=== PATIENT | male | born 1960 | race Caucasian/White ===

== ENCOUNTER → 2020-12-07 15:04 | Outpatient (BNVA) | payer SELFPAY | PROVIDERS: Family Provider Family Medicine; Visit Provider Nurse Practitioner Family | DX: Z20.822 Contact with and (suspected) exposure to COVID-19 (principal) | CPT/HCPCS: 87635 ==

== ENCOUNTER → 2022-06-02 11:23 | Outpatient (BNVA) | payer MEDICAID, SELFPAY | PROVIDERS: Family Provider Family Medicine; PCP Internal Medicine; Visit Provider Internal Medicine Rheumatology | DX: M25.50 Pain in unspecified joint (principal); M06.9 Rheumatoid arthritis, unspecified; Z79.899 Other long term (current) drug therapy; M19.90 Unspecified osteoarthritis, unspecified site; M05.79 Rheumatoid arthritis with rheumatoid factor of multiple sites without organ or systems involvement; Z71.85 Encounter for immunization safety counseling; M19.041 Primary osteoarthritis, right hand; M19.042 Primary osteoarthritis, left hand | CPT/HCPCS: 36415; 73130; 73562; 73630; 80076; 82565; 84550; 85025; 85651; 86140; 86480; 86704; 86803; 87340 ==

== ENCOUNTER → 2022-09-01 08:53 | Outpatient (BNVA) | payer MEDICAID, SELFPAY | PROVIDERS: Family Provider Family Medicine; PCP Family Medicine; Visit Provider Family Medicine | DX: I10 Essential (primary) hypertension (principal) | CPT/HCPCS: 80053; 80061; 83036 ==

== ENCOUNTER 2022-11-14 06:43 | Day surgery (SDC) | payer MEDICAID, SELFPAY ==
[2022-11-11 11:46] VITALS: BMI 34.4
[2022-11-14] VITALS (14 sets, daily range): BP systolic 129–180; BP diastolic 79–109; PULSE 72–94; RESP 16–18; TEMP 36.1–36.7; O2SAT 90–97
--- NOTE | 2022-11-14 06:58 | PM.HP ---
Providers/Chief Complaint Primary Care Provider: Itz Pierson MD Chief Complaint: K42.9 History of Present Illness Ely Hare is a 62 year old male here for laparoscopic repair of umbilical hernia with mesh Medications/Allergies Home Medications Medication Instructions Recorded Confirmed Last Taken Type lisinopril 40 mg tablet 40 mg PO DAILY #30 tabs 08/26/22 11/11/22 Unknown Rx amlodipine 10 mg tablet 10 mg PO DAILY #90 tabs 09/01/22 11/11/22 Unknown Rx metformin 500 mg tablet,extended 500 mg PO BID #180 tabs 09/02/22 11/11/22 Unknown Rx release 24hr prednisone 10 mg tablet 10 mg PO DAILY 11/11/22 11/11/22 Unknown History Allergies Allergy/AdvReac Type Severity Reaction Status Date / Time No Known Allergies Allergy Verified 11/11/22 11:43 PFSH Acute PFSH: Medical History Gout Hypertension Immunization counseling Seropositive rheumatoid arthritis of multiple sites Surgical History History of hernia repair Family History Mother Cancer breast Father Cancer non hodgkins lymphoma Other CAD (coronary artery disease) Diabetes Family history of premature coronary artery disease Denies family history of Rheumatoid arthritis Lupus Hyperlipidemia Chronic kidney disease (CKD) Lung disease Hypertension Stroke Social History Smoking and tobacco status: never smoked Alcohol intake: never Substance/Drug Use: never Lives independently: Yes Marital status: Single Number of children: 1 Current occupational status: retired Special jennifer needs: No Agree to transfusion: Yes Physical Exam Narrative: Abdomen: Preoperative measurement of umbilical hernia defect is 5 cm in diameter A&P Assessment and plan (1) Umbilical hernia: Qualifiers: Obstruction and gangrene presence: without obstruction or gangrene Qualified Code(s): K42.9 - Umbilical hernia without obstruction or gangrene Plan Laparoscopic umbilical hernia repair with mesh The risks and benefits of the procedure, including but not limited to, bleeding, infection, mesh infection requiring mesh excision antibiotic therapy and repeat surgery, damage surrounding structures, conversion to an open procedure, scar, numbness, pain, and/or recurrence were explained to the patient. Patient is understanding of the risks and wishes to proceed. Attestations Medical Necessity Statement*: home Coding Level of Care Code Acute Code for Chg Fwd Diagnoses Umbilical hernia K42.9 Obstruction and gangrene presence: without obstruction or gangrene
[2022-11-14] MEDS: sodium chloride 0.9% 1,000 ML 30 ML IV (07:16)
--- NOTE | 2022-11-14 07:36 | P.ANESASSM_ITS ---
Pre-Anesthetic Assessment Height/Weight: Height 1.7 m Weight 99.79 kg Temp Pulse Resp BP Pulse Ox O2 Del Method 97 F L 94 18 180/90 93 Room Air 11/14/22 07:22 11/14/22 07:22 11/14/22 07:22 11/14/22 07:22 11/14/22 07:22 11/14/22 07:22 Operation Date: 11/14/22 08:20 Proposed Procedures p 22900 lap umbilical hernia repair with mesh K42.9(Not Applicable) - Francisco Javier Cervantes DO Familial anesthetic complications: None Was Beta Linnette taken within 24 hours: N/A Was Clonidine taken within 24 hours: N/A Last intake: Intake Last Liquid Date 11/13/22 Last Liquid Time 22:00 Last Solid Date 11/13/22 Last Solid Time 22:00 Social No alcohol and No tobacco Exam alert, oriented x 3, clear to auscultation bilaterally and regular rate & rhythm Airway Mallampati: Class III Dentition: other (missing) CV/HEM Hypertension Metabolic Diabetes Mellitus and Morbid Obesity [facility] [place] Rheumatoid Arthritis Anesthetic Plan ASA status: 3 Anesthesia: General Risk of > 500 ml blood loss (7ml/kg in children): No Medications/Allergies Home Medications Medication Instructions Recorded Confirmed Last Taken Type lisinopril 40 mg tablet 40 mg PO DAILY #30 tabs 08/26/22 11/11/22 Unknown Rx amlodipine 10 mg tablet 10 mg PO DAILY #90 tabs 09/01/22 11/11/22 Unknown Rx metformin 500 mg tablet,extended 500 mg PO BID #180 tabs 09/02/22 11/11/22 Unknown Rx release 24hr prednisone 10 mg tablet 10 mg PO DAILY 11/11/22 11/11/22 Unknown History Allergies Allergy/AdvReac Type Severity Reaction Status Date / Time No Known Allergies Allergy Verified 11/11/22 11:43 Current Medications Generic Name Dose Route Start Last Admin Trade Name Freq PRN Reason Stop Dose Admin Sodium Chloride 1,000 mls @ 30 mls/hr 11/14/22 07:00 11/14/22 07:16 Sodium Chloride 0.9% IV 11/15/22 06:59 30 mls/hr .Q24H AMBER Administration PFSH Anesthesia Medical History Gout Hypertension Immunization counseling Seropositive rheumatoid arthritis of multiple sites Surgical History History of hernia repair Family History Mother Cancer breast Father Cancer non hodgkins lymphoma Other CAD (coronary artery disease) Diabetes Family history of premature coronary artery disease Denies family history of Rheumatoid arthritis Lupus Hyperlipidemia Chronic kidney disease (CKD) Lung disease Hypertension Stroke Social History Smoking and tobacco status: never smoked Alcohol intake: never Substance/Drug Use: never Lives independently: Yes Marital status: Single Number of children: 1 Current occupational status: retired Special jennifer needs: No Agree to transfusion: Yes Data Anesthesia Cardiac Studies: No Data to Display
[2022-11-14] MEDS: midazolam 1 mg/mL INJ 2 mL 2 MG IVP (07:38)
[2022-11-14] MEDS: ceFAZolin 2,000 MG in sodium chloride 0.9% (plus) 50 ML 100 MG IV (07:55)
[2022-11-14 08:14] LABS: Glucose Point of Care 172 mg/dL (70-110)
[2022-11-14] MEDS: lidocaine-epi 2% 20 mL INJ INJECTION (08:25)
--- NOTE | 2022-11-14 08:57 | PM.OP ---
Operative Report Date of procedure: November 14, 2022 Pre-op diagnosis: Umbilical hernia Post-op diagnosis: same Procedure done: Laparoscopic repair of umbilical hernia with mesh Implants: 11.4 cm round Ventralight mesh Specimens removed/disposition: Hernia sac Surgeon: Dr. Francisco Javier Cervantes DO Anesthesia: General Estimated blood loss (mL): 5 Complications: None apparent Brief History: This is a very pleasant 62-year-old gentleman with an umbilical hernia. Laparoscopic repair with mesh was indicated. The risk and benefits were explained and documented. Procedure: Patient was wheeled into the operative room and placed on the OR table in a supine position. Abdomen was inspected prepped and draped in usual sterile fashion. Time-out was performed and all present were in agreement. A 15 blade scalp was used to make a 5 millimeter incision left upper quadrant. A Veress needle was placed into the incision and intra-abdominal insufflation was brought to 15 millimeters of mercury. A 12 millimeter trocar was placed into the left lower quadrant. The energy but device was then used to cut out the hernia sac. Hernia sac was sent to pathology. Hernia defect measured 2 cm in diameter intraoperatively. An 11.4 cm ventralight mesh was placed into the abdomen and brought up through the umbilicus using an the Daniel-Rossana. The mesh was then tacked in place in a double crown fashion. The skeleton of the mesh was removed via the left lower quadrant. The hernia sac was then removed from the abdomen via the left lower quadrant. The left lower quadrant port site was closed with an 0 Vicryl suture and a Daniel-Rossana in a [id number] fashion. Incisions were closed with 4 O Vicryl in a subcuticular interrupted fashion. Skin glue was applied. A dressing that included cotton balls and a Tegaderm was placed over the umbilicus. Patient tolerated the procedure well.
[2022-11-14] MEDS: fentaNYL 50 mcg/mL INJ 2mL IVP (09:46)
[2022-11-14] MEDS: labetalol 5 mg/mL SDV 20mL 100 MG (09:47)
[2022-11-14] MEDS: HYDROcodone-acetaminophen 10-325 mg Tablet 1 TAB PO (10:45)
--- NOTE | 2022-11-14 10:50 | ANE.PACU2 ---
Inpatient post-anesthesia follow up: Airway intact: Yes Vital signs: Temperature 98 F Pulse Rate 74 Respiratory Rate 18 Blood Pressure 150/90 Pulse Oximetry 94 Oxygen Delivery Me thod Room Air Oxygen Flow Rate 2 Fraction of Inspir ed Oxygen Hydration adequate: Yes Nausea and vomiting: No Pain level: 1 Mental status: Baseline
== END 2022-11-14 11:18 | disposition home or self-care (01) ==
PROVIDERS: PCP Family Medicine; Visit Provider Surgery
PROC: 0WQF4ZZ Repair Abdominal Wall, Percutaneous Endoscopic Approach (ICD-10-PCS; CPT 49591; principal; 2022-11-14 08:20)
DX: K42.9 Umbilical hernia without obstruction or gangrene (principal); I10 Essential (primary) hypertension; M05.9 Rheumatoid arthritis with rheumatoid factor, unspecified; E11.9 Type 2 diabetes mellitus without complications; Z79.52 Long term (current) use of systemic steroids; Z79.84 Long term (current) use of oral hypoglycemic drugs
CPT/HCPCS: 49591; 36416; 82962; 88302; C1781; J0690; J1100; J2250; J2371; J2405; J2704; J2710; J3010; J3490; J7030

== ENCOUNTER → 2022-11-29 09:11 | Outpatient (BNVA) | payer MEDICAID, SELFPAY | PROVIDERS: PCP Family Medicine; Visit Provider Surgery | DX: Z98.890 Other specified postprocedural states (principal); Z87.19 Personal history of other diseases of the digestive system | CPT/HCPCS: 99024 ==

== ENCOUNTER → 2024-01-10 10:45 | Outpatient (BNVA) | payer MEDICAID, SELFPAY | PROVIDERS: PCP Family Medicine; Visit Provider Nurse Practitioner Family | DX: L57.0 Actinic keratosis (principal); L57.8 Other skin changes due to chronic exposure to nonionizing radiation; D69.2 Other nonthrombocytopenic purpura; I87.2 Venous insufficiency (chronic) (peripheral); D22.39 Melanocytic nevi of other parts of face; L81.4 Other melanin hyperpigmentation; Z85.828 Personal history of other malignant neoplasm of skin | CPT/HCPCS: 17000; 99213 ==

== ENCOUNTER 2024-01-22 16:53 | Emergency (ER) | payer MEDICAID, SELFPAY ==
[2024-01-22] VITALS (10 sets, daily range): BP systolic 167–194; BP diastolic 108–136; PULSE 94–118; RESP 12–22; TEMP 36.5–36.6; O2SAT 92–99; BMI 37.5
--- NOTE | 2024-01-22 17:10 | ECG_ITS ---
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 Measurements Intervals [place] Rate: 106 P: 54 MN: 174 QRS: 7 QRSD: 102 T: 100 QT: 355 QTc: 473 Interpretive Statements SINUS TACHYCARDIA POSSIBLE LEFT ATRIAL ENLARGEMENT [-0.1mV P-WAVE IN V1/V2] SEPTAL MYOCARDIAL INFARCTION , PROBABLY OLD [40+ ms Q WAVE IN V1/V2] Compared to ECG 08/29/2014 12:45:37 Myocardial infarct finding now present Sinus rhythm no longer present Left ventricular hypertrophy no longer present Electronically Signed On 01-23-2024 7:57:41 CDT by Jose Antonio Head M.D. [email or web address] [email or web address] [email or web address]/store/[id number] f
--- NOTE | 2024-01-22 18:23 | XRR_ITS ---
PROCEDURE INFORMATION: Exam: XR Chest Exam date and time: 01/22/2024 6:37 PM Age: 63 years old Clinical indication: Dyspnea TECHNIQUE: Imaging protocol: Radiologic exam of the chest. Views: 1 view. COMPARISON: No relevant prior studies available. FINDINGS: Lungs: Both lungs demonstrate diffuse interstitial coarsening which is felt to be chronic. No lung mass or infiltrate. Pleural spaces: Unremarkable. No pleural effusion. No pneumothorax. Heart/Mediastinum: Unremarkable. No cardiomegaly. Bones/joints: Unremarkable. XR/XR chest 1V portable [id number] IMPRESSION: No acute findings.
--- NOTE | 2024-01-22 18:40 | ECG_ITS ---
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 Measurements Intervals [place] Rate: 105 P: 41 ID: [id number] QRS: 3 QRSD: 102 T: 100 QT: 334 QTc: 443 Interpretive Statements SINUS TACHYCARDIA POSSIBLE LEFT ATRIAL ENLARGEMENT [-0.1mV P-WAVE IN V1/V2] SEPTAL MYOCARDIAL INFARCTION , PROBABLY OLD [40+ ms Q WAVE IN V1/V2] Compared to ECG 01/22/2024 17:10:47 No significant changes Electronically Signed On 01-23-2024 7:57:31 CDT by Jose Antonio Head M.D. [email or web address]/store/[id number] f
[2024-01-22 19:32] LABS: Basophils # 0.1 10^3/uL (0.0-0.1); Basophils % 0.9 %; Eosinophils # 0.4 10^3/uL (0.0-0.8); Eosinophils % 4.1 %; Hematocrit 42.7 % (37-53); Lymphocytes # 1.9 10^3/uL (0.8-4.8); Lymphocytes % 21.1 %; Mean Corpuscular HGB Conc 30.7 g/dL (30-55); Mean Corpuscular Hemoglobin 28.4 pg (27-33); Mean Corpuscular Volume 92.4 fl (82-101); Mean Platelet Volume 10.6 fL (7.4-10.4); Monocytes # 0.6 10^3/uL (0.2-0.9); Monocytes % 6.9 %; Neutrophils # 6.11 10^3/uL (1.8-7.7); Neutrophils % 66.7 %; Nucleated Red Blood Cells % 0 %; Platelet Count 256 10^3/cmm (157-399); Red Blood Count 4.62 10^6/uL (3.85-5.65); Red Cell Distribution Width 14.2 % (12.1-15.1); White Blood Count 9.16 10^3/uL (3.29-11.43)
[2024-01-22 19:45] LABS: Alanine Aminotransferase 28 U/L (0-41); Albumin Level 4.3 g/dL (3.5-5.2); Alkaline Phosphatase 109 U/L (40-130); Blood Urea Nitrogen 21 mg/dL (8-23); Calcium 9.7 mg/dL (8.5-10.5); Carbon Dioxide 25 mmol/L (22-29); Chloride 103 mmol/L (98-107); Creatinine Clr Calc Pharmacy 62.7338; Globulin 2.1 g/dL (1.3-4.6); Glucose 160 mg/dL (65-115); Osmolality Calculated 296 mOsm/kg (285-295); Sodium 140 mmol/L (136-145); Total Bilirubin 2.1 mg/dL (0.15-1.2); Total Protein 6.4 g/dL (6.6-8.7)
[2024-01-22 19:49] LABS: Anion Gap 16.4 (5-19); Aspartate Amino Transferase 30 U/L (0-40); Potassium 4.4 mmol/L (3.5-5.1)
--- NOTE | 2024-01-22 21:02 | CTR_ITS ---
PROCEDURE INFORMATION: Exam: CTA Chest With Contrast Exam date and time: 01/22/2024 9:26 PM Age: 63 years old Clinical indication: Dyspnea; Additional info: Tachycardia, tachypnea dyspnea TECHNIQUE: Imaging protocol: Computed tomographic angiography of the chest with contrast. Exam focused on the arteries. 3D rendering (Not supervised by radiologist): MIP and/or 3D reconstructed images were created by the technologist. Radiation optimization: All CT scans at this facility use at least one of these dose optimization techniques: automated exposure control; mA and/or kV adjustment per patient size (includes targeted exams where dose is matched to clinical indication); or iterative reconstruction. Contrast material: OMNI 350; Contrast volume: 100 ml; Contrast route: INTRAVENOUS (IV); COMPARISON: CR (CHEST, ) 01/22/2024 6:37 PM RADIATION DOSE METRICS: Total DLP (mGy-cm): 594 FINDINGS: Pulmonary arteries: Normal. No pulmonary emboli. Aorta: Unremarkable. No aortic aneurysm. No aortic dissection. Lungs: There is diffuse bronchial wall thickening and mucous plugging scattered throughout both lungs. Hazy ground-glass density is noted throughout both lungs and there is diffuse septal edema bilaterally. Pleural spaces: Small bilateral pleural effusions are noted. Heart: Moderate cardiomegaly is noted. Lymph nodes: Unremarkable. No enlarged lymph nodes. Bones/joints: Unremarkable. No acute fracture. Soft tissues: Unremarkable. CT/CT angio chest PE protcl [id number] IMPRESSION: Findings most consistent with congestive heart failure. There may also be a component of reactive airway disease
--- NOTE | 2024-01-22 21:05 | ED_ITS ---
HPI - SOB/Dyspnea 2 General: Chief Complaint: Shortness of Breath/Dyspnea Stated Complaint: SOB Time Seen by Provider: 01/22/24 20:25 History of Present Illness: HPI Narrative: Patient presents to the ER with about a 3-day history of worsening shortness of breath. Patient denies any history of COPD or asthma. Patient does state that he has a home oxygen tank that is not his and has had to use it multiple times throughout the day. Patient did say he had COVID twice the last time being a couple years ago but he had to be inpatient multiple days during his COVID. Upon arrival patient's heart rate was 109 beats a minute respirations 21. O2 sat was approximately 95% when placed on 2 L. Patient says he feels like he cannot take a big deep breath and move air. Patient denies any chest pain coughs colds fevers chills at this time. Related Data Previous Rx's Medication Instructions Recorded docusate sodium 100 mg capsule 100 mg PO BID #14 caps 11/14/22 (Colace) amlodipine 10 mg tablet 10 mg PO DAILY #90 tabs 11/23/22 hydrochlorothiazide 12.5 mg capsule 25 mg (2 x 12.5 mg) PO QAM #30 caps 11/23/22 lisinopril 40 mg tablet 40 mg PO DAILY #90 tabs 11/23/22 metformin 500 mg tablet,extended 500 mg PO BID #180 tabs 11/23/22 release 24hr (osmotic) Allergies Allergy/AdvReac Type Severity Reaction Status Date / Time No Known Allergies Allergy Verified 01/22/24 17:16 Review of Systems 2 General: Reports: 10 or more systems reviewed and unremarkable except in HPI and below PFSH ED 2 PFSH: Medical History Psychiatric care Gout Immunization counseling Seropositive rheumatoid arthritis of multiple sites Hypertension Surgical History History of hernia repair Family History Mother Cancer breast Father Cancer non hodgkins lymphoma Other CAD (coronary artery disease) Diabetes Family history of premature coronary artery disease Denies family history of Rheumatoid arthritis Lupus Hyperlipidemia Chronic kidney disease (CKD) Lung disease Hypertension Stroke Social History (Reviewed 01/22/24 @ 21:06 by KALPESH Dyer Smoking and tobacco/nicotine status: never used tobacco/nicotine Alcohol intake: never Substance/Drug Use: never Lives independently: Yes Marital status: Single Number of children: 1 Current occupational status: retired Special jennifer needs: No Agree to transfusion: Yes Physical Exam 2 Const: COMMON NORMALS: no acute distress, average body habitus, patient oriented x3, no limitations, healthy appearing, alert and well nourished HENMT: COMMON NORMALS: normocephalic, atraumatic, hearing grossly normal bilaterally, external ears normal, Normal external nose present and moist oral mucous membranes HEAD & SCALP: normocephalic and atraumatic NOSE: Normal external nose present EXTERNAL EAR: Yes external ears normal Neck/C-Spine: COMMON NORMALS: no JVD Chest: COMMONS NORMALS: normal inspection of the chest and normal palpation of entire chest wall Resp: COMMON NORMALS: normal respiratory effort, No retractions, No use of accessory muscles and clear to auscultation bilaterally AUSCULTATION: clear to auscultation bilaterally Cardio: COMMON NORMALS: no JVD, regular rate, regular rhythm, S1 normal heart sound present, S2 normal heart sound present, No gallops present (Cardio), No clicks present (Cardio), No murmurs present (Cardio) and No rub (Cardio) R ATE: regular rate RHYTHM: regular rhythm HEART SOUNDS: S1 normal heart sound present and S2 normal heart sound present GI: COMMON NORMALS: Normal to inspection, nondistended, normoactive bowel sounds present, Soft to palpation, non-tender, No hepatosplenomegaly present and no masses PALPATION: Yes Soft to palpation and Yes No hepatosplenomegaly present Neuro: COMMON NORMALS: patient oriented x3 SENSORIUM/ORIENTATION: Yes alert Course 2 Vital Signs: Vital signs: Vital Signs Temperature 97.7 F 01/22/24 18:41 Pulse Rate 109 H 01/23/24 00:00 Respiratory Rate 18 01/23/24 00:00 Blood Pressure 175/131 01/23/24 00:00 Pulse Oximetry 97 01/23/24 00:00 Oxygen Delivery Me thod Nasal Cannula 01/23/24 00:00 Oxygen Flow Rate 4 01/23/24 00:00 MDM - SOB/Dyspnea Medical Decision Making Patient left AMA while waiting for test to return. Differential Diagnosis Unlikely acute exacerbation of chronic obstructive airways disease, congestive heart failure, community acquired pneumonia, asthma with exacerbation or pulmonary embolism Medical Records I reviewed the patient's medical records. Lab Data I reviewed the patient's lab results. 01/22/24 19:08 01/22/24 19:08 Labs/Radiology: Radiology Impressions Chest X-Ray 01/22/24 18:23 IMPRESSION: No acute findings. Chest CTA 01/22/24 21:02 IMPRESSION: Findings most consistent with congestive heart failure. There may also be a component of reactive airway disease Laboratory Results WBC 9.16 10^3/uL (3.29-11.43) 01/22/24 19:08 RBC 4.62 10^6/uL (3.85-5.65) 01/22/24 19:08 Hgb 13.10 g/dL (11.27-16.99) 01/22/24 19:08 Hct 42.7 % (37-53) 01/22/24 19:08 MCV 92.4 fl (82-101) 01/22/24 19:08 MCH 28.4 pg (27-33) 01/22/24 19:08 MCHC 30.7 g/dL (30-55) 01/22/24 19:08 RDW 14.2 % (12.1-15.1) 01/22/24 19:08 Plt Count 256 10^3/cmm (157-399) 01/22/24 19:08 MPV 10.6 fL (7.4-10.4) H 01/22/24 19:08 Neut % (Auto) 66.7 % 01/22/24 19:08 Lymph % (Auto) 21.1 % 01/22/24 19:08 [place] % (Auto) 6.9 % 01/22/24 19:08 Eos % (Auto) 4.1 % 01/22/24 19:08 Baso % (Auto) 0.9 % 01/22/24 19:08 Neut # (Auto) 6.11 10^3/uL (1.8-7.7) 01/22/24 19:08 Lymph # (Auto) 1.9 10^3/uL (0.8-4.8) 01/22/24 19:08 [place] # (Auto) 0.6 10^3/uL (0.2-0.9) 01/22/24 19:08 Eos # (Auto) 0.4 10^3/uL (0.0-0.8) 01/22/24 19:08 Baso # (Auto) 0.1 10^3/uL (0.0-0.1) 01/22/24 19:08 Nucleated RBC % (auto) 0 % 01/22/24 19:08 Nucleated RBCs # 0.0 /100WBC 01/22/24 19:08 Sodium 140 mmol/L (136-145) 01/22/24 19:08 Potassium 4.4 mmol/L (3.5-5.1) 01/22/24 19:08 Chloride 103 mmol/L (98-107) 01/22/24 19:08 Carbon Dioxide 25 mmol/L (22-29) 01/22/24 19:08 Anion Gap 16.4 (5-19) 01/22/24 19:08 BUN 21 mg/dL (8-23) 01/22/24 19:08 Creatinine 1.4 mg/dL (0.7-1.2) H 01/22/24 19:08 GFR Calculation 51.0 mL/min (90-130) L 01/22/24 19:08 Glucose 160 mg/dL (65-115) H 01/22/24 19:08 Calculated Osmolality 296 mOsm/kg (285-295) H 01/22/24 19:08 Calcium 9.7 mg/dL (8.5-10.5) 01/22/24 19:08 Total Bilirubin 2.1 mg/dL (0.15-1.2) H 01/22/24 19:08 AST 30 U/L (0-40) 01/22/24 19:08 ALT 28 U/L (0-41) 01/22/24 19:08 Alkaline Phosphatase 109 U/L (40-130) 01/22/24 19:08 NT-Pro-B Natriuret Pep 4250 pg/mL (0-125) H 01/22/24 19:08 Total Protein 6.4 g/dL (6.6-8.7) L 01/22/24 19:08 Albumin 4.3 g/dL (3.5-5.2) 01/22/24 19:08 Globulin 2.1 g/dL (1.3-4.6) 01/22/24 19:08 Coronavirus (PCR) Negative (Negative) 01/22/24 20:14 Influenza A (PCR) Negative (Negative) 01/22/24 20:14 Influenza Type B (PCR) Negative (Negative) 01/22/24 20:14 RSV (PCR) Negative (Negative) 01/22/24 20:14 All radiology interpretation(s) finalized by discharge Discharge Plan Discharge Patient Disposition: Left Against Medical Advice Clinical Impression: Left against medical advice Condition: Stable Prescriptions: No Action hydrochlorothiazide 12.5 mg capsule 25 mg PO QAM Qty: 30 1RF amlodipine 10 mg tablet 10 mg PO DAILY Qty: 90 1RF metformin 500 mg tablet extended release 24hr 500 mg PO BID Qty: 180 1RF lisinopril 40 mg tablet 40 mg PO DAILY Qty: 90 1RF Colace 100 mg capsule 100 mg PO BID Qty: 14 0RF Referrals: Itz Pierson MD [Primary Care Provider] - 1 week Patient Instructions: Against Medical Advice (ED) Coding Level of Care Code ED 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
[2024-01-22] MEDS: iohexol 350 mg/mL 500 mL Btl (per mL) IV (21:30)
[2024-01-22 21:39] LABS: Covid PCR NEGATIVE (Negative); Influenza A NEGATIVE (Negative); Influenza B NEGATIVE (Negative); Respiratory Syncytial Virus Ce NEGATIVE (Negative)
[2024-01-22 22:46] LABS: NT Pro B Type Natriuretic Pept 4250 pg/mL (0-125)
[2024-01-22] MEDS: hyDRALAzine 20 mg/mL INJ 1 mL IVP (23:34)
[2024-01-22] MEDS: FUROsemide 10 mg/mL SDV 4mL 40 MG IVP (23:34)
[2024-01-23] VITALS: BP 175/131; PULSE 109; RESP 18; O2SAT 97
== END 2024-01-23 00:18 | disposition left against medical advice (07) ==
PROVIDERS: Emergency Provider Emergency Medicine; PCP Family Medicine
DX: R06.02 Shortness of breath (principal); Z79.84 Long term (current) use of oral hypoglycemic drugs; I10 Essential (primary) hypertension; Z53.29 Procedure and treatment not carried out because of patient's decision for other reasons
CPT/HCPCS: 0241U; 36415; 71045; 71275; 80053; 83880; 85025; 93005; 96374; 96375; 99285; J0360; J1940

== ENCOUNTER 2024-04-24 09:07 | Inpatient (IN) | payer BC, MEDICAID, SELFPAY ==
[2024-04-24] VITALS (47 sets, daily range): BP systolic 116–160; BP diastolic 85–115; PULSE 78–109; RESP 9–29; TEMP 36.6–37.2; O2SAT 85–100; BMI 39.1
--- NOTE | 2024-04-24 09:37 | XR_ITS ---
WS: [id number] Portable AP semiupright chest, 04/24/2024 Clinical Data: dyspnea/cough Comparison: Portable chest, 01/22/2024 Findings: No nodules, masses or effusions are seen. The heart is enlarged. The pulmonary vascularity is not increased. No pneumonia or pneumothorax is seen. The aortic arch and descending thoracic aorta show tortuosity. The right diaphragm is elevated and the patient has a poor inspiratory effort. Jocelynn tor leads are on the chest wall. XR/XR chest 1V portable [id number] Impression: Cardiomegaly and atherosclerosis.
--- NOTE | 2024-04-24 09:37 | ECG_ITS ---
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 Measurements Intervals [place] Rate: 88 P: 10 CA: 189 QRS: 38 QRSD: 100 T: -33 QT: 376 QTc: 455 Interpretive Statements SINUS RHYTHM ABNORMAL QRS-T ANGLE [QRS-T AXIS DIFFERENCE > 60] Compared to ECG 01/22/2024 18:41:37 Sinus tachycardia no longer present Myocardial infarct finding no longer present Electronically Signed On 04-24-2024 21:16:32 ARMATURE WINDER REPAIR HELPER by Marylu Nick M.D. [id number]
[2024-04-24 09:58] LABS: Basophils # 0.1 10^3/uL (0.0-0.1); Basophils % 0.8 %; Eosinophils # 0.3 10^3/uL (0.0-0.8); Eosinophils % 2.5 %; Hematocrit 45.2 % (37-53); Lymphocytes # 1.3 10^3/uL (0.8-4.8); Lymphocytes % 11.4 %; Mean Corpuscular HGB Conc 28.8 g/dL (30-55); Mean Corpuscular Hemoglobin 22.5 pg (27-33); Mean Corpuscular Volume 78.2 fl (82-101); Mean Platelet Volume 10.6 fL (7.4-10.4); Monocytes # 0.9 10^3/uL (0.2-0.9); Monocytes % 7.6 %; Neutrophils % 77.4 %; Nucleated Red Blood Cells % 0 %; Platelet Count 438 10^3/cmm (157-399); Red Blood Count 5.78 10^6/uL (3.85-5.65); Red Cell Distribution Width 19.7 % (12.1-15.1); White Blood Count 11.62 10^3/uL (3.29-11.43)
[2024-04-24 09:58] LABS: ABG PCO2 34.3 mmHg (35-45); ABG PH Result 7.42 (7.35-7.45); Alveolar-Arterial Oxygen Gradi 1.5 mmHg (5-10); Base Excess ABG -1.9 mmol/L (-2.0-2.0); Blood Gas Allen Test Pos; Blood Gas Operator Identificat WALCI; Blood Gas Sample Site Radial, left; Blood Gas Sample Type Arterial; Carboxyhemoglobin 1.3 %THgb (0.4-20.1); HGB O2 Sat 96.1 % (95-100); Ionized Calcium Level - ABG 1.2 mmol/L (1.1-1.4); Methemoglobin 0.8 % (0.4-1.5); Oxygen Device NC; Oxygen Saturation ABG 98.2; PO2 ABG 95.5 mmHg (80.0-100.0); Potassium Level - ABG 3.8 mmol/L (3.5-5.0); Total Hemoglobin 12.4 g/dL (14-18)
[2024-04-24 10:06] LABS: Alanine Aminotransferase 30 U/L (0-41); Albumin Level 3.7 g/dL (3.5-5.2); Alkaline Phosphatase 173 U/L (40-130); Anion Gap 15.9 (5-19); Aspartate Amino Transferase 34 U/L (0-40); Blood Urea Nitrogen 30 mg/dL (8-23); Calcium 9.6 mg/dL (8.5-10.5); Carbon Dioxide 25 mmol/L (22-29); Chloride 106 mmol/L (98-107); Creatine Phosphokinase 257 U/L (39-308); Creatinine Clr Calc Pharmacy 52.7897; Globulin 3.6 g/dL (1.3-4.6); Glomerular Filtration Rate 40.8 mL/min (90-130); Glucose 123 mg/dL (65-115); Lactic Sepsis W/Reflex 2.2 mmol/L (0.5-2.2); Lipase 91 U/L (13-60); Osmolality Calculated 304 mOsm/kg (285-295); Potassium 3.9 mmol/L (3.5-5.1); Sodium 143 mmol/L (136-145); Total Bilirubin 1.3 mg/dL (0.15-1.2); Total Protein 7.3 g/dL (6.6-8.7)
--- NOTE | 2024-04-24 11:04 | PC.PHAR ---
Last known medications picked up from Pharmacy is Entresto and Carvedilol ,verified with [facility] .Pharmacy stated he did use a good Rx coupon. They stated last fill was 03/07/24 30days . Patient did state in between falling a sleep, that he thinks he still takes them .
--- NOTE | 2024-04-24 11:08 | ED_ITS ---
HPI - General Adult 2 General: Chief complaint: ER Hold Stated complaint: MRSA, HTN Time Seen by Provider: 04/24/24 09:36 History of Present Illness: 63-year-old male [facility] with complaints of generally not feeling well some shortness of breath swelling in his legs it is moving proximal he has some orthopnea he has some skin breakdown and wounds with redness and pain in his lower extremities. He had problems with infection and cellulitis in his lower extremities before. He does have oxygen at home but says he only uses it occasionally he has needed recently and is requiring 3 L by nasal cannula here. He denies any chest pain. Associated symptoms: Deny chest pain, dyspnea or rash Related Data Home Medications Medication Instructions Recorded Confirmed carvedilol 6.25 mg tablet 6.25 mg PO BID 04/24/24 04/24/24 sacubitril 24 mg-valsartan 26 mg 1 tab PO BID 04/24/24 04/24/24 tablet (Entresto) Previous Rx's Medication Instructions Recorded docusate sodium 100 mg capsule 100 mg PO BID #14 caps 11/14/22 (Colace) Allergies Allergy/AdvReac Type Severity Reaction Status Date / Time No Known Allergies Allergy Verified 01/22/24 17:16 Review of Systems 2 Const: Denies: fever(s) or chills Card: Denies: chest pain Resp: Denies: dyspnea GI: Denies: abdominal pain : Denies: dysuria, urinary frequency or urinary urgency Musc: Denies: neck pain or back pain Skin/Breast: Denies: rash PFSH ED 2 PFSH: Medical History Psychiatric care Gout Immunization counseling Seropositive rheumatoid arthritis of multiple sites Hypertension Surgical History History of hernia repair Family History Mother Cancer breast Father Cancer non hodgkins lymphoma Other CAD (coronary artery disease) Diabetes Family history of premature coronary artery disease Denies family history of Rheumatoid arthritis Lupus Hyperlipidemia Chronic kidney disease (CKD) Lung disease Hypertension Stroke Social History Smoking and tobacco/nicotine status: never used tobacco/nicotine Alcohol intake: never Substance/Drug Use: never Lives independently: Yes Marital status: Single Number of children: 1 Current occupational status: retired Special jennifer needs: No Agree to transfusion: Yes Physical Exam 2 Const: ORIENTATION/CONSCIOUSNESS: Yes awake HENMT: COMMON NORMALS: normocephalic, atraumatic and hearing grossly normal bilaterally HEAD & SCALP: normocephalic and atraumatic Resp: COMMON NORMALS: normal respiratory effort, No retractions, No use of accessory muscles and clear to auscultation bilaterally AUSCULTATION: clear to auscultation bilaterally Cardio: COMMON NORMALS: regular rate, regular rhythm and No murmurs present (Cardio) RATE: regular rate RHYTHM: regular rhythm GI: COMMON NORMALS: Soft to palpation and No hepatosplenomegaly present A USCULTATION: Yes normoactive bowel sounds PALPATION: Yes Soft to palpation, No Tenderness to palpation present (GI), No Guarding due to palpation present (GI) and Yes No hepatosplenomegaly present Extremity: OTHER: 2+ edema in the lower extremities extend ing anasarca above the level of the umbilicus. Course 2 Vital Signs: Vital signs: Vital Signs Temperature 97.9 F 04/24/24 09:18 Pulse Rate 91 04/24/24 13:35 Respiratory Rate 11 L 04/24/24 13:35 Blood Pressure 150/98 04/24/24 13:35 Pulse Oximetry 95 04/24/24 13:35 Oxygen Delivery Me thod Nasal Cannula 04/24/24 13:00 Oxygen Flow Rate 3 04/24/24 13:00 [facility] - General Adult Medical Decision Making Significant fluid overload along with bilateral lower extremity cellulitis started on linezolid. Patient given Lasix. Discussed with hospitalist orders have been written. Lactic acid is 1.5. Cultures done. Medical Records I reviewed the patient's medical records. Lab Data I reviewed the patient's lab results. 04/24/24 08:45 04/24/24 08:45 Radiology Impressions Chest X-Ray 04/24/24 09:37 Impression: Cardiomegaly and atherosclerosis. Laboratory Results WBC 11.62 10^3/uL (3.29-11.43) H 04/24/24 08:45 RBC 5.78 10^6/uL (3.85-5.65) H 04/24/24 08:45 Hgb 13.00 g/dL (11.27-16.99) 04/24/24 08:45 Hct 45.2 % (37-53) 04/24/24 08:45 MCV 78.2 fl (82-101) L 04/24/24 08:45 MCH 22.5 pg (27-33) L 04/24/24 08:45 MCHC 28.8 g/dL (30-55) L 04/24/24 08:45 RDW 19.7 % (12.1-15.1) H 04/24/24 08:45 Plt Count 438 10^3/cmm (157-399) H 04/24/24 08:45 MPV 10.6 fL (7.4-10.4) H 04/24/24 08:45 Neut % (Auto) 77.4 % 04/24/24 08:45 Lymph % (Auto) 11.4 % 04/24/24 08:45 [place] % (Auto) 7.6 % 04/24/24 08:45 Eos % (Auto) 2.5 % 04/24/24 08:45 Baso % (Auto) 0.8 % 04/24/24 08:45 Neut # (Auto) 9.00 10^3/uL (1.8-7.7) H 04/24/24 08:45 Lymph # (Auto) 1.3 10^3/uL (0.8-4.8) 04/24/24 08:45 [place] # (Auto) 0.9 10^3/uL (0.2-0.9) 04/24/24 08:45 Eos # (Auto) 0.3 10^3/uL (0.0-0.8) 04/24/24 08:45 Baso # (Auto) 0.1 10^3/uL (0.0-0.1) 04/24/24 08:45 Nucleated RBC % (auto) 0 % 04/24/24 08:45 Nucleated RBCs # 0.0 /100WBC 04/24/24 08:45 Specimen Type Arterial 04/24/24 09:48 Sample Site Radial, left 04/24/24 09:48 ABG pH 7.42 (7.35-7.45) 04/24/24 09:48 ABG pCO2 34.3 mmHg (35-45) L 04/24/24 09:48 ABG pO2 95.5 mmHg (80.0-100.0) 04/24/24 09:48 ABG HCO3 22.0 mmol/L (22-26) 04/24/24 09:48 ABG O2 Saturation 98.2 04/24/24 09:48 ABG Base Excess -1.9 mmol/L (-2.0-2.0) 04/24/24 09:48 Shawn Test Pos 04/24/24 09:48 A-a O2 Gradient 1.5 mmHg (5-10) L 04/24/24 09:48 Hematocrit 38.0 % (42-52) L 04/24/24 09:48 Hgb O2 Saturation 96.1 % (95-100) 04/24/24 09:48 Carboxyhemoglobin 1.3 %THgb (0.4-20.1) 04/24/24 09:48 Methemoglobin 0.8 % (0.4-1.5) 04/24/24 09:48 Total Hemoglobin 12.4 g/dL (14-18) L 04/24/24 09:48 Sodium 143.0 mmol/L (131-143) 04/24/24 09:48 Potassium 3.8 mmol/L (3.5-5.0) 04/24/24 09:48 Glucose 112.0 mg/dL (70-115) 04/24/24 09:48 Ionized Calcium 1.2 mmol/L (1.1-1.4) 04/24/24 09:48 O2 Delivery Device Nc 04/24/24 09:48 O2 Liters/Min 3.0 % 04/24/24 09:48 Hydraulic Plumber ID [place] 04/24/24 09:48 Sodium 143 mmol/L (136-145) 04/24/24 08:45 Potassium 3.9 mmol/L (3.5-5.1) 04/24/24 08:45 Chloride 106 mmol/L (98-107) 04/24/24 08:45 Carbon Dioxide 25 mmol/L (22-29) 04/24/24 08:45 Anion Gap 15.9 (5-19) 04/24/24 08:45 BUN 30 mg/dL (8-23) H 04/24/24 08:45 Creatinine 1.7 mg/dL (0.7-1.2) H 04/24/24 08:45 GFR Calculation 40.8 mL/min (90-130) L 04/24/24 08:45 Glucose 123 mg/dL (65-115) H 04/24/24 08:45 Calculated Osmolality 304 mOsm/kg (285-295) H 04/24/24 08:45 Lactic Acid 2.2 mmol/L (0.5-2.2) 04/24/24 08:45 Calcium 9.6 mg/dL (8.5-10.5) 04/24/24 08:45 Magnesium 2.0 mg/dL (1.7-2.3) 04/24/24 08:45 Total Bilirubin 1.3 mg/dL (0.15-1.2) H 04/24/24 08:45 AST 34 U/L (0-40) 04/24/24 08:45 ALT 30 U/L (0-41) 04/24/24 08:45 Alkaline Phosphatase 173 U/L (40-130) H 04/24/24 08:45 Creatine Kinase 257 U/L (39-308) 04/24/24 08:45 Total Protein 7.3 g/dL (6.6-8.7) 04/24/24 08:45 Albumin 3.7 g/dL (3.5-5.2) 04/24/24 08:45 Globulin 3.6 g/dL (1.3-4.6) 04/24/24 08:45 Lipase 91 U/L (13-60) H 04/24/24 08:45 All radiology interpretation(s) finalized by discharge Discharge Plan Discharge Patient Disposition: Admitted As Inpatient Admit Provider: Jaret Smith Clinical Impression: Bilateral cellulitis of lower leg, Hypertension, BMI 37.0-37.9, adult, Type 2 diabetes mellitus, Acute kidney injury, Congestive heart failure Condition: Stable Coding Level of Care Code ED [employer] Life Support Fitter for Hannah Redman
--- NOTE | 2024-04-24 11:17 | USCV_ITS ---
Ely Hare Age: 63 Gender: M : 1960 Exam Date: 04/24/2024 12:11 Ordering Phys: Curt Daley DO Technologist: Exam Location: [facility] [place] Indication: cold feet ankle ulcers Risk Factors: Previous Vascular Surgery: RIGHT LEFT BP: 140.0 / 80.00 BP: 140.0/ 80.00 0 0 Waveform Velocity (cm/s) Velocity (cm/s) Waveform Triphasic 55.1 Iliac Prox 64.2 Triphasic Triphasic 63.9 Iliac Mid 76.4 Triphasic Triphasic 88.1 Iliac Distal 77.7 Triphasic Triphasic 83.0 BOAT BUFFER PLASTIC 62.0 Triphasic Triphasic 75.0 SFA Prox 66.0 Triphasic Triphasic 53.0 SFA Mid 43.0 Biphasic Triphasic SFA Dist Triphasic 77.0 47.0 Triphasic 43.0 POP 63.0 Triphasic Triphasic 38.0 BORING MACHINE SET UP OPERATOR 21.0 Triphasic Triphasic 43.0 DPA 33.0 Biphasic 1.0 BLAINE 1.0 FINDINGS Intimal thickening in the iliac and femoral arteries bilaterally Normal arterial Doppler waveforms and velocities bilaterally Resting BLAINE is 1.0 on both sides CONCLUSIONS 1. Normal resting ABIs bilaterally 2. No unstable plaques or lesions were noted 3. No significant arterial obstruction, based on the above findings Dr Marylu Nick MD [facility] (Electronically Signed) Final Date: 24 April 2024 21:57 S
[2024-04-24 11:40] LABS: Reflex Lactate Order REFLEX LACTIC ORDERD
[2024-04-24] MEDS: FUROsemide 10 mg/mL SDV 10mL 40 MG IVP (12:38)
[2024-04-24] MEDS: linezolid premix 600 MG/300 ML PREMIX 300 MG IV (12:44)
[2024-04-24 13:21] LABS: Bilirubin Urine 1+ (Negative); Blood Urine Negative (Negative); Glucose Urine UA Negative (Normal); Ketones Urine Negative (Negative); Leukocyte Esterase Urine Trace (Negative); Nitrate Urine Negative (Negative); Protein Urine 3+ (Negative); Urine Appearance Cloudy (CLEAR); Urine Color Dark Yellow (Yellow); pH Urine 5.5 (5-7)
[2024-04-24 13:26] LABS: Add Urine Microscopic? YES; Bacteria Urine None Seen /hpf; Hyaline Casts Urine 25.23 /lpf; RBC Urine 0-2 /hpf (0-2); Squamous Epithelial Cell Urine 0-5 /hpf (0-5); WBC Urine 0-5 /hpf (0-5)
[2024-04-24 13:36] LABS: Lactic Acid level (Lactate) 1.5 mmol/L (0.5-2.2)
[2024-04-24 13:51] LABS: UA Slide Review UA Slide Review Perf
[2024-04-24 13:53] LABS: Add Urine Culture? No; Amorphous Sediment Urine TRACE /hpf; Calcium Oxalate Crystals Urine 15-25 /hpf; Fine Granular Casts Urine 0-4 /lpf; Sperm Urine 1+ /hpf
--- NOTE | 2024-04-24 13:58 | P.HP_ITS ---
Providers/Chief Complaint 2 Admitting Physician: Jaret Smith MD Primary Care Provider: Itz Pierson MD Chief Complaint: MRSA, HTN History of Present Illness Ely Hare is a 63 year old male presenting to the hospital short of breath, swollen. He reports has been going on for months. He relates his last hospital stay was at [place] where he was diuresed. He stated out for 5 days. He denies any chest discomfort, fever. He reports he has chronic lower extremity ulcers. Typically uses 3 L of oxygen, intermittently. No vomiting, diarrhea, blood in stool, black or tarry stools. Review of Systems 2 General: Reports: 10 or more systems reviewed and unremarkable except in HPI and below Card: Denies: chest pain Resp: Reports: dyspnea GI: Denies: abdominal pain, nausea or vomiting Medications/Allergies Home Medications Medication Instructions Recorded Confirmed Last Taken Type docusate sodium 100 mg capsule 100 mg PO BID #14 caps 11/14/22 04/24/24 Unknown Rx (Colace) carvedilol 6.25 mg tablet 6.25 mg PO BID 04/24/24 04/24/24 Unknown History sacubitril 24 mg-valsartan 26 mg 1 tab PO BID 04/24/24 04/24/24 Unknown History tablet (Entresto) Allergies Allergy/AdvReac Type Severity Reaction Status Date / Time No Known Allergies Allergy Verified 01/22/24 17:16 PFSH Acute 2 PFSH: Medical History Congestive heart failure Psychiatric care Gout Immunization counseling Seropositive rheumatoid arthritis of multiple sites Hypertension Surgical History History of hernia repair Family History Mother Cancer breast Father Cancer non hodgkins lymphoma Other CAD (coronary artery disease) Diabetes Family history of premature coronary artery disease Denies family history of Rheumatoid arthritis Lupus Hyperlipidemia Chronic kidney disease (CKD) Lung disease Hypertension Stroke Social History Smoking and tobacco/nicotine status: never used tobacco/nicotine Alcohol intake: never Substance/Drug Use: never Lives independently: Yes Marital status: Single Number of children: 1 Current occupational status: retired Special jennifer needs: No Agree to transfusion: Yes Vitals/I&O/Wt Last Vital Signs Temp 97.9 F 04/24/24 09:18 Pulse 91 04/24/24 13:35 Resp 11 L 04/24/24 13:35 BP 150/98 04/24/24 13:35 Pulse Ox 95 04/24/24 13:35 O2 Del Method Nasal Cannula 04/24/24 13:00 O2 Flow Rate 3 04/24/24 13:00 Weight last 48 hrs Weight 113.398 kg Physical Exam 2 Narrative: General Exam, unkempt, obviously short of breath, with retractions. Respiratory rate when I was in the room was approximately 25. Oxygen saturation with laying back slightly went down to 85%. He is upright in bed. HEENT: Atraumatic normocephalic. Oropharynx clear Neck is supple no lymphadenopathy thyromegaly Cardiovascular regular rate and rhythm with a 2/6 systolic murmur Lungs diminished breath sounds bilaterally. No wheezes Abdomen positive bowel sounds. Indurated below the umbilicus. Obvious soft tissue edema. exam demonstrates swollen scrotum Extremities show 4+ edema all the way to his abdomen and pannus. Multiple sores including 1 with a black eschar on the right chowdhury. They are on the posterior and anterior of his calves. Some irritation of his heels. On his buttocks there is some redness, excoriations, and at least a left hip decub as well with a stage II. None of these appear severely infected. Skin see findings above Neuro no focal deficits Urinary Catheter Management: Marsh: Cath Placed During This Visit: yes Urinary Catheter Date of Insertion: 04/24/24 Data 04/24/24 08:45 04/24/24 08:45 Other Labs: ABG demonstrates a pH of 7.42, pCO2 34, pO2 95 on 3 L Liver function tests are normal with exception of bilirubin of 1.3 and alk phos of 173 Lipase 91 CK normal Albumin, calcium normal Lactic acid normal I have ordered a TSH, some iron studies Urinalysis with 0-2 reds and 0-5 whites Chest x-ray per my read demonstrates cardiomegaly, atherosclerosis Blood culture was obtained EKG demonstrates sinus rhythm, normal axis, poor R wave progression. Nonspecific ST-T wave changes. Micro: Microbiology 04/24/24 11:02 Blood Culture - Preliminary Blood SPECIMEN COLLECTED 04/24/24 11:05 Blood Culture - Preliminary Blood SPECIMEN COLLECTED A&P Assessment and plan (1) Congestive heart failure: Telemetry on cardiac stepdown unit Diuresis with IV Lasix, 60 mg IV every 12 hours Fluid restrict Echocardiogram Close follow-up of electrolytes Check TSH Reports to me EF is around 25% per echocardiogram at [place] [facility]. Will ask for records. I suspect he may have atherosclerotic disease causing this but will need to clarify. He does not report any bypass surgery, stent, etc. he has not been told he needs a LifeVest or defibrillator. (2) Anasarca: Patient with significant anasarca Initiate venous duplex of lower extremities Could have some significant arterial disease as well, check ABIs (3) Hypoxia: Presumed hypoxia secondary to congestive heart failure Continue 3 L of oxygen Wean as tolerated (4) Acute kidney injury: Patient with acute kidney injury Suspect cardiorenal Initiate diuresis, investigate further should worsening of creatinine occur Avoid anti-inflammatories Plan Multiple areas of skin breakdown, lower extremity with some eschar, right chowdhury that is black. No overt signs of cellulitis. Also has significant skin breakdown and decubiti on at least the left hip, sacrum. Arterial and venous duplex being performed. Surgery consult for wound care suggestions, possible need for debridement overlying black eschar. Diabetes mellitus. Consistent carb diet. Sliding scale insulin. Multiple other medical problems as outlined in past medical history Full code currently Heparin will be used for DVT prophylaxis. Attestations 2 Medical Necessity Statement*: Will need greater than 2 midnight stay for evaluation and treatment of severe anasarca and heart failure. Diagnoses Congestive heart failure I50.9 Anasarca R60.1 Hypoxia R09.02 Acute kidney injury N17.9 Time Spent (min) 68
[2024-04-24 14:07] LABS: Ferritin 91 ng/mL (30-400); Iron 30 ug/dL (59-158); Percent Saturation 9.8 % (20-50); Thyroid Stimulating Hormone 3.62 uIU/mL (0.27-4.20); Total Iron Binding Capacity 305 mcg/dl; Unsaturated Iron Binding 275 ug/dL (112-347)
--- NOTE | 2024-04-24 14:23 | USCV_ITS ---
Ely Hare Age: 63 Gender: M : 1960 Exam Date: 04/24/2024 15:07 Ordering Phys: Jaret Smith MD Technologist: [place] [facility] [place]: swelling ulcers PROCEDURES: The venous duplex Doppler examination of both lower extremities was performed in the standard fashion. The following venous structures were evaluated: common femoral vein, profunda vein, proximal portion of the greater saphenous vein, superficial femoral vein, and the popliteal vein. In addition, the posterior tibial and peroneal trunk were evaluated. FINDINGS: Normal 2-D Doppler and augmentation and compressibility throughout the lower extremity venous structures. Additional imaging through the proximal calf veins also reveals no thrombus. Limited evaluation of the greater saphenous vein is patent with no thrombus. CONCLUSIONS No evidence of right lower extremity DVT. No evidence of left lower extremity DVT. Fly Welch MD (Electronically Signed) Final Date: 24 April 2024 15:44 S
--- NOTE | 2024-04-24 14:24 | USCV_ITS ---
Ely Hare Age: 63 Gender: M : 1960 Exam Date: 04/24/2024 14:52 Ordering Phys: Jaret Smith MD Technologist: [place] [facility] [place]: chf BP: 141 / 101 HR: 84 Rhythm: Sinus Technical Quality: Adequate MEASUREMENTS (Male / Female) Normal Values 2D ECHO LV Diastolic Diameter PLAX 6.1 cm 4.2 - 5.9 / 3.9 - 5.3 cm IVS Diastolic Thickness 1.3 cm 0.6 - 1.0 / 0.6 - 0.9 cm IVS Systolic Thickness 1.5 cm LVPW Diastolic Thickness 1.4 cm 0.6 - 1.0 / 0.6 - 0.9 cm LVPW Systolic Thickness 1.7 cm LVOT Diameter 2.0 cm LV Ejection Fraction 2D Teich 8.9 % LV Ejection Fraction MOD 4C 35.9 % LV Ejection Fraction MOD 2C 29.4 % LV Ejection Fraction 2C AL 30.9 % LA Diameter 4.6 cm RA Systolic Volume 4C AL 103.2 ml RA Systolic Volume 4C MOD 101.4 ml Aorta at Sinotubular Diameter 4.1 cm M-MODE LA Ao Ratio MM 1.4 AV Cusp Separation MM 1.5 cm DOPPLER AV Peak Velocity 117.0 cm/s LVOT Peak Velocity 54.0 cm/s AV Area Cont Eq vti 1.5 cm squared AV Area Cont Eq pk 1.5 cm squared MV Area PHT 6.5 cm squared Mitral E to A Ratio 3.7 TV Peak Velocity 317.5 cm/s TR Peak Velocity 331.0 cm/s TR Peak Gradient 43.8 mmHg TV Peak E Velocity 95.0 cm/s PV Peak Velocity 95.0 cm/s FINDINGS Left Ventricle Diffuse hypokinesia of the left ventricle with an ejection fraction of around 30%. Mild concentric left-ventricular hypertrophy Right Ventricle Normal LV size and ejection fraction Right Atrium Moderately increased right atrial size. Left Atrium Moderately increased left atrial size. Mitral Valve Moderate eccentric mitral valve regurgitation. Mild prolapse of the posterior mitral leaflet Aortic Valve Thickened aortic valve. Mild aortic valve regurgitation. Tricuspid Valve Mild tricuspid valve regurgitation. Pulmonic Valve Estimated pulmonary artery peak systolic pressure 47 mmHg Pericardium No pericardial effusion. Aorta Normal aortic annulus size. IVC Inferior vena cava not visualized. CONCLUSIONS Diffuse hypokinesia of the left ventricle with an ejection fraction of around 30%. Mild concentric left-ventricular hypertrophy. Moderate biatrial enlargement Moderate eccentric mitral valve regurgitation. Mild prolapse of the posterior mitral leaflet. Thickened aortic valve. Mild aortic valve regurgitation. Mild tricuspid valve regurgitation. Estimated pulmonary artery peak systolic pressure 47 mmHg. There is no pericardial effusion. There are no intracardiac masses. No similar previous studies are available for comparison Dr Marylu Nick MD [facility] (Electronically Signed) Final Date: 25 April 2024 09:30 S
--- NOTE | 2024-04-24 15:26 | P.CONIM_ITS ---
Providers/Reason For Consult 2 Consulting Physician/Specialty*: General Surgery Reason for Consult*: Bilateral lower extremity ulcerations Attending Physician: Jaret Smith MD Primary Care Provider: Itz Pierson MD History of Present Illness History of Present Illness Ely Hare is a 63 year old male with multiple medical comorbidities including congestive heart failure bilateral lower extremity wounds, he appears generally unkept and presents to the hospital with severe edema, anasarca, weakness and multiple wounds in bilateral lower extremities. I was consulted for evaluation of the wounds. Review of Systems 2 General: Reports: 10 or more systems reviewed and unremarkable except in HPI and below Medications/Allergies Home Medications Medication Instructions Recorded Confirmed Last Taken Type docusate sodium 100 mg capsule 100 mg PO BID #14 caps 11/14/22 04/24/24 Unknown Rx (Colace) carvedilol 6.25 mg tablet 6.25 mg PO BID 04/24/24 04/24/24 Unknown History sacubitril 24 mg-valsartan 26 mg 1 tab PO BID 04/24/24 04/24/24 Unknown History tablet (Entresto) Allergies Allergy/AdvReac Type Severity Reaction Status Date / Time No Known Allergies Allergy Verified 01/22/24 17:16 PFSH Acute 2 PFSH: Medical History Congestive heart failure Psychiatric care Gout Immunization counseling Seropositive rheumatoid arthritis of multiple sites Hypertension Surgical History History of hernia repair Family History Mother Cancer breast Father Cancer non hodgkins lymphoma Other CAD (coronary artery disease) Diabetes Family history of premature coronary artery disease Denies family history of Rheumatoid arthritis Lupus Hyperlipidemia Chronic kidney disease (CKD) Lung disease Hypertension Stroke Social History Smoking and tobacco/nicotine status: never used tobacco/nicotine Alcohol intake: never Substance/Drug Use: never Lives independently: Yes Marital status: Single Number of children: 1 Current occupational status: retired Special jennifer needs: No Agree to transfusion: Yes Vitals/I&O/Wt Last Vital Signs Temp 97.9 F 04/24/24 09:18 Pulse 83 04/24/24 15:05 Resp 13 12/18/24 15:05 BP 138/100 04/24/24 15:05 Pulse Ox 99 04/24/24 15:05 O2 Del Method Nasal Cannula 04/24/24 14:50 O2 Flow Rate 4 04/24/24 14:50 Weight last 48 hrs Weight 250 lb Physical Exam 2 Extremity: NARRATIVE EXTREMITY EXAM: On bilateral lower extremity there were several areas of ulceration the most important 1 is send the anterior aspect of the right lower extremity at the level of the chowdhury is encompasses an area of about 10 x 3 cm has thick exudate on top with the necrotic eschar covering partially the wound. Urinary Catheter Management: Marsh: Cath Placed During This Visit: yes Urinary Catheter Date of Insertion: 04/24/24 Data 04/24/24 08:45 04/24/24 08:45 Micro: Microbiology 04/24/24 11:02 Blood Culture - Preliminary Blood SPECIMEN COLLECTED 04/24/24 11:05 Blood Culture - Preliminary Blood SPECIMEN COLLECTED A&P Assessment and plan (1) Bilateral cellulitis of lower leg: (2) Open wound of both lower extremities: Plan Patient has multiple wounds in bilateral lower extremities that will require surgical debridement. I agree with additional therapy by medical team with diuresis and antibiotic therapy for possible cellulitis. The plan is to proceed to the OR for debridement once patient has been diuresed and is able to tolerate being in a flat position. Will plan for debridement of bilateral lower extremity wounds I discussed all risk and benefits including the risk of bleeding, infection, worsening of the wounds, poor wound healing, need for amputation, limb loss, injury to surrounding structures. Patient shows understanding agrees to proceed Coding Level of Care Code Acute Code for Chg Fwd Diagnoses Bilateral cellulitis of lower leg L03.116; L03.115 Open wound of both lower extremities S81.801A; S81.802A
--- NOTE | 2024-04-24 15:38 | PC.NURSE ---
Patient transferred from ED to CSU via a bed at 1530.
[2024-04-24] MEDS: heparin 5,000 unit/mL INJ 1 mL 5000 UNIT SUBCUT (16:38)
[2024-04-24 16:51] LABS: Glucose Point of Care 79 mg/dL (70-110)
[2024-04-24] MEDS: carvedilol 6.25 mg Tablet PO (17:45)
[2024-04-24 21:21] LABS: Glucose Point of Care 142 mg/dL (70-110)
[2024-04-24] MEDS: FUROsemide 10 mg/mL SDV 10mL 60 MG IVP (22:17)
[2024-04-24] MEDS: insulin lispro 100 unit/1 mL SUBCUT (22:17)
[2024-04-25] VITALS (65 sets, daily range): BP systolic 79–127; BP diastolic 52–88; PULSE 0–88; RESP 3–29; TEMP 36.3–37; O2SAT 85–98
[2024-04-25] MEDS: hyDROXYzine 25 mg Capsule PO (01:34)
[2024-04-25] MEDS: heparin 5,000 unit/mL INJ 1 mL 5000 UNIT SUBCUT ×2 (03:44→15:41)
[2024-04-25 05:35] LABS: Basophils # 0.1 10^3/uL (0.0-0.1); Basophils % 0.6 %; Eosinophils # 0.3 10^3/uL (0.0-0.8); Eosinophils % 2.3 %; Hematocrit 40.9 % (37-53); Lymphocytes # 1.1 10^3/uL (0.8-4.8); Lymphocytes % 9.3 %; Mean Corpuscular HGB Conc 28.1 g/dL (30-55); Mean Corpuscular Hemoglobin 22.7 pg (27-33); Mean Corpuscular Volume 80.8 fl (82-101); Mean Platelet Volume 10.4 fL (7.4-10.4); Monocytes # 1.2 10^3/uL (0.2-0.9); Monocytes % 9.8 %; Neutrophils # 9.32 10^3/uL (1.8-7.7); Neutrophils % 77.6 %; Nucleated Red Blood Cells % 0 %; Platelet Count 341 10^3/cmm (157-399); Red Blood Count 5.06 10^6/uL (3.85-5.65); Red Cell Distribution Width 19.4 % (12.1-15.1); White Blood Count 12.02 10^3/uL (3.29-11.43)
[2024-04-25 06:03] LABS: Alanine Aminotransferase 28 U/L (0-41); Albumin Level 3.2 g/dL (3.5-5.2); Alkaline Phosphatase 158 U/L (40-130); Anion Gap 15.1 (5-19); Aspartate Amino Transferase 28 U/L (0-40); Blood Urea Nitrogen 31 mg/dL (8-23); Calcium 8.7 mg/dL (8.5-10.5); Carbon Dioxide 25 mmol/L (22-29); Chloride 108 mmol/L (98-107); Creatinine Clr Calc Pharmacy 55.3245; Globulin 2.8 g/dL (1.3-4.6); Glomerular Filtration Rate 40.8 mL/min (90-130); Glucose 96 mg/dL (65-115); Osmolality Calculated 304 mOsm/kg (285-295); Potassium 4.1 mmol/L (3.5-5.1); Sodium 144 mmol/L (136-145); Total Bilirubin 1.4 mg/dL (0.15-1.2)
[2024-04-25 06:36] LABS: Glucose Point of Care 95 mg/dL (70-110)
[2024-04-25] MEDS: acetaminophen 325 mg Tablet 650 MG PO (07:45)
[2024-04-25] MEDS: docusate sodium 100 mg Capsule PO ×2 (07:46→18:21)
[2024-04-25] MEDS: carvedilol 6.25 mg Tablet PO ×2 (07:48→18:21)
--- NOTE | 2024-04-25 08:26 | P.PN_ITS ---
Subjective 2 Subjective: Is about the same. Still significantly swollen. No significant diuresis yet. No chest pain but is having some leg pain. Medications: Reviewed: Yes Vitals/I&O/Wt Last Vital Signs Temp 97.5 F L 04/25/24 07:27 Pulse 78 04/25/24 07:44 Resp 20 H 04/25/24 07:44 BP 115/84 04/25/24 07:27 Pulse Ox 98 04/25/24 07:44 O2 Del Method Nasal Cannula 04/25/24 07:44 O2 Flow Rate 6 04/25/24 07:44 FiO2 40 04/25/24 06:05 04/24/24 04/25/24 04/25/24 22:59 06:59 14:59 Intake Total 1260 / 1260 460 / 1720 Output Total 1100 / 1100 600 / 1700 Balance 160 / 160 -140 / 20 Weight last 48 hrs Weight 123.604 kg Weight 77.564 kg Weight 113.398 kg Physical Exam 2 Narrative: General Exam, no distress Neck is supple no lymphadenopathy thyromegaly Cardiovascular regular rate and rhythm with a 2/6 systolic murmur Lungs diminished breath sounds bilaterally. No wheezes Abdomen positive bowel sounds. Indurated below the umbilicus. Obvious soft tissue edema. exam demonstrates swollen scrotum, Marsh noted Extremities show 4+ edema all the way to his abdomen and pannus. Multiple sores including 1 with a black eschar on the right chowdhury. They are on the posterior and anterior of his calves. Some irritation of his heels. On his buttocks there is some redness, excoriations, and at least a left hip decub as well with a stage II. None of these appear severely infected. No change from yesterday Urinary Catheter Management: Marsh: Cath Placed During This Visit: yes Reason for Continuing Indwelling Catheter: Other Urinary Catheter Date of Insertion: 04/24/24 Data 04/25/24 04:55 04/25/24 04:55 Micro: Microbiology 04/24/24 11:02 Blood Culture - Preliminary Blood SPECIMEN COLLECTED 04/24/24 11:05 Blood Culture - Preliminary Blood SPECIMEN COLLECTED A&P Assessment and plan (1) Congestive heart failure: Telemetry on cardiac stepdown unit Consistent with acute systolic heart failure superimposed on chronic systolic heart failure Increase Lasix to 80 mg every 12 hours Fluid restrict Echocardiogram pending Close follow-up of electrolytes TSH was checked and normal Reports to me EF is around 25% per echocardiogram at [place] around [place]y. Will ask for records. I suspect he may have atherosclerotic disease causing this but will need to clarify. He does not report any bypass surgery, stent, etc. he has not been told he needs a LifeVest or defibrillator. Awaiting records (2) Anasarca: Patient with significant anasarca Initiate venous duplex of lower extremities. Venous duplex was negative Could have some significant arterial disease as well, check ABIs. Arterial duplex was negative (3) Hypoxia: Presumed hypoxia secondary to congestive heart failure Currently on 6 L of oxygen Wean as tolerated (4) Acute kidney injury: Patient with acute kidney injury Suspect cardiorenal No overall change currently increase diuresis, continue to monitor Avoid anti-inflammatories Plan Multiple areas of skin breakdown, lower extremity with some eschar, right chowdhury that is black. No overt signs of cellulitis. Also has significant skin breakdown and decubiti on at least the left hip, sacrum. Arterial and venous duplex being performed. Surgery consult for wound care suggestions, possible need for debridement overlying black eschar. Appreciate surgical consult. Possible debridement tomorrow. Lower extremity lesions look a little worse currently. Add linezolid. Iron deficient. Iron transfusion today. Diabetes mellitus. Consistent carb diet. Sliding scale insulin. Multiple other medical problems as outlined in past medical history Full code currently Heparin will be used for DVT prophylaxis. Attestations 2 Medical Necessity Statement*: Needs continued hospital stay for diuresis secondary to acute systolic heart failure Diagnoses Congestive heart failure I50.9 Anasarca R60.1 Hypoxia R09.02 Acute kidney injury N17.9 Time Spent (min) 22
[2024-04-25 08:52] LABS: Procalcitonin 0.09 ng/mL (0-0.5)
[2024-04-25] MEDS: oxyCODONE 5 mg IR Tab/Cap PO (09:25)
[2024-04-25] MEDS: FUROsemide 10 mg/mL SDV 10mL 80 MG IVP (10:13)
[2024-04-25] MEDS: linezolid premix 600 MG/300 ML PREMIX 300 MG IV ×2 (10:16→20:56)
[2024-04-25] MEDS: iron sucrose 200 MG in sodium chloride 0.9% (100 ml) 100 ML 220 MG IV (11:20)
[2024-04-25 11:30] LABS: Glucose Point of Care 206 mg/dL (70-110)
--- NOTE | 2024-04-25 13:21 | PM.CONSULT ---
Documented by User: Marylu Nick MD 04/25/24 16:35 Providers/Reason For Consult Attending Physician: Jaret Smith MD Primary Care Provider: Itz Pierson MD History of Present Illness History of Present Illness Ely Hare is a 63 year old male Medications/Allergies Home Medications Medication Instructions Recorded Confirmed Last Taken Type docusate sodium 100 mg capsule 100 mg PO BID #14 caps 11/14/22 04/24/24 Unknown Rx (Colace) carvedilol 6.25 mg tablet 6.25 mg PO BID 04/24/24 04/24/24 Unknown History sacubitril 24 mg-valsartan 26 mg 1 tab PO BID 04/24/24 04/24/24 Unknown History tablet (Entresto) Allergies Allergy/AdvReac Type Severity Reaction Status Date / Time No Known Allergies Allergy Verified 01/22/24 17:16 Current Medications Generic Name Dose Route Start Last Admin Trade Name Freq PRN Reason Stop Dose Admin Acetaminophen 650 mg 04/24/24 15:37 04/25/24 07:45 Acetaminophen 325 Mg Tablet PO 650 mg Q6H PRN Administration Mild/Mod Pain Or Temp >/= 101 Carvedilol 6.25 mg 04/24/24 18:00 04/25/24 07:48 Carvedilol 6.25 Mg Tablet PO 6.25 mg BID AMBER Administration Docusate Sodium 100 mg 04/24/24 18:00 04/25/24 07:46 Docusate Sodium 100 Mg Capsule PO 100 mg BID AMBER Administration Furosemide 80 mg 04/25/24 07:41 04/25/24 10:13 Furosemide 10 Mg/Ml Sdv 10ml IVP 80 mg Q12H AMBER Administration Heparin Sodium (Porcine) 5,000 unit 04/24/24 15:37 04/25/24 03:44 Heparin 5,000 Unit/Ml Inj 1 Ml SUBCUT 5,000 unit Q12H AMBER Administration Linezolid 600 mg in 300 mls @ 300 mls/hr 04/25/24 08:00 04/25/24 11:21 Zyvox Premix IV Infused Q12H AMBER Infusion Protocol Insulin Human Lispro 0 unit 04/24/24 18:00 04/25/24 12:32 Insulin Lispro 100 Unit/1 Ml SUBCUT Not Given WM&BEDTIME AMBER Protocol Oxycodone HCl 5 mg 04/25/24 08:27 04/25/24 09:25 Oxycodone 5 Mg Ir Tab/Cap PO 5 mg Q6H PRN Administration MODERATE PAIN PFSH Acute PFSH: Medical History Congestive heart failure Psychiatric care Gout Immunization counseling Seropositive rheumatoid arthritis of multiple sites Hypertension Surgical History History of hernia repair Family History Mother Cancer breast Father Cancer non hodgkins lymphoma Other CAD (coronary artery disease) Diabetes Family history of premature coronary artery disease Denies family history of Rheumatoid arthritis Lupus Hyperlipidemia Chronic kidney disease (CKD) Lung disease Hypertension Stroke Social History Smoking and tobacco/nicotine status: never used tobacco/nicotine Alcohol intake: never Substance/Drug Use: never Lives independently: Yes Marital status: Single Number of children: 1 Current occupational status: retired Special jennifer needs: No Agree to transfusion: Yes Vitals/I&O/Wt Last Vital Signs Temp 97.3 F L 04/25/24 12:00 Pulse 82 04/25/24 12:00 Resp 28 H 04/25/24 12:00 BP 110/83 04/25/24 12:00 Pulse Ox 93 04/25/24 12:00 O2 Del Method Nasal Cannula 04/25/24 12:00 O2 Flow Rate 4 04/25/24 12:00 FiO2 40 04/25/24 06:05 04/24/24 04/25/24 04/25/24 22:59 06:59 14:59 Intake Total 1260 / 1260 460 / 1720 650 / 650 Output Total 1100 / 1100 600 / 1700 Balance 160 / 160 -140 / 20 650 / 650 Weight last 48 hrs Weight 272 lb 8 oz Weight 171 lb Weight 250 lb Physical Exam Narrative: GENERAL: The patient is alert and oriented times three. Not in any acute distress. HEENT: No significant pallor, icterus or lymphadenopathy.Oral cavity: There are no mucous membrane lesions. NECK: Trachea appears to be central. No masses noted. No JVD or thyromegaly appreciated. RESPIRATORY: Chest is symmetrical. No intercostals muscle retraction or any accessory muscle activation. There is no chest wall tenderness. Breath sounds are heard bilaterally. No rales or rhonchi heard. No evidence of any consolidation. BREASTS: Deferred. HEART: The heart sounds are normal. No S3 or S4. Short systolic murmur in the left sternal border. No diastolic murmurs. No pericardial rub ABDOMEN: No vessel pulsations or distention. No tenderness. No organomegaly appreciated. Bowel sounds are normally heard. : Deferred. RECTAL: Deferred. LYMPHATIC: No lymphadenopathy noted in the neck. EXTREMITIES: 2-3+ edema both lower extremities, extensive ulceration on both leg and they are bandaged MUSCULOSKELETAL: No acute joint deformities or swelling SKIN: There are no significant rashes or ecchymosis NEUROPSYCHIATRIC: The patient is alert and oriented x3. No focal motor deficits. Urinary Catheter Management: Marsh: Cath Placed During This Visit: yes Reason for Continuing Indwelling Catheter: Other Urinary Catheter Date of Insertion: 04/24/24 Data 04/25/24 04:55 04/25/24 04:55 Other Labs: Laboratory Last Values WBC 12.02 10^3/uL (3.29-11.43) H 04/25/24 04:55 RBC 5.06 10^6/uL (3.85-5.65) 04/25/24 04:55 Hgb 11.50 g/dL (11.27-16.99) 04/25/24 04:55 Hct 40.9 % (37-53) 04/25/24 04:55 MCV 80.8 fl (82-101) L 04/25/24 04:55 MCH 22.7 pg (27-33) L 04/25/24 04:55 MCHC 28.1 g/dL (30-55) L 04/25/24 04:55 RDW 19.4 % (12.1-15.1) H 04/25/24 04:55 Plt Count 341 10^3/cmm (157-399) 04/25/24 04:55 MPV 10.4 fL (7.4-10.4) 04/25/24 04:55 Neut % (Auto) 77.6 % 04/25/24 04:55 Lymph % (Auto) 9.3 % 04/25/24 04:55 Talbot % (Auto) 9.8 % 04/25/24 04:55 Eos % (Auto) 2.3 % 04/25/24 04:55 Baso % (Auto) 0.6 % 04/25/24 04:55 Neut # (Auto) 9.32 10^3/uL (1.8-7.7) H 04/25/24 04:55 Lymph # (Auto) 1.1 10^3/uL (0.8-4.8) 04/25/24 04:55 Talbot # (Auto) 1.2 10^3/uL (0.2-0.9) H 04/25/24 04:55 Eos # (Auto) 0.3 10^3/uL (0.0-0.8) 04/25/24 04:55 Baso # (Auto) 0.1 10^3/uL (0.0-0.1) 04/25/24 04:55 Nucleated RBC % (auto) 0 % 04/25/24 04:55 Nucleated RBCs # 0.0 /100WBC 04/25/24 04:55 Specimen Type Arterial 04/25/24 14:35 Sample Site Brachial, right 04/25/24 14:35 ABG pH 7.28 (7.35-7.45) L 04/25/24 14:35 ABG pCO2 58.1 mmHg (35-45) H 04/25/24 14:35 ABG pO2 139.0 mmHg (80.0-100.0) H 04/25/24 14:35 ABG PO2/FiO2 Ratio 347 04/25/24 14:35 ABG HCO3 27.5 mmol/L (22-26) H 04/25/24 14:35 ABG O2 Saturation > 99.1 04/25/24 14:35 ABG Base Excess -0.1 mmol/L (-2.0-2.0) 04/25/24 14:35 Shawn Test Pos 04/25/24 14:35 A-a O2 Gradient 9.8 mmHg (5-10) 04/25/24 14:35 Hematocrit 36.4 % (42-52) L 04/25/24 14:35 Hgb O2 Saturation 97.8 % (95-100) 04/25/24 14:35 Carboxyhemoglobin 1.4 %THgb (0.4-20.1) 04/25/24 14:35 Methemoglobin 0.3 % (0.4-1.5) L 04/25/24 14:35 Total Hemoglobin 11.9 g/dL (14-18) L 04/25/24 14:35 Sodium 141.0 mmol/L (131-143) 04/25/24 14:35 Potassium 3.9 mmol/L (3.5-5.0) 04/25/24 14:35 Glucose 165.0 mg/dL (70-115) H 04/25/24 14:35 Ionized Calcium 1.2 mmol/L (1.1-1.4) 04/25/24 14:35 O2 Delivery Device Bipap 04/25/24 14:35 O2 Liters/Min 3.0 % 04/24/24 09:48 FiO2 40.0 % 04/25/24 14:35 In Flight Refueling Operator ID Monro 04/25/24 14:35 Sodium 144 mmol/L (136-145) 04/25/24 04:55 Potassium 4.1 mmol/L (3.5-5.1) 04/25/24 04:55 Chloride 108 mmol/L (98-107) H 04/25/24 04:55 Carbon Dioxide 25 mmol/L (22-29) 04/25/24 04:55 Anion Gap 15.1 (5-19) 04/25/24 04:55 BUN 31 mg/dL (8-23) H 04/25/24 04:55 Creatinine 1.7 mg/dL (0.7-1.2) H 04/25/24 04:55 GFR Calculation 40.8 mL/min (90-130) L 04/25/24 04:55 Glucose 96 mg/dL (65-115) 04/25/24 04:55 POC Glucose 206 mg/dL (70-110) H 04/25/24 11:16 Calculated Osmolality 304 mOsm/kg (285-295) H 04/25/24 04:55 Lactic Acid 2.2 mmol/L (0.5-2.2) 04/24/24 08:45 Lactic Acid (Sepsis) 1.5 mmol/L (0.5-2.2) 04/24/24 13:07 Calcium 8.7 mg/dL (8.5-10.5) 04/25/24 04:55 Magnesium 2.0 mg/dL (1.7-2.3) 04/25/24 04:55 Iron 30 ug/dL (59-158) L 04/24/24 08:45 TIBC 305 mcg/dl 04/24/24 08:45 % Saturation 9.8 % (20-50) L 04/24/24 08:45 Unsat Iron Binding 275 ug/dL (112-347) 04/24/24 08:45 Ferritin 91 ng/mL (30-400) 04/24/24 08:45 Total Bilirubin 1.4 mg/dL (0.15-1.2) H 04/25/24 04:55 AST 28 U/L (0-40) 04/25/24 04:55 ALT 28 U/L (0-41) 04/25/24 04:55 Alkaline Phosphatase 158 U/L (40-130) H 04/25/24 04:55 Creatine Kinase 257 U/L (39-308) 04/24/24 08:45 Total Protein 6.0 g/dL (6.6-8.7) L 04/25/24 04:55 Albumin 3.2 g/dL (3.5-5.2) L 04/25/24 04:55 Globulin 2.8 g/dL (1.3-4.6) 04/25/24 04:55 Lipase 91 U/L (13-60) H 04/24/24 08:45 Procalcitonin 0.09 ng/mL (0-0.5) 04/25/24 04:55 TSH 3.62 uIU/mL (0.27-4.20) 04/24/24 08:45 Urine Color Dark yellow (Yellow) A 04/24/24 12:55 Urine Appearance Cloudy (CLEAR) A 04/24/24 12:55 Urine pH 5.5 (5-7) 04/24/24 12:55 Ur Specific Braxton 1.030 (1.005-1.030) 04/24/24 12:55 Urine Protein 3+ (Negative) A 04/24/24 12:55 Urine Glucose (UA) Negative (Normal) 04/24/24 12:55 Urine Ketones Negative (Negative) 04/24/24 12:55 Urine Blood Negative (Negative) 04/24/24 12:55 Urine Nitrate Negative (Negative) 04/24/24 12:55 Urine Bilirubin 1+ (Negative) H 04/24/24 12:55 Urine Urobilinogen 1.0 mg/dL (Negative) 04/24/24 12:55 Ur Leukocyte Esterase Trace (Negative) A 04/24/24 12:55 Urine RBC 0-2 /hpf (0-2) 04/24/24 12:55 Urine WBC 0-5 /hpf (0-5) 04/24/24 12:55 Ur Squamous Epith Cells 0-5 /hpf (0-5) 04/24/24 12:55 Calcium Oxalate Crystal 15-25 /hpf H 04/24/24 12:55 Amorphous Sediment Trace /hpf 04/24/24 12:55 Urine Bacteria None seen /hpf (NONE) 04/24/24 12:55 Hyaline Casts 25.23 /lpf 04/24/24 12:55 Fine Granular Casts 0-4 /lpf H 04/24/24 12:55 Urine Sperm 1+ /hpf 04/24/24 12:55 Micro: Microbiology 04/24/24 11:05 Blood Culture - Preliminary Blood NEGATIVE TO DATE 04/24/24 11:02 Blood Culture - Preliminary Blood NEGATIVE TO DATE Other data: Echocardiogram from yesterday Diffuse hypokinesia of the left ventricle with an ejection fraction of around 30%. Mild concentric left-ventricular hypertrophy. Moderate biatrial enlargement Moderate eccentric mitral valve regurgitation. Mild prolapse of the posterior mitral leaflet. Thickened aortic valve. Mild aortic valve regurgitation. Mild tricuspid valve regurgitation. Estimated pulmonary artery peak systolic pressure 47 mmHg. There is no pericardial effusion. There are no intracardiac masses. No similar previous studies are available for comparison A&P Assessment and plan (1) Congestive heart failure: Qualifiers: Heart failure chronicity: acute on chronic Heart failure type: systolic Qualified Code(s): I50.23 - Acute on chronic systolic (congestive) heart failure (2) Hypertension: Qualifiers: Hypertension type: primary hypertension Qualified Code(s): I10 - Essential (primary) hypertension (3) Acute kidney injury: (4) Anasarca: (5) Type 2 diabetes mellitus: Qualifiers: Diabetes mellitus complication detail: with peripheral angiopathy without gangrene Diabetes mellitus complication status: with circulatory complication Diabetes mellitus penitentiary insulin use: without penitentiary use Qualified Code(s): E11.51 - Type 2 diabetes mellitus with diabetic peripheral angiopathy without gangrene (6) Bilateral leg ulcer: Patient apparently had a venous Doppler examination and arterial Doppler examination. Was found to have abnormal ABIs bilaterally. No evidence of DVT by the venous oral examination. Qualifiers: Non-pressure ulcer stage: unspecified non-pressure ulcer stage Qualified Code(s): L97.919 - Non-pressure chronic ulcer of unspecified part of right lower leg with unspecified severity; L97.929 - Non-pressure chronic ulcer of unspecified part of left lower leg with unspecified severity Plan The plan for this 63-year-old gentleman is to investigate the cause of his systolic congestive heart failure. Will need to get records from [facility] to make further recommendations. At this time patient will need to be diuresed. Will need to closely watch kidney function. Patient may need to have the heart failure and investigated prior to surgical wound debridement. [facility] Coding Level of Care Code 12962 Diagnoses Acute on chronic systolic congestive heart failure I50.23 Heart failure chronicity: acute on chronic Heart failure type: systolic Primary hypertension I10 Hypertension type: primary hypertension Acute kidney injury N17.9 Anasarca R60.1 Type 2 diabetes mellitus with diabetic peripheral angiopathy without gangrene, without long-term current use of insulin E11.51 Diabetes mellitus complication detail: with peripheral angiopathy without gangrene Diabetes mellitus complication status: with circulatory complication Diabetes mellitus penitentiary insulin use: without penitentiary use Ulcers of both lower extremities, unspecified ulcer stage L97.919; L97.929 Non-pressure ulcer stage: unspecified non-pressure ulcer stage Documented by User: Elizabeth Rosario NP 04/25/24 15:37 Providers/Reason For Consult Consulting Physician/Specialty*: Marylu Nick MD Reason for Consult*: Congestive heart failure History of Present Illness History of Present Illness Ely Hare is a 63 year old male who came into the ER yesterday with a chief complaint of worsening lower extremity wounds and increased shortness of breath. He states he gets short of breath with little activity. He states he was at [facility] recently where he was diuresed and sent home after about 5 days. He took Entresto at home and arvedilol 6.25 twice daily. He states at [place] he was told his ejection fraction was low. He denies having history of an angiogram. Denies any significant cardiac history. States he has never been a smoker. Denies diabetes although A1C in 2022 was 7. Currently, he has an oxygen saturation of 96% on 4 L nasal cannula. He has a significant amount of lower extremity edema. Lungs are clear throughout. He states his breathing has improved but he is still short of breath when he lies flat. He had a venous ultrasound as well as an arterial duplex that was negative for significant peripheral arterial disease. Vital signs are stable at this time. An echo was done during this admission that showed an ejection fraction of 30% with diffuse hypokinesia of the left ventricle. Currently patient is being placed on a lasix drip due to lack of response to oral lasix. Creatinine is elevated at 1.7. Medications/Allergies Home Medications Medication Instructions Recorded Confirmed Last Taken Type docusate sodium 100 mg capsule 100 mg PO BID #14 caps 11/14/22 04/24/24 Unknown Rx (Colace) carvedilol 6.25 mg tablet 6.25 mg PO BID 04/24/24 04/24/24 Unknown History sacubitril 24 mg-valsartan 26 mg 1 tab PO BID 04/24/24 04/24/24 Unknown History tablet (Entresto) Allergies Allergy/AdvReac Type Severity Reaction Status Date / Time No Known Allergies Allergy Verified 01/22/24 17:16 PFSH Acute PFSH: Medical History Congestive heart failure Psychiatric care Gout Immunization counseling Seropositive rheumatoid arthritis of multiple sites Hypertension Surgical History History of hernia repair Family History Mother Cancer breast Father Cancer non hodgkins lymphoma Other CAD (coronary artery disease) Diabetes Family history of premature coronary artery disease Denies family history of Rheumatoid arthritis Lupus Hyperlipidemia Chronic kidney disease (CKD) Lung disease Hypertension Stroke Social History Smoking and tobacco/nicotine status: never used tobacco/nicotine Alcohol intake: never Substance/Drug Use: never Lives independently: Yes Marital status: Single Number of children: 1 Current occupational status: retired Special jennifer needs: No Agree to transfusion: Yes Physical Exam Urinary Catheter Management: Marsh: Cath Placed During This Visit: yes Data 04/25/24 04:55 04/25/24 04:55 Other data: Venous Duplex CONCLUSIONS No evidence of right lower extremity DVT. No evidence of left lower extremity DVT. Arterial Duplex CONCLUSIONS 1. Normal resting ABIs bilaterally 2. No unstable plaques or lesions were noted 3. No significant arterial obstruction, based on the above findings Echocardiogram from yesterday Diffuse hypokinesia of the left ventricle with an ejection fraction of around 30%. Mild concentric left-ventricular hypertrophy. Moderate biatrial enlargement Moderate eccentric mitral valve regurgitation. Mild prolapse of the posterior mitral leaflet. Thickened aortic valve. Mild aortic valve regurgitation. Mild tricuspid valve regurgitation. Estimated pulmonary artery peak systolic pressure 47 mmHg. There is no pericardial effusion. There are no intracardiac masses. No similar previous studies are available for comparison A&P Assessment and plan (1) Congestive heart failure: EF severely diminished at 30% with diffuse hypokinesis of the left ventricle. At this time will need to continue to be diuresed. Patient is getting Lasix drip. Will avoid starting Entresto again at this time due to acute kidney injury. Agree with carvedilol twice daily. We will need to get records from [place] to see what interventions were performed and what patient's previous echo showed. Qualifiers: Heart failure chronicity: acute on chronic Heart failure type: systolic Qualified Code(s): I50.23 - Acute on chronic systolic (congestive) heart failure (2) Hypertension: Well-controlled at this time. May continue current medication. Qualifiers: Hypertension type: primary hypertension Qualified Code(s): I10 - Essential (primary) hypertension (3) Acute kidney injury: Per hospitalist team. Will hold Entresto at this time. Will need to carefully diurese and monitor creatinine. (4) Anasarca: Will need continued diuresis. (5) Type 2 diabetes mellitus: Patient may need to be started on SGLT2 inhibitor such as Farxiga or Jardiance in the future. Qualifiers: Diabetes mellitus complication detail: with peripheral angiopathy without gangrene Diabetes mellitus complication status: with circulatory complication Diabetes mellitus penitentiary insulin use: without intermediate card tender use Qualified Code(s): E11.51 - Type 2 diabetes mellitus with diabetic peripheral angiopathy without gangrene (6) Bilateral leg ulcer: Qualifiers: Non-pressure ulcer stage: unspecified non-pressure ulcer stage Qualified Code(s): L97.919 - Non-pressure chronic ulcer of unspecified part of right lower leg with unspecified severity; L97.929 - Non-pressure chronic ulcer of unspecified part of left lower leg with unspecified severity Plan The plan for this 63-year-old gentleman is to investigate the cause of his systolic congestive heart failure. Will need to get records from [facility] to make further recommendations. At this time patient will need to be diuresed. Will need to closely watch kidney function. Patient may need to have the heart failure and investigated prior to surgical wound debridement. Coding Level of Care Code 30867 Diagnoses Acute on chronic systolic congestive heart failure I50.23 Heart failure chronicity: acute on chronic Heart failure type: systolic Primary hypertension I10 Hypertension type: primary hypertension Acute kidney injury N17.9 Anasarca R60.1 Type 2 diabetes mellitus with diabetic peripheral angiopathy without gangrene, without long-term current use of insulin E11.51 Diabetes mellitus complication detail: with peripheral angiopathy without gangrene Diabetes mellitus complication status: with circulatory complication Diabetes mellitus penitentiary insulin use: without intermediate card tender use Ulcers of both lower extremities, unspecified ulcer stage L97.919; L97.929 Non-pressure ulcer stage: unspecified non-pressure ulcer stage
[2024-04-25 14:47] LABS: ABG PCO2 58.1 mmHg (35-45); ABG PH Result 7.28 (7.35-7.45); Alveolar-Arterial Oxygen Gradi 9.8 mmHg (5-10); Arterial Blood Gas Hematocrit 36.4 % (42-52); Base Excess ABG -0.1 mmol/L (-2.0-2.0); Blood Gas Allen Test Pos; Blood Gas Operator Identificat MONRO; Blood Gas Sample Site Brachial, right; Blood Gas Sample Type Arterial; Carboxyhemoglobin 1.4 %THgb (0.4-20.1); HCO3 ABG 27.5 mmol/L (22-26); HGB O2 Sat 97.8 % (95-100); Ionized Calcium Level - ABG 1.2 mmol/L (1.1-1.4); Methemoglobin 0.3 % (0.4-1.5); Oxygen Device BIPAP; Oxygen Saturation ABG > 99.1; PO2 FiO2 Ratio Arterial Blood 347; Potassium Level - ABG 3.9 mmol/L (3.5-5.0); Total Hemoglobin 11.9 g/dL (14-18)
[2024-04-25] MEDS: metOLazone 5 MG Tablet PO (15:45)
[2024-04-25] MEDS: FUROsemide 100 MG in sodium chloride 0.9% 40 ML IV (15:57)
[2024-04-25 18:12] LABS: Glucose Point of Care 118 mg/dL (70-110)
[2024-04-25 18:18] LABS: Glucose Point of Care 142 mg/dL (70-110)
[2024-04-25 21:16] LABS: Glucose Point of Care 238 mg/dL (70-110)
[2024-04-25] MEDS: insulin lispro 100 unit/1 mL SUBCUT (21:30)
[2024-04-25] MEDS: FUROsemide 200 MG in sodium chloride 0.9% (100 ml) 80 ML 10 MG IV (21:36)
--- NOTE | 2024-04-25 21:42 | PC.NURSE ---
Lasix drip running at 20 mg/hr at shift change. Changed in MAR to reflect current rate. Urine output 1000 ml for 2 hours.
[2024-04-26] VITALS (37 sets, daily range): BP systolic 83–147; BP diastolic 56–103; PULSE 55–103; RESP 11–32; TEMP 36.2–36.6; O2SAT 90–96; BMI 41.2
[2024-04-26 01:59] LABS: Anion Gap 14.9 (5-19); Blood Urea Nitrogen 32 mg/dL (8-23); Calcium 8.5 mg/dL (8.5-10.5); Carbon Dioxide 29 mmol/L (22-29); Chloride 103 mmol/L (98-107); Creatinine Clr Calc Pharmacy 49.5009; Glomerular Filtration Rate 35.9 mL/min (90-130); Glucose 122 mg/dL (65-115); Magnesium 1.9 mg/dL (1.7-2.3); Osmolality Calculated 304 mOsm/kg (285-295); Potassium 3.9 mmol/L (3.5-5.1); Sodium 143 mmol/L (136-145)
[2024-04-26 02:08] LABS: Glucose Point of Care 160 mg/dL (70-110)
--- NOTE | 2024-04-26 03:17 | ECG_ITS ---
[email or web address] Date: 2024-04-26 Pat Name: Ely Hare Department: Room: [facility] Gender: Male Flange Turner: : 1960 Requested By: Ashish Ortiz Order Number: [id number] Fabiano MD: Marylu Nick M.D. Measurements Intervals [place] Rate: 73 P: 13 WV: 147 QRS: 15 QRSD: 103 T: 128 QT: 415 QTc: 459 Interpretive Statements SINUS RHYTHM LOW QRS VOLTAGE IN EXTREMITY LEADS [QRS DEFLECTION < 0.5 mV IN LIMB LEADS] ABNORMAL QRS-T ANGLE [QRS-T AXIS DIFFERENCE > 60] Compared to ECG 04/24/2024 10:21:57 Low QRS voltage now present Electronically Signed On 04-26-2024 19:43:53 [employer] CLEANER OPERATOR by Marylu Nick M.D. [id number]
--- NOTE | 2024-04-26 03:37 | PC.NURSE ---
Addendum entered by Lamar Ohara RN 04/26/24 03:46: Verbal order for dopamine drip. Original Note: Dr. Ortiz at bedside. Hold current dose of heparin.
[2024-04-26] MEDS: DOPamine drip 400 MG/250 ML PREMIX 23.18 MG IV (03:41)
[2024-04-26 03:48] LABS: ABG PCO2 51.9 mmHg (35-45); ABG PH Result 7.35 (7.35-7.45); Arterial Blood Gas Hematocrit 35.9 % (42-52); Base Excess ABG 2.1 mmol/L (-2.0-2.0); Blood Gas Allen Test Pos; Blood Gas Operator Identificat JDB; Blood Gas Sample Site Radial, right; Blood Gas Sample Type Arterial; Carboxyhemoglobin 1.5 %THgb (0.4-20.1); HCO3 ABG 28.6 mmol/L (22-26); HGB O2 Sat 96.7 % (95-100); Ionized Calcium Level - ABG 1.2 mmol/L (1.1-1.4); Methemoglobin 0.3 % (0.4-1.5); Oxygen Device BIPAP; Oxygen Saturation ABG 98.5; PO2 FiO2 Ratio Arterial Blood 350; Potassium Level - ABG 3.3 mmol/L (3.5-5.0); Total Hemoglobin 11.7 g/dL (14-18)
[2024-04-26 04:01] LABS: Troponin(5th) Baseline 79 ng/L (0-15)
[2024-04-26 04:02] LABS: Troponin 5 2HR 71.05 ng/L (0-15)
[2024-04-26 04:03] LABS: Troponin 5 2HR Delta -7.95 ABS# (0-10)
[2024-04-26 04:12] LABS: Basophils # 0.1 10^3/uL (0.0-0.1); Basophils % 0.7 %; Eosinophils # 0.3 10^3/uL (0.0-0.8); Eosinophils % 2.7 %; Hematocrit 39.7 % (37-53); Lymphocytes % 9.4 %; Mean Corpuscular HGB Conc 28.7 g/dL (30-55); Mean Corpuscular Hemoglobin 22.9 pg (27-33); Mean Corpuscular Volume 79.7 fl (82-101); Mean Platelet Volume 10.5 fL (7.4-10.4); Monocytes # 1.1 10^3/uL (0.2-0.9); Neutrophils # 8.41 10^3/uL (1.8-7.7); Neutrophils % 76.8 %; Nucleated Red Blood Cells % 0 %; Platelet Count 355 10^3/cmm (157-399); Red Blood Count 4.98 10^6/uL (3.85-5.65); Red Cell Distribution Width 19.3 % (12.1-15.1); White Blood Count 10.95 10^3/uL (3.29-11.43)
--- NOTE | 2024-04-26 04:17 | PM.CCNAC ---
Critical Care Event Note The high probability of a clinically significant, sudden or life threatening deterioration of the patient's [] system(s) required my full and direct attention, intervention and personal management. The critical care time is as shown. This time is in addition to time spent performing any reported procedures but includes the following: [x] Data and vital sign review and interpretation [x] Patient assessment, examination and intervention [x] Documentation [x] Medication orders and management Critical Care Time Code activated: No Critical Care Time (min): 45 Additional information about critical care time: - Patient was examined throughout the night -Reviewed patient's chart in detail, admitted for CHF, EF 30%, cellulitis -Patient has had episodes of sinus pauses and or high degree AV block throughout the night -Last episode was 20 seconds long -During the episode patient was a bit groggy, more confused, no significant hemodynamic compromise although maps around 65, each time he will go back to his normal sinus rhythm, EKG shows normal sinus rhythm -Upon evaluation, he is alert awake and follow commands is a bit groggy, is on 30% BiPAP, currently on Lasix drip -He has not received any sedating medications throughout the night oxycodone has been discontinued, last dose was at 6 PM -No other significant medications noted to cause high degree AV block -Blood sugars are within normal limits -Reviewed patient's strips, patient's last 2 strips, 120 seconds long, 115 seconds long to me look like high degree AV block, likely third-degree -No significant electrolyte abnormalities -Potassium is 3.9 I will give him 20 mEq IV potassium to maintain potassium greater than 4 -Magnesium 1.9, will give 1 g mag today maintain mag greater than 2 -Pacer pads are on patient, however has not required to be paced, as he goes back into normal sinus rhythm -Remains 30% BiPAP resting comfortably MAP is greater than 65, pulse is 70s to 80s -Started on dopamine drip -Spoke to cardiology, spoke to Dr. Head, recommended continued dopamine drip, external pacing if required -Patient will likely require temporary pacemaker placement versus permanent place maker placement -Will see how he does over the next few hours -Discussed with nursing staff in detail Coding Level of Care Code Acute Code for Chg Fwd
[2024-04-26 04:31] LABS: Alanine Aminotransferase 23 U/L (0-41); Albumin Level 2.9 g/dL (3.5-5.2); Alkaline Phosphatase 145 U/L (40-130); Anion Gap 13.7 (5-19); Aspartate Amino Transferase 20 U/L (0-40); Blood Urea Nitrogen 31 mg/dL (8-23); Calcium 8.4 mg/dL (8.5-10.5); Carbon Dioxide 30 mmol/L (22-29); Chloride 103 mmol/L (98-107); Creatinine Clr Calc Pharmacy 52.2509; Globulin 2.8 g/dL (1.3-4.6); Glomerular Filtration Rate 38.2 mL/min (90-130); Glucose 103 mg/dL (65-115); Magnesium 1.9 mg/dL (1.7-2.3); Osmolality Calculated 303 mOsm/kg (285-295); Potassium 3.7 mmol/L (3.5-5.1); Sodium 143 mmol/L (136-145); Total Bilirubin 1.1 mg/dL (0.15-1.2); Total Protein 5.7 g/dL (6.6-8.7)
[2024-04-26] MEDS: lidocaine 1% 5 ML in potassium chloride premix 100 ML 52.5 ML IV (04:41)
[2024-04-26] MEDS: magnesium sulfate premix 1 GM/100 ML PIGGYBACK IV (04:41)
--- NOTE | 2024-04-26 05:25 | ECG_ITS ---
[facility] Date: 2024-04-26 Pat Name: Ely Hare Department: Room: [facility] Gender: Male Family Consumer Scientist: : 1960 Requested By: Ashish Ortiz Order Number: [id number] Fabiano MD: Marylu Nick M.D. Measurements Intervals [place] Rate: 78 P: 18 IN: 148 QRS: -5 QRSD: 102 T: 107 QT: 404 QTc: 462 Interpretive Statements SINUS RHYTHM NONSPECIFIC T-WAVE ABNORMALITY Compared to ECG 04/26/2024 03:17:58 T-wave abnormality now present Electronically Signed On 04-26-2024 19:52:52 [employer]OWER MECHANIC by Marylu Nick M.D. [email or web address]
[2024-04-26 06:52] LABS: Troponin 5 6HR 62.75 ng/L (0-15)
[2024-04-26 06:55] LABS: Troponin 5 6HR Delta -16.25 ng/L (0-12)
--- NOTE | 2024-04-26 08:11 | P.PN_ITS ---
Subjective 2 Subjective: This patient apparently had episodes of complete heart block with no escape rhythms, lasting for 5 to 20 seconds. He was brought down to the ICU and was started on a dopamine drip. Currently he is back into sinus rhythm. He seems to be drowsy. No chest pain or palpitations. Received medical records from the [facility] in [place]. Apparently this patient had a cardiac catheterization at the [place], [place]. Patient was found to have no significant blockages. He was diagnosed with a nonischemic cardiomyopathy. The LV ejection fraction was around 25% at the time of the angiogram. Medications: Medication Review Details: Current Medications Acetaminophen (Acetaminophen 325 Mg Tablet) 650 mg PO Q6H PRN PRN Reason: Mild/Mod Pain Or Temp >/= 101 Last Admin: 04/25/24 07:45 Dose: 650 mg Docusate Sodium (Docusate Sodium 100 Mg Capsule) 100 mg PO BID AMBER Last Admin: 04/26/24 09:30 Dose: 100 mg Glucagon (Glucagon 1 Mg/Ml Kit 1 Ml) 1 mg IM ONCE PRN; Protocol PRN Reason: Adult Acute Hypoglycemia Nursing Prot. Heparin Sodium (Porcine) (Heparin 5,000 Unit/Ml Inj 1 Ml) 5,000 unit SUBCUT Q12H AMBER Last Admin: 04/26/24 03:37 Dose: Not Given Dextrose (D5w) 500 mls @ 0 mls/hr IV ONCE PRN; Protocol PRN Reason: Adult Acute Hypoglycemia Prot Dextrose (D10w) 125 mls @ 750 mls/hr IV PRN PRN; Protocol PRN Reason: Adult Acute Hypoglycemia Nursing Protocol Dextrose (D10w) 250 mls @ 1,000 mls/hr IV PRN PRN; Protocol PRN Reason: Adult Acute Hypoglycemia Nursing Protocol Linezolid (Zyvox Premix) 600 mg in 300 mls @ 300 mls/hr IV Q12H AMBER; Protocol Last Infusion: 04/26/24 10:30 Dose: Infused Furosemide 200 mg/ Sodium (Chloride) 100 mls @ 0 mls/hr IV .Q0M AMBER; Protocol Last Admin: 04/26/24 10:36 Dose: 20 mg/hr, 10 mls/hr Dopamine HCl/Dextrose (Intropin Drip) 400 mg in 250 mls @ 23.176 mls/hr IV CONT AMBER; Protocol Last Titration: 04/26/24 04:50 Dose: 2.5 mcg/kg/min, 11.59 mls/hr Piperacillin Sod/Tazobactam (Sod 3.375 gm/ Sodium Chloride) 50 mls @ 12.5 mls/hr IV Q8H AMBER Last Admin: 04/26/24 09:30 Dose: 12.5 mls/hr Insulin Human Lispro (Insulin Lispro 100 Unit/1 Ml) 0 unit SUBCUT WM&BEDTIME AMBER; Protocol Last Admin: 04/26/24 09:48 Dose: 2 unit Ondansetron HCl (Ondansetron 2 Mg/Ml Sdv 2 Ml) 4 mg IVP Q6H PRN PRN Reason: vomiting, or N/V if npo Oxycodone HCl (Oxycodone 5 Mg Ir Tab/Cap) 5 mg PO Q6H PRN PRN Reason: MODERATE PAIN Last Admin: 04/25/24 09:25 Dose: 5 mg Vitals/I&O/Wt Last Vital Signs Temp 97.7 F 04/26/24 04:00 Pulse 83 04/26/24 06:00 Resp 19 H 04/26/24 06:00 BP 93/62 04/26/24 06:00 Pulse Ox 91 04/26/24 06:00 O2 Del Method Nasal Cannula 04/26/24 06:00 O2 Flow Rate 5 04/26/24 06:00 FiO2 30 04/26/24 03:00 04/25/24 04/26/24 04/26/24 22:59 06:59 14:59 Intake Total 540 / 1190 253.990 / 1443.990 105 / 105 Output Total 2080 / 3330 2200 / 5530 Balance -1540 / -2140 -1946.010 / -4086.010 105 / 105 Weight last 48 hrs Weight 263 lb 7.238 oz Weight 272 lb 8 oz Weight 171 lb Weight 250 lb Physical Exam 2 Narrative: GENERAL: The patient is alert and oriented times three. Not in any acute distress. HEENT: No significant pallor, icterus or lymphadenopathy.Oral cavity: There are no mucous membrane lesions. NECK: Trachea appears to be central. No masses noted. No JVD or thyromegaly appreciated. RESPIRATORY: Chest is symmetrical. No intercostals muscle retraction or any accessory muscle activation. There is no chest wall tenderness. Breath sounds are heard bilaterally. No rales or rhonchi heard. No evidence of any consolidation. BREASTS: Deferred. HEART: The heart sounds are normal. No S3 or S4. Short systolic murmur in the left sternal border. No diastolic murmurs. No pericardial rub ABDOMEN: No vessel pulsations or distention. No tenderness. No organomegaly appreciated. Bowel sounds are normally heard. : Deferred. RECTAL: Deferred. LYMPHATIC: No lymphadenopathy noted in the neck. EXTREMITIES: 2-3+ edema both lower extremities, extensive ulceration on both legs and they are bandaged MUSCULOSKELETAL: No acute joint deformities or swelling SKIN: There are no significant rashes or ecchymosis NEUROPSYCHIATRIC: The patient is drowsy, but arousable. Moving all extremities Urinary Catheter Management: Marsh: Cath Placed During This Visit: yes Reason for Continuing Indwelling Catheter: Accurate Measurement of Urinary Output in Critically Ill Patients Urinary Catheter Date of Insertion: 04/24/24 Data 04/26/24 03:16 04/26/24 03:16 Other Labs: Laboratory Last Values WBC 10.95 10^3/uL (3.29-11.43) 04/26/24 03:16 RBC 4.98 10^6/uL (3.85-5.65) 04/26/24 03:16 Hgb 11.40 g/dL (11.27-16.99) 04/26/24 03:16 Hct 39.7 % (37-53) 04/26/24 03:16 MCV 79.7 fl (82-101) L 04/26/24 03:16 MCH 22.9 pg (27-33) L 04/26/24 03:16 MCHC 28.7 g/dL (30-55) L 04/26/24 03:16 RDW 19.3 % (12.1-15.1) H 04/26/24 03:16 Plt Count 355 10^3/cmm (157-399) 04/26/24 03:16 MPV 10.5 fL (7.4-10.4) H 04/26/24 03:16 Neut % (Auto) 76.8 % 04/26/24 03:16 Lymph % (Auto) 9.4 % 04/26/24 03:16 [place] % (Auto) 10.0 % 04/26/24 03:16 Eos % (Auto) 2.7 % 04/26/24 03:16 Baso % (Auto) 0.7 % 04/26/24 03:16 Neut # (Auto) 8.41 10^3/uL (1.8-7.7) H 04/26/24 03:16 Lymph # (Auto) 1.0 10^3/uL (0.8-4.8) 04/26/24 03:16 [place] # (Auto) 1.1 10^3/uL (0.2-0.9) H 04/26/24 03:16 Eos # (Auto) 0.3 10^3/uL (0.0-0.8) 04/26/24 03:16 Baso # (Auto) 0.1 10^3/uL (0.0-0.1) 04/26/24 03:16 Nucleated RBC % (auto) 0 % 04/26/24 03:16 Nucleated RBCs # 0.0 /100WBC 04/26/24 03:16 Specimen Type Arterial 04/26/24 03:35 Sample Site Radial, right 04/26/24 03:35 ABG pH 7.35 (7.35-7.45) 04/26/24 03:35 ABG pCO2 51.9 mmHg (35-45) H 04/26/24 03:35 ABG pO2 105.0 mmHg (80.0-100.0) H 04/26/24 03:35 ABG PO2/FiO2 Ratio 350 04/26/24 03:35 ABG HCO3 28.6 mmol/L (22-26) H 04/26/24 03:35 ABG O2 Saturation 98.5 04/26/24 03:35 ABG Base Excess 2.1 mmol/L (-2.0-2.0) H 04/26/24 03:35 Shawn Test Pos 04/26/24 03:35 A-a O2 Gradient 6.0 mmHg (5-10) 04/26/24 03:35 Hematocrit 35.9 % (42-52) L 04/26/24 03:35 Hgb O2 Saturation 96.7 % (95-100) 04/26/24 03:35 Carboxyhemoglobin 1.5 %THgb (0.4-20.1) 04/26/24 03:35 Methemoglobin 0.3 % (0.4-1.5) L 04/26/24 03:35 Total Hemoglobin 11.7 g/dL (14-18) L 04/26/24 03:35 Sodium 142.0 mmol/L (131-143) 04/26/24 03:35 Potassium 3.3 mmol/L (3.5-5.0) L 04/26/24 03:35 Glucose 89.0 mg/dL (70-115) 04/26/24 03:35 Ionized Calcium 1.2 mmol/L (1.1-1.4) 04/26/24 03:35 O2 Delivery Device Bipap 04/26/24 03:35 O2 Liters/Min 3.0 % 04/24/24 09:48 FiO2 30.0 % 04/26/24 03:35 Rfp Writer ID [email or web address] 04/26/24 03:35 Sodium 143 mmol/L (136-145) 04/26/24 03:16 Potassium 3.7 mmol/L (3.5-5.1) 04/26/24 03:16 Chloride 103 mmol/L (98-107) 04/26/24 03:16 Carbon Dioxide 30 mmol/L (22-29) H 04/26/24 03:16 Anion Gap 13.7 (5-19) 04/26/24 03:16 BUN 31 mg/dL (8-23) H 04/26/24 03:16 Creatinine 1.8 mg/dL (0.7-1.2) H 04/26/24 03:16 GFR Calculation 38.2 mL/min (90-130) L 04/26/24 03:16 Glucose 103 mg/dL (65-115) 04/26/24 03:16 POC Glucose 160 mg/dL (70-110) H 04/26/24 02:04 Calculated Osmolality 303 mOsm/kg (285-295) H 04/26/24 03:16 Lactic Acid 2.2 mmol/L (0.5-2.2) 04/24/24 08:45 Lactic Acid (Sepsis) 1.5 mmol/L (0.5-2.2) 04/24/24 13:07 Calcium 8.4 mg/dL (8.5-10.5) L 04/26/24 03:16 Magnesium 1.9 mg/dL (1.7-2.3) 04/26/24 03:16 Iron 30 ug/dL (59-158) L 04/24/24 08:45 TIBC 305 mcg/dl 04/24/24 08:45 % Saturation 9.8 % (20-50) L 04/24/24 08:45 Unsat Iron Binding 275 ug/dL (112-347) 04/24/24 08:45 Ferritin 91 ng/mL (30-400) 04/24/24 08:45 Total Bilirubin 1.1 mg/dL (0.15-1.2) 04/26/24 03:16 AST 20 U/L (0-40) 04/26/24 03:16 ALT 23 U/L (0-41) 04/26/24 03:16 Alkaline Phosphatase 145 U/L (40-130) H 04/26/24 03:16 Creatine Kinase 257 U/L (39-308) 04/24/24 08:45 Troponin T Baseline 79 ng/L (0-15) H 04/26/24 01:28 Troponin T 120 Minute 71.05 ng/L (0-15) H 04/26/24 03:30 Delta Troponin T -7.95 ABS# (0-10) L 04/26/24 03:30 Troponin T Hi Sens 6Hr 62.75 ng/L (0-15) H 04/26/24 06:27 Troponin T Hi Sens 6Hr Delta -16.25 ng/L (0-12) L 04/26/24 06:27 Total Protein 5.7 g/dL (6.6-8.7) L 04/26/24 03:16 Albumin 2.9 g/dL (3.5-5.2) L 04/26/24 03:16 Globulin 2.8 g/dL (1.3-4.6) 04/26/24 03:16 Lipase 91 U/L (13-60) H 04/24/24 08:45 Procalcitonin 0.09 ng/mL (0-0.5) 04/25/24 04:55 TSH 3.62 uIU/mL (0.27-4.20) 04/24/24 08:45 Urine Color Dark yellow (Yellow) A 04/24/24 12:55 Urine Appearance Cloudy (CLEAR) A 04/24/24 12:55 Urine pH 5.5 (5-7) 04/24/24 12:55 Ur Specific [place] 1.030 (1.005-1.030) 04/24/24 12:55 Urine Protein 3+ (Negative) A 04/24/24 12:55 Urine Glucose (UA) Negative (Normal) 04/24/24 12:55 Urine Ketones Negative (Negative) 04/24/24 12:55 Urine Blood Negative (Negative) 04/24/24 12:55 Urine Nitrate Negative (Negative) 04/24/24 12:55 Urine Bilirubin 1+ (Negative) H 04/24/24 12:55 Urine Urobilinogen 1.0 mg/dL (Negative) 04/24/24 12:55 Ur Leukocyte Esterase Trace (Negative) A 04/24/24 12:55 Urine RBC 0-2 /hpf (0-2) 04/24/24 12:55 Urine WBC 0-5 /hpf (0-5) 04/24/24 12:55 Ur Squamous Epith Cells 0-5 /hpf (0-5) 04/24/24 12:55 Calcium Oxalate Crystal 15-25 /hpf H 04/24/24 12:55 Amorphous Sediment Trace /hpf 04/24/24 12:55 Urine Bacteria None seen /hpf (NONE) 04/24/24 12:55 Hyaline Casts 25.23 /lpf 04/24/24 12:55 Fine Granular Casts 0-4 /lpf H 04/24/24 12:55 Urine Sperm 1+ /hpf 04/24/24 12:55 Micro: Microbiology 04/24/24 11:05 Blood Culture - Preliminary Blood NEGATIVE TO DATE 04/24/24 11:02 Blood Culture - Preliminary Blood NEGATIVE TO DATE Other data: Rhythm strip showed episodes of high degree AV block with no junctional or ventricular escape for 5 to 20 seconds A&P Assessment and plan (1) High degree atrioventricular block: Patient apparently had episodes of high degree AV block with no escape rhythm lasting anywhere from 5 to 20 seconds on the monitor. He is currently on a dopamine drip. Heart rate is in the 60s and 70s at this time. (2) Congestive heart failure: EF severely diminished at 30% with diffuse hypokinesis of the left ventricle. Patient may be continued on the IV diuresis. Try to optimize GDMT Qualifiers: Heart failure chronicity: acute on chronic Heart failure type: systolic Qualified Code(s): I50.23 - Acute on chronic systolic (congestive) heart failure (3) Hypertension: Well-controlled at this time. May continue current medication. Qualifiers: Hypertension type: primary hypertension Qualified Code(s): I10 - Essential (primary) hypertension (4) Acute kidney injury: Entresto is on hold, till the kidney function gets stabilized (5) Anasarca: Patient seems to be responding appropriately to diuresis (6) Type 2 diabetes mellitus: Patient may need to be started on SGLT2 inhibitor such as Farxiga or Jardiance in the future. Qualifiers: Diabetes mellitus complication detail: with peripheral angiopathy without gangrene Diabetes mellitus complication status: with circulatory complication Diabetes mellitus nursing home insulin use: without termite control representative use Qualified Code(s): E11.51 - Type 2 diabetes mellitus with diabetic peripheral angiopathy without gangrene (7) Bilateral leg ulcer: Patient apparently had a venous Doppler examination and arterial Doppler examination. Was found to have normal ABIs bilaterally. No evidence of DVT by the venous oral examination. Qualifiers: Non-pressure ulcer stage: unspecified non-pressure ulcer stage Qualified Code(s): L97.919 - Non-pressure chronic ulcer of unspecified part of right lower leg with unspecified severity; L97.929 - Non-pressure chronic ulcer of unspecified part of left lower leg with unspecified severity Plan Because of the high degree AV block, this patient requires dual-chamber pacemaker. In view of his severe LV systolic dysfunction and recurrent heart failure, he might benefit from a COSTUME RENTAL CLERK-D. This was discussed with the patient in detail which he understood well and consented to proceed. I contacted Dr. Polo, CT surgeon at the [facility] and discussed the patient's case. Dr. Polo accepted transfer for further evaluation and management Discussed with Dr. Smith, who concurred with this plan Attestations 2 Medical Necessity Statement*: Possible transfer to [facility] Coding Level of Care Code 23476 Diagnoses High degree atrioventricular block I44.39 Acute on chronic systolic congestive heart failure I50.23 Heart failure chronicity: acute on chronic Heart failure type: systolic Primary hypertension I10 Hypertension type: primary hypertension Acute kidney injury N17.9 Anasarca R60.1 Type 2 diabetes mellitus with diabetic peripheral angiopathy without gangrene, without long-term current use of insulin E11.51 Diabetes mellitus complication detail: with peripheral angiopathy without gangrene Diabetes mellitus complication status: with circulatory complication Diabetes mellitus nursing home insulin use: without nursing home use Ulcers of both lower extremities, unspecified ulcer stage L97.919; L97.929 Non-pressure ulcer stage: unspecified non-pressure ulcer stage
--- NOTE | 2024-04-26 08:34 | PM.MISC ---
Miscellaneous Note Purpose of Documentation: Update on patient care Note: Patient was scheduled to go to the OR this afternoon for debridement of multiple wounds on bilateral lower extremities consistent with chronic venous ulcerations. Unfortunately patient has had significant changes in his medical condition over the last 24 hours, has developed cardiac arrhythmia that will require additional intervention per cardiology. At this point patient is planned for transfer to higher level of care for cardiac intervention. Debridement of his wounds can be the for until after cardiac condition is stabilized. In the meantime local wound care can be continued.
--- NOTE | 2024-04-26 09:06 | P.TS_ITS ---
Transfer Summary Providers Date of Admission: 04/24/24 12:01 Date of Discharge/Transfer: 04/26/24 Attending Provider at Admission: Jaret Smith MD Attending Provider at Transfer: Jaret Smith MD Primary Care Provider: Itz Pierson MD Transfer Plans: Anticipated date of transfer: 04/26/24 . Diagnoses at Discharge Discharge Diagnosis (1) Congestive heart failure: Status: Acute Qualifiers: Heart failure chronicity: acute on chronic Heart failure type: systolic Qualified Code(s): I50.23 - Acute on chronic systolic (congestive) heart failure (2) Hypertension: Status: Acute Qualifiers: Hypertension type: primary hypertension Qualified Code(s): I10 - Essential (primary) hypertension (3) Acute kidney injury: Status: Acute (4) Anasarca: Status: Acute (5) Type 2 diabetes mellitus: Status: Acute Qualifiers: Diabetes mellitus complication detail: with peripheral angiopathy without gangrene Diabetes mellitus complication status: with circulatory complication Diabetes mellitus residential insulin use: without residential use Qualified Code(s): E11.51 - Type 2 diabetes mellitus with diabetic peripheral angiopathy without gangrene (6) Bilateral leg ulcer: Status: Acute Qualifiers: Non-pressure ulcer stage: unspecified non-pressure ulcer stage Qualified Code(s): L97.919 - Non-pressure chronic ulcer of unspecified part of right lower leg with unspecified severity; L97.929 - Non-pressure chronic ulcer of unspecified part of left lower leg with unspecified severity Reason for Visit Reason for Visit MRSA, HTN Hospital Course Hospital Course Patient is a 63-year-old white male, who usually receives cardiac care at [place], who presented to the hospital with anasarca and shortness of breath. He had significant hypoxia and required large amounts of oxygen, and transition to BiPAP. Intermittent IV Lasix dose was not effective in the first 12 hours and he was put on the Lasix drip, and received a dose of Zaroxolyn. He had lower extremity ulcerations noted on admission and was placed on linezolid initially, broadened to Zosyn. During his ICU stay for close monitoring secondary to need for BiPAP, complete heart block was noted. Dopamine was started and this resolved. He was on carvedilol on admission but of this was stopped when complete heart block was noted. He had no bradycardia preceding this. He has a known EF of 30% or less based on echocardiogram, and even previous LV CORS none several months early at [place] when it was determined he had a nonischemic cardiomyopathy. Secondary to the complete heart block, likely need for TRAINING AND DEVELOPMENT ASSISTANT device, cardiology recommended transfer. He was graciously excepted at [place]. Risks and benefits of transfer were discussed with the patient. He does have a black eschar, right chowdhury which surgery was considering debriding. This is relatively elective at this point and not thought to be significantly infected. Physical Exam Narrative: General exam is a sleepy male, who can become responsive to stimulation, current ly on 4 L of oxygen and a Lasix drip Neck is supple Cardiovascular regular rate and rhythm, heart sounds distant Lungs diminished breath sounds at the bases Abdomen soft Extremities edema all the way to the hips, 4+ Urinary Catheter Management: Marsh: Cath Placed During This Visit: yes Reason for Continuing Indwelling Catheter: Accurate Measurement of Urinary Output in Critically Ill Patients Urinary Catheter Date of Insertion: 04/24/24 TS Data Studies Completed and Pending Pending at discharge Category Date Time Status Cardiac Stress Test MIBI [Sestamibi Stress Test Request Exams 04/25/24 19:54 Ordered ] Routine Blood Culture Stat Lab 04/24/24 11:02 Results MRSA PCR OZH (swab) Routine Lab 04/26/24 08:04 Uncollected NM ja perf SPECT r/s* [id number] Routine Nuc Med 04/26/24 19:54 Ordered Completed Studies During Hospitalization Category Date Time Status XR chest 1V portable [id number] Stat Exams 04/24/24 09:37 [place] [id number] Routine Ultrasound 04/24/24 14:23 Completed CV. echo complete* [id number] Routine Ultrasound 04/24/24 14:24 Completed US arterial duplex lower extremity bilat [CV arterial Ultrasound 04/24/24 11:17 [place] [id number]] Stat Laboratory Last Values WBC 10.95 10^3/uL (3.29-11.43) 04/26/24 03:16 RBC 4.98 10^6/uL (3.85-5.65) 04/26/24 03:16 Hgb 11.40 g/dL (11.27-16.99) 04/26/24 03:16 Hct 39.7 % (37-53) 04/26/24 03:16 MCV 79.7 fl (82-101) L 04/26/24 03:16 MCH 22.9 pg (27-33) L 04/26/24 03:16 MCHC 28.7 g/dL (30-55) L 04/26/24 03:16 RDW 19.3 % (12.1-15.1) H 04/26/24 03:16 Plt Count 355 10^3/cmm (157-399) 04/26/24 03:16 MPV 10.5 fL (7.4-10.4) H 04/26/24 03:16 Neut % (Auto) 76.8 % 04/26/24 03:16 Lymph % (Auto) 9.4 % 04/26/24 03:16 [place] % (Auto) 10.0 % 04/26/24 03:16 Eos % (Auto) 2.7 % 04/26/24 03:16 Baso % (Auto) 0.7 % 04/26/24 03:16 Neut # (Auto) 8.41 10^3/uL (1.8-7.7) H 04/26/24 03:16 Lymph # (Auto) 1.0 10^3/uL (0.8-4.8) 04/26/24 03:16 [place] # (Auto) 1.1 10^3/uL (0.2-0.9) H 04/26/24 03:16 Eos # (Auto) 0.3 10^3/uL (0.0-0.8) 04/26/24 03:16 Baso # (Auto) 0.1 10^3/uL (0.0-0.1) 04/26/24 03:16 Nucleated RBC % (auto) 0 % 04/26/24 03:16 Nucleated RBCs # 0.0 /100WBC 04/26/24 03:16 Specimen Type Arterial 04/26/24 03:35 Sample Site Radial, right 04/26/24 03:35 ABG pH 7.35 (7.35-7.45) 04/26/24 03:35 ABG pCO2 51.9 mmHg (35-45) H 04/26/24 03:35 ABG pO2 105.0 mmHg (80.0-100.0) H 04/26/24 03:35 ABG PO2/FiO2 Ratio 350 04/26/24 03:35 ABG HCO3 28.6 mmol/L (22-26) H 04/26/24 03:35 ABG O2 Saturation 98.5 04/26/24 03:35 ABG Base Excess 2.1 mmol/L (-2.0-2.0) H 04/26/24 03:35 Shawn Test Pos 04/26/24 03:35 A-a O2 Gradient 6.0 mmHg (5-10) 04/26/24 03:35 Hematocrit 35.9 % (42-52) L 04/26/24 03:35 Hgb O2 Saturation 96.7 % (95-100) 04/26/24 03:35 Carboxyhemoglobin 1.5 %THgb (0.4-20.1) 04/26/24 03:35 Methemoglobin 0.3 % (0.4-1.5) L 04/26/24 03:35 Total Hemoglobin 11.7 g/dL (14-18) L 04/26/24 03:35 Sodium 142.0 mmol/L (131-143) 04/26/24 03:35 Potassium 3.3 mmol/L (3.5-5.0) L 04/26/24 03:35 Glucose 89.0 mg/dL (70-115) 04/26/24 03:35 Ionized Calcium 1.2 mmol/L (1.1-1.4) 04/26/24 03:35 O2 Delivery Device Bipap 04/26/24 03:35 O2 Liters/Min 3.0 % 04/24/24 09:48 FiO2 30.0 % 04/26/24 03:35 Inspector Firearms ID [id number] 04/26/24 03:35 Sodium 143 mmol/L (136-145) 04/26/24 03:16 Potassium 3.7 mmol/L (3.5-5.1) 04/26/24 03:16 Chloride 103 mmol/L (98-107) 04/26/24 03:16 Carbon Dioxide 30 mmol/L (22-29) H 04/26/24 03:16 Anion Gap 13.7 (5-19) 04/26/24 03:16 BUN 31 mg/dL (8-23) H 04/26/24 03:16 Creatinine 1.8 mg/dL (0.7-1.2) H 04/26/24 03:16 GFR Calculation 38.2 mL/min (90-130) L 04/26/24 03:16 Glucose 103 mg/dL (65-115) 04/26/24 03:16 POC Glucose 160 mg/dL (70-110) H 04/26/24 02:04 Calculated Osmolality 303 mOsm/kg (285-295) H 04/26/24 03:16 Lactic Acid 2.2 mmol/L (0.5-2.2) 04/24/24 08:45 Lactic Acid (Sepsis) 1.5 mmol/L (0.5-2.2) 04/24/24 13:07 Calcium 8.4 mg/dL (8.5-10.5) L 04/26/24 03:16 Magnesium 1.9 mg/dL (1.7-2.3) 04/26/24 03:16 Iron 30 ug/dL (59-158) L 04/24/24 08:45 TIBC 305 mcg/dl 04/24/24 08:45 % Saturation 9.8 % (20-50) L 04/24/24 08:45 Unsat Iron Binding 275 ug/dL (112-347) 04/24/24 08:45 Ferritin 91 ng/mL (30-400) 04/24/24 08:45 Total Bilirubin 1.1 mg/dL (0.15-1.2) 04/26/24 03:16 AST 20 U/L (0-40) 04/26/24 03:16 ALT 23 U/L (0-41) 04/26/24 03:16 Alkaline Phosphatase 145 U/L (40-130) H 04/26/24 03:16 Creatine Kinase 257 U/L (39-308) 04/24/24 08:45 Troponin T Baseline 79 ng/L (0-15) H 04/26/24 01:28 Troponin T 120 Minute 71.05 ng/L (0-15) H 04/26/24 03:30 Delta Troponin T -7.95 ABS# (0-10) L 04/26/24 03:30 Troponin T Hi Sens 6Hr 62.75 ng/L (0-15) H 04/26/24 06:27 Troponin T Hi Sens 6Hr Delta -16.25 ng/L (0-12) L 04/26/24 06:27 Total Protein 5.7 g/dL (6.6-8.7) L 04/26/24 03:16 Albumin 2.9 g/dL (3.5-5.2) L 04/26/24 03:16 Globulin 2.8 g/dL (1.3-4.6) 04/26/24 03:16 Lipase 91 U/L (13-60) H 04/24/24 08:45 Procalcitonin 0.09 ng/mL (0-0.5) 04/25/24 04:55 TSH 3.62 uIU/mL (0.27-4.20) 04/24/24 08:45 Urine Color Dark yellow (Yellow) A 04/24/24 12:55 Urine Appearance Cloudy (CLEAR) A 04/24/24 12:55 Urine pH 5.5 (5-7) 04/24/24 12:55 Ur Specific [place] 1.030 (1.005-1.030) 04/24/24 12:55 Urine Protein 3+ (Negative) A 04/24/24 12:55 Urine Glucose (UA) Negative (Normal) 04/24/24 12:55 Urine Ketones Negative (Negative) 04/24/24 12:55 Urine Blood Negative (Negative) 04/24/24 12:55 Urine Nitrate Negative (Negative) 04/24/24 12:55 Urine Bilirubin 1+ (Negative) H 04/24/24 12:55 Urine Urobilinogen 1.0 mg/dL (Negative) 04/24/24 12:55 Ur Leukocyte Esterase Trace (Negative) A 04/24/24 12:55 Urine RBC 0-2 /hpf (0-2) 04/24/24 12:55 Urine WBC 0-5 /hpf (0-5) 04/24/24 12:55 Ur Squamous Epith Cells 0-5 /hpf (0-5) 04/24/24 12:55 Calcium Oxalate Crystal 15-25 /hpf H 04/24/24 12:55 Amorphous Sediment Trace /hpf 04/24/24 12:55 Urine Bacteria None seen /hpf (NONE) 04/24/24 12:55 Hyaline Casts 25.23 /lpf 04/24/24 12:55 Fine Granular Casts 0-4 /lpf H 04/24/24 12:55 Urine Sperm 1+ /hpf 04/24/24 12:55 Radiology Impressions Chest X-Ray 04/24/24 09:37 Impression: Cardiomegaly and atherosclerosis. Recent Clincial Data Last Vital Signs Temp 97.7 F 04/26/24 04:00 Pulse 83 04/26/24 06:00 Resp 19 H 04/26/24 06:00 BP 93/62 04/26/24 06:00 Pulse Ox 91 04/26/24 06:00 O2 Del Method Nasal Cannula 04/26/24 06:00 O2 Flow Rate 5 04/26/24 06:00 FiO2 30 04/26/24 03:00 Vital Signs Temp Pulse Resp BP Pulse Ox O2 Del Method O2 Flow Rate 04/26/24 06:00 75 19 H 93/62 91 Nasal Cannula 5 04/26/24 06:00 83 04/26/24 05:30 74 15 106/70 93 Nasal Cannula 5 04/26/24 05:00 88 15 117/70 93 Nasal Cannula 5 04/26/24 04:30 88 16 111/76 93 Nasal Cannula 5 04/26/24 04:00 97.7 F 84 27 H 106/78 90 Nasal Cannula 5 04/26/24 03:30 72 18 99/71 91 Nasal Cannula 5 04/26/24 03:00 78 14 98/64 95 BiPAP 04/26/24 02:30 58 L 22 H 104/82 94 BiPAP 04/26/24 02:00 75 17 101/74 94 BiPAP 04/26/24 01:30 55 L 11 L 104/71 92 BiPAP 04/26/24 01:00 71 14 85/58 93 BiPAP 04/26/24 00:30 68 17 99/68 96 BiPAP 04/26/24 00:00 97.1 F L 69 17 114/57 90 BiPAP 04/25/24 23:42 68 97 04/25/24 23:30 74 14 88/59 94 BiPAP 04/25/24 23:00 71 23 H 88/59 92 BiPAP 04/25/24 22:30 64 16 94/68 95 BiPAP 04/25/24 22:00 69 23 H 96/66 95 BiPAP 04/25/24 22:00 70 04/25/24 21:30 70 14 94/60 93 Nasal Cannula 5 FiO2 04/26/24 06:00 12/20/24 06:00 04/26/24 05:30 04/26/24 05:00 04/26/24 04:30 04/26/24 04:00 04/26/24 03:30 04/26/24 03:00 30 04/26/24 02:30 30 04/26/24 02:00 30 04/26/24 01:30 30 04/26/24 01:00 30 04/26/24 00:30 30 04/26/24 00:00 30 04/25/24 23:42 30 04/25/24 23:30 30 04/25/24 23:00 30 04/25/24 22:30 30 04/25/24 22:00 30 04/25/24 22:00 04/25/24 21:30 Intake & Output/Weight 04/24/24 04/25/24 04/26/24 04/27/24 06:59 06:59 06:59 06:59 Intake Total 1720 / 1720 1443.990 / 1443.990 105 / 105 Output Total 1700 / 1700 5530 / 5530 Balance -4086.010 / -4086.010 105 / 105 Weight 123.604 kg 119.5 kg Vitals Last Vital Signs Temp 97.7 F 04/26/24 04:00 Pulse 83 04/26/24 06:00 Resp 19 H 04/26/24 06:00 BP 93/62 04/26/24 06:00 Pulse Ox 91 04/26/24 06:00 O2 Del Method Nasal Cannula 04/26/24 06:00 O2 Flow Rate 5 04/26/24 06:00 FiO2 30 04/26/24 03:00 TS Medications Medications Acetaminophen (Acetaminophen 325 Mg Tablet) 650 mg PO Q6H PRN PRN Reason: Mild/Mod Pain Or Temp >/= 101 Last Admin: 04/25/24 07:45 Dose: 650 mg Docusate Sodium (Docusate Sodium 100 Mg Capsule) 100 mg PO BID AMBER Last Admin: 04/25/24 18:21 Dose: 100 mg Glucagon (Glucagon 1 Mg/Ml Kit 1 Ml) 1 mg IM ONCE PRN; Protocol PRN Reason: Adult Acute Hypoglycemia Nursing Prot. Heparin Sodium (Porcine) (Heparin 5,000 Unit/Ml Inj 1 Ml) 5,000 unit SUBCUT Q12H AMBER Last Admin: 04/26/24 03:37 Dose: Not Given Dextrose (D5w) 500 mls @ 0 mls/hr IV ONCE PRN; Protocol PRN Reason: Adult Acute Hypoglycemia Prot Dextrose (D10w) 125 mls @ 750 mls/hr IV PRN PRN; Protocol PRN Reason: Adult Acute Hypoglycemia Nursing Protocol Dextrose (D10w) 250 mls @ 1,000 mls/hr IV PRN PRN; Protocol PRN Reason: Adult Acute Hypoglycemia Nursing Protocol Linezolid (Zyvox Premix) 600 mg in 300 mls @ 300 mls/hr IV Q12H AMBER; Protocol Last Infusion: 04/25/24 22:25 Dose: Infused Furosemide 200 mg/ Sodium (Chloride) 100 mls @ 0 mls/hr IV .Q0M AMBER; Protocol Last Titration: 04/26/24 05:20 Dose: 20 mg/hr, 10 mls/hr Dopamine HCl/Dextrose (Intropin Drip) 400 mg in 250 mls @ 23.176 mls/hr IV CONT AMBER; Protocol Last Titration: 04/26/24 04:50 Dose: 2.5 mcg/kg/min, 11.59 mls/hr Piperacillin Sod/Tazobactam (Sod 3.375 gm/ Sodium Chloride) 50 mls @ 12.5 mls/hr IV Q8H AMBER Insulin Human Lispro (Insulin Lispro 100 Unit/1 Ml) 0 unit SUBCUT WM&BEDTIME AMBER; Protocol Last Admin: 04/25/24 21:30 Dose: 6 unit Ondansetron HCl (Ondansetron 2 Mg/Ml Sdv 2 Ml) 4 mg IVP Q6H PRN PRN Reason: vomiting, or N/V if npo Oxycodone HCl (Oxycodone 5 Mg Ir Tab/Cap) 5 mg PO Q6H PRN PRN Reason: MODERATE PAIN Last Admin: 04/25/24 09:25 Dose: 5 mg Discontinued Medications Carvedilol (Carvedilol 6.25 Mg Tablet) 6.25 mg PO BID [facility] Last Admin: 04/25/24 18:21 Dose: 6.25 mg Furosemide (Furosemide 10 Mg/Ml Sdv 10ml) 40 mg IVP ONCE ONE Stop: 04/24/24 11:18 Last Admin: 04/24/24 12:38 Dose: 40 mg Furosemide (Furosemide 10 Mg/Ml Sdv 10ml) 60 mg IVP Q12H [facility] Last Admin: 04/24/24 22:17 Dose: 60 mg Furosemide (Furosemide 10 Mg/Ml Sdv 10ml) 80 mg IVP Q12H AMBER Last Admin: 04/25/24 10:13 Dose: 80 mg Hydroxyzine Pamoate (Hydroxyzine 25 Mg Capsule) 25 mg PO ONCE ONE Stop: 04/24/24 22:42 Last Admin: 04/25/24 01:34 Dose: 25 mg Linezolid (Zyvox Premix) 600 mg in 300 mls @ 300 mls/hr IV ONCE ONE; Protocol Stop: 04/24/24 12:16 Last Infusion: 04/24/24 15:47 Dose: Infused Iron Sucrose 200 mg/ Sodium (Chloride) 110 mls @ 220 mls/hr IV ONCE ONE Stop: 04/25/24 08:59 Last Infusion: 04/25/24 12:27 Dose: Infused Furosemide 100 mg/ Sodium (Chloride) 50 mls @ 0 mls/hr IV .Q0M AMBER; Protocol Last Titration: 04/26/24 02:00 Dose: Infused Dopamine HCl/Dextrose (Intropin Drip) Confirm Administered Dose 400 mg in 250 mls @ as directed .ROUTE .STK-MED ONE Stop: 04/26/24 03:41 Magnesium Sulfate/Dextrose (Magnesium Sulfate Premix) 1 gm in 100 mls @ 200 mls/hr IV ONCE ONE Stop: 04/26/24 04:51 Last Infusion: 04/26/24 05:38 Dose: Infused Lidocaine HCl 5 ml/ Potassium (Chloride) 105 mls @ 52.5 mls/hr IV ONCE ONE Stop: 04/26/24 06:29 Last Infusion: 04/26/24 07:03 Dose: Infused Metolazone (Metolazone 5 Mg Tablet) 5 mg PO ONCE ONE Stop: 04/25/24 14:39 Last Admin: 04/25/24 15:45 Dose: 5 mg Allergies No Known Allergies Allergy (Verified 01/22/24 17:16) Home Medications docusate sodium 100 mg capsule (Colace) 100 mg PO BID #14 caps 11/14/22 [Rx Confirmed 04/24/24] carvedilol 6.25 mg tablet 6.25 mg PO BID 04/24/24 [History Confirmed 04/24/24] sacubitril 24 mg-valsartan 26 mg tablet (Entresto) 1 tab PO BID 04/24/24 [History Confirmed 04/24/24] Discharge Plan Discharge Patient Disposition: Xfer Short-Term Hosp Condition: Stable Prescriptions: No Action docusate sodium [Colace] 100 mg capsule 100 mg PO BID Qty: 14 0RF carvedilol 6.25 mg tablet 6.25 mg PO BID sacubitril-valsartan [Entresto] 24-26 mg tablet 1 tab PO BID Discharge Orders: Transfer Out of Facility (Order); Ordered 04/26/24 Ordered By: Jaret Smith Other Ambulatory Orders: DME: Wheelchair (Order) Location: None Selected Ordered By: Jaret Smith Referrals: Itz Pierson MD [Primary Care Provider] - Patient Instructions: Acute Wound Care (DC), Post Anesthesia Care Transfer Attestations Time Spent in Transfer Care: greater than 30 min Quality Metrics Clinical Quality Measures [ No reported AMI, CVA or VTE this stay] Coding Level of Care Code 81934 Total time (in minutes) for Discharge: 46 Diagnoses Acute on chronic systolic congestive heart failure I50.23 Heart failure chronicity: acute on chronic Heart failure type: systolic Primary hypertension I10 Hypertension type: primary hypertension Acute kidney injury N17.9 Anasarca R60.1 Type 2 diabetes mellitus with diabetic peripheral angiopathy without gangrene, without long-term current use of insulin E11.51 Diabetes mellitus complication detail: with peripheral angiopathy without gangrene Diabetes mellitus complication status: with circulatory complication 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
--- NOTE | 2024-04-26 09:25 | ECG_ITS ---
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 Measurements Intervals [place] Rate: 83 P: 43 NH: 156 QRS: 10 QRSD: 103 T: 133 QT: 407 QTc: 481 Interpretive Statements SINUS RHYTHM NONSPECIFIC ST & T-WAVE ABNORMALITY Compared to ECG 04/26/2024 05:18:22 No significant changes Electronically Signed On 04-26-2024 19:52:57 PLATE INSPECTOR by Marylu Nick M.D. [email or web address]
[2024-04-26] MEDS: linezolid premix 600 MG/300 ML PREMIX 300 MG IV (09:30)
[2024-04-26] MEDS: piperacillin-tazobactam 3.375 GM in sodium chloride 0.9% (plus) 50 ML IV ×2 (09:30→17:11)
[2024-04-26] MEDS: docusate sodium 100 mg Capsule PO ×2 (09:30→17:11)
[2024-04-26] MEDS: insulin lispro 100 unit/1 mL SUBCUT ×2 (09:48→17:27)
[2024-04-26] MEDS: FUROsemide 200 MG in sodium chloride 0.9% (100 ml) 80 ML 10 MG IV (10:36)
[2024-04-26 11:49] LABS: Glucose Point of Care 166 mg/dL (70-110)
[2024-04-26 12:16] LABS: MRSA PCR OZH (swab) MRSA Detected (Negative)
[2024-04-26 12:47] LABS: Glucose Point of Care 122 mg/dL (70-110)
[2024-04-26] MEDS: heparin 5,000 unit/mL INJ 1 mL 5000 UNIT SUBCUT (17:12)
[2024-04-26 17:38] LABS: Glucose Point of Care 470 mg/dL (70-110)
--- NOTE | 2024-04-26 18:34 | PC.NURSE ---
Transfer Note Patient transferred to [facility] unit 3E from ICU via EMS. Handoff report given to ELIZABETH Jameson. Patient oriented to environment and equipment. Covering service notified. Orders reviewed and will continue to monitor. Upon transfer patient is alert/oriented x4 on room air. All patient belongings transferred with patient to [facility].
== END 2024-04-26 18:21 | disposition short-term general hospital (02) | DRG 308 ==
LOC: ER 11:37 → ER IP 12:01 → CSU 14:42 → ICU 04-25 17:24
PROVIDERS: Family Medicine; Admitting Provider Internal Medicine; Emergency Provider Family Medicine; PCP Family Medicine; Visit Provider Internal Medicine
DX: I44.2 Atrioventricular block, complete (principal); I50.23 Acute on chronic systolic (congestive) heart failure; L03.116 Cellulitis of left lower limb; L03.115 Cellulitis of right lower limb; N17.9 Acute kidney failure, unspecified; L97.811 Non-pressure chronic ulcer of other part of right lower leg limited to breakdown of skin; L97.821 Non-pressure chronic ulcer of other part of left lower leg limited to breakdown of skin; G93.40 Encephalopathy, unspecified; I42.8 Other cardiomyopathies; B95.62 Methicillin resistant Staphylococcus aureus infection as the cause of diseases classified elsewhere; I11.0 Hypertensive heart disease with heart failure; M10.9 Gout, unspecified; M05.9 Rheumatoid arthritis with rheumatoid factor, unspecified; R09.02 Hypoxemia; I83.018 Varicose veins of right lower extremity with ulcer other part of lower leg; I83.028 Varicose veins of left lower extremity with ulcer other part of lower leg; E11.51 Type 2 diabetes mellitus with diabetic peripheral angiopathy without gangrene; E61.1 Iron deficiency; Z99.81 Dependence on supplemental oxygen; Z80.3 Family history of malignant neoplasm of breast; Z80.7 Family history of other malignant neoplasms of lymphoid, hematopoietic and related tissues; Z82.49 Family history of ischemic heart disease and other diseases of the circulatory system; Z83.3 Family history of diabetes mellitus
CPT/HCPCS: 36415; 36416; 36600; 51702; 71045; 80048; 80051; 80053; 81001; 82330; 82550; 82728; 82805; 82962; 83540; 83550; 83605; 83690; 83735; 84145; 84443; 84484; 85025; 87040; 93005; 93306; 93925; 93970; 94660; 96365; 96372; 96375; 96376; 99254; 99285; A9270; J1265; J1644; J1756; J1815; J1940; J2020; J2543; J3475; J3480

== ENCOUNTER 2024-06-10 17:57 | Inpatient (IN) | payer BC, SELFPAY ==
[2024-06-10] VITALS (7 sets, daily range): BP systolic 140–176; BP diastolic 92–112; PULSE 91–110; RESP 16–18; TEMP 36.8; O2SAT 92–97; BMI 25.0
--- NOTE | 2024-06-10 18:07 | CTR_ITS ---
PROCEDURE INFORMATION: Exam: CT Head Without Contrast Exam date and time: 06/10/2024 6:21 PM Age: 63 years old Clinical indication: Injury or trauma; Fall; Concussion/head injury; Consciousness not specified; Additional info: Fall/hit head TECHNIQUE: Imaging protocol: Computed tomography of the head without contrast. Radiation optimization: All CT scans at this facility use at least one of these dose optimization techniques: automated exposure control; mA and/or kV adjustment per patient size (includes targeted exams where dose is matched to clinical indication); or iterative reconstruction. COMPARISON: No relevant prior studies available. RADIATION DOSE METRICS: Total DLP (mGy-cm): 1097.38 FINDINGS: Brain: Subcortical and periventricular white matter changes consistent with small-vessel ischemic disease in the appropriate clinical setting. Small-vessel ischemic disease. No acute intracranial abnormality. Cerebral ventricles: No ventriculomegaly. Paranasal sinuses: Visualized sinuses are unremarkable. No fluid levels. Mastoid air cells: Visualized mastoid air cells are well aerated. Bones: Unremarkable. No acute fracture. Soft tissues: Unremarkable. CT/CT head wo con* [id number] IMPRESSION: 1. No acute intracranial abnormality. 2. Small-vessel ischemic disease.
--- NOTE | 2024-06-10 18:08 | XRR_ITS ---
PROCEDURE INFORMATION: Exam: XR Chest Exam date and time: 06/10/2024 6:11 PM Age: 63 years old Clinical indication: Other: Dizzy; Additional info: Weak, dizzy TECHNIQUE: Imaging protocol: Radiologic exam of the chest. Views: 1 view. COMPARISON: CR XR chest 1V portable [id number] 04/24/2024 9:43 AM FINDINGS: Tubes, catheters and devices: Left-sided cardiac pacemaker device. Lungs: There is a 4.5 cm rounded opacity projecting through the left lower lobe which may represent artifact from the left 6 anterior rib end; however, a true pulmonary lesion can not be excluded and a PA and lateral chest radiograph may help to confirm/exclude this finding. Pleural spaces: Unremarkable. No pleural effusion. No pneumothorax. Heart/Mediastinum: Unremarkable. No cardiomegaly. Bones/joints: Unremarkable. XR/XR chest 1V portable [id number] IMPRESSION: There is a 4.5 cm rounded opacity projecting through the left lower lobe which may represent artifact from the left 6 anterior rib end; however, a true pulmonary lesion can not be excluded and a PA and lateral chest radiograph may help to confirm/exclude this finding.
--- NOTE | 2024-06-10 18:09 | W.ED.DIZZY ---
HPI - Dizziness General: Chief Complaint: Dizziness Stated Complaint: dizziness, falls Time Seen by Provider: 06/10/24 18:01 Source: patient and EMS Mode of arrival: EMS Limitations: no limitations History of Present Illness: HPI Narrative: Patient is a 63-year-old male with past medical history of CHF hypertension presenting to the emergency department by ambulance for dizziness and overall not feeling well for the past few days. Patient reportedly was hospitalized from April 24 of last [address] the way until a week ago. Initially was admitted to the ICU here for acute kidney injury associated with fluid overload, was found to have a complete heart block and subsequent transfer to 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 Here in the ICU was also bridged from linezolid to Zosyn due to his chronic bilateral ulcerated shins, and also received Lasix drip. Reports are attempted to be obtained at this time for Swetha. States that he lives at home with director biology, and has had 0 strength over the past couple of days and has had a couple falls today where he reports 1 point he fell and hit his head. Does not believe he is on a blood thinner, his med list is not updated at this time. Also states he does not think he is on a water pill, notes that his abdomen has been swelling more significantly, which was also what he presented with in the month of April. He is denying any chest pain, shortness of breath, fever, or other symptoms. He does note that his skin has been jaundiced, there is obvious jaundice at time of examination. He does not use oxygen at home, though with prior ICU admission was requiring BiPAP. With the fall, denies losing consciousness, normally is ambulatory without assistance. States that he has gained weight since being discharged but cannot quantify. MD elicited complaint: dizziness and other (Weakness, falls) Pertinent past history: other (CHF, hypertension) Onset (ago): day(s) Timing: gradual onset and constant Severity: moderate Associated symptoms: Reports malaise; Denies chest pain, chills, headache(s), nausea, palpitations or vomiting Associated neuro symptoms: Deny numbness in extremities Related Data Home Medications Medication Instructions Recorded Confirmed carvedilol 6.25 mg tablet 6.25 mg PO BID 04/24/24 04/24/24 sacubitril 24 mg-valsartan 26 mg 1 tab PO BID 04/24/24 04/24/24 tablet (Entresto) Previous Rx's Medication Instructions Recorded docusate sodium 100 mg capsule 100 mg PO BID #14 caps 11/14/22 (Colace) Allergies Allergy/AdvReac Type Severity Reaction Status Date / Time No Known Allergies Allergy Verified 01/22/24 17:16 Review of Systems General: Reports: 10 or more systems reviewed and unremarkable except in HPI and below Const: Reports: fatigue, malaise and other (Falls); Denies: fever(s) or chills Eyes: Denies: change in vision ENMT: Denies: throat pain, ear or mastoid pain or nasal discharge Card: Reports: edema; Denies: chest pain, palpitations, swelling of feet/ankles or lightheadedness Resp: Denies: dyspnea, productive cough or wheezing GI: Reports: bloating and other (Abdominal swelling); Denies: abdominal pain, nausea, vomiting, hematemesis, coffee ground emesis, diarrhea or constipation : Denies: flank pain, difficulty urinating, dysuria or urinary frequency Musc: Denies: neck pain, back pain or joint pain Skin/Breast: Reports: other (Jaundice); Denies: rash Neuro: Reports: dizziness; Denies: headache(s) or numbness in extremities PFSH ED PFSH: Medical History Congestive heart failure Psychiatric care Gout Immunization counseling Seropositive rheumatoid arthritis of multiple sites Hypertension Surgical History History of hernia repair Family History Mother Cancer breast Father Cancer non hodgkins lymphoma Other CAD (coronary artery disease) Diabetes Family history of premature coronary artery disease Denies family history of Rheumatoid arthritis Lupus Hyperlipidemia Chronic kidney disease (CKD) Lung disease Hypertension Stroke Social History Smoking and tobacco/nicotine status: never used tobacco/nicotine Alcohol intake: never Substance/Drug Use: never Lives independently: Yes Marital status: Single Number of children: 1 Current occupational status: retired Special jennifer needs: No Agree to transfusion: Yes Physical Exam Const: COMMON NORMALS: patient oriented x3, no limitations and alert ORIENTATION/CONSCIOUSNESS: Yes awake OTHER: Tired appearing, jaundice HENMT: OTHER: Dried blood to vertex of scalp, superficial laceration noted. No significant scalp tenderness. No raccoon eyes or [place] sign. There is dried blood noted to the right naris. Eye: COMMON NORMALS: Equal, round and reactive pupils present and EOMs intact bilaterally CONJUNCTIVA: Yes conjunctival abnormal positive bilateral conjunctival icterus PUPIL: Yes Equal, round and reactive pupils present Neck/C-Spine: COMMON NORMALS: full ROM and supple OTHER: No cervical spine tenderness to palpation, full range of motion Chest: COMMONS NORMALS: normal inspection of the chest Resp: COMMON NORMALS: normal respiratory effort, No retractions and No use of accessory muscles EFFORT & INSPECTION: Yes able to speak in complete sentences OTHER: Crackling at the lung bases, no audible wheezing or active respiratory distress noted Cardio: COMMON NORMALS: regular rate, regular rhythm, S1 normal heart sound present, S2 normal heart sound present, No murmurs present (Cardio) and No rub (Cardio) RATE: regular rate RHYTHM: regular rhythm HEART SOUNDS: S1 normal heart sound present and S2 normal heart sound present GI: COMMON NORMALS: non-tender INSPECTION: Yes Anasarca, Yes abdominal distension and Yes central obesity PALPATION: Yes Firmness to palpation present (GI) Extremity: NARRATIVE EXTREMITY EXAM: Bilateral ulcerated lesions to his shins, right worse than left. Purulence is soaking through active dressing, though there is no significant surrounding erythema at this time. Chronic peripheral edema bilaterally Neuro: COMMON NORMALS: patient oriented x3, moves all extremities, no focal motor deficits and no sensory deficits noted SENSORIUM/ORIENTATION: Yes alert Skin: NARRATIVE SKIN EXAM: See extremity exam, jaundice as noted Course Vital Signs: Vital signs: Vital Signs Temperature 98.2 F 06/10/24 17:59 Pulse Rate 91 06/10/24 19:06 Respiratory Rate 16 06/10/24 19:06 Blood Pressure 153/92 06/10/24 18:09 Pulse Oximetry 93 06/10/24 19:06 Oxygen Delivery Me thod Room Air 06/10/24 17:59 MDM - Dizziness Medical Decision Making This patient presented after being reportedly hospitalized for a month, was still awaiting results from stay at [facility] where he was transferred after being in the ICU here. Had pacemaker placed last week. On exam was jaundiced with some mild scleral icterus, he has chronic bilateral lower extremity ulcerations that he had stated have been worsening. He did not report any fevers, only complaint was generalized weakness with fall. He did hit his head, head CT did not demonstrate any intracranial abnormality here. He was alert and oriented rest of his neurological exam unremarkable, there was anasarca present did appear to be fluid overloaded with crackling at bilateral lung bases. Lactic elevated this time at 3.7, this could be secondary to his infections on his leg. He is started on Vanco and Zosyn. He is positive for flu A as well which could contribute to his increased weakness. Hemoglobin slightly decreased from prior, currently it is 10. His white blood cell count is normal, creatinine is improved from prior obtained over a month ago. BNP elevated to about 14,000, spoke with Dr. Whitt who agrees to accept the patient to [facility]. I also consulted Dr. Cervantes who will consult the patient for potential debridement as patient had reportedly been consulted with prior admission in April. Discussed this plan with the patient, he agrees all her questions and concerns addressed he is asking something for anxiety. I did discuss this case briefly with Dr. Spencer. Dr. Judd putting in admit orders at this time. Lab Data 06/10/24 18:20 06/10/24 18:[address] 06/10/24 18:07 IMPRESSION: 1. No acute intracranial abnormality. 2. Small-vessel ischemic disease. Chest X-Ray 06/10/24 18:08 IMPRESSION: There is a 4.5 cm rounded opacity projecting through the left lower lobe which may represent artifact from the left 6 anterior rib end; however, a true pulmonary lesion can not be excluded and a PA and lateral chest radiograph may help to confirm/exclude this finding. Laboratory Results WBC 6.98 10^3/uL (3.29-11.43) 06/10/24 18:20 RBC 4.27 10^6/uL (3.85-5.65) 06/10/24 18:20 Hgb 10.00 g/dL (11.27-16.99) L 06/10/24 18:20 Hct 33.5 % (37-53) L 06/10/24 18:20 MCV 78.5 fl (82-101) L 06/10/24 18:20 MCH 23.4 pg (27-33) L 06/10/24 18:20 MCHC 29.9 g/dL (30-55) L 06/10/24 18:20 RDW 27.2 % (12.1-15.1) H 06/10/24 18:20 Plt Count 330 10^3/cmm (157-399) 06/10/24 18:20 MPV 9.4 fL (7.4-10.4) 06/10/24 18:20 Neut % (Auto) 65.4 % 06/10/24 18:20 Lymph % (Auto) 16.3 % 06/10/24 18:20 Lipscomb % (Auto) 14.0 % 06/10/24 18:20 Eos % (Auto) 2.0 % 06/10/24 18:20 Baso % (Auto) 0.4 % 06/10/24 18:20 Neut # (Auto) 4.56 10^3/uL (1.8-7.7) 06/10/24 18:20 Lymph # (Auto) 1.1 10^3/uL (0.8-4.8) 06/10/24 18:20 Lipscomb # (Auto) 1.0 10^3/uL (0.2-0.9) H 06/10/24 18:20 Eos # (Auto) 0.1 10^3/uL (0.0-0.8) 06/10/24 18:20 Baso # (Auto) 0.0 10^3/uL (0.0-0.1) 06/10/24 18:20 Nucleated RBC % (auto) 0 % 06/10/24 18:20 Nucleated RBCs # 0.0 /100WBC 06/10/24 18:20 PT 15.60 SECONDS (12.1-14.9) H 06/10/24 18:20 INR 1.16 (0.8-1.2) 06/10/24 18:20 APTT 33.4 SECONDS (23.9-36.7) 06/10/24 18:20 Sodium 142 mmol/L (136-145) 06/10/24 18:20 Potassium 3.9 mmol/L (3.5-5.1) 06/10/24 18:20 Chloride 102 mmol/L (98-107) 06/10/24 18:20 Carbon Dioxide 28 mmol/L (22-29) 06/10/24 18:20 Anion Gap 15.9 (5-19) 06/10/24 18:20 BUN 23 mg/dL (8-23) 06/10/24 18:20 Creatinine 1.5 mg/dL (0.7-1.2) H 06/10/24 18:20 GFR Calculation 47.1 mL/min (90-130) L 06/10/24 18:20 Glucose 115 mg/dL (65-115) 06/10/24 18:20 Calculated Osmolality 299 mOsm/kg (285-295) H 06/10/24 18:20 Lactic Acid 3.7 mmol/L (0.5-2.2) H 06/10/24 18:20 Calcium 9.6 mg/dL (8.5-10.5) 06/10/24 18:20 Total Bilirubin 1.3 mg/dL (0.15-1.2) H 06/10/24 18:20 AST 40 U/L (0-40) 06/10/24 18:20 ALT 17 U/L (0-41) 06/10/24 18:20 Alkaline Phosphatase 192 U/L (40-130) H 06/10/24 18:20 NT-Pro-B Natriuret Pep 93084 pg/mL (0-125) H 06/10/24 18:20 Total Protein 6.3 g/dL (6.6-8.7) L 06/10/24 18:20 Albumin 3.3 g/dL (3.5-5.2) L 06/10/24 18:20 Globulin 3.0 g/dL (1.3-4.6) 06/10/24 18:20 Coronavirus (PCR) Negative (Negative) 06/10/24 18:20 Influenza A (PCR) Positive (Negative) 06/10/24 18:20 Influenza Type B (PCR) Negative (Negative) 06/10/24 18:20 RSV (PCR) Negative (Negative) 06/10/24 18:20 All radiology interpretation(s) finalized by discharge Discharge Plan Discharge Patient Disposition: Admitted As Inpatient Clinical Impression: Influenza A, Acute lactic acidosis Acute exacerbation of CHF (congestive heart failure) Qualifiers: Heart failure type: unspecified Qualified Code(s): I50.9 - Heart failure, unspecified Bilateral leg ulcer Qualifiers: Non-pressure ulcer stage: unspecified non-pressure ulcer stage Qualified Code(s): L97.919 - Non-pressure chronic ulcer of unspecified part of right lower leg with unspecified severity Condition: Stable Coding Level of Care Code ED Guest Request Runner for Hannah Redman
[2024-06-10 18:37] LABS: Basophils % 0.4 %; Eosinophils # 0.1 10^3/uL (0.0-0.8); Hematocrit 33.5 % (37-53); Lymphocytes # 1.1 10^3/uL (0.8-4.8); Lymphocytes % 16.3 %; Mean Corpuscular HGB Conc 29.9 g/dL (30-55); Mean Corpuscular Hemoglobin 23.4 pg (27-33); Mean Corpuscular Volume 78.5 fl (82-101); Mean Platelet Volume 9.4 fL (7.4-10.4); Neutrophils # 4.56 10^3/uL (1.8-7.7); Neutrophils % 65.4 %; Nucleated Red Blood Cells % 0 %; Platelet Count 330 10^3/cmm (157-399); Red Blood Count 4.27 10^6/uL (3.85-5.65); Red Cell Distribution Width 27.2 % (12.1-15.1); White Blood Count 6.98 10^3/uL (3.29-11.43)
[2024-06-10 18:55] LABS: INR 1.16 (0.8-1.2); Partial Thromboplastin Time 33.4 SECONDS (23.9-36.7)
[2024-06-10 18:58] LABS: Lactic Sepsis W/Reflex 3.7 mmol/L (0.5-2.2)
[2024-06-10 19:09] LABS: Alanine Aminotransferase 17 U/L (0-41); Albumin Level 3.3 g/dL (3.5-5.2); Alkaline Phosphatase 192 U/L (40-130); Anion Gap 15.9 (5-19); Aspartate Amino Transferase 40 U/L (0-40); Blood Urea Nitrogen 23 mg/dL (8-23); Calcium 9.6 mg/dL (8.5-10.5); Carbon Dioxide 28 mmol/L (22-29); Chloride 102 mmol/L (98-107); Creatinine Clr Calc Pharmacy 48.3374; Glomerular Filtration Rate 47.1 mL/min (90-130); Glucose 115 mg/dL (65-115); NT Pro B Type Natriuretic Pept 13689 pg/mL (0-125); Osmolality Calculated 299 mOsm/kg (285-295); Potassium 3.9 mmol/L (3.5-5.1); Sodium 142 mmol/L (136-145); Total Bilirubin 1.3 mg/dL (0.15-1.2); Total Protein 6.3 g/dL (6.6-8.7)
[2024-06-10 19:11] LABS: Influenza A POSITIVE (Negative); Influenza B NEGATIVE (Negative); Respiratory Syncytial Virus Ce NEGATIVE (Negative); SARS-CoV-2 PCR NEGATIVE (Negative)
--- NOTE | 2024-06-10 19:13 | ECG_ITS ---
[facility] 2024-[facility]10 Pat Name: Ely Hare Department: Room: Gender: Male Belt Measurer: : 1960 Requested By: Raymon Warren Order Number: [id number] Mario MD: Jose Antonio Head M.D. Measurements Intervals [place] Rate: 101 P: 43 SD: 149 QRS: 8 QRSD: 92 T: 91 QT: 373 QTc: 486 Interpretive Statements SINUS TACHYCARDIA LOW QRS VOLTAGE IN EXTREMITY LEADS [QRS DEFLECTION < 0.5 mV IN LIMB LEADS] NONSPECIFIC ST & T-WAVE ABNORMALITY Compared to ECG 04/26/2024 10:03:20 Low QRS voltage now present Sinus rhythm no longer present T-wave abnormality still present Electronically Signed On 06-13-2024 22:22:35 ADVANCED MANUFACTURING ENGINEER by Jose Antonio Head M.D. [email or web address]
[2024-06-10] MEDS: LORazepam 1 mg Tablet PO (19:41)
--- NOTE | 2024-06-10 19:41 | XRR_ITS ---
PROCEDURE INFORMATION: Exam: XR Chest Exam date and time: 06/10/2024 8:19 PM Age: 63 years old Clinical indication: Screening exam; Other screening; Additional info: Portable XR findings TECHNIQUE: Imaging protocol: Radiologic exam of the chest. Views: 2 views. COMPARISON: CR (CHEST, ) 06/10/2024 6:11 PM FINDINGS: Lungs: Unremarkable. No consolidation. Pleural spaces: Unremarkable. No pleural effusion. No pneumothorax. Heart/Mediastinum: Unremarkable. The heart is enlarged. Left-sided cardiac pacemaker device. Bones/joints: Unremarkable. XR/XR chest 2V* [id number] IMPRESSION: No acute findings.
[2024-06-10] MEDS: piperacillin-tazobactam 3.375 GM in sodium chloride 0.9% (plus) 50 ML IV (20:07)
[2024-06-10] MEDS: VANCOMYCIN ADD-Vantage 1,000 MG in 0.9% NaCl ADD-Vantage 250 ML 250 MG IV (20:14)
[2024-06-10 20:19] LABS: Reflex Lactate Order REFLEX LACTIC ORDERD
--- NOTE | 2024-06-10 20:25 | USR_ITS ---
PROCEDURE INFORMATION: Exam: US Duplex Lower Extremity Veins, Bilateral Exam date and time: 06/10/2024 10:10 PM Age: 63 years old Clinical indication: Edema, localized; Lower extremity, bilateral; Additional info: Swelling swelling TECHNIQUE: Imaging protocol: Real-time duplex ultrasound of the bilateral extremities with 2-D castellon scale, color Doppler flow and spectral waveform analysis including responses to compression and other maneuvers (when performed) with image documentation. Complete exam focused on the lower extremity veins. COMPARISON: CR XR foot LT min 3V* [id number] 06/02/2022 11:44 AM FINDINGS: Right deep veins: Unremarkable. The common femoral, femoral, proximal profunda femoral and popliteal veins are patent without thrombus. Normal Doppler waveforms. Normal compressibility and/or augmentation response. Left deep veins: Unremarkable. The common femoral, femoral, proximal profunda femoral and popliteal veins are patent without thrombus. Normal Doppler waveforms. Normal compressibility and/or augmentation response. Superficial veins: Greater saphenous veins at the saphenofemoral junctions are patent bilaterally without thrombus. Soft tissues: Pitting edema of the bilateral lower extremities with large open ulcerations noted by the parent educator on both calfs.. US/[place] [id number] IMPRESSION: 1. No evidence of deep vein thrombosis in the bilateral lower extremities. 2. Pitting edema of the bilateral lower extremities with large open ulcerations noted by the parent educator on both calfs.
--- NOTE | 2024-06-10 20:44 | P.HP_ITS ---
Providers/Chief Complaint 2 Primary Care Provider: Itz Pierson MD Chief Complaint: dizziness, falls History of Present Illness Ely Hare is a 63 year old male with history of reduced ejection fraction EF 30%, third-degree heart block status post pacemaker placement 2 weeks ago at [facility], patient was transferred from our facility, patient was getting cardiac care at [facility], lives alone there is a caregiver who helps him out on daily basis, presented today with chief complaint of generalized weakness, fatigue, recurrent falls. Patient is stating that pacemaker was placed 2 weeks ago, during hospitalization he had left second toe amputation done as well, he was discharged with linezolid and levofloxacin. He is not endorsing taking any diuretics. He has not noticed any chest pain but endorsing shortness of breath apnea PND significant weakness. He has not been able to use his walker secondary to worsening of swelling of his feet. He has not been changing the dressing of the wound. Patient is stating that he is diabetic and takes metformin. Workup in the ER revealed chronic kidney disease, chronic anemia, lactic acidemia, patient is afebrile, has anasarca, not requiring oxygen, Hypomagnesemia: BNP 13,000 Procalcitonin is not remarkable Previous MRSA nares + 04/26/2024 06/10/2024 influenza A positive Patient is stating that he felt multiple times secondary to losing balance and inability to walk, patient is not sure if he had syncopal event but stating that his falls are related to losing balance, no recent chest pain, fever, diarrhea Patient is not a candidate to receive IV fluid bolus secondary to anasarca He had received antibiotics, Review of Systems 2 Const: Reports: chills and change in weight Eyes: Denies: change in vision ENMT: Denies: throat pain Card: Reports: swelling of feet/ankles Resp: Reports: dyspnea GI: Reports: nausea Skin/Breast: Reports: rash, non-healing lesions and lesions Medications/Allergies Home Medications Medication Instructions Recorded Confirmed Last Taken Type docusate sodium 100 mg capsule 100 mg PO BID #14 caps 11/14/22 04/24/24 Unknown Rx (Colace) carvedilol 6.25 mg tablet 6.25 mg PO BID 04/24/24 04/24/24 Unknown History sacubitril 24 mg-valsartan 26 mg 1 tab PO BID 04/24/24 04/24/24 Unknown History tablet (Entresto) Allergies Allergy/AdvReac Type Severity Reaction Status Date / Time No Known Allergies Allergy Verified 01/22/24 17:16 PFSH Acute 2 PFSH: Medical History (Updated 06/10/24 @ 21:07 by Tom Whitt MD) Third degree heart block Status post pacemaker placement, 2024 [facility] Congestive heart failure Psychiatric care Gout Immunization counseling Seropositive rheumatoid arthritis of multiple sites Hypertension Surgical History History of hernia repair Family History Mother Cancer breast Father Cancer non hodgkins lymphoma Other CAD (coronary artery disease) Diabetes Family history of premature coronary artery disease Denies family history of Rheumatoid arthritis Lupus Hyperlipidemia Chronic kidney disease (CKD) Lung disease Hypertension Stroke Social History Smoking and tobacco/nicotine status: never used tobacco/nicotine Alcohol intake: never Substance/Drug Use: never Lives independently: Yes Marital status: Single Number of children: 1 Current occupational status: retired Special jennifer needs: No Agree to transfusion: Yes Vitals/I&O/Wt Last Vital Signs Temp 98.2 F 06/10/24 17:59 Pulse 98 06/10/24 20:40 Resp 18 06/10/24 20:40 BP 149/112 06/10/24 20:40 Pulse Ox 95 06/10/24 20:40 O2 Del Method Room Air 06/10/24 17:59 Weight last 48 hrs Weight 72.575 kg Physical Exam 2 Narrative: Anasarca Morbidly obese Bilateral breath sounds with rhonchi No audible stridor or wheezing Currently room air Hemodynamic stable Hypertensive Distended abdomen Anasarca lower extremity edema 3+ extending all the way up abdominal wall Multiple wounds on his lower extremities Large venous stasis ulcer with purulent cellulitis: Right leg with purulent base and macerated edges foul-smelling discharge Unkept appearance Left foot surgical site has sutures, has dirt all over his feet Left lower extremity cellulitis Significant swelling of genitalia I do not see any signs of Timmy's gangrene Awake and alert AO x 4 Data 06/10/24 18:20 02/03/25 18:20 Micro: Microbiology 06/10/24 20:08 Blood Culture - Preliminary Blood SPECIMEN COLLECTED 06/10/24 20:06 Blood Culture - Preliminary Blood SPECIMEN COLLECTED A&P Assessment and plan (1) Gout: Qualifiers: Gout site: toe Gout etiology: unspecified cause Chronicity: chronic L aterality: right Presence of tophus: without tophus Qualified Code(s): M 1A.9XX0 - Chronic gout, unspecified, without tophus (tophi) (2) Open wound of both lower extremities: (3) Bilateral leg ulcer: Qualifiers: Non-pressure ulcer stage: unspecified non-pressure ulcer stage Qualified Code(s): L97.919 - Non-pressure chronic ulcer of unspecified part of right lower leg with unspecified severity; L97.929 - Non-pressure chronic ulcer of unspecified part of left lower leg with unspecified severity (4) Lower extremity edema: (5) Anasarca: (6) Acute exacerbation of CHF (congestive heart failure): Qualifiers: Heart failure type: unspecified Qualified Code(s): I50.9 - Heart failure, unspecified (7) Hypertension: Qualifiers: Hypertension type: primary hypertension Qualified Code(s): I10 - Essential (primary) hypertension (8) Type 2 diabetes mellitus: Qualifiers: Diabetes mellitus complication detail: with peripheral angiopathy without gangrene Diabetes mellitus complication status: with circulatory complication Diabetes mellitus laborer marine terminal insulin use: without laborer marine terminal use Qualified Code(s): E11.51 - Type 2 diabetes mellitus with diabetic peripheral angiopathy without gangrene (9) BMI 37.0-37.9, adult: (10) History of hernia repair: (11) Acute kidney injury: (12) Acute lactic acidosis: (13) Bilateral cellulitis of lower leg: (14) Influenza A: (15) Seropositive rheumatoid arthritis of multiple sites: Plan Acute systolic CHF exacerbation EF 30% Anasarca Morbid obese Noncompliant Start patient on IV diuretic regimen Place Marsh catheter Patient was getting cardiac care at [facility] We have requested records from [facility] where he was transferred for third-degree AV block, as per the patient he received a pacemaker 2 weeks ago, pacemaker site unremarkable with good recovery and healing of wound Patient is stating that he does not use any diuretics at home Bilateral lower extremity venous stasis ulcer/purulent cellulitis Patient is diabetic Does not show any sign of vascular compromise Significant anasarca Start patient on linezolid and Zosyn As per the patient his left second toe was amputated at [facility] recently He does have unkept appearance Will use Santyl dressing, apply bacitracin, Patient will need debridement of the wound will consult general surgery Dr. Cervantes has been notified We will keep patient n.p.o. after midnight in case he goes for debridement in the morning High lactic acid: Patient is afebrile, metformin reduced? No leukocytosis, procalcitonin unremarkable Patient is hypertensive Not complaining abdominal pain No significant endorgan damage Patient not a candidate to receive IV fluids because of anasarca Antibiotics administered, blood cultures taken Hypomagnesemia: IV mag given Chronic kidney disease: Creatinine seems to be around baseline Abnormal D-dimer: Will request venous Doppler Patient is not requiring oxygen, he is not tachycardic Not a candidate for CTA chest secondary to creatinine 1.5 Rule out thromboembolic disease Patient is high risk Influenza A: Patient is stating that he uses oxygen as needed basis, currently on room air saturating well Conservative management for now Goals of care discussed with the patient, full code In case he is not able to make decisions stating that we should talk with his son I have recommended fdc placement because at home he is doing poorly, patient is not sure whether he would opt for it Cardiac diet, n.p.o. after midnight in case goes for debridement in the morning Hypertensive: Optimize antihypertensive regimen History of gout: No acute flare DVT prophylaxis: Heparin Attestations 2 Medical Necessity Statement*: More than 2 midnights anticipated Diagnoses Chronic gout involving toe of right foot without tophus, unspecified cause M1A.9XX0 Gout site: toe Gout etiology: unspecified cause Chronicity: chronic Laterality: right Presence of tophus: without tophus Open wound of both lower extremities S81.801A; S81.802A Ulcers of both lower extremities, unspecified ulcer stage L97.919; L97.929 Non-pressure ulcer stage: unspecified non-pressure ulcer stage Lower extremity edema R60.0 Anasarca R60.1 Acute exacerbation of CHF (congestive heart failure) I50.9 Heart failure type: unspecified Primary hypertension I10 Hypertension type: primary hypertension Type 2 diabetes mellitus with diabetic peripheral angiopathy without gangrene, without long-term current use of insulin E11.51 Diabetes mellitus complication detail: with peripheral angiopathy without gangrene Diabetes mellitus complication status: with circulatory complication Diabetes mellitus laborer marine terminal insulin use: without laborer marine terminal use BMI 37.0-37.9, adult Z68.37 History of hernia repair Z98.890; Z87.19 Acute kidney injury N17.9 Acute lactic acidosis E87.21 Bilateral cellulitis of lower leg L03.116; L03.115 Influenza A J10.1 Seropositive rheumatoid arthritis of multiple sites M05.79
[2024-06-10 20:49] LABS: D Dimer 3.73 ug/mLFEU (0-0.59)
[2024-06-10 20:52] LABS: Estmated Average Glucose 140; Hemoglobin A1C 6.5 % (4.0-6.0)
[2024-06-10 20:53] LABS: Magnesium 1.6 mg/dL (1.7-2.3)
[2024-06-10 21:00] LABS: Procalcitonin 0.08 ng/mL (0-0.5)
[2024-06-10] MEDS: magnesium sulfate premix 1 GM/100 ML PIGGYBACK IV (21:36)
[2024-06-10] MEDS: heparin 5,000 unit/mL INJ 1 mL 5000 UNIT SUBCUT (21:37)
[2024-06-10] MEDS: FUROsemide 10 mg/mL SDV 10mL 60 MG IVP (21:37)
[2024-06-10 21:44] LABS: ABG PCO2 41.8 mmHg (35-45); ABG PH Result 7.44 (7.35-7.45); Arterial Blood Gas Hematocrit 32.3 % (42-52); Base Excess ABG 3.6 mmol/L (-2.0-2.0); Blood Gas Sample Site Brachial, right; Blood Gas Sample Type Arterial; HCO3 ABG 28.2 mmol/L (22-26); Oxygen Device ROOM AIR; PO2 ABG 68.2 mmHg (80.0-100.0)
[2024-06-10 21:45] LABS: Bilirubin Urine Negative (Negative); Blood Urine Negative (Negative); Glucose Urine UA Negative (Normal); Ketones Urine Negative (Negative); Leukocyte Esterase Urine 1+ (Negative); Nitrate Urine Negative (Negative); Protein Urine 1+ (Negative); Specific Gravity, Urine 1.016 (1.005-1.030); Urine Appearance Clear (CLEAR); Urine Color Yellow (Yellow); Urobilinogen Urine 0.2 mg/dL (Negative)
[2024-06-10 21:50] LABS: Add Urine Microscopic? YES; Bacteria Urine None Seen /hpf; Hyaline Casts Urine 0.81 /lpf; RBC Urine 0-2 /hpf (0-2); Squamous Epithelial Cell Urine 0-5 /hpf (0-5); WBC Urine 0-5 /hpf (0-5)
[2024-06-10 22:01] LABS: Lactic Acid level (Lactate) 2.7 mmol/L (0.5-2.2)
[2024-06-10] MEDS: levoFLOXacin 750 mg Tablet PO (22:03)
[2024-06-10] MEDS: metOLazone 5 MG Tablet PO (22:03)
[2024-06-10 22:17] LABS: Add Urine Culture? Yes; UA Slide Review UA Slide Review Perf
[2024-06-10 22:25] LABS: Anion Gap 13.8 (5-19); Blood Urea Nitrogen 21 mg/dL (8-23); Calcium 8.4 mg/dL (8.5-10.5); Carbon Dioxide 25 mmol/L (22-29); Chloride 107 mmol/L (98-107); Creatinine Clr Calc Pharmacy 60.4218; Glucose 112 mg/dL (65-115); Osmolality Calculated 298 mOsm/kg (285-295); Potassium 3.8 mmol/L (3.5-5.1); Sodium 142 mmol/L (136-145)
--- NOTE | 2024-06-10 22:54 | PC.NURSE ---
This nurse completed wound care on bilateral lower extremities, ordered ointment is not available, spoke to hospitalist about ointment not in stock and received orders to complete wound wash of wounds and cover with abd pads and kerlex. Pt skin is very dirty and has large amount of soiling over left second toe amputation site, as much dirt was removed as possible without reopening surgical site.
[2024-06-10 23:36] LABS: 25 Hydroxy Vitamin D 15 ng/mL (30-100)
[2024-06-11] VITALS (62 sets, daily range): BP systolic 96–179; BP diastolic 65–120; PULSE 66–127; RESP 7–32; TEMP 35.6–37.1; O2SAT 65–100; BMI 36.1
[2024-06-11] MEDS: oxyCODONE-APAP 5-325 mg Tablet 1 TAB PO ×2 (00:41→08:48)
[2024-06-11] MEDS: hyDRALAzine 20 mg/mL INJ 1 mL 10 MG IVP (02:45)
[2024-06-11] MEDS: piperacillin-tazobactam 3.375 GM in sodium chloride 0.9% (plus) 50 ML IV ×3 (03:00→20:39)
[2024-06-11 06:20] LABS: Glucose Point of Care 362 mg/dL (70-110)
[2024-06-11 08:01] LABS: Basophils % 0.4 %; Eosinophils # 0.2 10^3/uL (0.0-0.8); Eosinophils % 1.7 %; Hematocrit 34.7 % (37-53); Lymphocytes % 10.6 %; Mean Corpuscular HGB Conc 30.3 g/dL (30-55); Mean Corpuscular Hemoglobin 23.4 pg (27-33); Mean Corpuscular Volume 77.5 fl (82-101); Mean Platelet Volume 9.4 fL (7.4-10.4); Monocytes # 1.3 10^3/uL (0.2-0.9); Monocytes % 13.3 %; Neutrophils # 6.99 10^3/uL (1.8-7.7); Neutrophils % 72.6 %; Nucleated Red Blood Cells % 0 %; Platelet Count 323 10^3/cmm (157-399); Red Blood Count 4.48 10^6/uL (3.85-5.65); Red Cell Distribution Width 27.6 % (12.1-15.1); White Blood Count 9.62 10^3/uL (3.29-11.43)
[2024-06-11 08:17] LABS: Anion Gap 15.5 (5-19); Blood Urea Nitrogen 20 mg/dL (8-23); C Reactive Protein 21.2 mg/L (0.0-4.9); Calcium 9.2 mg/dL (8.5-10.5); Carbon Dioxide 29 mmol/L (22-29); Chloride 103 mmol/L (98-107); Creatinine Clr Calc Pharmacy 70.5371; Glomerular Filtration Rate 55.6 mL/min (90-130); Glucose 113 mg/dL (65-115); Osmolality Calculated 301 mOsm/kg (285-295); Potassium 3.5 mmol/L (3.5-5.1); Sodium 144 mmol/L (136-145)
[2024-06-11] MEDS: insulin lispro 100 unit/1 mL SUBCUT (08:20)
[2024-06-11] MEDS: carvedilol 6.25 mg Tablet PO (08:21)
[2024-06-11] MEDS: potassium chloride ER 20 mEq Tablet PO (08:21)
[2024-06-11] MEDS: heparin 5,000 unit/mL INJ 1 mL 5000 UNIT SUBCUT ×2 (08:21→20:40)
[2024-06-11] MEDS: pantoprazole DR 40 mg Tablet PO ×2 (08:21→18:12)
[2024-06-11] MEDS: hyDRALAzine 25 mg Tablet PO (08:21)
[2024-06-11] MEDS: FUROsemide 10 mg/mL SDV 10mL 60 MG IVP (08:21)
[2024-06-11] MEDS: sennosides-docusate Tablet 1 TAB PO (08:21)
[2024-06-11] MEDS: metOLazone 5 MG Tablet PO (08:22)
[2024-06-11] MEDS: linezolid premix 600 MG/300 ML PREMIX 300 MG IV ×2 (08:22→21:12)
[2024-06-11] MEDS: LORazepam 0.5 mg Tablet PO (08:37)
--- NOTE | 2024-06-11 10:24 | PC.CHAP ---
Pastoral Care Encounter/Spiritual Assessment Type of Contact [] Declined marketing operations consultant visit [] Patient/Family/Request visit [] Outpatient visit [] Follow-up visit [] Physician referral [] Code/Alert [] Routine visit [] Staff referral [] Actively dying [] Patient sleeping [] Family support [] [] Out of room [] Palliative care [] [] Receiving care in room [] Pre-surgical visit [] Trauma [] Long length of stay [] ICU visit [x] Other:Contact precautions. No visit. Relational/Emotional Strength [] Patient feels connected with others/family/visitors/staff [] Distress [] Loneliness/isolation [] Abandonment Spirituality of Patient [] Person of Mar [] Attends Spiritism of their Mar [] Believes in Prayer [] Reads Bible or Temple materials [] There are Spiritual issues to be addressed Piano Tuner Interventions [] Prayer [] Active listening [] Non-anxious presence [] Spiritual/emotional support [] Crisis/trauma care [] Spiritual counseling [] Bereavement support [] Provided bereavement packet [] Provided Bible/devotional materials [] Provided toy/stuffed animal, coloring book to patient or family member [] Provided Communion [] Anointing/[facility] [] Salvation [] Completed spiritual assessment [] Other: Impact on Illness or Injury [] Angry [] Fearful [] Anxious [] Often cries [] Exhaustion [] Unable to work [] Unable to attend catholic [] Unable to walk/stand [] Unable to read [] Unable to drive [] Unable to eat/drink [] Unable to sleep [] Unable to be with family [] Patient intubated [] Other: Summary Time spent with patient
--- NOTE | 2024-06-11 11:23 | USCV_ITS ---
Ely Hare Age: 63 Gender: M : 1960 Exam Date: 06/11/2024 14:30 Ordering Phys: Ashish Ortiz MD Technologist: Exam Location: [facility] Indication: ef BP: 132 / 67 HR: Rhythm: Sinus Technical Quality: Adequate MEASUREMENTS (Male / Female) Normal Values 2D ECHO LV Diastolic Diameter PLAX 6.5 cm 4.2 - 5.9 / 3.9 - 5.3 cm IVS Diastolic Thickness 1.3 cm 0.6 - 1.0 / 0.6 - 0.9 cm IVS Systolic Thickness 1.4 cm LVPW Diastolic Thickness 1.8 cm 0.6 - 1.0 / 0.6 - 0.9 cm LVPW Systolic Thickness 1.6 cm LVOT Diameter 2.0 cm LV Ejection Fraction 2D Teich 10.7 % LV Ejection Fraction MOD 4C 40.0 % LV Ejection Fraction MOD 2C 45.6 % LV Ejection Fraction 2C AL 45.3 % LA Diameter 4.7 cm RA Systolic Volume 4C AL 103.4 ml RA Systolic Volume 4C MOD 94.1 ml Aorta at Sinotubular Diameter 3.4 cm FINDINGS Left Ventricle Moderately increased left ventricular cavity size. Severely decreased left ventricular systolic function. Left ventricular ejection fraction is estimated at 15 %. Right Ventricle Right Atrium Moderately increased right atrial size. Left Atrium Moderately increased left atrial size. Mitral Valve Aortic Valve Tricuspid Valve Pulmonic Valve Pericardium Aorta IVC CONCLUSIONS Limited echo Moderately increased left ventricular cavity size. Severely decreased left ventricular systolic function. Left ventricular ejection fraction is estimated at 15 %. Moderate biatrial enlarment There is no pericardial effusion. Tom Martinez MD (Electronically Signed) Final Date: 11 June 2024 19:44 S
[2024-06-11 11:32] LABS: Erythrocyte Sedimentation Rate 1 mm/hr (0-10)
[2024-06-11] MEDS: glucagon 1 mg/mL KIT 1 mL IM (11:47)
[2024-06-11 11:49] LABS: Anion Gap 14.7 (5-19); Blood Urea Nitrogen 20 mg/dL (8-23); Calcium 9.1 mg/dL (8.5-10.5); Carbon Dioxide 29 mmol/L (22-29); Chloride 102 mmol/L (98-107); Creatinine Clr Calc Pharmacy 65.4987; Glucose 40 mg/dL (65-115); Osmolality Calculated 293 mOsm/kg (285-295); Potassium 3.7 mmol/L (3.5-5.1); Sodium 142 mmol/L (136-145)
[2024-06-11 11:55] LABS: Glucose Point of Care 40 mg/dL (70-110)
--- NOTE | 2024-06-11 12:24 | PC.NURSE ---
At 11 am blood sugar check, patient's bp was found to be 40. Blood sugar rechecked 10 min later and it was 73. Patient still remains lethargic. D10 125mg over 10 min infused per protocol. Dr Ortiz notified. Patient temperature rectally was 95.5 and blood pressure started 90s/60s but lindsay to 116/76. Nurse concerned about septic shock. Dr Ortiz thought it was rather the fact that we had removed 11L off patient. Patient is currently resting in bed (snoring.) Heart rate is 70, o2 at [address] Ortiz ordered blood pressures every 15 min and continue to monitor patient.
--- NOTE | 2024-06-11 12:56 | PM.CONSULT ---
Providers/Reason For Consult Consulting Physician/Specialty*: Dr. Francisco Javier Cervantes, DO/General Surgery Reason for Consult*: Bilateral lower extremity wounds Attending Physician: Ashish Ortiz MD Primary Care Provider: Itz Pierson MD History of Present Illness History of Present Illness Ely Hare is a 63 year old male, with an extensive cardiac history, who presented to the ER with chronic venous stasis ulcers of his lower extremities and frequent falls. He has a diagnosis of influenza. Currently he is moaning and not answering any questions. HPI and review of systems are limited secondary to this Review of Systems General: Reports: ROS unobtainable due to medical condition Medications/Allergies Home Medications ?Medication ?Instructions ?Recorded ?Confirmed ?Last Taken ?Type docusate sodium 100 mg capsule 100 mg PO BID #14 caps 11/14/22 06/11/24 Unknown Rx (Colace) carvedilol 6.25 mg tablet 6.25 mg PO BID 04/24/24 06/11/24 Unknown History sacubitril 24 mg-valsartan 26 mg 1 tab PO BID 04/24/24 06/11/24 Unknown History tablet (Entresto) Allergies Allergy/AdvReac Type Severity Reaction Status Date / Time No Known Allergies Allergy Verified 01/22/24 17:16 Current Medications Generic Name Dose Route Start Last Admin Trade Name Freq PRN Reason Stop Dose Admin Bacitracin 1 applic 06/10/24 22:19 06/10/24 22:54 Bacitracin Ointment 28 Gm TOPICAL Not Given TID [facility] Protocol Carvedilol 6.25 mg 06/11/24 09:00 06/11/24 08:21 Carvedilol 6.25 Mg Tablet PO 6.25 mg BID AMBER Administration Heparin Sodium (Porcine) 5,000 unit 06/10/24 20:25 06/11/24 08:21 Heparin 5,000 Unit/Ml Inj 1 Ml SUBCUT 5,000 unit Q12H AMBER Administration Hydralazine HCl 25 mg 06/11/24 09:00 06/11/24 08:21 Hydralazine 25 Mg Tablet PO 25 mg BID AMBER Administration Hydralazine HCl 10 mg 06/10/24 21:40 06/11/24 02:45 Hydralazine 20 Mg/Ml Inj 1 Ml IVP 10 mg Q4H PRN Administration bp>180/100 Linezolid 600 mg in 300 mls @ 300 mls/hr 06/11/24 09:00 06/11/24 10:52 Zyvox Premix IV Infused Q12H AMBER Infusion Protocol Piperacillin Sod/Tazobactam 50 mls @ 12.5 mls/hr 06/11/24 04:00 06/11/24 07:43 Sod 3.375 gm/ Sodium Chloride IV Infused Q8H AMBER Infusion Insulin Human Lispro 0 unit 06/11/24 08:00 06/11/24 08:20 Insulin Lispro 100 Unit/1 Ml SUBCUT 14 unit TIDWM AMBER Administration Protocol Levofloxacin 750 mg 06/10/24 21:45 06/10/24 22:03 Levofloxacin 750 Mg Tablet PO 750 mg Q48H AMBER Administration Protocol Lorazepam 0.5 mg 06/11/24 00:22 06/11/24 08:37 Lorazepam 0.5 Mg Tablet PO 0.5 mg TID PRN Administration ANXIETY Metolazone 5 mg 06/10/24 21:45 06/11/24 08:22 Metolazone 5 Mg Tablet PO 5 mg BID AMBER Administration Pantoprazole Sodium 40 mg 06/11/24 09:00 06/11/24 08:[address] 40 Mg Tablet PO 40 mg BID AMBER Administration Potassium Chloride 20 meq 06/11/24 09:00 06/11/24 08:21 Potassium Chloride Er 20 Meq Tablet PO 20 meq DAILY AMBER Administration Senna/Docusate Sodium 1 tab 06/11/24 09:00 06/11/24 08:21 Sennosides-Docusate Tablet PO 1 tab DAILY AMBER Administration PFSH Acute PFSH: Medical History Third degree heart block Status post pacemaker placement, 2024 [facility] Congestive heart failure Psychiatric care Gout Immunization counseling Seropositive rheumatoid arthritis of multiple sites Hypertension Surgical History History of hernia repair Family History Mother Cancer breast Father Cancer non hodgkins lymphoma Other CAD (coronary artery disease) Diabetes Family history of premature coronary artery disease Denies family history of Rheumatoid arthritis Lupus Hyperlipidemia Chronic kidney disease (CKD) Lung disease Hypertension Stroke Social History Smoking and tobacco/nicotine status: never used tobacco/nicotine Alcohol intake: never Substance/Drug Use: never Lives independently: Yes Marital status: Single Number of children: 1 Current occupational status: retired Special jennifer needs: No Agree to transfusion: Yes Vitals/I&O/Wt Last Vital Signs Temp 96.0 F L 06/11/24 11:56 Pulse 74 06/11/24 11:56 Resp 14 06/11/24 11:56 BP 96/65 06/11/24 11:56 Pulse Ox 93 06/11/24 11:56 O2 Del Method Room Air 06/11/24 11:56 06/10/24 06/11/24 06/11/24 22:59 06:59 14:59 Intake Total 400 / 400 350 / 350 Output Total 1300 / 1300 8000 / 9300 Balance -900 / -900 -8000 / -8900 350 / 350 Weight last 48 hrs Weight 245 lb Weight 245 lb Weight 160 lb Physical Exam Narrative: General : Patient is well developed , patient is only moaning and not answering questions therefore not oriented Head : Normal cephalic, a-traumatic. Ears : Pinnae and external canal are normal. Hearing is normal. Eyes : PERRLA, Sclera and injection are normal. No conjunctival discharge. Nose : Mucous membranes are without erythema. Throat : buccal mucosa is normal, gums are without significant recession or hypertrophy. Lungs : Equal chest rise bilaterally, no use of accessory muscles, trachea is midline. Cor : Rate and rhythm are normal. Abdomen : Soft, ND, NT, no g/r/m Extremities : There are venous stasis ulcers on his bilateral legs which are chronic in nature and covered by fibrinous exudate with minimal erythema Back : non-tender to palpation, no CVA tenderness. Neuro : CN II - XII intact, Upper and lower extremities have equal and full strength Urinary Catheter Management: Marsh: Cath Placed During This Visit: yes Reason for Continuing Indwelling Catheter: Acute Urinary Retention or Obstruction Urinary Catheter Date of Insertion: 06/10/24 Urinary Catheter Time of Insertion: 21:38 Data 06/12/24 03:27 06/12/24 03:27 Micro: Microbiology 06/10/24 20:08 Blood Culture - Preliminary Blood SPECIMEN COLLECTED 06/10/24 20:06 Blood Culture - Preliminary Blood SPECIMEN COLLECTED A&P Assessment and plan (1) Venous stasis ulcers of both lower extremities: Plan I was unable to get a hold of the son, who is next of kin, for consent today. We will continue trying and keep him n.p.o. after midnight for Sharp excisional debridement of left lower extremity Sharp excisional debridement of right lower extremity Note-we were able to get a hold of the son later on in the day. The risk benefits of the procedure, including but limited to, bleeding, scar, numbness, pain, recurrent infection, need for further surgery potentially resulting in amputation, were explained. He is understand the risks and wished to proceed PDMP PDMP Reviewed: Not Reviewed Coding Level of Care Code 21679 Diagnoses Venous stasis ulcers of both lower extremities I83.019; I83.029; L97.919; L97.929
[2024-06-11 13:38] LABS: Glucose Point of Care 109 mg/dL (70-110)
[2024-06-11 13:38] LABS: Glucose Point of Care 73 mg/dL (70-110)
--- NOTE | 2024-06-11 13:49 | ECG_ITS ---
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 Measurements Intervals [place] Rate: 73 P: 23 CO: 144 QRS: 40 QRSD: 97 T: 119 QT: 403 QTc: 445 Interpretive Statements SINUS RHYTHM LOW QRS VOLTAGE IN EXTREMITY LEADS [QRS DEFLECTION < 0.5 mV IN LIMB LEADS] NONSPECIFIC T-WAVE ABNORMALITY Compared to ECG 06/10/2024 19:13:35 Sinus tachycardia no longer present T-wave abnormality still present Electronically Signed On 06-13-2024 22:02:48 CREATIVE SERVICES DESIGNER by Jose Antonio Head M.D. [email or web address]
[2024-06-11 14:44] LABS: Troponin(5th) Baseline 63 ng/L (0-15)
[2024-06-11] MEDS: midodrine 5 mg TABLET 10 MG PO ×3 (14:47→23:33)
[2024-06-11] MEDS: morphine 4 mg/mL SDV 1 mL 2 MG IVP (14:51)
--- NOTE | 2024-06-11 14:57 | PC.NURSE ---
per Dr Cervantes, dress wound with santyl and cover.
--- NOTE | 2024-06-11 16:55 | PM.PN ---
Subjective Subjective: - Patient was seen this morning, he is alert to person,, not to place, not to time -He has diffuse edema, abdominal wall edema lower extremity edema 3+ pitting edema -He is on 1 L -Blood pressures are soft but MAP is around 65 -Heart rates in the 70s -He does awaken, but easily falls asleep, diffusely encephalopathic -At new time, patient's blood pressures have become soft MAP is 60-65, will avoid fluid given concerns for heart failure, order given for midodrine, -Blood pressures remain soft, moved to ICU consider pressor treatment he is -12 L so far -Was found to be flu positive started on Tamiflu -Due to hypotension, concerns for septic shock will moved to ICU but I think his hypotension is likely from diuresis hold Lasix and metolazone, blood pressure medications held Vitals/I&O/Wt Last Vital Signs Temp 96.0 F L 06/11/24 11:56 Pulse 74 06/11/24 11:56 Resp 20 H 06/11/24 14:51 BP 96/65 06/11/24 11:56 Pulse Ox 94 06/11/24 14:51 O2 Del Method Room Air 06/11/24 11:56 06/11/24 06/11/24 06/11/24 06:59 14:59 22:59 Intake Total 350 / 350 Output Total 8000 / 9300 3200 / 3200 Balance -8000 / -8900 -2850 / -2850 Weight last 48 hrs Weight 111.13 kg Weight 111.13 kg Weight 72.575 kg Physical Exam Const: COMMON NORMALS: no acute distress ORIENTATION/CONSCIOUSNESS: Yes awake, Yes oriented to person and Yes confused; not oriented to place and not oriented to time HENMT: COMMON NORMALS: normocephalic HEAD & SCALP: normocephalic Eye: COMMON NORMALS: Equal, round and reactive pupils present PUPIL: Yes Equal, round and reactive pupils present Neck/C-Spine: COMMON NORMALS: no JVD Resp: COMMON NORMALS: normal respiratory effort, No retractions and No use of accessory muscles AUSCULTATION: crackles and wheezes Cardio: COMMON NORMALS: no JVD, regular rate, regular rhythm, S1 normal heart sound present and S2 normal heart sound present RATE: regular rate RHYTHM: regular rhythm HEART SOUNDS: S1 normal heart sound present and S2 normal heart sound present GI: OTHER: Abdomen is soft, distended, has abdominal wall edema, no guarding, no rebound, rigidity, good bowel sounds Extremity: COMMON NORMALS: capillary refill normal, no clubbing, cyanosis or edema, no calf tenderness and no pedal edema Neuro: SENSORIUM/ORIENTATION: Yes oriented to person, No oriented to place and No oriented to time Psych: COMMON NORMALS: mental status grossly normal Skin: NARRATIVE SKIN EXAM: Left leg multiple wounds, largest measuring 1 x 1 cm, crater like lesion Right leg large 5 x 5 cm crater like lesion, serosanguineous drainage Urinary Catheter Management: Marsh: Cath Placed During This Visit: yes Reason for Continuing Indwelling Catheter: Acute Urinary Retention or Obstruction Urinary Catheter Date of Insertion: 06/10/24 Urinary Catheter Time of Insertion: 21:38 Sepsis: Is patient septic: Yes Focused sepsis exam performed: Yes Focused sepsis exam: DP PT pulses palpable, cap refill greater than 2 seconds, no mottling Date exam was performed: 06/11/24 Time exam was performed: 09:00 Data 06/11/24 07:37 06/11/24 11:00 Micro: Microbiology 06/10/24 20:08 Blood Culture - Preliminary Blood SPECIMEN COLLECTED 06/10/24 20:06 Blood Culture - Preliminary Blood SPECIMEN COLLECTED A&P Assessment and plan (1) Gout: Qualifiers: Gout site: toe Gout etiology: unspecified cause Chronicity: chronic Laterality: right Presence of tophus: without tophus Qualified Code(s): M1A.9XX0 - Chronic gout, unspecified, without tophus (tophi) (2) Open wound of both lower extremities: (3) Bilateral leg ulcer: Qualifiers: Non-pressure ulcer stage: unspecified non-pressure ulcer stage Qualified Code(s): L97.919 - Non-pressure chronic ulcer of unspecified part of right lower leg with unspecified severity; L97.929 - Non-pressure chronic ulcer of unspecified part of left lower leg with unspecified severity (4) Lower extremity edema: (5) Anasarca: (6) Acute exacerbation of CHF (congestive heart failure): Qualifiers: Heart failure type: unspecified Qualified Code(s): I50.9 - Heart failure, unspecified (7) Hypertension: Qualifiers: Hypertension type: primary hypertension Qualified Code(s): I10 - Essential (primary) hypertension (8) Type 2 diabetes mellitus: Qualifiers: Diabetes mellitus complication detail: with peripheral angiopathy without gangrene Diabetes mellitus complication status: with circulatory complication Diabetes mellitus terminal worker insulin use: without terminal worker use Qualified Code(s): E11.51 - Type 2 diabetes mellitus with diabetic peripheral angiopathy without gangrene (9) BMI 37.0-37.9, adult: (10) History of hernia repair: (11) Acute kidney injury: (12) Acute lactic acidosis: (13) Bilateral cellulitis of lower leg: (14) Influenza A: (15) Seropositive rheumatoid arthritis of multiple sites: (16) Shock: (17) Cardiogenic shock: (18) Septic shock: (19) Acute encephalopathy: (20) Cellulitis: (21) Sepsis: Plan Acute encephalopathy -Multifactorial from sepsis, -Cellulitis -Influenza A -Head CT no acute findings -Neurochecks -Aspiration precautions Shock -Multifactorial -Cardiogenic shock -Septic shock -Could also be from diuresis -Avoid fluid therapy due to risk of fluid overload -Maintain MAP greater than 65 -Midodrine 10 every 6 hours -Will moved to ICU -PICC line order placed Acute systolic CHF exacerbation EF 30% Anasarca Morbid obese Noncompliant Has received Lasix therapy as -12 L so far hold diuresis Recheck BMP Place Marsh catheter History of third-degree AV block status post pacemaker placement Bilateral lower extremity venous stasis ulcer/purulent cellulitis History of diabetes A1c 6.5 Arterial ultrasound done in April had no acute findings 05/02 bilateral lower extremity debridement amputation of left second toe evaluated vascular surgery no intervention kept on daptomycin, Zosyn concern for MRSA, fungal tissue culture with scant growth penicillium species, likely contamination, discharged on inpatient rehab on IV antibiotics Zosyn and daptomycin with end date of 05/19/2024 -Wound culture showed Pseudomonas, micro 80s, Bacteroides fragilis Enterococcus, Staph aureus Start patient on linezolid and Zosyn As per the patient his left second toe was amputated at [facility] recently He does have unkept appearance Will use Santyl dressing, apply bacitracin, Patient will need debridement of the wound will consult general surgery Dr. Cervantes has been notified -Follow wound cultures -MRSA nares -Blood cultures N.p.o. midnight High lactic acid: Likely from sepsis Sepsis, sepsis features met given acute encephalopathy, shock, elevated lactic acid elevated inflammatory markers Hypomagnesemia: IV mag given Chronic kidney disease: Creatinine seems to be around baseline Abnormal D-dimer: Will request venous Doppler negative for DVT Influenza A: Start Tamiflu Goals of care discussed with the patient, full code DVT prophylaxis: Heparin PDMP PDMP Reviewed: Not Reviewed Attestations Medical Necessity Statement*: Patient requires hospitalization for acute encephalopathy, shock, cellulitis, sepsis, respiratory failure, CHF, influenza Diagnoses Chronic gout involving toe of right foot without tophus, unspecified cause M1A.9XX0 Gout site: toe Gout etiology: unspecified cause Chronicity: chronic Laterality: right Presence of tophus: without tophus Open wound of both lower extremities S81.801A; S81.802A Ulcers of both lower extremities, unspecified ulcer stage L97.919; L97.929 Non-pressure ulcer stage: unspecified non-pressure ulcer stage Lower extremity edema R60.0 Anasarca R60.1 Acute exacerbation of CHF (congestive heart failure) I50.9 Heart failure type: unspecified Primary hypertension I10 Hypertension type: primary hypertension Type 2 diabetes mellitus with diabetic peripheral angiopathy without gangrene, without long-term current use of insulin E11.51 Diabetes mellitus complication detail: with peripheral angiopathy without gangrene Diabetes mellitus complication status: with circulatory complication Diabetes mellitus terminal worker insulin use: without terminal worker use BMI 37.0-37.9, adult Z68.37 History of hernia repair Z98.890; Z87.19 Acute kidney injury N17.9 Acute lactic acidosis E87.21 Bilateral cellulitis of lower leg L03.116; L03.115 Influenza A J10.1 Seropositive rheumatoid arthritis of multiple sites M05.79 Shock R57.9 Cardiogenic shock R57.0 Septic shock A41.9; R65.21 Acute encephalopathy G93.40 Cellulitis L03.90 Sepsis A41.9
[2024-06-11] MEDS: collagenase oint 30 gm 1 APPLIC TOPICAL (17:03)
[2024-06-11 17:07] LABS: Glucose Point of Care 100 mg/dL (70-110)
[2024-06-11 18:03] LABS: Basophils # 0.1 10^3/uL (0.0-0.1); Basophils % 0.6 %; Eosinophils # 0.3 10^3/uL (0.0-0.8); Eosinophils % 2.5 %; Hematocrit 38.5 % (37-53); Lymphocytes # 1.1 10^3/uL (0.8-4.8); Lymphocytes % 8.9 %; Mean Corpuscular HGB Conc 28.6 g/dL (30-55); Mean Corpuscular Hemoglobin 23.3 pg (27-33); Mean Corpuscular Volume 81.4 fl (82-101); Mean Platelet Volume 9.9 fL (7.4-10.4); Monocytes # 1.8 10^3/uL (0.2-0.9); Monocytes % 15.1 %; Neutrophils # 8.45 10^3/uL (1.8-7.7); Neutrophils % 71.9 %; Nucleated Red Blood Cells % 0 %; Platelet Count 272 10^3/cmm (157-399); Red Blood Count 4.73 10^6/uL (3.85-5.65); White Blood Count 11.76 10^3/uL (3.29-11.43)
[2024-06-11] MEDS: oseltamivir phosphate 30 mg Capsule PO (18:12)
[2024-06-11] MEDS: sucralfate 1 gm/10 mL Oral Liq UDC PO ×2 (18:12→23:33)
[2024-06-11 18:22] LABS: Troponin 5 2HR 63.02 ng/L (0-15); Troponin 5 2HR Delta 0.02 ABS# (0-10)
[2024-06-11 18:47] LABS: Alanine Aminotransferase 13 U/L (0-41); Alkaline Phosphatase 172 U/L (40-130); Aspartate Amino Transferase 27 U/L (0-40); Blood Urea Nitrogen 20 mg/dL (8-23); Calcium 9.2 mg/dL (8.5-10.5); Carbon Dioxide 26 mmol/L (22-29); Chloride 103 mmol/L (98-107); Creatinine Clr Calc Pharmacy 65.4987; Globulin 2.9 g/dL (1.3-4.6); Glucose 80 mg/dL (65-115); Osmolality Calculated 300 mOsm/kg (285-295); Sodium 144 mmol/L (136-145); Total Bilirubin 1.8 mg/dL (0.15-1.2); Total Protein 5.9 g/dL (6.6-8.7)
[2024-06-11 18:53] LABS: Anion Gap 19.1 (5-19); Potassium 4.1 mmol/L (3.5-5.1)
[2024-06-11 21:13] LABS: Glucose Point of Care 150 mg/dL (70-110)
[2024-06-12] VITALS (32 sets, daily range): BP systolic 105–169; BP diastolic 62–103; PULSE 60–98; RESP 8–29; TEMP 36–36.6; O2SAT 84–99
[2024-06-12] MEDS: piperacillin-tazobactam 3.375 GM in sodium chloride 0.9% (plus) 50 ML IV ×3 (03:30→20:03)
[2024-06-12 03:45] LABS: Basophils # 0.1 10^3/uL (0.0-0.1); Basophils % 0.9 %; Eosinophils # 0.5 10^3/uL (0.0-0.8); Eosinophils % 4.6 %; Hematocrit 35.7 % (37-53); Lymphocytes # 1.1 10^3/uL (0.8-4.8); Mean Corpuscular HGB Conc 30.3 g/dL (30-55); Mean Corpuscular Hemoglobin 23.4 pg (27-33); Mean Corpuscular Volume 77.4 fl (82-101); Mean Platelet Volume 9.1 fL (7.4-10.4); Monocytes # 1.3 10^3/uL (0.2-0.9); Monocytes % 13.4 %; Neutrophils # 6.81 10^3/uL (1.8-7.7); Neutrophils % 69.2 %; Nucleated Red Blood Cells % 0 %; Platelet Count 361 10^3/cmm (157-399); Red Blood Count 4.61 10^6/uL (3.85-5.65); Red Cell Distribution Width 27.7 % (12.1-15.1); White Blood Count 9.84 10^3/uL (3.29-11.43)
[2024-06-12 04:09] LABS: Alanine Aminotransferase 12 U/L (0-41); Albumin Level 2.7 g/dL (3.5-5.2); Alkaline Phosphatase 157 U/L (40-130); Anion Gap 11.9 (5-19); Aspartate Amino Transferase 19 U/L (0-40); Blood Urea Nitrogen 21 mg/dL (8-23); Calcium 8.4 mg/dL (8.5-10.5); Carbon Dioxide 32 mmol/L (22-29); Chloride 100 mmol/L (98-107); Creatinine Clr Calc Pharmacy 61.1321; Globulin 2.4 g/dL (1.3-4.6); Glomerular Filtration Rate 47.1 mL/min (90-130); Glucose 100 mg/dL (65-115); Osmolality Calculated 293 mOsm/kg (285-295); Potassium 3.9 mmol/L (3.5-5.1); Sodium 140 mmol/L (136-145); Total Bilirubin 1.6 mg/dL (0.15-1.2); Total Protein 5.1 g/dL (6.6-8.7)
[2024-06-12] MEDS: sucralfate 1 gm/10 mL Oral Liq UDC PO ×3 (05:06→17:28)
--- NOTE | 2024-06-12 07:00 | XR_ITS ---
WS: [id number] Portable AP upright chest, 06/12/2024 Clinical Data: sob Comparison: Portable chest, 06/10/2024 Findings: No nodules, masses or effusions are seen. The heart is enlarged. The pulmonary vascularity is not increased. No pneumonia or pneumothorax is seen. The right diaphragm is elevated with minimal opacity over the lateral aspect which probably represents atelectasis rather than early pneumonia. The aortic arch and descending thoracic aorta are tortuous. The cardiac pacemaker and leads remain in the same position. There are monitor leads on the chest wall. There is osteoarthritis of the right shoulder joint. XR/XR chest 1V portable [id number] Impression: 1. Elevation of the right diaphragm with probable atelectasis over lateral aspe ct. 2. Cardiomegaly, atherosclerosis and cardiac pacemaker unchanged.
[2024-06-12 07:51] LABS: Troponin 5 6HR 75.71 ng/L (0-15)
[2024-06-12 07:56] LABS: Troponin 5 6HR Delta 12.71 ng/L (0-12)
--- NOTE | 2024-06-12 08:48 | ECG_ITS ---
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 Measurements Intervals Mallory Rate: 81 P: 32 MD: 166 QRS: 45 QRSD: 95 T: 30 QT: 402 QTc: 469 Interpretive Statements SINUS RHYTHM LOW QRS VOLTAGE IN EXTREMITY LEADS [QRS DEFLECTION < 0.5 mV IN LIMB LEADS] NONSPECIFIC ST & T-WAVE ABNORMALITY Compared to ECG 06/11/2024 13:49:43 No significant changes Electronically Signed On 06-13-2024 22:19:56 [employer]IVE SALES EXECUTIVE by Jose Antonio Head M.D. [email or web address]
[2024-06-12 09:04] LABS: Glucose Point of Care 99 mg/dL (70-110)
[2024-06-12] MEDS: pantoprazole DR 40 mg Tablet PO ×2 (09:48→17:38)
[2024-06-12] MEDS: potassium chloride ER 20 mEq Tablet PO (09:48)
[2024-06-12] MEDS: oseltamivir phosphate 30 mg Capsule PO ×2 (09:48→17:38)
[2024-06-12] MEDS: linezolid premix 600 MG/300 ML PREMIX 300 MG IV ×2 (09:49→20:59)
[2024-06-12] MEDS: sennosides-docusate Tablet 1 TAB PO (09:49)
[2024-06-12] MEDS: heparin 5,000 unit/mL INJ 1 mL 5000 UNIT SUBCUT ×2 (09:49→20:03)
[2024-06-12] MEDS: FUROsemide 10 mg/mL SDV 4mL 40 MG IVP (09:49)
[2024-06-12] MEDS: metOLazone 5 MG Tablet PO (09:49)
--- NOTE | 2024-06-12 09:55 | P.ANESASSM_ITS ---
Pre-Anesthetic Assessment Height/Weight: Height 1.75 m Weight 111.13 kg Temp Pulse Resp BP Pulse Ox O2 Del Method 97.9 F 78 16 142/92 92 Room Air 06/12/24 04:00 06/12/24 08:54 06/12/24 08:54 06/12/24 04:00 06/12/24 08:54 06/12/24 08:54 Operation Date: 06/12/24 12:40 Proposed Procedures p Incision And Drainage Incision and Drainage Lower Extremity(Bilateral) - Francisco Javier Cervantes, DO CV/HEM pacemaker 06/11/24 CONCLUSIONS Limited echo Moderately increased left ventricular cavity size. Severely decreased left ventricular systolic function. Left ventricular ejection fraction is estimated at 15 %. Moderate biatrial enlarment There is no pericardial effusion. 04/30 CONCLUSIONS Diffuse hypokinesia of the left ventricle with an ejection fraction of around 30%. Mild concentric left-ventricular hypertrophy. Moderate biatrial enlargement Moderate eccentric mitral valve regurgitation. Mild prolapse of the posterior mitral leaflet. Thickened aortic valve. Mild aortic valve regurgitation. Mild tricuspid valve regurgitation. Estimated pulmonary artery peak systolic pressure 47 mmHg. There is no pericardial effusion. There are no intracardiac masses. No similar previous studies are available for comparison Metabolic Diabetes Mellitus Anesthetic Plan ASA status: 4 Anesthesia: MAC and Local Only Risk of > 500 ml blood loss (7ml/kg in children): No Medications/Allergies Home Medications ?Medication ?Instructions ?Recorded ?Confirmed ?Last Taken ?Type docusate sodium 100 mg capsule 100 mg PO BID #14 caps 11/14/22 06/11/24 Unknown Rx (Colace) carvedilol 6.25 mg tablet 6.25 mg PO BID 04/24/2408/30 Unknown History sacubitril 24 mg-valsartan 26 mg 1 tab PO BID 04/24/24 06/11/24 Unknown History tablet (Entresto) Allergies Allergy/AdvReac Type Severity Reaction Status Date / Time No Known Allergies Allergy Verified 01/22/24 17:16 Current Medications Generic Name Dose Route Start Last Admin Trade Name Freq PRN Reason Stop Dose Admin Bacitracin 1 applic 06/10/24 22:19 06/11/24 23:10 Bacitracin Ointment 28 Gm TOPICAL Not Given TID [facility] Protocol Carvedilol 6.25 mg 06/11/24 09:00 06/11/24 08:21 Carvedilol 6.25 Mg Tablet PO 6.25 mg BID [facility] Administration Collagenase 1 applic 06/11/24 15:30 06/11/24 17:03 Collagenase Oint 30 Gm TOPICAL 1 applic DAILY [facility] Administration Heparin Sodium (Porcine) 5,000 unit 06/10/24 20:25 06/11/24 20:40 Heparin 5,000 Unit/Ml Inj 1 Ml SUBCUT 5,000 unit Q12H [facility] Administration Hydralazine HCl 10 mg 06/10/24 21:40 06/11/24 02:45 Hydralazine 20 Mg/Ml Inj 1 Ml IVP 10 mg Q4H PRN Administration bp>180/100 Linezolid 600 mg in 300 mls @ 300 mls/hr 06/11/24 09:00 06/12/24 00:55 Zyvox Premix IV Infused Q12H [facility] Infusion Protocol Piperacillin Sod/Tazobactam 50 mls @ 12.5 mls/hr 06/11/24 04:00 06/12/24 07:54 Sod 3.375 gm/ Sodium Chloride IV Infused Q8H [facility] Infusion Insulin Human Lispro 0 unit 06/11/24 08:00 06/12/24 09:33 Insulin Lispro 100 Unit/1 Ml SUBCUT Not Given TIDWM [facility] Protocol Lorazepam 0.5 mg 06/11/24 00:22 06/11/24 08:37 Lorazepam 0.5 Mg Tablet PO 0.5 mg TID PRN Administration ANXIETY Midodrine 10 mg 06/11/24 12:30 06/12/24 05:30 Midodrine 5 Mg Tablet PO Not Given Q6H [facility] Morphine Sulfate 2 mg 06/11/24 11:20 06/11/24 14:51 Morphine 4 Mg/Ml Sdv 1 Ml IVP 2 mg Q4H PRN Administration SEVERE PAIN Oseltamivir Phosphate 30 mg 06/11/24 18:00 06/11/24 18:12 Oseltamivir Phosphate 30 Mg Capsule PO 30 mg BID [facility] Administration Pantoprazole Sodium 40 mg 06/11/24 09:00 06/11/24 18:[address] 40 Mg Tablet PO 40 mg BID [facility] Administration Potassium Chloride 20 meq 06/11/24 09:00 06/11/24 08:21 Potassium Chloride Er 20 Meq Tablet PO 20 meq DAILY [facility] Administration Senna/Docusate Sodium 1 tab 02/04/25 09:00 06/11/24 08:21 Sennosides-Docusate Tablet PO 1 tab DAILY [facility] Administration Sucralfate 1 gm 06/11/24 11:30 06/12/24 05:06 Sucralfate 1 Gm/10 Ml Oral Liq Udc PO 1 gm Q6H [facility] Administration PFSH Anesthesia Medical History (Updated 06/11/24 @ 17:11 by Ashish Ortiz MD) Third degree heart block Status post pacemaker placement, 2024 [facility] Congestive heart failure Psychiatric care Gout Immunization counseling Seropositive rheumatoid arthritis of multiple sites Hypertension Surgical History History of hernia repair Family History Mother Cancer breast Father Cancer non hodgkins lymphoma Other CAD (coronary artery disease) Diabetes Family history of premature coronary artery disease Denies family history of Rheumatoid arthritis Lupus Hyperlipidemia Chronic kidney disease (CKD) Lung disease Hypertension Stroke Social History Smoking and tobacco/nicotine status: never used tobacco/nicotine Alcohol intake: never Substance/Drug Use: never Lives independently: Yes Marital status: Single Number of children: 1 Current occupational status: retired Special jennifer needs: No Agree to transfusion: Yes Data Anesthesia 06/12/24 03:27 06/12/24 03:27 Short CBC 06/10/24 06/11/24 06/11/24 Range/Units 18:20 07:37 17:35 WBC 6.98 9.62 11.76 H (3.29-11.43) 10^3/uL Hgb 10.00 L 10.50 L 11.00 L (11.27-16.99) g/dL Hct 33.5 L 34.7 L 38.5 (37-53) % MCV 78.5 L 77.5 L 81.4 L D (82-101) fl Plt Count 330 323 272 (157-399) 10^3/cmm Neut % (Auto) 65.4 72.6 71.9 % Neut # (Auto) 4.56 6.99 8.45 H (1.8-7.7) 10^3/uL 06/12/24 Range/Units 03:27 WBC 9.84 (3.29-11.43) 10^3/uL Hgb 10.80 L (11.27-16.99) g/dL Hct 35.7 L (37-53) % MCV 77.4 L (82-101) fl Plt Count 361 D (157-399) 10^3/cmm Neut % (Auto) 69.2 % Neut # (Auto) 6.81 (1.8-7.7) 10^3/uL BMP 06/10/24 06/10/24 06/11/24 18:20 22:03 07:37 Sodium 142 142 144 Potassium 3.9 3.8 3.5 Chloride 102 107 103 Carbon Dioxide 28 25 29 BUN 23 21 20 Creatinine 1.5 H 1.2 1.3 H Glucose 115 112 113 Calcium 9.6 8.4 L 9.2 06/11/24 06/11/24 06/12/24 11:00 17:35 03:27 Sodium 142 144 140 Potassium 3.7 4.1 3.9 Chloride 102 103 100 Carbon Dioxide 29 26 32 H BUN 20 20 21 Creatinine 1.4 H 1.4 H 1.5 H Glucose 40 L 80 100 Calcium 9.1 9.2 8.4 L Cardiac Enzymes 06/10/24 06/11/24 06/11/24 Range/Units 18:20 14:13 17:35 Troponin T Baseline 63 H (0-15) ng/L Troponin T 120 Minute 63.02 H (0-15) ng/L Delta Troponin T 0.02 (0-10) ABS# Troponin T Hi Sens 6Hr (0-15) ng/L Troponin T Hi Sens 6Hr Delta (0-12) ng/L NT-Pro-B Natriuret Pep 44698 H (0-125) pg/mL 06/12/24 Range/Units 07:21 Troponin T Baseline (0-15) ng/L Troponin T 120 Minute (0-15) ng/L Delta Troponin T (0-10) ABS# Troponin T Hi Sens 6Hr 75.71 H (0-15) ng/L Troponin T Hi Sens 6Hr Delta 12.71 H* (0-12) ng/L NT-Pro-B Natriuret Pep (0-125) pg/mL Liver Function 06/10/24 06/11/2406/12/25 Range/Units 18:20 17:35 03:27 Total Bilirubin 1.3 H 1.8 H 1.6 H (0.15-1.2) mg/dL AST 40 27 19 (0-40) U/L ALT 17 13 12 (0-41) U/L Alkaline Phosphatase 192 H 172 H 157 H (40-130) U/L Albumin 3.3 L 3.0 L 2.7 L (3.5-5.2) g/dL Urine 06/10/24 Range/Units 21:35 Urine Color Yellow (Yellow) Urine Appearance Clear (CLEAR) Urine pH 6.0 (5-7) Ur Specific [place] 1.016 (1.005-1.030) Urine Protein 1+ A (Negative) Urine Glucose (UA) Negative (Normal) Urine Ketones Negative (Negative) Urine Nitrate Negative (Negative) Urine Bilirubin Negative (Negative) Ur Leukocyte Esterase 1+ A (Negative) Urine RBC 0-2 (0-2) /hpf Urine WBC 0-5 (0-5) /hpf COVID Results 06/10/24 18:20 Coronavirus (PCR) Negative Coags 06/10/24 06/11/24 06/11/24 18:20 07:37 11:00 ESR 1 PT 15.60 H INR 1.16 APTT 33.4 D-Dimer 3.73 H C-Reactive Protein 21.2 H ABG 06/10/24 21:33 Specimen Type Arterial Sample Site Brachial, right ABG pH 7.44 ABG pCO2 41.8 ABG pO2 68.2 L ABG HCO3 28.2 H ABG Base Excess 3.6 H O2 Delivery Device Room air Microbiology 06/11/24 17:29 Gram Stain - Final Leg - #1 06/11/24 17:29 Gram Stain - Final Leg - #2 06/10/24 20:08 Blood Culture - Preliminary Blood NEGATIVE TO DATE 06/10/24 20:06 Blood Culture - Preliminary Blood NEGATIVE TO DATE Cardiac Studies: 2 Echocardiogram 04/24/24 Echocardiogram Limited Views 06/11/24
--- NOTE | 2024-06-12 10:45 | PICC.NOTE ---
Order for PICC cancelled at this time per Dr. Ortiz. Pt has two working peripheral IVs and is not on any drips requiring central access.
--- NOTE | 2024-06-12 11:44 | ANES.PROC ---
Anesthesia Procedures Procedure/Date: 06/12/24 Nerve Block ^: Nerve Block 1: Main Anesthesia: other Time Out Performed: Yes Consent: requested by attending/covering physician, from patient, from other, risks and benefits reviewed and patient agrees to proceed Nerve block location: popliteal Nerve block position: supine Anesthetic Used: ropivicaine 0.5% (20 ml) Ultrasound used to: recognize landmarks Nerve Stimulator Used?: No Interscalene/Femoral BLK: 4 stimuplex 21 g needle used for position and inplane approach, visualize local anesthetic spread and no vascular puncture identified Injection: neg aspiration of heme Patient Tolerated Procedure: well Complications: none Nerve Block 2: Main Anesthesia: other Time Out Performed: Yes Consent: requested by attending/covering physician, from patient, from other, risks and benefits reviewed and patient agrees to proceed Nerve block location: adductor canal (20 ml) Anesthesia monitors applied: pulse oximetry, EKG, BP cuff and oxygen Nerve block position: supine Anesthetic Used: ropivicaine 0.5% Amount of anesthesia used (mL): 20 Ultrasound used to: recognize landmarks and visualize and ID femerol nerve Interscalene/Femoral BLK: 4 stimuplex 21 g needle used for position and inplane approach, visualize local anesthetic spread and no vascular puncture identified Injection: neg aspiration of heme Patient Tolerated Procedure: well Complications: none
[2024-06-12 12:02] LABS: Glucose Point of Care 127 mg/dL (70-110)
[2024-06-12] MEDS: midodrine 5 mg TABLET 10 MG PO (12:45)
[2024-06-12] MEDS: collagenase oint 30 gm 1 APPLIC TOPICAL (12:46)
[2024-06-12] MEDS: bacitracin ointment 28 gm 1 APPLIC TOPICAL ×3 (12:47→21:00)
[2024-06-12] MEDS: morphine 4 mg/mL SDV 1 mL 2 MG IVP (13:01)
--- NOTE | 2024-06-12 13:41 | P.PN_ITS ---
Vitals/I&O/Wt Last Vital Signs Temp 96.8 F L 06/12/24 12:30 Pulse 84 06/12/24 13:00 Resp 17 06/12/24 13:01 BP 139/79 06/12/24 13:00 Pulse Ox 93 06/12/24 13:01 O2 Del Method Room Air 06/12/24 13:00 06/11/24 06/12/24 06/12/24 22:59 06:59 14:59 Intake Total 530 / 880 650 / 1530 100 / 100 Output Total 700 / 3900 600 / 4500 1700 / 1700 Balance -170 / -3020 50 / -2970 -1600 / -1600 Weight last 48 hrs Weight 245 lb Weight 245 lb Weight 245 lb Weight 160 lb Physical Exam 2 Urinary Catheter Management: Marsh: Cath Placed During This Visit: yes Reason for Continuing Indwelling Catheter: Accurate Measurement of Urinary Output in Critically Ill Patients Urinary Catheter Date of Insertion: 06/10/24 Urinary Catheter Time of Insertion: 21:38 Data 06/12/24 03:27 06/12/24 03:27 Micro: Microbiology 06/10/24 21:35 Urine Culture - Preliminary Urine,Clean Catch 06/11/24 17:29 Gram Stain - Final Leg - #1 06/11/24 17:29 Gram Stain - Final Leg - #2 06/10/24 20:08 Blood Culture - Preliminary Blood NEGATIVE TO DATE 06/10/24 20:06 Blood Culture - Preliminary Blood NEGATIVE TO DATE A&P Assessment and plan (1) Venous stasis ulcers of both lower extremities: Plan Sharp excisional debridement of left lower extremity Sharp excisional debridement of right lower extremity We were able to get a hold of the son later on in the day. The risk benefits of the procedure, including but limited to, bleeding, scar, numbness, pain, recurrent infection, need for further surgery potentially resulting in amputation, were explained. He is understand the risks and wished to proceed PDMP PDMP Reviewed: Not Reviewed Attestations 2 Medical Necessity Statement*: per primary Coding Level of Care Code Acute Code for Chg Fwd Diagnoses Venous stasis ulcers of both lower extremities I83.019; I83.029; L97.919; L97.928
--- NOTE | 2024-06-12 14:24 | PM.OP ---
Operative Report Date of procedure: June 12, 2024 Pre-op diagnosis: Bilateral lower extremity venous stasis ulcers Post-op diagnosis: same Procedure done: Sharp excisional debridement of venous stasis ulcers left leg for a total surface area greater than 60 cm Specimens removed/disposition: Tissue sent for culture from ulcers Surgeon: Francisco Javier Cervantes DO Anesthesia: Nerve Block Estimated blood loss (mL): 5 Complications: None apparent Brief History: This is a 63-year-old gentleman with chronic venous stasis ulcers of the bilateral lower extremities. He is a high risk cardiac patient. Therefore we elected to do nerve block instead of intubation. Because of this we have to do 1 extremity at a time. Sharp excisional debridement left lower extremity is indicated the risks and benefits were explained to the patient's son. He was excepting of the risks and wished to proceed. Procedure: Patient was wheeled operative room and placed on the OR table in the supine position. A left lower extremity nerve block was placed by the department anesthesia. Patient was then put into the right lateral decubitus position. The left lower extremity was inspected prepped and draped in usual sterile fashion. Patient had a total of 4 chronic venous stasis ulcers on his left leg, 1 anterior, 1 lateral and 2 posterior. All 4 ulcers were sharply excised using curettes down to healthy bleeding tissue. Anterior ulcer measured 2.5 cm x 6 mm x 3 mm deep. Lateral ulcer measured 2.7 cm x 1.7 cm x 5 mm deep. Posterior ulcers measured 4.3 cm x 2.5 cm x 7 mm deep and 3.7 cm x 2.3 cm x 4 mm deep. Greater than 60 cm? of tissue was sharply excised and debrided. Cultures were sent to pathology. Sterile bandages were applied. Patient tolerated procedure well.
--- NOTE | 2024-06-12 14:50 | ANE.PACU2 ---
Inpatient post-anesthesia follow up: Airway intact: Yes Vital signs: Temperature 98.8 F Pulse Rate 98 Respiratory Rate 21 Blood Pressure 136/96 Pulse Oximetry 97 Oxygen Delivery Me thod Nasal Cannula Oxygen Flow Rate 2 Fraction of Inspir ed Oxygen Hydration adequate: Yes Nausea and vomiting: No Pain level: 1 Mental status: Baseline
--- NOTE | 2024-06-12 15:18 | P.CONIM_ITS ---
<Statement entered by Tom Martinez MD - 06/13/24 00:15> Patient was evaluated and cared for in conjunction with an advanced practice practitioner. I personally examined the patient and reviewed the chart and all pertinent data including imaging, telemetry, and laboratory results. I discussed the patient in detail with the advanced practice practitioner. Please see their note for complete H&P testing result and agreed upon plan of care for the patient. 63-year-old male past medical history significant for nonischemic cardiomyopathy with nonobstructive coronary artery disease pending official left heart catheter result to further evaluate presented with decompensated heart failure, hypertension and lower extremity nonhealing ulcer on the right side involving the chowdhury on the left side toe amputation, please see detail below GENERAL: Patient is alert, awake and oriented x3. HEART: Regular S1 and S2. No murmur, rub or gallop. LUNGS: Clear to auscultate bilaterally. CENTRAL NERVOUS SYSTEM: Grossly nonfocal. EXTREMITIES: Lower extremities right chowdhury ulcer, left toe amputation status post, 2+ edema Assessment and plan Nonischemic cardiomyopathy Severely depressed left ventricular ejection fraction less than 15% Nonhealing leg ulcer on the right side consistent with more venous, left side could be PAD Systolic heart failure now compensated CKD Continue plan as below, will ask for venous reflux study for chronic venous insufficiency given the nonhealing nature of the right chowdhury ulcer in case of GSV insufficiency may can benefit with venous ablation to further improve chances of wound healing, once creatinine stable he may need to rule out peripheral arterial disease with CTA with runoff Will optimize guideline medical therapy for heart failure currently due to euvolemic status and renal function diuretics is on hold. Further plan will be advised as per progress of the patient Providers/Reason For Consult 2 Consulting Physician/Specialty*: Tom Martinez MD Reason for Consult*: CHF exacerbation Requesting Physician: Dr. Angel MD Attending Physician: Ashish Ortiz MD Primary Care Provider: Itz Pierson MD History of Present Illness History of Present Illness This is a very pleasant 63-year-old gentleman who has a history of nonischemic cardiomyopathy. He had a heart cath at [place] that showed no significant coronary artery stenosis with moderate to severe tricuspid, moderate mitral regurg, mild to moderate aortic valve stenosis, severely dilated right ventricle with elevated right ventricular pressure at 40-50, EF of 20-25%. This was a verbal report given to me by Ish. We have requested official records. He was placed on Entresto at home, however this is being held at the time due to hypotension. Most recent echo done yesterday showed EF at 15%. We are also requesting records from [facility]. He was recently hospitalized due to CHF exacerbation and was transferred to [facility] for third-degree AV block. He is status post dual chamber pacemaker placement on 04/29. He tells me he initially came in because his legs were getting worse. He has chronic diabetic ulcers to bilateral lower extremities. He states he was positive for MRSA. He was also found to be positive for the flu. This time he denies any significant shortness of breath. Denies any chest pain. He was diuresed almost 12 L over this hospital stay. Yesterday he had an output of -8, 900. He had been getting Lasix 60 twice daily but currently this is being held. He had a recent slight increase in his creatinine at 1.5. Currently he is getting carvedilol 6.25 mg p.o. twice daily, midodrine 10 mg every 6 hours. He has edema of the bilateral lower extremities but no DVT. Previous lower extremity duplex showed triphasic to biphasic bilateral lower extremity waveforms with no significant stenosis. He had normal ABIs bilaterally. Review of Systems 2 Narrative: Consitutional: denies fever, chills, body aches, or changes in appetite, denies abnormal weight loss Eyes: Denies changes in vision Card: Denies chest pain, palpitations, irregular heart rhythm, edema, syncope, shortness of breath, orthopnea, leg pain with exertion Resp: Denies shortness of breath, denies hemoptysis, denies cough GI: denies abdominal pain, denies nausea or voimting, denies blood in stool : denies blood in urine, denies dysuria Musc: reports bilateral lower leg pain at his wounds Skin: reports chronic lower extremity wounds with infection Neuro: Denies numbness in extremities, h/a, s/s of stroke Robert: Denies easy bruiding/bleeding Medications/Allergies Home Medications ?Medication ?Instructions ?Recorded ?Confirmed ?Last Taken ?Type docusate sodium 100 mg capsule 100 mg PO BID #14 caps 11/14/22 06/11/24 Unknown Rx (Colace) carvedilol 6.25 mg tablet 6.25 mg PO BID 04/24/24 02/08/30 Unknown History sacubitril 24 mg-valsartan 26 mg 1 tab PO BID 04/24/24 06/11/24 Unknown History tablet (Entresto) Allergies Allergy/AdvReac Type Severity Reaction Status Date / Time No Known Allergies Allergy Verified 01/22/24 17:16 Current Medications Generic Name Dose Route Start Last Admin Trade Name Freq PRN Reason Stop Dose Admin Bacitracin 1 applic 06/10/24 22:19 06/12/24 12:47 Bacitracin Ointment 28 Gm TOPICAL 1 applic TID AMBER Administration Protocol Carvedilol 6.25 mg 06/11/24 09:00 06/11/24 08:21 Carvedilol 6.25 Mg Tablet PO 6.25 mg BID AMBER Administration Collagenase 1 applic 06/11/24 15:30 06/12/24 12:46 Collagenase Oint 30 Gm TOPICAL 1 applic DAILY AMBER Administration Heparin Sodium (Porcine) 5,000 unit 06/10/24 20:25 06/12/24 09:49 Heparin 5,000 Unit/Ml Inj 1 Ml SUBCUT 5,000 unit Q12H AMBER Administration Hydralazine HCl 10 mg 06/10/24 21:40 06/11/24 02:45 Hydralazine 20 Mg/Ml Inj 1 Ml IVP 10 mg Q4H PRN Administration bp>180/100 Linezolid 600 mg in 300 mls @ 300 mls/hr 06/11/24 09:00 06/12/24 11:00 Zyvox Premix IV Infused Q12H AMBER Infusion Protocol Piperacillin Sod/Tazobactam 50 mls @ 12.5 mls/hr 06/11/24 04:00 06/12/24 13:03 Sod 3.375 gm/ Sodium Chloride IV 12.5 mls/hr Q8H AMBER Administration Insulin Human Lispro 0 unit 06/11/24 08:00 06/12/24 11:32 Insulin Lispro 100 Unit/1 Ml SUBCUT Not Given TIDWM [facility] Protocol Lorazepam 0.5 mg 06/11/24 00:22 06/11/24 08:37 Lorazepam 0.5 Mg Tablet PO 0.5 mg TID PRN Administration ANXIETY Midodrine 10 mg 06/11/24 12:30 06/12/24 12:45 Midodrine 5 Mg Tablet PO 10 mg Q6H AMBER Administration Morphine Sulfate 2 mg 06/11/24 11:20 06/12/24 13:01 Morphine 4 Mg/Ml Sdv 1 Ml IVP 2 mg Q4H PRN Administration SEVERE PAIN Oseltamivir Phosphate 30 mg 06/11/24 18:00 06/12/24 09:48 Oseltamivir Phosphate 30 Mg Capsule PO 30 mg BID AMBER Administration Pantoprazole Sodium 40 mg 06/11/24 09:00 06/12/24 09:[address] 40 Mg Tablet PO 40 mg BID AMBER Administration Potassium Chloride 20 meq 06/11/24 09:00 06/12/24 09:48 Potassium Chloride Er 20 Meq Tablet PO 20 meq DAILY AMBER Administration Senna/Docusate Sodium 1 tab 06/11/24 09:00 06/12/24 09:49 Sennosides-Docusate Tablet PO 1 tab DAILY AMBER Administration Sucralfate 1 gm 06/11/24 11:30 06/12/24 12:45 Sucralfate 1 Gm/10 Ml Oral Liq Udc PO 1 gm Q6H AMBER Administration PFSH Acute 2 PFSH: Medical History Third degree heart block Status post pacemaker placement, 2024 [facility] Congestive heart failure Psychiatric care Gout Immunization counseling Seropositive rheumatoid arthritis of multiple sites Hypertension Surgical History History of hernia repair Family History Mother Cancer breast Father Cancer non hodgkins lymphoma Other CAD (coronary artery disease) Diabetes Family history of premature coronary artery disease Denies family history of Rheumatoid arthritis Lupus Hyperlipidemia Chronic kidney disease (CKD) Lung disease Hypertension Stroke Social History Smoking and tobacco/nicotine status: never used tobacco/nicotine Alcohol intake: never Substance/Drug Use: never Lives independently: Yes Marital status: Single Number of children: 1 Current occupational status: retired Special jennifer needs: No Agree to transfusion: Yes Vitals/I&O/Wt Last Vital Signs Temp 96.8 F L 06/12/24 12:30 Pulse 84 06/12/24 13:00 Resp 17 06/12/24 13:01 BP 139/79 06/12/24 13:00 Pulse Ox 93 06/12/24 13:01 O2 Del Method Room Air 06/12/24 13:00 06/12/24 06/12/24 06/12/24 06:59 14:59 22:59 Intake Total 650 / 1530 400 / 400 Output Total 600 / 4500 1700 / 1700 Balance 50 / -2970 -1300 / -1300 Weight last 48 hrs Weight 245 lb Weight 245 lb Weight 245 lb Weight 160 lb Physical Exam 2 Narrative: General: No apparent distress, healthy appearing, well nourished HENMT: normoceophalic Muskuloskeletal: Full ROM Lymphatic: no lymphedema noted Respiratory: Normal respiratory effort, clear to auscultation bilaterally throughout all lung brasher, no use of accessory muscles Cardio: No JVD, regular rate, regular rhythm, S1 S2 normal, no murmurs, peripheral pulses 2+ throughout GI: Normal to inspection, nondistended Extremities: Full ROM, normal, normal capillary refill, no cyanosis or edema Neuro: Alert and oriented x4, no focal motor deficits Psych: Affect normal, denies suicidal ideation, mental status grossly normal Skin: Bilateral lower extremities are wrapped up due to wounds, he has a toe amputation present that looks necrotic at the base Urinary Catheter Management: Marsh: Cath Placed During This Visit: yes Reason for Continuing Indwelling Catheter: Accurate Measurement of Urinary Output in Critically Ill Patients Urinary Catheter Date of Insertion: 06/10/24 Urinary Catheter Time of Insertion: 21:38 Data 06/12/24 03:27 06/12/24 03:27 Micro: Microbiology 06/11/24 17:29 Gram Stain - Final Leg - #2 Wound Culture - Preliminary 06/11/24 17:29 Gram Stain - Final Leg - #1 Wound Culture - Preliminary 06/10/24 21:35 Urine Culture - Preliminary Urine,Clean Catch 06/10/24 20:08 Blood Culture - Preliminary Blood NEGATIVE TO DATE 06/10/24 20:06 Blood Culture - Preliminary Blood NEGATIVE TO DATE Other data: Limited Echo Moderately increased left ventricular cavity size. Severely decreased left ventricular systolic function. Left ventricular ejection fraction is estimated at 15 %. Moderate biatrial enlarment There is no pericardial effusion. Trop 63-63.02-75.7 A&P Assessment and plan (1) Hypertensive urgency: (2) Hypertension: Qualifiers: Hypertension type: primary hypertension Qualified Code(s): I10 - Essential (primary) hypertension (3) Congestive heart failure: Qualifiers: Heart failure chronicity: acute on chronic Heart failure type: systolic Qualified Code(s): I50.23 - Acute on chronic systolic (congestive) heart failure (4) Acute exacerbation of CHF (congestive heart failure): Qualifiers: Heart failure type: unspecified Qualified Code(s): I50.9 - Heart failure, unspecified Plan Patient has come in with CHF exacerbation and infected lower extremity wounds. He has been diuresed well and overall looks euvolemic. Can hold lasix for now. Continue carvedilol. Would recommend adding back Entresto when creatinine returns to baseline. Will titrate diuretics to patient's response. In the future, patient may require CTA AFRO as well to evaluate for potential PAD not seen on US, as patient has a toe ulcer that could be distal PAD. Once creatinine has returned to baseline, will consider obtaining this. We will need to discuss life[facility] in the future. We will obtain records from [facility] and [facility] as well. Thank you, Dr. Ortiz, for the opportunity to care for this very pleasant 63 year old gentleman. PDMP PDMP Reviewed: Not Reviewed Consult Attestations 2 Medical Necessity Statement: Deferred to primary care. Coding Level of Care Code Acute Code for g Fwd Diagnoses Hypertensive urgency I16.0 Primary hypertension I10 Hypertension type: primary hypertension Acute on chronic systolic congestive heart failure I50.23 Heart failure chronicity: acute on chronic Heart failure type: systolic Acute exacerbation of CHF (congestive heart failure) I50.9 Heart failure type: unspecified
--- NOTE | 2024-06-12 16:30 | PM.PN ---
Subjective Subjective: Patient was seen this morning, he is alert to person, to place, not to time he can follow commands, shortness of breath is improving blood pressures are improving, denies any nausea, no vomiting, no abdominal pain Vitals/I&O/Wt Last Vital Signs Temp 96.8 F L 06/12/24 12:30 Pulse 72 06/12/24 13:00 Resp 17 06/12/24 13:01 BP 139/79 06/12/24 13:00 Pulse Ox 93 06/12/24 13:01 O2 Del Method Room Air 06/12/24 13:00 06/12/24 06/12/24 06/12/24 06:59 14:59 22:59 Intake Total 650 / 1530 400 / 400 Output Total 600 / 4500 1700 / 1700 Balance 50 / -2970 -1300 / -1300 Weight last 48 hrs Weight 111.13 kg Weight 111.13 kg Weight 111.13 kg Weight 72.575 kg Physical Exam Const: COMMON NORMALS: no acute distress ORIENTATION/CONSCIOUSNESS: Yes awake, Yes oriented to person and Yes oriented to place Resp: COMMON NORMALS: normal respiratory effort, No retractions and No use of accessory muscles Cardio: COMMON NORMALS: regular rate, regular rhythm, S1 normal heart sound present and S2 normal heart sound present RATE: regular rate RHYTHM: regular rhythm HEART SOUNDS: S1 normal heart sound present and S2 normal heart sound present GI: COMMON NORMALS: Normal to inspection, nondistended, normoactive bowel sounds present and non-tender OTHER: EDEMA Extremity: NARRATIVE EXTREMITY EXAM: 1+ EDEMA OTHER: bilateral lower extremity wounds wrapped Neuro: SENSORIUM/ORIENTATION: Yes oriented to person and Yes oriented to place Psych: COMMON NORMALS: mental status grossly normal Urinary Catheter Management: Marsh: Cath Placed During This Visit: yes Reason for Continuing Indwelling Catheter: Accurate Measurement of Urinary Output in Critically Ill Patients Urinary Catheter Date of Insertion: 06/10/24 Urinary Catheter Time of Insertion: 21:38 Data 06/12/24 03:27 06/12/24 03:27 Micro: Microbiology 06/11/24 17:29 Gram Stain - Final Leg - #2 Wound Culture - Preliminary 06/11/24 17:29 Gram Stain - Final Leg - #1 Wound Culture - Preliminary 06/10/24 21:35 Urine Culture - Preliminary Urine,Clean Catch 06/10/24 20:08 Blood Culture - Preliminary Blood NEGATIVE TO DATE 06/10/24 20:06 Blood Culture - Preliminary Blood NEGATIVE TO DATE A&P Assessment and plan (1) Gout: Qualifiers: Gout site: toe Gout etiology: unspecified cause Chronicity: chronic Laterality: right Presence of tophus: without tophus Qualified Code(s): M1A.9XX0 - Chronic gout, unspecified, without tophus (tophi) (2) Open wound of both lower extremities: (3) Bilateral leg ulcer: Qualifiers: Non-pressure ulcer stage: unspecified non-pressure ulcer stage Qualified Code(s): L97.919 - Non-pressure chronic ulcer of unspecified part of right lower leg with unspecified severity; L97.929 - Non-pressure chronic ulcer of unspecified part of left lower leg with unspecified severity (4) Lower extremity edema: (5) Anasarca: (6) Acute exacerbation of CHF (congestive heart failure): Qualifiers: Heart failure type: unspecified Qualified Code(s): I50.9 - Heart failure, unspecified (7) Hypertension: Qualifiers: Hypertension type: primary hypertension Qualified Code(s): I10 - Essential (primary) hypertension (8) Type 2 diabetes mellitus: Qualifiers: Diabetes mellitus complication detail: with peripheral angiopathy without gangrene Diabetes mellitus complication status: with circulatory complication 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: 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 machine operator use Qualified Code(s): E11.51 - Type 2 diabetes mellitus with diabetic peripheral angiopathy without gangrene (9) BMI 37.0-37.9, adult: (10) History of hernia repair: (11) Acute kidney injury: (12) Acute lactic acidosis: (13) Bilateral cellulitis of lower leg: (14) Influenza A: (15) Seropositive rheumatoid arthritis of multiple sites: (16) Shock: (17) Cardiogenic shock: (18) Septic shock: (19) Acute encephalopathy: (20) Cellulitis: (21) Sepsis: Plan Acute encephalopathy, resolving -Multifactorial from sepsis, -Cellulitis -Influenza A -Head CT no acute findings -Neurochecks -Aspiration precautions Shock, resolved -Multifactorial -Cardiogenic shock -Septic shock -Could also be from diuresis -Avoid fluid therapy due to risk of fluid overload -Maintain MAP greater than 65 - moved to ICU Acute systolic CHF exacerbation CONCLUSIONS Limited echo Moderately increased left ventricular cavity size. Severely decreased left ventricular systolic function. Left ventricular ejection fraction is estimated at 15 %. Moderate biatrial enlarment There is no pericardial effusion. Anasarca Morbid obese Noncompliant -13L one dose lasix and metolazone Place Marsh catheter History of third-degree AV block status post pacemaker placement Bilateral lower extremity venous stasis ulcer/purulent cellulitis History of diabetes A1c 6.5 Arterial ultrasound done in April had no acute findings 05/02 bilateral lower extremity debridement amputation of left second toe evaluated vascular surgery no intervention kept on daptomycin, Zosyn concern for MRSA, fungal tissue culture with scant growth penicillium species, likely contamination, discharged on inpatient rehab on IV antibiotics Zosyn and daptomycin with end date of 05/19/2024 -Wound culture showed Pseudomonas, micro 80s, Bacteroides fragilis Enterococcus, Staph aureus Start patient on linezolid and Zosyn As per the patient his left second toe was amput[facility] at [facility] recently He does have unkept appearance Will use Santyl dressing, apply bacitracin, Patient will need debridement of the wound, general surgery Dr. Cervantes has been notified -Follow wound cultures -MRSA nares -Blood cultures N.p.o. midnight High lactic acid: Likely from sepsis Sepsis, sepsis features met given acute encephalopathy, shock, elevated lactic acid elevated inflammatory markers Hypomagnesemia: IV mag given Chronic kidney disease: Creatinine seems to be around baseline Abnormal D-dimer: Will request venous Doppler negative for DVT Influenza A: Tamiflu Goals of care discussed with the patient, full code DVT prophylaxis: Heparin Plan for today look to cardiology, spoke to general surgery, IV diuresis, IV antibiotics, Tamiflu, monitor closely PDMP PDMP Reviewed: Not Reviewed Attestations Medical Necessity Statement*: Patient requires hospitalization for acute respiratory failure bilateral extremity wounds acute encephalopathy, shock, bilateral extremity cellulitis Diagnoses Chronic gout involving toe of right foot without tophus, unspecified cause M1A.9XX0 Gout site: toe Gout etiology: unspecified cause Chronicity: chronic Laterality: right Presence of tophus: without tophus Open wound of both lower extremities S81.801A; S81.802A Ulcers of both lower extremities, unspecified ulcer stage L97.919; L97.929 Non-pressure ulcer stage: unspecified non-pressure ulcer stage Lower extremity edema R60.0 Anasarca R60.1 Acute exacerbation of CHF (congestive heart failure) I50.9 Heart failure type: unspecified Primary hypertension I10 Hypertension type: primary hypertension Type 2 diabetes mellitus with diabetic peripheral angiopathy without gangrene, without long-term current use of insulin E11.51 Diabetes mellitus complication detail: with peripheral angiopathy without gangrene Diabetes mellitus complication status: with circulatory complication Diabetes mellitus long-term insulin use: without long-term use BMI 37.0-37.9, adult Z68.37 History of hernia repair Z98.890; Z87.19 Acute kidney injury N17.9 Acute lactic acidosis E87.21 Bilateral cellulitis of lower leg L03.116; L03.115 Influenza A J10.1 Seropositive rheumatoid arthritis of multiple sites M05.79 Shock R57.9 Cardiogenic shock R57.0 Septic shock A41.9; R65.21 Acute encephalopathy G93.40 Cellulitis L03.90 Sepsis A41.9
[2024-06-12 17:37] LABS: Glucose Point of Care 86 mg/dL (70-110)
--- NOTE | 2024-06-12 19:30 | PC.NURSE ---
Shift summary: Pt rested in bed throughout the shift. Sinus rhtyhm noted on monitor. Right wound dressing hanged with collagen and bacitiracin as ordered. Left leg ulcer not visualized this shift as pt had a debridement med day. Pt tolerated well. He required O2 3lpm/NC afterwards for several hours. He rested with his eyes closed most of the afternoon post debridement. He only required Morphine once, post right dressing change. His abdomen is very large, firm and kasie in color. He had 2650ml of urine output. NO Bm noted this shift.
[2024-06-12 21:13] LABS: Glucose Point of Care 144 mg/dL (70-110)
[2024-06-13] VITALS (30 sets, daily range): BP systolic 121–156; BP diastolic 63–102; PULSE 60–113; RESP 7–26; TEMP 36.1–37.1; O2SAT 89–100
[2024-06-13] MEDS: piperacillin-tazobactam 3.375 GM in sodium chloride 0.9% (plus) 50 ML IV ×3 (04:00→20:01)
[2024-06-13 04:17] LABS: Basophils # 0.1 10^3/uL (0.0-0.1); Basophils % 0.7 %; Eosinophils # 0.5 10^3/uL (0.0-0.8); Eosinophils % 4.7 %; Hematocrit 37.4 % (37-53); Lymphocytes # 1.1 10^3/uL (0.8-4.8); Mean Corpuscular HGB Conc 30.2 g/dL (30-55); Mean Corpuscular Hemoglobin 23.8 pg (27-33); Mean Corpuscular Volume 78.7 fl (82-101); Mean Platelet Volume 9.1 fL (7.4-10.4); Monocytes # 1.9 10^3/uL (0.2-0.9); Monocytes % 16.3 %; Neutrophils # 7.66 10^3/uL (1.8-7.7); Neutrophils % 67.4 %; Nucleated Red Blood Cells % 0 %; Platelet Count 349 10^3/cmm (157-399); Red Blood Count 4.75 10^6/uL (3.85-5.65); Red Cell Distribution Width 27.7 % (12.1-15.1); White Blood Count 11.35 10^3/uL (3.29-11.43)
[2024-06-13 04:31] LABS: INR 1.21 (0.8-1.2)
[2024-06-13 04:44] LABS: Alanine Aminotransferase 10 U/L (0-41); Albumin Level 2.7 g/dL (3.5-5.2); Alkaline Phosphatase 143 U/L (40-130); Anion Gap 12.7 (5-19); Aspartate Amino Transferase 16 U/L (0-40); Blood Urea Nitrogen 23 mg/dL (8-23); C Reactive Protein 29.1 mg/L (0.0-4.9); Carbon Dioxide 34 mmol/L (22-29); Chloride 98 mmol/L (98-107); Creatinine Clr Calc Pharmacy 57.3114; Globulin 2.7 g/dL (1.3-4.6); Glomerular Filtration Rate 43.7 mL/min (90-130); Glucose 114 mg/dL (65-115); Magnesium 1.5 mg/dL (1.7-2.3); Osmolality Calculated 297 mOsm/kg (285-295); Phosphorus 4.1 mg/dL (2.5-4.5); Potassium 3.7 mmol/L (3.5-5.1); Sodium 141 mmol/L (136-145); Total Bilirubin 1.3 mg/dL (0.15-1.2); Total Protein 5.4 g/dL (6.6-8.7)
[2024-06-13 04:47] LABS: Lactate (Lactic Acid level) 1.6 mmol/L (0.5-2.2); NT Pro B Type Natriuretic Pept 8301 pg/mL (0-125); Procalcitonin 1.45 ng/mL (0-0.5)
[2024-06-13 05:32] LABS: ABG PCO2 50.6 mmHg (35-45); ABG PH Result 7.45 (7.35-7.45); Arterial Blood Gas Hematocrit 38.4 % (42-52); Base Excess ABG 9.1 mmol/L (-2.0-2.0); Blood Gas Allen Test Pos; Blood Gas Operator Identificat JDB; Blood Gas Sample Site Radial, right; Blood Gas Sample Type Arterial; HCO3 ABG 34.7 mmol/L (22-26); Oxygen Device ROOM AIR; PO2 FiO2 Ratio Arterial Blood 500
[2024-06-13] MEDS: sucralfate 1 gm/10 mL Oral Liq UDC PO ×4 (06:33→22:39)
[2024-06-13 07:36] LABS: Glucose Point of Care 127 mg/dL (70-110)
[2024-06-13] MEDS: morphine 4 mg/mL SDV 1 mL 2 MG IVP (08:38)
[2024-06-13] MEDS: pantoprazole DR 40 mg Tablet PO ×2 (08:42→17:09)
[2024-06-13] MEDS: potassium chloride ER 20 mEq Tablet PO (08:42)
[2024-06-13] MEDS: sennosides-docusate Tablet 1 TAB PO (08:42)
[2024-06-13] MEDS: heparin 5,000 unit/mL INJ 1 mL 5000 UNIT SUBCUT ×2 (08:42→20:02)
[2024-06-13] MEDS: linezolid premix 600 MG/300 ML PREMIX 300 MG IV ×2 (08:42→21:07)
[2024-06-13] MEDS: oseltamivir phosphate 30 mg Capsule PO ×2 (08:42→17:09)
[2024-06-13] MEDS: bacitracin ointment 28 gm 1 APPLIC TOPICAL ×2 (08:50→21:18)
[2024-06-13] MEDS: nystatin powder 15 gm Btl 1 APPLIC TOPICAL ×2 (09:05→17:08)
[2024-06-13 12:25] LABS: Glucose Point of Care 94 mg/dL (70-110)
[2024-06-13] MEDS: LORazepam 2 mg/mL INJ 1 mL 1 MG IVP (12:39)
--- NOTE | 2024-06-13 12:59 | P.ANESUD_ITS ---
Pre-Anesthetic Update Pre-Anesthetic Assessment: Date of Surgery/Procedure: 06/13/24 Proposed Procedure: Operation Date: 06/12/24 12:40 Proposed Procedures p Incision And Drainage Incision and Drainage Lower Extremity(Left) - Francisco Javierbrittney Cervantes, DO Operation Date: 06/13/24 12:55 Proposed Procedures p Sharp excisional debridement right lower extremity(Right) - Francisco Javier Billy, DO Any changes to Pre-Anesthetic Assessment?: No Last Intake: > 8hrs Labs Last 48hrs: Short CBC 06/11/24 06/12/24 06/13/24 Range/Units 17:35 03:27 03:39 WBC 11.76 H 9.84 11.35 (3.29-11.43) 10^ 3/uL Hgb 11.00 L 10.80 L 11.30 (11.27-16.99) g/ dL Hct 38.5 35.7 L 37.4 (37-53) % MCV 81.4 L D 77.4 L 78.7 L (82-101) fl Plt Count 272 361 D 349 (157-399) 10^3/c mm Neut % (Auto) 71.9 69.2 67.4 % Neut # (Auto) 8.45 H 6.81 7.66 (1.8-7.7) 10^3/u L BMP 06/11/24 06/12/24 06/13/24 17:35 03:27 03:39 Sodium 144 140 141 Potassium 4.1 3.9 3.7 Chloride 103 100 98 Carbon Dioxide 26 32 H 34 H BUN 20 21 23 Creatinine 1.4 H 1.5 H 1.6 H Glucose 80 100 114 Calcium 9.2 8.4 L 8.0 L Cardiac Enzymes 06/11/24 06/11/24 06/12/24 Range/Units 14:13 17:35 07:21 Troponin T Baselin e 63 H (0-15) ng/L Troponin T 120 Min [place] 63.02 H (0-15) ng/L Delta Troponin T 0.02 (0-10) ABS# Troponin T Hi Sens 6Hr 75.71 H (0-15) ng/L Troponin T Hi Sens 6Hr Delta 12.71 H* (0-12) ng/L NT-Pro-B Natriuret Pep (0-125) pg/mL 06/13/24 Range/Units 03:39 Troponin T Baselin e (0-15) ng/L Troponin T 120 Min [place] (0-15) ng/L Delta Troponin T (0-10) ABS# Troponin T Hi Sens 6Hr (0-15) ng/L Troponin T Hi Sens 6Hr Delta (0-12) ng/L NT-Pro-B Natriuret Pep 8301 H (0-125) pg/mL Liver Function 06/11/24 06/12/24 06/13/24 Range/Units 17:35 03:27 03:39 Total Bilirubin 1.8 H 1.6 H 1.3 H (0.15-1.2) mg/dL AST 27 19 16 (0-40) U/L ALT 13 12 10 (0-41) U/L Alkaline Phosphata se 172 H 157 H 143 H (40-130) U/L Albumin 3.0 L 2.7 L 2.7 L (3.5-5.2) g/dL Coags 06/13/24 03:39 PT 16.10 H INR 1.21 H C-Reactive Protein 29.1 H ABG 06/13/24 05:00 Specimen Type Arterial Sample Site Radial, right ABG pH 7.45 ABG pCO2 50.6 H ABG pO2 105.0 H ABG PO2/FiO2 Ratio 500 ABG HCO3 34.7 H ABG Base Excess 9.1 H O2 Delivery Device Room air FiO2 21.0 Vitals: Temperature 98.7 F 06/13/24 12:00 Temperature Source Axillary 06/13/24 12:00 Pulse Rate 95 06/13/24 12:00 Pulse Rhythm Regular 06/13/24 07:38 Pulse Strength 3+ Normal 06/13/24 07:38 Respiratory Rate 22 H 06/13/24 12:00 Respiratory Effort Spontaneous, Non- Labored 06/13/24 08:38 Respiratory Depth Normal 06/13/24 08:38 Respiratory Patter n Normal 06/13/24 08:38 Blood Pressure 136/96 06/13/24 12:00 Blood Pressure Ana Rosa n 109 06/13/24 12:00 Blood Pressure Pos ition Left Lateral 06/11/24 16:00 Pulse Oximetry 98 06/13/24 12:00 Oxygen Delivery Me thod Room Air 06/13/24 12:00 Oxygen Flow Rate 3 06/13/24 09:16 Sepsis Recent Feve r Within 48 Hours No 06/10/24 17:59 Exam: Pre-Anes Outpt Exam: alert, oriented x 3, clear to auscultation bilaterally and regular rate & rhythm Cardiac Studies: Echocardiogram 04/24/24 Echocardiogram Limited Views 06/11/24
--- NOTE | 2024-06-13 13:00 | ANES.PROC ---
Anesthesia Procedures Procedure/Date: 06/13/24 Nerve Block ^: Nerve Block 1: Main Anesthesia: general anesthesia Time Out Performed: Yes Consent: requested by attending/covering physician, from patient, from other, risks and benefits reviewed and patient agrees to proceed Nerve block location: popliteal (20 ml) Anesthesia monitors applied: pulse oximetry, EKG, BP cuff and oxygen Nerve block position: supine Anesthetic Used: ropivicaine 0.5% (20 ml) and with decadron (2 mg) Ultrasound used to: recognize landmarks Nerve Stimulator Used?: No Interscalene/Femoral BLK: 4 stimuplex 21 g needle used for position and inplane approach, visualize local anesthetic spread and no vascular puncture identified Injection: neg aspiration of heme Patient Tolerated Procedure: well Complications: none
--- NOTE | 2024-06-13 13:01 | ANES.PROC ---
Anesthesia Procedures Procedure/Date: 06/13/24 Nerve Block ^: Nerve Block 1: Main Anesthesia: general anesthesia Time Out Performed: Yes Consent: requested by attending/covering physician, from patient, from other, risks and benefits reviewed and patient agrees to proceed Nerve block location: adductor canal Anesthesia monitors applied: pulse oximetry, EKG, BP cuff and oxygen Nerve block position: supine Anesthetic Used: ropivicaine 0.5% (20 ml) and with decadron (2 mg) Ultrasound used to: recognize landmarks and visualize and ID femerol nerve Nerve Stimulator Used?: No Interscalene/Femoral BLK: 4 stimuplex 21 g needle used for position and inplane approach and visualize local anesthetic spread Injection: neg aspiration of heme Patient Tolerated Procedure: well Complications: none
--- NOTE | 2024-06-13 13:05 | P.PN_ITS ---
Vitals/I&O/Wt Last Vital Signs Temp 98.7 F 06/13/24 12:00 Pulse 95 06/13/24 12:00 Resp 22 H 06/13/24 12:00 BP 136/96 06/13/24 12:00 Pulse Ox 98 06/13/24 12:00 O2 Del Method Room Air 06/13/24 12:00 O2 Flow Rate 3 06/13/24 09:16 06/12/24 06/13/24 06/13/24 22:59 06:59 14:59 Intake Total 720 / 1120 350 / 1470 150 / 150 Output Total 1470 / 3170 640 / 3810 650 / 650 Balance -750 / -2050 -290 / -2340 -500 / -500 Weight last 48 hrs Weight 235 lb 14.314 oz Weight 245 lb Physical Exam 2 Urinary Catheter Management: Marsh: Cath Placed During This Visit: yes Reason for Continuing Indwelling Catheter: Accurate Measurement of Urinary Output in Critically Ill Patients Urinary Catheter Date of Insertion: 06/10/24 Urinary Catheter Time of Insertion: 21:38 Data 06/13/24 03:39 06/13/24 03:39 Micro: Microbiology 06/10/24 21:35 Urine Culture - Final Urine,Clean Catch 06/12/24 14:30 Gram Stain - Final Leg - Left 06/11/24 17:29 Gram Stain - Final Leg - #2 Wound Culture - Preliminary 06/11/24 17:29 Gram Stain - Final Leg - #1 Wound Culture - Preliminary A&P Assessment and plan (1) Venous stasis ulcers of both lower extremities: Plan Sharp excisional debridement of right lower extremity We were able to get a hold of the son later on in the day. The risk benefits of the procedure, including but limited to, bleeding, scar, numbness, pain, recurrent infection, need for further surgery potentially resulting in amputation, were explained. He is understand the risks and wished to proceed PDMP PDMP Reviewed: Not Reviewed Attestations 2 Medical Necessity Statement*: Per primary Coding Level of Care Code Acute Code for Chg Fwd Diagnoses Venous stasis ulcers of both lower extremities I83.019; I83.029; L97.919; L97.924
--- NOTE | 2024-06-13 14:54 | PC.NURSE ---
Pt left ICU for surgery.
--- NOTE | 2024-06-13 15:06 | PC.NURSE ---
This nurse took report from ELIZABETH Timmons in ICU at 1505. Pt to OR first for excisional debridement prior to transferring to our department.
--- NOTE | 2024-06-13 15:10 | PC.NURSE ---
[facility] Report given to ELIZABETH Liao. NO further questions.
--- NOTE | 2024-06-13 15:19 | XR_ITS ---
WS: [id number] Left foot, 3 views, Clinical Data: Draining surgical wound Comparison: Left foot, 06/02/2022 Findings: There is absence of the left second toe. There is residual soft tissue and faint calcification at the level of the left second toe proximal phalanx. Irregularity and osteoarthritis of the left great toe MTP joint is noted. The osteochondroma at the lateral aspect of the distal first metatarsal is no longer present. The remainder of the left foot shows no change from before. XR/XR foot LT 2V [id number] Impression: 1. Absence of left second toe with calcification and residual soft tissue at th e level of the absent second toe proximal phalanx. 2. 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
--- NOTE | 2024-06-13 15:24 | PM.OP ---
Operative Report Date of procedure: June 13, 2024 Pre-op diagnosis: Bilateral lower extremity venous stasis ulcers Surgeon: Francisco Javier Cervantes DO Brief History: This is a pleasant 63-year-old gentleman with bilateral lower extremity venous stasis ulcers. Sharp excisional debridement is indicated. The risks and benefits were explained and documented. Informed consent was obtained. Procedure: Pre-op diagnosis: Bilateral lower extremity venous stasis ulcers Post-op diagnosis: same Procedure done: Sharp excisional debridement of venous stasis ulcers right leg, down to muscle and fascia, for a total surface area greater than 125 sq cm Specimens removed/disposition: Tissue sent for culture from ulcers Surgeon: Francisco Javier Cervantes DO Anesthesia: Nerve Block Estimated blood loss (mL): 5 Complications: None apparent Brief History: This is a 63-year-old gentleman with chronic venous stasis ulcers of the bilateral lower extremities. He is a high risk cardiac patient. Therefore we elected to do nerve block instead of intubation. Because of this we have to do 1 extremity at a time. Sharp excisional debridement right lower extremity is indicated. The risks and benefits were explained to the patient. He was excepting of the risks and wished to proceed. Procedure: Patient was wheeled operative room and placed on the OR table in the supine position. A right lower extremity nerve block was placed by the department anesthesia. The right lower extremity was inspected prepped and draped in usual sterile fashion. Patient had a total of 7 chronic venous stasis ulcers on his right leg, 3 anterior, 1 lateral and 3 posterior. All ulcers were sharply excised using curettes down to healthy bleeding tissue. It was performed down to muscle and fascia. Anterior ulcers measured 13.7 x 4.2 x 0.5 cm and 2.6 x 2.2 x 0.2 cm and 2.6 x 1.8 x 0.3 cm. Lateral ulcer measured 5.7 x 0.4 x 0.3 cm. Posterior ulcers measured 4.1 x 2.3 x 0.3 cm and 2.7 x 1.5 x 0.3 cm and 1.9 x 0.7 x 0.3 cm. Greater than 125 cm? of tissue was sharply excised and debrided. Sterile bandages were applied. Patient tolerated procedure well.
--- NOTE | 2024-06-13 15:58 | PC.NURSE ---
This nurse took report from ELIZABETH Cortez in PACU at 1556.
--- NOTE | 2024-06-13 16:24 | PM.PN ---
Subjective Subjective: Patient was seen this morning, he is alert and oriented x 2, follows all commands, denies any chest pain, palpitations, does report shortness of breath, discussed his generalized weakness, his bilateral extremity wounds, high would highly recommend for him to consider [facility] for rehab wound care versus inpatient rehab however he declines, Vitals/I&O/Wt Last Vital Signs Temp 97.3 F L 06/13/24 16:00 Pulse 95 06/13/24 16:00 Resp 17 06/13/24 16:00 BP 135/90 06/13/24 16:00 Pulse Ox 92 06/13/24 16:00 O2 Del Method Room Air 06/13/24 16:00 O2 Flow Rate 2 06/13/24 14:00 06/13/24 06/13/24 06/13/24 06:59 14:59 22:59 Intake Total 350 / 1770 150 / 150 350 / 500 Output Total 640 / 3810 650 / 650 2 / 652 Balance -290 / -2040 -500 / -500 348 / -152 Weight last 48 hrs Weight 107 kg Weight 111.13 kg Physical Exam Const: COMMON NORMALS: no acute distress and patient oriented x3 Resp: COMMON NORMALS: normal respiratory effort, No retractions, No use of accessory muscles and clear to auscultation bilaterally AUSCULTATION: clear to auscultation bilaterally Cardio: COMMON NORMALS: regular rate, regular rhythm, S1 normal heart sound present and S2 normal heart sound present RATE: regular rate RHYTHM: regular rhythm HEART SOUNDS: S1 normal heart sound present and S2 normal heart sound present GI: COMMON NORMALS: Normal to inspection, nondistended, normoactive bowel sounds present and non-tender Extremity: NARRATIVE EXTREMITY EXAM: 1+ edema Neuro: COMMON NORMALS: patient oriented x3 Psych: COMMON NORMALS: mental status grossly normal Skin: NARRATIVE SKIN EXAM: Bilateral extremities wrapped Urinary Catheter Management: Marsh: Cath Placed During This Visit: yes Reason for Continuing Indwelling Catheter: Accurate Measurement of Urinary Output in Critically Ill Patients Urinary Catheter Date of Insertion: 06/10/24 Urinary Catheter Time of Insertion: 21:38 Data 06/13/24 03:39 06/13/24 03:39 Micro: Microbiology 06/12/24 14:30 Gram Stain - Final Leg - Left Anaerobic Culture - Preliminary Wound Culture - Preliminary 06/11/24 17:29 Gram Stain - Final Leg - #2 Wound Culture - Preliminary Gram Negative Rods 06/11/24 17:29 Gram Stain - Final Leg - #1 Wound Culture - Preliminary Gram Negative Rods 06/10/24 21:35 Urine Culture - Final Urine,Clean Catch A&P Assessment and plan (1) Gout: Qualifiers: Gout site: toe Gout etiology: unspecified cause Chronicity: chronic Laterality: right Presence of tophus: without tophus Qualified Code(s): M1A.9XX0 - Chronic gout, unspecified, without tophus (tophi) (2) Open wound of both lower extremities: (3) Bilateral leg ulcer: Qualifiers: Non-pressure ulcer stage: unspecified non-pressure ulcer stage Qualified Code(s): L97.919 - Non-pressure chronic ulcer of unspecified part of right lower leg with unspecified severity; L97.929 - Non-pressure chronic ulcer of unspecified part of left lower leg with unspecified severity (4) Lower extremity edema: (5) Anasarca: (6) Acute exacerbation of CHF (congestive heart failure): Qualifiers: Heart failure type: unspecified Qualified Code(s): I50.9 - Heart failure, unspecified (7) Hypertension: Qualifiers: Hypertension type: primary hypertension Qualified Code(s): I10 - Essential (primary) hypertension (8) Type 2 diabetes mellitus: Qualifiers: Diabetes mellitus complication detail: with peripheral angiopathy without gangrene Diabetes mellitus complication status: with circulatory complication Diabetes mellitus intermediate school teacher insulin use: without intermediate school teacher use Qualified Code(s): E11.51 - Type 2 diabetes mellitus with diabetic peripheral angiopathy without gangrene (9) BMI 37.0-37.9, adult: (10) History of hernia repair: (11) Acute kidney injury: (12) Acute lactic acidosis: (13) Bilateral cellulitis of lower leg: (14) Influenza A: (15) Seropositive rheumatoid arthritis of multiple sites: (16) Shock: (17) Cardiogenic shock: (18) Septic shock: (19) Acute encephalopathy: (20) Cellulitis: (21) Sepsis: Plan Acute encephalopathy, resolving -Multifactorial from sepsis, -Cellulitis -Influenza A -Head CT no acute findings -Neurochecks -Aspiration precautions Shock, resolved -Multifactorial -Cardiogenic shock -Septic shock -Could also be from diuresis -Avoid fluid therapy due to risk of fluid overload -Maintain MAP greater than 65 - moved to ICU Acute systolic CHF exacerbation CONCLUSIONS Limited echo Moderately increased left ventricular cavity size. Severely decreased left ventricular systolic function. Left ventricular ejection fraction is estimated at 15 %. Moderate biatrial enlarment There is no pericardial effusion. Anasarca Morbid obese Noncompliant -13L Diuresis on hold Place Marsh catheter History of third-degree AV block status post pacemaker placement Bilateral lower extremity venous stasis ulcer/purulent cellulitis History of diabetes A1c 6.5 Arterial ultrasound done in April had no acute findings 05/02 bilateral lower extremity debridement amputation of left second toe evaluated vascular surgery no intervention kept on daptomycin, Zosyn concern for MRSA, fungal tissue culture with scant growth penicillium species, likely contamination, discharged on inpatient rehab on IV antibiotics Zosyn and daptomycin with end date of 05/19/2024 -Wound culture in the past showed Pseudomonas, micro 80s, Bacteroides fragilis Enterococcus, Staph aureus - patient on linezolid and Zosyn -As per the patient his left second toe was amputated at [facility] recently Will use Santyl dressing, apply bacitracin, -Patient's status post Sharp excisional debridement of venous stasis ulcers left leg for a total surface area greater than 60 cm left leg postop day 1 -Plan on right leg debridement today General Surgery on consult -Follow wound cultures -MRSA nares -Blood cultures N.p.o. can transition to cardiac diet Breakdown of left second toe amputation site, will have orthopedic service to take a look at it High lactic acid: Likely from sepsis, resolving Sepsis, sepsis features met given acute encephalopathy, shock, elevated lactic acid elevated inflammatory markers, resolving Hypomagnesemia: IV mag given Chronic kidney disease: Creatinine seems to be around baseline Abnormal D-dimer: t venous Doppler negative for DVT Influenza A: Tamiflu Goals of care discussed with the patient, full code DVT prophylaxis: Heparin Plan for today look to spoke to general surgery spoke to orthopedic service, continue IV antibiotics, IV diuresis on hold the patient is euvolemic PDMP PDMP Reviewed: Not Reviewed Attestations Medical Necessity Statement*: Patient requires hospitalization for cellulitis bilateral extremities, acute CHF exacerbation Diagnoses Chronic gout involving toe of right foot without tophus, unspecified cause M1A.9XX0 Gout site: toe Gout etiology: unspecified cause Chronicity: chronic Laterality: right Presence of tophus: without tophus Open wound of both lower extremities S81.801A; S81.802A Ulcers of both lower extremities, unspecified ulcer stage L97.919; L97.929 Non-pressure ulcer stage: unspecified non-pressure ulcer stage Lower extremity edema R60.0 Anasarca R60.1 Acute exacerbation of CHF (congestive heart failure) I50.9 Heart failure type: unspecified Primary hypertension I10 Hypertension type: primary hypertension Type 2 diabetes mellitus with diabetic peripheral angiopathy without gangrene, without long-term current use of insulin E11.51 Diabetes mellitus complication detail: with peripheral angiopathy without gangrene Diabetes mellitus complication status: with circulatory complication Diabetes mellitus mcfp insulin use: without mcfp use BMI 37.0-37.9, adult Z68.37 History of hernia repair Z98.890; Z87.19 Acute kidney injury N17.9 Acute lactic acidosis E87.21 Bilateral cellulitis of lower leg L03.116; L03.115 Influenza A J10.1 Seropositive rheumatoid arthritis of multiple sites M05.79 Shock R57.9 Cardiogenic shock R57.0 Septic shock A41.9; R65.21 Acute encephalopathy G93.40 Cellulitis L03.90 Sepsis A41.9
[2024-06-13 16:47] LABS: Glucose Point of Care 112 mg/dL (70-110)
[2024-06-13] MEDS: carvedilol 6.25 mg Tablet PO (17:09)
--- NOTE | 2024-06-13 17:58 | PM.CONSULT ---
Providers/Reason For Consult Consulting Physician/Specialty*: Orthopedic surgery Reason for Consult*: CHF exacerbation Requesting Physician: Dr. Angel MD Attending Physician: Ashish Ortiz MD Primary Care Provider: Itz Pierson MD History of Present Illness History of Present Illness Ely Hare is a 63 year old male Review of Systems Narrative: Consitutional: denies fever, chills, body aches, or changes in appetite, denies abnormal weight loss Eyes: Denies changes in vision Card: Denies chest pain, palpitations, irregular heart rhythm, edema, syncope, shortness of breath, orthopnea, leg pain with exertion Resp: Denies shortness of breath, denies hemoptysis, denies cough GI: denies abdominal pain, denies nausea or voimting, denies blood in stool : denies blood in urine, denies dysuria Musc: reports bilateral lower leg pain at his wounds Skin: reports chronic lower extremity wounds with infection Neuro: Denies numbness in extremities, h/a, s/s of stroke Robert: Denies easy bruiding/bleeding Medications/Allergies Home Medications ?Medication ?Instructions ?Recorded ?Confirmed ?Last Taken ?Type docusate sodium 100 mg capsule 100 mg PO BID #14 caps 11/14/22 06/11/24 Unknown Rx (Colace) carvedilol 6.25 mg tablet 6.25 mg PO BID 04/24/24 06/11/24 Unknown History sacubitril 24 mg-valsartan 26 mg 1 tab PO BID 04/24/24 06/11/24 Unknown History tablet (Entresto) Allergies Allergy/AdvReac Type Severity Reaction Status Date / Time No Known Allergies Allergy Verified 01/22/24 17:16 Current Medications Generic Name Dose Route Start Last Admin Trade Name Freq PRN Reason Stop Dose Admin Bacitracin 1 applic 06/10/24 22:19 06/13/24 16:25 Bacitracin Ointment 28 Gm TOPICAL Not Given TID [facility] Protocol Carvedilol 6.25 mg 06/11/24 09:00 06/13/24 17:09 Carvedilol 6.25 Mg Tablet PO 6.25 mg BID AMBER Administration Heparin Sodium (Porcine) 5,000 unit 06/10/24 20:25 06/13/24 08:42 Heparin 5,000 Unit/Ml Inj 1 Ml SUBCUT 5,000 unit Q12H AMBER Administration Linezolid 600 mg in 300 mls @ 300 mls/hr 06/11/24 09:00 06/13/24 15:11 Zyvox Premix IV Infused Q12H AMBER Infusion Protocol Piperacillin Sod/Tazobactam 50 mls @ 12.5 mls/hr 06/11/24 04:00 06/13/24 16:25 Sod 3.375 gm/ Sodium Chloride IV Infused Q8H AMBER Infusion Insulin Human Lispro 0 unit 06/11/24 08:00 06/13/24 17:04 Insulin Lispro 100 Unit/1 Ml SUBCUT Not Given TIDWM AMBER Protocol Morphine Sulfate 2 mg 06/11/24 11:20 06/13/24 08:38 Morphine 4 Mg/Ml Sdv 1 Ml IVP 2 mg Q4H PRN Administration SEVERE PAIN Nystatin 1 applic 06/13/24 09:00 06/13/24 17:08 Nystatin Powder 15 Gm Btl TOPICAL 1 applic BID AMBER Administration Oseltamivir Phosphate 30 mg 06/11/24 18:00 06/13/24 17:09 Oseltamivir Phosphate 30 Mg Capsule PO 30 mg BID AMBER Administration Pantoprazole Sodium 40 mg 06/11/24 09:00 06/13/24 17:[address] 40 Mg Tablet PO 40 mg BID AMBER Administration Potassium Chloride 20 meq 06/11/24 09:00 06/13/24 08:42 Potassium Chloride Er 20 Meq Tablet PO 20 meq DAILY AMBER Administration Senna/Docusate Sodium 1 tab 06/11/24 09:00 06/13/24 08:42 Sennosides-Docusate Tablet PO 1 tab DAILY AMBER Administration Sucralfate 1 gm 06/11/24 11:30 06/13/24 17:08 Sucralfate 1 Gm/10 Ml Oral Liq Udc PO 1 gm Q6H AMBER Administration PFSH Acute PFSH: Medical History Third degree heart block Status post pacemaker placement, 2024 [facility] Congestive heart failure Psychiatric care Gout Immunization counseling Seropositive rheumatoid arthritis of multiple sites Hypertension Surgical History History of hernia repair Family History Mother Cancer breast Father Cancer non hodgkins lymphoma Other CAD (coronary artery disease) Diabetes Family history of premature coronary artery disease Denies family history of Rheumatoid arthritis Lupus Hyperlipidemia Chronic kidney disease (CKD) Lung disease Hypertension Stroke Social History Smoking and tobacco/nicotine status: never used tobacco/nicotine Alcohol intake: never Substance/Drug Use: never Lives independently: Yes Marital status: Single Number of children: 1 Current occupational status: retired Special jennifer needs: No Agree to transfusion: Yes Vitals/I&O/Wt Last Vital Signs Temp 97.3 F L 06/13/24 16:00 Pulse 95 06/13/24 16:00 Resp 17 06/13/24 16:00 BP 135/90 06/13/24 16:00 Pulse Ox 92 06/13/24 16:00 O2 Del Method Room Air 06/13/24 16:00 O2 Flow Rate 2 06/13/24 14:00 06/13/24 06/13/24 06/13/24 06:59 14:59 22:59 Intake Total 350 / 1770 150 / 150 400 / 550 Output Total 640 / 3810 650 / 650 2 / 652 Balance -290 / -2040 -500 / -500 398 / -102 Weight last 48 hrs Weight 235 lb 14.314 oz Weight 245 lb Physical Exam Narrative: General: No apparent distress, healthy appearing, well nourished HENMT: normoceophalic Muskuloskeletal: Full ROM Lymphatic: no lymphedema noted Respiratory: Normal respiratory effort, clear to auscultation bilaterally throughout all lung brasher, no use of accessory muscles Cardio: No JVD, regular rate, regular rhythm, S1 S2 normal, no murmurs, peripheral pulses 2+ throughout GI: Normal to inspection, nondistended Extremities: Full ROM, normal, normal capillary refill, no cyanosis or edema Neuro: Alert and oriented x4, no focal motor deficits Psych: Affect normal, denies suicidal ideation, mental status grossly normal Skin: Bilateral lower extremities are wrapped up due to wounds, he has a toe amputation present that looks necrotic at the base Urinary Catheter Management: Marsh: Cath Placed During This Visit: yes Reason for Continuing Indwelling Catheter: Accurate Measurement of Urinary Output in Critically Ill Patients Urinary Catheter Date of Insertion: 06/10/24 Urinary Catheter Time of Insertion: 21:38 Data 06/13/24 03:39 06/13/24 03:39 Micro: Microbiology 06/12/24 14:30 Gram Stain - Final Leg - Left Anaerobic Culture - Preliminary Wound Culture - Preliminary 06/11/24 17:29 Gram Stain - Final Leg - #2 Wound Culture - Preliminary Gram Negative Rods 06/11/24 17:29 Gram Stain - Final Leg - #1 Wound Culture - Preliminary Gram Negative Rods 06/10/24 21:35 Urine Culture - Final Urine,Clean Catch Other data: Limited Echo Moderately increased left ventricular cavity size. Severely decreased left ventricular systolic function. Left ventricular ejection fraction is estimated at 15 %. Moderate biatrial enlarment There is no pericardial effusion. Trop [id number] A&P Assessment and plan (1) Hypertensive urgency: (2) Hypertension: Qualifiers: Hypertension type: primary hypertension Qualified Code(s): I10 - Essential (primary) hypertension (3) Congestive heart failure: Qualifiers: Heart failure chronicity: acute on chronic Heart failure type: systolic Qualified Code(s): I50.23 - Acute on chronic systolic (congestive) heart failure (4) Acute exacerbation of CHF (congestive heart failure): Qualifiers: Heart failure type: unspecified Qualified Code(s): I50.9 - Heart failure, unspecified Plan Patient has come in with CHF exacerbation and infected lower extremity wounds. He has been diuresed well and overall looks euvolemic. Can hold lasix for now. Continue carvedilol. Would recommend adding back Entresto when creatinine returns to baseline. Will titrate diuretics to patient's response. In the future, patient may require CTA AFRO as well to evaluate for potential PAD not seen on US, as patient has a toe ulcer that could be distal PAD. Once creatinine has returned to baseline, will consider obtaining this. We will need to discuss life[facility] in the future. We will obtain records from [facility] and [facility] as well. Thank you, Dr. Ortiz, for the opportunity to care for this very pleasant 63 year old gentleman. PDMP PDMP Reviewed: Not Reviewed Consult Attestations Medical Necessity Statement: Deferred to primary care. Coding Level of Care Code Acute Code for Chg Fwd Diagnoses Hypertensive urgency I16.0 Primary hypertension I10 Hypertension type: primary hypertension Acute on chronic systolic congestive heart failure I50.23 Heart failure chronicity: acute on chronic Heart failure type: systolic Acute exacerbation of CHF (congestive heart failure) I50.9 Heart failure type: unspecified
--- NOTE | 2024-06-13 17:59 | PM.CONSULT ---
Providers/Reason For Consult Consulting Physician/Specialty*: Dr. Santi Prescott MD, orthopedic surgery Reason for Consult*: Status post second toe amputation left foot, nonhealing Attending Physician: Ashish Ortiz MD Primary Care Provider: Itz Pierson MD History of Present Illness History of Present Illness Ely Hare is a 63 year old male who has a long history of medical problems over the last month or 2. He has had several cardiac issues as well as complications from diabetes. He has recently been having cellulitis/skin ulcerations of his lower extremity debrided by general surgery here at [facility]. While he was up at [facility] in [place] he had his second toe amputated of his left foot secondary to gangrene as reported to myself. Admitting physician now concerned because it does not appear to be healing and there appears to be continued drainage from the area. Review of Systems General: Reports: 10 or more systems reviewed and unremarkable except in HPI and below and ROS unobtainable due to medical condition Narrative: Consitutional: denies fever, chills, body aches, or changes in appetite, denies abnormal weight loss Eyes: Denies changes in vision Card: Denies chest pain, palpitations, irregular heart rhythm, edema, syncope, shortness of breath, orthopnea, leg pain with exertion Resp: Denies shortness of breath, denies hemoptysis, denies cough GI: denies abdominal pain, denies nausea or voimting, denies blood in stool : denies blood in urine, denies dysuria Musc: reports bilateral lower leg pain at his wounds Skin: reports chronic lower extremity wounds with infection Neuro: Denies numbness in extremities, h/a, s/s of stroke Robert: Denies easy bruiding/bleeding Const: Reports: chills, change in weight, fatigue, malaise and other (Falls); Denies: fever(s) Eyes: Denies: change in vision ENMT: Denies: throat pain, ear or mastoid pain or nasal discharge Card: Reports: edema and swelling of feet/ankles; Denies: chest pain, palpitations or lightheadedness Resp: Reports: dyspnea; Denies: productive cough or wheezing GI: Reports: nausea, bloating and other (Abdominal swelling); Denies: abdominal pain, vomiting, hematemesis, coffee ground emesis, diarrhea or constipation : Denies: flank pain, difficulty urinating, dysuria or urinary frequency Musc: Denies: neck pain, back pain or joint pain Skin/Breast: Reports: rash, non-healing lesions, lesions and other (Jaundice) Neuro: Reports: dizziness; Denies: headache(s) or numbness in extremities Medications/Allergies Home Medications ?Medication ?Instructions ?Recorded ?Confirmed ?Last Taken ?Type docusate sodium 100 mg capsule 100 mg PO BID #14 caps 11/14/22 06/11/24 Unknown Rx (Colace) carvedilol 6.25 mg tablet 6.25 mg PO BID 04/24/24 06/11/24 Unknown History sacubitril 24 mg-valsartan 26 mg 1 tab PO BID 04/24/24 06/11/24 Unknown History tablet (Entresto) Allergies Allergy/AdvReac Type Severity Reaction Status Date / Time No Known Allergies Allergy Verified 01/22/24 17:16 Current Medications Generic Name Dose Route Start Last Admin Trade Name Luz Maria PRN Reason Stop Dose Admin Bacitracin 1 applic 06/10/24 22:19 06/13/24 16:25 Bacitracin Ointment 28 Gm TOPICAL Not Given TID [facility] Protocol Carvedilol 6.25 mg 06/11/24 09:00 06/13/24 17:09 Carvedilol 6.25 Mg Tablet PO 6.25 mg BID AMBER Administration Heparin Sodium (Porcine) 5,000 unit 06/10/24 20:25 06/13/24 08:42 Heparin 5,000 Unit/Ml Inj 1 Ml SUBCUT 5,000 unit Q12H [facility] Administration Linezolid 600 mg in 300 mls @ 300 mls/hr 06/11/24 09:00 06/13/24 15:11 Zyvox Premix IV Infused Q12H [facility] Infusion Protocol Piperacillin Sod/Tazobactam 50 mls @ 12.5 mls/hr 06/11/24 04:00 06/13/24 16:25 Sod 3.375 gm/ Sodium Chloride IV Infused Q8H [facility] Infusion Insulin Human Lispro 0 unit 06/11/24 08:00 06/13/24 17:04 Insulin Lispro 100 Unit/1 Ml SUBCUT Not Given TIDWM [facility] Protocol Morphine Sulfate 2 mg 06/11/24 11:20 06/13/24 08:38 Morphine 4 Mg/Ml Sdv 1 Ml IVP 2 mg Q4H PRN Administration SEVERE PAIN Nystatin 1 applic 06/13/24 09:00 06/13/24 17:08 Nystatin Powder 15 Gm Btl TOPICAL 1 applic BID AMBER Administration Oseltamivir Phosphate 30 mg 06/11/24 18:00 06/13/24 17:09 Oseltamivir Phosphate 30 Mg Capsule PO 30 mg BID AMBER Administration Pantoprazole Sodium 40 mg 06/11/24 09:00 06/13/24 17:[address] 40 Mg Tablet PO 40 mg BID AMBER Administration Potassium Chloride 20 meq 06/11/24 09:00 06/13/24 08:42 Potassium Chloride Er 20 Meq Tablet PO 20 meq DAILY AMBER Administration Senna/Docusate Sodium 1 tab 06/11/24 09:00 06/13/24 08:42 Sennosides-Docusate Tablet PO 1 tab DAILY AMBER Administration Sucralfate 1 gm 06/11/24 11:30 06/13/24 17:08 Sucralfate 1 Gm/10 Ml Oral Liq Udc PO 1 gm Q6H AMBER Administration PFSH Acute PFSH: Medical History Third degree heart block Status post pacemaker placement, 2024 [facility] Congestive heart failure Psychiatric care Gout Immunization counseling Seropositive rheumatoid arthritis of multiple sites Hypertension Surgical History History of hernia repair Family History Mother Cancer breast Father Cancer non hodgkins lymphoma Other CAD (coronary artery disease) Diabetes Family history of premature coronary artery disease Denies family history of Rheumatoid arthritis Lupus Hyperlipidemia Chronic kidney disease (CKD) Lung disease Hypertension Stroke Social History Smoking and tobacco/nicotine status: never used tobacco/nicotine Alcohol intake: never Substance/Drug Use: never Lives independently: Yes Marital status: Single Number of children: 1 Current occupational status: retired Special jennifer needs: No Agree to transfusion: Yes Dietary Habits: Current diet type/program: regular Caffeine: Yes Vitals/I&O/Wt Last Vital Signs Temp 97.3 F L 06/13/24 16:00 Pulse 95 06/13/24 16:00 Resp 17 06/13/24 16:00 BP 135/90 06/13/24 16:00 Pulse Ox 92 06/13/24 16:00 O2 Del Method Room Air 06/13/24 16:00 O2 Flow Rate 2 06/13/24 14:00 06/13/24 06/13/24 06/13/24 06:59 14:59 22:59 Intake Total 350 / 1770 150 / 150 400 / 550 Output Total 640 / 3810 650 / 650 2 / 652 Balance -290 / -2040 -500 / -500 398 / -102 Weight last 48 hrs Weight 235 lb 14.314 oz Weight 245 lb Physical Exam Narrative: General: No apparent distress, healthy appearing, well nourished HENMT: normoceophalic Muskuloskeletal: Full ROM Lymphatic: no lymphedema noted Respiratory: Normal respiratory effort, clear to auscultation bilaterally throughout all lung brasher, no use of accessory muscles Cardio: No JVD, regular rate, regular rhythm, S1 S2 normal, no murmurs, peripheral pulses 2+ throughout GI: Normal to inspection, nondistended Extremities: Full ROM, normal, normal capillary refill, no cyanosis or edema Neuro: Alert and oriented x4, no focal motor deficits Psych: Affect normal, denies suicidal ideation, mental status grossly normal Skin: Bilateral lower extremities are wrapped up due to wounds, he has a toe amputation present that looks necrotic at the base Orthopedic evaluation demonstrates loss of second toe on the left foot. There is a large eschar over the surgical site with sutures still in place. There is minimal to no erythema. There is no active drainage at this time. I evaluated the patient in the postop holding area and surgery soon after general surgery has debrided his lower extremity wounds. I spoke with general surgery and they feel that there is no need to do anything with the left foot as it appears to be a healing surgical wound. I have to agree with that. Urinary Catheter Management: Marsh: Cath Placed During This Visit: yes Reason for Continuing Indwelling Catheter: Accurate Measurement of Urinary Output in Critically Ill Patients Urinary Catheter Date of Insertion: 06/10/24 Urinary Catheter Time of Insertion: 21:38 Data 06/13/24 03:39 06/13/24 03:39 Micro: Microbiology 06/12/24 14:30 Gram Stain - Final Leg - Left Anaerobic Culture - Preliminary Wound Culture - Preliminary 06/11/24 17:29 Gram Stain - Final Leg - #2 Wound Culture - Preliminary Gram Negative Rods 06/11/24 17:29 Gram Stain - Final Leg - #1 Wound Culture - Preliminary Gram Negative Rods 06/10/24 21:35 Urine Culture - Final Urine,Clean Catch A&P Assessment and plan (1) Hypertensive urgency: (2) Hypertension: Qualifiers: Hypertension type: primary hypertension Qualified Code(s): I10 - Essential (primary) hypertension (3) Congestive heart failure: Qualifiers: Heart failure chronicity: acute on chronic Heart failure type: systolic Qualified Code(s): I50.23 - Acute on chronic systolic (congestive) heart failure (4) Acute exacerbation of CHF (congestive heart failure): Qualifiers: Heart failure type: unspecified Qualified Code(s): I50.9 - Heart failure, unspecified (5) Delayed surgical wound healing of toe amputation stump: Plan at this time assist with wound care and observation. There does not appear to be any need for any further surgical intervention at this time. All tissue around the wound appears to be healing and no signs of breakdown or further gangrene. I will continue to follow patient while he is in the hospital. Plan Patient has come in with CHF exacerbation and infected lower extremity wounds. He has been diuresed well and overall looks euvolemic. Can hold lasix for now. Continue carvedilol. Would recommend adding back Entresto when creatinine returns to baseline. Will titrate diuretics to patient's response. In the future, patient may require CTA AFRO as well to evaluate for potential PAD not seen on US, as patient has a toe ulcer that could be distal PAD. Once creatinine has returned to baseline, will consider obtaining this. We will need to discuss [facility] in the future. We will obtain records from [facility] and [employer] [facility] as well. Thank you, Dr. Ortiz, for the opportunity to care for this very pleasant 63 year old gentleman. PDMP PDMP Reviewed: Not Reviewed Coding Level of Care Code 51886 Diagnoses Hypertensive urgency I16.0 Primary hypertension I10 Hypertension type: primary hypertension Acute on chronic systolic congestive heart failure I50.23 Heart failure chronicity: acute on chronic Heart failure type: systolic Acute exacerbation of CHF (congestive heart failure) I50.9 Heart failure type: unspecified Delayed surgical wound healing of toe amputation stump T87.89
[2024-06-13 20:41] LABS: Glucose Point of Care 192 mg/dL (70-110)
[2024-06-14] VITALS (7 sets, daily range): BP systolic 120–141; BP diastolic 68–96; PULSE 76–91; RESP 15–19; TEMP 36.3–36.6; O2SAT 92–99
[2024-06-14 04:26] LABS: Basophils % 0.5 %; Eosinophils % 0.1 %; Hematocrit 36.6 % (37-53); Lymphocytes # 0.6 10^3/uL (0.8-4.8); Lymphocytes % 7.4 %; Mean Corpuscular HGB Conc 30.1 g/dL (30-55); Mean Corpuscular Hemoglobin 23.4 pg (27-33); Mean Corpuscular Volume 77.9 fl (82-101); Mean Platelet Volume 9.2 fL (7.4-10.4); Monocytes # 0.7 10^3/uL (0.2-0.9); Monocytes % 9.5 %; Neutrophils # 6.26 10^3/uL (1.8-7.7); Neutrophils % 81.8 %; Nucleated Red Blood Cells % 0 %; Platelet Count 322 10^3/cmm (157-399); Red Cell Distribution Width 27.5 % (12.1-15.1); White Blood Count 7.66 10^3/uL (3.29-11.43)
[2024-06-14] MEDS: piperacillin-tazobactam 3.375 GM in sodium chloride 0.9% (plus) 50 ML IV ×3 (04:35→21:31)
[2024-06-14 04:39] LABS: INR 1.15 (0.8-1.2)
[2024-06-14 04:53] LABS: Alanine Aminotransferase 10 U/L (0-41); Albumin Level 2.8 g/dL (3.5-5.2); Alkaline Phosphatase 137 U/L (40-130); Anion Gap 14.9 (5-19); Aspartate Amino Transferase 16 U/L (0-40); Blood Urea Nitrogen 23 mg/dL (8-23); C Reactive Protein 36.4 mg/L (0.0-4.9); Calcium 7.8 mg/dL (8.5-10.5); Carbon Dioxide 32 mmol/L (22-29); Chloride 95 mmol/L (98-107); Creatinine Clr Calc Pharmacy 55.5618; Globulin 2.9 g/dL (1.3-4.6); Glomerular Filtration Rate 43.7 mL/min (90-130); Glucose 177 mg/dL (65-115); Magnesium 1.5 mg/dL (1.7-2.3); Osmolality Calculated 294 mOsm/kg (285-295); Phosphorus 3.3 mg/dL (2.5-4.5); Potassium 3.9 mmol/L (3.5-5.1); Sodium 138 mmol/L (136-145); Total Bilirubin 1.4 mg/dL (0.15-1.2); Total Protein 5.7 g/dL (6.6-8.7)
[2024-06-14 04:54] LABS: Lactate (Lactic Acid level) 2.6 mmol/L (0.5-2.2)
[2024-06-14 04:56] LABS: NT Pro B Type Natriuretic Pept 10326 pg/mL (0-125); Procalcitonin 0.83 ng/mL (0-0.5)
[2024-06-14] MEDS: sucralfate 1 gm/10 mL Oral Liq UDC PO ×4 (04:56→23:06)
[2024-06-14 05:25] LABS: ABG PH Result 7.47 (7.35-7.45); Arterial Blood Gas Hematocrit 36.3 % (42-52); Base Excess ABG 8.4 mmol/L (-2.0-2.0); Blood Gas Allen Test Pos; Blood Gas Operator Identificat BUSJA; Blood Gas Sample Site Radial, left; Blood Gas Sample Type Arterial; Oxygen Device ROOM AIR; PO2 FiO2 Ratio Arterial Blood 338
[2024-06-14 06:33] LABS: Glucose Point of Care 170 mg/dL (70-110)
[2024-06-14] MEDS: pantoprazole DR 40 mg Tablet PO ×2 (09:11→16:32)
[2024-06-14] MEDS: linezolid premix 600 MG/300 ML PREMIX 300 MG IV ×2 (09:11→20:28)
[2024-06-14] MEDS: potassium chloride ER 20 mEq Tablet PO (09:11)
[2024-06-14] MEDS: carvedilol 6.25 mg Tablet PO ×2 (09:11→16:32)
[2024-06-14] MEDS: sennosides-docusate Tablet 1 TAB PO (09:11)
[2024-06-14] MEDS: oseltamivir phosphate 30 mg Capsule PO ×2 (09:11→16:33)
[2024-06-14] MEDS: heparin 5,000 unit/mL INJ 1 mL 5000 UNIT SUBCUT ×2 (09:12→20:27)
[2024-06-14] MEDS: insulin lispro 100 unit/1 mL SUBCUT ×2 (09:15→11:39)
--- NOTE | 2024-06-14 10:10 | P.PN_ITS ---
Subjective 2 Subjective: Patient seen and examined. He is much more alert today. Pain controlled Vitals/I&O/Wt Last Vital Signs Temp 98.2 F 06/15/24 07:53 Pulse 82 06/15/24 09:19 Resp 16 06/15/24 09:19 BP 185/88 06/15/24 07:53 Pulse Ox 95 06/15/24 09:19 O2 Del Method Room Air 06/15/24 09:19 O2 Flow Rate 2 06/13/24 16:45 06/14/24 06/15/24 06/15/24 22:59 06:59 14:59 Intake Total 350 / 1215 50 / 1265 480 / 480 Output Total 450 / 900 450 / 1350 Balance -100 / 315 -400 / -85 480 / 480 Weight last 48 hrs Weight 229 lb Weight 230 lb 6.129 oz Physical Exam 2 Narrative: General: No acute distress, awake alert and oriented x 3 Extremities: Wounds on his bilateral legs without erythema or exudate Urinary Catheter Management: Marsh: Cath Placed During This Visit: yes, but has since been removed by the nurse Reason for Continuing Indwelling Catheter: Other Urinary Catheter Date of Insertion: 06/10/24 Urinary Catheter Time of Insertion: 21:38 Date Urinary Catheter Removed: 06/15/24 Time Urinary Catheter Discontinued: 05:50 Data 06/15/24 03:56 06/15/24 03:56 Micro: Microbiology 06/12/24 14:30 Gram Stain - Final Leg - Left Anaerobic Culture - Preliminary Wound Culture - Preliminary Gram Negative Rods 06/11/24 17:29 Gram Stain - Final Leg - #2 Wound Culture - Final Gram Negative Rods 06/11/24 17:29 Gram Stain - Final Leg - #1 Wound Culture - Preliminary Gram Negative Rods A&P Assessment and plan (1) Venous stasis ulcers of both lower extremities: Plan Status post sharp excisional debridement of venous stasis ulcers bilateral lower extremities Twice daily wet-to-dry dressing changes while in the hospital Once daily dressing changes upon discharge Follow-up in my office 2 weeks after discharge Referral to wound care center Medical management per hospitalist PDMP PDMP Reviewed: Not Reviewed Attestations 2 Medical Necessity Statement*: Per primary Coding Level of Care Code Acute Code for [facility] Fwd Diagnoses Venous stasis ulcers of both lower extremities I83.019; I83.029; L97.919; L97.921
[2024-06-14 10:47] LABS: Glucose Point of Care 148 mg/dL (70-110)
[2024-06-14] MEDS: nystatin powder 15 gm Btl 1 APPLIC TOPICAL ×2 (11:41→16:34)
--- NOTE | 2024-06-14 14:45 | PM.PN ---
Subjective Subjective: Patient was seen this morning, he is alert oriented x 3, following all commands denies any fevers, no chills, no coughing, no abdominal pain, Vitals/I&O/Wt Last Vital Signs Temp 97.8 F 06/14/24 11:51 Pulse 83 06/14/24 11:51 Resp 15 06/14/24 11:51 BP 122/82 06/14/24 11:51 Pulse Ox 94 06/14/24 11:51 O2 Del Method Room Air 06/14/24 11:51 O2 Flow Rate 2 06/13/24 16:45 06/13/24 06/14/24 06/14/24 22:59 06:59 14:59 Intake Total 940 / 1090 390 / 1480 865 / 865 Output Total 652 / 1302 300 / 1602 450 / 450 Balance 288 / -212 90 / -122 415 / 415 Weight last 48 hrs Weight 104.5 kg Weight 107 kg Physical Exam Const: COMMON NORMALS: no acute distress and patient oriented x3 Resp: COMMON NORMALS: normal respiratory effort, No retractions, No use of accessory muscles and clear to auscultation bilaterally AUSCULTATION: clear to auscultation bilaterally Cardio: COMMON NORMALS: regular rate, regular rhythm, S1 normal heart sound present and S2 normal heart sound present RATE: regular rate RHYTHM: regular rhythm HEART SOUNDS: S1 normal heart sound present and S2 normal heart sound present GI: COMMON NORMALS: Normal to inspection, nondistended, normoactive bowel sounds present and non-tender Extremity: COMMON NORMALS: no pedal edema NARRATIVE EXTREMITY EXAM: Bilateral lower extremities, wrapped Neuro: COMMON NORMALS: patient oriented x3 Psych: COMMON NORMALS: mental status grossly normal Urinary Catheter Management: Marsh: Cath Placed During This Visit: yes Reason for Continuing Indwelling Catheter: Accurate Measurement of Urinary Output in Critically Ill Patients Urinary Catheter Date of Insertion: 06/10/24 Urinary Catheter Time of Insertion: 21:38 Data 06/14/24 04:18 06/14/24 04:18 Micro: Microbiology 06/11/24 17:29 Gram Stain - Final Leg - #2 Wound Culture - Final Gram Negative Rods 06/11/24 17:29 Gram Stain - Final Leg - #1 Wound Culture - Preliminary Gram Negative Rods 06/12/24 14:30 Gram Stain - Final Leg - Left Anaerobic Culture - Preliminary Wound Culture - Preliminary Gram Negative Rods 06/10/24 21:35 Urine Culture - Final Urine,Clean Catch A&P Assessment and plan (1) Gout: Qualifiers: Gout site: toe Gout etiology: unspecified cause Chronicity: chronic Laterality: right Presence of tophus: without tophus Qualified Code(s): M1A.9XX0 - Chronic gout, unspecified, without tophus (tophi) (2) Open wound of both lower extremities: (3) Bilateral leg ulcer: Qualifiers: Non-pressure ulcer stage: unspecified non-pressure ulcer stage Qualified Code(s): L97.919 - Non-pressure chronic ulcer of unspecified part of right lower leg with unspecified severity; L97.929 - Non-pressure chronic ulcer of unspecified part of left lower leg with unspecified severity (4) Lower extremity edema: (5) Anasarca: (6) Acute exacerbation of CHF (congestive heart failure): Qualifiers: Heart failure type: unspecified Qualified Code(s): I50.9 - Heart failure, unspecified (7) Hypertension: Qualifiers: Hypertension type: primary hypertension Qualified Code(s): I10 - Essential (primary) hypertension (8) Type 2 diabetes mellitus: Qualifiers: Diabetes mellitus complication detail: with peripheral angiopathy without gangrene Diabetes mellitus complication status: with circulatory complication Diabetes mellitus fci insulin use: without fci use Qualified Code(s): E11.51 - Type 2 diabetes mellitus with diabetic peripheral angiopathy without gangrene (9) BMI 37.0-37.9, adult: (10) History of hernia repair: (11) Acute kidney injury: (12) Acute lactic acidosis: (13) Bilateral cellulitis of lower leg: (14) Influenza A: (15) Seropositive rheumatoid arthritis of multiple sites: (16) Shock: (17) Cardiogenic shock: (18) Septic shock: (19) Acute encephalopathy: (20) Cellulitis: (21) Sepsis: Plan Acute encephalopathy, resolved -Multifactorial from sepsis, -Cellulitis -Influenza A -Head CT no acute findings -Neurochecks -Aspiration precautions Shock, resolved -Multifactorial -Cardiogenic shock -Septic shock -Could also be from diuresis -Avoid fluid therapy due to risk of fluid overload -Maintain MAP greater than 65 - moved to ICU Acute systolic CHF exacerbation CONCLUSIONS Limited echo Moderately increased left ventricular cavity size. Severely decreased left ventricular systolic function. Left ventricular ejection fraction is estimated at 15 %. Moderate biatrial enlarment There is no pericardial effusion. Anasarca Morbid obese Noncompliant -13L Diuresis on hold as creatinine is up to 1.6 Remove Marsh catheter today History of third-degree AV block status post pacemaker placement Bilateral lower extremity venous stasis ulcer/purulent cellulitis History of diabetes A1c 6.5 Arterial ultrasound done in April had no acute findings 05/02 bilateral lower extremity debridement amputation of left second toe evaluated vascular surgery no intervention kept on daptomycin, Zosyn concern for MRSA, fungal tissue culture with scant growth penicillium species, likely contamination, discharged on inpatient rehab on IV antibiotics Zosyn and daptomycin with end date of 05/19/2024 -Wound culture in the past showed Pseudomonas, Bacteroides fragilis Enterococcus, Staph aureus - patient on linezolid and Zosyn -As per the patient his left second toe was amputated at [facility] recently, continue to wound care -Will use Santyl dressing, apply bacitracin, -Patient's status post Sharp excisional debridement of venous stasis ulcers left leg for a total surface area greater than 60 cm left leg -Patient is status post Sharp excisional debridement of venous stasis ulcers right leg, down to muscle and fascia, for a total surface area greater than 125 sq cm -General Surgery on consult -Follow wound cultures, so far showing gram-negative rods -MRSA nares positive -Blood cultures so far negative -Cardiac diet Breakdown of left second toe amputation site, monitor High lactic acid: Likely from sepsis, resolved Sepsis, sepsis features met given acute encephalopathy, shock, elevated lactic acid elevated inflammatory markers, resolving Hypomagnesemia: IV mag given Chronic kidney disease: Ending up to 1.6 Abnormal D-dimer: venous Doppler negative for DVT Influenza A: Tamiflu Goals of care discussed with the patient, full code DVT prophylaxis: Heparin Plan for today continue wound care, continue IV antibiotics follow cultures, hold Lasix for today monitor creatinine, PT OT, working on placement to inpatient rehab PDMP PDMP Reviewed: Not Reviewed Attestations Medical Necessity Statement*: Patient requires hospitalization for bilateral extremity cellulitis requiring IV antibiotics, wound care, Diagnoses Chronic gout involving toe of right foot without tophus, unspecified cause M1A.[id number] Gout site: toe Gout etiology: unspecified cause Chronicity: chronic Laterality: right Presence of tophus: without tophus Open wound of both lower extremities S81.801A; S81.802A Ulcers of both lower extremities, unspecified ulcer stage L97.919; L97.929 Non-pressure ulcer stage: unspecified non-pressure ulcer stage Lower extremity edema R60.0 Anasarca R60.1 Acute exacerbation of CHF (congestive heart failure) I50.9 Heart failure type: unspecified Primary hypertension I10 Hypertension type: primary hypertension Type 2 diabetes mellitus with diabetic peripheral angiopathy without gangrene, without long-term current use of insulin E11.51 Diabetes mellitus complication detail: with peripheral angiopathy without gangrene Diabetes mellitus complication status: with circulatory complication Diabetes mellitus long term care administrator insulin use: without long term care administrator use BMI 37.0-37.9, adult Z68.37 History of hernia repair Z98.890; Z87.19 Acute kidney injury N17.9 Acute lactic acidosis E87.21 Bilateral cellulitis of lower leg L03.116; L03.115 Influenza A J10.1 Seropositive rheumatoid arthritis of multiple sites M05.79 Shock R57.9 Cardiogenic shock R57.0 Septic shock A41.9; R65.21 Acute encephalopathy G93.40 Cellulitis L03.90 Sepsis A41.9
--- NOTE | 2024-06-14 15:34 | P.PN_ITS ---
<Statement entered by Tom Martinez MD - 06/14/24 20:26> Patient was evaluated and cared for in conjunction with an advanced practice practitioner. I personally examined the patient and reviewed the chart and all pertinent data including imaging, telemetry, and laboratory results. I discussed the patient in detail with the advanced practice practitioner. Please see their note for complete H&P testing result and agreed upon plan of care for the patient. Denies any complaint feeling much better denies any PND orthopnea GENERAL: Patient is alert, awake and oriented x3. HEART: Regular S1 and S2. No murmur, rub or gallop. LUNGS: Clear to auscultate bilaterally. CENTRAL NERVOUS SYSTEM: Grossly nonfocal. EXTREMITIES: Lower extremities with 1+ edema bilaterally. Both legs wrapped Assessment and plan Nonischemic cardiomyopathy Chronic venous insufficiency with ulcer most likely venous from the right leg Severely depressed ejection fraction Status post permanent pacemaker would like to assess whether it is ICD or not Continue guideline medical therapy for heart failure. Since patient is euvolemic diuretics is on hold Subjective 2 Subjective: Patient overall looks stable from a cardiac standpoint. Denies any chest pain or shortness of breath. Vitals/I&O/Wt Last Vital Signs Temp 97.8 F 06/14/24 11:51 Pulse 83 06/14/24 11:51 Resp 15 06/14/24 11:51 BP 122/82 06/14/24 11:51 Pulse Ox 94 06/14/24 11:51 O2 Del Method Room Air 06/14/24 11:51 O2 Flow Rate 2 06/13/24 16:45 06/14/24 06/14/24 06/14/24 06:59 14:59 22:59 Intake Total 390 / 1480 865 / 865 Output Total 300 / 1602 450 / 450 Balance 90 / -122 415 / 415 Weight last 48 hrs Weight 230 lb 6.129 oz Weight 235 lb 14.314 oz Physical Exam 2 Narrative: General: No apparent distress, healthy appearing, well nourished HENMT: normoceophalic Muskuloskeletal: Full ROM Lymphatic: no lymphedema noted Respiratory: Normal respiratory effort, clear to auscultation bilaterally throughout all lung brasher, no use of accessory muscles Cardio: No JVD, regular rate, regular rhythm, S1 S2 normal, no murmurs, peripheral pulses 2+ throughout GI: Normal to inspection, nondistended Extremities: Full ROM, normal, normal capillary refill, no cyanosis Neuro: Alert and oriented x4, no focal motor deficits Psych: Affect normal, denies suicidal ideation, mental status grossly normal Skin: Bilateral lower extremities are wrapped up due to wounds, he has a toe amputation present that looks necrotic at the base Urinary Catheter Management: Marsh: Cath Placed During This Visit: yes Reason for Continuing Indwelling Catheter: Accurate Measurement of Urinary Output in Critically Ill Patients Urinary Catheter Date of Insertion: 06/10/24 Urinary Catheter Time of Insertion: 21:38 Data 06/14/24 04:18 06/14/24 04:18 Micro: Microbiology 06/11/24 17:29 Gram Stain - Final Leg - #2 Wound Culture - Final Gram Negative Rods 06/11/24 17:29 Gram Stain - Final Leg - #1 Wound Culture - Preliminary Gram Negative Rods 06/12/24 14:30 Gram Stain - Final Leg - Left Anaerobic Culture - Preliminary Wound Culture - Preliminary Gram Negative Rods 06/10/24 21:35 Urine Culture - Final Urine,Clean Catch A&P Assessment and plan (1) Hypertensive urgency: (2) Hypertension: Qualifiers: Hypertension type: primary hypertension Qualified Code(s): I10 - Essential (primary) hypertension (3) Congestive heart failure: Qualifiers: Heart failure chronicity: acute on chronic Heart failure type: systolic Qualified Code(s): I50.23 - Acute on chronic systolic (congestive) heart failure (4) Acute exacerbation of CHF (congestive heart failure): Qualifiers: Heart failure type: unspecified Qualified Code(s): I50.9 - Heart failure, unspecified Plan Patient has come in with CHF exacerbation and infected lower extremity wounds. He has been diuresed well and overall looks euvolemic. Can continue to hold lasix for now as creatinine is still slightly elevated. Continue carvedilol. Would recommend adding back Entresto when creatinine returns to baseline. Will titrate diuretics to patient's response. Patient may need lifevest in the future. Will need to discuss with him. He is not sure whether he got a pacemaker only or defibrillator as well. We will check on this. We will go ahead and order venous reflux study, as patient may have venous ulcers. He has palpable DP bilaterally 2+. PDMP PDMP Reviewed: Not Reviewed Attestations 2 Medical Necessity Statement*: Deferred to primary care team Coding Level of Care Code Acute Code for Chg Fwd Diagnoses Hypertensive urgency I16.0 Primary hypertension I10 Hypertension type: primary hypertension Acute on chronic systolic congestive heart failure I50.23 Heart failure chronicity: acute on chronic Heart failure type: systolic Acute exacerbation of CHF (congestive heart failure) I50.9 Heart failure type: unspecified
[2024-06-14 17:08] LABS: Glucose Point of Care 115 mg/dL (70-110)
[2024-06-14] MEDS: bacitracin ointment 28 gm 1 APPLIC TOPICAL (20:32)
[2024-06-14 21:00] LABS: Glucose Point of Care 170 mg/dL (70-110)
[2024-06-15] VITALS (8 sets, daily range): BP systolic 140–185; BP diastolic 84–93; PULSE 78–88; RESP 16–20; TEMP 36.6–36.8; O2SAT 92–97; BMI 33.7
[2024-06-15 04:43] LABS: Basophils # 0.1 10^3/uL (0.0-0.1); Basophils % 0.8 %; Eosinophils # 0.3 10^3/uL (0.0-0.8); Hematocrit 35.7 % (37-53); Lymphocytes # 1.4 10^3/uL (0.8-4.8); Lymphocytes % 17.3 %; Mean Corpuscular HGB Conc 30.3 g/dL (30-55); Mean Corpuscular Hemoglobin 23.7 pg (27-33); Mean Corpuscular Volume 78.5 fl (82-101); Mean Platelet Volume 9.5 fL (7.4-10.4); Monocytes # 0.8 10^3/uL (0.2-0.9); Monocytes % 9.1 %; Neutrophils # 5.65 10^3/uL (1.8-7.7); Neutrophils % 68.2 %; Nucleated Red Blood Cells % 0 %; Platelet Count 307 10^3/cmm (157-399); Red Blood Count 4.55 10^6/uL (3.85-5.65); Red Cell Distribution Width 27.7 % (12.1-15.1); White Blood Count 8.28 10^3/uL (3.29-11.43)
[2024-06-15 04:54] LABS: Alanine Aminotransferase 11 U/L (0-41); Albumin Level 3.1 g/dL (3.5-5.2); Alkaline Phosphatase 145 U/L (40-130); Anion Gap 14.5 (5-19); Aspartate Amino Transferase 24 U/L (0-40); Blood Urea Nitrogen 26 mg/dL (8-23); C Reactive Protein 24.9 mg/L (0.0-4.9); Calcium 8.1 mg/dL (8.5-10.5); Carbon Dioxide 31 mmol/L (22-29); Chloride 96 mmol/L (98-107); Creatinine Clr Calc Pharmacy 55.3963; Glomerular Filtration Rate 43.7 mL/min (90-130); Glucose 104 mg/dL (65-115); Magnesium 1.6 mg/dL (1.7-2.3); Osmolality Calculated 291 mOsm/kg (285-295); Potassium 3.5 mmol/L (3.5-5.1); Sodium 138 mmol/L (136-145); Total Bilirubin 1.4 mg/dL (0.15-1.2); Total Protein 6.1 g/dL (6.6-8.7)
[2024-06-15 05:08] LABS: NT Pro B Type Natriuretic Pept 6604 pg/mL (0-125); Procalcitonin 0.54 ng/mL (0-0.5)
[2024-06-15] MEDS: piperacillin-tazobactam 3.375 GM in sodium chloride 0.9% (plus) 50 ML IV ×2 (05:34→12:50)
[2024-06-15] MEDS: sucralfate 1 gm/10 mL Oral Liq UDC PO ×4 (05:34→23:07)
[2024-06-15 06:31] LABS: Glucose Point of Care 116 mg/dL (70-110)
[2024-06-15] MEDS: oseltamivir phosphate 30 mg Capsule PO (09:52)
[2024-06-15] MEDS: pantoprazole DR 40 mg Tablet PO ×2 (09:52→17:05)
[2024-06-15] MEDS: carvedilol 6.25 mg Tablet PO ×2 (09:52→17:05)
[2024-06-15] MEDS: heparin 5,000 unit/mL INJ 1 mL 5000 UNIT SUBCUT ×2 (09:53→19:41)
[2024-06-15] MEDS: linezolid premix 600 MG/300 ML PREMIX 300 MG IV ×2 (09:58→20:48)
[2024-06-15] MEDS: nystatin powder 15 gm Btl 1 APPLIC TOPICAL ×2 (10:00→17:06)
--- NOTE | 2024-06-15 10:12 | P.PN_ITS ---
Subjective 2 Subjective: Pain controlled. No complaints Vitals/I&O/Wt Last Vital Signs Temp 98.2 F 06/15/24 07:53 Pulse 82 06/15/24 09:19 Resp 16 06/15/24 09:19 BP 185/88 06/15/24 07:53 Pulse Ox 95 06/15/24 09:19 O2 Del Method Room Air 06/15/24 09:19 O2 Flow Rate 2 06/13/24 16:45 06/14/24 06/15/24 06/15/24 22:59 06:59 14:59 Intake Total 350 / 1215 50 / 1265 480 / 480 Output Total 450 / 900 450 / 1350 Balance -100 / 315 -400 / -85 480 / 480 Weight last 48 hrs Weight 229 lb Weight 230 lb 6.129 oz Physical Exam 2 Narrative: General: No acute distress, awake alert and oriented x 3 Extremities: Wounds on his bilateral legs without erythema or exudate Urinary Catheter Management: Marsh: Cath Placed During This Visit: yes, but has since been removed by the nurse Reason for Continuing Indwelling Catheter: Other Urinary Catheter Date of Insertion: 06/10/24 Urinary Catheter Time of Insertion: 21:38 Date Urinary Catheter Removed: 06/15/24 Time Urinary Catheter Discontinued: 05:50 Data 06/15/24 03:56 06/15/24 03:56 Micro: Microbiology 06/12/24 14:30 Gram Stain - Final Leg - Left Anaerobic Culture - Preliminary Wound Culture - Preliminary Gram Negative Rods 06/11/24 17:29 Gram Stain - Final Leg - #2 Wound Culture - Final Gram Negative Rods 06/11/24 17:29 Gram Stain - Final Leg - #1 Wound Culture - Preliminary Gram Negative Rods A&P Assessment and plan (1) Venous stasis ulcers of both lower extremities: Plan Status post sharp excisional debridement of venous stasis ulcers bilateral lower extremities Twice daily wet-to-dry dressing changes while in the hospital Once daily dressing changes upon discharge Follow-up in my office 2 weeks after discharge Referral to wound care center Surgically stable for discharge Medical management per hospitalist PDMP PDMP Reviewed: Not Reviewed Attestations 2 Medical Necessity Statement*: Per primary Coding Level of Care Code Acute Code for Chg Fwd Diagnoses Venous stasis ulcers of both lower extremities I83.019; I83.029; L97.919; L97.92
[2024-06-15] MEDS: morphine 4 mg/mL SDV 1 mL 2 MG IVP ×2 (11:12→19:42)
[2024-06-15 11:51] LABS: Glucose Point of Care 153 mg/dL (70-110)
--- NOTE | 2024-06-15 12:15 | P.PN_ITS ---
Subjective 2 Subjective: Patient resting comfortably in bed this afternoon. He has no complaints at this time. Vitals/I&O/Wt Last Vital Signs Temp 98.2 F 06/15/24 07:53 Pulse 82 06/15/24 09:19 Resp 16 06/15/24 11:12 BP 185/88 06/15/24 07:53 Pulse Ox 95 06/15/24 11:12 O2 Del Method Room Air 06/15/24 09:19 O2 Flow Rate 2 06/13/24 16:45 06/14/24 06/15/24 06/15/24 22:59 06:59 14:59 Intake Total 350 / 1215 50 / 1265 830 / 830 Output Total 450 / 900 450 / 1350 Balance -100 / 315 -400 / -85 830 / 830 Weight last 48 hrs Weight 229 lb Weight 230 lb 6.129 oz Physical Exam 2 Narrative: On exam of his left second toe region/surgical wound. Area is unchanged his previous evaluation. Large eschar of the area with suture still in place. All appears to be healing well Urinary Catheter Management: Marsh: Cath Placed During This Visit: yes, but has since been removed by the nurse Reason for Continuing Indwelling Catheter: Other Urinary Catheter Date of Insertion: 06/10/24 Urinary Catheter Time of Insertion: 21:38 Date Urinary Catheter Removed: 06/15/24 Time Urinary Catheter Discontinued: 05:50 Data 06/15/24 03:56 06/15/24 03:56 Micro: Microbiology 06/12/24 14:30 Gram Stain - Final Leg - Left Anaerobic Culture - Preliminary Wound Culture - Preliminary Gram Negative Rods 06/11/24 17:29 Gram Stain - Final Leg - #2 Wound Culture - Final Gram Negative Rods 06/11/24 17:29 Gram Stain - Final Leg - #1 Wound Culture - Preliminary Gram Negative Rods A&P Assessment and plan (1) Delayed surgical wound healing of toe amputation stump: Amputated toe appears to be healing well at the wound site. No further surgical intervention necessary at this time Plan Orthopedic plan at this time is to sign off as there is nothing further that I need to do at this time. Patient needs to continue on with his medications per general surgery for his venous stasis ulcers of his lower extremity. PDMP PDMP Reviewed: Not Reviewed Attestations 2 Medical Necessity Statement*: Patient is here for venous stasis ulcers and MRSA. No further orthopedic involvement necessary at this time Coding Level of Care Code 75767 Diagnoses Delayed surgical wound healing of toe amputation stump T87.89
[2024-06-15] MEDS: insulin lispro 100 unit/1 mL SUBCUT (12:50)
[2024-06-15 16:13] LABS: Glucose Point of Care 102 mg/dL (70-110)
--- NOTE | 2024-06-15 16:48 | PM.PN ---
Subjective Subjective: Patient was seen this morning, he is sitting at the side of the bed, he is adamant about going home, we discussed the morbidity of mortality associated with going home, given his bilateral lower extremity ulcers, recommend continued IV antibiotics for now until his culture results come back,, given that he was debrided down to muscle and fascia and he was on IV antibiotics, he is likely going to need IV antibiotics, waiting on the culture results, nonetheless he also has daily dressing changes, bilateral nursing staff tells me that he needs help with ambulating, he needs help with using the bathroom, so I do not know how he is going to change the dressings for himself at home, he tells me that he will manage, I recommend given that these are recurrent wounds, and he was recently at [facility] and has had them debrided when he was at [facility] in [place] I [facility] having adequate coverage with IV antibiotics as I am worried that he is going to lose both his lower extremities to these wounds, discussed morbidity and mortality, he voiced understanding, all questions answered Vitals/I&O/Wt Last Vital Signs Temp 98.0 F 06/15/24 16:00 Pulse 78 06/15/24 16:00 Resp 19 H 06/15/24 16:00 BP 162/92 06/15/24 16:00 Pulse Ox 97 06/15/24 16:00 O2 Del Method Room Air 06/15/24 12:51 O2 Flow Rate 2 06/13/24 16:45 06/15/24 06/15/24 06/15/24 06:59 14:59 22:59 Intake Total 50 / 1265 1190 / 1190 Output Total 450 / 1350 Balance -400 / -85 1190 / 1190 Weight last 48 hrs Weight 103.873 kg Weight 104.5 kg Physical Exam Const: COMMON NORMALS: no acute distress and patient oriented x3 Resp: COMMON NORMALS: normal respiratory effort, No retractions, No use of accessory muscles and clear to auscultation bilaterally AUSCULTATION: clear to auscultation bilaterally Cardio: COMMON NORMALS: regular rate, regular rhythm, S1 normal heart sound present and S2 normal heart sound present RATE: regular rate RHYTHM: regular rhythm HEART SOUNDS: S1 normal heart sound present and S2 normal heart sound present GI: COMMON NORMALS: Normal to inspection, nondistended, normoactive bowel sounds present and non-tender Extremity: COMMON NORMALS: no pedal edema NARRATIVE EXTREMITY EXAM: Bilateral lower extremities 1+ pitting edema bilateral extremities wrapped Neuro: COMMON NORMALS: patient oriented x3 Psych: COMMON NORMALS: mental status grossly normal Urinary Catheter Management: Marsh: Cath Placed During This Visit: yes, but has since been removed by the nurse Reason for Continuing Indwelling Catheter: Other Urinary Catheter Date of Insertion: 06/10/24 Urinary Catheter Time of Insertion: 21:38 Date Urinary Catheter Removed: 06/15/24 Time Urinary Catheter Discontinued: 05:50 Data 06/15/24 03:56 06/15/24 03:56 Micro: Microbiology 06/12/24 14:30 Gram Stain - Final Leg - Left Anaerobic Culture - Preliminary Wound Culture - Final Achromobacter xylosoxidans sub 06/11/24 17:29 Gram Stain - Final Leg - #1 Wound Culture - Final Achromobacter xylosoxidans sub 06/11/24 17:29 Gram Stain - Final Leg - #2 Wound Culture - Final Gram Negative Rods A&P Assessment and plan (1) Gout: Qualifiers: Gout site: toe Gout etiology: unspecified cause Chronicity: chronic Laterality: right Presence of tophus: without tophus Qualified Code(s): M1A.9XX0 - Chronic gout, unspecified, without tophus (tophi) (2) Open wound of both lower extremities: (3) Bilateral leg ulcer: Qualifiers: Non-pressure ulcer stage: unspecified non-pressure ulcer stage Qualified Code(s): L97.919 - Non-pressure chronic ulcer of unspecified part of right lower leg with unspecified severity; L97.929 - Non-pressure chronic ulcer of unspecified part of left lower leg with unspecified severity (4) Lower extremity edema: (5) Anasarca: (6) Acute exacerbation of CHF (congestive heart failure): Qualifiers: Heart failure type: unspecified Qualified Code(s): I50.9 - Heart failure, unspecified (7) Hypertension: Qualifiers: Hypertension type: primary hypertension Qualified Code(s): I10 - Essential (primary) hypertension (8) Type 2 diabetes mellitus: Qualifiers: Diabetes mellitus complication detail: with peripheral angiopathy without gangrene Diabetes mellitus complication status: with circulatory complication 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: without equipment operator intermodal yard use Qualified Code(s): E11.51 - Type 2 diabetes mellitus with diabetic peripheral angiopathy without gangrene (9) BMI 37.0-37.9, adult: (10) History of hernia repair: (11) Acute kidney injury: (12) Acute lactic acidosis: (13) Bilateral cellulitis of lower leg: (14) Influenza A: (15) Seropositive rheumatoid arthritis of multiple sites: (16) Shock: (17) Cardiogenic shock: (18) Septic shock: (19) Acute encephalopathy: (20) Cellulitis: (21) Sepsis: Plan Acute encephalopathy, resolved -Multifactorial from sepsis, -Cellulitis -Influenza A -Head CT no acute findings -Neurochecks -Aspiration precautions Shock, resolved -Multifactorial -Cardiogenic shock -Septic shock -Could also be from diuresis -Avoid fluid therapy due to risk of fluid overload -Maintain MAP greater than 65 - moved to ICU Acute systolic CHF exacerbation CONCLUSIONS Limited echo Moderately increased left ventricular cavity size. Severely decreased left ventricular systolic function. Left ventricular ejection fraction is estimated at 15 %. Moderate biatrial enlarment There is no pericardial effusion. Anasarca Morbid obese Noncompliant -13L -Has 1+ pitting edema 1 dose IV Lasix today Remove Marsh catheter today History of third-degree AV block status post pacemaker placement Bilateral lower extremity venous stasis ulcer/purulent cellulitis History of diabetes A1c 6.5 Arterial ultrasound done in April had no acute findings 05/02 bilateral lower extremity debridement amputation of left second toe evaluated vascular surgery no intervention kept on daptomycin, Zosyn concern for MRSA, fungal tissue culture with scant growth penicillium species, likely contamination, discharged on inpatient rehab on IV antibiotics Zosyn and daptomycin with end date of 05/19/2024 -Wound culture in the past showed Pseudomonas, Bacteroides fragilis, Enterococcus, Staph aureus - patient on linezolid and Zosyn -As per the patient his left second toe was amputated at [facility] recently, continue to wound care -Will use Santyl dressing, apply bacitracin, -Patient's status post Sharp excisional debridement of venous stasis ulcers left leg for a total surface area greater than 60 cm left leg -Patient is status post Sharp excisional debridement of venous stasis ulcers right leg, down to muscle and fascia, for a total surface area greater than 125 sq cm -Given that patient was debrided down to the level of the muscle I would recommend IV antibiotics given his history as above -Wound cultures Achromobacter multidrug-resistant, with his renal function I be very hesitant about using Bactrim -Would recommend IV meropenem here in the hospital and at least 2 weeks of IV ertapenem 1 g IV every 24 hours stop date June 30, 2024, (2 weeks from date of initiation of carbapenem which will be July 02) -Will continue Zyvox as MRSA nares positive and his past history of Staph aureus in his wound I would likely continue Zyvox, can discharge on p.o. Zyvox, in addition stop date June 27, 2024, 2 weeks from last debridement -PICC line will be placed Monday morning -General Surgery on consult -Follow wound cultures, so far showing gram-negative rods -MRSA nares positive -Blood cultures so far negative -Cardiac diet Breakdown of left second toe amputation site, monitor High lactic acid: Likely from sepsis, resolved Sepsis, sepsis features met given acute encephalopathy, shock, elevated lactic acid elevated inflammatory markers, resolving Hypomagnesemia: IV mag given Chronic kidney disease: Ending up to 1.6 Abnormal D-dimer: venous Doppler negative for DVT Influenza A: Tamiflu Goals of care discussed with the patient, full code DVT prophylaxis: Heparin Plan for today switch to IV meropenem as patient is growing Achromobacte,r, continue Zyvox PDMP PDMP Reviewed: Not Reviewed Attestations Medical Necessity Statement*: Patient requires hospitalization for bilateral extremity wounds, wound showing multidrug-resistant infection requiring IV antibiotics, daily dressing changes Diagnoses Chronic gout involving toe of right foot without tophus, unspecified cause M1A.9XX0 Gout site: toe Gout etiology: unspecified cause Chronicity: chronic Laterality: right Presence of tophus: without tophus Open wound of both lower extremities S81.801A; S81.802A Ulcers of both lower extremities, unspecified ulcer stage L97.919; L97.929 Non-pressure ulcer stage: unspecified non-pressure ulcer stage Lower extremity edema R60.0 Anasarca R60.1 Acute exacerbation of CHF (congestive heart failure) I50.9 Heart failure type: unspecified Primary hypertension I10 Hypertension type: primary hypertension Type 2 diabetes mellitus with diabetic peripheral angiopathy without gangrene, without long-term current use of insulin E11.51 Diabetes mellitus complication detail: with peripheral angiopathy without gangrene Diabetes mellitus complication status: with circulatory complication 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
[2024-06-15] MEDS: FUROsemide 10 mg/mL SDV 4mL 40 MG IVP (17:04)
[2024-06-15] MEDS: meropenem 1,000 mg SDV 1000 MG IVP (17:04)
[2024-06-15] MEDS: potassium chloride ER 20 mEq Tablet PO (17:04)
[2024-06-15 20:21] LABS: Glucose Point of Care 102 mg/dL (70-110)
[2024-06-16] VITALS (9 sets, daily range): BP systolic 115–134; BP diastolic 66–90; PULSE 71–86; RESP 16–19; TEMP 36.4–36.9; O2SAT 92–100
[2024-06-16] MEDS: meropenem 1,000 mg SDV 1000 MG IVP ×3 (00:05→17:37)
[2024-06-16] MEDS: sucralfate 1 gm/10 mL Oral Liq UDC PO ×4 (05:04→22:56)
[2024-06-16 05:55] LABS: Basophils # 0.1 10^3/uL (0.0-0.1); Basophils % 0.9 %; Eosinophils # 0.3 10^3/uL (0.0-0.8); Eosinophils % 3.8 %; Hematocrit 37.8 % (37-53); Lymphocytes # 1.1 10^3/uL (0.8-4.8); Lymphocytes % 12.9 %; Mean Corpuscular HGB Conc 29.4 g/dL (30-55); Mean Corpuscular Hemoglobin 23.4 pg (27-33); Mean Corpuscular Volume 79.6 fl (82-101); Mean Platelet Volume 9.7 fL (7.4-10.4); Monocytes # 0.7 10^3/uL (0.2-0.9); Monocytes % 8.2 %; Neutrophils # 6.03 10^3/uL (1.8-7.7); Neutrophils % 73.8 %; Nucleated Red Blood Cells % 0 %; Platelet Count 312 10^3/cmm (157-399); Red Blood Count 4.75 10^6/uL (3.85-5.65); Red Cell Distribution Width 27.4 % (12.1-15.1); White Blood Count 8.16 10^3/uL (3.29-11.43)
[2024-06-16 06:15] LABS: Glucose Point of Care 205 mg/dL (70-110)
[2024-06-16 06:25] LABS: Alanine Aminotransferase 12 U/L (0-41); Albumin Level 3.2 g/dL (3.5-5.2); Alkaline Phosphatase 149 U/L (40-130); Anion Gap 13.6 (5-19); Aspartate Amino Transferase 23 U/L (0-40); Blood Urea Nitrogen 26 mg/dL (8-23); Calcium 8.3 mg/dL (8.5-10.5); Carbon Dioxide 34 mmol/L (22-29); Chloride 95 mmol/L (98-107); Creatinine Clr Calc Pharmacy 55.3963; Glomerular Filtration Rate 43.7 mL/min (90-130); Glucose 100 mg/dL (65-115); Magnesium 1.6 mg/dL (1.7-2.3); Osmolality Calculated 293 mOsm/kg (285-295); Potassium 3.6 mmol/L (3.5-5.1); Sodium 139 mmol/L (136-145); Total Bilirubin 1.4 mg/dL (0.15-1.2); Total Protein 6.2 g/dL (6.6-8.7)
--- NOTE | 2024-06-16 09:27 | PM.PN ---
Subjective Subjective: Patient was seen this morning, is alert oriented x 3, following all commands, we discussed his wound cultures, growing Achromobacter species, given his history of debridement in the past multidrug-resistant infections in this past, his creatinine, his debridements down to the level of the muscle, I would recommend at least at minimum 2 weeks of IV antibiotics starting from yesterday as patient was on Zosyn and the Achromobacter is resistant to Zosyn, ertapenem 1 g IV every 24 hours starting from yesterday, the Zyvox can be switched to p.o., total of 2 weeks since debridement, he understands this, we discussed that he needs daily wound care and this only can be done at a long-term care facility I would strongly recommend for him to go to her long-term rehab facility such as [facility], after discussing risk benefits, he voiced understanding all questions answered agreed to proceed we discussed that if we do not treat this appropriately he will lose his legs he understands this, he is agreeable Vitals/I&O/Wt Last Vital Signs Temp 97.8 F 06/16/24 08:00 Pulse 83 06/16/24 08:00 Resp 17 06/16/24 08:00 BP 126/81 06/16/24 08:00 Pulse Ox 96 06/16/24 08:00 O2 Del Method Room Air 06/16/24 08:00 O2 Flow Rate 3 06/16/24 04:00 06/15/24 06/16/24 06/16/24 22:59 06:59 14:59 Intake Total 1070 / 2260 240 / 240 Output Total 800 / 800 Balance 270 / 1460 240 / 240 Weight last 48 hrs Weight 103.873 kg Weight 103.873 kg Physical Exam Const: COMMON NORMALS: no acute distress and patient oriented x3 Resp: COMMON NORMALS: normal respiratory effort, No retractions, No use of accessory muscles and clear to auscultation bilaterally AUSCULTATION: clear to auscultation bilaterally Cardio: COMMON NORMALS: regular rate, regular rhythm, S1 normal heart sound present and S2 normal heart sound present RATE: regular rate RHYTHM: regular rhythm HEART SOUNDS: S1 normal heart sound present and S2 normal heart sound present GI: COMMON NORMALS: Normal to inspection, nondistended, normoactive bowel sounds present and non-tender Extremity: NARRATIVE EXTREMITY EXAM: 1+ pitting edema Neuro: COMMON NORMALS: patient oriented x3 Psych: COMMON NORMALS: mental status grossly normal Urinary Catheter Management: Marsh: Cath Placed During This Visit: yes, but has since been removed by the nurse Reason for Continuing Indwelling Catheter: Other Urinary Catheter Date of Insertion: 06/10/24 Urinary Catheter Time of Insertion: 21:38 Date Urinary Catheter Removed: 06/15/24 Time Urinary Catheter Discontinued: 05:50 Data 06/16/24 05:19 06/16/24 05:19 Micro: Microbiology 06/10/24 20:08 Blood Culture - Final Blood NO GROWTH AFTER 5 DAYS 06/10/24 20:06 Blood Culture - Final Blood NO GROWTH AFTER 5 DAYS 06/12/24 14:30 Gram Stain - Final Leg - Left Anaerobic Culture - Preliminary Wound Culture - Final Achromobacter xylosoxidans sub 06/11/24 17:29 Gram Stain - Final Leg - #1 Wound Culture - Final Achromobacter xylosoxidans sub A&P Assessment and plan (1) Gout: Qualifiers: Gout site: toe Gout etiology: unspecified cause Chronicity: chronic Laterality: right Presence of tophus: without tophus Qualified Code(s): M1A.9XX0 - Chronic gout, unspecified, without tophus (tophi) (2) Open wound of both lower extremities: (3) Bilateral leg ulcer: Qualifiers: Non-pressure ulcer stage: unspecified non-pressure ulcer stage Qualified Code(s): L97.919 - Non-pressure chronic ulcer of unspecified part of right lower leg with unspecified severity; L97.929 - Non-pressure chronic ulcer of unspecified part of left lower leg with unspecified severity (4) Lower extremity edema: (5) Anasarca: (6) Acute exacerbation of CHF (congestive heart failure): Qualifiers: Heart failure type: unspecified Qualified Code(s): I50.9 - Heart failure, unspecified (7) Hypertension: Qualifiers: Hypertension type: primary hypertension Qualified Code(s): I10 - Essential (primary) hypertension (8) Type 2 diabetes mellitus: Qualifiers: Diabetes mellitus complication detail: with peripheral angiopathy without gangrene Diabetes mellitus complication status: with circulatory complication Diabetes mellitus termite control service representative insulin use: without termite control service representative use Qualified Code(s): E11.51 - Type 2 diabetes mellitus with diabetic peripheral angiopathy without gangrene (9) BMI 37.0-37.9, adult: (10) History of hernia repair: (11) Acute kidney injury: (12) Acute lactic acidosis: (13) Bilateral cellulitis of lower leg: (14) Influenza A: (15) Seropositive rheumatoid arthritis of multiple sites: (16) Shock: (17) Cardiogenic shock: (18) Septic shock: (19) Acute encephalopathy: (20) Cellulitis: (21) Sepsis: Plan Acute encephalopathy, resolved -Multifactorial from sepsis, -Cellulitis -Influenza A -Head CT no acute findings -Neurochecks -Aspiration precautions Shock, resolved -Multifactorial -Cardiogenic shock -Septic shock -Could also be from diuresis -Avoid fluid therapy due to risk of fluid overload -Maintain MAP greater than 65 - moved to ICU Acute systolic CHF exacerbation CONCLUSIONS Limited echo Moderately increased left ventricular cavity size. Severely decreased left ventricular systolic function. Left ventricular ejection fraction is estimated at 15 %. Moderate biatrial enlarment There is no pericardial effusion. Anasarca Morbid obese Noncompliant -13L -Has 1+ pitting edema 1 dose IV Lasix today Remove Marsh catheter today History of third-degree AV block status post pacemaker placement Bilateral lower extremity venous stasis ulcer/purulent cellulitis History of diabetes A1c 6.5 Arterial ultrasound done in April had no acute findings 05/02 bilateral lower extremity debridement amputation of left second toe evaluated vascular surgery no intervention kept on daptomycin, Zosyn concern for MRSA, fungal tissue culture with scant growth penicillium species, likely contamination, discharged on inpatient rehab on IV antibiotics Zosyn and daptomycin with end date of 05/19/2024 -Wound culture in the past showed Pseudomonas, Bacteroides fragilis, Enterococcus, Staph aureus - patient on linezolid and Zosyn -As per the patient his left second toe was amputated at [facility] recently, continue to wound care -Will use Santyl dressing, apply bacitracin, -Patient's status post Sharp excisional debridement of venous stasis ulcers left leg for a total surface area greater than 60 cm left leg -Patient is status post Sharp excisional debridement of venous stasis ulcers right leg, down to muscle and fascia, for a total surface area greater than 125 sq cm -Given that patient was debrided down to the level of the muscle I would recommend IV antibiotics given his history as above -Wound cultures Achromobacter multidrug-resistant, with his renal function I be very hesitant about using Bactrim -Would recommend IV meropenem here in the hospital and at least 2 weeks of IV ertapenem 1 g IV every 24 hours stop date June 30, 2024, (2 weeks from date of initiation of carbapenem which will be July 02) -Will continue Zyvox as MRSA nares positive and his past history of Staph aureus in his wound I would likely continue Zyvox, can discharge on p.o. Zyvox, in addition stop date June 27, 2024, 2 weeks from last debridement -PICC line will be placed Monday morning -General Surgery on consult -Follow wound cultures, so far showing gram-negative rods -MRSA nares positive -Blood cultures so far negative -Cardiac diet Breakdown of left second toe amputation site, monitor High lactic acid: Likely from sepsis, resolved Sepsis, sepsis features met given acute encephalopathy, shock, elevated lactic acid elevated inflammatory markers, resolving Hypomagnesemia: IV mag given Chronic kidney disease: Ending up to 1.6 Abnormal D-dimer: venous Doppler negative for DVT Influenza A: Tamiflu, completed Goals of care discussed with the patient, full code DVT prophylaxis: Heparin Plan for today -Continue p.o. Lasix, monitor creatinine 1.6 - 2 weeks of IV ertapenem 1 g IV every 24 hours stop date June 30, 2024, (2 weeks from date of initiation of carbapenem which will be June 16) -Will continue Zyvox as MRSA nares positive and his past history of Staph aureus in his wound I would likely continue Zyvox, can discharge on p.o. Zyvox, in addition stop date June 27, 2024, 2 weeks from last debridement -Daily wound care -Cardiology has been consulted will await their recommendations likely-follow with cardiology as outpatient PDMP PDMP Reviewed: Not Reviewed Attestations Medical Necessity Statement*: Patient requires hospitalization for bilateral remedy wounds, requiring wound care, IV antibiotics, CHF requiring diuresis Diagnoses Chronic gout involving toe of right foot without tophus, unspecified cause M1A.9XX0 Gout site: toe Gout etiology: unspecified cause Chronicity: chronic Laterality: right Presence of tophus: without tophus Open wound of both lower extremities S81.801A; S81.802A Ulcers of both lower extremities, unspecified ulcer stage L97.919; L97.929 Non-pressure ulcer stage: unspecified non-pressure ulcer stage Lower extremity edema R60.0 Anasarca R60.1 Acute exacerbation of CHF (congestive heart failure) I50.9 Heart failure type: unspecified Primary hypertension I10 Hypertension type: primary hypertension Type 2 diabetes mellitus with diabetic peripheral angiopathy without gangrene, without long-term current use of insulin E11.51 Diabetes mellitus complication detail: with peripheral angiopathy without gangrene Diabetes mellitus complication status: with circulatory complication Diabetes mellitus termite control service representative insulin use: without termite control service representative use BMI 37.0-37.9, adult Z68.37 History of hernia repair Z98.890; Z87.19 Acute kidney injury N17.9 Acute lactic acidosis E87.21 Bilateral cellulitis of lower leg L03.116; L03.115 Influenza A J10.1 Seropositive rheumatoid arthritis of multiple sites M05.79 Shock R57.9 Cardiogenic shock R57.0 Septic shock A41.9; R65.21 Acute encephalopathy G93.40 Cellulitis L03.90 Sepsis A41.9
[2024-06-16] MEDS: carvedilol 6.25 mg Tablet PO ×2 (10:40→17:37)
[2024-06-16] MEDS: heparin 5,000 unit/mL INJ 1 mL 5000 UNIT SUBCUT ×2 (10:40→19:23)
[2024-06-16] MEDS: pantoprazole DR 40 mg Tablet PO ×2 (10:41→17:37)
[2024-06-16] MEDS: aspirin 81 mg EC Tablet PO (10:41)
[2024-06-16] MEDS: linezolid premix 600 MG/300 ML PREMIX 300 MG IV ×2 (10:41→19:57)
[2024-06-16] MEDS: potassium chloride ER 20 mEq Tablet PO (10:41)
[2024-06-16] MEDS: FUROsemide 40 mg Tablet PO (10:41)
[2024-06-16] MEDS: insulin lispro 100 unit/1 mL SUBCUT (10:42)
[2024-06-16] MEDS: nystatin powder 15 gm Btl 1 APPLIC TOPICAL ×2 (10:42→17:37)
[2024-06-16] MEDS: morphine 4 mg/mL SDV 1 mL 2 MG IVP (11:01)
[2024-06-16 11:57] LABS: Glucose Point of Care 121 mg/dL (70-110)
[2024-06-16 16:59] LABS: Glucose Point of Care 109 mg/dL (70-110)
[2024-06-16 20:56] LABS: Glucose Point of Care 127 mg/dL (70-110)
[2024-06-17] VITALS (8 sets, daily range): BP systolic 122–167; BP diastolic 59–85; PULSE 73–88; RESP 14–18; TEMP 36.5–36.9; O2SAT 97–100
[2024-06-17] MEDS: meropenem 1,000 mg SDV 1000 MG IVP ×3 (00:19→17:34)
[2024-06-17] MEDS: sucralfate 1 gm/10 mL Oral Liq UDC PO ×3 (04:31→17:34)
[2024-06-17] MEDS: acetaminophen 500 mg Tablet PO (04:32)
[2024-06-17 05:36] LABS: Basophils # 0.1 10^3/uL (0.0-0.1); Basophils % 0.8 %; Eosinophils # 0.3 10^3/uL (0.0-0.8); Eosinophils % 4.1 %; Hematocrit 36.2 % (37-53); Lymphocytes # 1.3 10^3/uL (0.8-4.8); Lymphocytes % 17.8 %; Mean Corpuscular HGB Conc 29.8 g/dL (30-55); Mean Corpuscular Hemoglobin 23.9 pg (27-33); Mean Corpuscular Volume 80.3 fl (82-101); Mean Platelet Volume 9.6 fL (7.4-10.4); Monocytes # 0.6 10^3/uL (0.2-0.9); Monocytes % 8.5 %; Neutrophils # 4.89 10^3/uL (1.8-7.7); Neutrophils % 68.4 %; Nucleated Red Blood Cells % 0 %; Platelet Count 245 10^3/cmm (157-399); Red Blood Count 4.51 10^6/uL (3.85-5.65); Red Cell Distribution Width 26.9 % (12.1-15.1); White Blood Count 7.15 10^3/uL (3.29-11.43)
[2024-06-17 05:57] LABS: Alanine Aminotransferase 11 U/L (0-41); Albumin Level 3.1 g/dL (3.5-5.2); Alkaline Phosphatase 147 U/L (40-130); Anion Gap 13.3 (5-19); Aspartate Amino Transferase 21 U/L (0-40); Blood Urea Nitrogen 34 mg/dL (8-23); Calcium 8.6 mg/dL (8.5-10.5); Carbon Dioxide 31 mmol/L (22-29); Chloride 96 mmol/L (98-107); Creatinine Clr Calc Pharmacy 62.9132; Glucose 105 mg/dL (65-115); Magnesium 1.7 mg/dL (1.7-2.3); Osmolality Calculated 290 mOsm/kg (285-295); Phosphorus 1.7 mg/dL (2.5-4.5); Potassium 4.3 mmol/L (3.5-5.1); Sodium 136 mmol/L (136-145); Total Bilirubin 1.2 mg/dL (0.15-1.2); Total Protein 6.1 g/dL (6.6-8.7)
[2024-06-17 06:33] LABS: Glucose Point of Care 153 mg/dL (70-110)
[2024-06-17] MEDS: heparin 5,000 unit/mL INJ 1 mL 5000 UNIT SUBCUT ×2 (08:42→20:36)
[2024-06-17] MEDS: insulin lispro 100 unit/1 mL SUBCUT (08:42)
[2024-06-17] MEDS: carvedilol 6.25 mg Tablet PO ×2 (08:42→17:35)
[2024-06-17] MEDS: aspirin 81 mg EC Tablet PO (08:42)
[2024-06-17] MEDS: pantoprazole DR 40 mg Tablet PO ×2 (08:42→17:35)
[2024-06-17] MEDS: potassium chloride ER 20 mEq Tablet PO (08:43)
[2024-06-17] MEDS: FUROsemide 40 mg Tablet PO (08:43)
[2024-06-17] MEDS: linezolid premix 600 MG/300 ML PREMIX 300 MG IV ×2 (08:43→20:36)
[2024-06-17] MEDS: nystatin powder 15 gm Btl 1 APPLIC TOPICAL ×2 (08:43→17:36)
[2024-06-17] MEDS: sennosides-docusate Tablet 1 TAB PO (08:43)
[2024-06-17 11:52] LABS: Glucose Point of Care 133 mg/dL (70-110)
--- NOTE | 2024-06-17 13:03 | P.PN_ITS ---
Vitals/I&O/Wt Last Vital Signs Temp 98.4 F 06/17/24 08:00 Pulse 88 06/17/24 08:00 Resp 18 06/17/24 08:00 BP 132/77 06/17/24 08:00 Pulse Ox 99 06/17/24 08:00 O2 Del Method Nasal Cannula 06/17/24 08:00 O2 Flow Rate 3 06/16/24 04:00 06/16/24 06/17/24 06/17/24 22:59 06:59 14:59 Intake Total 660 / 1560 1020 / 1020 Output Total 975 / 1275 400 / 1675 100 / 100 Balance -315 / 285 -400 / -115 920 / 920 Weight last 48 hrs Weight 102.557 kg Weight 103.873 kg Physical Exam 2 Const: COMMON NORMALS: no acute distress and patient oriented x3 O RIENTATION/CONSCIOUSNESS: Yes awake, Yes oriented to person, Yes oriented to place and Yes confused; not oriented to time HENMT: COMMON NORMALS: normocephalic HEAD & SCALP: normocephalic Eye: COMMON NORMALS: Equal, round and reactive pupils present PUPIL: Yes Equal, round and reactive pupils present Neck/C-Spine: COMMON NORMALS: no JVD Resp: COMMON NORMALS: normal respiratory effort, No retractions, No use of accessory muscles and clear to auscultation bilaterally AUSCULTATION: clear to auscultation bilaterally, crackles and wheezes Cardio: COMMON NORMALS: no JVD, regular rate, regular rhythm, S1 normal heart sound present and S2 normal heart sound present RATE: regular rate RHYTHM: regular rhythm HEART SOUNDS: S1 normal heart sound present and S2 normal heart sound present GI: COMMON NORMALS: Normal to inspection, nondistended, normoactive bowel sounds present and non-tender OTHER: EDEMA Extremity: COMMON NORMALS: capillary refill normal, no clubbing, cyanosis or edema, no calf tenderness and no pedal edema NARRATIVE EXTREMITY EXAM: 1+ pitting edema OTHER: bilateral lower extremity wounds wrapped Neuro: COMMON NORMALS: patient oriented x3 SENSORIUM/ORIENTATION: Yes oriented to person, Yes oriented to place and No oriented to time Psych: COMMON NORMALS: mental status grossly normal Skin: NARRATIVE SKIN EXAM: Bilateral extremities wrapped Urinary Catheter Management: Marsh: Cath Placed During This Visit: yes, but has since been removed by the nurse Reason for Continuing Indwelling Catheter: Other Urinary Catheter Date of Insertion: 06/10/24 Urinary Catheter Time of Insertion: 21:38 Date Urinary Catheter Removed: 06/15/24 Time Urinary Catheter Discontinued: 05:50 Data 06/17/24 04:52 06/17/24 04:52 Micro: Microbiology 06/12/24 14:30 Gram Stain - Final Leg - Left Anaerobic Culture - Preliminary Wound Culture - Final Achromobacter xylosoxidans sub A&P Assessment and plan (1) Gout: Qualifiers: Gout site: toe Gout etiology: unspecified cause Chronicity: chronic L aterality: right Presence of tophus: without tophus Qualified Code(s): M 1A.9XX0 - Chronic gout, unspecified, without tophus (tophi) (2) Open wound of both lower extremities: (3) Bilateral leg ulcer: Qualifiers: Non-pressure ulcer stage: unspecified non-pressure ulcer stage Q ualified Code(s): L97.919 - Non-pressure chronic ulcer of unspecified part of right lower leg with unspecified severity; L97.929 - Non-pressure chronic ulcer of unspecified part of left lower leg with unspecified severity (4) Lower extremity edema: (5) Anasarca: (6) Acute exacerbation of CHF (congestive heart failure): Qualifiers: Heart failure type: unspecified Qualified Code(s): I50.9 - Heart failure, unspecified (7) Hypertension: Qualifiers: Hypertension type: primary hypertension Qualified Code(s): I10 - Essential (primary) hypertension (8) Type 2 diabetes mellitus: Qualifiers: Diabetes mellitus complication detail: with peripheral angiopathy without gangrene Diabetes mellitus complication status: with circulatory complication Diabetes mellitus [facility] insulin use: without parts counterman use Q ualified Code(s): E11.51 - Type 2 diabetes mellitus with diabetic peripheral angiopathy without gangrene (9) BMI 37.0-37.9, adult: (10) History of hernia repair: (11) Acute kidney injury: (12) Acute lactic acidosis: (13) Bilateral cellulitis of lower leg: (14) Influenza A: (15) Seropositive rheumatoid arthritis of multiple sites: (16) Shock: (17) Cardiogenic shock: (18) Septic shock: (19) Acute encephalopathy: (20) Cellulitis: (21) Sepsis: Plan Acute encephalopathy, resolved -Multifactorial from sepsis, -Cellulitis -Influenza A -Head CT no acute findings -Neurochecks -Aspiration precautions Shock, resolved -Multifactorial -Cardiogenic shock -Septic shock -Could also be from diuresis -Avoid fluid therapy due to risk of fluid overload -Maintain MAP greater than 65 - moved to ICU Acute systolic CHF exacerbation CONCLUSIONS Limited echo Moderately increased left ventricular cavity size. Severely decreased left ventricular systolic function. Left ventricular ejection fraction is estimated at 15 %. Moderate biatrial enlarment There is no pericardial effusion. Anasarca Morbid obese Noncompliant -13L -Has 1+ pitting edema 1 dose IV Lasix today Remove Marsh catheter today History of third-degree AV block status post pacemaker placement Bilateral lower extremity venous stasis ulcer/purulent cellulitis History of diabetes A1c 6.5 Arterial ultrasound done in April had no acute findings 05/02 bilateral lower extremity debridement amputation of left second toe evaluated vascular surgery no intervention kept on daptomycin, Zosyn concern for MRSA, fungal tissue culture with scant growth penicillium species, likely contamination, discharged on inpatient rehab on IV antibiotics Zosyn and daptomycin with end date of 05/19/2024 -Wound culture in the past showed Pseudomonas, Bacteroides fragilis, Enterococcus, Staph aureus - patient on linezolid and Zosyn -As per the patient his left second toe was amputated at [facility] recently, continue to wound care -Will use Santyl dressing, apply bacitracin, -Patient's status post Sharp excisional debridement of venous stasis ulcers left leg for a total surface area greater than 60 cm left leg -Patient is status post Sharp excisional debridement of venous stasis ulcers right leg, down to muscle and fascia, for a total surface area greater than 125 sq cm -Given that patient was debrided down to the level of the muscle I would recommend IV antibiotics given his history as above -Wound cultures Achromobacter multidrug-resistant, with his renal function I be very hesitant about using Bactrim -Would recommend IV meropenem here in the hospital and at least 2 weeks of IV ertapenem 1 g IV every 24 hours stop date June 30, 2024, (2 weeks from date of initiation of carbapenem which will be July 02) -Will continue Zyvox as MRSA nares positive and his past history of Staph aureus in his wound I would likely continue Zyvox, can discharge on p.o. Zyvox, in addition stop date June 27, 2024, 2 weeks from last debridement -PICC line will be placed Monday morning -General Surgery on consult -Follow wound cultures, so far showing gram-negative rods -MRSA nares positive -Blood cultures so far negative -Cardiac diet Breakdown of left second toe amputation site, monitor High lactic acid: Likely from sepsis, resolved Sepsis, sepsis features met given acute encephalopathy, shock, elevated lactic acid elevated inflammatory markers, resolving Hypomagnesemia: IV mag given Chronic kidney disease: Ending up to 1.6 Abnormal D-dimer: venous Doppler negative for DVT Influenza A: Tamiflu, completed Goals of care discussed with the patient, full code DVT prophylaxis: Heparin Plan for the day: Continue current current IV antibiotics. Plan for midline placement. Plan for discharge as an outpatient with IV ertapenem 1 g daily for overall 14 days with last dose on 06/30. For now continue with IV linezolid. Will plan to discharge on oral linezolid till 06/30 given MRSA swab positive with history of MRSA in the wound in the past. Patient euvolemic. Continue with current dose of Coreg, Lasix. Goal blood pressure less than 140/90 mmHg. If blood pressure permits can restart home dose of Entresto. Appreciate cardiology recommendations. Insert sliding scale before meals and at bedtime. Blood sugars well-controlled. Discharge plan: Plan to discharge to [facility] inpatient rehab for further wound care and IV antibiotics. Case management working on the same. Patient agreeable. PDMP PDMP Reviewed: Not Reviewed Coding Level of Care Code Acute Code for [facility] Fwd Diagnoses Chronic gout involving toe of right foot without tophus, unspecified cause M1A.9XX0 Gout site: toe Gout etiology: unspecified cause Chronicity: chronic Laterality: right Presence of tophus: without tophus Open wound of both lower extremities S81.801A; S81.802A Ulcers of both lower extremities, unspecified ulcer stage L97.919; L97.929 Non-pressure ulcer stage: unspecified non-pressure ulcer stage Lower extremity edema R60.0 Anasarca R60.1 Acute exacerbation of CHF (congestive heart failure) I50.9 Heart failure type: unspecified Primary hypertension I10 Hypertension type: primary hypertension Type 2 diabetes mellitus with diabetic peripheral angiopathy without gangrene, without long-term current use of insulin E11.51 Diabetes mellitus complication detail: with peripheral angiopathy without gangrene Diabetes mellitus complication status: with circulatory complication Diabetes mellitus parts counterman insulin use: without parts counterman use BMI 37.0-37.9, adult Z68.37 History of hernia repair Z98.890; Z87.19 Acute kidney injury N17.9 Acute lactic acidosis E87.21 Bilateral cellulitis of lower leg L03.116; L03.115 Influenza A J10.1 Seropositive rheumatoid arthritis of multiple sites M05.79 Shock R57.9 Cardiogenic shock R57.0 Septic shock A41.9; R65.21 Acute encephalopathy G93.40 Cellulitis L03.90 Sepsis A41.9
--- NOTE | 2024-06-17 13:16 | P.PN_ITS ---
<Statement entered by Tom Martinez MD - 06/17/24 20:34> Patient was evaluated and cared for in conjunction with an advanced practice practitioner. I personally examined the patient and reviewed the chart and all pertinent data including imaging, telemetry, and laboratory results. I discussed the patient in detail with the advanced practice practitioner. Please see their note for complete H&P testing result and agreed upon plan of care for the patient. Denies any complaint feeling much better awaiting placement GENERAL: Patient is alert, awake and oriented x3. HEART: Regular S1 and S2. No murmur, rub or gallop. LUNGS: Clear to auscultate bilaterally. CENTRAL NERVOUS SYSTEM: Grossly nonfocal. EXTREMITIES: Lower extremities wrapped Assessment and plan History of cardiomyopathy nonischemic Severely depressed left ventricular ejection fraction Well compensated systolic heart failure Continue guideline medical therapy for heart failure LifeVest Wound care Subjective 2 Subjective: Patient is doing well overall. Creatinine is improved. He appears euvolemic. No complaints at this time. Vitals/I&O/Wt Last Vital Signs Temp 98.4 F 06/17/24 08:00 Pulse 88 06/17/24 08:00 Resp 18 06/17/24 08:00 BP 132/77 06/17/24 08:00 Pulse Ox 99 06/17/24 08:00 O2 Del Method Nasal Cannula 06/17/24 08:00 O2 Flow Rate 3 06/16/24 04:00 06/16/24 06/17/24 06/17/24 22:59 06:59 14:59 Intake Total 660 / 1560 1020 / 1020 Output Total 975 / 1275 400 / 1675 100 / 100 Balance -315 / 285 -400 / -115 920 / 920 Weight last 48 hrs Weight 226 lb 1.6 oz Weight 229 lb Physical Exam 2 Narrative: General: No apparent distress, healthy appearing, well nourished HENMT: normoceophalic Muskuloskeletal: Full ROM Lymphatic: no lymphedema noted Respiratory: Normal respiratory effort, clear to auscultation bilaterally throughout all lung brasher, no use of accessory muscles Cardio: No JVD, regular rate, regular rhythm, S1 S2 normal, no murmurs, peripheral pulses 2+ throughout GI: Normal to inspection, nondistended Extremities: Full ROM, normal, normal capillary refill, no cyanosis Neuro: Alert and oriented x4, no focal motor deficits Psych: Affect normal, denies suicidal ideation, mental status grossly normal Skin: Bilateral lower extremities are wrapped up due to wounds, he has a toe amputation present that looks necrotic at the base Urinary Catheter Management: Marsh: Cath Placed During This Visit: yes, but has since been removed by the nurse Reason for Continuing Indwelling Catheter: Other Urinary Catheter Date of Insertion: 06/10/24 Urinary Catheter Time of Insertion: 21:38 Date Urinary Catheter Removed: 06/15/24 Time Urinary Catheter Discontinued: 05:50 Data 06/17/24 04:52 06/17/24 04:52 Micro: Microbiology 06/12/24 14:30 Gram Stain - Final Leg - Left Anaerobic Culture - Preliminary Wound Culture - Final Achromobacter xylosoxidans sub A&P Assessment and plan (1) Hypertensive urgency: (2) Hypertension: Qualifiers: Hypertension type: primary hypertension Qualified Code(s): I10 - Essential (primary) hypertension (3) Congestive heart failure: Qualifiers: Heart failure chronicity: acute on chronic Heart failure type: systolic Qualified Code(s): I50.23 - Acute on chronic systolic (congestive) heart failure (4) Acute exacerbation of CHF (congestive heart failure): Qualifiers: Heart failure type: unspecified Qualified Code(s): I50.9 - Heart failure, unspecified Plan Patient has come in with CHF exacerbation and infected lower extremity wounds. He has been diuresed well and overall looks euvolemic. Recommend continue current care with carvedilol, lasix, potassium. At this time patient has low EF and needs a LifeVest. I did discuss this with the patient. EF is around 15%. He agreed to proceed with a LifeVest. His blood pressure has stabilized. Creatinine is improving. Once he has recovered from his acute kidney injury will introduce Entresto. From a cardiology standpoint no changes PDMP PDMP Reviewed: Not Reviewed Attestations 2 Medical Necessity Statement*: Deferred to primary Coding Level of Care Code Acute Code for g Fwd Diagnoses Hypertensive urgency I16.0 Primary hypertension I10 Hypertension type: primary hypertension Acute on chronic systolic congestive heart failure I50.23 Heart failure chronicity: acute on chronic Heart failure type: systolic Acute exacerbation of CHF (congestive heart failure) I50.9 Heart failure type: unspecified
--- NOTE | 2024-06-17 14:08 | PICC.NOTE ---
Midline placed to left basilic vein. Referred to vascular access nurse for PICC placement due to need for IV antibiotics x 2 weeks. Risks and benefits discussed and informed consent obtained from pt. Left arm assessed with left basilic vein measuring 6.4 mm, straight, and apparent best choice for placement. Using sterile technique and MST, left basilic vein accessed x 1 stick. Mid-arm circumference measured 10 cm from left AC 27 cm. Trimmed cath 10 cm with 0 cm external length noted. Line secured with stat-lock. Insertion site covered with Biopatch and TSM. Report given to bedside nurse, ELIZABETH Malhotra.
--- NOTE | 2024-06-17 15:56 | PM.DCS ---
Discharge Providers Date of Admission: 06/10/24 19:27 Date of Discharge: June 17, 2024 Attending Provider at Admission: Tom Whitt MD Attending Provider at Discharge: Oniel Melgoza MD Primary Care Provider: Itz Pierson MD Diagnoses at Discharge Discharge Diagnosis (1) Hypertensive urgency: Status: Acute (2) Hypertension: Status: Acute Qualifiers: Hypertension type: primary hypertension Qualified Code(s): I10 - Essential (primary) hypertension (3) Congestive heart failure: Status: Acute Qualifiers: Heart failure chronicity: acute on chronic Heart failure type: systolic Qualified Code(s): I50.23 - Acute on chronic systolic (congestive) heart failure (4) Acute exacerbation of CHF (congestive heart failure): Status: Acute Qualifiers: Heart failure type: unspecified Qualified Code(s): I50.9 - Heart failure, unspecified Reason for Visit Reason for Visit: dizziness, falls Brief History: History as per HPI: Ely Hare is a 63 year old male with history of reduced ejection fraction EF 30%, third-degree heart block status post pacemaker placement 2 weeks ago at [facility], patient was transferred from our facility, patient was getting cardiac care at [facility], lives alone there is a caregiver who helps him out on daily basis, presented today with chief complaint of generalized weakness, fatigue, recurrent falls. Patient is stating that pacemaker was placed 2 weeks ago, during hospitalization he had left second toe amputation done as well, he was discharged with linezolid and levofloxacin. He is not endorsing taking any diuretics. He has not noticed any chest pain but endorsing shortness of breath apnea PND significant weakness. He has not been able to use his walker secondary to worsening of swelling of his feet. He has not been changing the dressing of the wound. Patient is stating that he is diabetic and takes metformin. Workup in the ER revealed chronic kidney disease, chronic anemia, lactic acidemia, patient is afebrile, has anasarca, not requiring oxygen, Hypomagnesemia: BNP 13,000 Procalcitonin is not remarkable Previous MRSA nares + 04/26/2024 06/10/2024 influenza A positive Patient is stating that he felt multiple times secondary to losing balance and inability to walk, patient is not sure if he had syncopal event but stating that his falls are related to losing balance, no recent chest pain, fever, diarrhea Patient is not a candidate to receive IV fluid bolus secondary to anasarca He had received antibiotics, Patient is not a reliable historian Review of records revealed that patient had left heart cath 03/06 last year it was nonischemic cardiomyopathy, patient was asked to stop lisinopril and start Entresto along Farxiga and Lasix right ventricular systolic pressure is elevated 40 to 50 mmHg mild aortic root dilation 4.2 cm ascending aortic aneurysm 4.4 cm Patient was asked to follow-up with cardiology outpatient by [facility] Patient was asked to get wound care referral to see wound clinic in [place]. Medications included Coreg, metformin, Farxiga, Lasix 20 mg, Entresto Results of cardiac cath 03/06 at [facility] Left main coronary vessel: Normal Left anterior descending artery luminal irregularity first diagonal normal, second diagonal normal Left circumflex: Obtuse marginal 1 and 2 normal Right coronary artery dominant artery: Normal posterior descending artery normal Hospital Course Hospital Course Patient Was admitted to the hospital further evaluation and management of congestive heart failure with anasarca, significant bilateral lower limb cellulitis with ulcer. He was started on IV diuresis. Surgery was consulted and he underwent bilateral lower limb debridement. During hospitalization he was continued on diuresis to which he responded well. Given the concerns for extensive infection, worsening of lower limb movement he underwent OR sharp excisional debridement on 06/12. His cultures grew resistant Achromobacter. Given extensive depth of the infected ulcer decision was made to continue the IV antibiotic treatment for overall 2 weeks on the day of debridement. His antibiotics were tailored as per culture sensitivities. He responded well to the treatment and has been back to his baseline mentation, oxygen supplementation for last 48 hours. He is working well with physical therapy. Safe discharge plan were discussed in detail with the patient and possible transition to acute rehab was tried but patient was declined as he has been improving well with physical therapy. He has been discharged with medically stable condition after midline placement with IV ertapenem 1 g daily to 14 days, oral linezolid for 14 days with advised to follow-up as an outpatient daily for IV antibiotics and wound care. Physical Exam Narrative: General: No apparent distress, healthy appearing, well nourished HENMT: normoceophalic Muskuloskeletal: Full ROM Lymphatic: no lymphedema noted Respiratory: Normal respiratory effort, clear to auscultation bilaterally throughout all lung brasher, no use of accessory muscles Cardio: No JVD, regular rate, regular rhythm, S1 S2 normal, no murmurs, peripheral pulses 2+ throughout GI: Normal to inspection, nondistended Extremities: Full ROM, normal, normal capillary refill, no cyanosis Neuro: Alert and oriented x4, no focal motor deficits Psych: Affect normal, denies suicidal ideation, mental status grossly normal Skin: Bilateral lower extremities are wrapped up due to wounds, he has a toe amputation present that looks necrotic at the base Urinary Catheter Management: Marsh: Cath Placed During This Visit: yes, but has since been removed by the nurse Reason for Continuing Indwelling Catheter: Other Urinary Catheter Date of Insertion: 06/10/24 Urinary Catheter Time of Insertion: 21:38 Date Urinary Catheter Removed: 06/15/24 Time Urinary Catheter Discontinued: 05:50 Discharge Data Studies Completed and Pending Completed Studies During Hospitalization Category Date Time Status CT head wo con* [id number] Urgent Cat Scan 06/10/24 18:07 Completed XR chest 1V portable [id number] Routine Exams 06/12/24 07:00 Completed XR chest 1V portable [id number] Stat Exams 06/10/24 18:08 Completed XR chest 2V* [id number] Stat Exams 06/10/24 19:41 Completed XR foot LT 2V [id number] Routine Exams 06/13/24 15:19 [place] [id number] Routine Ultrasound 06/10/24 20:25 Completed CV. echo limited [id number] Routine Ultrasound 06/11/24 11:23 Completed Pending at discharge Category Date Time Status Anaerobic Culture Routine Lab 06/12/24 14:30 Results Complete Blood Count w/Auto AM LABS Lab 06/18/24 04:00 Ordered Comprehensive Metabolic Panel AM LABS Lab 06/18/24 04:00 Ordered MRSA PCR OZH (swab) Routine Lab 06/11/24 18:12 Ordered Magnesium AM LABS Lab 06/18/24 04:00 Ordered Phosphorus AM LABS Lab 06/18/24 04:00 Ordered Wound Culture and Gram Stain Routine Lab 06/12/24 14:30 Results Radiology Impressions Head CT 06/10/24 18:07 IMPRESSION: 1. No acute intracranial abnormality. 2. Small-vessel ischemic disease. Venous Duplex 06/10/24 20:25 IMPRESSION: 1. No evidence of deep vein thrombosis in the bilateral lower extremities. 2. Pitting edema of the bilateral lower extremities with large open ulcerations noted by the lumber piler on both calfs. Chest X-Ray 06/12/24 07:00 Impression: 1. Elevation of the right diaphragm with probable atelectasis over lateral aspect. 2. Cardiomegaly, atherosclerosis and cardiac pacemaker unchanged. Foot X-Ray 06/13/24 15:19 Impression: 1. Absence of left second toe with calcification and residual soft tissue at the level of the absent second toe proximal phalanx. 2. 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 Microbiology 06/12/24 14:30 Leg - Left Gram Stain - Final 06/12/24 14:30 Leg - Left Anaerobic Culture - Preliminary 06/12/24 14:30 Leg - Left Wound Culture - Final Achromobacter xylosoxidans sub 06/10/24 20:08 Blood Blood Culture - Final NO GROWTH AFTER 5 DAYS 06/10/24 20:06 Blood Blood Culture - Final NO GROWTH AFTER 5 DAYS 06/11/24 17:29 Leg - #1 Gram Stain - Final 06/11/24 17:29 Leg - #1 Wound Culture - Final Achromobacter xylosoxidans sub 06/11/24 17:29 Leg - #2 Gram Stain - Final 06/11/24 17:29 Leg - #2 Wound Culture - Final Gram Negative Rods 06/10/24 21:35 Urine,Clean Catch Urine Culture - Final Echocardiogram: CONCLUSIONS Limited echo Moderately increased left ventricular cavity size. Severely decreased left ventricular systolic function. Left ventricular ejection fraction is estimated at 15 %. Moderate biatrial enlarment There is no pericardial effusion. Tom Martinez MD (Electronically Signed) Final Date: 11 June 2024 19:44 Laboratory Results WBC 7.15 10^3/uL (3.29-11.43) 06/17/24 04:52 RBC 4.51 10^6/uL (3.85-5.65) 06/17/24 04:52 Hgb 10.80 g/dL (11.27-16.99) L 06/17/24 04:52 Hct 36.2 % (37-53) L 06/17/24 04:52 MCV 80.3 fl (82-101) L 06/17/24 04:52 MCH 23.9 pg (27-33) L 06/17/24 04:52 MCHC 29.8 g/dL (30-55) L 06/17/24 04:52 RDW 26.9 % (12.1-15.1) H 06/17/24 04:52 Plt Count 245 10^3/cmm (157-399) 06/17/24 04:52 MPV 9.6 fL (7.4-10.4) 06/17/24 04:52 Neut % (Auto) 68.4 % 06/17/24 04:52 Lymph % (Auto) 17.8 % 06/17/24 04:52 [place] % (Auto) 8.5 % 06/17/24 04:52 Eos % (Auto) 4.1 % 06/17/24 04:52 Baso % (Auto) 0.8 % 06/17/24 04:52 Neut # (Auto) 4.89 10^3/uL (1.8-7.7) 06/17/24 04:52 Lymph # (Auto) 1.3 10^3/uL (0.8-4.8) 06/17/24 04:52 [place] # (Auto) 0.6 10^3/uL (0.2-0.9) 06/17/24 04:52 Eos # (Auto) 0.3 10^3/uL (0.0-0.8) 06/17/24 04:52 Baso # (Auto) 0.1 10^3/uL (0.0-0.1) 06/17/24 04:52 Nucleated RBC % (auto) 0 % 06/17/24 04:52 Nucleated RBCs # 0.0 /100WBC 06/17/24 04:52 ESR 1 mm/hr (0-10) 06/11/24 11:00 PT 15.50 SECONDS (12.1-14.9) H 06/14/24 04:18 INR 1.15 (0.8-1.2) 06/14/24 04:18 APTT 33.4 SECONDS (23.9-36.7) 06/10/24 18:20 D-Dimer 3.73 ug/mLFEU (0-0.59) H 06/10/24 18:20 Specimen Type Arterial 06/14/24 05:13 Sample Site Radial, left 06/14/24 05:13 ABG pH 7.47 (7.35-7.45) H 06/14/24 05:13 ABG pCO2 45.0 mmHg (35-45) 06/14/24 05:13 ABG pO2 71.0 mmHg (80.0-100.0) L 06/14/24 05:13 ABG PO2/FiO2 Ratio 338 06/14/24 05:13 ABG HCO3 33.0 mmol/L (22-26) H 06/14/24 05:13 ABG Base Excess 8.4 mmol/L (-2.0-2.0) H 06/14/24 05:13 Shawn Test Pos 06/14/24 05:13 Hematocrit 36.3 % (42-52) L 06/14/24 05:13 O2 Delivery Device Room air 06/14/24 05:13 FiO2 21.0 % 06/14/24 05:13 Process Improvement Specialist ID Busja 06/14/24 05:13 Sodium 136 mmol/L (136-145) 06/17/24 04:52 Potassium 4.3 mmol/L (3.5-5.1) 06/17/24 04:52 Chloride 96 mmol/L (98-107) L 06/17/24 04:52 Carbon Dioxide 31 mmol/L (22-29) H 06/17/24 04:52 Anion Gap 13.3 (5-19) 06/17/24 04:52 BUN 34 mg/dL (8-23) H 06/17/24 04:52 Creatinine 1.4 mg/dL (0.7-1.2) H 06/17/24 04:52 GFR Calculation 51.0 mL/min (90-130) L 06/17/24 04:52 Glucose 105 mg/dL (65-115) 06/17/24 04:52 POC Glucose 133 mg/dL (70-110) H 06/17/24 11:38 Estimat Average Glucose 140 06/10/24 18:20 Hemoglobin A1c 6.5 % (4.0-6.0) H 06/10/24 18:20 Calculated Osmolality 290 mOsm/kg (285-295) 06/17/24 04:52 Lactic Acid 3.7 mmol/L (0.5-2.2) H 06/10/24 18:20 Lactic Acid (Sepsis) 2.7 mmol/L (0.5-2.2) H 06/10/24 21:30 Lactate 2.6 mmol/L (0.5-2.2) H 06/14/24 04:18 Calcium 8.6 mg/dL (8.5-10.5) 06/17/24 04:52 Phosphorus 1.7 mg/dL (2.5-4.5) L 06/17/24 04:52 Magnesium 1.7 mg/dL (1.7-2.3) 06/17/24 04:52 Total Bilirubin 1.2 mg/dL (0.15-1.2) 06/17/24 04:52 AST 21 U/L (0-40) 06/17/24 04:52 ALT 11 U/L (0-41) 06/17/24 04:52 Alkaline Phosphatase 147 U/L (40-130) H 06/17/24 04:52 Troponin T Baseline 63 ng/L (0-15) H 06/11/24 14:13 Troponin T 120 Minute 63.02 ng/L (0-15) H 06/11/24 17:35 Delta Troponin T 0.02 ABS# (0-10) 06/11/24 17:35 Troponin T Hi Sens 6Hr 75.71 ng/L (0-15) H 06/12/24 07:21 Troponin T Hi Sens 6Hr Delta 12.71 ng/L (0-12) H* 06/12/24 07:21 C-Reactive Protein 24.9 mg/L (0.0-4.9) H 06/15/24 03:56 NT-Pro-B Natriuret Pep 6604 pg/mL (0-125) H 06/15/24 03:56 Total Protein 6.1 g/dL (6.6-8.7) L 06/17/24 04:52 Albumin 3.1 g/dL (3.5-5.2) L 06/17/24 04:52 Globulin 3.0 g/dL (1.3-4.6) 06/17/24 04:52 25-OH Vitamin D Total 15 ng/mL (30-100) L 06/10/24 18:20 Procalcitonin 0.54 ng/mL (0-0.5) H 06/15/24 03:56 Urine Color Yellow (Yellow) 06/10/24 21:35 Urine Appearance Clear (CLEAR) 06/10/24 21:35 Urine pH 6.0 (5-7) 06/10/24 21:35 Ur Specific [place]ipple 1.016 (1.005-1.030) 06/10/24 21:35 Urine Protein 1+ (Negative) A 06/10/24 21:35 Urine Glucose (UA) Negative (Normal) 06/10/24 21:35 Urine Ketones Negative (Negative) 06/10/24 21:35 Urine Blood Negative (Negative) 06/10/24 21:35 Urine Nitrate Negative (Negative) 06/10/24 21:35 Urine Bilirubin Negative (Negative) 06/10/24 21:35 Urine Urobilinogen 0.2 mg/dL (Negative) 06/10/24 21:35 Ur Leukocyte Esterase 1+ (Negative) A 06/10/24 21:35 Urine RBC 0-2 /hpf (0-2) 06/10/24 21:35 Urine WBC 0-5 /hpf (0-5) 06/10/24 21:35 Ur Squamous Epith Cells 0-5 /hpf (0-5) 06/10/24 21:35 Amorphous Sediment Not Reportable 06/10/24 21:35 Urine Bacteria None seen /hpf (NONE) 06/10/24 21:35 Hyaline Casts 0.81 /lpf 06/10/24 21:35 Urine Yeast Trace /hpf 06/10/24 21:35 Coronavirus (PCR) Negative (Negative) 06/10/24 18:20 Influenza A (PCR) Positive (Negative) 06/10/24 18:20 Influenza Type B (PCR) Negative (Negative) 06/10/24 18:20 RSV (PCR) Negative (Negative) 06/10/24 18:20 Vitals Last Vital Signs Temp 97.9 F 06/17/24 12:00 Pulse 79 06/17/24 14:33 Resp 18 06/17/24 14:33 BP 122/59 06/17/24 12:00 Pulse Ox 99 06/17/24 14:33 O2 Del Method Nasal Cannula 06/17/24 14:33 O2 Flow Rate 2.5 06/17/24 14:33 Discharge Plan Discharge Patient Disposition: Home Condition: Stable Prescriptions: New furosemide 40 mg Tablet 40 mg PO DAILY@0800 Qty: 30 0RF linezolid 600 mg tablet 600 mg PO BID 14 Days Qty: 28 0RF aspirin 81 mg Tablet,Delayed Release (Dr/Ec) 81 mg PO DAILY Qty: 30 0RF dapagliflozin propanediol [Farxiga] 10 mg tablet 10 mg PO DAILY Qty: 30 0RF Continued docusate sodium [Colace] 100 mg capsule 100 mg PO BID Qty: 14 0RF carvedilol 6.25 mg tablet 6.25 mg PO BID sacubitril-valsartan [Entresto] 24-26 mg tablet 1 tab PO BID Other Ambulatory Orders: Miscellaneous Procedure (Order) Location: None Selected Ordered By: Francisco Javier Cervantes Referrals: [facility] Infusion [facility] [Outside] (You have been set up to come in outpatient for IV antibiotics and wound care. Your appointment time for your antibiotic will be at 2:00 Monday- this week. On Monday, your appointment is at at 10:00. Your wound care appointment is scheduled for 1:00 on Monday- this week, and on Monday at 09:30. On the weekends, your appointment is at 09:00 in the outpatient surgical center. You will need to check in through the emergency entrance for this. You will receive both your antibiotic and wound care at the surgical center on the weekends. ) Francisco Javier Cervantes DO [Physician] - 07/01/24 9:20 am Duarte Sloan MD [Physician] - 06/24/24 9:00 am (ADDRESS INCORRECT. REFERRAL TO WOUND CARE. ) Itz Pierson MD [Primary Care Provider] - 4-7 days (We have notified your physician's clinic of the need for a follow-up appointment to be scheduled. If you have not heard from them within the next 2 business days, please call them directly. ) Discharge Diet: Cardiac and Low Salt Discharge Activity: Resume usual activity and Increase activity as tolerated Patient Instructions: Acute Wound Care (DC), Opioid Safety, Post Anesthesia Care Activity Restrictions/Additional Instructions: Restrict fluid intake to less than 1500 cc, salt intake to less than 2 g daily. Advised to check his weight daily at home. Is advised that weight today would be the dry weight and if body weight increases by around 5 pounds, patient is to take an extra dose of Lasix daily till body weight comes down to weight today. If not able to come down to dry body weight in 1 week, then is to call cardiology office for further recommendations. Patient was counseled in detail to take medications regularly as prescribed. Follow-up with the primary care provider and wound care as directed. PICC line should be removed after IV antibiotic course has been completed. Weekly blood work to be followed up by primary care provider. Discharge Attestations Time Spent in Discharge Care*: greater than 30 min Specific Discharge Activities: educating patient, educating and/or supporting family/caregiver, discussing with immigration case worker/social workers/dc planners, documenting/other paperwork and evaluating patient/reviewing data Status at Discharge: Cognitive status at discharge: cognitively intact, Behavioral status at discharge: cooperative, Functional status at discharge: independent ambulation, Overall status at discharge: patient is progressing back to baseline Quality Metrics Clinical Quality Measures [ No reported AMI, CVA or VTE this stay] Coding Level of Care Code 97877 Total time (in minutes) for Discharge: 60 Diagnoses Hypertensive urgency I16.0 Primary hypertension I10 Hypertension type: primary hypertension Acute on chronic systolic congestive heart failure I50.23 Heart failure chronicity: acute on chronic Heart failure type: systolic Acute exacerbation of CHF (congestive heart failure) I50.9 Heart failure type: unspecified
[2024-06-17] MEDS: morphine 4 mg/mL SDV 1 mL 2 MG IVP (17:34)
--- NOTE | 2024-06-17 17:42 | PC.NURSE ---
Upon d/c order being placed, Annalisa Mackey, golf course ranger presented to the floor to finalize d/c needs and patient became upset, stating that he couldn't d/c today d/t having no electricity and other personal issues at this time. I spoke with Dr. Melgoza and he instructed me to cancel the d/c order for today with plans to d/c tomorrow, 06/18/2024.
[2024-06-17 17:43] LABS: Glucose Point of Care 111 mg/dL (70-110)
[2024-06-17] MEDS: HYDROcodone-acetaminophen 5-325 mg Tablet 1 TAB PO (20:35)
[2024-06-17 20:59] LABS: Glucose Point of Care 136 mg/dL (70-110)
[2024-06-17 21:59] LABS: MRSA PCR OZH (swab) NOT DETECTED (Negative)
[2024-06-18] VITALS (7 sets, daily range): BP systolic 140–153; BP diastolic 72–98; PULSE 70–100; RESP 16–19; TEMP 36.4–36.8; O2SAT 97–99
[2024-06-18] MEDS: sucralfate 1 gm/10 mL Oral Liq UDC PO ×4 (00:18→18:02)
[2024-06-18] MEDS: meropenem 1,000 mg SDV 1000 MG IVP ×3 (00:18→17:10)
[2024-06-18] MEDS: morphine 4 mg/mL SDV 1 mL 2 MG IVP (05:09)
[2024-06-18 05:29] LABS: Basophils # 0.1 10^3/uL (0.0-0.1); Basophils % 1.1 %; Eosinophils # 0.3 10^3/uL (0.0-0.8); Eosinophils % 5.2 %; Hematocrit 31.5 % (37-53); Lymphocytes # 1.1 10^3/uL (0.8-4.8); Mean Corpuscular HGB Conc 29.2 g/dL (30-55); Mean Corpuscular Hemoglobin 23.9 pg (27-33); Mean Corpuscular Volume 81.8 fl (82-101); Mean Platelet Volume 9.6 fL (7.4-10.4); Monocytes # 0.6 10^3/uL (0.2-0.9); Neutrophils # 3.28 10^3/uL (1.8-7.7); Neutrophils % 61.1 %; Nucleated Red Blood Cells % 0 %; Platelet Count 192 10^3/cmm (157-399); Red Blood Count 3.85 10^6/uL (3.85-5.65); Red Cell Distribution Width 26.8 % (12.1-15.1); White Blood Count 5.37 10^3/uL (3.29-11.43)
[2024-06-18 05:52] LABS: Alanine Aminotransferase 9 U/L (0-41); Albumin Level 2.8 g/dL (3.5-5.2); Alkaline Phosphatase 138 U/L (40-130); Anion Gap 11.8 (5-19); Aspartate Amino Transferase 17 U/L (0-40); Blood Urea Nitrogen 39 mg/dL (8-23); Calcium 8.1 mg/dL (8.5-10.5); Carbon Dioxide 31 mmol/L (22-29); Chloride 99 mmol/L (98-107); Creatinine Clr Calc Pharmacy 68.1801; Globulin 2.7 g/dL (1.3-4.6); Glomerular Filtration Rate 55.6 mL/min (90-130); Glucose 101 mg/dL (65-115); Magnesium 1.6 mg/dL (1.7-2.3); Osmolality Calculated 296 mOsm/kg (285-295); Phosphorus 1.6 mg/dL (2.5-4.5); Potassium 3.8 mmol/L (3.5-5.1); Sodium 138 mmol/L (136-145); Total Bilirubin 0.7 mg/dL (0.15-1.2); Total Protein 5.5 g/dL (6.6-8.7)
[2024-06-18 06:45] LABS: Glucose Point of Care 147 mg/dL (70-110)
[2024-06-18] MEDS: aspirin 81 mg EC Tablet PO (08:21)
[2024-06-18] MEDS: sennosides-docusate Tablet 1 TAB PO (08:21)
[2024-06-18] MEDS: potassium chloride ER 20 mEq Tablet PO (08:21)
[2024-06-18] MEDS: pantoprazole DR 40 mg Tablet PO ×2 (08:21→17:09)
[2024-06-18] MEDS: FUROsemide 40 mg Tablet PO (08:22)
[2024-06-18] MEDS: carvedilol 6.25 mg Tablet PO ×2 (08:22→17:09)
[2024-06-18] MEDS: insulin lispro 100 unit/1 mL SUBCUT (08:22)
[2024-06-18] MEDS: heparin 5,000 unit/mL INJ 1 mL 5000 UNIT SUBCUT (08:22)
[2024-06-18] MEDS: linezolid premix 600 MG/300 ML PREMIX 300 MG IV (08:23)
[2024-06-18] MEDS: nystatin powder 15 gm Btl 1 APPLIC TOPICAL ×2 (08:24→17:11)
[2024-06-18 11:50] LABS: Glucose Point of Care 127 mg/dL (70-110)
--- NOTE | 2024-06-18 13:42 | P.PN_ITS ---
<Statement entered by Tom Martinez MD - 06/18/24 19:58> Patient was evaluated and cared for in conjunction with an advanced practice practitioner. I have not personally examined the patient but I have reviewed the chart and all pertinent data including imaging, telemetry, and laboratory results. Subjective 2 Subjective: Patient is stable overall. Creatinine has come down to baseline at 1.3. He is well compensated from a heart failure standpoint. Currently on carvedilol 6.25 mg. Blood pressure has been stable. Vitals/I&O/Wt Last Vital Signs Temp 98.3 F 06/18/24 12:00 Pulse 87 06/18/24 12:00 Resp 19 H 06/18/24 12:00 BP 146/82 06/18/24 12:00 Pulse Ox 97 06/18/24 12:00 O2 Del Method Room Air 06/18/24 12:00 O2 Flow Rate 2.5 06/17/24 14:33 06/17/24 06/18/24 06/18/24 22:59 06:59 14:59 Intake Total 900 / 1920 240 / 2160 540 / 540 Output Total 650 / 750 300 / 1050 Balance 250 / 1170 -60 / 1110 540 / 540 Weight last 48 hrs Weight 229 lb Weight 226 lb 1.6 oz Physical Exam 2 Narrative: General: No apparent distress, healthy appearing, well nourished HENMT: normoceophalic Muskuloskeletal: Full ROM Lymphatic: no lymphedema noted Respiratory: Normal respiratory effort, clear to auscultation bilaterally throughout all lung brasher, no use of accessory muscles Cardio: No JVD, regular rate, regular rhythm, S1 S2 normal, no murmurs, peripheral pulses 2+ throughout GI: Normal to inspection, nondistended Extremities: Full ROM, normal, normal capillary refill, no cyanosis Neuro: Alert and oriented x4, no focal motor deficits Psych: Affect normal, denies suicidal ideation, mental status grossly normal Skin: Bilateral lower extremities are wrapped up due to wounds, he has a toe amputation present that looks necrotic at the base Urinary Catheter Management: Marsh: Cath Placed During This Visit: yes, but has since been removed by the nurse Reason for Continuing Indwelling Catheter: Other Urinary Catheter Date of Insertion: 06/10/24 Urinary Catheter Time of Insertion: 21:38 Date Urinary Catheter Removed: 06/15/24 Time Urinary Catheter Discontinued: 05:50 Data 06/18/24 04:49 06/18/24 04:49 Micro: Microbiology 06/12/24 14:30 Gram Stain - Final Leg - Left Anaerobic Culture - Preliminary Wound Culture - Final Achromobacter xylosoxidans sub A&P Assessment and plan (1) Hypertensive urgency: (2) Hypertension: Qualifiers: Hypertension type: primary hypertension Qualified Code(s): I10 - Essential (primary) hypertension (3) Congestive heart failure: Qualifiers: Heart failure chronicity: acute on chronic Heart failure type: systolic Qualified Code(s): I50.23 - Acute on chronic systolic (congestive) heart failure (4) Acute exacerbation of CHF (congestive heart failure): Qualifiers: Heart failure type: unspecified Qualified Code(s): I50.9 - Heart failure, unspecified Plan Patient has come in with CHF exacerbation and infected lower extremity wounds. He has lost pound since admission and overall looks euvolemic. Recommend continue current care with carvedilol, lasix, potassium. At this time patient has low EF and needs a LifeVest. I did discuss this with the patient. EF is around 15%. This has been ordered. His blood pressure has stabilized. Creatinine is improving. We will go ahead and reintroduce Entresto. From a cardiology standpoint no changes. PDMP PDMP Reviewed: Not Reviewed Attestations 2 Medical Necessity Statement*: Deferred to primary Coding Level of Care Code Acute Code for Chg Fwd Diagnoses Hypertensive urgency I16.0 Primary hypertension I10 Hypertension type: primary hypertension Acute on chronic systolic congestive heart failure I50.23 Heart failure chronicity: acute on chronic Heart failure type: systolic Acute exacerbation of CHF (congestive heart failure) I50.9 Heart failure type: unspecified
--- NOTE | 2024-06-18 14:05 | PM.PN ---
Subjective Subjective: Patient has been stable awaiting LifeVest. No new complaints overnight. Vitals/I&O/Wt Last Vital Signs Temp 98.3 F 06/18/24 12:00 Pulse 87 06/18/24 12:00 Resp 19 H 06/18/24 12:00 BP 146/82 06/18/24 12:00 Pulse Ox 97 06/18/24 12:00 O2 Del Method Room Air 06/18/24 12:00 O2 Flow Rate 2.5 06/17/24 14:33 06/17/24 06/18/24 06/18/24 22:59 06:59 14:59 Intake Total 900 / 1920 240 / 2160 540 / 540 Output Total 650 / 750 300 / 1050 Balance 250 / 1170 -60 / 1110 540 / 540 Weight last 48 hrs Weight 103.873 kg Weight 102.557 kg Physical Exam Narrative: General: No apparent distress, healthy appearing, well nourished HENMT: normoceophalic Muskuloskeletal: Full ROM Lymphatic: no lymphedema noted Respiratory: Normal respiratory effort, clear to auscultation bilaterally throughout all lung brasher, no use of accessory muscles Cardio: No JVD, regular rate, regular rhythm, S1 S2 normal, no murmurs, peripheral pulses 2+ throughout GI: Normal to inspection, nondistended Extremities: Full ROM, normal, normal capillary refill, no cyanosis Neuro: Alert and oriented x4, no focal motor deficits Psych: Affect normal, denies suicidal ideation, mental status grossly normal Skin: Bilateral lower extremities are wrapped up due to wounds, he has a toe amputation present that looks necrotic at the base Urinary Catheter Management: Marsh: Cath Placed During This Visit: yes, but has since been removed by the nurse Reason for Continuing Indwelling Catheter: Other Urinary Catheter Date of Insertion: 06/10/24 Urinary Catheter Time of Insertion: 21:38 Date Urinary Catheter Removed: 06/15/24 Time Urinary Catheter Discontinued: 05:50 Data 06/18/24 04:49 06/18/24 04:49 Micro: Microbiology 06/12/24 14:30 Gram Stain - Final Leg - Left Anaerobic Culture - Preliminary Wound Culture - Final Achromobacter xylosoxidans sub A&P Assessment and plan (1) Gout: Qualifiers: Gout site: toe Gout etiology: unspecified cause Chronicity: chronic Laterality: right Presence of tophus: without tophus Qualified Code(s): M1A.9XX0 - Chronic gout, unspecified, without tophus (tophi) (2) Open wound of both lower extremities: (3) Bilateral leg ulcer: Qualifiers: Non-pressure ulcer stage: unspecified non-pressure ulcer stage Qualified Code(s): L97.919 - Non-pressure chronic ulcer of unspecified part of right lower leg with unspecified severity; L97.929 - Non-pressure chronic ulcer of unspecified part of left lower leg with unspecified severity (4) Lower extremity edema: (5) Anasarca: (6) Acute exacerbation of CHF (congestive heart failure): Qualifiers: Heart failure type: unspecified Qualified Code(s): I50.9 - Heart failure, unspecified (7) Hypertension: Qualifiers: Hypertension type: primary hypertension Qualified Code(s): I10 - Essential (primary) hypertension (8) Type 2 diabetes mellitus: Qualifiers: Diabetes mellitus complication detail: with peripheral angiopathy without gangrene Diabetes mellitus complication status: with circulatory complication 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 Stable today. Proceed with discharge once LifeVest and discharge disposition arranged. PDMP PDMP Reviewed: Not Reviewed Attestations Medical Necessity Statement*: Patient requires hospitalization for bilateral remedy wounds, requiring wound care, IV antibiotics, CHF requiring diuresis Coding Level of Care Code Acute Code for Chg Fwd Diagnoses Chronic gout involving toe of right foot without tophus, unspecified cause M1A.9XX0 Gout site: toe Gout etiology: unspecified cause Chronicity: chronic Laterality: right Presence of tophus: without tophus Open wound of both lower extremities S81.801A; S81.802A Ulcers of both lower extremities, unspecified ulcer stage L97.919; L97.929 Non-pressure ulcer stage: unspecified non-pressure ulcer stage Lower extremity edema R60.0 Anasarca R60.1 Acute exacerbation of CHF (congestive heart failure) I50.9 Heart failure type: unspecified Primary hypertension I10 Hypertension type: primary hypertension Type 2 diabetes mellitus with diabetic peripheral angiopathy without gangrene, without long-term current use of insulin E11.51 Diabetes mellitus complication detail: with peripheral angiopathy without gangrene Diabetes mellitus complication status: with circulatory complication 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
[2024-06-18] MEDS: HYDROcodone-acetaminophen 5-325 mg Tablet 1 TAB PO (16:08)
[2024-06-18 16:23] LABS: Glucose Point of Care 121 mg/dL (70-110)
[2024-06-18] MEDS: sacubitril/valsartan 24-26 mg Tablet 1 EACH PO (17:09)
[2024-06-18] MEDS: magnesium sulfate premix 1 GM/100 ML PIGGYBACK IV (18:02)
--- NOTE | 2024-06-18 19:56 | PC.NURSE ---
Day shift nurse removed patient's peripheral line. Midline left in place for outpatient antibiotics. Patient left via vehicle of a friend with all belongings. Patient signed discharge paperwork. Dr. Valenzuela sent prescription for NANDO Stoll to [facility] pharmacy.
== END 2024-06-18 20:00 | disposition home or self-care (01) | DRG 264 ==
LOC: ER 19:25 → ER IP 22:03 → CSU 06-11 02:02 → ICU 06-12 06:41 → MEDSURG 06-13 15:04
PROVIDERS: Family Medicine; Student in an Organized Health Care Education/Training Program; Surgery; Admitting Provider Internal Medicine; Emergency Provider Physician Assistant; PCP Family Medicine; Visit Provider Hospitalist
PROC: 0KBT0ZZ Excision of Left Lower Leg Muscle, Open Approach (ICD-10-PCS; principal; 2024-06-12 12:30)
PROC: 0KBS0ZZ Excision of Right Lower Leg Muscle, Open Approach (ICD-10-PCS; principal; 2024-06-13 12:45)
DX: I13.0 Hypertensive heart and chronic kidney disease with heart failure and stage 1 through stage 4 chronic kidney disease, or unspecified chronic kidney disease (principal); A41.9 Sepsis, unspecified organism; I50.23 Acute on chronic systolic (congestive) heart failure; R65.21 Severe sepsis with septic shock; R57.0 Cardiogenic shock; I44.2 Atrioventricular block, complete; E87.20 Acidosis, unspecified; L03.116 Cellulitis of left lower limb; L03.115 Cellulitis of right lower limb; Z16.30 Resistance to unspecified antimicrobial drugs; L97.929 Non-pressure chronic ulcer of unspecified part of left lower leg with unspecified severity; L97.919 Non-pressure chronic ulcer of unspecified part of right lower leg with unspecified severity; N17.9 Acute kidney failure, unspecified; G93.40 Encephalopathy, unspecified; I42.8 Other cardiomyopathies; N18.9 Chronic kidney disease, unspecified; D64.9 Anemia, unspecified; E83.42 Hypomagnesemia; B96.89 Other specified bacterial agents as the cause of diseases classified elsewhere; I87.8 Other specified disorders of veins; E66.01 Morbid (severe) obesity due to excess calories; Z68.33 Body mass index [BMI] 33.0-33.9, adult; M1A.9XX0 Chronic gout, unspecified, without tophus (tophi); E11.22 Type 2 diabetes mellitus with diabetic chronic kidney disease; E11.51 Type 2 diabetes mellitus with diabetic peripheral angiopathy without gangrene; J10.1 Influenza due to other identified influenza virus with other respiratory manifestations; M05.89 Other rheumatoid arthritis with rheumatoid factor of multiple sites; Z91.199 Patient's noncompliance with other medical treatment and regimen due to unspecified reason; Z95.0 Presence of cardiac pacemaker; Z89.422 Acquired absence of other left toe(s); Z79.84 Long term (current) use of oral hypoglycemic drugs; Z79.02 Long term (current) use of antithrombotics/antiplatelets
CPT/HCPCS: 36415; 36416; 36569; 36600; 51702; 70450; 71045; 71046; 73620; 80048; 80053; 81001; 82306; 82803; 82962; 83036; 83605; 83735; 83880; 84100; 84145; 84484; 85025; 85378; 85610; 85651; 85730; 86140; 87040; 87070; 87075; 87077; 87086; 87186; 87205; 87637; 93005; 93308; 93970; 96365; 96367; 96372; 96376; 97116; 97161; 97162; 97166; 97530; 97535; 99285; C1751; J0360; J1100; J1610; J1644; J1815; J1940; J2020; J2060; J2185; J2250; J2270; J2543; J2704; J2795; J3010; J3370; J3475; J7050

== ENCOUNTER 2024-06-27 14:00 | Oncology outpatient (recurring) (ONCR) | payer BC, MEDICAID, SELFPAY ==
[2024-06-19 13:30] VITALS: BP 171/106; PULSE 90; RESP 16; TEMP 36.1; O2SAT 97
--- NOTE | 2024-06-19 14:16 | PC.NURSE ---
Pt to OPS for dressing change to lower extremities. Wet to dry performed to bilat venous stasis ulcers. Pt tolereated well. Taken to [facility] infusion center via wheelchair following dressing change for IV antibiotic. Significant other also with patient.
[2024-06-19] MEDS: ertapenem 1,000 mg SDV 1000 MG IVP (14:48)
[2024-06-19 15:03] VITALS: BP 155/108; PULSE 73; RESP 18; TEMP 35.7; O2SAT 100
[2024-06-20 14:21] VITALS: BMI 34.7
--- NOTE | 2024-06-20 14:28 | SUR.PREOP ---
Patient was late to appointment today 06-20-24 due to friend who brought him not knowing which entrance to go to or how to get him to our department. Patient says he does not have a phone right now either.
[2024-06-20 14:31] VITALS: BP 136/86; PULSE 91; RESP 18; TEMP 36.3; O2SAT 97
[2024-06-20 14:40] VITALS: BP 146/92; PULSE 72; RESP 17; TEMP 36.4; O2SAT 100
[2024-06-20] MEDS: ertapenem 1,000 mg SDV 1000 MG IVP (15:39)
[2024-06-20 15:55] VITALS: BP 143/99; BP 153/99; PULSE 89; PULSE 98; RESP 17; RESP 18; TEMP 36.5; O2SAT 100
[2024-06-21 09:40] VITALS: BP 156/101; PULSE 93; RESP 19; TEMP 36.4; O2SAT 98
[2024-06-21 11:16] VITALS: BP 147/88; PULSE 89; RESP 17; TEMP 36.7; O2SAT 96
[2024-06-21] MEDS: ertapenem 1,000 mg SDV 1000 MG IVP (11:35)
[2024-06-22 09:10] VITALS: BP 136/96; PULSE 104; RESP 16; TEMP 36.3; O2SAT 98
[2024-06-22] MEDS: ertapenem 1,000 mg SDV 1000 MG IVP (09:54)
[2024-06-23] MEDS: ertapenem 1,000 mg SDV 1000 MG IVP (09:16)
--- NOTE | 2024-06-27 10:39 | PC.NURSE ---
Pt scheduled for daily Outpatient infusions from 06/18/24 through 06/30/24. On Monday06/24/24, pt made his Wound Care appointment and stated he needed someone to take his midline out because he was done with infusions. Unable to reach patient by phone to educate infusions are through 06/30/24. Pt has very poor history of making follow up appointments. Pt has not made his outpatient infusion appointment since 06/23/24. Dr. Burleson, hospitalist, notified. Orders received to stop antibiotics and remove midline. Unable to reach pt by phone or any contact numbers listed. Pt scheduled at Wound Care on 06/28/24. Orders sent to Wound Care to [facility] updated as well.
== END 2024-07-05 23:59 | disposition home or self-care (01) ==
PROVIDERS: PCP Family Medicine; Visit Provider Student in an Organized Health Care Education/Training Program
DX: Z53.9 Procedure and treatment not carried out, unspecified reason (principal)
CPT/HCPCS: 96374; 99212; J1335

== ENCOUNTER → 2024-07-01 10:38 | Outpatient (BNVA) | payer BC, MEDICAID, SELFPAY | PROVIDERS: PCP Family Medicine; Visit Provider Thoracic Surgery (Cardiothoracic Vascular Surgery) | DX: I50.23 Acute on chronic systolic (congestive) heart failure (principal); E11.51 Type 2 diabetes mellitus with diabetic peripheral angiopathy without gangrene; S81.801A Unspecified open wound, right lower leg, initial encounter; S81.802A Unspecified open wound, left lower leg, initial encounter; X58.XXXA Exposure to other specified factors, initial encounter | CPT/HCPCS: 87070; 87176; 87205 ==

== ENCOUNTER → 2024-07-09 10:42 | Outpatient (BNVA) | payer MEDICARE, MEDICAID, SELFPAY | PROVIDERS: PCP Family Medicine; Visit Provider Thoracic Surgery (Cardiothoracic Vascular Surgery) | DX: E11.52 Type 2 diabetes mellitus with diabetic peripheral angiopathy with gangrene (principal); E11.621 Type 2 diabetes mellitus with foot ulcer; L97.522 Non-pressure chronic ulcer of other part of left foot with fat layer exposed; E11.622 Type 2 diabetes mellitus with other skin ulcer; L97.821 Non-pressure chronic ulcer of other part of left lower leg limited to breakdown of skin; L97.812 Non-pressure chronic ulcer of other part of right lower leg with fat layer exposed; L97.811 Non-pressure chronic ulcer of other part of right lower leg limited to breakdown of skin | CPT/HCPCS: 11042; 11045; 97597; 97598 ==

== ENCOUNTER 2024-08-23 12:11 | Inpatient (IN) | payer MEDICARE, SELFPAY ==
--- NOTE | 2024-08-23 12:14 | ECG_ITS ---
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 Measurements Intervals Lititz Rate: 92 P: 48 IA: 178 QRS: 25 QRSD: 103 T: 131 QT: 367 QTc: 454 Interpretive Statements SINUS RHYTHM LOW QRS VOLTAGE [QRS DEFLECTION < 0.5/1.0 mV IN LIMB/CHEST LEADS] POSSIBLE ANTERIOR MYOCARDIAL INFARCTION , PROBABLY OLD Compared to ECG 06/12/2024 08:48:28 Myocardial infarct finding now present T-wave abnormality no longer present Electronically Signed On 08-24-2024 13:16:45 CDT by Diamante Wright M.D. [email or web address]
--- NOTE | 2024-08-23 12:14 | USCV_ITS ---
Ely Hare Age: 64 Gender: M : 1960 Exam Date: 08/23/2024 12:54 Ordering Phys: Curt Daley DO Technologist: Jeremiah Deleon Exam Location: [facility]_ Indication: pain swelling PROCEDURES: Venous duplex imaging was performed in bilateral lower extremities. The following venous structures were evaluated: common femoral vein, profunda vein, proximal portion of the greater saphenous vein, superficial femoral vein, and the popliteal vein. In addition, the posterior tibial and peroneal trunk were evaluated. Serial compression, augmentation maneuvers, and spectral Doppler flow evaluation were performed. FINDINGS: Normal 2-D Doppler and augmentation and compressibility throughout the lower extremity venous structures. Additional imaging through the proximal calf veins also reveals no thrombus. Limited evaluation of the greater saphenous vein is patent with no thrombus. Bilateral subcutaneous edema. CONCLUSIONS No DVT bilateral lower extremities. Dr. Nuzhat Stewart DO (Electronically Signed) Final Date: 23 August 2024 14:37 S
--- NOTE | 2024-08-23 12:32 | PC.PHAR ---
called pharmacy to verify, most meds that were prescribed aren't being covered by medicaid and patient cant afford. only thing filled remotely recently are carvedilol 6.25 and furosemide 40mg
[2024-08-23 12:50] LABS: Basophils # 0.1 10^3/uL (0.0-0.1); Basophils % 1.2 %; Hematocrit 38.9 % (37-53); Lymphocytes # 1.1 10^3/uL (0.8-4.8); Lymphocytes % 11.8 %; Mean Corpuscular HGB Conc 28.5 g/dL (30-55); Mean Corpuscular Hemoglobin 26.3 pg (27-33); Mean Corpuscular Volume 92.2 fl (82-101); Mean Platelet Volume 9.8 fL (7.4-10.4); Monocytes # 0.9 10^3/uL (0.2-0.9); Monocytes % 9.7 %; Nucleated Red Blood Cells % 0 %; Platelet Count 315 10^3/cmm (157-399); Red Blood Count 4.22 10^6/uL (3.85-5.65); Red Cell Distribution Width 17.2 % (12.1-15.1); White Blood Count 9.22 10^3/uL (3.29-11.43)
[2024-08-23 12:57] VITALS: BP 140/94; PULSE 85; RESP 18; TEMP 36.7; O2SAT 96
[2024-08-23 13:05] LABS: Alanine Aminotransferase 13 U/L (0-41); Albumin Level 3.2 g/dL (3.5-5.2); Alkaline Phosphatase 165 U/L (40-130); Anion Gap 14.8 (5-19); Aspartate Amino Transferase 22 U/L (0-40); Blood Urea Nitrogen 22 mg/dL (8-23); Calcium 8.6 mg/dL (8.5-10.5); Carbon Dioxide 23 mmol/L (22-29); Chloride 110 mmol/L (98-107); Globulin 2.8 g/dL (1.3-4.6); Glucose 97 mg/dL (65-115); Osmolality Calculated 301 mOsm/kg (285-295); Potassium 3.8 mmol/L (3.5-5.1); Sodium 144 mmol/L (136-145); Total Bilirubin 1.1 mg/dL (0.15-1.2)
--- NOTE | 2024-08-23 13:10 | ED_ITS ---
HPI - Skin/Abscess/Foreign Bdy 2 General: Chief complaint: Skin/Abscess/Foreign Body Stated complaint: hector open legs wounds Time Seen by Provider: 08/23/24 12:14 History of Present Illness: 64-year-old male who presents emergency room directed here from outpatient clinic with chronic open wounds on his legs he is supposed to be seeing wound care but has not been there recently. Wounds are very foul-smelling dressings do not appear to have been changed in some time patient admits is likely been a week or more. He has noticed increased swelling and shortness of breath. He denies fever sweats or chills no chest pain or abdominal pain Associated symptoms: Deny chills or fever(s) Related Data Previous Rx's ?Medication ?Instructions ?Recorded aspirin 81 mg tablet,delayed 81 mg PO DAILY #30 tabs 0 06/17/24 release sodium hypochlorite 0.125 % 1 applic topical DAILY #47 3 mL 07/09/24 solution (Dakin's Solution) carvedilol 6.25 mg tablet 6.25 mg PO BID #60 tabs 01/30 dapagliflozin propanediol 10 mg 10 mg PO DAILY #30 tab s 08/14/24 tablet (Farxiga) furosemide 40 mg tablet 40 mg PO DAILY@0800 #30 tabs 08/14/24 sacubitril 24 mg-valsartan 26 mg 1 tab PO BID #30 tabs 08/14/24 tablet (Entresto) Allergies Allergy/AdvReac Type Severity Reaction Status Date / Time No Known Allergies Allergy Verified 08/23/24 11:26 Review of Systems 2 Const: Denies: fever(s) or chills Card: Denies: chest pain Resp: Denies: dyspnea GI: Denies: abdominal pain : Denies: dysuria, urinary frequency or urinary urgency Musc: Denies: neck pain or back pain Skin/Breast: Reports: non-healing lesions and lesions PFSH ED 2 PFSH: Medical History Chronic wound of extremity HFrEF (heart failure with reduced ejection fraction) Hypertensive urgency BMI 37.0-37.9, adult Lower extremity edema Third degree heart block Status post pacemaker placement, 2024 [facility] Congestive heart failure Gout Immunization counseling Seropositive rheumatoid arthritis of multiple sites Hypertension Surgical History History of hernia repair Family History Mother Cancer breast Father Cancer non hodgkins lymphoma Other CAD (coronary artery disease) Diabetes Family history of premature coronary artery disease Denies family history of Rheumatoid arthritis Lupus Hyperlipidemia Chronic kidney disease (CKD) Lung disease Hypertension Stroke Social History Smoking and tobacco/nicotine status: never used tobacco/nicotine Alcohol intake: never Substance/Drug Use: never Lives independently: Yes Marital status: Single Number of children: 1 Current occupational status: retired Special jennifer needs: No Agree to transfusion: Yes Physical Exam 2 Const: GENERAL APPEARANCE: cooperative ORIENTATION/CONSCIOUSNESS: Yes awake, Yes oriented to person, Yes oriented to place and Yes oriented to time HENMT: COMMON NORMALS: normocephalic, atraumatic and hearing grossly normal bilaterally HEAD & SCALP: normocephalic and atraumatic Resp: COMMON NORMALS: normal respiratory effort, No retractions, No use of accessory muscles and clear to auscultation bilaterally AUSCULTATION: clear to auscultation bilaterally Cardio: COMMON NORMALS: regular rate, regular rhythm and No murmurs present (Cardio) RATE: regular rate RHYTHM: regular rhythm GI: COMMON NORMALS: Soft to palpation and No hepatosplenomegaly present A USCULTATION: Yes normoactive bowel sounds PALPATION: Yes Soft to palpation, No Tenderness to palpation present (GI), No Guarding due to palpation present (GI) and Yes No hepatosplenomegaly present Extremity: OTHER: Foul-smelling lower leg lesions see pictures below. Attempted to take further pictures of the leg ulcers particularly the right leg ulcer however the shanna was not working properly and would not uploaded. Patient has an extensive ulcer on the lateral of the left lower leg. No heel ulcers noted. Multiple small full- thickness ulcers bilaterally. 3+ edema. Edema extends to the level of the umbilicus with presacral edema. At the amputation site of the second great toe wound is open and has purulent drainage at its base. Neuro: SENSORIUM/ORIENTATION: Yes oriented to person, Yes oriented to place and Yes oriented to time Skin: COMMON NORMALS: no rashes or lesions noted GENERAL SKIN EXAM: no rashes or lesions noted Course 2 Vital Signs: Vital signs: Vital Signs Temperature 97.6 F 08/24/24 04:00 Pulse Rate 99 08/24/24 04:00 Respiratory Rate 19 H 08/24/24 04:00 Blood Pressure 124/90 08/24/24 04:00 Pulse Oximetry 96 08/24/24 04:00 Oxygen Delivery Me thod Nasal Cannula 08/24/24 04:00 MDM - Skin/Abscess/Foreign Bdy Medicial Decision Making Will admit for congestive heart failure cellulitis chronic open wounds. These may need to be debrided. Cultures done initially we will start on antibiotics. He will require diuresis and then reevaluation of the wounds for possible debridement. Medical Records I reviewed the patient's medical records. Lab Data I reviewed the patient's lab results. 08/24/24 05:14 08/23/24 12:[address] 08/23/24 17:00 IMPRESSION: 1. There is diffuse skin thickening and subcutaneous edema of the lower leg, ankle and foot may reflect cellulitis, lymphedema or venous stasis. No localized fluid collection or abscess. 2. No bony destruction or osteomyelitis. No acute fracture or dislocation. 3. Large peroneal tubercle of the lateral calcaneus with adjacent bony erosion/divot of the lateral calcaneus compatible with reactive changes to severe chronic peroneal tendinopathy. 4. There is marked enlargement of the peroneus longus and less prominently the peroneus brevis tendons compatible with marked tendinopathy and tenosynovitis. Lower Extremity CT 08/23/24 17:00 IMPRESSION: 1. There is interval increasing abundant soft tissue edema and skin thickening of the entire lower leg and visualized hindfoot may reflect cellulitis, lymphedema or venous stasis. There is also a divot or defect of the skin surface of the anteromedial mid to distal 3rd and posterolateral mid to distal 3rd of the leg concerning for soft tissue ulcer without localized fluid collection or abscess. 2. No intramuscular abscess. No compartment syndrome. No gas in the muscles or soft tissues. 3. Directly beneath the defect of the skin surface/ulcer, there is subtle periosteal reaction of the anteromedial tibia compatible with reactive changes or very early superficial osteomyelitis. The density of the tibia is preserved. There is no destruction of the deeper bony cortex, endosteal remodeling or destruction in the marrow trabecular pattern. Specifically, this has a very superficial appearance and may reflect reactive changes to cellulitis. No additional bony destruction osteomyelitis. Laboratory Results WBC 9.22 10^3/uL (3.29-11.43) 08/23/24 12:37 RBC 4.22 10^6/uL (3.85-5.65) 08/23/24 12:37 Hgb 11.10 g/dL (11.27-16.99) L 08/23/24 12:37 Hct 38.9 % (37-53) 08/23/24 12:37 MCV 92.2 fl (82-101) 08/23/24 12:37 MCH 26.3 pg (27-33) L 08/23/24 12:37 MCHC 28.5 g/dL (30-55) L 08/23/24 12:37 RDW 17.2 % (12.1-15.1) H 08/23/24 12:37 Plt Count 315 10^3/cmm (157-399) 08/23/24 12:37 MPV 9.8 fL (7.4-10.4) 08/23/24 12:37 Neut % (Auto) 77.0 % 08/23/24 12:37 Lymph % (Auto) 11.8 % 08/23/24 12:37 [place] % (Auto) 9.7 % 08/23/24 12:37 Eos % (Auto) 0.0 % 08/23/24 12:37 Baso % (Auto) 1.2 % 08/23/24 12:37 Neut # (Auto) 7.10 10^3/uL (1.8-7.7) 08/23/24 12:37 Lymph # (Auto) 1.1 10^3/uL (0.8-4.8) 08/23/24 12:37 [place] # (Auto) 0.9 10^3/uL (0.2-0.9) 08/23/24 12:37 Eos # (Auto) 0.0 10^3/uL (0.0-0.8) 08/23/24 12:37 Baso # (Auto) 0.1 10^3/uL (0.0-0.1) 08/23/24 12:37 Nucleated RBC % (auto) 0 % 08/23/24 12:37 Nucleated RBCs # 0.0 /100WBC 08/23/24 12:37 Sodium 144 mmol/L (136-145) 08/23/24 12:37 Potassium 3.8 mmol/L (3.5-5.1) 08/23/24 12:37 Chloride 110 mmol/L (98-107) H 08/23/24 12:37 Carbon Dioxide 23 mmol/L (22-29) 08/23/24 12:37 Anion Gap 14.8 (5-19) 08/23/24 12:37 BUN 22 mg/dL (8-23) 08/23/24 12:37 Creatinine 1.5 mg/dL (0.7-1.2) H 08/23/24 12:37 GFR Calculation 47.0 mL/min (90-130) L 08/23/24 12:37 Glucose 97 mg/dL (65-115) 08/23/24 12:37 POC Glucose 77 mg/dL (70-110) 08/23/24 18:28 Estimat Average Glucose 114 08/23/24 12:37 Hemoglobin A1c 5.6 % (4.0-6.0) 08/23/24 12:37 Calculated Osmolality 301 mOsm/kg (285-295) H 08/23/24 12:37 Lactic Acid 2.1 mmol/L (0.5-2.2) 08/23/24 15:20 Calcium 8.6 mg/dL (8.5-10.5) 08/23/24 12:37 Total Bilirubin 1.1 mg/dL (0.15-1.2) 08/23/24 12:37 AST 22 U/L (0-40) 08/23/24 12:37 ALT 13 U/L (0-41) 08/23/24 12:37 Alkaline Phosphatase 165 U/L (40-130) H 08/23/24 12:37 Total Protein 6.0 g/dL (6.6-8.7) L 08/23/24 12:37 Albumin 3.2 g/dL (3.5-5.2) L 08/23/24 12:37 Globulin 2.8 g/dL (1.3-4.6) 08/23/24 12:37 Urine Color Dark yellow (Yellow) A 08/23/24 14:46 Urine Appearance Clear (CLEAR) 08/23/24 14:46 Urine pH 5.5 (5-7) 08/23/24 14:46 Ur Specific [place] 1.026 (1.005-1.030) 08/23/24 14:46 Urine Protein 2+ (Negative) A 08/23/24 14:46 Urine Glucose (UA) Negative (Normal) 08/23/24 14:46 Urine Ketones Trace (Negative) 08/23/24 14:46 Urine Blood Negative (Negative) 08/23/24 14:46 Urine Nitrate Negative (Negative) 08/23/24 14:46 Urine Bilirubin 1+ (Negative) H 08/23/24 14:46 Urine Urobilinogen 2.0 mg/dL (Negative) H 08/23/24 14:46 Ur Leukocyte Esterase Negative (Negative) 08/23/24 14:46 Urine RBC 3-5 /hpf (0-2) 08/23/24 14:46 Urine WBC 0-5 /hpf (0-5) 08/23/24 14:46 Ur Squamous Epith Cells 0-5 /hpf (0-5) 08/23/24 14:46 Calcium Oxalate Crystal 0-4 /hpf H 08/23/24 14:46 Amorphous Sediment 1+ /hpf 08/23/24 14:46 Urine Bacteria Trace /hpf (NONE) 08/23/24 14:46 Hyaline Casts 1.65 /lpf 08/23/24 14:46 All radiology interpretation(s) finalized by discharge Discharge Plan Discharge Patient Disposition: Admitted As Inpatient Admit Provider: Adriana Andres Clinical Impression: Bilateral cellulitis of lower leg, Acute kidney injury, Anasarca, Chronic wound of extremity, Delayed surgical wound healing of toe amputation stump Acute exacerbation of CHF (congestive heart failure) Qualifiers: Heart failure type: unspecified Qualified Code(s): I50.9 - Heart failure, unspecified Open wound of both lower extremities Qualifiers: Encounter type: subsequent encounter Qualified Code(s): S81.801D - Unspecified open wound, right lower leg, subsequent encounter Type 2 diabetes mellitus Qualifiers: Diabetes mellitus fci insulin use: without fci use Diabetes mellitus complication status: with circulatory complication Diabetes mellitus complication detail: with peripheral angiopathy without gangrene Qualified Code(s): E11.51 - Type 2 diabetes mellitus with diabetic peripheral angiopathy without gangrene Condition: Stable Coding Level of Care Code ED Color Straining Bag Washer for Hannah Redman
[2024-08-23] MEDS: ondansetron 2 mg/ML SDV 2 mL 4 MG IVP (13:11)
[2024-08-23] MEDS: VANCOMYCIN ADD-Vantage 1,000 MG in 0.9% NaCl ADD-Vantage 250 ML 250 MG IV (13:36)
[2024-08-23 13:39] VITALS: BP 142/92; PULSE 91; O2SAT 95
[2024-08-23 14:00] VITALS: PULSE 88; O2SAT 95
[2024-08-23 15:18] VITALS: BP 131/98; PULSE 91; O2SAT 92
[2024-08-23 15:18] LABS: Bilirubin Urine 1+ (Negative); Blood Urine Negative (Negative); Glucose Urine UA Negative (Normal); Ketones Urine Trace (Negative); Leukocyte Esterase Urine Negative (Negative); Nitrate Urine Negative (Negative); Protein Urine 2+ (Negative); Specific Gravity, Urine 1.026 (1.005-1.030); Urine Appearance Clear (CLEAR); Urine Color Dark Yellow (Yellow); pH Urine 5.5 (5-7)
[2024-08-23 15:23] LABS: Add Urine Microscopic? YES; Hyaline Casts Urine 1.65 /lpf; Squamous Epithelial Cell Urine 0-5 /hpf (0-5); WBC Urine 0-5 /hpf (0-5)
[2024-08-23 15:37] LABS: Bacteria Urine TRACE /hpf; UA Slide Review UA Slide Review Perf
[2024-08-23 15:38] LABS: Amorphous Sediment Urine 1+ /hpf; Calcium Oxalate Crystals Urine 0-4 /hpf
[2024-08-23 15:43] LABS: Lactic Sepsis W/Reflex 2.1 mmol/L (0.5-2.2)
[2024-08-23 15:55] LABS: Reflex Lactate Order REFLEX LACTIC ORDERD
--- NOTE | 2024-08-23 17:00 | CTR_ITS ---
PROCEDURE INFORMATION: Exam: CT Right Lower Extremity Without Contrast, Leg Exam date and time: 08/23/2024 5:30 PM Age: 64 years old Clinical indication: Diabetic wound to RT lower extremity. ; Additional info: Assess for osteomyelitis, right chowdhury worsening wound with pus drainage TECHNIQUE: Imaging protocol: CT of the right lower extremity without contrast was performed. Exam focused on the lower leg. Radiation optimization: All CT scans at this facility use at least one of these dose optimization techniques: automated exposure control; mA and/or kV adjustment per patient size (includes targeted exams where dose is matched to clinical indication); or iterative reconstruction. COMPARISON: CT foot RT wo con* [id number] 08/23/2024 5:28 PM RADIATION DOSE METRICS: Total DLP (mGy-cm): 473.83 FINDINGS: Bones/joints: Directly beneath the defect of the skin surface/ulcer, there is subtle periosteal reaction of the anteromedial tibia compatible with reactive changes or very early superficial osteomyelitis. The density of the tibia is preserved. There is no destruction of the deeper bony cortex, endosteal remodeling or destruction in the marrow trabecular pattern. Specifically, this has a very superficial appearance. No additional bony destruction, periosteal reaction, osteopenia or osteomyelitis. Diffuse severe degenerative changes are noted in the knee joint with [id number] appearance, large osteophytes and multiple intra-articular bodies. There is a moderate-sized knee joint effusion and small Nicole's cyst. The knee joint effusion is compatible with the severity of the osteoarthritis. No bony acute fracture or dislocation. Soft tissues: There is interval increasing abundant soft tissue edema and skin thickening of the entire lower leg and visualized hindfoot may reflect cellulitis, lymphedema or venous stasis. There is also a divot or defect of the skin surface of the anteromedial mid to distal 3rd and posterolateral mid to distal 3rd of the leg concerning for soft tissue ulcer without localized fluid collection or abscess. There is some mild induration of the fat/edema of the fascial planes between the muscles of the leg but no intramuscular fluid collection or compartment syndrome. No gas in the soft tissues or muscles. No foreign body. CT/CT lower leg RT wo con* [id number] IMPRESSION: 1. There is interval increasing abundant soft tissue edema and skin thickening of the entire lower leg and visualized hindfoot may reflect cellulitis, lymphedema or venous stasis. There is also a divot or defect of the skin surface of the anteromedial mid to distal 3rd and posterolateral mid to distal 3rd of the leg concerning for soft tissue ulcer without localized fluid collection or abscess. 2. No intramuscular abscess. No compartment syndrome. No gas in the muscles or soft tissues. 3. Directly beneath the defect of the skin surface/ulcer, there is subtle periosteal reaction of the anteromedial tibia compatible with reactive changes or very early superficial osteomyelitis. The density of the tibia is preserved. There is no destruction of the deeper bony cortex, endosteal remodeling or destruction in the marrow trabecular pattern. Specifically, this has a very superficial appearance and may reflect reactive changes to cellulitis. No additional bony destruction osteomyelitis.
--- NOTE | 2024-08-23 17:00 | CTR_ITS ---
PROCEDURE INFORMATION: Exam: CT Right Lower Extremity Without Contrast, Foot Exam date and time: 08/23/2024 5:28 PM Age: 64 years old Clinical indication: Diabetic wounds to RT foot. ; Additional info: Assess for osteomyelitis TECHNIQUE: Imaging protocol: CT of the right lower extremity without contrast was performed. Exam focused on the foot. Radiation optimization: All CT scans at this facility use at least one of these dose optimization techniques: automated exposure control; mA and/or kV adjustment per patient size (includes targeted exams where dose is matched to clinical indication); or iterative reconstruction. COMPARISON: CR XR foot RT min 3V* [id number] 06/02/2022 11:44 AM RADIATION DOSE METRICS: Total DLP (mGy-cm): 147.6 FINDINGS: Bones/joints: No bony destruction or osteomyelitis. No acute fracture or dislocation. Severe degenerative changes 1st MTP joint. There is hallux valgus and metatarsus adductus. Old fracture the anterior process of the calcaneus. Diffuse nire-oh-rzupnszf degenerative changes in the foot and ankle. Large peroneal tubercle of the lateral calcaneus with adjacent bony erosion/divot of the lateral calcaneus compatible with reactive changes to severe chronic peroneal tendinopathy. Soft tissues: There is diffuse skin thickening and subcutaneous edema of the lower leg, ankle and foot may reflect cellulitis, lymphedema or venous stasis. No localized fluid collection or abscess. No gas in the soft tissues. Probable small metallic foreign body under the nail or on skin surface tip of the 2nd toe. Other findings: There is marked enlargement of the peroneus longus and less prominently the peroneus brevis tendons compatible with marked tendinopathy and tenosynovitis. CT/CT foot RT wo con* [id number] IMPRESSION: 1. There is diffuse skin thickening and subcutaneous edema of the lower leg, ankle and foot may reflect cellulitis, lymphedema or venous stasis. No localized fluid collection or abscess. 2. No bony destruction or osteomyelitis. No acute fracture or dislocation. 3. Large peroneal tubercle of the lateral calcaneus with adjacent bony erosion/divot of the lateral calcaneus compatible with reactive changes to severe chronic peroneal tendinopathy. 4. There is marked enlargement of the peroneus longus and less prominently the peroneus brevis tendons compatible with marked tendinopathy and tenosynovitis.
--- NOTE | 2024-08-23 17:00 | CTR_ITS ---
PROCEDURE INFORMATION: Exam: CT Left Lower Extremity Without Contrast, Foot Exam date and time: 08/23/2024 5:25 PM Age: 64 years old Clinical indication: Prior surgery; Surgery date: 6+ months; Open diabetic wound to site of digit amputation; Additional info: Assess for osteomyelitis, pus draining at site of old amputation TECHNIQUE: Imaging protocol: CT of the left lower extremity without contrast was performed. Exam focused on the foot. Radiation optimization: All CT scans at this facility use at least one of these dose optimization techniques: automated exposure control; mA and/or kV adjustment per patient size (includes targeted exams where dose is matched to clinical indication); or iterative reconstruction. COMPARISON: CR XR foot LT 2V [id number] 06/13/2024 3:50 PM RADIATION DOSE METRICS: Total DLP (mGy-cm): 147.56 FINDINGS: Bones/joints: Patient is status post 2nd ray amputation at the 2nd MTP joint. Probable phlegmon and small fluid collection concerning for abscess is noted at the deep at aspect of the phlegmon/ulcer contiguous with the 2nd metatarsal head measuring 1.7 x 1.0 x 0.9 cm concerning for abscess as seen on series 8, image 102 and series 9, image 31. There is destruction of the 2nd metatarsal head with irregular erosions and bone fragments/tiny calcifications in the soft tissues extending along the phlegmon/track towards the skin surface and ulcer. Findings are compatible with osteomyelitis involving the at least the distal 1.5 cm 2nd metatarsal. No osteomyelitis, bony destruction, fracture or dislocation in the remainder of the foot or ankle. Severe degenerative changes to the 1st MTP joint are noted with subchondral cysts and deformity at the base of the 1st proximal phalanx suspected to be old fracture with intra-articular bodies in the 1st MTP joint and multi partite versus old fractured sesamoid bones. Moderate degenerative changes in the midfoot. Old avulsion fracture of the lateral calcaneus. Lisfranc joint alignment is intact. Soft tissues: There is diffuse skin thickening and soft tissue edema in the ankle and foot. There is more dense soft tissue density/induration of the subcutaneous fat and soft tissues distal foot at the amputation site just distal to the 2nd metatarsal head where there is a skin defect/open wound compatible with cellulitis. CT/CT foot LT wo con* [id number] IMPRESSION: 1. Osteomyelitis distal 1.5 cm 2nd metatarsal. No additional acute bony abnormality. 2. Soft tissue ulcer cellulitis and phlegmon distal tip is 2nd metatarsal head/amputation site with small fluid collection contiguous with the 2nd metatarsal head concerning for abscess.
--- NOTE | 2024-08-23 17:18 | P.HP_ITS ---
Providers/Chief Complaint 2 Admitting Physician: Adriana Andres MD Primary Care Provider: Itz Pierson MD Chief Complaint: hector open legs wounds History of Present Illness Ely Hare is a 64 year old male with Hx of HTN, HLD, RA, OA, cardiomyopathy with last known ejection fraction of 15% who is presenting to the hospital today with chief complaints of worsening lower extremity wounds. He states that he visited his PCP for a bandage change today, however he was sent to the ER because his wounds looked to be purulent, foul-smelling. It appears he has not been compliant with medications. He states that his current wounds developed about 3 months ago. He thinks his wounds are no worse than when the first started, however they are noted to be draining pus over the right chowdhury wound and also over the left foot near the site of an old gangrene. He appears to have poor circulation bilaterally. He has been awaiting a LifeVest. He has a pacemaker placed in June 2024. Additionally had a second toe amputation. He was admitted to the hospital in June 2024 for infected wounds and was discharged with 2 weeks of IV antibiotics including ertapenem 1 g daily and oral linezolid. Lower extremity BLAINE on 04/24/2024 showed normal resting ABIs. Venous duplex is negative today for DVT. He is noted to have anasarca Review of Systems 2 General: Reports: 10 or more systems reviewed and unremarkable except in HPI and below Const: Denies: fever(s), chills or body aches Eyes: Denies: change in vision, blurry vision or photophobia ENMT: Reports: hoarseness; Denies: throat pain, enlarged tonsils, odynophagia or nasal congestion Card: Denies: chest pain, palpitations, irregular heart rhythm, edema, swelling of feet/ankles, lightheadedness, pre-syncope, dyspnea on exertion or orthopnea Resp: Denies: dyspnea, productive cough, non-productive cough, wheezing, stridor, pain on inspiration, change in phlegm color, hemoptysis or chest congestion GI: Denies: abdominal pain, nausea, vomiting, hematemesis, coffee ground emesis, dysphagia, heartburn, diarrhea, constipation, GI cramping, change in stool character, hematochezia or melena : Denies: flank pain, dysuria, urinary frequency, urinary urgency, urinary hesitancy or hematuria Musc: Denies: neck pain, back pain, extremity pain, joint swelling, joint warmth or deformity Neuro: Denies: headache(s), numbness in extremities, weakness in extremities, sensory changes, difficulty walking, frequent falls, dizziness, vertigo, behavioral changes, Slurred speech present or seizure-like activity Psych: Denies: anxiety, depression, suicidal ideation or homicidal ideation Endo: Denies: polyuria, polydipsia, tired all the time, cold intolerance or hot flashes Robert/Lymph: Denies: easy bruising or easy bleeding Medications/Allergies Home Medications ?Medication ?Instructions ?Recorded ?Confirmed ?Last Taken ?Type aspirin 81 mg tablet,delayed 81 mg PO DAILY #30 tabs 0 06/17/24 08/23/24 06/23/24 Rx release sodium hypochlorite 0.125 % 1 applic topical DAILY #47 3 mL 07/09/24 08/23/24 Unknown Rx solution (Dakin's Solution) carvedilol 6.25 mg tablet 6.25 mg PO BID #60 tabs 04/0 01/3008/23/24 Unknown Rx dapagliflozin propanediol 10 mg 10 mg PO DAILY #30 tab s 08/14/24 08/23/24 Unknown Rx tablet (Farxiga) furosemide 40 mg tablet 40 mg PO DAILY@0800 #30 tabs 08/14/24 08/23/24 Unknown Rx sacubitril 24 mg-valsartan 26 mg 1 tab PO BID #30 tabs 08/14/24 08/23/24 Unknown Rx tablet (Entresto) Allergies Allergy/AdvReac Type Severity Reaction Status Date / Time No Known Allergies Allergy Verified 08/23/24 11:26 PFSH Acute 2 PFSH: Medical History Chronic wound of extremity HFrEF (heart failure with reduced ejection fraction) Hypertensive urgency BMI 37.0-37.9, adult Lower extremity edema Third degree heart block Status post pacemaker placement, 2024 [facility] Congestive heart failure Gout Immunization counseling Seropositive rheumatoid arthritis of multiple sites Hypertension Surgical History History of hernia repair Family History Mother Cancer breast Father Cancer non hodgkins lymphoma Other CAD (coronary artery disease) Diabetes Family history of premature coronary artery disease Denies family history of Rheumatoid arthritis Lupus Hyperlipidemia Chronic kidney disease (CKD) Lung disease Hypertension Stroke Social History Smoking and tobacco/nicotine status: never used tobacco/nicotine Alcohol intake: never Substance/Drug Use: never Lives independently: Yes Marital status: Single Number of children: 1 Current occupational status: retired Special jennifer needs: No Agree to transfusion: Yes Vitals/I&O/Wt Last Vital Signs Temp 98.1 F 08/23/24 12:57 Pulse 91 08/23/24 15:18 Resp 18 08/23/24 12:57 BP 131/98 08/23/24 15:18 Pulse Ox 92 08/23/24 15:18 O2 Del Method Room Air 08/23/24 15:18 Physical Exam 2 Narrative: General: No acute distress, AO x3 HEENT: PERRLA, pupils bilaterally equal and reactive, pallors not present Chest: Normal vesicular breath sounds, no added sounds, equal good air entry bilaterally CVS: S1-S2 regular, no murmurs, no tachycardia, no gallops, no rubs Abdomen: Soft, nontender, no organomegaly, bowel sounds present Neuro: No focal deficits, no facial deformity, AO x3, power 5/5 in all limbs EXT: generalized anasarca Data 08/23/24 12:37 08/23/24 12:37 Micro: Microbiology 08/23/24 12:37 Blood Culture - Preliminary Blood SPECIMEN COLLECTED 08/23/24 12:37 Blood Culture - Preliminary Blood SPECIMEN COLLECTED A&P Assessment and plan (1) Bilateral cellulitis of lower leg: (2) Acute exacerbation of CHF (congestive heart failure): Qualifiers: Heart failure type: unspecified Qualified Code(s): I50.9 - Heart failure, unspecified (3) Type 2 diabetes mellitus: Qualifiers: Diabetes mellitus complication detail: with peripheral angiopathy without gangrene Diabetes mellitus complication status: with circulatory complication Diabetes mellitus care home insulin use: without intermediate accountant use Q ualified Code(s): E11.51 - Type 2 diabetes mellitus with diabetic peripheral angiopathy without gangrene (4) Bilateral leg ulcer: Qualifiers: Non-pressure ulcer stage: unspecified non-pressure ulcer stage Q ualified Code(s): L97.919 - Non-pressure chronic ulcer of unspecified part of right lower leg with unspecified severity; L97.929 - Non-pressure chronic ulcer of unspecified part of left lower leg with unspecified severity (5) Red eye: Plan 64-year-old male currently admitted with chief complaints of worsening lower extremity wounds Patient has open wounds of the right tibial chowdhury, noted to have puslike drainage. Additional wounds over noted over the left and right foot. Over the left foot there is an area of past-pointing and drainage in the second metatarsal space. Obtain CT evaluation of bilateral lower extremities and feet to assess for underlying osteomyelitis. Blood cultures taken in the emergency room. Start piperacillin/tazobactam and vancomycin empirically. Based on CT results, will likely need podiatry and general surgery assessments. Of note surgical service is not available at the hospital until August 25, 2024. Rishabh;park patient is not showing signs of sepsis, will start iv abx and monitor closely. lasix 40mg iv q12h for acute on chronic CHF exacerbation monitor urine output and creatinine closely PDMP PDMP Reviewed: Not Reviewed Attestations 2 Medical Necessity Statement*: > 2 midnight admission is anticipated Coding Level of Care Code Acute Code for Chg Fwd Diagnoses Bilateral cellulitis of lower leg L03.116; L03.115 Acute exacerbation of CHF (congestive heart failure) I50.9 Heart failure type: unspecified Type 2 diabetes mellitus with diabetic peripheral angiopathy without gangrene, without long-term current use of insulin E11.51 Diabetes mellitus complication detail: with peripheral angiopathy without gangrene Diabetes mellitus complication status: with circulatory complication Diabetes mellitus intermediate accountant insulin use: without care home use Ulcers of both lower extremities, unspecified ulcer stage L97.919; L97.929 Non-pressure ulcer stage: unspecified non-pressure ulcer stage Red eye H57.89
[2024-08-23 17:39] LABS: Estmated Average Glucose 114; Hemoglobin A1C 5.6 % (4.0-6.0)
--- NOTE | 2024-08-23 17:52 | PHA.VACGOAL ---
Vancomycin Goal - Goal Vancomycin Goal:: 10-15 mg/L Vancomycin Indication:: SSTI - Therapy Current therapy:: Pip/Tazo Day of therpy:: Day 1 of [] . Actual body weight (kg): 250 lb - Data Labs: WBC 9.22 10^3/uL (3.29-11.43) 08/23/24 12:37 RBC 4.22 10^6/uL (3.85-5.65) 08/23/24 12:37 Hgb 11.10 g/dL (11.27-16.99) L 08/23/24 12:37 Hct 38.9 % (37-53) 08/23/24 12:37 MCV 92.2 fl (82-101) 08/23/24 12:37 MCH 26.3 pg (27-33) L 08/23/24 12:37 MCHC 28.5 g/dL (30-55) L 08/23/24 12:37 RDW 17.2 % (12.1-15.1) H 08/23/24 12:37 Sodium 144 mmol/L (136-145) 08/23/24 12:37 Potassium 3.8 mmol/L (3.5-5.1) 08/23/24 12:37 Chloride 110 mmol/L (98-107) H 08/23/24 12:37 Carbon Dioxide 23 mmol/L (22-29) 08/23/24 12:37 Anion Gap 14.8 (5-19) 08/23/24 12:37 BUN 22 mg/dL (8-23) 08/23/24 12:37 Creatinine 1.5 mg/dL (0.7-1.2) H 08/23/24 12:37 GFR Calculation 47.0 mL/min (90-130) L 08/23/24 12:37 Last dialysis session:: N/A Treatment plan:: new consult Regimen:: 1000 MG DOSE GIVEN IN ER. WILL START A MAINTENANCE DOSE OF 1750 MG Q12H PER DOSING PROTOCOL Follow up:: WILL CONTINUE TO MONITOR AND FOLLOW UP DAILY
[2024-08-23 18:06] LABS: Glucose Point of Care 38 mg/dL (70-110)
[2024-08-23] MEDS: heparin 5,000 unit/mL INJ 1 mL 5000 UNIT SUBCUT (18:13)
[2024-08-23] MEDS: piperacillin-tazobactam 3.375 GM in sodium chloride 0.9% (plus) 50 ML IV (18:14)
[2024-08-23 18:32] LABS: Glucose Point of Care 77 mg/dL (70-110)
[2024-08-23 19:06] LABS: Lactic Acid level (Lactate) 2.1 mmol/L (0.5-2.2)
[2024-08-23 20:00] VITALS: BP 113/79; PULSE 79; RESP 19; TEMP 36.4; O2SAT 90
--- NOTE | 2024-08-23 20:15 | PC.NURSE ---
Report was called to Keely JOHNSON on Med-Surg. All questions and concerns were addressed at time of report. Patient was transferred with all paperwork and belongings.
[2024-08-23 21:21] LABS: Glucose Point of Care 158 mg/dL (70-110)
[2024-08-24] VITALS (34 sets, daily range): BP systolic 98–156; BP diastolic 63–102; PULSE 68–99; RESP 0–19; TEMP 36.3–36.9; O2SAT 88–98
[2024-08-24] MEDS: vancomycin 1,750 MG/350 ML PIGGYBACK 175 MG IV (00:39)
[2024-08-24] MEDS: piperacillin-tazobactam 3.375 GM in sodium chloride 0.9% (plus) 50 ML IV ×2 (02:39→10:42)
--- NOTE | 2024-08-24 04:20 | PC.NURSE ---
Patient had not voided my entire shift so I had him attempt to void. He was unable to go. He has significant swelling/edema to amanda-area and to his entire body. He said he has been having trouble voiding at home as well. Bladder scan shows greater than [address] Ortiz notified. Marsh ordered.
[2024-08-24 05:30] LABS: Basophils # 0.1 10^3/uL (0.0-0.1); Basophils % 1.1 %; Hematocrit 37.1 % (37-53); Lymphocytes # 0.8 10^3/uL (0.8-4.8); Lymphocytes % 8.2 %; Mean Corpuscular HGB Conc 27.8 g/dL (30-55); Mean Corpuscular Hemoglobin 26.6 pg (27-33); Mean Corpuscular Volume 95.9 fl (82-101); Mean Platelet Volume 10.1 fL (7.4-10.4); Monocytes # 1.2 10^3/uL (0.2-0.9); Monocytes % 11.5 %; Neutrophils % 78.9 %; Nucleated Red Blood Cells % 0 %; Platelet Count 314 10^3/cmm (157-399); Red Blood Count 3.87 10^6/uL (3.85-5.65); Red Cell Distribution Width 17.4 % (12.1-15.1); White Blood Count 10.13 10^3/uL (3.29-11.43)
[2024-08-24 06:09] LABS: Alanine Aminotransferase 13 U/L (0-41); Albumin Level 3.3 g/dL (3.5-5.2); Alkaline Phosphatase 176 U/L (40-130); Anion Gap 12.5 (5-19); Aspartate Amino Transferase 28 U/L (0-40); Blood Urea Nitrogen 24 mg/dL (8-23); Calcium 8.5 mg/dL (8.5-10.5); Carbon Dioxide 26 mmol/L (22-29); Chloride 110 mmol/L (98-107); Creatinine Clr Calc Pharmacy 58.6245; Globulin 2.7 g/dL (1.3-4.6); Glomerular Filtration Rate 43.6 mL/min (90-130); Glucose 113 mg/dL (65-115); Osmolality Calculated 303 mOsm/kg (285-295); Potassium 4.5 mmol/L (3.5-5.1); Sodium 144 mmol/L (136-145); Total Bilirubin 0.9 mg/dL (0.15-1.2)
[2024-08-24 06:39] LABS: Glucose Point of Care 109 mg/dL (70-110)
[2024-08-24] MEDS: pantoprazole DR 40 mg Tablet PO (09:34)
[2024-08-24] MEDS: FUROsemide 10 mg/mL SDV 4mL 40 MG IVP (09:35)
[2024-08-24] MEDS: heparin 5,000 unit/mL INJ 1 mL 5000 UNIT SUBCUT ×2 (09:36→21:02)
[2024-08-24 11:03] LABS: Glucose Point of Care 298 mg/dL (70-110)
[2024-08-24] MEDS: collagenase oint 30 gm 1 APPLIC TOPICAL (11:51)
--- NOTE | 2024-08-24 11:51 | PC.CHAP ---
Pastoral Care Encounter/Spiritual Assessment Type of Contact [] Declined adjunct english instructor visit [] Patient/Family/Request visit [] Outpatient visit [] Follow-up visit [] Physician referral [] Code/Alert [x] Routine visit [] Staff referral [] Actively dying [] Patient sleeping [] Family support [] [] Out of room [] Palliative care [] [] Receiving care in room [] Pre-surgical visit [] Trauma [] Long length of stay [] ICU visit [] Other: Relational/Emotional Strength [] Patient feels connected with others/family/visitors/staff [x] Distress [] Loneliness/isolation [] Abandonment Spirituality of Patient [] Person of Mar [] Attends Jain of their Mar [x] Believes in Prayer [] Reads Bible or Pentecostalism materials [] There are Spiritual issues to be addressed Senior Inspector Interventions [x] Prayer [] Active listening [] Non-anxious presence [] Spiritual/emotional support [] Crisis/trauma care [] Spiritual counseling [] Bereavement support [] Provided bereavement packet [] Provided Bible/devotional materials [] Provided toy/stuffed animal, coloring book to patient or family member [] Provided Communion [] Anointing/[place] [] Salvation [] Completed spiritual assessment [] Other: Impact on Illness or Injury [] Angry [] Fearful [] Anxious [] Often cries [] Exhaustion [] Unable to work [] Unable to attend zoroastrianism [] Unable to walk/stand [] Unable to read [] Unable to drive [] Unable to eat/drink [] Unable to sleep [] Unable to be with family [] Patient intubated [] Other: Summary 20 min Time spent with patient
[2024-08-24] MEDS: insulin lispro 100 unit/1 mL SUBCUT (11:52)
--- NOTE | 2024-08-24 12:07 | P.CONIM_ITS ---
Providers/Reason For Consult 2 Consulting Physician/Specialty*: Ankit Mercedes.P.M./podiatry Reason for Consult*: Bilateral venous stasis ulcerations, left foot second metatarsal osteomyelitis with abscess formation Attending Physician: Adriana Andres MD Primary Care Provider: Itz Pierson MD History of Present Illness History of Present Illness Ely Hare is a 64 year old male who is very somnolent at bedside. Difficult to obtain history from patient due to somnolence. Most of history obtained through chart review. Patient has an extensive history of bilateral lower extremity edema with chronic ulcerations. Most recently underwent bilateral lower extremity venous ulcer debridement during past hospital stay. Patient underwent left leg ulcer debridement on 06/12/2024 with subsequent debridement of right leg ulcers on 06/13/2024. This was due to patient's poor cardiac history. Patient also has history of left foot second toe amputation. This was performed May 2024 at [facility] during same admission for pacemaker implantation. Patient has had worsening wound at amputation site left foot. CT scan obtained during admission revealed osteomyelitis of second metatarsal head with abscess formation and phlegmon. Podiatry was consulted to evaluate foot and legs to determine if surgical intervention is warranted Review of Systems 2 General: Reports: 10 or more systems reviewed and unremarkable except in HPI and below Const: Denies: fever(s), chills, body aches or change in appetite Eyes: Denies: change in vision or blurry vision Card: Denies: chest pain, palpitations or irregular heart rhythm Resp: Denies: dyspnea GI: Denies: abdominal pain, nausea, vomiting or diarrhea Musc: Reports: joint stiffness Skin/Breast: Reports: non-healing lesions and lesions Neuro: Reports: numbness in extremities Medications/Allergies Home Medications ?Medication ?Instructions ?Recorded ?Confirmed ?Last Taken ?Type aspirin 81 mg tablet,delayed 81 mg PO DAILY #30 tabs 0 06/17/24 08/23/24 06/23/24 Rx release sodium hypochlorite 0.125 % 1 applic topical DAILY #47 3 mL 07/09/24 08/23/24 Unknown Rx solution (Dakin's Solution) carvedilol 6.25 mg tablet 6.25 mg PO BID #60 tabs 04/0 01/3008/23/24 Unknown Rx dapagliflozin propanediol 10 mg 10 mg PO DAILY #30 tab s 08/14/24 08/23/24 Unknown Rx tablet (Farxiga) furosemide 40 mg tablet 40 mg PO DAILY@0800 #30 tabs 08/14/24 08/23/24 Unknown Rx sacubitril 24 mg-valsartan 26 mg 1 tab PO BID #30 tabs 08/14/24 08/23/24 Unknown Rx tablet (Entresto) Allergies Allergy/AdvReac Type Severity Reaction Status Date / Time No Known Allergies Allergy Verified 08/23/24 11:26 Current Medications Generic Name Dose Route Start Last Admin Trade Name Freq PRN Reason Stop Dose Admin Collagenase 1 applic 08/24/24 11:45 08/24/24 11:51 Collagenase Oint 30 Gm TOPICAL 1 applic DAILY AMBER Administration Furosemide 40 mg 08/24/24 09:00 08/24/24 09:35 Furosemide 10 Mg/Ml Sdv 4ml IVP 40 mg BID AMBER Administration Heparin Sodium (Porcine) 5,000 unit 08/24/24 09:00 08/24/24 09:36 Heparin 5,000 Unit/Ml Inj 1 Ml SUBCUT 5,000 unit Q12H AMBER Administration Piperacillin Sod/Tazobactam 50 mls @ 12.5 mls/hr 08/23/24 19:00 08/24/24 10:42 Sod 3.375 gm/ Sodium Chloride IV 12.5 mls/hr Q8H AMBER Administration Insulin Human Lispro 0 unit 08/23/24 18:00 08/24/24 11:52 Insulin Lispro 100 Unit/1 Ml SUBCUT 10 unit WM&BEDTIME AMBER Administration Protocol Pantoprazole Sodium 40 mg 08/24/24 09:00 08/24/24 09:[address] 40 Mg Tablet PO 40 mg DAILY AMBER Administration PFSH Acute 2 PFSH: Medical History Chronic wound of extremity HFrEF (heart failure with reduced ejection fraction) Hypertensive urgency BMI 37.0-37.9, adult Lower extremity edema Third degree heart block Status post pacemaker placement, 2024 [facility] Congestive heart failure Gout Immunization counseling Seropositive rheumatoid arthritis of multiple sites Hypertension Surgical History History of hernia repair Family History Mother Cancer breast Father Cancer non hodgkins lymphoma Other CAD (coronary artery disease) Diabetes Family history of premature coronary artery disease Denies family history of Rheumatoid arthritis Lupus Hyperlipidemia Chronic kidney disease (CKD) Lung disease Hypertension Stroke Social History Smoking and tobacco/nicotine status: never used tobacco/nicotine Alcohol intake: never Substance/Drug Use: never Lives independently: Yes Marital status: Single Number of children: 1 Current occupational status: retired Special jennifer needs: No Agree to transfusion: Yes Vitals/I&O/Wt Last Vital Signs Temp 97.4 F L 08/24/24 11:39 Pulse 91 08/24/24 11:39 Resp 17 08/24/24 11:39 BP 138/81 08/24/24 11:39 Pulse Ox 92 08/24/24 11:39 O2 Del Method Nasal Cannula 08/24/24 11:39 08/23/24 08/24/24 08/24/24 22:59 06:59 14:59 Intake Total 50 / 50 1200 / 1250 480 / 480 Output Total 225 / 225 Balance 50 / 50 975 / 1025 480 / 480 Weight last 48 hrs Weight 263 lb 3.2 oz Weight 262 lb 8 oz Weight 250 lb Physical Exam 2 Narrative: BELOW IS A FOCUSED LOWER EXTREMITY EXAM GENERAL: A&O x 3 VASCULAR: DP/PT pulses palpable 2/4 with CFT intact, <3seconds to distal digits DERMATOLOGICAL: Multiple full-thickness ulcerations bilateral lower legs. Left foot second digit amputation wound with active serous drainage positive probe to bone. Largest ulceration to anterior right leg measuring 13.7 x 4.5 x 0.5 cm. Mild surrounding erythema. Mixed fibrogranular wound base. MUSCULOSKELETAL: Pain to palpation of periwound area bilateral legs. Left foot second digit amputation NEUROLOGICAL: Neurological sensation to the affected foot and ankle is present through L4-S1 dermatomes with no hyper/hypoesthesias, negative Tinel or Valleix's sign Urinary Catheter Management: Marsh: Cath Placed During This Visit: yes Reason for Continuing Indwelling Catheter: Acute Urinary Retention or Obstruction Urinary Catheter Date of Insertion: 08/24/24 Urinary Catheter Time of Insertion: 04:54 Data 08/24/24 05:14 08/24/24 05:14 Micro: Microbiology 08/23/24 12:37 Blood Culture - Preliminary Blood SPECIMEN COLLECTED 08/23/24 12:37 Blood Culture - Preliminary Blood SPECIMEN COLLECTED A&P Assessment and plan (1) Osteomyelitis: (2) Ulcer of left foot with fat layer exposed: (3) Abscess of left foot: (4) Venous stasis ulcer: Plan - Left foot abscess, second metatarsal osteomyelitis. Bilateral lower extremity venous stasis ulcerations -Labs and vitals reviewed -Cultures: Wound cultures from 07/01/2024 grew Stenotrophomonas maltophilia and A chromobacter xylosoxidans -Abx Vanco/Zosyn -Diet: Okay for diet from podiatry standpoint -Plan for surgical intervention on 08/26/2024. This will be in the form of left foot second metatarsal incision bone cortex with removal of nonviable tissue and bone as well as venous stasis ulceration debridement. We will need to obtain consent from next of kin if patient remains somnolent and noncommunicative at bedside. During previous admission patient's son was contacted prior to procedure for consent. Also, due to extensive cardiac history we will likely need to proceed with popliteal block from anesthesia only with repeat surgical debridement of contralateral limb in the following days. -Pain Mgmt: Per primary -Weight bearing: As tolerated -Dressings: Central collagenase applied to right leg venous stasis ulcerations. Dry sterile dressing applied to remaining wounds -Continue current Abx therapy until ID and Sensitivity results -Trend labs -Discharge plan: To be determined -Podiatry will continue to round on patient daily and provide recommendations PDMP PDMP Reviewed: Not Reviewed Coding Level of Care Code Acute Code for [facility] Fwd Diagnoses Osteomyelitis M86.9 Ulcer of left foot with fat layer exposed L97.522 Abscess of left foot L02.612 Venous stasis ulcer I83.009; L97.909
[2024-08-24 12:11] LABS: Alveolar-Arterial Oxygen Gradi 6.6 mmHg (5-10); Arterial Blood Gas Hematocrit 34.3 % (42-52); Base Excess ABG -1.4 mmol/L (-2.0-2.0); Blood Gas Allen Test Pos; Blood Gas Operator Identificat CAK; Blood Gas Sample Site Radial, left; Blood Gas Sample Type Arterial; Carboxyhemoglobin 1.7 %THgb (0.4-20.1); HCO3 ABG 27.3 mmol/L (22-26); HGB O2 Sat 94.7 % (95-100); Ionized Calcium Level - ABG 1.3 mmol/L (1.1-1.4); Methemoglobin 0.9 % (0.4-1.5); Oxygen Device NC; Oxygen Saturation ABG 97.3; PO2 ABG 97.6 mmHg (80.0-100.0); PO2 FiO2 Ratio Arterial Blood 305; Potassium Level - ABG 4.1 mmol/L (3.5-5.0); Total Hemoglobin 11.2 g/dL (14-18)
[2024-08-24 12:13] LABS: ABG PCO2 65.9 mmHg (35-45)
[2024-08-24 13:32] LABS: ABG PH Result 7.23 (7.35-7.45)
--- NOTE | 2024-08-24 13:53 | PM.PN ---
Subjective Subjective: Patient was noted to be lethargic on rounds this afternoon. He is very somnolent. Difficult to awaken. Stat ABG performed showed hypercapnic respiratory acidosis. Patient has been placed on a BiPAP. He had a 6 beat run of V. tach today. Medications: Reviewed: Yes Vitals/I&O/Wt Last Vital Signs Temp 97.4 F L 08/24/24 11:39 Pulse 77 08/24/24 13:27 Resp 17 08/24/24 11:39 BP 138/81 08/24/24 11:39 Pulse Ox 98 08/24/24 13:27 O2 Del Method Nasal Cannula 08/24/24 11:39 FiO2 30 08/24/24 13:27 08/23/24 08/24/24 08/24/24 22:59 06:59 14:59 Intake Total 50 / 50 1200 / 1250 480 / 480 Output Total 225 / 225 Balance 50 / 50 975 / 1025 480 / 480 Weight last 48 hrs Weight 119.386 kg Weight 119.068 kg Weight 113.398 kg Physical Exam Narrative: General: No acute distress, AO x3 HEENT: PERRLA, pupils bilaterally equal and reactive, pallors not present Chest: Normal vesicular breath sounds, no added sounds, equal good air entry bilaterally CVS: S1-S2 regular, no murmurs, no tachycardia, no gallops, no rubs Abdomen: Soft, nontender, no organomegaly, bowel sounds present Neuro: No focal deficits, no facial deformity, AO x3, power 5/5 in all limbs Ext: B/L LE edema and wound unchanged Urinary Catheter Management: Marsh: Cath Placed During This Visit: yes Reason for Continuing Indwelling Catheter: Acute Urinary Retention or Obstruction Urinary Catheter Date of Insertion: 08/24/24 Urinary Catheter Time of Insertion: 04:54 Data 08/24/24 05:14 08/24/24 05:14 Micro: Microbiology 08/23/24 12:37 Blood Culture - Preliminary Blood NEGATIVE TO DATE 08/23/24 12:37 Blood Culture - Preliminary Blood NEGATIVE TO DATE Other data: CT/CT lower leg RT wo con* [id number] IMPRESSION: 1. There is interval increasing abundant soft tissue edema and skin thickening of the entire lower leg and visualized hindfoot may reflect cellulitis, lymphedema or venous stasis. There is also a divot or defect of the skin surface of the anteromedial mid to distal 3rd and posterolateral mid to distal 3rd of the leg concerning for soft tissue ulcer without localized fluid collection or abscess. 2. No intramuscular abscess. No compartment syndrome. No gas in the muscles or soft tissues. 3. Directly beneath the defect of the skin surface/ulcer, there is subtle periosteal reaction of the anteromedial tibia compatible with reactive changes or very early superficial osteomyelitis. The density of the tibia is preserved. There is no destruction of the deeper bony cortex, endosteal remodeling or destruction in the marrow trabecular pattern. Specifically, this has a very superficial appearance and may reflect reactive changes to cellulitis. No additional bony destruction osteomyelitis. CT/CT foot LT wo con* [id number] IMPRESSION: 1. Osteomyelitis distal 1.5 cm 2nd metatarsal. No additional acute bony abnormality. 2. Soft tissue ulcer cellulitis and phlegmon distal tip is 2nd metatarsal head/amputation site with small fluid collection contiguous with the 2nd metatarsal head concerning for abscess. CT/CT foot RT wo con* [id number] IMPRESSION: 1. There is diffuse skin thickening and subcutaneous edema of the lower leg, ankle and foot may reflect cellulitis, lymphedema or venous stasis. No localized fluid collection or abscess. 2. No bony destruction or osteomyelitis. No acute fracture or dislocation. 3. Large peroneal tubercle of the lateral calcaneus with adjacent bony erosion/divot of the lateral calcaneus compatible with reactive changes to severe chronic peroneal tendinopathy. 4. There is marked enlargement of the peroneus longus and less prominently the peroneus brevis tendons compatible with marked tendinopathy and tenosynovitis. CONCLUSIONS No DVT bilateral lower extremities. Arterial blood gas : 08/24/24 12:00 ABG pH 7.23 L ABG pCO2 65.9 H* ABG pO2 97.6 ABG HCO3 27.3 H ABG O2 Saturation 97.3 ABG Base Excess -1.4 A&P Assessment and plan (1) Bilateral cellulitis of lower leg: (2) Acute exacerbation of CHF (congestive heart failure): Qualifiers: Heart failure type: unspecified Qualified Code(s): I50.9 - Heart failure, unspecified (3) Type 2 diabetes mellitus: Qualifiers: Diabetes mellitus complication detail: with peripheral angiopathy without gangrene Diabetes mellitus complication status: with circulatory complication Diabetes mellitus terminal operations manager insulin use: without terminal operations manager use Qualified Code(s): E11.51 - Type 2 diabetes mellitus with diabetic peripheral angiopathy without gangrene (4) Bilateral leg ulcer: Qualifiers: Non-pressure ulcer stage: unspecified non-pressure ulcer stage Qualified Code(s): L97.919 - Non-pressure chronic ulcer of unspecified part of right lower leg with unspecified severity; L97.929 - Non-pressure chronic ulcer of unspecified part of left lower leg with unspecified severity (5) Red eye: Plan 64-year-old male currently admitted with chief complaints of worsening lower extremity wounds Patient has open wounds of the right tibial chowdhury, noted to have puslike drainage. Additional wounds over noted over the left and right foot. Over the left foot there is an area of past-pointing and drainage in the second metatarsal space. Obtain CT evaluation of bilateral lower extremities and feet to assess for underlying osteomyelitis. Blood cultures taken in the emergency room. Start piperacillin/tazobactam and vancomycin empirically. Based on CT results, will likely need podiatry and general surgery assessments. Of note surgical service is not available at the hospital until August 25, 2024. Rishabh;park patient is not showing signs of sepsis, will start iv abx and monitor closely. lasix 40mg iv q12h for acute on chronic CHF exacerbation monitor urine output and creatinine closely 08/24/24 Patient noted to be in hypercapneic respiratory acidosis. Placed on Bipap, serial ABG to be checked. CT findings as above with left metatarsal osteomyelitis and abscess. Right foot tenosynovitis cellulitis and open wound. Podiatry consulted, appreciate recommendations. Plan for OR intervention early next week. May need general anesthesia. Cardiology consult for pre op cardiac risk assessment. His current significant comorbidities include CHF exacerbation, nonischemic cardiomyopathy with ejection fraction of 15%. Currently has defibrillator in place. Patient had 6 beat run of V. tach today. Resume home dose of carvedilol 6.25 mg p.o. twice daily. Continue insulin sliding scale. Priro cx data reviewed, Achromobacter has variable susceptibility most recent isolate noted sensitivity to piperacillin/tazobactam, however prior to isolates reported resistant. Will switch Zosyn to meropenem 1 g IV every 8 hours. Continue vancomycin. To obtain cultures with OR debridement. Anticipate patient will need 4 to 6 weeks of IV antibiotics for osteomyelitis. Will plan on PICC line placement once blood cultures are negative for 48 hours. PDMP PDMP Reviewed: Not Reviewed Attestations Medical Necessity Statement*: Continued admission for IV antibiotics, hypercapnic respiratory failure today, need for noninvasive ventilation. Serial recheck of ABGs, Coding Level of Care Code Acute Code for Chg Fwd High MDM includes number and complexity of problems actively addressed during encounter, amount and/or complexity of data reviewed/ordered and described risk of complication, morbidity or mortality of management as documented Diagnoses Bilateral cellulitis of lower leg L03.116; L03.115 Acute exacerbation of CHF (congestive heart failure) I50.9 Heart failure type: unspecified Type 2 diabetes mellitus with diabetic peripheral angiopathy without gangrene, without long-term current use of insulin E11.51 Diabetes mellitus complication detail: with peripheral angiopathy without gangrene Diabetes mellitus complication status: with circulatory complication Diabetes mellitus intermediate insulin use: without terminal operations manager use Ulcers of both lower extremities, unspecified ulcer stage L97.919; L97.929 Non-pressure ulcer stage: unspecified non-pressure ulcer stage Red eye H57.89
--- NOTE | 2024-08-24 14:06 | XRR_ITS ---
PROCEDURE INFORMATION: Exam: XR Chest Exam date and time: 08/24/2024 3:57 PM Age: 64 years old Clinical indication: Other: Pulmonary edema; Prior surgery; Surgery date: 6+ months; Surgery type: Pacemaker; Additional info: Pulm edema TECHNIQUE: Imaging protocol: Radiologic exam of the chest. Views: 1 view. COMPARISON: CR XR chest 1V portable [id number] 06/12/2024 7:56 AM FINDINGS: Tubes, catheters and devices: Dual lead pacemaker on the left, as noted with prior exam. Overlying monitor leads. Lungs: No infiltrate or consolidation. No significant pulmonary vascular congestion/edema. Interval resolution right basilar atelectasis with prior exam. Pleural spaces: No pleural effusion. No pneumothorax. Heart/Mediastinum: Cardiomegaly, as noted with prior exam. Diaphragm: Mild chronic eventration/elevation right hemidiaphragm with prior exam. Bones/joints: Visualized osseous structures show no acute abnormality. XR/XR chest 1V portable [id number] IMPRESSION: Left-sided pacemaker and cardiomegaly. No acute findings.
[2024-08-24] MEDS: meropenem 1,000 mg SDV 1000 MG IVP ×2 (14:28→21:02)
[2024-08-24 15:31] LABS: ABG PCO2 56.1 mmHg (35-45); ABG PH Result 7.27 (7.35-7.45); Base Excess ABG -1.5 mmol/L (-2.0-2.0); Blood Gas Allen Test Pos; Blood Gas Operator Identificat CAK; Blood Gas Sample Site Radial, left; Blood Gas Sample Type Arterial; HCO3 ABG 25.9 mmol/L (22-26); Oxygen Device BIPAP; PO2 FiO2 Ratio Arterial Blood 373
--- NOTE | 2024-08-24 16:38 | PC.NURSE ---
Patient arrived to ICU 5 at approximately 1630 via bed from medical surgical floor. Patient compliant with Bipap at this time. Patient reports 9/10 bilateral leg and foot pain. Dr. Andres made aware of this and telephone order RBV for 2mg morphine Q6HR PRN received as well as precedex drip to be used for patient comfort if patient begins to become noncompliant with Bipap. Patient is resting in bed at this time, no other/new wounds noted on admission assessment.
[2024-08-24] MEDS: morphine 4 mg/mL SDV 1 mL 2 MG IVP (16:52)
[2024-08-24] MEDS: ciprofloxacin 0.3% Op Soln 2.5 mL Btl 1 DROP EYE-BOTH ×2 (16:56→21:02)
[2024-08-24 17:03] LABS: Glucose Point of Care 81 mg/dL (70-110)
[2024-08-24] MEDS: FUROsemide 200 MG in sodium chloride 0.9% (100 ml) 80 ML IV (17:31)
[2024-08-24] MEDS: vancomycin 1,500 MG/300 ML PIGGYBACK 200 MG IV (18:14)
--- NOTE | 2024-08-24 18:25 | PM.CONSULT ---
Providers/Reason For Consult Consulting Physician/Specialty*: Internal medicine/hospitalist Reason for Consult*: Cardiac evaluation for 1 severe cardiomyopathy #2 preop cardiac evaluation for lower extremity wound debridement Requesting Physician: Adriana Andres Attending Physician: Adriana Andres MD Primary Care Provider: Itz Pierson MD History of Present Illness History of Present Illness Ely Hare is a 64 year old male with known severe cardiomyopathy, LVEF 15 to 20%, status post ICD placement, was admitted with worsening heart failure/volume overload related send symptoms. Patient is well-known to the cardiology department because of his recurrent admission for same. Patient also has a bilateral lower extremities chronic leg ulcers. He was recently evaluated by loan operations specialist and have plan for local wound debridement and possible amputation of 1-2 toes because of ongoing infection with underlying likely osteomyelitis. From cardiac standpoint of view patient is significantly volume overloaded. He has a chronic edema up to his upper thighs, and abdominal wall as well. Currently patient is on BiPAP for respiratory distress. Of note patient is on BiPAP at home. Patient is very poor historian, however according to the hospitalist patient will need the debridement/amputation of toes surgery within the next couple of days. His current cardiovascular status is somewhat worsened due to significant chronic fluid retention. Vitals are stable. And the patient is not in any active respiratory distress. Clinically no angina. Review of Systems Narrative: Detailed 10 point systemic review unremarkable except for as mentioned above in the history of present illness. Medications/Allergies Home Medications ?Medication ?Instructions ?Recorded ?Confirmed ?Last Taken ?Type aspirin 81 mg tablet,delayed 81 mg PO DAILY #30 tabs 06/17/24 08/23/24 06/23/24 Rx release sodium hypochlorite 0.125 % 1 applic topical DAILY #473 mL 07/09/24 08/23/24 Unknown Rx solution (Dakin's Solution) carvedilol 6.25 mg tablet 6.25 mg PO BID #60 tabs 08/14/24 08/23/24 Unknown Rx dapagliflozin propanediol 10 mg 10 mg PO DAILY #30 tabs 08/14/24 08/23/24 Unknown Rx tablet (Farxiga) furosemide 40 mg tablet 40 mg PO DAILY@0800 #30 tabs 08/14/24 08/23/24 Unknown Rx sacubitril 24 mg-valsartan 26 mg 1 tab PO BID #30 tabs 08/14/24 08/23/24 Unknown Rx tablet (Entresto) Allergies Allergy/AdvReac Type Severity Reaction Status Date / Time No Known Allergies Allergy Verified 08/23/24 11:26 Current Medications Generic Name Dose Route Start Last Admin Trade Name Freq PRN Reason Stop Dose Admin Carvedilol 6.25 mg 08/24/24 18:00 08/24/24 17:50 Carvedilol 6.25 Mg Tablet PO Not Given BID AMBER Ciprofloxacin HCl 1 drop 08/24/24 17:00 08/24/24 16:56 Ciprofloxacin 0.3% Op Soln 2.5 Ml Btl EYE-BOTH 1 drop QID AMBER Administration Protocol Collagenase 1 applic 08/24/24 11:45 08/24/24 11:51 Collagenase Oint 30 Gm TOPICAL 1 applic DAILY AMBER Administration Heparin Sodium (Porcine) 5,000 unit 08/24/24 09:00 08/24/24 09:36 Heparin 5,000 Unit/Ml Inj 1 Ml SUBCUT 5,000 unit Q12H AMBER Administration Vancomycin HCl 1,500 mg in 300 mls @ 200 mls/hr 08/24/24 19:00 08/24/24 18:14 Vancocin IV 200 mls/hr Q18H AMBER Administration Furosemide 200 mg/ Sodium 100 mls @ 0 mls/hr 08/24/24 17:30 08/24/24 17:31 Chloride IV 10 mg/hr .Q0M AMBER 5 mls/hr Administration Protocol As Directed Insulin Human Lispro 0 unit 08/23/24 18:00 08/24/24 17:16 Insulin Lispro 100 Unit/1 Ml SUBCUT Not Given WM&BEDTIME AMBER Protocol Meropenem 1,000 mg 08/24/24 14:00 08/24/24 14:28 Meropenem 1,000 Mg Sdv IVP 1,000 mg Q8H AMBER Administration Protocol Morphine Sulfate 2 mg 08/24/24 16:36 08/24/24 16:52 Morphine 4 Mg/Ml Sdv 1 Ml IVP 2 mg Q6H PRN Administration SEVERE PAIN Pantoprazole Sodium 40 mg 08/24/24 09:00 08/24/24 09:[address] 40 Mg Tablet PO 40 mg DAILY AMBER Administration PFSH Acute PFSH: Medical History Chronic wound of extremity HFrEF (heart failure with reduced ejection fraction) Hypertensive urgency BMI 37.0-37.9, adult Lower extremity edema Third degree heart block Status post pacemaker placement, 2024 [facility] Congestive heart failure Gout Immunization counseling Seropositive rheumatoid arthritis of multiple sites Hypertension Surgical History History of hernia repair Family History Mother Cancer breast Father Cancer non hodgkins lymphoma Other CAD (coronary artery disease) Diabetes Family history of premature coronary artery disease Denies family history of Rheumatoid arthritis Lupus Hyperlipidemia Chronic kidney disease (CKD) Lung disease Hypertension Stroke Social History Smoking and tobacco/nicotine status: never used tobacco/nicotine Alcohol intake: never Substance/Drug Use: never Lives independently: Yes Marital status: Single Number of children: 1 Current occupational status: retired Special jennifer needs: No Agree to transfusion: Yes Vitals/I&O/Wt Last Vital Signs Temp 97.5 F L 08/24/24 16:28 Pulse 81 08/24/24 16:44 Resp 12 08/24/24 16:52 BP 115/71 08/24/24 16:28 Pulse Ox 98 08/24/24 16:52 O2 Del Method BiPAP 08/24/24 16:28 FiO2 30 08/24/24 16:41 08/24/24 08/24/24 08/24/24 06:59 14:59 22:59 Intake Total 1200 / 1250 480 / 480 0 / 480 Output Total 225 / 225 1050 / 1050 Balance 975 / 1025 480 / 480 -1050 / -570 Weight last 48 hrs Weight 263 lb 3.2 oz Weight 262 lb 8 oz Weight 250 lb Physical Exam Narrative: Patient laying comfortably on his bed. He is currently on BiPAP. He is somewhat somnolent, however does respond to verbal commands. Const: OTHER: Unremarkable. HENMT: OTHER: Normal Resp: OTHER: Good air entry bilaterally. Reduced air entry at the bases with minimal rales at the bases. Cardio: OTHER: Distant cardiac heart sounds. Normal 1st and 2nd heart sounds. There is mild systolic murmur. GI: OTHER: Abdomen soft nontender. Extremity: OTHER: There is a chronic at least 2-3+ edema up to upper thigh/lower abdominal. Neuro: OTHER: Unable to obtain any history from the patient. It appears he is gross neuro examination unremarkable. Skin: OTHER: Skin is warm and dry. Urinary Catheter Management: Marsh: Cath Placed During This Visit: yes Reason for Continuing Indwelling Catheter: Accurate Measurement of Urinary Output in Critically Ill Patients Urinary Catheter Date of Insertion: 08/24/24 Urinary Catheter Time of Insertion: 04:54 Data 08/24/24 05:14 08/24/24 05:14 Micro: Microbiology 08/23/24 12:37 Blood Culture - Preliminary Blood NEGATIVE TO DATE 08/23/24 12:37 Blood Culture - Preliminary Blood NEGATIVE TO DATE A&P Assessment and plan (1) Osteomyelitis: (2) Congestive heart failure: Qualifiers: Heart failure chronicity: acute on chronic Heart failure type: systolic Qualified Code(s): I50.23 - Acute on chronic systolic (congestive) heart failure (3) Ulcer of left foot with fat layer exposed: (4) Venous stasis ulcer: Plan This is a 64-year-old male patient with known severe cardiomyopathy, LVEF 15 to 20%, status post AICD, now admitted with heart failure worsening symptoms, significant volume retention in lower extremities. Additionally patient also requires wound debridement over both lower extremities/feet. Additionally he also might require amputation of couple of toes. Overall patient is stable at baseline. However considering very low LV EF 15 to 20% and history of severe cardiac arrhythmia in the past requiring AICD. Overall cardiovascular status is quite stable. He remains significant volume overload, especially in his both lower extremities. No arrhythmia observed on application support lead. Regarding a cardiovascular evaluation amanda-operatively, patient is at low to moderate risk for debridement/amputation of toe surgery under local/regional block anesthesia. Same procedure under general esthesia (GA) will carry high perioperative cardiac risk therefore, strongly recommend to use local anesthesia. With regard to his significant volume overload status, I recommend to start him on furosemide infusion, to start with 10 mg/h. Will continue rest of his medication. PDMP PDMP Reviewed: Not Reviewed Consult Attestations Medical Necessity Statement: CHS/Cardiomyopathy Coding Level of Care Code G0425 (30 min) Diagnoses Osteomyelitis M86.9 Acute on chronic systolic congestive heart failure I50.23 Heart failure chronicity: acute on chronic Heart failure type: systolic Ulcer of left foot with fat layer exposed L97.522 Venous stasis ulcer I83.009; L97.909 Time Spent (min) 35
[2024-08-24] MEDS: dexmedeTOMIDine 0.9 % NaCL 400 MCG/100 ML PREMIX IV (19:02)
--- NOTE | 2024-08-24 19:11 | PC.NURSE ---
Attempted to call patients son, Kana, to notify of patient transfer to ICU. Voicemail identified the number as correct for Kana Hare. Voicemail and ICU direct phone number left with son to call back for an update.
[2024-08-24 19:47] LABS: Glucose Point of Care 43 mg/dL (70-110)
[2024-08-24] MEDS: dextrose 10% 250 ML 999 ML IV ×2 (19:52→20:40)
[2024-08-24 20:03] LABS: ABG PH Result 7.23 (7.35-7.45); Arterial Blood Gas Hematocrit 32.3 % (42-52); Base Excess ABG -1.3 mmol/L (-2.0-2.0); Blood Gas Allen Test Pos; Blood Gas Operator Identificat JDB; Blood Gas Sample Site Radial, right; Blood Gas Sample Type Arterial; HCO3 ABG 27.2 mmol/L (22-26); Oxygen Device BIPAP; PO2 FiO2 Ratio Arterial Blood 318
[2024-08-24 20:05] LABS: ABG PCO2 65.7 mmHg (35-45)
[2024-08-24] MEDS: glucagon 1 mg/mL KIT 1 mL IM ×3 (20:05→22:54)
[2024-08-24 20:17] LABS: Glucose Point of Care 45 mg/dL (70-110)
[2024-08-24 20:17] LABS: Glucose Point of Care 52 mg/dL (70-110)
--- NOTE | 2024-08-24 20:40 | PC.NURSE ---
1942: Patient's blood glucose 43, 250 ml D10 bolus started per hypoglycemia protocol. Patient still arousable. Dr. Ortiz notified and said to also give glucagon as needed. Pateint's glucose rechecked at 1999 and was 45, Glucagon administered. 20:15 recheck was 52 20:23 Recheck 33, glucagon administered and Dr. Ortiz notified. Orders recieved for aditional D10 bolus and then D10 @ 50.
[2024-08-24 20:48] LABS: Glucose Point of Care 33 mg/dL (70-110)
--- NOTE | 2024-08-24 21:00 | PC.NURSE ---
Lasix drip titrated to 10 mg/hr per Dr. Ortiz.
[2024-08-24] MEDS: octreotide 100 mcg/mL SDV 25 MCG IVP ×2 (21:01→23:11)
--- NOTE | 2024-08-24 21:15 | PC.NURSE ---
Patient's son, Kana called unit back for an update. Updated of transfer to icu and patient condition.
[2024-08-24 21:19] LABS: Glucose Point of Care 84 mg/dL (70-110)
[2024-08-24 21:19] LABS: Glucose Point of Care 79 mg/dL (70-110)
--- NOTE | 2024-08-24 21:19 | PC.NURSE ---
Dr. Ortiz came to bedside. Patient is becoming more lethargic. Blood glucose up to 79, Dr. Ortiz stated to hold off on D10 drip for now due to fluid overload.
--- NOTE | 2024-08-24 21:22 | PC.NURSE ---
Lasix drip titrated to 20mg/hr per Dr. Ortiz.
[2024-08-24 21:38] LABS: Anion Gap 13.5 (5-19); Blood Urea Nitrogen 25 mg/dL (8-23); Calcium 8.2 mg/dL (8.5-10.5); Carbon Dioxide 27 mmol/L (22-29); Chloride 108 mmol/L (98-107); Creatinine Clr Calc Pharmacy 55.2539; Glomerular Filtration Rate 40.7 mL/min (90-130); Glucose 141 mg/dL (65-115); NT Pro B Type Natriuretic Pept 5959 pg/mL (0-125); Osmolality Calculated 305 mOsm/kg (285-295); Potassium 4.5 mmol/L (3.5-5.1); Sodium 144 mmol/L (136-145)
[2024-08-24 21:56] LABS: Glucose Point of Care 72 mg/dL (70-110)
[2024-08-24] MEDS: dextrose 10% 1,000 ML 50 ML IV (22:55)
--- NOTE | 2024-08-24 23:01 | PC.NURSE ---
Addendum entered by Nan Stewart RN 08/24/24 23:27: Recheck after bolus is 125. Original Note: Patient's blood glucose 36, Glucagon administered and D10 started. Dr. Ortiz notified and said to give D10 bolus and recheck glucose after bolus.
[2024-08-24 23:26] LABS: Glucose Point of Care 36 mg/dL (70-110)
[2024-08-24 23:26] LABS: Glucose Point of Care 125 mg/dL (70-110)
[2024-08-25] VITALS (105 sets, daily range): BP systolic 97–197; BP diastolic 54–105; PULSE 59–104; RESP 0–22; TEMP 36.4–36.6; O2SAT 70–100
[2024-08-25 00:55] LABS: Glucose Point of Care 89 mg/dL (70-110)
[2024-08-25 01:58] LABS: Glucose Point of Care 87 mg/dL (70-110)
[2024-08-25 03:03] LABS: Glucose Point of Care 66 mg/dL (70-110)
[2024-08-25] MEDS: glucagon 1 mg/mL KIT 1 mL IM (03:05)
--- NOTE | 2024-08-25 03:07 | PC.NURSE ---
Blood glucose 66, D10 blolus started and Glucogon administered. Dr. Ortiz notified.
[2024-08-25] MEDS: FUROsemide 200 MG in sodium chloride 0.9% (100 ml) 80 ML 10 MG IV (04:08)
--- NOTE | 2024-08-25 04:17 | PC.NURSE ---
Lasix drip titrated back down to 10mg/hr per Dr. Ortiz.
[2024-08-25 04:23] LABS: Glucose Point of Care 89 mg/dL (70-110)
[2024-08-25 04:23] LABS: Glucose Point of Care 113 mg/dL (70-110)
[2024-08-25 04:25] LABS: ABG PCO2 56.9 mmHg (35-45); ABG PH Result 7.29 (7.35-7.45); Base Excess ABG -0.1 mmol/L (-2.0-2.0); Blood Gas Allen Test Pos; Blood Gas Operator Identificat JDB; Blood Gas Sample Site Radial, right; Blood Gas Sample Type Arterial; Blood Gas Tidal Volume 0.55; Carboxyhemoglobin 1.7 %THgb (0.4-20.1); HCO3 ABG 27.2 mmol/L (22-26); HGB O2 Sat 97.2 % (95-100); Ionized Calcium Level - ABG 1.3 mmol/L (1.1-1.4); Methemoglobin 0.9 % (0.4-1.5); Oxygen Device BIPAP; Oxygen Saturation ABG > 99.1; PO2 FiO2 Ratio Arterial Blood 345; Potassium Level - ABG 3.7 mmol/L (3.5-5.0); Total Hemoglobin 10.8 g/dL (14-18)
[2024-08-25 04:48] LABS: Basophils # 0.1 10^3/uL (0.0-0.1); Basophils % 1.2 %; Hematocrit 36.6 % (37-53); Lymphocytes # 0.6 10^3/uL (0.8-4.8); Mean Corpuscular Hemoglobin 27.1 pg (27-33); Mean Corpuscular Volume 93.6 fl (82-101); Mean Platelet Volume 10.3 fL (7.4-10.4); Monocytes # 0.9 10^3/uL (0.2-0.9); Monocytes % 9.8 %; Neutrophils # 7.19 10^3/uL (1.8-7.7); Neutrophils % 81.5 %; Nucleated Red Blood Cells % 0 %; Platelet Count 249 10^3/cmm (157-399); Red Blood Count 3.91 10^6/uL (3.85-5.65); Red Cell Distribution Width 17.2 % (12.1-15.1); White Blood Count 8.82 10^3/uL (3.29-11.43)
[2024-08-25] MEDS: morphine 4 mg/mL SDV 1 mL 2 MG IVP ×2 (04:58→17:52)
[2024-08-25] MEDS: meropenem 1,000 mg SDV 1000 MG IVP ×3 (04:59→21:47)
[2024-08-25 05:07] LABS: Alanine Aminotransferase 12 U/L (0-41); Albumin Level 3.2 g/dL (3.5-5.2); Alkaline Phosphatase 157 U/L (40-130); Blood Urea Nitrogen 25 mg/dL (8-23); Calcium 8.2 mg/dL (8.5-10.5); Carbon Dioxide 24 mmol/L (22-29); Chloride 107 mmol/L (98-107); Creatinine Clr Calc Pharmacy 62.3061; Globulin 2.3 g/dL (1.3-4.6); Glucose 87 mg/dL (65-115); Osmolality Calculated 300 mOsm/kg (285-295); Sodium 143 mmol/L (136-145); Total Bilirubin 1.2 mg/dL (0.15-1.2); Total Protein 5.5 g/dL (6.6-8.7)
[2024-08-25 05:10] LABS: Anion Gap 16.4 (5-19); Aspartate Amino Transferase 21 U/L (0-40); Potassium 4.4 mmol/L (3.5-5.1)
[2024-08-25 05:49] LABS: Glucose Point of Care 77 mg/dL (70-110)
[2024-08-25 06:04] LABS: Glucose Point of Care 78 mg/dL (70-110)
[2024-08-25 07:07] LABS: Glucose Point of Care 72 mg/dL (70-110)
[2024-08-25] MEDS: aspirin 81 mg EC Tablet PO (08:51)
[2024-08-25] MEDS: pantoprazole DR 40 mg Tablet PO (08:51)
[2024-08-25] MEDS: ciprofloxacin 0.3% Op Soln 2.5 mL Btl 1 DROP EYE-BOTH ×4 (08:52→21:48)
[2024-08-25] MEDS: heparin 5,000 unit/mL INJ 1 mL 5000 UNIT SUBCUT ×2 (08:52→21:47)
[2024-08-25 08:54] LABS: Glucose Point of Care 56 mg/dL (70-110)
--- NOTE | 2024-08-25 09:11 | PC.NURSE ---
Patients BG 56, AOX4, Given 4 oz orange juice with AM PO meds.
[2024-08-25 09:27] LABS: Glucose Point of Care 70 mg/dL (70-110)
--- NOTE | 2024-08-25 09:30 | P.PN_ITS ---
Subjective 2 Subjective: awake and alert this morning, given a break from Bipap this morning , net negative 2L. Medications: Reviewed: Yes Medication Review Details: Meds reviewed and adjusted. Vitals/I&O/Wt Last Vital Signs Temp 97.6 F 08/25/24 16:00 Pulse 77 08/25/24 16:00 Resp 12 08/25/24 17:52 BP 133/74 08/25/24 16:00 Pulse Ox 91 08/25/24 17:52 O2 Del Method BiPAP 08/25/24 16:00 O2 Flow Rate 4 08/25/24 13:30 FiO2 30 08/25/24 16:00 08/25/24 08/25/24 08/25/24 06:59 14:59 22:59 Intake Total 411.499 / 1760.857 722 / 722 480 / 1202 Output Total 1175 / 2575 1500 / 1500 2450 / 3950 Balance -763.501 / -814.143 -778 / -778 -1970 / -2748 Weight last 48 hrs Weight 118.252 kg Weight 119.386 kg Weight 119.068 kg Physical Exam 2 Narrative: General: No acute distress, AO x3 HEENT: PERRLA, pupils bilaterally equal and reactive, pallors not present Chest: Normal vesicular breath sounds, no added sounds, equal good air entry bilaterally CVS: S1-S2 regular, no murmurs, no tachycardia, no gallops, no rubs Abdomen: Soft, nontender, no organomegaly, bowel sounds present Neuro: No focal deficits, no facial deformity, AO x3, power 5/5 in all limbs Ext: B/L LE wound wrapped with compression dressing currently Urinary Catheter Management: Marsh: Cath Placed During This Visit: yes Reason for Continuing Indwelling Catheter: Accurate Measurement of Urinary Output in Critically Ill Patients Urinary Catheter Date of Insertion: 08/24/24 Urinary Catheter Time of Insertion: 04:54 Data 08/25/24 04:16 08/25/24 04:16 A&P Assessment and plan (1) Bilateral cellulitis of lower leg: (2) Acute exacerbation of CHF (congestive heart failure): Qualifiers: Heart failure type: unspecified Qualified Code(s): I50.9 - Heart failure, unspecified (3) Type 2 diabetes mellitus: Qualifiers: Diabetes mellitus complication detail: with peripheral angiopathy without gangrene Diabetes mellitus complication status: with circulatory complication Diabetes mellitus long term care pharmacist insulin use: without skilled nursing use Q ualified Code(s): E11.51 - Type 2 diabetes mellitus with diabetic peripheral angiopathy without gangrene (4) Bilateral leg ulcer: Qualifiers: Non-pressure ulcer stage: unspecified non-pressure ulcer stage Q ualified Code(s): L97.919 - Non-pressure chronic ulcer of unspecified part of right lower leg with unspecified severity; L97.929 - Non-pressure chronic ulcer of unspecified part of left lower leg with unspecified severity (5) Red eye: (6) Osteomyelitis of foot: (7) Abscess of left foot: Plan 64-year-old male currently admitted with chief complaints of worsening lower extremity wounds Patient has open wounds of the right tibial chowdhury, noted to have puslike drainage. Additional wounds over noted over the left and right foot. Over the left foot there is an area of past-pointing and drainage in the second metatarsal space. Obtain CT evaluation of bilateral lower extremities and feet to assess for underlying osteomyelitis. Blood cultures taken in the emergency room. Start piperacillin/tazobactam and vancomycin empirically. Based on CT results, will likely need podiatry and general surgery assessments. Of note surgical service is not available at the hospital until August 25, 2024. Celena patient is not showing signs of sepsis, will start iv abx and monitor closely. lasix 40mg iv q12h for acute on chronic CHF exacerbation monitor urine output and creatinine closely 08/24/24 Patient noted to be in hypercapneic respiratory acidosis. Placed on Bipap, serial ABG to be checked. CT findings as above with left metatarsal osteomyelitis and abscess. Right foot tenosynovitis cellulitis and open wound. Podiatry consulted, appreciate recommendations. Plan for OR intervention early next week. May need general anesthesia. Cardiology consult for pre op cardiac risk assessment. His current significant comorbidities include CHF exacerbation, nonischemic cardiomyopathy with ejection fraction of 15%. Currently has defibrillator in place. Patient had 6 beat run of V. tach today. Resume home dose of carvedilol 6.25 mg p.o. twice daily. Continue insulin sliding scale. Priro cx data reviewed, Achromobacter has variable susceptibility most recent isolate noted sensitivity to piperacillin/tazobactam, however prior to isolates reported resistant. Will switch Zosyn to meropenem 1 g IV every 8 hours. Continue vancomycin. To obtain cultures with OR debridement. Anticipate patient will need 4 to 6 weeks of IV antibiotics for osteomyelitis. Will plan on PICC line placement once blood cultures are negative for 48 hours. 08/25/24 : Improving mentation today, He is awake alert and conversant this morning. Hypoglycemic overnight. Now that mentation is better, okay to resume diet. Patient states he does not have a Bipap but an 02 concentrator at home and uses intermittent 02 when he feels SOB. He wonders if he will benefit from a Bipap at home. HE continues to be on a lasix drip, diuresing well, currently net negative by 2L this morning. renal function stable with cr at 1.5. Continue lasix drip per cardiology recommendation. No chest pain. Continue iv abx inculding meropenem and vancomycin. Planned for OR intervention tomorrow, likely under local anesthesia/ nerve block as he is poor candidate for general anesthesia. He will need 6 weeks of iv abx for osteomyelitis of left metatarsal and right tibia showing signs of tenosynovitis, early osteomyelitis. Abx to be decided based on cultures from OR. Picc line to facilitate above. Discussed with patient that he will be best served by transitioning to SNF for daily rigorous wound care, daily iv abx, Picc line care. HE lives alone and has no assistance. He is hesitant to move to SNF as he fears he will have squatters on his property like the last time he was in SNF. He is agreeable to move to SNF if he can have police check in on his home from time ot time. Will discuss disposition planning with case management. PDMP PDMP Reviewed: Not Reviewed Attestations 2 Medical Necessity Statement*: continue iv abx, lasix drip, Picc line, Bipap Critical Care Time: The high probability of a clinically significant, sudden or life threatening deterioration of the patient's [cardiac, respiratory, ID] system(s) required my full and direct attention, intervention and personal management. The critical care time is as shown. This time is in addition to time spent performing any reported procedures but includes the following: [x] Data and vital sign review and interpretation [x] Patient assessment, examination and intervention [x] Documentation [x] Medication orders and management Critical Care Time (min): 50 Coding Level of Care Code Critical Care >/= 30 minutes Diagnoses Bilateral cellulitis of lower leg L03.116; L03.115 Acute exacerbation of CHF (congestive heart failure) I50.9 Heart failure type: unspecified Type 2 diabetes mellitus with diabetic peripheral angiopathy without gangrene, without long-term current use of insulin E11.51 Diabetes mellitus complication detail: with peripheral angiopathy without gangrene Diabetes mellitus complication status: with circulatory complication Diabetes mellitus skilled nursing insulin use: without skilled nursing use Ulcers of both lower extremities, unspecified ulcer stage L97.919; L97.929 Non-pressure ulcer stage: unspecified non-pressure ulcer stage Red eye H57.89 Osteomyelitis of foot M86.9 Abscess of left foot L02.612
[2024-08-25 10:27] LABS: ABG PH Result 7.27 (7.35-7.45); Alveolar-Arterial Oxygen Gradi 10.1 mmHg (5-10); Arterial Blood Gas Hematocrit 33.2 % (42-52); Base Excess ABG 0.1 mmol/L (-2.0-2.0); Blood Gas Allen Test Pos; Blood Gas Operator Identificat CAK; Blood Gas Sample Site Radial, left; Blood Gas Sample Type Arterial; Carboxyhemoglobin 1.8 %THgb (0.4-20.1); HGB O2 Sat 95.9 % (95-100); Ionized Calcium Level - ABG 1.2 mmol/L (1.1-1.4); Methemoglobin 0.9 % (0.4-1.5); Oxygen Device NC; Oxygen Saturation ABG 98.6; PO2 FiO2 Ratio Arterial Blood 288; Potassium Level - ABG 3.6 mmol/L (3.5-5.0); Total Hemoglobin 10.8 g/dL (14-18)
[2024-08-25 10:28] LABS: ABG PCO2 61.3 mmHg (35-45)
[2024-08-25 10:42] LABS: Glucose Point of Care 171 mg/dL (70-110)
--- NOTE | 2024-08-25 12:46 | P.PN_ITS ---
Subjective 2 Subjective: Patient seen at bedside in the ICU. On BiPAP. BiPAP removed by nursing staff to converse with patient. Patient is alert and oriented today in comparison to yesterday's visit. Vitals/I&O/Wt Last Vital Signs Temp 97.9 F 08/25/24 07:30 Pulse 74 08/25/24 12:30 Resp 14 08/25/24 11:15 BP 127/67 08/25/24 12:30 Pulse Ox 95 08/25/24 12:30 O2 Del Method BiPAP 08/25/24 12:30 O2 Flow Rate 4 08/25/24 11:30 FiO2 30 08/25/24 11:29 08/24/24 08/25/24 08/25/24 22:59 06:59 14:59 Intake Total 869.358 / 1349.358 411.499 / 1760.857 222 / 222 Output Total 1400 / 1400 1175 / 2575 1500 / 1500 Balance -530.642 / -50.642 -763.501 / -814.143 -1278 / -1278 Weight last 48 hrs Weight 260 lb 11.2 oz Weight 263 lb 3.2 oz Weight 262 lb 8 oz Weight 250 lb Physical Exam 2 Narrative: BELOW IS A FOCUSED LOWER EXTREMITY EXAM GENERAL: A&O x 3 VASCULAR: DP/PT pulses palpable 2/4 with CFT intact, <3seconds to distal digits DERMATOLOGICAL: Multiple full-thickness ulcerations bilateral lower legs. Left foot second digit amputation wound with active serous drainage positive probe to bone. Largest ulceration to anterior right leg measuring 13.7 x 4.5 x 0.5 cm. Mild surrounding erythema. Mixed fibrogranular wound base. MUSCULOSKELETAL: Pain to palpation of periwound area bilateral legs. Left foot second digit amputation NEUROLOGICAL: Neurological sensation to the affected foot and ankle is present through L4-S1 dermatomes with no hyper/hypoesthesias, negative Tinel or Valleix's sign Urinary Catheter Management: Marsh: Cath Placed During This Visit: yes Reason for Continuing Indwelling Catheter: Accurate Measurement of Urinary Output in Critically Ill Patients Urinary Catheter Date of Insertion: 08/24/24 Urinary Catheter Time of Insertion: 04:54 Data 08/25/24 04:16 08/25/24 04:16 Micro: Microbiology 08/23/24 12:37 Blood Culture - Preliminary Blood NEGATIVE TO DATE 08/23/24 12:37 Blood Culture - Preliminary Blood NEGATIVE TO DATE A&P Assessment and plan (1) Osteomyelitis: (2) Ulcer of left foot with fat layer exposed: (3) Abscess of left foot: (4) Venous stasis ulcer: Plan - Left foot abscess, second metatarsal osteomyelitis. Bilateral lower extremity venous stasis ulcerations -Labs and vitals reviewed -Cultures: Wound cultures from 07/01/2024 grew Stenotrophomonas maltophilia and A chromobacter xylosoxidans -Abx Vanco/Zosyn -Diet: N.p.o. at midnight -Plan for surgical intervention tomorrow 08/26/2024. This will be in the form of left foot second metatarsal incision bone cortex with removal of nonviable tissue and bone as well as venous stasis ulceration debridement. Also, due to extensive cardiac history we will need to proceed with popliteal block from anesthesia only with repeat surgical debridement of contralateral limb in the following days. -Pain Mgmt: Per primary -Weight bearing: As tolerated -Dressings: Current dressing can remain intact until surgery tomorrow for 08/26/24 -Continue current Abx therapy until ID and Sensitivity results -Trend labs -Discharge plan: To be determined -Podiatry will continue to round on patient daily and provide recommendations PDMP PDMP Reviewed: Not Reviewed Attestations 2 Medical Necessity Statement*: Surgery tomorrow Coding Level of Care Code Acute Code for [facility] Diagnoses Osteomyelitis M86.9 Ulcer of left foot with fat layer exposed L97.522 Abscess of left foot L02.612 Venous stasis ulcer I83.009; L97.909
[2024-08-25] MEDS: vancomycin 1,500 MG/300 ML PIGGYBACK 200 MG IV (13:08)
--- NOTE | 2024-08-25 13:16 | P.PN_ITS ---
Subjective 2 Subjective: I saw Mr. Hare today, review events during last 24 hours, lab data, medication and 24-hour urine output. He is much more stable clinically. He has more than 2 L negative urine output with the 10 mg/h of Lasix infusion overall his vitals are stable. Serum electrolytes and serum electrolytes are stable at baseline. He is still on BiPAP and we are hoping to get him off the BiPAP today. Medications: Medication Review Details: Meds reviewed and adjusted. Vitals/I&O/Wt Last Vital Signs Temp 97.9 F 08/25/24 07:30 Pulse 74 08/25/24 12:30 Resp 14 08/25/24 11:15 BP 127/67 08/25/24 12:30 Pulse Ox 95 08/25/24 12:30 O2 Del Method BiPAP 08/25/24 12:30 O2 Flow Rate 4 08/25/24 11:30 FiO2 30 08/25/24 11:29 08/24/24 08/25/24 08/25/24 22:59 06:59 14:59 Intake Total 869.358 / 1349.358 411.499 / 1760.857 222 / 222 Output Total 1400 / 1400 1175 / 2575 1500 / 1500 Balance -530.642 / -50.642 -763.501 / -814.143 -1278 / -1278 Weight last 48 hrs Weight 260 lb 11.2 oz Weight 263 lb 3.2 oz Weight 262 lb 8 oz Weight 250 lb Physical Exam 2 Const: OTHER: Comfortably lying in the bed wearing a BiPAP. Denies any chest pain or any discomfort. HENMT: OTHER: Patient is wearing BiPAP. Otherwise unremarkable Resp: OTHER: Good air entry bilaterally. Minimal rales at the bases bilaterally. Cardio: OTHER: Normal for second heart sounds. There is systolic murmur of MR. GI: OTHER: Soft nontender abdomen. Bowel sounds audible. Extremity: NARRATIVE EXTREMITY EXAM: Still 1-2+ chronic pitting edema is more over the thighs and upper legs. Neuro: OTHER: Grossly intact. Skin: OTHER: Warm and dry. Urinary Catheter Management: Marsh: Cath Placed During This Visit: yes Reason for Continuing Indwelling Catheter: Accurate Measurement of Urinary Output in Critically Ill Patients Urinary Catheter Date of Insertion: 08/24/24 Urinary Catheter Time of Insertion: 04:54 Data 08/25/24 04:16 08/25/24 04:16 Micro: Microbiology 08/23/24 12:37 Blood Culture - Preliminary Blood NEGATIVE TO DATE 08/23/24 12:37 Blood Culture - Preliminary Blood NEGATIVE TO DATE A&P Assessment and plan (1) HFrEF (heart failure with reduced ejection fraction): (2) Venous stasis ulcer: Plan 64-year-old male patient with a severe cardiomyopathy, EF of 15 to 20% admitted with worsening heart failure symptoms as well as worsening lower extremity chronic ulcers with a superadded infection/osteomyelitis Clinically he is stable from cardiovascular point of view. He is diuresing well with the current management. Vitals remained stable. Plan to continue him on furosemide infusion 10 mg/h for next 24 hours. Then changed to schedule Lasix. Patient is scheduled to have debridement of his ulcers of the lower extremities and a possible amputation of toes due to chronic osteomyelitis. With his advanced cardiac disease he will be at a high perioperative cardiac risk undergoing general anesthesia. Therefore recommend local anesthesia/regional blocks. PDMP PDMP Reviewed: Not Reviewed Attestations 2 Medical Necessity Statement*: Congestive heart failure. Bilateral lower extremity ulcers Coding Level of Care Code 40086 Diagnoses HFrEF (heart failure with reduced ejection fraction) I50.20 Venous stasis ulcer I83.009; L97.909 Time Spent (min) 25
[2024-08-25 17:32] LABS: Glucose Point of Care 133 mg/dL (70-110)
[2024-08-25 20:50] LABS: Alanine Aminotransferase 10 U/L (0-41); Albumin Level 3.1 g/dL (3.5-5.2); Alkaline Phosphatase 142 U/L (40-130); Aspartate Amino Transferase 13 U/L (0-40); Blood Urea Nitrogen 26 mg/dL (8-23); Carbon Dioxide 27 mmol/L (22-29); Chloride 104 mmol/L (98-107); Globulin 2.7 g/dL (1.3-4.6); Glomerular Filtration Rate 43.6 mL/min (90-130); Glucose 114 mg/dL (65-115); Osmolality Calculated 300 mOsm/kg (285-295); Sodium 142 mmol/L (136-145); Total Protein 5.8 g/dL (6.6-8.7)
[2024-08-26] VITALS (56 sets, daily range): BP systolic 95–157; BP diastolic 52–110; PULSE 73–125; RESP 0–31; TEMP 36.8; O2SAT 69–99
[2024-08-26] MEDS: morphine 4 mg/mL SDV 1 mL 2 MG IVP ×2 (00:07→20:45)
[2024-08-26] MEDS: FUROsemide 200 MG in sodium chloride 0.9% (100 ml) 80 ML IV (00:08)
[2024-08-26 02:54] LABS: Basophils # 0.1 10^3/uL (0.0-0.1); Basophils % 0.9 %; Hematocrit 34.7 % (37-53); Lymphocytes # 0.6 10^3/uL (0.8-4.8); Lymphocytes % 6.2 %; Mean Corpuscular HGB Conc 29.4 g/dL (30-55); Mean Corpuscular Hemoglobin 26.9 pg (27-33); Mean Corpuscular Volume 91.6 fl (82-101); Mean Platelet Volume 9.6 fL (7.4-10.4); Monocytes % 10.2 %; Neutrophils # 8.36 10^3/uL (1.8-7.7); Neutrophils % 82.4 %; Nucleated Red Blood Cells % 0 %; Platelet Count 229 10^3/cmm (157-399); Red Blood Count 3.79 10^6/uL (3.85-5.65); Red Cell Distribution Width 17.2 % (12.1-15.1); White Blood Count 10.15 10^3/uL (3.29-11.43)
[2024-08-26 03:00] LABS: Glucose Point of Care 93 mg/dL (70-110)
[2024-08-26 03:20] LABS: Alanine Aminotransferase 9 U/L (0-41); Alkaline Phosphatase 134 U/L (40-130); Aspartate Amino Transferase 15 U/L (0-40); Blood Urea Nitrogen 27 mg/dL (8-23); Calcium 8.1 mg/dL (8.5-10.5); Carbon Dioxide 28 mmol/L (22-29); Chloride 104 mmol/L (98-107); Globulin 2.5 g/dL (1.3-4.6); Glomerular Filtration Rate 43.6 mL/min (90-130); Glucose 105 mg/dL (65-115); Osmolality Calculated 299 mOsm/kg (285-295); Sodium 142 mmol/L (136-145); Total Bilirubin 1.1 mg/dL (0.15-1.2); Total Protein 5.5 g/dL (6.6-8.7)
[2024-08-26 03:22] LABS: Anion Gap 13.6 (5-19); Potassium 3.6 mmol/L (3.5-5.1)
[2024-08-26 04:08] LABS: ABG PCO2 52.2 mmHg (35-45); ABG PH Result 7.39 (7.35-7.45); Arterial Blood Gas Hematocrit 32.5 % (42-52); Base Excess ABG 5.3 mmol/L (-2.0-2.0); Blood Gas Allen Test Pos; Blood Gas Operator Identificat JDB; Blood Gas Sample Site Radial, right; Blood Gas Sample Type Arterial; Blood Gas Tidal Volume 0.55; HCO3 ABG 31.3 mmol/L (22-26); Oxygen Device BIPAP; PO2 FiO2 Ratio Arterial Blood 280
[2024-08-26] MEDS: meropenem 1,000 mg SDV 1000 MG IVP ×2 (05:12→16:26)
--- NOTE | 2024-08-26 07:19 | XR_ITS ---
WS: [id number] Exam: XR chest 1V portable [id number] Date/Time of Exam: 08/26/2024 7:51 AM Reason For Exam: Post PICC insertion Comparison 08/24/2024. A right-sided PICC line is in place appearing to be in near the cavoatrial junction in satisfactory location. The lungs are fully expanded and clear. Cardiac enlargement unchanged. The mediastinum is normal in contour. Permanent cardiac pacer over the LEFT chest. Bony structures are intact. Moderate DJD in both shoulders and of the cervical spine. XR/XR chest 1V portable [id number] IMPRESSION: 1. Right-sided PICC line ending at the cavoatrial junction in satisfactory posi tion. 2. Cardiac enlargement unchanged.
--- NOTE | 2024-08-26 08:23 | PICC.NOTE ---
Double lumen PICC placed to right basilic vein. Referred to vascular access nurse for PICC placement due to need for IV antibiotics x 6 weeks. Risks and benefits discussed and informed consent obtained from pt. Right arm assessed with right basilic vein measuring 3.8 mm, straight, and apparent best choice for placement. Using sterile technique and MST, right basilic vein accessed x 1 stick. Mid-arm circumference measured 10 cm from right AC 33 cm. Trimmed cath 45 cm with 0 cm external length noted. CXR shows tip in cavoatrial junction, in good position for use per radiologist. Line secured with stat-lock. Insertion site covered with Biopatch and TSM. Report given to bedside nurse, ELIZABETH Piper.
[2024-08-26] MEDS: ciprofloxacin 0.3% Op Soln 2.5 mL Btl 1 DROP EYE-BOTH ×4 (08:29→20:45)
[2024-08-26] MEDS: pantoprazole DR 40 mg Tablet PO (08:29)
--- NOTE | 2024-08-26 08:29 | PM.PN ---
Subjective Subjective: Patient is admitted to hospital with bilateral lower extremity nonhealing ulcers, cellulitis and possible osteomyelitis. Known to have nonischemic cardiomyopathy with a severely LV systolic dysfunction, ejection fraction around 15%. Also has an ICD. He denies any chest pain or any unusual shortness of breath. No fever or chills. Medications: Medication Review Details: Current Medications Acetaminophen (Acetaminophen 325 Mg Tablet) 650 mg PO Q6H PRN PRN Reason: Mild/Mod Pain Or Temp >/= 101 Aspirin (Aspirin 81 Mg Ec Tablet) 81 mg PO DAILY [facility] Last Admin: 08/26/24 11:18 Dose: 81 mg Ciprofloxacin HCl (Ciprofloxacin 0.3% Op Soln 2.5 Ml Btl) 1 drop EYE-BOTH QID [facility]; Protocol Last Admin: 08/26/24 20:45 Dose: 1 drop Collagenase (Collagenase Oint 30 Gm) 1 applic TOPICAL DAILY [facility] Last Admin: 08/26/24 11:17 Dose: 1 applic Furosemide (Furosemide 10 Mg/Ml Sdv 4ml) 40 mg IVP Q12H [facility] Last Admin: 08/26/24 19:54 Dose: 40 mg Glucagon (Glucagon 1 Mg/Ml Kit 1 Ml) 1 mg IM Q15M PRN PRN Reason: HYPOGLYCEMIA Last Admin: 08/25/24 03:05 Dose: 1 mg Heparin Sodium (Porcine) (Heparin 5,000 Unit/Ml Inj 1 Ml) 5,000 unit SUBCUT Q12H [facility] Last Admin: 08/26/24 20:45 Dose: 5,000 unit Dextrose (D5w) 500 mls @ 0 mls/hr IV ONCE PRN; Protocol PRN Reason: Adult Acute Hypoglycemia Prot Dextrose (D10w) 125 mls @ 750 mls/hr IV PRN PRN; Protocol PRN Reason: Adult Acute Hypoglycemia Nursing Protocol Dextrose (D10w) 1,000 mls @ 50 mls/hr IV .Q20H [facility] Last Admin: 08/26/24 16:14 Dose: Not Given Vancomycin HCl (Vancocin) 1,250 mg in 250 mls @ 200 mls/hr IV Q24H [facility] Last Admin: 08/26/24 16:27 Dose: 200 mls/hr Meropenem (Meropenem 1,000 Mg Sdv) 1,000 mg IVP Q8H [facility]; Protocol Last Admin: 08/26/24 16:26 Dose: 1,000 mg Morphine Sulfate (Morphine 4 Mg/Ml Sdv 1 Ml) 2 mg IVP Q6H PRN PRN Reason: SEVERE PAIN Last Admin: 08/26/24 20:45 Dose: 2 mg Ondansetron HCl (Ondansetron 2 Mg/Ml Sdv 2 Ml) 4 mg IVP Q8H PRN PRN Reason: vomiting, or N/V if npo Pantoprazole Sodium (Pantoprazole Dr 40 Mg Tablet) 40 mg PO DAILY [facility] Last Admin: 08/26/24 08:29 Dose: 40 mg Potassium Chloride (Potassium Chloride Er 20 Meq Tablet) 20 meq PO DAILY [facility] Vitals/I&O/Wt Last Vital Signs Temp 98.2 F 08/26/24 00:00 Pulse 73 08/26/24 06:00 Resp 11 L 08/26/24 03:45 BP 129/65 08/26/24 04:45 Pulse Ox 93 08/26/24 04:45 O2 Del Method BiPAP 08/26/24 04:45 O2 Flow Rate 4 08/25/24 13:30 FiO2 30 08/26/24 03:42 08/25/24 08/26/24 08/26/24 22:59 06:59 14:59 Intake Total 480 / 1202 98.667 / 1300.667 Output Total 3400 / 4900 2700 / 7600 Balance -2920 / -3698 -2601.333 / -6299.333 Weight last 48 hrs Weight 245 lb 13.047 oz Weight 260 lb 11.2 oz Physical Exam Narrative: GENERAL: The patient is alert and oriented times three. Not in any acute distress. Somewhat lethargic HEENT: No significant pallor, icterus or lymphadenopathy.Oral cavity: There are no mucous membrane lesions. NECK: Trachea appears to be central. No masses noted. No JVD or thyromegaly appreciated. RESPIRATORY: Chest is symmetrical. No intercostals muscle retraction or any accessory muscle activation. There is no chest wall tenderness. Breath sounds are heard bilaterally. No rales or rhonchi heard. No evidence of any consolidation. BREASTS: Deferred. HEART: The heart sounds are normal. No S3 or S4. No significant murmurs. No pericardial rub ABDOMEN: No vessel pulsations or distention. No tenderness. No organomegaly appreciated. Bowel sounds are normally heard. : Deferred. RECTAL: Deferred. LYMPHATIC: No lymphadenopathy noted in the neck or groin. EXTREMITIES: 2-3+ edema bilaterally.. Redness in both lower extremities and are bandaged. MUSCULOSKELETAL: No acute joint deformities or swelling SKIN: There are no significant scars or skin rash noted. NEUROPSYCHIATRIC: The patient is alert and oriented x3. Appears to be in a good mood. No tremors or rigidity noted. Urinary Catheter Management: Marsh: Cath Placed During This Visit: yes Reason for Continuing Indwelling Catheter: Accurate Measurement of Urinary Output in Critically Ill Patients Urinary Catheter Date of Insertion: 08/24/24 Urinary Catheter Time of Insertion: 04:54 Data 08/26/24 02:36 08/26/24 02:36 Other Labs: Laboratory Last Values WBC 10.15 10^3/uL (3.29-11.43) 08/26/24 02:36 RBC 3.79 10^6/uL (3.85-5.65) L 08/26/24 02:36 Hgb 10.20 g/dL (11.27-16.99) L 08/26/24 02:36 Hct 34.7 % (37-53) L 08/26/24 02:36 MCV 91.6 fl (82-101) 08/26/24 02:36 MCH 26.9 pg (27-33) L 08/26/24 02:36 MCHC 29.4 g/dL (30-55) L 08/26/24 02:36 RDW 17.2 % (12.1-15.1) H 08/26/24 02:36 Plt Count 229 10^3/cmm (157-399) 08/26/24 02:36 MPV 9.6 fL (7.4-10.4) 08/26/24 02:36 Neut % (Auto) 82.4 % 08/26/24 02:36 Lymph % (Auto) 6.2 % 08/26/24 02:36 Brooks % (Auto) 10.2 % 08/26/24 02:36 Eos % (Auto) 0.0 % 08/26/24 02:36 Baso % (Auto) 0.9 % 08/26/24 02:36 Neut # (Auto) 8.36 10^3/uL (1.8-7.7) H 08/26/24 02:36 Lymph # (Auto) 0.6 10^3/uL (0.8-4.8) L 08/26/24 02:36 Brooks # (Auto) 1.0 10^3/uL (0.2-0.9) H 08/26/24 02:36 Eos # (Auto) 0.0 10^3/uL (0.0-0.8) 08/26/24 02:36 Baso # (Auto) 0.1 10^3/uL (0.0-0.1) 08/26/24 02:36 Nucleated RBC % (auto) 0 % 08/26/24 02:36 Nucleated RBCs # 0.0 /100WBC 08/26/24 02:36 Specimen Type Arterial 08/26/24 03:56 Sample Site Radial, right 08/26/24 03:56 ABG pH 7.39 (7.35-7.45) 08/26/24 03:56 ABG pCO2 52.2 mmHg (35-45) H 08/26/24 03:56 ABG pO2 84.0 mmHg (80.0-100.0) 08/26/24 03:56 ABG PO2/FiO2 Ratio 280 08/26/24 03:56 ABG HCO3 31.3 mmol/L (22-26) H 08/26/24 03:56 ABG O2 Saturation 98.6 08/25/24 10:16 ABG Base Excess 5.3 mmol/L (-2.0-2.0) H 08/26/24 03:56 Shawn Test Pos 08/26/24 03:56 A-a O2 Gradient 10.1 mmHg (5-10) H 08/25/24 10:16 Hematocrit 32.5 % (42-52) L 08/26/24 03:56 Hgb O2 Saturation 95.9 % (95-100) 08/25/24 10:16 Carboxyhemoglobin 1.8 %THgb (0.4-20.1) 08/25/24 10:16 Methemoglobin 0.9 % (0.4-1.5) 08/25/24 10:16 Total Hemoglobin 10.8 g/dL (14-18) L 08/25/24 10:16 Sodium 141.0 mmol/L (131-143) 08/25/24 10:16 Potassium 3.6 mmol/L (3.5-5.0) 08/25/24 10:16 Glucose 124.0 mg/dL (70-115) H 08/25/24 10:16 Ionized Calcium 1.2 mmol/L (1.1-1.4) 08/25/24 10:16 O2 Delivery Device Bipap 08/26/24 03:56 O2 Liters/Min 4.0 % 08/25/24 10:16 FiO2 30.0 % 08/26/24 03:56 Tidal Volume 0.55 08/26/24 03:56 PEEP 8.0 cmH20 08/26/24 03:56 Gluer Machine Operator ID [id number] 08/26/24 03:56 Sodium 142 mmol/L (136-145) 08/26/24 02:36 Potassium 3.6 mmol/L (3.5-5.1) 08/26/24 02:36 Chloride 104 mmol/L (98-107) 08/26/24 02:36 Carbon Dioxide 28 mmol/L (22-29) 08/26/24 02:36 Anion Gap 13.6 (5-19) 08/26/24 02:36 BUN 27 mg/dL (8-23) H 08/26/24 02:36 Creatinine 1.6 mg/dL (0.7-1.2) H 08/26/24 02:36 GFR Calculation 43.6 mL/min (90-130) L 08/26/24 02:36 Glucose 105 mg/dL (65-115) 08/26/24 02:36 POC Glucose 93 mg/dL (70-110) 08/25/24 22:37 Estimat Average Glucose 114 08/23/24 12:37 Hemoglobin A1c 5.6 % (4.0-6.0) 08/23/24 12:37 Calculated Osmolality 299 mOsm/kg (285-295) H 08/26/24 02:36 Lactic Acid 2.1 mmol/L (0.5-2.2) 08/23/24 15:20 Lactic Acid (Sepsis) 2.1 mmol/L (0.5-2.2) 08/23/24 18:41 Calcium 8.1 mg/dL (8.5-10.5) L 08/26/24 02:36 Total Bilirubin 1.1 mg/dL (0.15-1.2) 08/26/24 02:36 AST 15 U/L (0-40) 08/26/24 02:36 ALT 9 U/L (0-41) 08/26/24 02:36 Alkaline Phosphatase 134 U/L (40-130) H 08/26/24 02:36 NT-Pro-B Natriuret Pep 5959 pg/mL (0-125) H 08/24/24 20:51 Total Protein 5.5 g/dL (6.6-8.7) L 08/26/24 02:36 Albumin 3.0 g/dL (3.5-5.2) L 08/26/24 02:36 Globulin 2.5 g/dL (1.3-4.6) 08/26/24 02:36 Urine Color Dark yellow (Yellow) A 08/23/24 14:46 Urine Appearance Clear (CLEAR) 08/23/24 14:46 Urine pH 5.5 (5-7) 08/23/24 14:46 Ur Specific [place] 1.026 (1.005-1.030) 08/23/24 14:46 Urine Protein 2+ (Negative) A 08/23/24 14:46 Urine Glucose (UA) Negative (Normal) 08/23/24 14:46 Urine Ketones Trace (Negative) 08/23/24 14:46 Urine Blood Negative (Negative) 08/23/24 14:46 Urine Nitrate Negative (Negative) 08/23/24 14:46 Urine Bilirubin 1+ (Negative) H 08/23/24 14:46 Urine Urobilinogen 2.0 mg/dL (Negative) H 08/23/24 14:46 Ur Leukocyte Esterase Negative (Negative) 08/23/24 14:46 Urine RBC 3-5 /hpf (0-2) 08/23/24 14:46 Urine WBC 0-5 /hpf (0-5) 08/23/24 14:46 Ur Squamous Epith Cells 0-5 /hpf (0-5) 08/23/24 14:46 Calcium Oxalate Crystal 0-4 /hpf H 08/23/24 14:46 Amorphous Sediment 1+ /hpf 08/23/24 14:46 Urine Bacteria Trace /hpf (NONE) 08/23/24 14:46 Hyaline Casts 1.65 /lpf 08/23/24 14:46 Vancomycin Trough 25.0 ug/mL (10-15) H 08/26/24 06:02 A&P Assessment and plan (1) Congestive heart failure: The heart failure seems to be compensated. May continue on the current medications. May restart the Entresto if the blood pressure is stable Qualifiers: Heart failure chronicity: acute on chronic Heart failure type: systolic Qualified Code(s): I50.23 - Acute on chronic systolic (congestive) heart failure (2) High degree atrioventricular block: Patient has an ICD. Appears to be functioning okay. (3) Hypertension: Currently normotensive. May continue on the current medications. Qualifiers: Hypertension type: primary hypertension Qualified Code(s): I10 - Essential (primary) hypertension (4) Bilateral cellulitis of lower leg: On IV antibiotics. Infection seems to be getting under control. Planning to have wound debridement/amputation today Plan Other problems are Chronic kidney disease Type 2 diabetes Anemia Restart the Entresto. Will be closely monitoring for any decompensated heart failure. Based on the clinical progress, further management decisions will be made. PDMP PDMP Reviewed: Not Reviewed Attestations Medical Necessity Statement*: Deferred to the primary Coding Level of Care Code 83890 Diagnoses Acute on chronic systolic congestive heart failure I50.23 Heart failure chronicity: acute on chronic Heart failure type: systolic High degree atrioventricular block I44.39 Primary hypertension I10 Hypertension type: primary hypertension Bilateral cellulitis of lower leg L03.116; L03.115
[2024-08-26 09:37] LABS: Glucose Point of Care 79 mg/dL (70-110)
--- NOTE | 2024-08-26 10:05 | PC.NURSE ---
Dr Burnette at bedside performing nerve block. Pt indicates understanding. Denies questions or needs at this time. Dr Burnette informed of pt's BG of 79. Surgery staff at bedside to transport pt to surgery.
--- NOTE | 2024-08-26 10:22 | ANES.PREANE2 ---
Pre-Anesthetic Assessment Height/Weight: Height 5 ft 9 in Weight 245 lb 13.047 oz Temp Pulse Resp BP Pulse Ox O2 Del Method O2 Flow Rate 98.2 F 78 9 L 144/87 92 BiPAP 4 08/26/24 00:00 08/26/24 09:00 08/26/24 09:00 08/26/24 09:00 08/26/24 09:00 08/26/24 04:45 08/25/24 13:30 FiO2 30 08/26/24 08:30 Preop Diagnosis: Osteomyelitis Operation Date: 08/26/24 10:05 Proposed Procedures p Incision And Drainage Incision of Bone Cortex(Left) - Raymon Burton DPM s Debridement-left foot kenan stasis(Left) - Raymon Burton DPM Social No alcohol and No tobacco Exam alert, oriented x 3 and regular rate & rhythm Airway Comments: Comments: BiPAP in place Anesthetic Plan ASA status: 4 Anesthesia: MAC Other: No prior issues with anesthesia NPO since yesterday Patient was admitted on with recurrent osteomyelitis of lower extremity and CHF exacerbation. Patient has been on antibiotics for the past 5 months with prior debridement Recent echo showing EF of 15% Patient is currently on BiPAP with a EPAP of 8 Labs from today reviewed and acceptable for procedure. pCO2 on ABG showing 52.2 which is improved from the last few days Discussed with patient that he is too high risk to receive anesthesia from us today. Will plan on popliteal block for pain control with monitored anesthesia care during procedure Plan for popliteal block Medications/Allergies Home Medications ?Medication ?Instructions ?Recorded ?Confirmed ?Last Taken ?Type aspirin 81 mg tablet,delayed 81 mg PO DAILY #30 tabs 06/17/24 08/23/24 06/23/24 Rx release sodium hypochlorite 0.125 % 1 applic topical DAILY #473 mL 07/09/24 08/23/24 Unknown Rx solution (Dakin's Solution) carvedilol 6.25 mg tablet 6.25 mg PO BID #60 tabs 08/14/24 08/23/24 Unknown Rx dapagliflozin propanediol 10 mg 10 mg PO DAILY #30 tabs 08/14/24 08/23/24 Unknown Rx tablet (Farxiga) furosemide 40 mg tablet 40 mg PO DAILY@0800 #30 tabs 08/14/24 08/23/24 Unknown Rx sacubitril 24 mg-valsartan 26 mg 1 tab PO BID #30 tabs 08/14/24 08/23/24 Unknown Rx tablet (Entresto) Allergies Allergy/AdvReac Type Severity Reaction Status Date / Time No Known Allergies Allergy Verified 08/23/24 11:26 Current Medications Generic Name Dose Route Start Last Admin Trade Name Freq PRN Reason Stop Dose Admin Aspirin 81 mg 08/25/24 09:00 08/25/24 08:51 Aspirin 81 Mg Ec Tablet PO 81 mg DAILY AMBER Administration Ciprofloxacin HCl 1 drop 08/24/24 17:00 08/26/24 08:29 Ciprofloxacin 0.3% Op Soln 2.5 Ml Btl EYE-BOTH 1 drop QID AMBER Administration Protocol Collagenase 1 applic 08/24/24 11:45 08/25/24 12:49 Collagenase Oint 30 Gm TOPICAL Not Given DAILY AMBER Glucagon 1 mg 08/24/24 20:08 08/25/24 03:05 Glucagon 1 Mg/Ml Kit 1 Ml IM 1 mg Q15M PRN Administration HYPOGLYCEMIA Heparin Sodium (Porcine) 5,000 unit 08/24/24 09:00 08/25/24 21:47 Heparin 5,000 Unit/Ml Inj 1 Ml SUBCUT 5,000 unit Q12H AMBER Administration Dexmedetomidine/Sodium Chloride 400 mcg in 100 mls @ 0 mls/hr 08/24/24 16:45 08/24/24 19:30 Precedex IV 0 mcg/kg/hr .Q0M AMBER 0 mls/hr Titration Protocol Per Protocol Furosemide 200 mg/ Sodium 100 mls @ 0 mls/hr 08/24/24 17:30 08/26/24 00:08 Chloride IV 10 mg/hr .Q0M AMBER 5 mls/hr Administration Protocol As Directed Dextrose 1,000 mls @ 50 mls/hr 08/24/24 20:30 08/25/24 15:42 D10w IV Not Given .Q20H AMBER Meropenem 1,000 mg 08/24/24 14:00 08/26/24 05:12 Meropenem 1,000 Mg Sdv IVP 1,000 mg Q8H AMBER Administration Protocol Morphine Sulfate 2 mg 08/24/24 16:36 08/26/24 00:07 Morphine 4 Mg/Ml Sdv 1 Ml IVP 2 mg Q6H PRN Administration SEVERE PAIN Pantoprazole Sodium 40 mg 08/24/24 09:00 08/26/24 08:[address] 40 Mg Tablet PO 40 mg DAILY AMBER Administration Additional Medication Information Laboratory Last Values WBC 10.15 10^3/uL (3.29-11.43) 08/26/24 02:36 RBC 3.79 10^6/uL (3.85-5.65) L 08/26/24 02:36 Hgb 10.20 g/dL (11.27-16.99) L 08/26/24 02:36 Hct 34.7 % (37-53) L 08/26/24 02:36 MCV 91.6 fl (82-101) 08/26/24 02:36 MCH 26.9 pg (27-33) L 08/26/24 02:36 MCHC 29.4 g/dL (30-55) L 08/26/24 02:36 RDW 17.2 % (12.1-15.1) H 08/26/24 02:36 Plt Count 229 10^3/cmm (157-399) 08/26/24 02:36 MPV 9.6 fL (7.4-10.4) 08/26/24 02:36 Neut % (Auto) 82.4 % 08/26/24 02:36 Lymph % (Auto) 6.2 % 08/26/24 02:36 [place] % (Auto) 10.2 % 08/26/24 02:36 Eos % (Auto) 0.0 % 08/26/24 02:36 Baso % (Auto) 0.9 % 08/26/24 02:36 Neut # (Auto) 8.36 10^3/uL (1.8-7.7) H 08/26/24 02:36 Lymph # (Auto) 0.6 10^3/uL (0.8-4.8) L 08/26/24 02:36 [place] # (Auto) 1.0 10^3/uL (0.2-0.9) H 08/26/24 02:36 Eos # (Auto) 0.0 10^3/uL (0.0-0.8) 08/26/24 02:36 Baso # (Auto) 0.1 10^3/uL (0.0-0.1) 08/26/24 02:36 Nucleated RBC % (auto) 0 % 08/26/24 02:36 Nucleated RBCs # 0.0 /100WBC 08/26/24 02:36 Specimen Type Arterial 08/26/24 03:56 Sample Site Radial, right 08/26/24 03:56 ABG pH 7.39 (7.35-7.45) 08/26/24 03:56 ABG pCO2 52.2 mmHg (35-45) H 08/26/24 03:56 ABG pO2 84.0 mmHg (80.0-100.0) 08/26/24 03:56 ABG PO2/FiO2 Ratio 280 08/26/24 03:56 ABG HCO3 31.3 mmol/L (22-26) H 08/26/24 03:56 ABG O2 Saturation 98.6 08/25/24 10:16 ABG Base Excess 5.3 mmol/L (-2.0-2.0) H 08/26/24 03:56 Shawn Test Pos 08/26/24 03:56 A-a O2 Gradient 10.1 mmHg (5-10) H 08/25/24 10:16 Hematocrit 32.5 % (42-52) L 08/26/24 03:56 Hgb O2 Saturation 95.9 % (95-100) 08/25/24 10:16 Carboxyhemoglobin 1.8 %THgb (0.4-20.1) 08/25/24 10:16 Methemoglobin 0.9 % (0.4-1.5) 08/25/24 10:16 Total Hemoglobin 10.8 g/dL (14-18) L 08/25/24 10:16 Sodium 141.0 mmol/L (131-143) 08/25/24 10:16 Potassium 3.6 mmol/L (3.5-5.0) 08/25/24 10:16 Glucose 124.0 mg/dL (70-115) H 08/25/24 10:16 Ionized Calcium 1.2 mmol/L (1.1-1.4) 08/25/24 10:16 O2 Delivery Device Bipap 08/26/24 03:56 O2 Liters/Min 4.0 % 08/25/24 10:16 FiO2 30.0 % 08/26/24 03:56 Tidal Volume 0.55 08/26/24 03:56 PEEP 8.0 cmH20 08/26/24 03:56 Engraving Supervisor ID [email or web address] 08/26/24 03:56 Sodium 142 mmol/L (136-145) 08/26/24 02:36 Potassium 3.6 mmol/L (3.5-5.1) 08/26/24 02:36 Chloride 104 mmol/L (98-107) 08/26/24 02:36 Carbon Dioxide 28 mmol/L (22-29) 08/26/24 02:36 Anion Gap 13.6 (5-19) 08/26/24 02:36 BUN 27 mg/dL (8-23) H 08/26/24 02:36 Creatinine 1.6 mg/dL (0.7-1.2) H 08/26/24 02:36 GFR Calculation 43.6 mL/min (90-130) L 08/26/24 02:36 Glucose 105 mg/dL (65-115) 08/26/24 02:36 POC Glucose 93 mg/dL (70-110) 08/25/24 22:37 Estimat Average Glucose 114 08/23/24 12:37 Hemoglobin A1c 5.6 % (4.0-6.0) 08/23/24 12:37 Calculated Osmolality 299 mOsm/kg (285-295) H 08/26/24 02:36 Lactic Acid 2.1 mmol/L (0.5-2.2) 08/23/24 15:20 Lactic Acid (Sepsis) 2.1 mmol/L (0.5-2.2) 08/23/24 18:41 Calcium 8.1 mg/dL (8.5-10.5) L 08/26/24 02:36 Total Bilirubin 1.1 mg/dL (0.15-1.2) 08/26/24 02:36 AST 15 U/L (0-40) 08/26/24 02:36 ALT 9 U/L (0-41) 08/26/24 02:36 Alkaline Phosphatase 134 U/L (40-130) H 08/26/24 02:36 NT-Pro-B Natriuret Pep 5959 pg/mL (0-125) H 08/24/24 20:51 Total Protein 5.5 g/dL (6.6-8.7) L 08/26/24 02:36 Albumin 3.0 g/dL (3.5-5.2) L 08/26/24 02:36 Globulin 2.5 g/dL (1.3-4.6) 08/26/24 02:36 Urine Color Dark yellow (Yellow) A 08/23/24 14:46 Urine Appearance Clear (CLEAR) 08/23/24 14:46 Urine pH 5.5 (5-7) 08/23/24 14:46 Ur Specific Ray 1.026 (1.005-1.030) 08/23/24 14:46 Urine Protein 2+ (Negative) A 08/23/24 14:46 Urine Glucose (UA) Negative (Normal) 08/23/24 14:46 Urine Ketones Trace (Negative) 08/23/24 14:46 Urine Blood Negative (Negative) 08/23/24 14:46 Urine Nitrate Negative (Negative) 08/23/24 14:46 Urine Bilirubin 1+ (Negative) H 08/23/24 14:46 Urine Urobilinogen 2.0 mg/dL (Negative) H 08/23/24 14:46 Ur Leukocyte Esterase Negative (Negative) 08/23/24 14:46 Urine RBC 3-5 /hpf (0-2) 08/23/24 14:46 Urine WBC 0-5 /hpf (0-5) 08/23/24 14:46 Ur Squamous Epith Cells 0-5 /hpf (0-5) 08/23/24 14:46 Calcium Oxalate Crystal 0-4 /hpf H 08/23/24 14:46 Amorphous Sediment 1+ /hpf 08/23/24 14:46 Urine Bacteria Trace /hpf (NONE) 08/23/24 14:46 Hyaline Casts 1.65 /lpf 08/23/24 14:46 Vancomycin Trough 25.0 ug/mL (10-15) H 08/26/24 06:02 [facility] Anesthesia Medical History (Updated 08/26/24 @ 08:31 by Marylu Nick MD) Hypertension Chronic wound of extremity HFrEF (heart failure with reduced ejection fraction) Hypertensive urgency BMI 37.0-37.9, adult Lower extremity edema Third degree heart block Status post pacemaker placement, 2024 [facility] Congestive heart failure Gout Immunization counseling Seropositive rheumatoid arthritis of multiple sites Surgical History History of hernia repair Family History Mother Cancer breast Father Cancer non hodgkins lymphoma Other CAD (coronary artery disease) Diabetes Family history of premature coronary artery disease Denies family history of Rheumatoid arthritis Lupus Hyperlipidemia Chronic kidney disease (CKD) Lung disease Hypertension Stroke Social History Smoking and tobacco/nicotine status: never used tobacco/nicotine Alcohol intake: never Substance/Drug Use: never Lives independently: Yes Marital status: Single Number of children: 1 Current occupational status: retired Special jennifer needs: No Agree to transfusion: Yes Data Anesthesia 08/26/24 02:36 08/26/24 02:36 Short CBC 08/25/24 08/26/24 Range/Units 04:16 02:36 WBC 8.82 10.15 (3.29-11.43) 10^3/uL Hgb 10.60 L 10.20 L (11.27-16.99) g/dL Hct 36.6 L 34.7 L (37-53) % MCV 93.6 91.6 (82-101) fl Plt Count 249 229 (157-399) 10^3/cmm Neut % (Auto) 81.5 82.4 % Neut # (Auto) 7.19 8.36 H (1.8-7.7) 10^3/uL BMP 08/24/24 08/25/24 08/25/24 20:51 04:16 20:28 Sodium 144 143 142 Potassium 4.5 4.4 4.0 Chloride 108 H 107 104 Carbon Dioxide 27 24 27 BUN 25 H 25 H 26 H Creatinine 1.7 H 1.5 H 1.6 H Glucose 141 H 87 114 Calcium 8.2 L 8.2 L 8.0 L 08/26/24 02:36 Sodium 142 Potassium 3.6 Chloride 104 Carbon Dioxide 28 BUN 27 H Creatinine 1.6 H Glucose 105 Calcium 8.1 L Cardiac Enzymes 08/24/24 Range/Units 20:51 NT-Pro-B Natriuret Pep 5959 H (0-125) pg/mL Liver Function 08/25/24 08/25/24 08/26/24 Range/Units 04:16 20:28 02:36 Total Bilirubin 1.2 1.0 1.1 (0.15-1.2) mg/dL AST 21 13 15 (0-40) U/L ALT 12 10 9 (0-41) U/L Alkaline Phosphatase 157 H 142 H 134 H (40-130) U/L Albumin 3.2 L 3.1 L 3.0 L (3.5-5.2) g/dL ABG 08/24/24 08/24/24 08/24/24 12:00 15:19 19:50 Specimen Type Arterial Arterial Arterial Sample Site Radial, left Radial, left Radial, right ABG pH 7.23 L 7.27 L 7.23 L ABG pCO2 65.9 H* 56.1 H 65.7 H* ABG pO2 97.6 112.0 H 159.0 H ABG PO2/FiO2 Ratio 305 373 318 ABG HCO3 27.3 H 25.9 27.2 H ABG O2 Saturation 97.3 ABG Base Excess -1.4 -1.5 -1.3 A-a O2 Gradient 6.6 O2 Delivery Device Nc Bipap Bipap O2 Liters/Min 3.0 FiO2 32.0 30.0 50.0 Tidal Volume PEEP 08/25/24 08/25/24 08/26/24 04:10 10:16 03:56 Specimen Type Arterial Arterial Arterial Sample Site Radial, right Radial, left Radial, right ABG pH 7.29 L 7.27 L 7.39 ABG pCO2 56.9 H 61.3 H* 52.2 H ABG pO2 138.0 H 104.0 H 84.0 ABG PO2/FiO2 Ratio 345 288 280 ABG HCO3 27.2 H 28.0 H 31.3 H ABG O2 Saturation > 99.1 98.6 ABG Base Excess -0.1 0.1 5.3 H A-a O2 Gradient 10.0 10.1 H O2 Delivery Device Bipap Nc Bipap O2 Liters/Min 4.0 FiO2 40.0 36.0 30.0 Tidal Volume 0.55 0.55 PEEP 8.0 8.0 Cardiac Studies: Echocardiogram 04/24/24 Echocardiogram Limited Views 06/11/24
--- NOTE | 2024-08-26 10:25 | ANES.PROC ---
Anesthesia Procedures Procedure/Date: 08/26/24 Nerve Block ^: Nerve Block 1: Time Out Performed: Yes Consent: requested by attending/covering physician and from patient Nerve block location: popliteal Anesthesia monitors applied: pulse oximetry, EKG, BP cuff and oxygen Nerve block position: supine Anesthetic Used: ropivicaine 0.5% Amount of anesthesia used (mL): 30 Ultrasound used to: recognize landmarks Nerve Stimulator Used?: Yes Interscalene/Femoral BLK: other needle (pjunk 4inch) Injection: neg aspiration of heme Patient Tolerated Procedure: well Complications: none Additional Comments: Decadron 4 mg added to block. Timeout performed with ICU nurse
--- NOTE | 2024-08-26 10:31 | PC.NURSE ---
1030 dr azevedo injected 5ml 0.5% sensorcaine plain into left foot
--- NOTE | 2024-08-26 10:55 | W.PM.BPON ---
Date of procedure:08/26/24 Surgeon name: Delmar MercedesPKamini Certification And Selection Specialist(s) name(s): Miguel Procedure(s) performed: Incision bone cortex left second metatarsal, debridement venous stasis ulcerations left lower extremity Description of findings: Osteomyelitis second metatarsal head fibrotic wound bed to venous stasis ulcerations left leg Estimated blood loss: 5cc Tourniquet time: No tourniquet used Specimen(s) removed: Left second metatarsal Post-operative diagnosis: Osteomyelitis second metatarsal head, venous stasis ulcerations left foot
--- NOTE | 2024-08-26 10:57 | P.OP_ITS ---
Operative Report Date of procedure: August 26, 2024 Surgeon: Raymon Burton DPM Procedure: Date of procedure: 08/26/2024 Pre-op diagnosis: 1. Osteomyelitis left second metatarsal 2. Venous stasis ulcerations left leg Post-op diagnosis: Same Post-op findings: Degenerative changes of second metatarsal head consistent with osteomyelitis. Venous stasis ulcerations left leg down to level of fascia Procedure done: 1. Incision bone cortex left second metatarsal CPT 77265 2. Excisional wound debridement left leg down to level of fascia (42.67cm^2) 02090, 13212 Implants: None Specimens removed: Second metatarsal left foot Surgeon: Dr. Raymon Burton DPM Mill Operator Head: Miguel Estimated blood loss: 5 cc Tourniquet time: No tourniquet used Complications: None The patient presents with a severe foot infection involving left second metatarsal head at second digit amputation site, characterized by erythema, swelling, and drainage. The infection is complicated by underlying conditions, including diabetes, PVD, CHF which have contributed to the progression of the infection despite conservative management. Preoperative imaging and laboratory results indicate osteomyelitis, necessitating surgical intervention. In addition to osteomyelitis of second metatarsal head patient has multiple chronic venous stasis ulcerations left leg with mixed fibrogranular wound bed. The planned procedure is intended to address the infection, debride necrotic tissue, and, if necessary, assess the viability of surrounding structures to prevent further complications. The patient has been NPO since midnight. The history has been reviewed and the history and physical is current. The signed consent was confirmed and placed in the patient chart. Patient imaging has been reviewed and is consistent with the diagnosis. Under mild sedation, the patient was brought into the operating room and placed on the table in the supine position. Patient is receiving antibiotics around the clock on the floor, Therefore, additional antibiotic prophylaxix was not administered. Due to patient risk factors anesthesia was not administered for case. Patient did receive a popliteal block to the left lower extremity prior to procedure. The left lower extremity was then prepped and draped in standard fashion. After preparation, the following procedure was then performed. Attention was directed to the left foot where a 4 cm incision was made overlying the second metatarsal. This was performed using a #15 blade. Dissection was carried down to the level of sec metatarsal. This was exposed visualized the discolored degenerative changes at the site metatarsal head consistent with osteomyelitis. Sagittal bone saw was used to resect the distal aspect of the second metatarsal. It was then passed from the operative field to be sent as specimen. Cultures were also obtained at this point and sent to micro for ID and sensitivity. Remaining tissue appeared healthy and viable. Site was irrigated with sterile saline before attention was directed to closure. Incision was closed with 2-0 nylon in horizontal mattress fashion. Attention was then directed to the proximal leg wounds of the left leg. Multiple full-thickness ulcerations to the left leg were noted. They are as follows. Left anterior proximal wound measuring 7.0 x 4.5 x 0.3 cm Left proximal medial wound measuring 1.0 x 1.8 x 0.1 cm Left medial distal wound measuring 0.8 x 0.6 x 0.2 cm Left lateral wound measuring 2.1 x 0.9 x 0.2 cm Left posterior leg wound measuring 2.5 x 2.8 x 0.4 cm Excisional curette debridement was carried down to the level of deep fascia with each of these wounds. Care was taken to debride necrotic and nonviable tissue. Healthy bleeding wound beds were noted at all wounds after debridement. Incision site was dressed with Xeroform, 4 x 4 gauze, Kerlix. Left leg wounds were dressed with saline wet-to-dry. All wounds were then wrapped with Kerlix and compressive bandage. The patient tolerated the procedure and anesthesia well and without complication. The patient was transported from the operating room to the recovery room with vital signs stable and vascular status intact to all digits of the left foot. Thepatient was instructed to remain weightbearing as tolerated to the operative extremity, to keep surgical dressing clean, dry and intact. The patient will be transferred back to the floor once anesthesia criteria is met. I will continue to round on and follow the patient in the inpatientsetting and provide recommendations to stabilize the patient for discharge.
--- NOTE | 2024-08-26 11:05 | ANE.PACU2 ---
Inpatient post-anesthesia follow up: Airway intact: Yes Vital signs: Temperature 98.2 F Pulse Rate 102 Respiratory Rate 31 Blood Pressure 128/85 Pulse Oximetry 94 Oxygen Delivery Me thod [ Room Air Current Rate & Del karen] Oxygen Delivery Me thod BiPAP Oxygen Flow Rate 4 Fraction of Inspir ed Oxygen 30 Hydration adequate: Yes Nausea and vomiting: No Pain level: 1 Mental status: Baseline
[2024-08-26 11:14] LABS: Glucose Point of Care 84 mg/dL (70-110)
[2024-08-26] MEDS: collagenase oint 30 gm 1 APPLIC TOPICAL (11:17)
[2024-08-26] MEDS: aspirin 81 mg EC Tablet PO (11:18)
[2024-08-26] MEDS: heparin 5,000 unit/mL INJ 1 mL 5000 UNIT SUBCUT ×2 (11:18→20:45)
--- NOTE | 2024-08-26 14:17 | PM.PN ---
Subjective Subjective: Patient seen after surgery today where he underwent debridement of the left second metatarsal and left lower extremity wounds by Dr. Burton. Doing well. Does remain on Lasix drip. Not requiring continuous BiPAP though is on 4 L by nasal cannula. Hungry today. No nausea or vomiting. Vitals/I&O/Wt Last Vital Signs Temp 98.2 F 08/26/24 00:00 Pulse 100 08/26/24 13:00 Resp 21 H 08/26/24 13:00 BP 136/81 08/26/24 13:00 O2 Flow Rate 4 08/25/24 13:30 FiO2 30 08/26/24 08:30 08/25/24 08/26/24 08/26/24 22:59 06:59 14:59 Intake Total 480 / 1202 98.667 / 1300.667 180 / 180 Output Total 3400 / 4900 2700 / 7600 3950 / 3950 Balance -2920 / -3698 -2601.333 / -6299.333 -3770 / -3770 Cumulative I&O 08/23/24 12:10 thru 08/26/24 14:00 Intake Total 4491.524 Output Total 85115 Balance -13528.476 Weight last 48 hrs Weight 111.5 kg Weight 118.252 kg Physical Exam Narrative: Patient is asleep but easily arousable. Able to provide history. Right eye mildly red, no drainage. Oropharynx with slightly dry mucous membranes. Neck is supple. Lungs are decreased breath sounds at bases, no wheezes, scattered crackles. Cardiovascular exam reveals tachycardic regular rhythm abdomen is soft. Marsh is noted in place. Dressings are intact to both lower extremities. The left second toe dressing with some bright red blood noted. Urinary Catheter Management: Marsh: Cath Placed During This Visit: yes Reason for Continuing Indwelling Catheter: Accurate Measurement of Urinary Output in Critically Ill Patients Urinary Catheter Date of Insertion: 08/24/24 Urinary Catheter Time of Insertion: 04:54 Data 08/26/24 02:36 08/26/24 02:36 A&P Assessment and plan (1) Osteomyelitis of foot: Currently on meropenem day 1 and vancomycin day 3. Status post debridement including bone cortex 08/26. - Follow up pending cultures - PICC line - Anticipate 6 weeks IV antibiotics given chronicity of wounds, development of osteomyelitis and comorbid conditions, implanted devices - Plan of care discussed with Dr Burton - Review of records shows that patient was treated with daptomycin and Zosyn in the past Qualifiers: Osteomyelitis type: subacute Laterality: left Qualified Code(s): M86.272 - Subacute osteomyelitis, left ankle and foot (2) Bilateral leg ulcer: Longstanding venous stasis ulcers, worse on the left than the right. Status post debridement left lower extremity 08/26, right lower extremity healing with medical management at this time - Continue wound care Qualifiers: Non-pressure ulcer stage: with necrosis of muscle Qualified Code(s): L97.913 - Non-pressure chronic ulcer of unspecified part of right lower leg with necrosis of muscle; L97.923 - Non-pressure chronic ulcer of unspecified part of left lower leg with necrosis of muscle (3) Acute exacerbation of CHF (congestive heart failure): Ejection fraction 15% consistent with systolic heart failure/heart failure with reduced ejection fraction chronically. Normally on Entresto and oral Lasix, in addition to dapaglifozin. Presently acutely exacerbated and has been on Lasix drip. No longer requiring continuous BiPAP therapy today, remains on 4L bnc. Electrolytes stable as his renal function. - Continue Lasix drip today given continued good diuresis and stable renal function, vital signs - Cardiology following - Anticipate change to intermittent lasix IV soon - Need to consider resuming entresto when able - Marsh catheter for close monitoring of urine output Qualifiers: Heart failure type: systolic Qualified Code(s): I50.23 - Acute on chronic systolic (congestive) heart failure (4) Status post debridement: Underwent debridement of left lower extremity wounds by Dr. Burton 08/26. Right lower extremity wounds are healing and did not require debridement at this time. Debridement included right second metatarsal and findings consistent with osteomyelitis. - Follow-up cultures from surgery 08/26/24 - Dressing changes as per Dr Burton - Pain control (5) Bilateral cellulitis of lower leg: Longstanding stasis wounds with intermittent cellulitis - Management for osteomyelitis and ulcerations should be adequate (6) Abscess of left foot: At left foot, 2nd metatarsal - Management as elsewhere noted (7) Type 2 diabetes mellitus: Chronically on dapagliflozin. A1c had been as high as 7 though most rcent this month at 5.6 - Not currently requiring insulin but will need to watch post procedure to ensure healing - Dapaglifozin held while in hospital Qualifiers: Diabetes mellitus complication detail: with peripheral angiopathy without gangrene Diabetes mellitus complication status: with circulatory complication Diabetes mellitus termination clerk insulin use: without termination clerk use Qualified Code(s): E11.51 - Type 2 diabetes mellitus with diabetic peripheral angiopathy without gangrene (8) Chronic kidney disease: At baseline looks to have chronic kidney disease stage IIIa. Currently with diuresis approaching stage IIIb, which may be a more accurate reflection of baseline going forward. - Monitor renal function and urine output closely Qualifiers: Chronic kidney disease stage 3 subtype: stage 3a (GFR 45-59) Chronic kidney disease stage: stage 3 (moderate) Qualified Code(s): N18.31 - Chronic kidney disease, stage 3a (9) S/P placement of cardiac pacemaker: Jun 2024 at [facility] secondary to complete heart block - Aware (10) Red eye: Present on admission, right eye, treated with Cipro ophthalmologic drops - Continue eyedrops as ordered (11) PICC (peripherally inserted central catheter) in place: Placed 08/26/2024 for planned long-term IV antibiotics in the outpatient setting Plan 08/23/24 64-year-old male currently admitted with chief complaints of worsening lower extremity wounds Patient has open wounds of the right tibial chowdhury, noted to have puslike drainage. Additional wounds over noted over the left and right foot. Over the left foot there is an area of past-pointing and drainage in the second metatarsal space. Obtain CT evaluation of bilateral lower extremities and feet to assess for underlying osteomyelitis. Blood cultures taken in the emergency room. Start piperacillin/tazobactam and vancomycin empirically. Based on CT results, will likely need podiatry and general surgery assessments. Of note surgical service is not available at the hospital until August 25, 2024. [facility] patient is not showing signs of sepsis, will start iv abx and monitor closely. lasix 40mg iv q12h for acute on chronic CHF exacerbation monitor urine output and creatinine closely 08/24/24 Patient noted to be in hypercapneic respiratory acidosis. Placed on Bipap, serial ABG to be checked. CT findings as above with left metatarsal osteomyelitis and abscess. Right foot tenosynovitis cellulitis and open wound. Podiatry consulted, appreciate recommendations. Plan for OR intervention early next week. May need general anesthesia. Cardiology consult for pre op cardiac risk assessment. His current significant comorbidities include CHF exacerbation, nonischemic cardiomyopathy with ejection fraction of 15%. Currently has defibrillator in place. Patient had 6 beat run of V. tach today. Resume home dose of carvedilol 6.25 mg p.o. twice daily. Continue insulin sliding scale. Priro cx data reviewed, Achromobacter has variable susceptibility most recent isolate noted sensitivity to piperacillin/tazobactam, however prior to isolates reported resistant. Will switch Zosyn to meropenem 1 g IV every 8 hours. Continue vancomycin. To obtain cultures with OR debridement. Anticipate patient will need 4 to 6 weeks of IV antibiotics for osteomyelitis. Will plan on PICC line placement once blood cultures are negative for 48 hours. 08/25/24 Improving mentation today, He is awake alert and conversant this morning. Hypoglycemic overnight. Now that mentation is better, okay to resume diet. Patient states he does not have a Bipap but an 02 concentrator at home and uses intermittent 02 when he feels SOB. He wonders if he will benefit from a Bipap at home. HE continues to be on a lasix drip, diuresing well, currently net negative by 2L this morning. renal function stable with cr at 1.5. Continue lasix drip per cardiology recommendation. No chest pain. Continue iv abx inculding meropenem and vancomycin. Planned for OR intervention tomorrow, likely under local anesthesia/ nerve block as he is poor candidate for general anesthesia. He will need 6 weeks of iv abx for osteomyelitis of left metatarsal and right tibia showing signs of tenosynovitis, early osteomyelitis. Abx to be decided based on cultures from OR. Picc line to facilitate above. Discussed with patient that he will be best served by transitioning to SNF for daily rigorous wound care, daily iv abx, Picc line care. HE lives alone and has no assistance. He is hesitant to move to SNF as he fears he will have squatters on his property like the last time he was in SNF. He is agreeable to move to SNF if he can have police check in on his home from time to time. Will discuss disposition planning with case management. 08/26/24 Underwent surgical debridement today by Dr. Burton. Culture sent for osteomyelitis of the second metatarsal. Right lower extremity wounds did not require acute debridement though left lower extremity wounds were debrided. Dressings are in place and wound care will continue. Remains on Lasix drip but is off of BiPAP continuously today. Requiring 4 L of oxygen by nasal cannula. Short of breath still but not near like he had been. PICC line was placed today for planned 6 weeks of IV antibiotics given implanted devices and development of osteomyelitis despite other management that has included recurrent debridement and previous IV antibiotics. Plan is still for consideration of skilled placement at discharge. Hopefully we will be able to transition him to intermittent IV Lasix tomorrow and maintain. Has chronic kidney disease stage IIIa potentially 3B. VTE prophylaxis: Subcu heparin GI Prophylaxis: On a PPI here, not on at home Antibiotics: Merrem and Vanco Pending studies:Cultures from surgery 08/26 and blood cultures 08/23 Telemetry: Ordered Marsh: Ordered due to Lasix drip Line(s): peripheral IVs and PICC line Disposition plan: Anticipate skilled placement at discharge with 6 weeks total IV antibiotics, PICC line and wound care management. Has requested notifying authorities that he will not be at his property so they can check on it for him. Code Status: Full Code Supportive care otherwise Findings, concerns and plans were discussed with patient and he was given an opportunity to ask questions Also reviewed plan of care with nursing PDMP PDMP Reviewed: Not Reviewed Attestations Medical Necessity Statement*: Requires ongoing medical care in the inpatient setting including in the ICU due to need for diuresis and high risk for postoperative complications given comorbidities and acute issues as discussed above Coding Level of Care Code Acute Code for [facility] Diagnoses Subacute osteomyelitis of left foot M86.272 Osteomyelitis type: subacute Laterality: left Ulcers of both lower extremities with necrosis of muscle L97.913; L97.923 Non-pressure ulcer stage: with necrosis of muscle Acute on chronic systolic congestive heart failure I50.23 Heart failure type: systolic Status post debridement Z98.890 Bilateral cellulitis of lower leg L03.116; L03.115 Abscess of left foot L02.612 Type 2 diabetes mellitus with diabetic peripheral angiopathy without gangrene, without long-term current use of insulin E11.51 Diabetes mellitus complication detail: with peripheral angiopathy without gangrene Diabetes mellitus complication status: with circulatory complication Diabetes mellitus long-term insulin use: without termination clerk use Stage 3a chronic kidney disease N18.31 Chronic kidney disease stage 3 subtype: stage 3a (GFR 45-59) Chronic kidney disease stage: stage 3 (moderate) S/P placement of cardiac pacemaker Z95.0 Red eye H57.89 PICC (peripherally inserted central catheter) in place Z45.2
--- NOTE | 2024-08-26 15:09 | PC.SOCIAL ---
IMM Updated Updated pt on IMM. No questions voiced. Provided pt a copy. Initialed, dated, & timed a copy & placed in chart.
[2024-08-26] MEDS: vancomycin 1,250 MG/250 ML PIGGYBACK 200 MG IV (16:27)
[2024-08-26 18:02] LABS: Glucose Point of Care 127 mg/dL (70-110)
[2024-08-26] MEDS: FUROsemide 10 mg/mL SDV 4mL 40 MG IVP (19:54)
[2024-08-26 21:06] LABS: Glucose Point of Care 135 mg/dL (70-110)
[2024-08-27] VITALS (48 sets, daily range): BP systolic 108–160; BP diastolic 60–94; PULSE 73–108; RESP 10–26; TEMP 36.8–36.9; O2SAT 80–99
[2024-08-27] MEDS: meropenem 1,000 mg SDV 1000 MG IVP ×3 (00:17→16:21)
[2024-08-27] MEDS: morphine 4 mg/mL SDV 1 mL 2 MG IVP ×2 (02:34→13:54)
[2024-08-27 05:57] LABS: Basophils # 0.1 10^3/uL (0.0-0.1); Basophils % 0.8 %; Eosinophils % 0.1 %; Hematocrit 34.4 % (37-53); Lymphocytes # 0.9 10^3/uL (0.8-4.8); Lymphocytes % 8.7 %; Mean Corpuscular HGB Conc 30.5 g/dL (30-55); Mean Corpuscular Hemoglobin 26.1 pg (27-33); Mean Corpuscular Volume 85.4 fl (82-101); Mean Platelet Volume 9.4 fL (7.4-10.4); Monocytes # 1.4 10^3/uL (0.2-0.9); Monocytes % 13.2 %; Neutrophils # 7.89 10^3/uL (1.8-7.7); Neutrophils % 76.8 %; Nucleated Red Blood Cells % 0 %; Platelet Count 268 10^3/cmm (157-399); Red Blood Count 4.03 10^6/uL (3.85-5.65); Red Cell Distribution Width 17.2 % (12.1-15.1); White Blood Count 10.26 10^3/uL (3.29-11.43)
[2024-08-27] MEDS: FUROsemide 10 mg/mL SDV 4mL 40 MG IVP ×2 (06:13→16:21)
[2024-08-27 06:25] LABS: Anion Gap 13.1 (5-19); Blood Urea Nitrogen 24 mg/dL (8-23); Carbon Dioxide 34 mmol/L (22-29); Chloride 99 mmol/L (98-107); Creatinine Clr Calc Pharmacy 82.4053; Glomerular Filtration Rate 67.2 mL/min (90-130); Glucose 109 mg/dL (65-115); Magnesium 1.6 mg/dL (1.7-2.3); Osmolality Calculated 301 mOsm/kg (285-295); Phosphorus 2.4 mg/dL (2.5-4.5); Potassium 3.1 mmol/L (3.5-5.1); Sodium 143 mmol/L (136-145)
[2024-08-27] MEDS: heparin 5,000 unit/mL INJ 1 mL 5000 UNIT SUBCUT ×2 (09:06→20:39)
[2024-08-27] MEDS: aspirin 81 mg EC Tablet PO (09:06)
[2024-08-27] MEDS: pantoprazole DR 40 mg Tablet PO (09:06)
[2024-08-27] MEDS: potassium chloride ER 20 mEq Tablet PO ×2 (09:06→13:55)
[2024-08-27] MEDS: ciprofloxacin 0.3% Op Soln 2.5 mL Btl 1 DROP EYE-BOTH ×4 (09:13→21:05)
[2024-08-27] MEDS: collagenase oint 30 gm 1 APPLIC TOPICAL (09:13)
--- NOTE | 2024-08-27 10:08 | P.CONIM_ITS ---
Providers/Reason For Consult 2 Attending Physician: Margo Hernandez MD Primary Care Provider: Itz Pierson MD History of Present Illness History of Present Illness Ely Hare is a 64 year old male Medications/Allergies Home Medications ?Medication ?Instructions ?Recorded ?Confirmed ?Last Taken ?Type aspirin 81 mg tablet,delayed 81 mg PO DAILY #30 tabs 0 06/17/24 08/23/24 06/23/24 Rx release sodium hypochlorite 0.125 % 1 applic topical DAILY #47 3 mL 07/09/24 08/23/24 Unknown Rx solution (Dakin's Solution) carvedilol 6.25 mg tablet 6.25 mg PO BID #60 tabs 01/3008/23/24 Unknown Rx dapagliflozin propanediol 10 mg 10 mg PO DAILY #30 tab s 08/14/24 08/23/24 Unknown Rx tablet (Farxiga) furosemide 40 mg tablet 40 mg PO DAILY@0800 #30 tabs 08/14/24 08/23/24 Unknown Rx sacubitril 24 mg-valsartan 26 mg 1 tab PO BID #30 tabs 08/14/24 08/23/24 Unknown Rx tablet (Entresto) Allergies Allergy/AdvReac Type Severity Reaction Status Date / Time No Known Allergies Allergy Verified 08/23/24 11:26 Current Medications Generic Name Dose Route Start Last Admin Trade Name Freq PRN Reason Stop Dose Admin Aspirin 81 mg 08/25/24 09:00 08/27/24 09:06 Aspirin 81 Mg Ec Tablet PO 81 mg DAILY AMBER Administration Ciprofloxacin HCl 1 drop 08/24/24 17:00 08/27/24 09:13 Ciprofloxacin 0.3% Op Soln 2.5 Ml Btl EYE-BOTH 1 drop QID AMBER Administration Protocol Collagenase 1 applic 08/24/24 11:45 08/27/24 09:13 Collagenase Oint 30 Gm TOPICAL 1 applic DAILY AMBER Administration Furosemide 40 mg 08/26/24 18:30 08/27/24 06:13 Furosemide 10 Mg/Ml Sdv 4ml IVP 40 mg Q12H AMBER Administration Glucagon 1 mg 08/24/24 20:08 08/25/24 03:05 Glucagon 1 Mg/Ml Kit 1 Ml IM 1 mg Q15M PRN Administration HYPOGLYCEMIA Heparin Sodium (Porcine) 5,000 unit 08/24/24 09:00 08/27/24 09:06 Heparin 5,000 Unit/Ml Inj 1 Ml SUBCUT 5,000 unit Q12H AMBER Administration Dextrose 1,000 mls @ 50 mls/hr 08/24/24 20:30 08/27/24 08:44 D10w IV Not Given .Q20H AMBER Vancomycin HCl 1,250 mg in 250 mls @ 200 mls/hr 08/26/24 16:30 08/26/24 16:27 Vancocin IV 200 mls/hr Q24H AMBER Administration Meropenem 1,000 mg 08/26/24 16:30 08/27/24 09:06 Meropenem 1,000 Mg Sdv IVP 1,000 mg Q8H AMBER Administration Protocol Morphine Sulfate 2 mg 08/24/24 16:36 08/27/24 02:34 Morphine 4 Mg/Ml Sdv 1 Ml IVP 2 mg Q6H PRN Administration SEVERE PAIN Pantoprazole Sodium 40 mg 08/24/24 09:00 08/27/24 09:[address] 40 Mg Tablet PO 40 mg DAILY AMBER Administration Potassium Chloride 20 meq 08/27/24 09:00 08/27/24 09:06 Potassium Chloride Er 20 Meq Tablet PO 20 meq DAILY AMBER Administration PFSH Acute 2 PFSH: Medical History (Updated 08/26/24 @ 17:49 by Ashley Phan MD) Chronic kidney disease Gout Type 2 diabetes mellitus Cardiogenic shock 06/2024 Hypertension Chronic wound of extremity HFrEF (heart failure with reduced ejection fraction) Hypertensive urgency Lower extremity edema Third degree heart block Status post pacemaker placement, 2024 [facility] Congestive heart failure Seropositive rheumatoid arthritis of multiple sites Surgical History (Updated 08/26/24 @ 17:49 by Ashley Phan MD) H/O umbilical hernia repair (~11/2022) History of cardiac catheterization 03/06/2024 nonischemic cardiomyopathy [facility] - LM normal; LAD luminal irregularities; LCx, OM1, OM2, RCA, PDA normal S/P placement of cardiac pacemaker (04/29/24) kalyani chamber, placed at [facility], due to 3rd degree heart block Status post debridement 06/2024 Dr Cervantes RLE wounds x several 04/2024 BLE at [facility], left 2nd toe ray amputation History of hernia repair Family History Mother Cancer breast Father Cancer non hodgkins lymphoma Other CAD (coronary artery disease) Diabetes Family history of premature coronary artery disease Denies family history of Rheumatoid arthritis Lupus Hyperlipidemia Chronic kidney disease (CKD) Lung disease Hypertension Stroke Social History Smoking and tobacco/nicotine status: never used tobacco/nicotine Alcohol intake: never Substance/Drug Use: never Lives independently: Yes Marital status: Single Number of children: 1 Current occupational status: retired Special jennifer needs: No Agree to transfusion: Yes Vitals/I&O/Wt Last Vital Signs Temp 98.4 F 08/27/24 04:00 Pulse 98 08/27/24 09:00 Resp 12 08/27/24 09:00 BP 109/69 08/27/24 09:00 Pulse Ox 94 08/27/24 09:00 O2 Del Method Room Air 08/27/24 04:00 O2 Flow Rate 4 08/25/24 13:30 FiO2 30 08/26/24 08:30 08/26/24 08/27/24 08/27/24 22:59 06:59 14:59 Intake Total 775.833 / 955.833 640 / 1595.833 200 / 200 Output Total 200 / 5600 2500 / 8100 Balance 575.833 / -4644.167 -1860 / -6504.167 200 / 200 Weight last 48 hrs Weight 107 kg Weight 111.5 kg Physical Exam 2 Urinary Catheter Management: Marsh: Cath Placed During This Visit: yes Reason for Continuing Indwelling Catheter: Accurate Measurement of Urinary Output in Critically Ill Patients Urinary Catheter Date of Insertion: 08/24/24 Urinary Catheter Time of Insertion: 04:54 Data 08/27/24 05:14 08/27/24 05:14 Micro: Microbiology 08/26/24 10:42 Gram Stain - Final Other Source A&P PDMP PDMP Reviewed: Not Reviewed Coding Level of Care Code Acute Code for Chg Fwd
--- NOTE | 2024-08-27 13:04 | P.PN_ITS ---
Subjective 2 Subjective: seen this morning no acute events overnight Vitals/I&O/Wt Last Vital Signs Temp 98.4 F 08/27/24 04:00 Pulse 76 08/27/24 12:00 Resp 12 08/27/24 12:00 BP 124/71 08/27/24 12:00 Pulse Ox 96 08/27/24 11:00 O2 Del Method Room Air 08/27/24 04:00 O2 Flow Rate 4 08/25/24 13:30 FiO2 30 08/26/24 08:30 08/26/24 08/27/24 08/27/24 22:59 06:59 14:59 Intake Total 775.833 / 955.833 640 / 1595.833 500 / 500 Output Total 200 / 5600 2500 / 8100 Balance 575.833 / -4644.167 -1860 / -6504.167 500 / 500 Weight last 48 hrs Weight 107 kg Weight 111.5 kg Physical Exam 2 Narrative: General: Alert oriented x3, patient seen laying in bed, on room air HEENT: Normocephalic, atraumatic, EOMI, Cardio: Regular rate rhythm, normal S1-S2, Respiratory: Good bilateral air entry, no wheezes no rhonchi appreciated GI: Abdomen soft, nontender, nondistended, bowel sounds + Extremities: both b/l LE wrapped with compression wraps. Urinary Catheter Management: Marsh: Cath Placed During This Visit: yes Reason for Continuing Indwelling Catheter: Accurate Measurement of Urinary Output in Critically Ill Patients Urinary Catheter Date of Insertion: 08/24/24 Urinary Catheter Time of Insertion: 04:54 Data 08/27/24 05:14 08/27/24 05:14 Micro: Microbiology 08/26/24 10:42 Gram Stain - Final Other Source Anaerobic Culture - Preliminary Wound Culture - Preliminary A&P Assessment and plan (1) Osteomyelitis of foot: Currently on meropenem day 1 and vancomycin day 3. Status post debridement including bone cortex 08/26. - Follow up pending cultures - PICC line - Anticipate 6 weeks IV antibiotics given chronicity of wounds, development of osteomyelitis and comorbid conditions, implanted devices - Plan of care discussed with Dr Burton - Review of records shows that patient was treated with daptomycin and Zosyn in the past Qualifiers: Osteomyelitis type: subacute Laterality: left Qualified Code(s): M 86.272 - Subacute osteomyelitis, left ankle and foot (2) Bilateral leg ulcer: Longstanding venous stasis ulcers, worse on the left than the right. Status post debridement left lower extremity 08/26, right lower extremity healing with medical management at this time - Continue wound care Qualifiers: Non-pressure ulcer stage: with necrosis of muscle Qualified Code(s): L 97.913 - Non-pressure chronic ulcer of unspecified part of right lower leg with necrosis of muscle; L97.923 - Non-pressure chronic ulcer of unspecified part of left lower leg with necrosis of muscle (3) Acute exacerbation of CHF (congestive heart failure): Ejection fraction 15% consistent with systolic heart failure/heart failure with reduced ejection fraction chronically. Normally on Entresto and oral Lasix, in addition to dapaglifozin. Presently acutely exacerbated and has been on Lasix drip. No longer requiring continuous BiPAP therapy today, remains on 4L bnc. Electrolytes stable as his renal function. - Continue Lasix drip today given continued good diuresis and stable renal function, vital signs - Cardiology following - Anticipate change to intermittent lasix IV soon - Need to consider resuming entresto when able - Marsh catheter for close monitoring of urine output Qualifiers: Heart failure type: systolic Qualified Code(s): I50.23 - Acute on chronic systolic (congestive) heart failure (4) Status post debridement: Underwent debridement of left lower extremity wounds by Dr. Burton 08/26. Right lower extremity wounds are healing and did not require debridement at this time. Debridement included right second metatarsal and findings consistent with osteomyelitis. - Follow-up cultures from surgery 08/26/24 - Dressing changes as per Dr Burton - Pain control (5) Bilateral cellulitis of lower leg: Longstanding stasis wounds with intermittent cellulitis - Management for osteomyelitis and ulcerations should be adequate (6) Abscess of left foot: At left foot, 2nd metatarsal - Management as elsewhere noted (7) Type 2 diabetes mellitus: Chronically on dapagliflozin. A1c had been as high as 7 though most rcent this month at 5.6 - Not currently requiring insulin but will need to watch post procedure to ensure healing - Dapaglifozin held while in hospital Qualifiers: Diabetes mellitus complication detail: with peripheral angiopathy without gangrene Diabetes mellitus complication status: with circulatory complication Diabetes mellitus investigation manager insulin use: without investigation manager use Q ualified Code(s): E11.51 - Type 2 diabetes mellitus with diabetic peripheral angiopathy without gangrene (8) Chronic kidney disease: At baseline looks to have chronic kidney disease stage IIIa. Currently with diuresis approaching stage IIIb, which may be a more accurate reflection of baseline going forward. - Monitor renal function and urine output closely Qualifiers: Chronic kidney disease stage: stage 3 (moderate) Chronic kidney disease stage 3 subtype: stage 3a (GFR 45-59) Qualified Code(s): N18.31 - Chronic kidney disease, stage 3a (9) S/P placement of cardiac pacemaker: Jun 2024 at [facility] secondary to complete heart block - Aware (10) Red eye: Present on admission, right eye, treated with Cipro ophthalmologic drops - Continue eyedrops as ordered (11) PICC (peripherally inserted central catheter) in place: Placed 08/26/2024 for planned long-term IV antibiotics in the outpatient setting Plan 08/23/24 64-year-old male currently admitted with chief complaints of worsening lower extremity wounds Patient has open wounds of the right tibial chowdhury, noted to have puslike drainage. Additional wounds over noted over the left and right foot. Over the left foot there is an area of past-pointing and drainage in the second metatarsal space. Obtain CT evaluation of bilateral lower extremities and feet to assess for underlying osteomyelitis. Blood cultures taken in the emergency room. Start piperacillin/tazobactam and vancomycin empirically. Based on CT results, will likely need podiatry and general surgery assessments. Of note surgical service is not available at the hospital until August 25, 2024. Ihasn patient is not showing signs of sepsis, will start iv abx and monitor closely. lasix 40mg iv q12h for acute on chronic CHF exacerbation monitor urine output and creatinine closely 08/24/24 Patient noted to be in hypercapneic respiratory acidosis. Placed on Bipap, serial ABG to be checked. CT findings as above with left metatarsal osteomyelitis and abscess. Right foot tenosynovitis cellulitis and open wound. Podiatry consulted, appreciate recommendations. Plan for OR intervention early next week. May need general anesthesia. Cardiology consult for pre op cardiac risk assessment. His current significant comorbidities include CHF exacerbation, nonischemic cardiomyopathy with ejection fraction of 15%. Currently has defibrillator in place. Patient had 6 beat run of V. tach today. Resume home dose of carvedilol 6.25 mg p.o. twice daily. Continue insulin sliding scale. Priro cx data reviewed, Achromobacter has variable susceptibility most recent isolate noted sensitivity to piperacillin/tazobactam, however prior to isolates reported resistant. Will switch Zosyn to meropenem 1 g IV every 8 hours. Continue vancomycin. To obtain cultures with OR debridement. Anticipate patient will need 4 to 6 weeks of IV antibiotics for osteomyelitis. Will plan on PICC line placement once blood cultures are negative for 48 hours. 08/25/24 Improving mentation today, He is awake alert and conversant this morning. Hypoglycemic overnight. Now that mentation is better, okay to resume diet. Patient states he does not have a Bipap but an 02 concentrator at home and uses intermittent 02 when he feels SOB. He wonders if he will benefit from a Bipap at home. HE continues to be on a lasix drip, diuresing well, currently net negative by 2L this morning. renal function stable with cr at 1.5. Continue lasix drip per cardiology recommendation. No chest pain. Continue iv abx inculding meropenem and vancomycin. Planned for OR intervention tomorrow, likely under local anesthesia/ nerve block as he is poor candidate for general anesthesia. He will need 6 weeks of iv abx for osteomyelitis of left metatarsal and right tibia showing signs of tenosynovitis, early osteomyelitis. Abx to be decided based on cultures from OR. Picc line to facilitate above. Discussed with patient that he will be best served by transitioning to SNF for daily rigorous wound care, daily iv abx, Picc line care. HE lives alone and has no assistance. He is hesitant to move to SNF as he fears he will have squatters on his property like the last time he was in SNF. He is agreeable to move to SNF if he can have police check in on his home from time to time. Will discuss disposition planning with case management. 08/26/24 Underwent surgical debridement today by Dr. Burton. Culture sent for osteomyelitis of the second metatarsal. Right lower extremity wounds did not require acute debridement though left lower extremity wounds were debrided. Dressings are in place and wound care will continue. Remains on Lasix drip but is off of BiPAP continuously today. Requiring 4 L of oxygen by nasal cannula. Short of breath still but not near like he had been. PICC line was placed today for planned 6 weeks of IV antibiotics given implanted devices and development of osteomyelitis despite other management that has included recurrent debridement and previous IV antibiotics. Plan is still for consideration of skilled placement at discharge. Hopefully we will be able to transition him to intermittent IV Lasix tomorrow and maintain. Has chronic kidney disease stage IIIa potentially 3B. VTE prophylaxis: Subcu heparin GI Prophylaxis: On a PPI here, not on at home Antibiotics: Merrem and Vanco Pending studies:Cultures from surgery 08/26 and blood cultures 08/23 Telemetry: Ordered Marsh: Ordered due to Lasix drip Line(s): peripheral IVs and PICC line Disposition plan: Anticipate skilled placement at discharge with 6 weeks total IV antibiotics, PICC line and wound care management. Has requested notifying authorities that he will not be at his property so they can check on it for him. Code Status: Full Code Supportive care otherwise Findings, concerns and plans were discussed with patient and he was given an opportunity to ask questions Also reviewed plan of care with nursing 08/27/2024 awaiting bone cultures Dressings are in place and wound care will continue. PICC line was placed today for planned 6 weeks of IV antibiotics given implanted devices and development of osteomyelitis despite other management that has included recurrent debridement and previous IV antibiotics. Plan is still for consideration of skilled placement at discharge. continue lasix 40 iv bid, cardiology following K low today, will replete, order K and Mg PDMP PDMP Reviewed: Not Reviewed Attestations 2 Medical Necessity Statement*: awaiting bone cultures and safe discharge planning Diagnoses Subacute osteomyelitis of left foot M86.272 Osteomyelitis type: subacute Laterality: left Ulcers of both lower extremities with necrosis of muscle L97.913; L97.923 Non-pressure ulcer stage: with necrosis of muscle Acute on chronic systolic congestive heart failure I50.23 Heart failure type: systolic Status post debridement Z98.890 Bilateral cellulitis of lower leg L03.116; L03.115 Abscess of left foot L02.612 Type 2 diabetes mellitus with diabetic peripheral angiopathy without gangrene, without long-term current use of insulin E11.51 Diabetes mellitus complication detail: with peripheral angiopathy without gangrene Diabetes mellitus complication status: with circulatory complication Diabetes mellitus investigation manager insulin use: without investigation manager use Stage 3a chronic kidney disease N18.31 Chronic kidney disease stage: stage 3 (moderate) Chronic kidney disease stage 3 subtype: stage 3a (GFR 45-59) S/P placement of cardiac pacemaker Z95.0 Red eye H57.89 PICC (peripherally inserted central catheter) in place Z45.2
[2024-08-27] MEDS: magnesium sulfate premix 2 GM/50 ML PIGGYBACK IV (13:55)
--- NOTE | 2024-08-27 14:57 | P.PN_ITS ---
Subjective 2 Subjective: Patient seen at bedside this morning. Much more alert and oriented. Off BiPAP. Cultures pending. Day 1 status post left foot second metatarsal incision bone cortex and debridement of left leg wounds Vitals/I&O/Wt Last Vital Signs Temp 98.4 F 08/27/24 04:00 Pulse 76 08/27/24 12:00 Resp 20 H 08/27/24 13:54 BP 124/71 08/27/24 12:00 Pulse Ox 97 08/27/24 13:54 O2 Del Method Room Air 08/27/24 04:00 O2 Flow Rate 4 08/25/24 13:30 FiO2 30 08/26/24 08:30 08/26/24 08/27/24 08/27/24 22:59 06:59 14:59 Intake Total 775.833 / 955.833 640 / 1595.833 500 / 500 Output Total 200 / 5600 2500 / 8100 Balance 575.833 / -4644.167 -1860 / -6504.167 500 / 500 Weight last 48 hrs Weight 235 lb 14.314 oz Weight 245 lb 13.047 oz Physical Exam 2 Narrative: BELOW IS A FOCUSED LOWER EXTREMITY EXAM GENERAL: A&O x 3 VASCULAR: DP/PT pulses palpable 2/4 with CFT intact, <3seconds to distal digits DERMATOLOGICAL: Granular wound beds of bilateral venous stasis ulcerations. Incision well coapted to left foot second metatarsal head resection site. No active drainage. Strikethrough blood noted on dressing but hemostasis noted. MUSCULOSKELETAL: Pain to palpation of periwound area bilateral legs. Left foot second digit amputation NEUROLOGICAL: Neurological sensation to the affected foot and ankle is present through L4-S1 dermatomes with no hyper/hypoesthesias, negative Tinel or Valleix's sign Urinary Catheter Management: Marsh: Cath Placed During This Visit: yes Reason for Continuing Indwelling Catheter: Accurate Measurement of Urinary Output in Critically Ill Patients Urinary Catheter Date of Insertion: 08/24/24 Urinary Catheter Time of Insertion: 04:54 Data 08/27/24 05:14 08/27/24 05:14 Micro: Microbiology 08/26/24 10:42 Gram Stain - Final Other Source Anaerobic Culture - Preliminary Wound Culture - Preliminary A&P Assessment and plan (1) Osteomyelitis: (2) Ulcer of left foot with fat layer exposed: (3) Abscess of left foot: Status post incision bone cortex left second metatarsal. Doing well. Cultures pending (4) Venous stasis ulcer: Status post left venous stasis ulcer excisional debridement in OR. Right leg venous stasis ulcerations healing at this time with collagenase enzymatic debridement. We will continue wet-to-dry dressings daily. Podiatry will perform these. Upon discharge patient may be candidate for home health to perform twice weekly compression wraps with Hydrofera Blue dressing. Plan - Left foot abscess, second metatarsal osteomyelitis. Bilateral lower extremity venous stasis ulcerations -Labs and vitals reviewed -Cultures: Wound cultures from 07/01/2024 grew Stenotrophomonas maltophilia and A chromobacter xylosoxidans. OR cultures pending -Abx Vanco/Zosyn -Diet: Okay for diet from podiatry standpoint - No plan for surgical intervention from podiatry during this admission -Pain Mgmt: Per primary -Weight bearing: As tolerated -Dressings: Podiatry changing dressings daily -Continue current Abx therapy until ID and Sensitivity results -Trend labs -Discharge plan: Home versus LTAC. Case discussed with hospitalist. The patient decides that he wants to go home we will need to set up home health for twice weekly compression wraps to bilateral lower extremities. PICC line is placed. He will need long-term IV antibiotics. -Podiatry will continue to round on patient daily and provide recommendations PDMP PDMP Reviewed: Not Reviewed Attestations 2 Medical Necessity Statement*: See hospitalist note Coding Level of Care Code Acute Code for [facility] Diagnoses Osteomyelitis M86.9 Ulcer of left foot with fat layer exposed L97.522 Abscess of left foot L02.612 Venous stasis ulcer I83.009; L97.909
[2024-08-27] MEDS: HYDROcodone-acetaminophen 5-325 mg Tablet 1 TAB PO (16:00)
[2024-08-27] MEDS: vancomycin 1,250 MG/250 ML PIGGYBACK 200 MG IV (16:21)
--- NOTE | 2024-08-27 16:55 | ECG_ITS ---
[employer] Test Date: 2024-08-27 Pat Name: Ely Hare Department: Room: [facility] Gender: Male Closing Agent: : 1960 Requested By: Margo Hernandez Order Number: [id number] Fabiano MD: Marylu Nick M.D. Measurements Intervals [place] Rate: 86 P: 16 IL: 148 QRS: 2 QRSD: 104 T: 99 QT: 399 QTc: 478 Interpretive Statements SINUS RHYTHM WITH OCCASIONAL SUPRAVENTRICULAR PREMATURE COMPLEXES LOW QRS VOLTAGE IN EXTREMITY LEADS [QRS DEFLECTION < 0.5 mV IN LIMB LEADS] Diffuse non specific ST T changes INTERPRETATION BASED ON A DEFAULT AGE OF 40 YEARS Compared to ECG 08/23/2024 12:20:53 Myocardial infarct finding no longer present Electronically Signed On 08-27-2024 21:18:36 CDT by Marylu Nick M.D. [email or web address]
--- NOTE | 2024-08-27 18:42 | PM.PN ---
Subjective Subjective: Patient had a toe amputation and wound debridement yesterday. Has no chest pain or shortness of breath. Vital signs remained stable. Room air oxygenation is good. Medications: Medication Review Details: Current Medications Acetaminophen (Acetaminophen 325 Mg Tablet) 650 mg PO Q6H PRN PRN Reason: Mild/Mod Pain Or Temp >/= 101 Aspirin (Aspirin 81 Mg Ec Tablet) 81 mg PO DAILY [facility] Last Admin: 08/27/24 09:06 Dose: 81 mg Ciprofloxacin HCl (Ciprofloxacin 0.3% Op Soln 2.5 Ml Btl) 1 drop EYE-BOTH QID [facility]; Protocol Last Admin: 08/27/24 16:21 Dose: 1 drop Collagenase (Collagenase Oint 30 Gm) 1 applic TOPICAL DAILY [facility] Last Admin: 08/27/24 09:13 Dose: 1 applic Furosemide (Furosemide 10 Mg/Ml Sdv 4ml) 40 mg IVP Q12H [facility] Last Admin: 08/27/24 16:21 Dose: 40 mg Glucagon (Glucagon 1 Mg/Ml Kit 1 Ml) 1 mg IM Q15M PRN PRN Reason: HYPOGLYCEMIA Last Admin: 08/25/24 03:05 Dose: 1 mg Heparin Sodium (Porcine) (Heparin 5,000 Unit/Ml Inj 1 Ml) 5,000 unit SUBCUT Q12H [facility] Last Admin: 08/27/24 09:06 Dose: 5,000 unit Dextrose (D5w) 500 mls @ 0 mls/hr IV ONCE PRN; Protocol PRN Reason: Adult Acute Hypoglycemia Prot Dextrose (D10w) 125 mls @ 750 mls/hr IV PRN PRN; Protocol PRN Reason: Adult Acute Hypoglycemia Nursing Protocol Dextrose (D10w) 1,000 mls @ 50 mls/hr IV .Q20H [facility] Last Admin: 08/27/24 08:44 Dose: Not Given Vancomycin HCl (Vancocin) 1,250 mg in 250 mls @ 200 mls/hr IV Q24H [facility] Last Admin: 08/27/24 16:21 Dose: 200 mls/hr Meropenem (Meropenem 1,000 Mg Sdv) 1,000 mg IVP Q8H [facility]; Protocol Last Admin: 08/27/24 16:21 Dose: 1,000 mg Morphine Sulfate (Morphine 4 Mg/Ml Sdv 1 Ml) 2 mg IVP Q6H PRN PRN Reason: SEVERE PAIN Last Admin: 08/27/24 13:54 Dose: 2 mg Ondansetron HCl (Ondansetron 2 Mg/Ml Sdv 2 Ml) 4 mg IVP Q8H PRN PRN Reason: vomiting, or N/V if npo Pantoprazole Sodium (Pantoprazole Dr 40 Mg Tablet) 40 mg PO DAILY [facility] Last Admin: 08/27/24 09:06 Dose: 40 mg Potassium Chloride (Potassium Chloride Er 20 Meq Tablet) 20 meq PO DAILY [facility] Last Admin: 08/27/24 09:06 Dose: 20 meq Vitals/I&O/Wt Last Vital Signs Temp 98.4 F 08/27/24 04:00 Pulse 73 08/27/24 17:34 Resp 14 08/27/24 17:30 BP 149/83 08/27/24 17:30 Pulse Ox 90 08/27/24 17:30 O2 Del Method Room Air 08/27/24 04:00 O2 Flow Rate 4 08/25/24 13:30 FiO2 30 08/26/24 08:30 08/27/24 08/27/24 08/27/24 06:59 14:59 22:59 Intake Total 640 / 1845.833 500 / 500 Output Total 2500 / 8100 1800 / 1800 Balance -1860 / -6254.167 500 / 500 -1800 / -1300 Weight last 48 hrs Weight 235 lb 14.314 oz Weight 245 lb 13.047 oz Physical Exam Narrative: GENERAL: The patient is alert and oriented times three. Not in any acute distress. Somewhat lethargic HEENT: No significant pallor, icterus or lymphadenopathy.Oral cavity: There are no mucous membrane lesions. NECK: Trachea appears to be central. No masses noted. No JVD or thyromegaly appreciated. RESPIRATORY: Chest is symmetrical. No intercostals muscle retraction or any accessory muscle activation. There is no chest wall tenderness. Breath sounds are heard bilaterally. No rales or rhonchi heard. No evidence of any consolidation. BREASTS: Deferred. HEART: The heart sounds are normal. No S3 or S4. No significant murmurs. No pericardial rub ABDOMEN: No vessel pulsations or distention. No tenderness. No organomegaly appreciated. Bowel sounds are normally heard. : Deferred. RECTAL: Deferred. LYMPHATIC: No lymphadenopathy noted in the neck or groin. EXTREMITIES: 2-+ edema bilaterally.. Redness in both lower extremities and are bandaged. MUSCULOSKELETAL: No acute joint deformities or swelling SKIN: There are no significant scars or skin rash noted. NEUROPSYCHIATRIC: The patient is alert and oriented x3. Appears to be in a good mood. No tremors or rigidity noted. Urinary Catheter Management: Marsh: Cath Placed During This Visit: yes Reason for Continuing Indwelling Catheter: Accurate Measurement of Urinary Output in Critically Ill Patients Urinary Catheter Date of Insertion: 08/24/24 Urinary Catheter Time of Insertion: 04:54 Data 08/27/24 05:14 08/27/24 05:14 Other Labs: Laboratory Last Values WBC 10.26 10^3/uL (3.29-11.43) 08/27/24 05:14 RBC 4.03 10^6/uL (3.85-5.65) 08/27/24 05:14 Hgb 10.50 g/dL (11.27-16.99) L 08/27/24 05:14 Hct 34.4 % (37-53) L 08/27/24 05:14 MCV 85.4 fl (82-101) 08/27/24 05:14 MCH 26.1 pg (27-33) L 08/27/24 05:14 MCHC 30.5 g/dL (30-55) 08/27/24 05:14 RDW 17.2 % (12.1-15.1) H 08/27/24 05:14 Plt Count 268 10^3/cmm (157-399) 08/27/24 05:14 MPV 9.4 fL (7.4-10.4) 08/27/24 05:14 Neut % (Auto) 76.8 % 08/27/24 05:14 Lymph % (Auto) 8.7 % 08/27/24 05:14 [place] % (Auto) 13.2 % 08/27/24 05:14 Eos % (Auto) 0.1 % 08/27/24 05:14 Baso % (Auto) 0.8 % 08/27/24 05:14 Neut # (Auto) 7.89 10^3/uL (1.8-7.7) H 08/27/24 05:14 Lymph # (Auto) 0.9 10^3/uL (0.8-4.8) 08/27/24 05:14 [place] # (Auto) 1.4 10^3/uL (0.2-0.9) H 08/27/24 05:14 Eos # (Auto) 0.0 10^3/uL (0.0-0.8) 08/27/24 05:14 Baso # (Auto) 0.1 10^3/uL (0.0-0.1) 08/27/24 05:14 Nucleated RBC % (auto) 0 % 08/27/24 05:14 Nucleated RBCs # 0.0 /100WBC 08/27/24 05:14 Specimen Type Arterial 08/26/24 03:56 Sample Site Radial, right 08/26/24 03:56 ABG pH 7.39 (7.35-7.45) 08/26/24 03:56 ABG pCO2 52.2 mmHg (35-45) H 08/26/24 03:56 ABG pO2 84.0 mmHg (80.0-100.0) 08/26/24 03:56 ABG PO2/FiO2 Ratio 280 08/26/24 03:56 ABG HCO3 31.3 mmol/L (22-26) H 08/26/24 03:56 ABG O2 Saturation 98.6 08/25/24 10:16 ABG Base Excess 5.3 mmol/L (-2.0-2.0) H 08/26/24 03:56 Shawn Test Pos 08/26/24 03:56 A-a O2 Gradient 10.1 mmHg (5-10) H 08/25/24 10:16 Hematocrit 32.5 % (42-52) L 08/26/24 03:56 Hgb O2 Saturation 95.9 % (95-100) 08/25/24 10:16 Carboxyhemoglobin 1.8 %THgb (0.4-20.1) 08/25/24 10:16 Methemoglobin 0.9 % (0.4-1.5) 08/25/24 10:16 Total Hemoglobin 10.8 g/dL (14-18) L 08/25/24 10:16 Sodium 141.0 mmol/L (131-143) 08/25/24 10:16 Potassium 3.6 mmol/L (3.5-5.0) 08/25/24 10:16 Glucose 124.0 mg/dL (70-115) H 08/25/24 10:16 Ionized Calcium 1.2 mmol/L (1.1-1.4) 08/25/24 10:16 O2 Delivery Device Bipap 08/26/24 03:56 O2 Liters/Min 4.0 % 08/25/24 10:16 FiO2 30.0 % 08/26/24 03:56 Tidal Volume 0.55 08/26/24 03:56 PEEP 8.0 cmH20 08/26/24 03:56 [employer] Product Consultant ID [id number] 08/26/24 03:56 Sodium 143 mmol/L (136-145) 08/27/24 05:14 Potassium 3.1 mmol/L (3.5-5.1) L 08/27/24 05:14 Chloride 99 mmol/L (98-107) 08/27/24 05:14 Carbon Dioxide 34 mmol/L (22-29) H 08/27/24 05:14 Anion Gap 13.1 (5-19) 08/27/24 05:14 BUN 24 mg/dL (8-23) H 08/27/24 05:14 Creatinine 1.1 mg/dL (0.7-1.2) 08/27/24 05:14 GFR Calculation 67.2 mL/min (90-130) L 08/27/24 05:14 Glucose 109 mg/dL (65-115) 08/27/24 05:14 POC Glucose 135 mg/dL (70-110) H 08/26/24 21:03 Estimat Average Glucose 114 08/23/24 12:37 Hemoglobin A1c 5.6 % (4.0-6.0) 08/23/24 12:37 Calculated Osmolality 301 mOsm/kg (285-295) H 08/27/24 05:14 Lactic Acid 2.1 mmol/L (0.5-2.2) 08/23/24 15:20 Lactic Acid (Sepsis) 2.1 mmol/L (0.5-2.2) 08/23/24 18:41 Calcium 8.0 mg/dL (8.5-10.5) L 08/27/24 05:14 Phosphorus 2.4 mg/dL (2.5-4.5) L 08/27/24 05:14 Magnesium 1.6 mg/dL (1.7-2.3) L 08/27/24 05:14 Total Bilirubin 1.1 mg/dL (0.15-1.2) 08/26/24 02:36 AST 15 U/L (0-40) 08/26/24 02:36 ALT 9 U/L (0-41) 08/26/24 02:36 Alkaline Phosphatase 134 U/L (40-130) H 08/26/24 02:36 NT-Pro-B Natriuret Pep 5959 pg/mL (0-125) H 08/24/24 20:51 Total Protein 5.5 g/dL (6.6-8.7) L 08/26/24 02:36 Albumin 3.0 g/dL (3.5-5.2) L 08/26/24 02:36 Globulin 2.5 g/dL (1.3-4.6) 08/26/24 02:36 Urine Color Dark yellow (Yellow) A 08/23/24 14:46 Urine Appearance Clear (CLEAR) 08/23/24 14:46 Urine pH 5.5 (5-7) 08/23/24 14:46 Ur Specific [place] 1.026 (1.005-1.030) 08/23/24 14:46 Urine Protein 2+ (Negative) A 08/23/24 14:46 Urine Glucose (UA) Negative (Normal) 08/23/24 14:46 Urine Ketones Trace (Negative) 08/23/24 14:46 Urine Blood Negative (Negative) 08/23/24 14:46 Urine Nitrate Negative (Negative) 08/23/24 14:46 Urine Bilirubin 1+ (Negative) H 08/23/24 14:46 Urine Urobilinogen 2.0 mg/dL (Negative) H 08/23/24 14:46 Ur Leukocyte Esterase Negative (Negative) 08/23/24 14:46 Urine RBC 3-5 /hpf (0-2) 08/23/24 14:46 Urine WBC 0-5 /hpf (0-5) 08/23/24 14:46 Ur Squamous Epith Cells 0-5 /hpf (0-5) 08/23/24 14:46 Calcium Oxalate Crystal 0-4 /hpf H 08/23/24 14:46 Amorphous Sediment 1+ /hpf 08/23/24 14:46 Urine Bacteria Trace /hpf (NONE) 08/23/24 14:46 Hyaline Casts 1.65 /lpf 08/23/24 14:46 Vancomycin Trough 25.0 ug/mL (10-15) H 08/26/24 06:02 Micro: Microbiology 08/26/24 10:42 Gram Stain - Final Other Source Anaerobic Culture - Preliminary Wound Culture - Preliminary A&P Assessment and plan (1) Congestive heart failure: The heart failure seems to be compensated. May continue on the current medications. May restart the Entresto if the blood pressure is stable Qualifiers: Heart failure chronicity: acute on chronic Heart failure type: systolic Qualified Code(s): I50.23 - Acute on chronic systolic (congestive) heart failure (2) Nonischemic congestive cardiomyopathy: Patient is known to have severe LV systolic dysfunction with an ejection fraction of 15%. Hemodynamically seems to be stable. Patient is on Entresto. Since the blood pressure is elevated, I may increase the dose of the Entresto to 49/51 twice daily (3) Hypertension: The medication changes as mentioned above. Will continue to monitor blood pressure. Qualifiers: Hypertension type: primary hypertension Qualified Code(s): I10 - Essential (primary) hypertension (4) Bilateral cellulitis of lower leg: On IV antibiotics. Status post amputation of the second toe on the left side and wound debridement bilaterally (5) Presence of permanent cardiac pacemaker: The pacemaker function appears to be appropriate. Continue on the current management. Plan Other problems are Chronic kidney disease Type 2 diabetes Anemia Hypokalemia, being corrected Try to gradually uptitrate the Entresto. Will be closely monitoring for any decompensated heart failure. Based on the clinical progress, further management decisions will be made. PDMP PDMP Reviewed: Not Reviewed Attestations Medical Necessity Statement*: Deferred to the primary Coding Level of Care Code 84788 Diagnoses Acute on chronic systolic congestive heart failure I50.23 Heart failure chronicity: acute on chronic Heart failure type: systolic Nonischemic congestive cardiomyopathy I42.0 Primary hypertension I10 Hypertension type: primary hypertension Bilateral cellulitis of lower leg L03.116; L03.115 Presence of permanent cardiac pacemaker Z95.0
[2024-08-27 23:09] LABS: Glucose Point of Care 175 mg/dL (70-110)
[2024-08-28] VITALS (76 sets, daily range): BP systolic 88–163; BP diastolic 43–110; PULSE 62–135; RESP 10–22; TEMP 36.6–37; O2SAT 73–97; BMI 34.8
[2024-08-28] MEDS: meropenem 1,000 mg SDV 1000 MG IVP (00:19)
[2024-08-28 05:05] LABS: Basophils # 0.1 10^3/uL (0.0-0.1); Basophils % 1.1 %; Hematocrit 33.5 % (37-53); Lymphocytes % 13.2 %; Mean Corpuscular HGB Conc 30.7 g/dL (30-55); Mean Corpuscular Hemoglobin 26.5 pg (27-33); Mean Corpuscular Volume 86.3 fl (82-101); Mean Platelet Volume 9.6 fL (7.4-10.4); Monocytes % 12.5 %; Neutrophils # 5.51 10^3/uL (1.8-7.7); Neutrophils % 72.8 %; Nucleated Red Blood Cells % 0 %; Platelet Count 261 10^3/cmm (157-399); Red Blood Count 3.88 10^6/uL (3.85-5.65); Red Cell Distribution Width 17.1 % (12.1-15.1); White Blood Count 7.57 10^3/uL (3.29-11.43)
[2024-08-28 05:44] LABS: Anion Gap 9.1 (5-19); Blood Urea Nitrogen 25 mg/dL (8-23); Calcium 7.8 mg/dL (8.5-10.5); Carbon Dioxide 35 mmol/L (22-29); Chloride 99 mmol/L (98-107); Creatinine Clr Calc Pharmacy 98.6343; Glomerular Filtration Rate 84.7 mL/min (90-130); Glucose 94 mg/dL (65-115); Magnesium 1.8 mg/dL (1.7-2.3); Osmolality Calculated 294 mOsm/kg (285-295); Potassium 3.1 mmol/L (3.5-5.1); Sodium 140 mmol/L (136-145)
[2024-08-28] MEDS: FUROsemide 10 mg/mL SDV 4mL 40 MG IVP ×2 (06:25→17:34)
--- NOTE | 2024-08-28 09:04 | PM.PN ---
Subjective Subjective: Patient is feeling okay. No chest pain or shortness of breath. Vital signs remained stable. Remains afebrile. Medications: Medication Review Details: Current Medications Acetaminophen (Acetaminophen 325 Mg Tablet) 650 mg PO Q6H PRN PRN Reason: Mild/Mod Pain Or Temp >/= 101 Aspirin (Aspirin 81 Mg Ec Tablet) 81 mg PO DAILY [facility] Last Admin: 08/27/24 09:06 Dose: 81 mg Ciprofloxacin HCl (Ciprofloxacin 0.3% Op Soln 2.5 Ml Btl) 1 drop EYE-BOTH QID [facility]; Protocol Last Admin: 08/27/24 21:05 Dose: 1 drop Collagenase (Collagenase Oint 30 Gm) 1 applic TOPICAL DAILY [facility] Last Admin: 08/27/24 09:13 Dose: 1 applic Furosemide (Furosemide 10 Mg/Ml Sdv 4ml) 40 mg IVP Q12H [facility] Last Admin: 08/28/24 06:25 Dose: 40 mg Glucagon (Glucagon 1 Mg/Ml Kit 1 Ml) 1 mg IM Q15M PRN PRN Reason: HYPOGLYCEMIA Last Admin: 08/25/24 03:05 Dose: 1 mg Heparin Sodium (Porcine) (Heparin 5,000 Unit/Ml Inj 1 Ml) 5,000 unit SUBCUT Q12H [facility] Last Admin: 08/27/24 20:39 Dose: 5,000 unit Dextrose (D5w) 500 mls @ 0 mls/hr IV ONCE PRN; Protocol PRN Reason: Adult Acute Hypoglycemia Prot Dextrose (D10w) 125 mls @ 750 mls/hr IV PRN PRN; Protocol PRN Reason: Adult Acute Hypoglycemia Nursing Protocol Dextrose (D10w) 1,000 mls @ 50 mls/hr IV .Q20H [facility] Last Admin: 08/28/24 08:49 Dose: Not Given Vancomycin HCl (Vancocin) 1,250 mg in 250 mls @ 200 mls/hr IV Q12H [facility] Meropenem 2,000 mg/ Sodium (Chloride) 50 mls @ 100 mls/hr IV Q8H [facility] Morphine Sulfate (Morphine 4 Mg/Ml Sdv 1 Ml) 2 mg IVP Q6H PRN PRN Reason: SEVERE PAIN Last Admin: 08/27/24 13:54 Dose: 2 mg Ondansetron HCl (Ondansetron 2 Mg/Ml Sdv 2 Ml) 4 mg IVP Q8H PRN PRN Reason: vomiting, or N/V if npo Pantoprazole Sodium (Pantoprazole Dr 40 Mg Tablet) 40 mg PO DAILY [facility] Last Admin: 08/27/24 09:06 Dose: 40 mg Potassium Chloride (Potassium Chloride Er 20 Meq Tablet) 20 meq PO DAILY [facility] Last Admin: 08/27/24 09:06 Dose: 20 meq Sacubitril/Valsartan (Sacubitril/Valsartan 24-26 Mg Tablet) 1 each PO BID [facility] Vitals/I&O/Wt Last Vital Signs Temp 98.2 F 08/28/24 08:00 Pulse 77 08/28/24 08:00 Resp 12 08/28/24 04:30 BP 139/76 08/28/24 08:00 Pulse Ox 91 08/28/24 08:00 O2 Del Method Room Air 08/27/24 04:00 O2 Flow Rate 4 08/25/24 13:30 FiO2 30 08/26/24 08:30 08/27/24 08/28/24 08/28/24 22:59 06:59 14:59 Intake Total 780 / 1280 240 / 240 Output Total 1800 / 1800 1500 / 3300 Balance -1020 / -520 -1500 / -2020 240 / 240 Weight last 48 hrs Weight 235 lb 14.314 oz Weight 235 lb 14.314 oz Physical Exam Narrative: GENERAL: The patient is alert and oriented times three. Not in any acute distress. Somewhat lethargic HEENT: No significant pallor, icterus or lymphadenopathy.Oral cavity: There are no mucous membrane lesions. NECK: Trachea appears to be central. No masses noted. No JVD or thyromegaly appreciated. RESPIRATORY: Chest is symmetrical. No intercostals muscle retraction or any accessory muscle activation. There is no chest wall tenderness. Breath sounds are heard bilaterally. No rales or rhonchi heard. No evidence of any consolidation. BREASTS: Deferred. HEART: The heart sounds are normal. No S3 or S4. No significant murmurs. No pericardial rub ABDOMEN: No vessel pulsations or distention. No tenderness. No organomegaly appreciated. Bowel sounds are normally heard. : Deferred. RECTAL: Deferred. LYMPHATIC: No lymphadenopathy noted in the neck or groin. EXTREMITIES:1- 2-+ edema bilaterally.. Redness in both lower extremities and are bandaged. MUSCULOSKELETAL: No acute joint deformities or swelling SKIN: There are no significant scars or skin rash noted. NEUROPSYCHIATRIC: The patient is alert and oriented x3. Appears to be in a good mood. No tremors or rigidity noted. Urinary Catheter Management: Amrsh: Cath Placed During This Visit: yes Reason for Continuing Indwelling Catheter: Accurate Measurement of Urinary Output in Critically Ill Patients Urinary Catheter Date of Insertion: 08/24/24 Urinary Catheter Time of Insertion: 04:54 Data 08/28/24 04:14 08/28/24 04:14 Other Labs: Laboratory Last Values WBC 7.57 10^3/uL (3.29-11.43) 08/28/24 04:14 RBC 3.88 10^6/uL (3.85-5.65) 08/28/24 04:14 Hgb 10.30 g/dL (11.27-16.99) L 08/28/24 04:14 Hct 33.5 % (37-53) L 08/28/24 04:14 MCV 86.3 fl (82-101) 08/28/24 04:14 MCH 26.5 pg (27-33) L 08/28/24 04:14 MCHC 30.7 g/dL (30-55) 08/28/24 04:14 RDW 17.1 % (12.1-15.1) H 08/28/24 04:14 Plt Count 261 10^3/cmm (157-399) 08/28/24 04:14 MPV 9.6 fL (7.4-10.4) 08/28/24 04:14 Neut % (Auto) 72.8 % 08/28/24 04:14 Lymph % (Auto) 13.2 % 08/28/24 04:14 [place] % (Auto) 12.5 % 08/28/24 04:14 Eos % (Auto) 0.0 % 08/28/24 04:14 Baso % (Auto) 1.1 % 08/28/24 04:14 Neut # (Auto) 5.51 10^3/uL (1.8-7.7) 08/28/24 04:14 Lymph # (Auto) 1.0 10^3/uL (0.8-4.8) 08/28/24 04:14 [place] # (Auto) 1.0 10^3/uL (0.2-0.9) H 08/28/24 04:14 Eos # (Auto) 0.0 10^3/uL (0.0-0.8) 08/28/24 04:14 Baso # (Auto) 0.1 10^3/uL (0.0-0.1) 08/28/24 04:14 Nucleated RBC % (auto) 0 % 08/28/24 04:14 Nucleated RBCs # 0.0 /100WBC 08/28/24 04:14 Specimen Type Arterial 08/26/24 03:56 Sample Site Radial, right 08/26/24 03:56 ABG pH 7.39 (7.35-7.45) 08/26/24 03:56 ABG pCO2 52.2 mmHg (35-45) H 08/26/24 03:56 ABG pO2 84.0 mmHg (80.0-100.0) 08/26/24 03:56 ABG PO2/FiO2 Ratio 280 08/26/24 03:56 ABG HCO3 31.3 mmol/L (22-26) H 08/26/24 03:56 ABG O2 Saturation 98.6 08/25/24 10:16 ABG Base Excess 5.3 mmol/L (-2.0-2.0) H 08/26/24 03:56 Shawn Test Pos 08/26/24 03:56 A-a O2 Gradient 10.1 mmHg (5-10) H 08/25/24 10:16 Hematocrit 32.5 % (42-52) L 08/26/24 03:56 Hgb O2 Saturation 95.9 % (95-100) 08/25/24 10:16 Carboxyhemoglobin 1.8 %THgb (0.4-20.1) 08/25/24 10:16 Methemoglobin 0.9 % (0.4-1.5) 08/25/24 10:16 Total Hemoglobin 10.8 g/dL (14-18) L 08/25/24 10:16 Sodium 141.0 mmol/L (131-143) 08/25/24 10:16 Potassium 3.6 mmol/L (3.5-5.0) 08/25/24 10:16 Glucose 124.0 mg/dL (70-115) H 08/25/24 10:16 Ionized Calcium 1.2 mmol/L (1.1-1.4) 08/25/24 10:16 O2 Delivery Device Bipap 08/26/24 03:56 O2 Liters/Min 4.0 % 08/25/24 10:16 FiO2 30.0 % 08/26/24 03:56 Tidal Volume 0.55 08/26/24 03:56 PEEP 8.0 cmH20 08/26/24 03:56 [employer] Supervisor ID [id number] 08/26/24 03:56 Sodium 140 mmol/L (136-145) 08/28/24 04:14 Potassium 3.1 mmol/L (3.5-5.1) L 08/28/24 04:14 Chloride 99 mmol/L (98-107) 08/28/24 04:14 Carbon Dioxide 35 mmol/L (22-29) H 08/28/24 04:14 Anion Gap 9.1 (5-19) 08/28/24 04:14 BUN 25 mg/dL (8-23) H 08/28/24 04:14 Creatinine 0.9 mg/dL (0.7-1.2) 08/28/24 04:14 GFR Calculation 84.7 mL/min (90-130) L 08/28/24 04:14 Glucose 94 mg/dL (65-115) 08/28/24 04:14 POC Glucose 138 mg/dL (70-110) H 08/28/24 17:45 Estimat Average Glucose 114 08/23/24 12:37 Hemoglobin A1c 5.6 % (4.0-6.0) 08/23/24 12:37 Calculated Osmolality 294 mOsm/kg (285-295) 08/28/24 04:14 Lactic Acid 2.1 mmol/L (0.5-2.2) 08/23/24 15:20 Lactic Acid (Sepsis) 2.1 mmol/L (0.5-2.2) 08/23/24 18:41 Calcium 7.8 mg/dL (8.5-10.5) L 08/28/24 04:14 Phosphorus 2.4 mg/dL (2.5-4.5) L 08/27/24 05:14 Magnesium 1.8 mg/dL (1.7-2.3) 08/28/24 04:14 Total Bilirubin 1.1 mg/dL (0.15-1.2) 08/26/24 02:36 AST 15 U/L (0-40) 08/26/24 02:36 ALT 9 U/L (0-41) 08/26/24 02:36 Alkaline Phosphatase 134 U/L (40-130) H 08/26/24 02:36 NT-Pro-B Natriuret Pep 5959 pg/mL (0-125) H 08/24/24 20:51 Total Protein 5.5 g/dL (6.6-8.7) L 08/26/24 02:36 Albumin 3.0 g/dL (3.5-5.2) L 08/26/24 02:36 Globulin 2.5 g/dL (1.3-4.6) 08/26/24 02:36 Urine Color Dark yellow (Yellow) A 08/23/24 14:46 Urine Appearance Clear (CLEAR) 08/23/24 14:46 Urine pH 5.5 (5-7) 08/23/24 14:46 Ur Specific [place] 1.026 (1.005-1.030) 08/23/24 14:46 Urine Protein 2+ (Negative) A 08/23/24 14:46 Urine Glucose (UA) Negative (Normal) 08/23/24 14:46 Urine Ketones Trace (Negative) 08/23/24 14:46 Urine Blood Negative (Negative) 08/23/24 14:46 Urine Nitrate Negative (Negative) 08/23/24 14:46 Urine Bilirubin 1+ (Negative) H 08/23/24 14:46 Urine Urobilinogen 2.0 mg/dL (Negative) H 08/23/24 14:46 Ur Leukocyte Esterase Negative (Negative) 08/23/24 14:46 Urine RBC 3-5 /hpf (0-2) 08/23/24 14:46 Urine WBC 0-5 /hpf (0-5) 08/23/24 14:46 Ur Squamous Epith Cells 0-5 /hpf (0-5) 08/23/24 14:46 Calcium Oxalate Crystal 0-4 /hpf H 08/23/24 14:46 Amorphous Sediment 1+ /hpf 08/23/24 14:46 Urine Bacteria Trace /hpf (NONE) 08/23/24 14:46 Hyaline Casts 1.65 /lpf 08/23/24 14:46 Vancomycin Trough 25.0 ug/mL (10-15) H 08/26/24 06:02 Micro: Microbiology 08/26/24 10:42 Gram Stain - Final Other Source Anaerobic Culture - Preliminary Wound Culture - Preliminary A&P Assessment and plan (1) Congestive heart failure: The heart failure seems to be compensated. May continue on the current medications. Seems to be tolerating the Entresto so far well. I will add spironolactone 25 mg p.o. daily Qualifiers: Heart failure chronicity: acute on chronic Heart failure type: systolic Qualified Code(s): I50.23 - Acute on chronic systolic (congestive) heart failure (2) Nonischemic congestive cardiomyopathy: Patient is known to have severe LV systolic dysfunction with an ejection fraction of 15%. Hemodynamically seems to be stable. Discussed about the prophylactic ICD. Apparently this patient was on a LifeVest. Because of the inconvenience, he stopped using it and returned the device. Discussed about upgrading the pacemaker to a defibrillator. Patient is undecided about this. Because of the nonhealing ulcer, we may have to wait till the ulcer is completely healed before putting in the device. This conversation was understood by the patient while (3) Hypertension: Entresto 49/51 twice daily. Currently on her medications. Qualifiers: Hypertension type: primary hypertension Qualified Code(s): I10 - Essential (primary) hypertension (4) Bilateral cellulitis of lower leg: On IV antibiotics. 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 Patient on IV antibiotics. Seems to be responding appropriately. (5) Presence of permanent cardiac pacemaker: The pacemaker function appears to be appropriate. Continue on the current management. Plan Other problems are Chronic kidney disease Type 2 diabetes Anemia Hypokalemia, potassium is still low. Spironolactone 25 mg p.o. daily Uptitration of the Entresto as outpatient Encourage ambulation Disposition as per the primary PDMP PDMP Reviewed: Not Reviewed Attestations Medical Necessity Statement*: Deferred to the primary Coding Level of Care Code Acute Code for Chg Fwd Diagnoses Acute on chronic systolic congestive heart failure I50.23 Heart failure chronicity: acute on chronic Heart failure type: systolic Nonischemic congestive cardiomyopathy I42.0 Primary hypertension I10 Hypertension type: primary hypertension Bilateral cellulitis of lower leg L03.116; L03.115 Presence of permanent cardiac pacemaker Z95.0
[2024-08-28] MEDS: sacubitril/valsartan 24-26 mg Tablet 1 EACH PO ×2 (09:26→17:35)
[2024-08-28] MEDS: potassium chloride ER 20 mEq Tablet PO (09:26)
[2024-08-28] MEDS: heparin 5,000 unit/mL INJ 1 mL 5000 UNIT SUBCUT ×2 (09:26→20:39)
[2024-08-28] MEDS: aspirin 81 mg EC Tablet PO (09:26)
[2024-08-28] MEDS: pantoprazole DR 40 mg Tablet PO (09:26)
[2024-08-28] MEDS: vancomycin 1,250 MG/250 ML PIGGYBACK 200 MG IV ×2 (09:27→20:39)
[2024-08-28] MEDS: MEROPENEM 2,000 MG in sodium chloride 0.9% (plus) 50 ML 100 MG IV ×2 (09:27→17:34)
[2024-08-28] MEDS: ciprofloxacin 0.3% Op Soln 2.5 mL Btl 1 DROP EYE-BOTH ×4 (09:45→21:00)
--- NOTE | 2024-08-28 13:20 | PC.SOCIAL ---
IMM Updated Updated pt on IMM. No questions voiced. Provided pt a copy. Initialed, dated, & timed copy in chart.
--- NOTE | 2024-08-28 13:41 | PM.PN ---
Subjective Subjective: Seen this morning. No acute events overnight. Patient states he is still deciding on going to LTAC and he will let me know by tomorrow morning. Vitals/I&O/Wt Last Vital Signs Temp 98.2 F 08/28/24 12:00 Pulse 92 08/28/24 12:00 Resp 12 08/28/24 04:30 BP 116/72 08/28/24 12:00 Pulse Ox 92 08/28/24 12:00 O2 Del Method Room Air 08/27/24 04:00 O2 Flow Rate 4 08/25/24 13:30 FiO2 30 08/26/24 08:30 08/27/24 08/28/24 08/28/24 22:59 06:59 14:59 Intake Total 780 / 1280 780 / 780 Output Total 1800 / 1800 1500 / 3300 1000 / 1000 Balance -1020 / -520 -1500 / -2020 -220 / -220 Weight last 48 hrs Weight 107 kg Weight 107 kg Physical Exam Narrative: General: Alert oriented x3, patient seen laying in bed, on room air HEENT: Normocephalic, atraumatic, EOMI, Cardio: Regular rate rhythm, normal S1-S2, Respiratory: Good bilateral air entry, no wheezes no rhonchi appreciated GI: Abdomen soft, nontender, nondistended, bowel sounds + Extremities: both b/l LE wrapped with compression wraps. Urinary Catheter Management: Marsh: Cath Placed During This Visit: yes Reason for Continuing Indwelling Catheter: Accurate Measurement of Urinary Output in Critically Ill Patients Urinary Catheter Date of Insertion: 08/24/24 Urinary Catheter Time of Insertion: 04:54 Data 08/28/24 04:14 08/28/24 04:14 Micro: Microbiology 08/23/24 12:37 Blood Culture - Final Blood NO GROWTH AFTER 5 DAYS 08/23/24 12:37 Blood Culture - Final Blood NO GROWTH AFTER 5 DAYS 08/26/24 10:42 Gram Stain - Final Other Source Anaerobic Culture - Preliminary Wound Culture - Preliminary A&P Assessment and plan (1) Osteomyelitis of foot: Currently on meropenem day 1 and vancomycin day 3. Status post debridement including bone cortex 08/26. - Follow up pending cultures - PICC line - Anticipate 6 weeks IV antibiotics given chronicity of wounds, development of osteomyelitis and comorbid conditions, implanted devices - Plan of care discussed with Dr Burton - Review of records shows that patient was treated with daptomycin and Zosyn in the past Qualifiers: Osteomyelitis type: subacute Laterality: left Qualified Code(s): M86.272 - Subacute osteomyelitis, left ankle and foot (2) Bilateral leg ulcer: Longstanding venous stasis ulcers, worse on the left than the right. Status post debridement left lower extremity 08/26, right lower extremity healing with medical management at this time - Continue wound care Qualifiers: Non-pressure ulcer stage: with necrosis of muscle Qualified Code(s): L97.913 - Non-pressure chronic ulcer of unspecified part of right lower leg with necrosis of muscle; L97.923 - Non-pressure chronic ulcer of unspecified part of left lower leg with necrosis of muscle (3) Acute exacerbation of CHF (congestive heart failure): Ejection fraction 15% consistent with systolic heart failure/heart failure with reduced ejection fraction chronically. Normally on Entresto and oral Lasix, in addition to dapaglifozin. Presently acutely exacerbated and has been on Lasix drip. No longer requiring continuous BiPAP therapy today, remains on 4L bnc. Electrolytes stable as his renal function. - Continue Lasix drip today given continued good diuresis and stable renal function, vital signs - Cardiology following - Anticipate change to intermittent lasix IV soon - Need to consider resuming entresto when able - Marsh catheter for close monitoring of urine output Qualifiers: Heart failure type: systolic Qualified Code(s): I50.23 - Acute on chronic systolic (congestive) heart failure (4) Status post debridement: Underwent debridement of left lower extremity wounds by Dr. Burton 08/26. Right lower extremity wounds are healing and did not require debridement at this time. Debridement included right second metatarsal and findings consistent with osteomyelitis. - Follow-up cultures from surgery 08/26/24 - Dressing changes as per Dr Burton - Pain control (5) Bilateral cellulitis of lower leg: Longstanding stasis wounds with intermittent cellulitis - Management for osteomyelitis and ulcerations should be adequate (6) Abscess of left foot: At left foot, 2nd metatarsal - Management as elsewhere noted (7) Type 2 diabetes mellitus: Chronically on dapagliflozin. A1c had been as high as 7 though most rcent this month at 5.6 - Not currently requiring insulin but will need to watch post procedure to ensure healing - Dapaglifozin held while in hospital Qualifiers: Diabetes mellitus complication detail: with peripheral angiopathy without gangrene Diabetes mellitus complication status: with circulatory complication Diabetes mellitus medical terminologist insulin use: without care home use Qualified Code(s): E11.51 - Type 2 diabetes mellitus with diabetic peripheral angiopathy without gangrene (8) Chronic kidney disease: At baseline looks to have chronic kidney disease stage IIIa. Currently with diuresis approaching stage IIIb, which may be a more accurate reflection of baseline going forward. - Monitor renal function and urine output closely Qualifiers: Chronic kidney disease stage: stage 3 (moderate) Chronic kidney disease stage 3 subtype: stage 3a (GFR 45-59) Qualified Code(s): N18.31 - Chronic kidney disease, stage 3a (9) S/P placement of cardiac pacemaker: Jun 2024 at [facility] secondary to complete heart block - Aware (10) Red eye: Present on admission, right eye, treated with Cipro ophthalmologic drops - Continue eyedrops as ordered (11) PICC (peripherally inserted central catheter) in place: Placed 08/26/2024 for planned long-term IV antibiotics in the outpatient setting Plan 08/23/24 64-year-old male currently admitted with chief complaints of worsening lower extremity wounds Patient has open wounds of the right tibial chowdhury, noted to have puslike drainage. Additional wounds over noted over the left and right foot. Over the left foot there is an area of past-pointing and drainage in the second metatarsal space. Obtain CT evaluation of bilateral lower extremities and feet to assess for underlying osteomyelitis. Blood cultures taken in the emergency room. Start piperacillin/tazobactam and vancomycin empirically. Based on CT results, will likely need podiatry and general surgery assessments. Of note surgical service is not available at the hospital until August 25, 2024. [facility] patient is not showing signs of sepsis, will start iv abx and monitor closely. lasix 40mg iv q12h for acute on chronic CHF exacerbation monitor urine output and creatinine closely 08/24/24 Patient noted to be in hypercapneic respiratory acidosis. Placed on Bipap, serial ABG to be checked. CT findings as above with left metatarsal osteomyelitis and abscess. Right foot tenosynovitis cellulitis and open wound. Podiatry consulted, appreciate recommendations. Plan for OR intervention early next week. May need general anesthesia. Cardiology consult for pre op cardiac risk assessment. His current significant comorbidities include CHF exacerbation, nonischemic cardiomyopathy with ejection fraction of 15%. Currently has defibrillator in place. Patient had 6 beat run of V. tach today. Resume home dose of carvedilol 6.25 mg p.o. twice daily. Continue insulin sliding scale. Priro cx data reviewed, Achromobacter has variable susceptibility most recent isolate noted sensitivity to piperacillin/tazobactam, however prior to isolates reported resistant. Will switch Zosyn to meropenem 1 g IV every 8 hours. Continue vancomycin. To obtain cultures with OR debridement. Anticipate patient will need 4 to 6 weeks of IV antibiotics for osteomyelitis. Will plan on PICC line placement once blood cultures are negative for 48 hours. 08/25/24 Improving mentation today, He is awake alert and conversant this morning. Hypoglycemic overnight. Now that mentation is better, okay to resume diet. Patient states he does not have a Bipap but an 02 concentrator at home and uses intermittent 02 when he feels SOB. He wonders if he will benefit from a Bipap at home. HE continues to be on a lasix drip, diuresing well, currently net negative by 2L this morning. renal function stable with cr at 1.5. Continue lasix drip per cardiology recommendation. No chest pain. Continue iv abx inculding meropenem and vancomycin. Planned for OR intervention tomorrow, likely under local anesthesia/ nerve block as he is poor candidate for general anesthesia. He will need 6 weeks of iv abx for osteomyelitis of left metatarsal and right tibia showing signs of tenosynovitis, early osteomyelitis. Abx to be decided based on cultures from OR. Picc line to facilitate above. Discussed with patient that he will be best served by transitioning to SNF for daily rigorous wound care, daily iv abx, Picc line care. HE lives alone and has no assistance. He is hesitant to move to SNF as he fears he will have squatters on his property like the last time he was in SNF. He is agreeable to move to SNF if he can have police check in on his home from time to time. Will discuss disposition planning with case management. 08/26/24 Underwent surgical debridement today by Dr. Burton. Culture sent for osteomyelitis of the second metatarsal. Right lower extremity wounds did not require acute debridement though left lower extremity wounds were debrided. Dressings are in place and wound care will continue. Remains on Lasix drip but is off of BiPAP continuously today. Requiring 4 L of oxygen by nasal cannula. Short of breath still but not near like he had been. PICC line was placed today for planned 6 weeks of IV antibiotics given implanted devices and development of osteomyelitis despite other management that has included recurrent debridement and previous IV antibiotics. Plan is still for consideration of skilled placement at discharge. Hopefully we will be able to transition him to intermittent IV Lasix tomorrow and maintain. Has chronic kidney disease stage IIIa potentially 3B. VTE prophylaxis: Subcu heparin GI Prophylaxis: On a PPI here, not on at home Antibiotics: Merrem and Vanco Pending studies:Cultures from surgery 08/26 and blood cultures 08/23 Telemetry: Ordered Marsh: Ordered due to Lasix drip Line(s): peripheral IVs and PICC line Disposition plan: Anticipate skilled placement at discharge with 6 weeks total IV antibiotics, PICC line and wound care management. Has requested notifying authorities that he will not be at his property so they can check on it for him. Code Status: Full Code Supportive care otherwise Findings, concerns and plans were discussed with patient and he was given an opportunity to ask questions Also reviewed plan of care with nursing 08/27/2024 awaiting bone cultures Dressings are in place and wound care will continue. PICC line was placed today for planned 6 weeks of IV antibiotics given implanted devices and development of osteomyelitis despite other management that has included recurrent debridement and previous IV antibiotics. Plan is still for consideration of skilled placement at discharge. continue lasix 40 iv bid, cardiology following K low today, will replete, order K and Mg 08/28/2024 Dressing and wound care to continue. PICC line completed. Tentative plan to send patient to LTAC once he is able to arrange healthcare. He is talking to family to have arrangements made for someone to watch his house. Today he stated that he is strongly considering going to LTAC. He will let me know tomorrow morning. Switch to potassium 40 daily. Continue to replete potassium. Plan to switch to oral Lasix at discharge. Patient does have a permanent cardiac pacemaker however needs an AICD. At this time secondary to active infection that cannot be pursued. He has refused a LifeVest in the past. Discussed with Dr. Nick as well. After he is treated his 6 weeks of IV antibiotics consider outpatient appointment for AICD appointment. PDMP PDMP Reviewed: Not Reviewed Attestations Medical Necessity Statement*: awaiting bone cultures and safe discharge planning Diagnoses Subacute osteomyelitis of left foot M86.272 Osteomyelitis type: subacute Laterality: left Ulcers of both lower extremities with necrosis of muscle L97.913; L97.923 Non-pressure ulcer stage: with necrosis of muscle Acute on chronic systolic congestive heart failure I50.23 Heart failure type: systolic Status post debridement Z98.890 Bilateral cellulitis of lower leg L03.116; L03.115 Abscess of left foot L02.612 Type 2 diabetes mellitus with diabetic peripheral angiopathy without gangrene, without long-term current use of insulin E11.51 Diabetes mellitus complication detail: with peripheral angiopathy without gangrene Diabetes mellitus complication status: with circulatory complication Diabetes mellitus care home insulin use: without medical terminologist use Stage 3a chronic kidney disease N18.31 Chronic kidney disease stage: stage 3 (moderate) Chronic kidney disease stage 3 subtype: stage 3a (GFR 45-59) S/P placement of cardiac pacemaker Z95.0 Red eye H57.89 PICC (peripherally inserted central catheter) in place Z45.2
[2024-08-28] MEDS: collagenase oint 30 gm 1 APPLIC TOPICAL (13:59)
[2024-08-28] MEDS: potassium chloride ER 20 mEq Tablet 40 MEQ PO (14:07)
--- NOTE | 2024-08-28 15:24 | PM.PN ---
Subjective Subjective: Patient seen resting comfortably in bedside chair this afternoon. No overnight events. Discussion was had with patient about placement versus going home. Patient states that he feels that placement is what is going to be the better choice for him as he is unable to care for himself properly. Vitals/I&O/Wt Last Vital Signs Temp 98.2 F 08/28/24 12:00 Pulse 92 08/28/24 12:00 Resp 12 08/28/24 04:30 BP 116/72 08/28/24 12:00 Pulse Ox 92 08/28/24 12:00 O2 Del Method Room Air 08/27/24 04:00 O2 Flow Rate 4 08/25/24 13:30 FiO2 30 08/26/24 08:30 08/28/24 08/28/24 08/28/24 06:59 14:59 22:59 Intake Total 780 / 780 Output Total 1500 / 3300 1000 / 1000 Balance -1500 / -2020 -220 / -220 Weight last 48 hrs Weight 235 lb 14.314 oz Weight 235 lb 14.314 oz Physical Exam Narrative: BELOW IS A FOCUSED LOWER EXTREMITY EXAM GENERAL: A&O x 3 VASCULAR: DP/PT pulses palpable 2/4 with CFT intact, <3seconds to distal digits DERMATOLOGICAL: Granular wound beds of bilateral venous stasis ulcerations. Incision well coapted to left foot second metatarsal head resection site. No active drainage. Strikethrough blood noted on dressing but hemostasis noted. MUSCULOSKELETAL: Pain to palpation of periwound area bilateral legs. Left foot second digit amputation NEUROLOGICAL: Neurological sensation to the affected foot and ankle is present through L4-S1 dermatomes with no hyper/hypoesthesias, negative Tinel or Valleix's sign Urinary Catheter Management: Marsh: Cath Placed During This Visit: yes Reason for Continuing Indwelling Catheter: Accurate Measurement of Urinary Output in Critically Ill Patients Urinary Catheter Date of Insertion: 08/24/24 Urinary Catheter Time of Insertion: 04:54 Data 08/28/24 04:14 08/28/24 04:14 Micro: Microbiology 08/23/24 12:37 Blood Culture - Final Blood NO GROWTH AFTER 5 DAYS 08/23/24 12:37 Blood Culture - Final Blood NO GROWTH AFTER 5 DAYS 08/26/24 10:42 Gram Stain - Final Other Source Anaerobic Culture - Preliminary Wound Culture - Preliminary A&P Assessment and plan (1) Osteomyelitis: (2) Ulcer of left foot with fat layer exposed: (3) Abscess of left foot: Status post incision bone cortex left second metatarsal. Doing well. Cultures pending (4) Venous stasis ulcer: Status post left venous stasis ulcer excisional debridement in OR. Right leg venous stasis ulcerations healing at this time with collagenase enzymatic debridement. We will continue wet-to-dry dressings daily. Podiatry will perform these. Upon discharge patient may be candidate for home health to perform twice weekly compression wraps with Hydrofera Blue dressing. Plan - Left foot abscess, second metatarsal osteomyelitis. Bilateral lower extremity venous stasis ulcerations -Labs and vitals reviewed -Cultures: Wound cultures from 07/01/2024 grew Stenotrophomonas maltophilia and Achromobacter xylosoxidans. OR cultures pending -Abx Vanco/Zosyn -Diet: Okay for diet from podiatry standpoint - No plan for surgical intervention from podiatry during this admission -Pain Mgmt: Per primary -Weight bearing: As tolerated -Dressings: Podiatry changing dressings daily -Continue current Abx therapy until ID and Sensitivity results -Trend labs -Discharge plan: Home versus LTAC. Case discussed with hospitalist. The patient decides that he wants to go home we will need to set up home health for twice weekly compression wraps to bilateral lower extremities. PICC line is placed. He will need long-term IV antibiotics. Patient stated to me at bedside today that he feels that transfer to care facility would be better than going home. Patient admits it will be difficult for him to manage lower extremity wrappings if he is discharged home. -Podiatry will continue to round on patient daily and provide recommendations PDMP PDMP Reviewed: Not Reviewed Attestations Medical Necessity Statement*: See hospitalist note Coding Level of Care Code Acute Code for [facility] Diagnoses Osteomyelitis M86.9 Ulcer of left foot with fat layer exposed L97.522 Abscess of left foot L02.612 Venous stasis ulcer I83.009; L97.909
--- NOTE | 2024-08-28 17:17 | PC.NURSE ---
Report called to ELIZABETH Aguirre on [facility]. Patient and all belongings transferred to 108. Patient agreed he had all belongings.
[2024-08-28 17:50] LABS: Glucose Point of Care 138 mg/dL (70-110)
[2024-08-28] MEDS: acetaminophen 325 mg Tablet 650 MG PO (20:39)
[2024-08-28] MEDS: morphine 4 mg/mL SDV 1 mL 2 MG IVP (21:00)
[2024-08-28 21:21] LABS: Glucose Point of Care 161 mg/dL (70-110)
[2024-08-29] VITALS: BP 126/85; PULSE 104; RESP 16; O2SAT 91
[2024-08-29] MEDS: MEROPENEM 2,000 MG in sodium chloride 0.9% (plus) 50 ML 100 MG IV ×2 (01:23→08:41)
[2024-08-29 04:00] VITALS: BP 136/93; PULSE 101; RESP 21; TEMP 36.7; O2SAT 92
[2024-08-29 06:10] LABS: Glucose Point of Care 107 mg/dL (70-110)
[2024-08-29] MEDS: FUROsemide 10 mg/mL SDV 4mL 40 MG IVP (06:18)
[2024-08-29 07:08] LABS: Basophils # 0.1 10^3/uL (0.0-0.1); Basophils % 1.3 %; Eosinophils % 0.1 %; Hematocrit 36.2 % (37-53); Lymphocytes # 1.3 10^3/uL (0.8-4.8); Lymphocytes % 15.9 %; Mean Corpuscular HGB Conc 31.2 g/dL (30-55); Mean Corpuscular Hemoglobin 26.2 pg (27-33); Mean Platelet Volume 9.5 fL (7.4-10.4); Monocytes # 0.8 10^3/uL (0.2-0.9); Monocytes % 10.6 %; Neutrophils # 5.62 10^3/uL (1.8-7.7); Neutrophils % 71.7 %; Nucleated Red Blood Cells % 0 %; Platelet Count 283 10^3/cmm (157-399); Red Blood Count 4.31 10^6/uL (3.85-5.65); Red Cell Distribution Width 17.2 % (12.1-15.1); White Blood Count 7.84 10^3/uL (3.29-11.43)
[2024-08-29 07:31] LABS: Anion Gap 10.6 (5-19); Blood Urea Nitrogen 22 mg/dL (8-23); Calcium 7.8 mg/dL (8.5-10.5); Carbon Dioxide 35 mmol/L (22-29); Chloride 96 mmol/L (98-107); Creatinine Clr Calc Pharmacy 110.7521; Glucose 100 mg/dL (65-115); Magnesium 1.6 mg/dL (1.7-2.3); Osmolality Calculated 289 mOsm/kg (285-295); Potassium 3.6 mmol/L (3.5-5.1); Sodium 138 mmol/L (136-145)
[2024-08-29 07:35] LABS: Vancomycin Trough 25.7 ug/mL (10-15)
[2024-08-29 08:00] VITALS: BP 137/91; PULSE 96; RESP 16; TEMP 36.7; O2SAT 90
[2024-08-29] MEDS: potassium chloride ER 20 mEq Tablet 40 MEQ PO (08:26)
[2024-08-29] MEDS: sacubitril/valsartan 24-26 mg Tablet 2 EACH PO (08:26)
[2024-08-29] MEDS: aspirin 81 mg EC Tablet PO (08:26)
[2024-08-29] MEDS: pantoprazole DR 40 mg Tablet PO (08:26)
[2024-08-29] MEDS: ciprofloxacin 0.3% Op Soln 2.5 mL Btl 1 DROP EYE-BOTH (08:27)
[2024-08-29] MEDS: heparin 5,000 unit/mL INJ 1 mL 5000 UNIT SUBCUT (08:31)
--- NOTE | 2024-08-29 08:50 | P.PN_ITS ---
Subjective 2 Subjective: Patient is feeling okay. No arrhythmias on the monitor. Vital signs seems to be fairly stable. Remains afebrile. Medications: Medication Review Details: Current Medications Acetaminophen (Acetaminophen 325 Mg Tablet) 650 mg PO Q6H PRN PRN Reason: Mild/Mod Pain Or Temp >/= 101 Last Admin: 08/28/24 20:39 Dose: 650 mg Aspirin (Aspirin 81 Mg Ec Tablet) 81 mg PO DAILY [facility] Last Admin: 08/29/24 08:26 Dose: 81 mg Ciprofloxacin HCl (Ciprofloxacin 0.3% Op Soln 2.5 Ml Btl) 1 drop EYE-BOTH QID [facility]; Protocol Last Admin: 08/29/24 08:27 Dose: 1 drop Collagenase (Collagenase Oint 30 Gm) 1 applic TOPICAL DAILY [facility] Last Admin: 08/28/24 13:59 Dose: 1 applic Furosemide (Furosemide 10 Mg/Ml Sdv 4ml) 40 mg IVP Q12H [facility] Last Admin: 08/29/24 06:18 Dose: 40 mg Glucagon (Glucagon 1 Mg/Ml Kit 1 Ml) 1 mg IM Q15M PRN PRN Reason: HYPOGLYCEMIA Last Admin: 08/25/24 03:05 Dose: 1 mg Heparin Sodium (Porcine) (Heparin 5,000 Unit/Ml Inj 1 Ml) 5,000 unit SUBCUT Q12H [facility] Last Admin: 08/29/24 08:31 Dose: 5,000 unit Dextrose (D5w) 500 mls @ 0 mls/hr IV ONCE PRN; Protocol PRN Reason: Adult Acute Hypoglycemia Prot Dextrose (D10w) 125 mls @ 750 mls/hr IV PRN PRN; Protocol PRN Reason: Adult Acute Hypoglycemia Nursing Protocol Dextrose (D10w) 1,000 mls @ 50 mls/hr IV .Q20H [facility] Last Admin: 08/29/24 00:54 Dose: Not Given Meropenem 2,000 mg/ Sodium (Chloride) 50 mls @ 100 mls/hr IV Q8H [facility] Last Admin: 08/29/24 08:41 Dose: 100 mls/hr Vancomycin HCl (Vancocin) 1,250 mg in 250 mls @ 200 mls/hr IV Q24H [facility] Morphine Sulfate (Morphine 4 Mg/Ml Sdv 1 Ml) 2 mg IVP Q6H PRN PRN Reason: SEVERE PAIN Last Admin: 08/28/24 21:00 Dose: 2 mg Ondansetron HCl (Ondansetron 2 Mg/Ml Sdv 2 Ml) 4 mg IVP Q8H PRN PRN Reason: vomiting, or N/V if npo Pantoprazole Sodium (Pantoprazole Dr 40 Mg Tablet) 40 mg PO DAILY [facility] Last Admin: 08/29/24 08:26 Dose: 40 mg Potassium Chloride (Potassium Chloride Er 20 Meq Tablet) 40 meq PO DAILY [facility] Last Admin: 08/29/24 08: Dose: 40 meq Sacubitril/Valsartan (Sacubitril/Valsartan 24-26 Mg Tablet) 2 each PO BID [facility] Last Admin: 08/29/24: Dose: 2 each Vitals/I&O/Wt Last Vital Signs Temp 98.1 F 08/29/24 04:00 Pulse 101 H 08/29/24 04:00 Resp 21 H 08/29/24 04:00 BP 136/93 08/29/24 04:00 Pulse Ox 92 08/29/24 04:00 O2 Del Method Room Air 08/29/24 04:00 O2 Flow Rate 4 08/25/24 13:30 FiO2 30 08/26/24 08:30 08/28/24 08/29/24 08/29/24 22:59 06:59 14:59 Intake Total 660 / 1440 700 / 2140 Output Total 2750 / 3750 2801 / 6551 Balance -2090 / -2310 -2101 / -4411 Weight last 48 hrs Weight 235 lb Weight 235 lb 14.314 oz Physical Exam 2 Narrative: GENERAL: The patient is alert and oriented times three. Not in any acute distress. Somewhat lethargic HEENT: No significant pallor, icterus or lymphadenopathy.Oral cavity: There are no mucous membrane lesions. NECK: Trachea appears to be central. No masses noted. No JVD or thyromegaly appreciated. RESPIRATORY: Chest is symmetrical. No intercostals muscle retraction or any accessory muscle activation. There is no chest wall tenderness. Breath sounds are heard bilaterally. No rales or rhonchi heard. No evidence of any consolidation. BREASTS: Deferred. HEART: The heart sounds are normal. No S3 or S4. No significant murmurs. No pericardial rub ABDOMEN: No vessel pulsations or distention. No tenderness. No organomegaly appreciated. Bowel sounds are normally heard. : Deferred. RECTAL: Deferred. LYMPHATIC: No lymphadenopathy noted in the neck or groin. EXTREMITIES:1- 2-+ edema bilaterally.. Redness in both lower extremities and are bandaged. MUSCULOSKELETAL: No acute joint deformities or swelling SKIN: There are no significant scars or skin rash noted. NEUROPSYCHIATRIC: The patient is alert and oriented x3. Appears to be in a good mood. No tremors or rigidity noted. Urinary Catheter Management: Marsh: Cath Placed During This Visit: yes Reason for Continuing Indwelling Catheter: Accurate Measurement of Urinary Output in Critically Ill Patients Urinary Catheter Date of Insertion: 08/24/24 Urinary Catheter Time of Insertion: 04:54 Data 08/29/24 06:58 08/29/24 06:58 Other Labs: Laboratory Last Values WBC 7.84 10^3/uL (3.29-11.43) 08/29/24 06:58 RBC 4.31 10^6/uL (3.85-5.65) 08/29/24 06:58 Hgb 11.30 g/dL (11.27-16.99) 08/29/24 06:58 Hct 36.2 % (37-53) L 08/29/24 06:58 MCV 84.0 fl (82-101) 08/29/24 06:58 MCH 26.2 pg (27-33) L 08/29/24 06:58 MCHC 31.2 g/dL (30-55) 08/29/24 06:58 RDW 17.2 % (12.1-15.1) H 08/29/24 06:58 Plt Count 283 10^3/cmm (157-399) 08/29/24 06:58 MPV 9.5 fL (7.4-10.4) 08/29/24 06:58 Neut % (Auto) 71.7 % 08/29/24 06:58 Lymph % (Auto) 15.9 % 08/29/24 06:58 Swisher % (Auto) 10.6 % 08/29/24 06:58 Eos % (Auto) 0.1 % 08/29/24 06:58 Baso % (Auto) 1.3 % 08/29/24 06:58 Neut # (Auto) 5.62 10^3/uL (1.8-7.7) 08/29/24 06:58 Lymph # (Auto) 1.3 10^3/uL (0.8-4.8) 08/29/24 06:58 Swisher # (Auto) 0.8 10^3/uL (0.2-0.9) 08/29/24 06:58 Eos # (Auto) 0.0 10^3/uL (0.0-0.8) 08/29/24 06:58 Baso # (Auto) 0.1 10^3/uL (0.0-0.1) 08/29/24 06:58 Nucleated RBC % (auto) 0 % 08/29/24 06:58 Nucleated RBCs # 0.0 /100WBC 08/29/24 06:58 Specimen Type Arterial 08/26/24 03:56 Sample Site Radial, right 08/26/24 03:56 ABG pH 7.39 (7.35-7.45) 08/26/24 03:56 ABG pCO2 52.2 mmHg (35-45) H 08/26/24 03:56 ABG pO2 84.0 mmHg (80.0-100.0) 08/26/24 03:56 ABG PO2/FiO2 Ratio 280 08/26/24 03:56 ABG HCO3 31.3 mmol/L (22-26) H 08/26/24 03:56 ABG O2 Saturation 98.6 08/25/24 10:16 ABG Base Excess 5.3 mmol/L (-2.0-2.0) H 08/26/24 03:56 Shawn Test Pos 08/26/24 03:56 A-a O2 Gradient 10.1 mmHg (5-10) H 08/25/24 10:16 Hematocrit 32.5 % (42-52) L 08/26/24 03:56 Hgb O2 Saturation 95.9 % (95-100) 08/25/24 10:16 Carboxyhemoglobin 1.8 %THgb (0.4-20.1) 08/25/24 10:16 Methemoglobin 0.9 % (0.4-1.5) 08/25/24 10:16 Total Hemoglobin 10.8 g/dL (14-18) L 08/25/24 10:16 Sodium 141.0 mmol/L (131-143) 08/25/24 10:16 Potassium 3.6 mmol/L (3.5-5.0) 08/25/24 10:16 Glucose 124.0 mg/dL (70-115) H 08/25/24 10:16 Ionized Calcium 1.2 mmol/L (1.1-1.4) 08/25/24 10:16 O2 Delivery Device Bipap 08/26/24 03:56 O2 Liters/Min 4.0 % 08/25/24 10:16 FiO2 30.0 % 08/26/24 03:56 Tidal Volume 0.55 08/26/24 03:56 PEEP 8.0 cmH20 08/26/24 03:56 Specialty Food Products Supervisor ID [id number] 08/26/24 03:56 Sodium 138 mmol/L (136-145) 08/29/24 06:58 Potassium 3.6 mmol/L (3.5-5.1) 08/29/24 06:58 Chloride 96 mmol/L (98-107) L 08/29/24 06:58 Carbon Dioxide 35 mmol/L (22-29) H 08/29/24 06:58 Anion Gap 10.6 (5-19) 08/29/24 06:58 BUN 22 mg/dL (8-23) 08/29/24 06:58 Creatinine 0.8 mg/dL (0.7-1.2) 08/29/24 06:58 GFR Calculation 97.0 mL/min (90-130) 08/29/24 06:58 Glucose 100 mg/dL (65-115) 08/29/24 06:58 POC Glucose 107 mg/dL (70-110) 08/29/24 06:06 Estimat Average Glucose 114 08/23/24 12:37 Hemoglobin A1c 5.6 % (4.0-6.0) 08/23/24 12:37 Calculated Osmolality 289 mOsm/kg (285-295) 08/29/24 06:58 Lactic Acid 2.1 mmol/L (0.5-2.2) 08/23/24 15:20 Lactic Acid (Sepsis) 2.1 mmol/L (0.5-2.2) 08/23/24 18:41 Calcium 7.8 mg/dL (8.5-10.5) L 08/29/24 06:58 Phosphorus 2.4 mg/dL (2.5-4.5) L 08/27/24 05:14 Magnesium 1.6 mg/dL (1.7-2.3) L 08/29/24 06:58 Total Bilirubin 1.1 mg/dL (0.15-1.2) 08/26/24 02:36 AST 15 U/L (0-40) 08/26/24 02:36 ALT 9 U/L (0-41) 08/26/24 02:36 Alkaline Phosphatase 134 U/L (40-130) H 08/26/24 02:36 NT-Pro-B Natriuret Pep 5959 pg/mL (0-125) H 08/24/24 20:51 Total Protein 5.5 g/dL (6.6-8.7) L 08/26/24 02:36 Albumin 3.0 g/dL (3.5-5.2) L 08/26/24 02:36 Globulin 2.5 g/dL (1.3-4.6) 08/26/24 02:36 Urine Color Dark yellow (Yellow) A 08/23/24 14:46 Urine Appearance Clear (CLEAR) 08/23/24 14:46 Urine pH 5.5 (5-7) 08/23/24 14:46 Ur Specific [place] 1.026 (1.005-1.030) 08/23/24 14:46 Urine Protein 2+ (Negative) A 08/23/24 14:46 Urine Glucose (UA) Negative (Normal) 08/23/24 14:46 Urine Ketones Trace (Negative) 08/23/24 14:46 Urine Blood Negative (Negative) 08/23/24 14:46 Urine Nitrate Negative (Negative) 08/23/24 14:46 Urine Bilirubin 1+ (Negative) H 08/23/24 14:46 Urine Urobilinogen 2.0 mg/dL (Negative) H 08/23/24 14:46 Ur Leukocyte Esterase Negative (Negative) 08/23/24 14:46 Urine RBC 3-5 /hpf (0-2) 08/23/24 14:46 Urine WBC 0-5 /hpf (0-5) 08/23/24 14:46 Ur Squamous Epith Cells 0-5 /hpf (0-5) 08/23/24 14:46 Calcium Oxalate Crystal 0-4 /hpf H 08/23/24 14:46 Amorphous Sediment 1+ /hpf 08/23/24 14:46 Urine Bacteria Trace /hpf (NONE) 08/23/24 14:46 Hyaline Casts 1.65 /lpf 08/23/24 14:46 Vancomycin Trough 25.7 ug/mL (10-15) H* 08/29/24 06:58 Micro: Microbiology 08/26/24 10:42 Gram Stain - Final Other Source Anaerobic Culture - Preliminary Wound Culture - Preliminary Staphylococcus species 08/23/24 12:37 Blood Culture - Final Blood NO GROWTH AFTER 5 DAYS 08/23/24 12:37 Blood Culture - Final Blood NO GROWTH AFTER 5 DAYS A&P Assessment and plan (1) Congestive heart failure: The heart failure seems to be compensated. May continue on the current medications. Seems to be tolerating the Entresto so far well. I will add spironolactone 25 mg p.o. daily He is tolerating the medication so far well. The kidney function is appropriate. Qualifiers: Heart failure chronicity: acute on chronic Heart failure type: systolic Qualified Code(s): I50.23 - Acute on chronic systolic (congestive) heart failure (2) Nonischemic congestive cardiomyopathy: Patient is known to have severe LV systolic dysfunction with an ejection fraction of 15%. Hemodynamically seems to be stable. Discussed about the prophylactic ICD. Apparently this patient was on a LifeVest. Because of the inconvenience, he stopped using it and returned the device. Discussed about upgrading the pacemaker to a defibrillator. Patient is undecided about this. Because of the nonhealing ulcer, we may have to wait till the ulcer is completely healed before putting in the device. This conversation was understood by the patient while. If the patient is going to [place], need to make arrangements to have follow-up evaluation with a fruit loader in [place] (3) Hypertension: Entresto 49/51 twice daily. Currently on her medications. Continue on the other current medications as it is. The blood pressure seems to be slowly getting under control. Qualifiers: Hypertension type: primary hypertension Qualified Code(s): I10 - Essential (primary) hypertension (4) Bilateral cellulitis of lower leg: On IV antibiotics. 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 Patient on IV antibiotics. Seems to be responding appropriately. Remaining afebrile. No new symptoms. (5) Presence of permanent cardiac pacemaker: The pacemaker function appears to be appropriate. Continue on the current management. Plan Other problems are Acute kidney injury,, kidney function has returned back to baseline. Type 2 diabetes Anemia, stable Hypokalemi, currently normokalemic Uptitration of the Entresto as outpatient Encourage ambulation Disposition as per the primary Management arrangements to be followed up by cardiology in [place], if the patient is going to be staying there for a while PDMP PDMP Reviewed: Not Reviewed Attestations 2 Medical Necessity Statement*: Deferred to the primary Coding Level of Care Code 34697 Diagnoses Acute on chronic systolic congestive heart failure I50.23 Heart failure chronicity: acute on chronic Heart failure type: systolic Nonischemic congestive cardiomyopathy I42.0 Primary hypertension I10 Hypertension type: primary hypertension Bilateral cellulitis of lower leg L03.116; L03.115 Presence of permanent cardiac pacemaker Z95.0
[2024-08-29 11:13] LABS: Glucose Point of Care 272 mg/dL (70-110)
--- NOTE | 2024-08-29 11:56 | P.TS_ITS ---
Transfer Summary Providers Date of Admission: 08/23/24 18:34 Date of Discharge/Transfer: 08/29/24 Attending Provider at Admission: Adriana Andres MD Attending Provider at Transfer: Margo Hernandez MD Primary Care Provider: Itz Pierson MD Transfer Plans: Anticipated date of transfer: 08/29/24 . Receiving Facility: [facility] . Receiving Provider: Dr. Espinal . Diagnoses at Discharge Discharge Diagnosis (1) Congestive heart failure: Status: Inactive Qualifiers: Heart failure chronicity: acute on chronic Heart failure type: systolic Qualified Code(s): I50.23 - Acute on chronic systolic (congestive) heart failure (2) Nonischemic congestive cardiomyopathy: Status: Acute (3) Hypertension: Status: Chronic Qualifiers: Hypertension type: primary hypertension Qualified Code(s): I10 - Essential (primary) hypertension (4) Bilateral cellulitis of lower leg: Status: Acute (5) Presence of permanent cardiac pacemaker: Status: Acute Reason for Visit Reason for Visit hector open legs wounds Brief History: Ely Hare is a 64 year old male with Hx of HTN, HLD, RA, OA, cardiomyopathy with last known ejection fraction of 15% who is presenting to the hospital today with chief complaints of worsening lower extremity wounds. He states that he visited his PCP for a bandage change today, however he was sent to the ER because his wounds looked to be purulent, foul-smelling. It appears he has not been compliant with medications. He states that his current wounds developed about 3 months ago. He thinks his wounds are no worse than when the first started, however they are noted to be dr david del rio over the right chowdhury wound and also over the left foot near the site of an old gangrene. He appears to have poor circulation bilaterally. He has been awaiting a LifeVest. He has a pacemaker placed in June 2024. Additionally had a second toe amputation. He was admitted to the hospital in June 2024 for infected wounds and was discharged with 2 weeks of IV antibiotics including ertapenem 1 g daily and oral linezolid. Lower extremity BLAINE on 04/24/2024 showed normal resting ABIs. Venous duplex is negative today for DVT. He is noted to have anasarca Hospital Course Hospital Course 64-year-old male currently admitted with chief complaints of worsening lower extremity wounds Patient has open wounds of the right tibial chowdhury, noted to have puslike drainage. Additional wounds over noted over the left and right foot. Over the left foot there is an area of past-pointing and drainage in the second metatarsal space.Podiatry was consulted. Patient has extensive history of bilateral lower extremity edema and chronic ulcerations. Most recently underwent bilateral lower extremity venous ulcer debridement during past hospital stay.Patient underwent left leg ulcer debridement on 06/12/2024 with subsequent debridement of right leg ulcers on 06/13/2024. This was due to patient's poor cardiac history. Patient also has history of left foot second toe amputation. This was performed May 2024 at [place] during same admission for pacemaker implantation. Patient has had worsening wound at amputation site left foot. CT scan obtained during admission revealed osteomyelitis of second metatarsal head with abscess formation and phlegmon. Patient underwent incision bone cortex left second metatarsal, excisional wound debridement left leg down to level of fascia. Second metatarsal left foot removed. ID was consulted. At this point plan to send patient to long-term care facility for 6 weeks of IV antibiotics with Vanco and meropenem. IV antibiotics have been set up. Patient will need daily dressing changes as per recommendations from podiatry. PICC line has been placed. Additionally cardiology was consulted for preop clearance for surgery. Patient does have known severe cardiomyopathy LVEF 15 to 20% status post pacemaker placement which needs to be converted to AICD after his infection has been cleared (discussed with cardiology). He was admitted with worsening heart failure volume overload related symptoms. Patient was placed on Lasix 40 IV twice daily and appears to be very euvolemic at this time. Cardiac nava his stay has been uneventful. he will be on lasix 40 oral daily, spironolactone 25 daily, home dose entresto going forward. Coreg was initially held during hospitalization secondary to low blood pressure however that has been restarted at 3.125 twice daily. He is to continue on his medications and follow-up with cardiology as an outpatient within 7 to 10 days. Renal function has remained stable. Magnesium was low this morning at 1.6. 2 g was ordered. Patient to follow-up with ID after discharge as well. Cardiac medications discussed with cardiology prior to discharge. Patient will be discharged to long-term care facility at this time. All questions answered to patient satisfaction. Physical Exam Narrative: General: Alert oriented x3, patient seen laying in bed, on room air HEENT: Normocephalic, atraumatic, EOMI, Cardio: Regular rate rhythm, normal S1-S2, Respiratory: Good bilateral air entry, no wheezes no rhonchi appreciated GI: Abdomen soft, nontender, nondistended, bowel sounds + Extremities: both b/l LE wrapped with compression wraps. Urinary Catheter Management: Marsh: Cath Placed During This Visit: yes Reason for Continuing Indwelling Catheter: Accurate Measurement of Urinary Output in Critically Ill Patients Urinary Catheter Date of Insertion: 08/24/24 Urinary Catheter Time of Insertion: 04:54 TS Data Studies Completed and Pending Pending at discharge Category Date Time Status Anaerobic Culture Routine Lab 08/26/24 10:42 Results Wound Culture and Gram Stain Routine Lab 08/26/24 10:42 Results Pathology: Surgical [PTH] Routine Pth 08/26/24 11:15 Received Completed Studies During Hospitalization Category Date Time Status CT foot LT wo con* [id number] Routine Cat Scan 08/23/24 17:[address] foot RT wo con* [id number] Routine Cat Scan 08/23/24 17:[address] lower leg RT wo con* [id number] Routine Cat Scan 08/23/24 17:00 Completed CXRP [XR chest 1V portable [id number]] Routine Exams 08/24/24 14:06 Completed CXRP [XR chest 1V portable [id number]] Routine Exams 08/26/24 07:19 Completed US venous duplex lower extremity bilat [CV venous Ultrasound 08/23/24 12:14 [place] [id number]] Stat Laboratory Last Values WBC 7.84 10^3/uL (3.29-11.43) 08/29/24 06:58 RBC 4.31 10^6/uL (3.85-5.65) 08/29/24 06:58 Hgb 11.30 g/dL (11.27-16.99) 08/29/24 06:58 Hct 36.2 % (37-53) L 08/29/24 06:58 MCV 84.0 fl (82-101) 08/29/24 06:58 MCH 26.2 pg (27-33) L 08/29/24 06:58 MCHC 31.2 g/dL (30-55) 08/29/24 06:58 RDW 17.2 % (12.1-15.1) H 08/29/24 06:58 Plt Count 283 10^3/cmm (157-399) 08/29/24 06:58 MPV 9.5 fL (7.4-10.4) 08/29/24 06:58 Neut % (Auto) 71.7 % 08/29/24 06:58 Lymph % (Auto) 15.9 % 08/29/24 06:58 Cascade % (Auto) 10.6 % 08/29/24 06:58 Eos % (Auto) 0.1 % 08/29/24 06:58 Baso % (Auto) 1.3 % 08/29/24 06:58 Neut # (Auto) 5.62 10^3/uL (1.8-7.7) 08/29/24 06:58 Lymph # (Auto) 1.3 10^3/uL (0.8-4.8) 08/29/24 06:58 Cascade # (Auto) 0.8 10^3/uL (0.2-0.9) 08/29/24 06:58 Eos # (Auto) 0.0 10^3/uL (0.0-0.8) 08/29/24 06:58 Baso # (Auto) 0.1 10^3/uL (0.0-0.1) 08/29/24 06:58 Nucleated RBC % (auto) 0 % 08/29/24 06:58 Nucleated RBCs # 0.0 /100WBC 08/29/24 06:58 Specimen Type Arterial 08/26/24 03:56 Sample Site Radial, right 08/26/24 03:56 ABG pH 7.39 (7.35-7.45) 08/26/24 03:56 ABG pCO2 52.2 mmHg (35-45) H 08/26/24 03:56 ABG pO2 84.0 mmHg (80.0-100.0) 08/26/24 03:56 ABG PO2/FiO2 Ratio 280 08/26/24 03:56 ABG HCO3 31.3 mmol/L (22-26) H 08/26/24 03:56 ABG O2 Saturation 98.6 08/25/24 10:16 ABG Base Excess 5.3 mmol/L (-2.0-2.0) H 08/26/24 03:56 Shawn Test Pos 08/26/24 03:56 A-a O2 Gradient 10.1 mmHg (5-10) H 08/25/24 10:16 Hematocrit 32.5 % (42-52) L 08/26/24 03:56 Hgb O2 Saturation 95.9 % (95-100) 08/25/24 10:16 Carboxyhemoglobin 1.8 %THgb (0.4-20.1) 08/25/24 10:16 Methemoglobin 0.9 % (0.4-1.5) 08/25/24 10:16 Total Hemoglobin 10.8 g/dL (14-18) L 08/25/24 10:16 Sodium 141.0 mmol/L (131-143) 08/25/24 10:16 Potassium 3.6 mmol/L (3.5-5.0) 08/25/24 10:16 Glucose 124.0 mg/dL (70-115) H 08/25/24 10:16 Ionized Calcium 1.2 mmol/L (1.1-1.4) 08/25/24 10:16 O2 Delivery Device Bipap 08/26/24 03:56 O2 Liters/Min 4.0 % 08/25/24 10:16 FiO2 30.0 % 08/26/24 03:56 Tidal Volume 0.55 08/26/24 03:56 PEEP 8.0 cmH20 08/26/24 03:56 Outpatient Therapist ID [id number] 08/26/24 03:56 Sodium 138 mmol/L (136-145) 08/29/24 06:58 Potassium 3.6 mmol/L (3.5-5.1) 08/29/24 06:58 Chloride 96 mmol/L (98-107) L 08/29/24 06:58 Carbon Dioxide 35 mmol/L (22-29) H 08/29/24 06:58 Anion Gap 10.6 (5-19) 08/29/24 06:58 BUN 22 mg/dL (8-23) 08/29/24 06:58 Creatinine 0.8 mg/dL (0.7-1.2) 08/29/24 06:58 GFR Calculation 97.0 mL/min (90-130) 08/29/24 06:58 Glucose 100 mg/dL (65-115) 08/29/24 06:58 POC Glucose 272 mg/dL (70-110) H 08/29/24 11:02 Estimat Average Glucose 114 08/23/24 12:37 Hemoglobin A1c 5.6 % (4.0-6.0) 08/23/24 12:37 Calculated Osmolality 289 mOsm/kg (285-295) 08/29/24 06:58 Lactic Acid 2.1 mmol/L (0.5-2.2) 08/23/24 15:20 Lactic Acid (Sepsis) 2.1 mmol/L (0.5-2.2) 08/23/24 18:41 Calcium 7.8 mg/dL (8.5-10.5) L 08/29/24 06:58 Phosphorus 2.4 mg/dL (2.5-4.5) L 08/27/24 05:14 Magnesium 1.6 mg/dL (1.7-2.3) L 08/29/24 06:58 Total Bilirubin 1.1 mg/dL (0.15-1.2) 08/26/24 02:36 AST 15 U/L (0-40) 08/26/24 02:36 ALT 9 U/L (0-41) 08/26/24 02:36 Alkaline Phosphatase 134 U/L (40-130) H 08/26/24 02:36 NT-Pro-B Natriuret Pep 5959 pg/mL (0-125) H 08/24/24 20:51 Total Protein 5.5 g/dL (6.6-8.7) L 08/26/24 02:36 Albumin 3.0 g/dL (3.5-5.2) L 08/26/24 02:36 Globulin 2.5 g/dL (1.3-4.6) 08/26/24 02:36 Urine Color Dark yellow (Yellow) A 08/23/24 14:46 Urine Appearance Clear (CLEAR) 08/23/24 14:46 Urine pH 5.5 (5-7) 08/23/24 14:46 Ur Specific Woodruff 1.026 (1.005-1.030) 08/23/24 14:46 Urine Protein 2+ (Negative) A 08/23/24 14:46 Urine Glucose (UA) Negative (Normal) 08/23/24 14:46 Urine Ketones Trace (Negative) 08/23/24 14:46 Urine Blood Negative (Negative) 08/23/24 14:46 Urine Nitrate Negative (Negative) 08/23/24 14:46 Urine Bilirubin 1+ (Negative) H 08/23/24 14:46 Urine Urobilinogen 2.0 mg/dL (Negative) H 08/23/24 14:46 Ur Leukocyte Esterase Negative (Negative) 08/23/24 14:46 Urine RBC 3-5 /hpf (0-2) 08/23/24 14:46 Urine WBC 0-5 /hpf (0-5) 08/23/24 14:46 Ur Squamous Epith Cells 0-5 /hpf (0-5) 08/23/24 14:46 Calcium Oxalate Crystal 0-4 /hpf H 08/23/24 14:46 Amorphous Sediment 1+ /hpf 08/23/24 14:46 Urine Bacteria Trace /hpf (NONE) 08/23/24 14:46 Hyaline Casts 1.65 /lpf 08/23/24 14:46 Vancomycin Trough 25.7 ug/mL (10-15) H* 08/29/24 06:[address] 08/23/24 17:00 IMPRESSION: 1. There is diffuse skin thickening and subcutaneous edema of the lower leg, ankle and foot may reflect cellulitis, lymphedema or venous stasis. No localized fluid collection or abscess. 2. No bony destruction or osteomyelitis. No acute fracture or dislocation. 3. Large peroneal tubercle of the lateral calcaneus with adjacent bony erosion/divot of the lateral calcaneus compatible with reactive changes to severe chronic peroneal tendinopathy. 4. There is marked enlargement of the peroneus longus and less prominently the peroneus brevis tendons compatible with marked tendinopathy and tenosynovitis. Lower Extremity CT 08/23/24 17:00 IMPRESSION: 1. There is interval increasing abundant soft tissue edema and skin thickening of the entire lower leg and visualized hindfoot may reflect cellulitis, lymphedema or venous stasis. There is also a divot or defect of the skin surface of the anteromedial mid to distal 3rd and posterolateral mid to distal 3rd of the leg concerning for soft tissue ulcer without localized fluid collection or abscess. 2. No intramuscular abscess. No compartment syndrome. No gas in the muscles or soft tissues. 3. Directly beneath the defect of the skin surface/ulcer, there is subtle periosteal reaction of the anteromedial tibia compatible with reactive changes or very early superficial osteomyelitis. The density of the tibia is preserved. There is no destruction of the deeper bony cortex, endosteal remodeling or destruction in the marrow trabecular pattern. Specifically, this has a very superficial appearance and may reflect reactive changes to cellulitis. No additional bony destruction osteomyelitis. Chest X-Ray 08/26/24 07:19 IMPRESSION: 1. Right-sided PICC line ending at the cavoatrial junction in satisfactory position. 2. Cardiac enlargement unchanged. Recent Clincial Data Last Vital Signs Temp 98.0 F 08/29/24 08:00 Pulse 96 08/29/24 08:00 Resp 16 08/29/24 08:00 BP 137/91 08/29/24 08:00 Pulse Ox 90 08/29/24 08:00 O2 Del Method Room Air 08/29/24 08:00 O2 Flow Rate 4 08/25/24 13:30 FiO2 30 08/26/24 08:30 Vital Signs Temp Pulse Resp BP Pulse Ox O2 Del Method 08/29/24 08:00 98.0 F 96 16 137/91 90 Room Air 08/29/24 04:00 98.1 F 101 H 21 H 136/93 92 Room Air 08/29/24 00:00 104 H 16 126/85 91 Room Air Intake & Output/Weight 08/27/24 08/28/24 08/29/24 08/30/24 06:59 06:59 06:59 06:59 Intake Total 1845.833 / 4580.914 8982 / 1280 2140 / 2140 360 / 360 Output Total 8100 / 8100 3300 / 3300 6551 / 6551 1500 / 1500 Balance -6254.167 / -6254.167 -2019 / -2020 -4411 / -4411 -1140 / -1140 Weight 107 kg 107 kg 106.594 kg Vitals Last Vital Signs Temp 98.0 F 08/29/24 08:00 Pulse 96 08/29/24 08:00 Resp 16 08/29/24 08:00 BP 137/91 08/29/24 08:00 Pulse Ox 90 08/29/24 08:00 O2 Del Method Room Air 08/29/24 08:00 O2 Flow Rate 4 08/25/24 13:30 FiO2 30 08/26/24 08:30 TS Medications Medications Acetaminophen (Acetaminophen 325 Mg Tablet) 650 mg PO Q6H PRN PRN Reason: Mild/Mod Pain Or Temp >/= 101 Last Admin: 08/28/24 20:39 Dose: 650 mg Aspirin (Aspirin 81 Mg Ec Tablet) 81 mg PO DAILY [facility] Last Admin: 08/29/24 08:26 Dose: 81 mg Ciprofloxacin HCl (Ciprofloxacin 0.3% Op Soln 2.5 Ml Btl) 1 drop EYE-BOTH QID [facility]; Protocol Last Admin: 08/29/24 08:27 Dose: 1 drop Collagenase (Collagenase Oint 30 Gm) 1 applic TOPICAL DAILY [facility] Last Admin: 08/29/24 10:34 Dose: Not Given Furosemide (Furosemide 10 Mg/Ml Sdv 4ml) 40 mg IVP Q12H [facility] Last Admin: 08/29/24 06:18 Dose: 40 mg Glucagon (Glucagon 1 Mg/Ml Kit 1 Ml) 1 mg IM Q15M PRN PRN Reason: HYPOGLYCEMIA Last Admin: 08/25/24 03:05 Dose: 1 mg Heparin Sodium (Porcine) (Heparin 5,000 Unit/Ml Inj 1 Ml) 5,000 unit SUBCUT Q12H [facility] Last Admin: 08/29/24 08:31 Dose: 5,000 unit Dextrose (D5w) 500 mls @ 0 mls/hr IV ONCE PRN; Protocol PRN Reason: Adult Acute Hypoglycemia Prot Dextrose (D10w) 125 mls @ 750 mls/hr IV PRN PRN; Protocol PRN Reason: Adult Acute Hypoglycemia Nursing Protocol Dextrose (D10w) 1,000 mls @ 50 mls/hr IV .Q20H [facility] Last Admin: 08/29/24 00:54 Dose: Not Given Meropenem 2,000 mg/ Sodium (Chloride) 50 mls @ 100 mls/hr IV Q8H [facility] Last Admin: 08/29/24 08:41 Dose: 100 mls/hr Vancomycin HCl (Vancocin) 1,250 mg in 250 mls @ 200 mls/hr IV Q24H [facility] Morphine Sulfate (Morphine 4 Mg/Ml Sdv 1 Ml) 2 mg IVP Q6H PRN PRN Reason: SEVERE PAIN Last Admin: 08/28/24 21:00 Dose: 2 mg Ondansetron HCl (Ondansetron 2 Mg/Ml Sdv 2 Ml) 4 mg IVP Q8H PRN PRN Reason: vomiting, or N/V if npo Pantoprazole Sodium (Pantoprazole Dr 40 Mg Tablet) 40 mg PO DAILY [facility] Last Admin: 08/29/24 08:26 Dose: 40 mg Potassium Chloride (Potassium Chloride Er 20 Meq Tablet) 40 meq PO DAILY [facility] Last Admin: 08/29/24 08:26 Dose: 40 meq Sacubitril/Valsartan (Sacubitril/Valsartan 24-26 Mg Tablet) 2 each PO BID [facility] Last Admin: 08/29/24 08:26 Dose: 2 each Discontinued Medications Hydrocodone Bitart/Acetaminophen (Hydrocodone-Acetaminophen 5-325 Mg Tablet) 1 tab PO ONCE ONE Stop: 08/27/24 15:01 Last Admin: 08/27/24 16:00 Dose: 1 tab Bupivacaine HCl (Bupivacaine 0.5% Inj 10 Ml) Confirm Administered Dose 30 ml .ROUTE .STK-MED ONE Stop: 08/26/24 10:25 Carvedilol (Carvedilol 6.25 Mg Tablet) 6.25 mg PO BID [facility] Last Admin: 08/24/24 17:50 Dose: Not Given Dexamethasone (Dexamethasone 4 Mg/Ml Inj) Confirm Administered Dose 4 mg .ROUTE .STK-MED ONE Stop: 08/26/24 09:33 Last Admin: 08/26/24 11:15 Dose: Not Given Furosemide (Furosemide 10 Mg/Ml Sdv 4ml) 40 mg IVP BID [facility] Last Admin: 08/24/24 17:05 Dose: Not Given Furosemide (Furosemide 10 Mg/Ml Sdv 10ml) Confirm Administered Dose 200 mg .ROUTE .STK-MED ONE Stop: 08/25/24 03:58 Furosemide (Furosemide 10 Mg/Ml Sdv 10ml) Confirm Administered Dose 200 mg .ROUTE .STK-MED ONE Stop: 08/25/24 23:35 Glucagon (Glucagon 1 Mg/Ml Kit 1 Ml) 1 mg IM ONCE PRN; Protocol PRN Reason: Adult Acute Hypoglycemia Nursing Prot. Glucagon (Glucagon 1 Mg/Ml Kit 1 Ml) 1 mg IM ONCE PRN; Protocol PRN Reason: Adult Acute Hypoglycemia Nursing Prot. Last Admin: 08/24/24 20:05 Dose: 1 mg Heparin Sodium (Porcine) (Heparin 5,000 Unit/Ml Inj 1 Ml) 5,000 unit SUBCUT Q12H [facility] Last Admin: 08/23/24 18:13 Dose: 5,000 unit Vancomycin HCl 1,000 mg/ (Sodium Chloride) 250 mls @ 250 mls/hr IV ONCE ONE; Protocol Stop: 08/23/24 14:18 Last Admin: 08/23/24 13:36 Dose: 250 mls/hr Piperacillin Sod/Tazobactam (Sod / Sodium Chloride) 50 mls @ 0 mls/hr [id number] [facility]; Protocol Vancomycin HCl / Sodium (Chloride) 250 mls @ 0 mls/hr [id number] PROTOCOL [facility]; Protocol Dextrose (D5w) 500 mls @ 0 mls/hr IV ONCE PRN; Protocol PRN Reason: Adult Acute Hypoglycemia Prot Dextrose (D10w) 125 mls @ 750 mls/hr IV PRN PRN; Protocol PRN Reason: Adult Acute Hypoglycemia Nursing Protocol Dextrose (D10w) 250 mls @ 1,000 mls/hr IV PRN PRN; Protocol PRN Reason: Adult Acute Hypoglycemia Nursing Protocol Dextrose (D10w) 250 mls @ 1,000 mls/hr IV PRN PRN; Protocol PRN Reason: Adult Acute Hypoglycemia Nursing Protocol Last Infusion: 08/24/24 20:59 Dose: Infused Piperacillin Sod/Tazobactam (Sod 3.375 gm/ Sodium Chloride) 50 mls @ 12.5 mls/hr IV Q8H [facility] Last Infusion: 08/24/24 19:13 Dose: Infused Vancomycin HCl (Vancocin) 1,750 mg in 350 mls @ 175 mls/hr IV Q12H [facility] Last Infusion: 08/24/24 02:39 Dose: Infused Vancomycin HCl (Vancocin) 1,500 mg in 300 mls @ 200 mls/hr IV Q18H [facility] Last Infusion: 08/25/24 14:51 Dose: Infused Dexmedetomidine/Sodium Chloride (Precedex) 400 mcg in 100 mls @ 0 mls/hr IV .Q0M [facility]; Protocol Last Titration: 08/24/24 19:30 Dose: 0 mcg/kg/hr, 0 mls/hr Furosemide 100 mg/ Sodium (Chloride) 50 mls @ 0 mls/hr IV .Q0M [facility]; Protocol Furosemide 200 mg/ Sodium (Chloride) 100 mls @ 0 mls/hr IV .Q0M [facility]; Protocol Last Titration: 08/26/24 19:42 Dose: 0 mg/hr, 0 mls/hr Sodium Chloride (Sodium Chloride 0.9% (100 Ml)) Confirm Administered Dose 100 mls @ as directed .ROUTE .[facility] ONE Stop: 08/25/24 04:00 Last Admin: 08/25/24 04:10 Dose: Not Given Sodium Chloride (Sodium Chloride 0.9% (100 Ml)) Confirm Administered Dose 100 mls @ as directed .ROUTE .[facility] ONE Stop: 08/25/24 23:37 Last Admin: 08/26/24 00:15 Dose: Not Given Vancomycin HCl (Vancocin) 1,250 mg in 250 mls @ 200 mls/hr IV Q24H [facility] Vancomycin HCl (Vancocin) 1,250 mg in 250 mls @ 200 mls/hr IV Q24H [facility] Last Infusion: 08/27/24 20:20 Dose: Infused Magnesium Sulfate (Magnesium Sulfate Premix) 2 gm in 50 mls @ 50 mls/hr IV ONCE ONE Stop: 08/27/24 14:12 Last Infusion: 08/27/24 20:21 Dose: Infused Vancomycin HCl (Vancocin) 1,250 mg in 250 mls @ 200 mls/hr IV Q12H [facility] Last Infusion: 08/28/24 22:41 Dose: Infused Insulin Human Lispro (Insulin Lispro 100 Unit/1 Ml) 0 unit SUBCUT WM&BEDTIME [facility]; Protocol Last Admin: 08/24/24 21:02 Dose: Not Given Lidocaine HCl (Lidocaine 2% Inj 20 Ml) Confirm Administered Dose 20 ml .ROUTE .[facility] ONE Stop: 08/26/24 09:33 Last Admin: 08/26/24 11:15 Dose: Not Given Meropenem (Meropenem 1,000 Mg Sdv) 1,000 mg IVP Q8H [facility]; Protocol Last Admin: 08/26/24 05:12 Dose: 1,000 mg Meropenem (Meropenem 1,000 Mg Sdv) 1,000 mg IVP Q8H [facility]; Protocol Last Admin: 08/28/24 16:37 Dose: Not Given Meropenem (Meropenem 1,000 Mg Sdv) 2,000 mg IVP Q8H [facility]; Protocol Last Admin: 08/28/24 16:37 Dose: Not Given Octreotide Acetate (Octreotide 100 Mcg/Ml Sdv) 25 mcg IVP ONCE ONE Stop: 08/24/24 20:39 Last Admin: 08/24/24 21:01 Dose: 25 mcg Octreotide Acetate (Octreotide 100 Mcg/Ml Sdv) 25 mcg IVP ONCE ONE Stop: 08/24/24 23:05 Last Admin: 08/24/24 23:11 Dose: 25 mcg Ondansetron HCl (Ondansetron 2 Mg/Ml Sdv 2 Ml) 4 mg IVP ONCE ONE Stop: 08/23/24 12:15 Last Admin: 08/23/24 13:11 Dose: 4 mg Potassium Chloride (Potassium Chloride Er 20 Meq Tablet) 20 meq PO DAILY [facility] Last Admin: 08/28/24 09:26 Dose: 20 meq Potassium Chloride (Potassium Chloride Er 20 Meq Tablet) 20 meq PO ONCE ONE Stop: 08/27/24 13:14 Last Admin: 08/27/24 13:55 Dose: 20 meq Potassium Chloride (Potassium Chloride Er 20 Meq Tablet) 40 meq PO ONCE ONE Stop: 08/28/24 13:41 Last Admin: 08/28/24 14:07 Dose: 40 meq Ropivacaine (Ropivacaine 0.5% Sdv 30 Ml) Confirm Administered Dose 150 mg .ROUTE .STK-MED ONE Stop: 08/26/24 09:33 Last Admin: 08/26/24 11:15 Dose: Not Given Sacubitril/Valsartan (Sacubitril/Valsartan 24-26 Mg Tablet) 1 each PO BID [facility] Last Admin: 08/28/24 17:35 Dose: 1 each Allergies No Known Allergies Allergy (Verified 08/23/24 11:26) Home Medications aspirin 81 mg tablet,delayed release 81 mg PO DAILY #30 tabs 06/17/24 [Rx Confirmed 08/23/24] sodium hypochlorite 0.125 % solution (Dakin's Solution) 1 applic topical DAILY #473 mL 07/09/24 [Rx Confirmed 08/23/24] carvedilol 6.25 mg tablet 6.25 mg PO BID #60 tabs 08/14/24 [Rx Confirmed 08/23/24] dapagliflozin propanediol 10 mg tablet (Farxiga) 10 mg PO DAILY #30 tabs 08/14/24 [Rx Confirmed 08/23/24] furosemide 40 mg tablet 40 mg PO DAILY@0800 #30 tabs 08/14/24 [Rx Confirmed 08/23/24] sacubitril 24 mg-valsartan 26 mg tablet (Entresto) 1 tab PO BID #30 tabs 08/14/24 [Rx Confirmed 08/23/24] Discharge Plan Discharge Patient Disposition: Xfer LTC Condition: Stable Prescriptions: New spironolactone 25 mg Tablet 25 mg PO DAILY Qty: 30 0RF Continued dapagliflozin propanediol [Farxiga] 10 mg tablet 10 mg PO DAILY Qty: 30 1RF furosemide 40 mg tablet 40 mg PO DAILY@0800 Qty: 30 1RF Entresto 24-26 mg tablet 1 tab PO BID Qty: 30 1RF Dakin's Solution 0.125 % solution 1 applic topical DAILY Qty: 473 0RF aspirin 81 mg Tablet,Delayed Release (Dr/Ec) 81 mg PO DAILY Qty: 30 0RF Changed carvedilol 6.25 mg tablet 3.125 mg PO BID Qty: 60 2RF Discharge Orders: Discharge Order (Routine); Ordered 08/29/24 Ordered By: Margo Hernandez Referrals: [facility] [Outside] Itz Pierson MD [Primary Care Provider] - 09/20/24 9:30 am Discharge Diet: Cardiac Discharge Activity: Limit activity as instructed and As per PT/OT instructions Patient Instructions: Acute Wound Care (DC), Opioid Safety, Post Anesthesia Care Transfer Attestations Time Spent in Transfer Care: greater than 30 min Status at Transfer: Cognitive status at transfer: cognitively intact ; Behavioral status at transfer: cooperative ; Quality Metrics Clinical Quality Measures [ No reported AMI, CVA or VTE this stay] Coding Level of Care Code 88104 Total time (in minutes) for Discharge: 50 Diagnoses Acute on chronic systolic congestive heart failure I50.23 Heart failure chronicity: acute on chronic Heart failure type: systolic Nonischemic congestive cardiomyopathy I42.0 Primary hypertension I10 Hypertension type: primary hypertension Bilateral cellulitis of lower leg L03.116; L03.115 Presence of permanent cardiac pacemaker Z95.0
[2024-08-29 12:00] VITALS: BP 123/87; PULSE 99; RESP 20; TEMP 36.5; O2SAT 97
--- NOTE | 2024-08-29 14:00 | PC.NURSE ---
Returned patient's money $ 40 paez from the [employer]. HSAudrey was present when paez was returned.
[2024-08-29 14:02] VITALS: BP 144/75; PULSE 88; RESP 14; TEMP 36.1; O2SAT 95
== END 2024-08-29 13:45 | DRG 622 ==
LOC: ER 13:11 → MEDSURG 18:34 → ICU 08-24 16:19 → CSU 08-28 16:53
PROVIDERS: Family Medicine; Hospitalist; Podiatrist Foot & Ankle Surgery; Admitting Provider Student in an Organized Health Care Education/Training Program; Emergency Provider Family Medicine; PCP Family Medicine; Visit Provider Internal Medicine
PROC: 0JBP0ZZ Excision of Left Lower Leg Subcutaneous Tissue and Fascia, Open Approach (ICD-10-PCS; principal; 2024-08-26 09:55)
PROC: 0JBP0ZZ Excision of Left Lower Leg Subcutaneous Tissue and Fascia, Open Approach (ICD-10-PCS; 2024-08-26 09:55)
DX: E11.69 Type 2 diabetes mellitus with other specified complication (principal); I50.23 Acute on chronic systolic (congestive) heart failure; I13.0 Hypertensive heart and chronic kidney disease with heart failure and stage 1 through stage 4 chronic kidney disease, or unspecified chronic kidney disease; M86.9 Osteomyelitis, unspecified; L97.919 Non-pressure chronic ulcer of unspecified part of right lower leg with unspecified severity; L02.612 Cutaneous abscess of left foot; L03.116 Cellulitis of left lower limb; L03.115 Cellulitis of right lower limb; I44.2 Atrioventricular block, complete; E87.29 Other acidosis; L97.922 Non-pressure chronic ulcer of unspecified part of left lower leg with fat layer exposed; E11.51 Type 2 diabetes mellitus with diabetic peripheral angiopathy without gangrene; E11.22 Type 2 diabetes mellitus with diabetic chronic kidney disease; N18.31 Chronic kidney disease, stage 3a; Z79.84 Long term (current) use of oral hypoglycemic drugs; I83.009 Varicose veins of unspecified lower extremity with ulcer of unspecified site; L97.522 Non-pressure chronic ulcer of other part of left foot with fat layer exposed; M06.09 Rheumatoid arthritis without rheumatoid factor, multiple sites; H57.89 Other specified disorders of eye and adnexa; E87.6 Hypokalemia; Z95.0 Presence of cardiac pacemaker; Z89.422 Acquired absence of other left toe(s); Z79.82 Long term (current) use of aspirin
CPT/HCPCS: 36415; 36416; 36573; 36592; 36600; 51702; 51798; 71045; 73700; 80048; 80051; 80053; 80202; 81001; 82330; 82803; 82805; 82962; 83036; 83605; 83735; 83880; 84100; 85025; 87040; 87070; 87075; 87077; 87186; 87205; 88305; 88311; 93005; 93970; 94660; 96365; 96366; 96367; 96372; 96374; 96375; 96376; 99285; J1610; J1644; J1815; J1938; J1940; J2185; J2270; J2354; J2405; J2543; J3370; J3372; J3475; J3490; J7050; J7799; J9999

== ENCOUNTER → 2024-10-01 11:57 | Day surgery (SDC) | payer MEDICARE, SELFPAY ==
--- NOTE | 2024-10-01 12:11 | XR_ITS ---
WS: [id number] PORTABLE CHEST HISTORY: Post PICC insertion COMPARISON: 08/26/2024 Satisfactory placement right-sided PICC line with tip terminating near the caval atrial junction. Elevated RIGHT hemidiaphragm. Mild congestion. No pleural effusion or pneumothorax. Cardiac size: Moderately enlarged cardiac silhouette. Mediastinum/Aorta: Mildly widened mediastinum due to position of the patient. Advanced degenerative changes at the shoulder joints. LEFT subclavian cardiac pacer. XR/XR chest 1V portable [id number] IMPRESSION: Satisfactory placement right-sided PICC line.
--- NOTE | 2024-10-01 12:45 | PICC.NOTE ---
Single lumen PICC placed to right basilic vein. Referred to vascular access nurse for PICC placement due to osteomyelitis and need for IV vanc. Risks and benefits discussed and informed consent obtained from pt. Right arm assessed with right basilic vein measuring 4.1 mm, straight, and apparent best choice for placement. Using sterile technique and MST, right basilic vein accessed x 1 stick. Mid-arm circumference measured 10 cm from right AC 26 cm. Trimmed cath 41 cm with 0 cm external length noted. CXR shows tip in distal SVC near cavoatrial junction, in good position for use per radiologist. Line secured with stat-lock. Insertion site covered with Biopatch and TSM. Report and education included in PICC packet and sent with pt to [facility].
== END ==
PROVIDERS: PCP Family Medicine; Visit Provider Internal Medicine
DX: M86.672 Other chronic osteomyelitis, left ankle and foot (principal)
CPT/HCPCS: 36573; 71045

== ENCOUNTER 2024-10-02 12:27 | Inpatient (IN) | payer MEDICARE, SELFPAY ==
[2024-10-02] VITALS (7 sets, daily range): BP systolic 142–156; BP diastolic 96–114; PULSE 72–81; RESP 13–27; TEMP 36.8; O2SAT 92–96
--- NOTE | 2024-10-02 12:37 | XRR_ITS ---
PROCEDURE INFORMATION: Exam: XR Chest Exam date and time: 10/02/2024 12:40 PM Age: 64 years old Clinical indication: Cough; Additional info: Edema TECHNIQUE: Imaging protocol: Radiologic exam of the chest. Views: 1 view. COMPARISON: CR XR chest 1V portable [id number] 10/01/2024 12:37 PM FINDINGS: Tubes, catheters and devices: Right PICC line terminates near the atriocaval junction. Multi lead pacemaker/defibrillator. Lungs: Unremarkable. No consolidation. Pleural spaces: Unremarkable. No pleural effusion. No pneumothorax. Heart/Mediastinum: See Vasculature finding. Vasculature: Mild cardiomegaly and uncoiling of the thoracic aorta. Bones/joints: Unremarkable. XR/XR chest 1V portable [id number] IMPRESSION: No acute findings.
--- NOTE | 2024-10-02 12:39 | W.ED.GENADLT ---
Documented by User: Patrick Leong MD 10/02/24 14:28 HPI - General Adult General: Chief complaint: General Medical Stated complaint: Abd Distention Time Seen by Provider: 10/02/24 12:32 History of Present Illness: Chief complaint is edema. The patient states that he was in the hospital for months. He states it is all because of his legs. He has chronic infection in his legs. He states that he is been in a new rehab facility for the last week. He states that he has chronic swelling in his abdomen and his legs. The swelling in his abdomen is gradually gotten worse and his generalized edema and so they sent him here. Related Data Home Medications ?Medication ?Instructions ?Recorded ?Confirmed acetaminophen 325 mg capsule 650 mg PO QID PRN 10/01/24 10/01/24 bumetanide 0.5 mg tablet 0.5 mg PO DAILY 10/01/24 10/01/24 empagliflozin 10 mg tablet 10 mg PO DAILY 10/01/24 10/01/24 (Jardiance) magnesium hydroxide 400 mg/5 mL 30 ml PO Q72H PRN 10/01/24 10/01/24 oral suspension (Milk of Magnesia) meropenem 1 gram intravenous 1 g IV Q8H 10/01/24 10/01/24 solution metoprolol succinate 50 mg 50 mg PO DAILY 10/01/24 10/01/24 tablet,extended release 24 hr fbypcjgykqpv-btffjkxb-kapd tab PO 10/01/24 10/01/24 fumarate 19 mg-folic acid 400 mcg tablet (Thera-M) omeprazole 20 mg capsule,delayed 20 mg PO DAILY 10/01/24 10/01/24 release vancomycin 1 gram/200 mL in 1 g IV Q24H 10/01/24 10/01/24 diluent combination IV piggyback Previous Rx's ?Medication ?Instructions ?Recorded aspirin 81 mg tablet,delayed 81 mg PO DAILY #30 tabs 06/17/24 release sacubitril 24 mg-valsartan 26 mg 1 tab PO BID #30 tabs 08/14/24 tablet (Entresto) spironolactone 25 mg tablet 25 mg PO DAILY #30 tabs 08/29/24 Allergies Allergy/AdvReac Type Severity Reaction Status Date / Time No Known Allergies Allergy Verified 10/01/24 15:54 PFSH ED PFSH: Medical History Chronic kidney disease Gout Type 2 diabetes mellitus Cardiogenic shock 06/2024 Hypertension Chronic wound of extremity HFrEF (heart failure with reduced ejection fraction) Hypertensive urgency Lower extremity edema Third degree heart block Status post pacemaker placement, 2024 [facility] Congestive heart failure Seropositive rheumatoid arthritis of multiple sites Surgical History H/O umbilical hernia repair (~11/2022) History of cardiac catheterization 03/06/2024 nonischemic cardiomyopathy [facility] - LM normal; LAD luminal irregularities; LCx, OM1, OM2, RCA, PDA normal S/P placement of cardiac pacemaker (04/29/24) kalyani chamber, placed at [facility], due to 3rd degree heart block Status post debridement 06/2024 Dr Cervantes RLE wounds x several 04/2024 BLE at [facility], left 2nd toe ray amputation History of hernia repair Family History Mother Cancer breast Father Cancer non hodgkins lymphoma Other CAD (coronary artery disease) Diabetes Family history of premature coronary artery disease Denies family history of Rheumatoid arthritis Lupus Hyperlipidemia Chronic kidney disease (CKD) Lung disease Hypertension Stroke Social History Smoking and tobacco/nicotine status: never used tobacco/nicotine Alcohol intake: never Substance/Drug Use: never Lives independently: Yes Marital status: Single Number of children: 1 Current occupational status: retired Special jennifer needs: No Agree to transfusion: Yes Physical Exam Narrative: EXAM NARRATIVE: Patient sitting up alert in no acute distress but anxious. He is breathing comfortably. Pulse ox 95% on room air. Normal conjunctiva. No icterus. Neck is supple. Heart regular rhythm. Lung sounds are clear. No tachypnea or accessory muscle use or retractions. Abdomen is distended with fluid wave but no tenderness. No guarding or rebound. He has moist mucous membranes. Grossly normal external ENT exam. Extremities are wrapped in his wraps from wound care. He has a weeping wound where he has had a amputation on his left foot of his second toe. There is no erythema in exposed areas. He has brisk cap refill in his toes. He has edema in both legs. His speech is clear. He is alert and oriented. He shows ability to reason. Appropriate affect. Course Vital Signs: Vital signs: Vital Signs Temperature 98.2 F 10/02/24 12:28 Pulse Rate 77 10/02/24 12:35 Respiratory Rate 26 H 10/02/24 12:35 Blood Pressure 142/96 10/02/24 12:35 Pulse Oximetry 93 10/02/24 12:35 Oxygen Delivery Me thod Room Air 10/02/24 12:35 MDM - General Adult Medical Decision Making EMS reports that they were called and told that the patient's oxygen level was low and he had worsening edema and to bring him to the hosp. [place]. According to report the provider at the care facility wanted to diurese the patient but wanted to be done in a monitored setting. The patient states he does not want to be here. He states that he has been in the hospital so much and he does not think anything new is going on. He states he has had this chronic edema and it does get worse at times and it has been worse recently. He states he does get some shortness of breath when he lays flat but nothing that he has not had before when he builds up fluid. He does not want his wraps taken off because he states they just got put on by wound care. I do not see signs of cellulitis in the exposed areas. Patient has signs of perfusion distally. Patient states that he just had a PICC line placed to get antibiotics for his legs. He denies having any chest pain or chest discomfort to suggest cardiac ischemia. Patient states he has had the same problem recurrently with the edema. He denies any history of liver problems. He has chronic kidney disease and congestive heart failure. He does not think he is on diuretic right now but does not know his medications. He does not know if he is anticoagulated. He denies history of PE or DVT. He states he has some mild shortness of breath but he states is the same thing he always gets when he gets the fluid buildup and it is because of the swelling fluid in his stomach pushing on his lungs. He has no abdominal tenderness or abdominal pain to suggest spontaneous bacterial peritonitis. Patient denies any fever or new pain. Patient is not in any respiratory distress here. Plan to check labs including CBC CMP EKG proBNP and assess his renal function. Differentials broad including CHF exacerbation, liver disease, worsening renal function, ascites, anasarca, treatment broad differential, including differential for CHF exacerbation. Patient certainly complicated with both renal disease and congestive heart failure and may need inpatient care to safely diurese. Patient apparently had some hypoxia at the care facility although now sitting up he seems to be doing better. Will obtain labs and assess for need for admission Lab Data 10/02/24 12:50 10/02/24 12:50 Radiology Impressions Chest X-Ray 10/02/24 12:37 IMPRESSION: No acute findings. Laboratory Results WBC 9.17 10^3/uL (3.29-11.43) 10/02/24 12:50 RBC 4.14 10^6/uL (3.85-5.65) 10/02/24 12:50 Hgb 10.80 g/dL (11.27-16.99) L 10/02/24 12:50 Hct 35.2 % (37-53) L 10/02/24 12:50 MCV 85.0 fl (82-101) 10/02/24 12:50 MCH 26.1 pg (27-33) L 10/02/24 12:50 MCHC 30.7 g/dL (30-55) 10/02/24 12:50 RDW 16.3 % (12.1-15.1) H 10/02/24 12:50 Plt Count 302 10^3/cmm (157-399) 10/02/24 12:50 MPV 10.3 fL (7.4-10.4) 10/02/24 12:50 Neut % (Auto) 67.4 % 10/02/24 12:50 Lymph % (Auto) 13.3 % 10/02/24 12:50 [place] % (Auto) 12.9 % 10/02/24 12:50 Eos % (Auto) 4.6 % 10/02/24 12:50 Baso % (Auto) 1.4 % 10/02/24 12:50 Neut # (Auto) 6.18 10^3/uL (1.8-7.7) 10/02/24 12:50 Lymph # (Auto) 1.2 10^3/uL (0.8-4.8) 10/02/24 12:50 [place] # (Auto) 1.2 10^3/uL (0.2-0.9) H 10/02/24 12:50 Eos # (Auto) 0.4 10^3/uL (0.0-0.8) 10/02/24 12:50 Baso # (Auto) 0.1 10^3/uL (0.0-0.1) 10/02/24 12:50 Nucleated RBC % (auto) 0 % 10/02/24 12:50 Nucleated RBCs # 0.0 /100WBC 10/02/24 12:50 Sodium 140 mmol/L (136-145) 10/02/24 12:50 Potassium 4.1 mmol/L (3.5-5.1) 10/02/24 12:50 Chloride 104 mmol/L (98-107) 10/02/24 12:50 Carbon Dioxide 21 mmol/L (22-29) L 10/02/24 12:50 Anion Gap 19.1 (5-19) H 10/02/24 12:50 BUN 30 mg/dL (8-23) H 10/02/24 12:50 Creatinine 1.5 mg/dL (0.7-1.2) H 10/02/24 12:50 GFR Calculation 47.0 mL/min (90-130) L 10/02/24 12:50 Glucose 100 mg/dL (65-115) 10/02/24 12:50 Calculated Osmolality 296 mOsm/kg (285-295) H 10/02/24 12:50 Calcium 9.1 mg/dL (8.5-10.5) 10/02/24 12:50 Total Bilirubin 1.4 mg/dL (0.15-1.2) H 10/02/24 12:50 AST 17 U/L (0-40) 10/02/24 12:50 ALT 13 U/L (0-41) 10/02/24 12:50 Alkaline Phosphatase 166 U/L (40-130) H 10/02/24 12:50 NT-Pro-B Natriuret Pep 7839 pg/mL (0-125) H 10/02/24 12:50 Total Protein 6.7 g/dL (6.6-8.7) 10/02/24 12:50 Albumin 3.6 g/dL (3.5-5.2) 10/02/24 12:50 Globulin 3.1 g/dL (1.3-4.6) 10/02/24 12:50 Lipase 20 U/L (13-60) 10/02/24 12:50 All radiology interpretation(s) finalized by discharge EKG Data EKG 1: Computer generated interpretation: Chest X-Ray 10/02/24 12:37 IMPRESSION: No acute findings. Discharge Plan Discharge Patient Disposition: Admitted As Inpatient Clinical Impression: Anasarca, HFrEF (heart failure with reduced ejection fraction), Orthopnea, SAMANTHA (acute kidney injury), S/P placement of cardiac pacemaker Condition: Stable Coding Level of Care Code ED Caustic Pump Operator for Chg Fwd Documented by User: Bjorn Doan MD 10/02/24 14:41 HPI - General Adult General: Chief complaint: General Medical Stated complaint: Abd Distention Time Seen by Provider: 10/02/24 12:32 History of Present Illness: Chief complaint is edema. The patient states that he was in the hospital for months. He states it is all because of his legs. He has chronic infection in his legs. He states that he is been in a new rehab facility for the last week. He states that he has chronic swelling in his abdomen and his legs. The swelling in his abdomen is gradually gotten worse and his generalized edema and so they sent him here. dry weight is 200, now 222 lbs at [facility]. Related Data Home Medications ?Medication ?Instructions ?Recorded ?Confirmed acetaminophen 325 mg capsule 650 mg PO QID PRN 10/01/24 10/01/24 bumetanide 0.5 mg tablet 0.5 mg PO DAILY 10/01/24 10/01/24 empagliflozin 10 mg tablet 10 mg PO DAILY 10/01/24 10/01/24 (Jardiance) magnesium hydroxide 400 mg/5 mL 30 ml PO Q72H PRN 10/01/24 10/01/24 oral suspension (Milk of Magnesia) meropenem 1 gram intravenous 1 g IV Q8H 10/01/24 10/01/24 solution metoprolol succinate 50 mg 50 mg PO DAILY 10/01/24 10/01/24 tablet,extended release 24 hr wntabjumnube-ufkbuwtx-ycqs tab PO 10/01/24 10/01/24 fumarate 19 mg-folic acid 400 mcg tablet (Thera-M) omeprazole 20 mg capsule,delayed 20 mg PO DAILY 10/01/24 10/01/24 release vancomycin 1 gram/200 mL in 1 g IV Q24H 10/01/24 10/01/24 diluent combination IV piggyback Previous Rx's ?Medication ?Instructions ?Recorded aspirin 81 mg tablet,delayed 81 mg PO DAILY #30 tabs 06/17/24 release sacubitril 24 mg-valsartan 26 mg 1 tab PO BID #30 tabs 08/14/24 tablet (Entresto) spironolactone 25 mg tablet 25 mg PO DAILY #30 tabs 08/29/24 Allergies Allergy/AdvReac Type Severity Reaction Status Date / Time No Known Allergies Allergy Verified 10/01/24 15:54 Review of Systems General: Reports: 10 or more systems reviewed and unremarkable except in HPI and below Narrative: + worsening swelling moving from legs to abdomen, + orhtopnea PFSH ED PFSH: Medical History Chronic kidney disease Gout Type 2 diabetes mellitus Cardiogenic shock 06/2024 Hypertension Chronic wound of extremity HFrEF (heart failure with reduced ejection fraction) Hypertensive urgency Lower extremity edema Third degree heart block Status post pacemaker placement, 2024 [facility] Congestive heart failure Seropositive rheumatoid arthritis of multiple sites Surgical History H/O umbilical hernia repair (~11/2022) History of cardiac catheterization 03/06/2024 nonischemic cardiomyopathy [facility] - LM normal; LAD luminal irregularities; LCx, OM1, OM2, RCA, PDA normal S/P placement of cardiac pacemaker (04/29/24) kalyani chamber, placed at [facility], due to 3rd degree heart block Status post debridement 06/2024 Dr Cervantes RLE wounds x several 04/2024 BLE at [facility], left 2nd toe ray amputation History of hernia repair Family History Mother Cancer breast Father Cancer non hodgkins lymphoma Other CAD (coronary artery disease) Diabetes Family history of premature coronary artery disease Denies family history of Rheumatoid arthritis Lupus Hyperlipidemia Chronic kidney disease (CKD) Lung disease Hypertension Stroke Social History Smoking and tobacco/nicotine status: never used tobacco/nicotine Alcohol intake: never Substance/Drug Use: never Lives independently: Yes Marital status: Single Number of children: 1 Current occupational status: retired Special jennifer needs: No Agree to transfusion: Yes Physical Exam Narrative: EXAM NARRATIVE: Patient sitting up alert in no acute distress but anxious. He is breathing comfortably. Pulse ox 95% on room air. Normal conjunctiva. No icterus. Neck is supple. +JVD in upright position. Heart regular rhythm. Lung sounds are clear. No tachypnea or accessory muscle use or retractions. Abdomen is distended with edema but no tenderness. No guarding or rebound. He has moist mucous membranes. Grossly normal external ENT exam. Extremities are wrapped in his wraps from wound care. He has a weeping wound where he has had a amputation on his left foot of his second toe. There is no erythema in exposed areas. He has brisk cap refill in his toes. He has edema in both legs. His speech is clear. He is alert and oriented. He shows ability to reason. Appropriate affect. Course Vital Signs: Vital signs: Vital Signs Temperature 98.2 F 10/02/24 12:28 Pulse Rate 77 10/02/24 12:35 Respiratory Rate 26 H 10/02/24 12:35 Blood Pressure 142/96 10/02/24 12:35 Pulse Oximetry 93 10/02/24 12:35 Oxygen Delivery Me thod Room Air 10/02/24 12:35 MDM - General Adult Medical Decision Making EMS reports that they were called and told that the patient's oxygen level was low and he had worsening edema and to bring him to the hosp. According to report the provider at the care facility wanted to diurese the patient but wanted to be done in a monitored setting. Dry weight reportedly 200, now 222. He does not want his wraps taken off because he states they just got put on by wound care. I do not see signs of cellulitis in the exposed areas. Patient has signs of perfusion distally. Patient states that he just had a PICC line placed to get antibiotics for his legs. He denies having any chest pain or chest discomfort to suggest cardiac ischemia. Plan to check labs including CBC CMP EKG proBNP and assess his renal function. Differentials broad including CHF exacerbation, liver disease, worsening renal function, ascites, anasarca, treatment broad differential, including differential for CHF exacerbation. Patient certainly complicated with both renal disease and congestive heart failure and may need inpatient care to safely diurese. Patient apparently had some hypoxia at the care facility although now sitting up he seems to be doing better. Will obtain labs and assess for need for admission Update Chest x-ray shows cardiomegaly without any obvious pulmonary edema or pleural effusions. Patient's BUN is 30, creatinine is 1.5. GFR 47. He does have a low bicarb and an elevated anion gap but it does not appear to be glycemic in nature. Other metabolic acidosis considered. BNP is elevated to over 7000, almost 8000. Patient has JVD in upright position. Last creatinine was 0.8. After discussing possible treatment plan, we decided to administer Bumex 1 mg IV and to admit to the hospital for monitor diuresis given the SAMANTHA and symptomatology. Discussed with Dr. Kaur for admission. Medical Records I reviewed the patient's medical records. Lab Data 10/02/24 12:50 10/02/24 12:50 Radiology Impressions Chest X-Ray 10/02/24 12:37 IMPRESSION: No acute findings. Laboratory Results WBC 9.17 10^3/uL (3.29-11.43) 10/02/24 12:50 RBC 4.14 10^6/uL (3.85-5.65) 10/02/24 12:50 Hgb 10.80 g/dL (11.27-16.99) L 10/02/24 12:50 Hct 35.2 % (37-53) L 10/02/24 12:50 MCV 85.0 fl (82-101) 10/02/24 12:50 MCH 26.1 pg (27-33) L 10/02/24 12:50 MCHC 30.7 g/dL (30-55) 10/02/24 12:50 RDW 16.3 % (12.1-15.1) H 10/02/24 12:50 Plt Count 302 10^3/cmm (157-399) 10/02/24 12:50 MPV 10.3 fL (7.4-10.4) 10/02/24 12:50 Neut % (Auto) 67.4 % 10/02/24 12:50 Lymph % (Auto) 13.3 % 10/02/24 12:50 [place] % (Auto) 12.9 % 10/02/24 12:50 Eos % (Auto) 4.6 % 10/02/24 12:50 Baso % (Auto) 1.4 % 10/02/24 12:50 Neut # (Auto) 6.18 10^3/uL (1.8-7.7) 10/02/24 12:50 Lymph # (Auto) 1.2 10^3/uL (0.8-4.8) 10/02/24 12:50 [place] # (Auto) 1.2 10^3/uL (0.2-0.9) H 10/02/24 12:50 Eos # (Auto) 0.4 10^3/uL (0.0-0.8) 10/02/24 12:50 Baso # (Auto) 0.1 10^3/uL (0.0-0.1) 10/02/24 12:50 Nucleated RBC % (auto) 0 % 10/02/24 12:50 Nucleated RBCs # 0.0 /100WBC 10/02/24 12:50 Sodium 140 mmol/L (136-145) 10/02/24 12:50 Potassium 4.1 mmol/L (3.5-5.1) 10/02/24 12:50 Chloride 104 mmol/L (98-107) 10/02/24 12:50 Carbon Dioxide 21 mmol/L (22-29) L 10/02/24 12:50 Anion Gap 19.1 (5-19) H 10/02/24 12:50 BUN 30 mg/dL (8-23) H 10/02/24 12:50 Creatinine 1.5 mg/dL (0.7-1.2) H 10/02/24 12:50 GFR Calculation 47.0 mL/min (90-130) L 10/02/24 12:50 Glucose 100 mg/dL (65-115) 10/02/24 12:50 Calculated Osmolality 296 mOsm/kg (285-295) H 10/02/24 12:50 Calcium 9.1 mg/dL (8.5-10.5) 10/02/24 12:50 Total Bilirubin 1.4 mg/dL (0.15-1.2) H 10/02/24 12:50 AST 17 U/L (0-40) 10/02/24 12:50 ALT 13 U/L (0-41) 10/02/24 12:50 Alkaline Phosphatase 166 U/L (40-130) H 10/02/24 12:50 NT-Pro-B Natriuret Pep 7839 pg/mL (0-125) H 10/02/24 12:50 Total Protein 6.7 g/dL (6.6-8.7) 10/02/24 12:50 Albumin 3.6 g/dL (3.5-5.2) 10/02/24 12:50 Globulin 3.1 g/dL (1.3-4.6) 10/02/24 12:50 Lipase 20 U/L (13-60) 10/02/24 12:50 EKG Data EKG 1: Interpretation: EKG was obtained at 1303. Sinus rhythm, rate 76, QRS is at 103 ms, QTc borderline prolonged, some nonspecific ST and T wave changes. Computer generated interpretation: Chest X-Ray 10/02/24 12:37 IMPRESSION: No acute findings. Discharge Plan Discharge Patient Disposition: Admitted As Inpatient Clinical Impression: Anasarca, HFrEF (heart failure with reduced ejection fraction), Orthopnea, SAMANTHA (acute kidney injury), S/P placement of cardiac pacemaker Condition: Stable Coding Level of Care Code ED Caustic Pump Operator for Hannah Redman
[2024-10-02 12:59] LABS: Basophils # 0.1 10^3/uL (0.0-0.1); Basophils % 1.4 %; Eosinophils # 0.4 10^3/uL (0.0-0.8); Eosinophils % 4.6 %; Hematocrit 35.2 % (37-53); Lymphocytes # 1.2 10^3/uL (0.8-4.8); Lymphocytes % 13.3 %; Mean Corpuscular HGB Conc 30.7 g/dL (30-55); Mean Corpuscular Hemoglobin 26.1 pg (27-33); Mean Platelet Volume 10.3 fL (7.4-10.4); Monocytes # 1.2 10^3/uL (0.2-0.9); Monocytes % 12.9 %; Neutrophils # 6.18 10^3/uL (1.8-7.7); Neutrophils % 67.4 %; Nucleated Red Blood Cells % 0 %; Platelet Count 302 10^3/cmm (157-399); Red Blood Count 4.14 10^6/uL (3.85-5.65); Red Cell Distribution Width 16.3 % (12.1-15.1); White Blood Count 9.17 10^3/uL (3.29-11.43)
--- NOTE | 2024-10-02 13:03 | ECG_ITS ---
[id number] Test Date: 2024-10-02 Pat Name: Ely Hare Department: Room: Gender: Male Virology Teacher: : 1960 Requested By: Patrick Leong Order Number: [id number] Reading MD: MARCEL PRIETO Measurements Intervals Ariel Rate: 76 P: 48 DE: 203 QRS: 19 QRSD: 103 T: 81 QT: 437 QTc: 494 Interpretive Statements SINUS RHYTHM NONSPECIFIC T-WAVE ABNORMALITY PROLONGED QT INTERVAL Compared to ECG 08/27/2024 16:56:38 T-wave abnormality now present Prolonged QT interval now present Electronically Signed On 10-09-2024 22:47:16 CDT by MARCEL PRIETO [email or web address]
[2024-10-02 13:28] LABS: Alanine Aminotransferase 13 U/L (0-41); Albumin Level 3.6 g/dL (3.5-5.2); Alkaline Phosphatase 166 U/L (40-130); Aspartate Amino Transferase 17 U/L (0-40); Blood Urea Nitrogen 30 mg/dL (8-23); Calcium 9.1 mg/dL (8.5-10.5); Carbon Dioxide 21 mmol/L (22-29); Chloride 104 mmol/L (98-107); Creatinine Clr Calc Pharmacy 54.6578; Globulin 3.1 g/dL (1.3-4.6); Glucose 100 mg/dL (65-115); Lipase 20 U/L (13-60); NT Pro B Type Natriuretic Pept 7839 pg/mL (0-125); Osmolality Calculated 296 mOsm/kg (285-295); Sodium 140 mmol/L (136-145); Total Bilirubin 1.4 mg/dL (0.15-1.2); Total Protein 6.7 g/dL (6.6-8.7)
[2024-10-02 13:31] LABS: Anion Gap 19.1 (5-19); Potassium 4.1 mmol/L (3.5-5.1)
[2024-10-02] MEDS: bumetanide 0.25 mg/mL SDV 4 mL 1 MG IVP ×2 (14:32→21:16)
--- NOTE | 2024-10-02 14:53 | PC.NURSE ---
Bumex ordered for patient. Pt agitated and states that he has been stuck in the hospital for 6months and he is sick and tired of all this. Pt states, what do you expect me to do ( holding urinal) If I have to pee in this thing, I will pee all over the place. Pt offered to have bedside and he then states I can't just jump off this table every 5 seconds. Pt states he has had catheters in the past and that is the fastest way. Informed Dr Doan of pt statements. Verbal order for shipley cath. Cath placed with Annabel WEAVER. Noted prior to insertion - pt has swelling to the penis- pt reports this has been there for months. Denies that anyone has addressed it because i have too many problems, they just don't care.
--- NOTE | 2024-10-02 15:31 | USR_ITS ---
PROCEDURE INFORMATION: Exam: US Duplex Lower Extremity Veins, Bilateral Exam date and time: 10/02/2024 4:52 PM Age: 64 years old Clinical indication: Swelling (edema) of limb; Lower extremity, bilateral TECHNIQUE: Imaging protocol: Real-time duplex ultrasound of the bilateral extremities with 2-D castellon scale, color Doppler flow and spectral waveform analysis including responses to compression and other maneuvers (when performed) with image documentation. Complete exam focused on the lower extremity veins. COMPARISON: US CV venous duplex [facility] [id number] 08/23/2024 12:54 PM FINDINGS: Right deep veins: Unremarkable. The common femoral, femoral, proximal profunda femoral and popliteal veins are patent without thrombus. Normal Doppler waveforms. Normal compressibility and/or augmentation response. Left deep veins: Unremarkable. The common femoral, femoral, proximal profunda femoral and popliteal veins are patent without thrombus. Normal Doppler waveforms. Normal compressibility and/or augmentation response. Superficial veins: Greater saphenous veins at the saphenofemoral junctions are patent bilaterally without thrombus. Soft tissues: Unremarkable. US/CV venous duplex [facility] [id number] IMPRESSION: No evidence of deep vein thrombosis.
--- NOTE | 2024-10-02 15:31 | USCV_ITS ---
Ely Hare Age: 64 Gender: M : 1960 Exam Date: 10/02/2024 20:35 Ordering Phys: Ashish Ortiz MD Technologist: MARCEL [place] [facility] [place]: chf HTN, HL RA, LAURA, hx ischemic CM, pacer 2024, SOB, BLE edema BP: 149 / 101 HR: 74 Rhythm: Sinus Technical Quality: Adequate MEASUREMENTS (Male / Female) Normal Values 2D ECHO LV Diastolic Diameter PLAX 5.1 cm 4.2 - 5.9 / 3.9 - 5.3 cm IVS Diastolic Thickness 1.5 cm 0.6 - 1.0 / 0.6 - 0.9 cm IVS Systolic Thickness 1.5 cm LVPW Diastolic Thickness 1.7 cm 0.6 - 1.0 / 0.6 - 0.9 cm LVPW Systolic Thickness 1.9 cm LVOT Diameter 2.2 cm LV Ejection Fraction 2D Teich 15.9 % LV Ejection Fraction MOD 4C 31.2 % LV Ejection Fraction MOD 2C 32.3 % LV Ejection Fraction 2C AL 32.9 % LA Diameter 4.6 cm Aorta at Sinotubular Diameter 3.7 cm IVC Diameter 2.6 cm M-MODE LA Ao Ratio MM 1.4 AV Cusp Separation MM 1.8 cm DOPPLER AV Peak Velocity 143.0 cm/s LVOT Peak Velocity 54.0 cm/s AV Area Cont Eq vti 1.3 cm squared AV Area Cont Eq pk 1.5 cm squared MV Peak Velocity 127.0 cm/s MV Area PHT 3.9 cm squared Mitral E to A Ratio 2.4 TV Peak Velocity 212.3 cm/s TR Peak Velocity 251.0 cm/s TR Peak Gradient 25.2 mmHg TV Peak E Velocity 78.0 cm/s PV Peak Velocity 51.0 cm/s FINDINGS Left Ventricle Left ventricle is normal in size. LV systolic function is severely reduced with EF of 15 to 20%. Severe global hypokinesis. Grade 3 diastolic dysfunction Right Ventricle Moderately hypokinetic. Pacemaker lead is seen Right Atrium Dilated. Pacemaker lead is seen Left Atrium Severely dilated Mitral Valve Mitral valve is thickened. Moderate mitral regurgitation. Aortic Valve Aortic valve is thickened. Mild to moderate aortic regurgitation. No significant stenosis Tricuspid Valve Mild tricuspid regurgitation. Pulmonary artery systolic pressure is normal. Pulmonic Valve Not well visualized Pericardium Pleural effusion seen Aorta Normal in size IVC Appears to be dilated CONCLUSIONS LV systolic function is severely reduced with EF 15 to 20%. Grade 3 diastolic dysfunction. RV is moderately hypokinetic. Biatrial enlargement. Moderate mitral regurgitation. Mild to moderate aortic regurgitation. Mild tricuspid regurgitation. Pleural effusion seen IVC appears to be dilated Compared to prior echocardiogram from 06/2024, no significant changes are seen Jose Antonio Head MD (Electronically Signed) Final Date: 04 Oct 2024 09:52 S
--- NOTE | 2024-10-02 15:32 | PM.HP ---
Providers/Chief Complaint Primary Care Provider: Itz Pierson MD Chief Complaint: Abd Distention History of Present Illness Ely Hare is a 64 year old male hypertension, hyperlipidemia, rheumatoid arthritis of, obstructive sleep apnea, cardiomyopathy with EF of 15%, history of bilateral lower extremity venous ulcer debridement, recent history of left foot second metatarsal amputation currently on IV vancomycin, meropenem, history of pacemaker placement, with plans in the near future for conversion to AICD, history of bilateral lower extremity wounds to mesh by wound care, who presents [facility] due to shortness of breath, lower extremity edema, orthopnea, paroxysmal nocturnal dyspnea. Patient tells me that he [facility] at [facility], he is currently at [facility], he has been experiencing increased shortness of breath, increased lower extremity edema, no fevers, chills, no cough no hemoptysis, has orthopnea, paroxysmal nocturnal dyspnea, has anasarca, increased abdominal distention Review of Systems Const: Denies: fever(s) or chills Card: Denies: chest pain Resp: Reports: dyspnea; Denies: non-productive cough GI: Denies: abdominal pain, nausea or vomiting Medications/Allergies Home Medications ?Medication ?Instructions ?Recorded ?Confirmed ?Last Taken ?Type aspirin 81 mg tablet,delayed 81 mg PO DAILY #30 tabs 06/17/24 10/01/24 06/23/24 Rx release sacubitril 24 mg-valsartan 26 mg 1 tab PO BID #30 tabs 08/14/24 10/01/24 Unknown Rx tablet (Entresto) spironolactone 25 mg tablet 25 mg PO DAILY #30 tabs 08/29/24 10/01/24 Unknown Rx acetaminophen 325 mg capsule 650 mg PO QID PRN 10/01/24 10/01/24 Unknown History bumetanide 0.5 mg tablet 0.5 mg PO DAILY 10/01/24 10/01/24 Unknown History empagliflozin 10 mg tablet 10 mg PO DAILY 10/01/24 10/01/24 Unknown History (Jardiance) magnesium hydroxide 400 mg/5 mL 30 ml PO Q72H PRN 10/01/24 10/01/24 Unknown History oral suspension (Milk of Magnesia) meropenem 1 gram intravenous 1 g IV Q8H 10/01/24 10/01/24 Unknown History solution metoprolol succinate 50 mg 50 mg PO DAILY 10/01/24 10/01/24 Unknown History tablet,extended release 24 hr [id number] tab PO 10/01/24 10/01/24 Unknown History fumarate 19 mg-folic acid 400 mcg tablet (Thera-M) omeprazole 20 mg capsule,delayed 20 mg PO DAILY 10/01/24 10/01/24 Unknown History release vancomycin 1 gram/200 mL in 1 g IV Q24H 10/01/24 10/01/24 Unknown History diluent combination IV piggyback Allergies Allergy/AdvReac Type Severity Reaction Status Date / Time No Known Allergies Allergy Verified 10/01/24 15:54 PFSH Acute PFSH: Medical History Chronic kidney disease Gout Type 2 diabetes mellitus Cardiogenic shock 06/2024 Hypertension Chronic wound of extremity HFrEF (heart failure with reduced ejection fraction) Hypertensive urgency Lower extremity edema Third degree heart block Status post pacemaker placement, 2024 [facility] Congestive heart failure Seropositive rheumatoid arthritis of multiple sites Surgical History H/O umbilical hernia repair (~11/2022) History of cardiac catheterization 03/06/2024 nonischemic cardiomyopathy [facility] - LM normal; LAD luminal irregularities; LCx, OM1, OM2, RCA, PDA normal S/P placement of cardiac pacemaker (04/29/24) kalyani chamber, placed at [facility], due to 3rd degree heart block Status post debridement 06/2024 Dr Cervantes RLE wounds x several 04/2024 BLE at [facility], left 2nd toe ray amputation History of hernia repair Family History Mother Cancer breast Father Cancer non hodgkins lymphoma Other CAD (coronary artery disease) Diabetes Family history of premature coronary artery disease Denies family history of Rheumatoid arthritis Lupus Hyperlipidemia Chronic kidney disease (CKD) Lung disease Hypertension Stroke Social History Smoking and tobacco/nicotine status: never used tobacco/nicotine Alcohol intake: never Substance/Drug Use: never Lives independently: Yes Marital status: Single Number of children: 1 Current occupational status: retired Special jennifer needs: No Agree to transfusion: Yes Vitals/I&O/Wt Last Vital Signs Temp 98.2 F 10/02/24 12:28 Pulse 78 10/02/24 14:35 Resp 18 10/02/24 14:35 BP 147/110 10/02/24 14:35 Pulse Ox 94 10/02/24 14:35 O2 Del Method Room Air 10/02/24 14:35 Weight last 48 hrs Weight 90.718 kg Physical Exam Const: COMMON NORMALS: no acute distress and patient oriented x3 HENMT: COMMON NORMALS: normocephalic Eye: COMMON NORMALS: Equal, round and reactive pupils present and EOMs intact bilaterally Resp: COMMON NORMALS: normal respiratory effort, No retractions, No use of accessory muscles and clear to auscultation bilaterally AUSCULTATION: crackles and wheezes Cardio: COMMON NORMALS: regular rate, regular rhythm, S1 normal heart sound present and S2 normal heart sound present RATE: regular rate RHYTHM: regular rhythm HEART SOUNDS: S1 normal heart sound present and S2 normal heart sound present GI: COMMON NORMALS: Soft to palpation INSPECTION: Yes Abdominal wall edema and Yes abdominal distension OTHER: Abdominal wall edema, abdominal distention, fluid wave present, but good bowel sounds Extremity: NARRATIVE EXTREMITY EXAM: 2+ pitting edema, anasarca Neuro: COMMON NORMALS: patient oriented x3, CN's II-XII intact bilaterally and moves all extremities Psych: COMMON NORMALS: mental status grossly normal Urinary Catheter Management: Marsh: Cath Placed During This Visit: yes Urinary Catheter Date of Insertion: 10/02/24 Urinary Catheter Time of Insertion: 14:53 Data 10/02/24 12:50 10/02/24 12:50 A&P Assessment and plan (1) HFrEF (heart failure with reduced ejection fraction): (2) Nonischemic congestive cardiomyopathy: (3) PICC (peripherally inserted central catheter) in place: (4) Type 2 diabetes mellitus: (5) SAMANTHA (acute kidney injury): (6) Osteomyelitis of foot: (7) Venous stasis ulcers of both lower extremities: (8) Ulcer of left foot with fat layer exposed: (9) Acute exacerbation of CHF (congestive heart failure): Plan Acute systolic CHF exacerbation - With abdominal wall edema, anasarca, 2+ pitting edema, BNP 7839 -History of systolic CHF EF 10 to 15% Plan - Fluid restrictions of 1000 cc - Bumex 1 mg IV every 12 hours - Marsh catheter in place - Monitor your, her creatinine - Repeat cardiac echo Bilateral lower extremity swelling, venous ultrasound History of bilateral lower extremity wounds - Consult wound care - History of debridement Left foot abscess, second metatarsal osteomyelitis - Continue vancomycin - Continue meropenem Type 2 diabetes mellitus, low-dose sliding scale Full code Lovenox for DVT prophylaxis PDMP PDMP Reviewed: Not Reviewed Attestations Medical Necessity Statement*: Patient requires hospitalization, inpatient, greater than 2 midnights, for acute CHF exacerbation fluid overload, anasarca, Diagnoses HFrEF (heart failure with reduced ejection fraction) I50.20 Nonischemic congestive cardiomyopathy I42.0 PICC (peripherally inserted central catheter) in place Z45.2 Type 2 diabetes mellitus with diabetic peripheral angiopathy without gangrene, without long-term current use of insulin E11.51 Diabetes mellitus complication detail: with peripheral angiopathy without gangrene Diabetes mellitus complication status: with circulatory complication Diabetes mellitus physician assistant certified insulin use: without physician assistant certified use SAMANTHA (acute kidney injury) N17.9 Subacute osteomyelitis of left foot M86.272 Osteomyelitis type: subacute Laterality: left Venous stasis ulcers of both lower extremities I83.019; I83.029; L97.919; L97.929 Ulcer of left foot with fat layer exposed L97.522 Acute on chronic systolic congestive heart failure I50.23 Heart failure type: systolic
[2024-10-02 16:33] LABS: Glucose Point of Care 112 mg/dL (70-110)
--- NOTE | 2024-10-02 16:35 | PHA.VACGOAL ---
Vancomycin Goal - Goal Vancomycin Goal:: 15-20 mg/L Vancomycin Indication:: Osteo - Therapy Day of therpy:: Day []of [] . Actual body weight (kg): 200 lb - Data Labs: WBC 9.17 10^3/uL (3.29-11.43) 10/02/24 12:50 RBC 4.14 10^6/uL (3.85-5.65) 10/02/24 12:50 Hgb 10.80 g/dL (11.27-16.99) L 10/02/24 12:50 Hct 35.2 % (37-53) L 10/02/24 12:50 MCV 85.0 fl (82-101) 10/02/24 12:50 MCH 26.1 pg (27-33) L 10/02/24 12:50 MCHC 30.7 g/dL (30-55) 10/02/24 12:50 RDW 16.3 % (12.1-15.1) H 10/02/24 12:50 Sodium 140 mmol/L (136-145) 10/02/24 12:50 Potassium 4.1 mmol/L (3.5-5.1) 10/02/24 12:50 Chloride 104 mmol/L (98-107) 10/02/24 12:50 Carbon Dioxide 21 mmol/L (22-29) L 10/02/24 12:50 Anion Gap 19.1 (5-19) H 10/02/24 12:50 BUN 30 mg/dL (8-23) H 10/02/24 12:50 Creatinine 1.5 mg/dL (0.7-1.2) H 10/02/24 12:50 GFR Calculation 47.0 mL/min (90-130) L 10/02/24 12:50 Treatment plan:: new consult Regimen:: 2000 MG NOW 1000 MG Q12H MAINTENANCE
[2024-10-02] MEDS: enoxaparin 40 mg/0.4 mL Syringe SUBCUT (16:41)
[2024-10-02] MEDS: meropenem 1,000 mg SDV 1000 MG IVP (16:42)
[2024-10-02] MEDS: sacubitril/valsartan 24-26 mg Tablet 1 EACH PO (16:42)
[2024-10-02] MEDS: pantoprazole 40 mg SDV IVP (16:42)
[2024-10-02] MEDS: metOLazone 5 MG Tablet PO (16:42)
[2024-10-02 17:10] LABS: Thyroid Stimulating Hormone 4.03 uIU/mL (0.27-4.20)
[2024-10-02] MEDS: vancomycin 2,000 MG/400 ML PIGGYBACK 200 MG IV (17:56)
--- NOTE | 2024-10-02 18:52 | PC.NURSE ---
Provider is updated that Mr Hare, he said that wound care has been seeing and taking care of his lower legs. Can you put in an order for wound care? No new orders at this time.
[2024-10-02] MEDS: trazodone 50 mg Tablet PO (21:16)
[2024-10-02 22:13] LABS: Bilirubin Urine Negative (Negative); Blood Urine 3+ (Negative); Glucose Urine UA Trace (Normal); Ketones Urine Negative (Negative); Leukocyte Esterase Urine 1+ (Negative); Nitrate Urine Negative (Negative); Protein Urine 1+ (Negative); Specific Gravity, Urine 1.009 (1.005-1.030); Urobilinogen Urine 0.2 mg/dL (Negative)
[2024-10-02 22:18] LABS: Add Urine Microscopic? YES; Bacteria Urine None Seen /hpf; Hyaline Casts Urine 2.05 /lpf; RBC Urine >100 /hpf (0-2); Squamous Epithelial Cell Urine 0-5 /hpf (0-5); WBC Urine 21-50 /hpf (0-5)
[2024-10-02 22:33] LABS: Add Urine Culture? Yes
[2024-10-02 22:38] LABS: Urine Appearance Slightly Cloudy (CLEAR); Urine Color Yellow (Yellow)
[2024-10-03] VITALS (9 sets, daily range): BP systolic 92–147; BP diastolic 53–95; PULSE 62–94; RESP 13–24; TEMP 36.4–37.2; O2SAT 94–97
[2024-10-03] MEDS: meropenem 1,000 mg SDV 1000 MG IVP ×3 (00:05→17:34)
[2024-10-03] MEDS: VANCOMYCIN ADD-Vantage 1,000 MG in 0.9% NaCl ADD-Vantage 250 ML 250 MG IV ×2 (04:04→17:35)
[2024-10-03 04:41] LABS: Basophils # 0.1 10^3/uL (0.0-0.1); Basophils % 1.2 %; Eosinophils # 0.7 10^3/uL (0.0-0.8); Eosinophils % 6.1 %; Hematocrit 35.5 % (37-53); Lymphocytes # 1.2 10^3/uL (0.8-4.8); Lymphocytes % 11.3 %; Mean Corpuscular HGB Conc 29.9 g/dL (30-55); Mean Corpuscular Hemoglobin 25.5 pg (27-33); Mean Corpuscular Volume 85.5 fl (82-101); Mean Platelet Volume 10.1 fL (7.4-10.4); Monocytes # 1.3 10^3/uL (0.2-0.9); Neutrophils # 7.51 10^3/uL (1.8-7.7); Nucleated Red Blood Cells % 0 %; Platelet Count 280 10^3/cmm (157-399); Red Blood Count 4.15 10^6/uL (3.85-5.65); Red Cell Distribution Width 16.4 % (12.1-15.1); White Blood Count 10.88 10^3/uL (3.29-11.43)
[2024-10-03 05:09] LABS: Blood Urea Nitrogen 30 mg/dL (8-23); Calcium 9.2 mg/dL (8.5-10.5); Carbon Dioxide 22 mmol/L (22-29); Chloride 103 mmol/L (98-107); Creatinine Clr Calc Pharmacy 57.5811; Glucose 83 mg/dL (65-115); NT Pro B Type Natriuretic Pept 6576 pg/mL (0-125); Osmolality Calculated 295 mOsm/kg (285-295); Sodium 140 mmol/L (136-145)
--- NOTE | 2024-10-03 07:52 | USR_ITS ---
PROCEDURE INFORMATION: Exam: US Retroperitoneal, Complete, Kidneys and Bladder Exam date and time: 10/03/2024 8:36 AM Age: 64 years old Clinical indication: Condition or disease; Other: Adam TECHNIQUE: Imaging protocol: Real-time ultrasound of the retroperitoneum with image documentation. Complete exam focused on the bilateral kidneys and urinary bladder. COMPARISON: [place] [id number] 10/02/2024 4:52 PM FINDINGS: Right kidney is unremarkable in overall size measuring 10.0 x 5.6 x 5.8 cm. Renal cortex is unremarkable in thickness and echotexture. 4.0 x 3.0 x 3.2 cm circumscribed hypoechoic exophytic mass midpole concerning for neoplasm. 2.2 x 1.8 x 1.9 cm mildly complex cortical cyst midpole, indeterminate. No calculi or hydronephrosis. Left kidney is unremarkable overall size, contour measuring 11.3 x 5.3 x 5.6 cm. Renal cortex is unremarkable in thickness and echotexture. No masses, calculi or hydronephrosis. Urinary bladder is poorly visualized with Marsh catheter balloon present. Bladder wall appears to be thickened in an irregular fashion. Questionable intraluminal bladder mass that may be artifactual related to the Marsh catheter but needs further evaluation. Extensive ascites noted throughout the abdomen and pelvis. US/US renal BI* [id number] IMPRESSION: 1. 4 cm circumscribed right renal mass and 2.2 cm indeterminate right renal cyst. Recommend nonemergent MRI examination of the kidneys or CT urography for further evaluation. 2. Limited assessment of the urinary bladder that appears abnormally thickened with questionable intraluminal bladder mass that needs further evaluation and could also be further assessed on CT urography. 3. Extensive ascites throughout the abdomen and pelvis.
[2024-10-03] MEDS: spironolactone 25 mg Tablet PO (09:08)
[2024-10-03] MEDS: sacubitril/valsartan 24-26 mg Tablet 1 EACH PO ×2 (09:08→17:33)
[2024-10-03] MEDS: aspirin 81 mg EC Tablet PO (09:08)
[2024-10-03] MEDS: bumetanide 0.25 mg/mL SDV 4 mL 1 MG IVP ×2 (09:08→21:46)
[2024-10-03] MEDS: metoprolol succinate ER (24 HR) 50 mg Tablet PO (09:08)
--- NOTE | 2024-10-03 09:17 | PM.CONSULT ---
Providers/Reason For Consult Consulting Physician/Specialty*: Wound care Reason for Consult*: Open wounds to bilateral lower extremities Requesting Physician: Dr. Ortiz Attending Physician: Ashish Ortiz MD Primary Care Provider: Itz Pierson MD History of Present Illness History of Present Illness Ely Hare is a 64 year old male with a past medical history of hypertension, hyperlipidemia, rheumatoid arthritis of, obstructive sleep apnea, cardiomyopathy with EF of 15%, bilateral lower extremity venous ulcers, osteomyelitis of the left second metatarsal and right tibia-currently under treatment with vancomycin and meropenem.? He was evaluated at the shelter on October 01 by myself.? Bedside debridement was performed at this time to the 4 wounds on his bilateral lower extremities.? A 2 layer compression wrap was placed with Hydrofera Blue over the wounds.? This was planned to be changed tomorrow 10/03 at the shelter. On October 02, he presented to the emergency room due to increased shortness of breath, lower extremity edema, and increased abdominal distention.? He was [facility] due to acute systolic CHF exacerbation.? He is being medically managed by hospitalist service.? He is receiving IV vancomycin and meropenem inpatient for continued therapy of osteomyelitis of the right tibia and left second metatarsal. Wound care has been consulted for evaluation and treatment of the ulcerations on his bilateral lower extremities. He had a venous duplex ultrasound last night which revealed no evidence of DVT bilaterally. The wraps were removed for this test. Upon entering the room, patient had clean and dry dressings over the open wounds. Review of Systems General: Reports: 10 or more systems reviewed and unremarkable except in HPI and below Const: Denies: fever(s), chills or body aches Card: Reports: swelling of feet/ankles; Denies: chest pain, palpitations or irregular heart rhythm Skin/Breast: Reports: sores (Reports from falling down stairs many months ago) Medications/Allergies Home Medications ?Medication ?Instructions ?Recorded ?Confirmed ?Last Taken ?Type aspirin 81 mg tablet,delayed 81 mg PO DAILY #30 tabs 06/17/24 10/03/24 10/02/24 08:30 Rx release spironolactone 25 mg tablet 25 mg PO DAILY #30 tabs 08/29/24 10/03/24 10/02/24 08:30 Rx acetaminophen 325 mg capsule 650 mg PO Q6H PRN pain or fever 10/01/24 10/03/24 09/29/24 03:15 History bumetanide 0.5 mg tablet 0.5 mg PO DAILY 10/01/24 10/03/24 10/02/24 08:30 History empagliflozin 10 mg tablet 10 mg PO DAILY 10/01/24 10/03/24 10/02/24 08:30 History (Jardiance) meropenem 1 gram intravenous 1 g IV Q8H 10/01/24 10/03/24 10/02/24 05:30 History solution metoprolol succinate 50 mg 50 mg PO DAILY 10/01/24 10/03/24 10/02/24 08:30 History tablet,extended release 24 hr [id number] 1 tab PO DAILY 10/01/24 10/03/24 10/02/24 08:30 History fumarate 19 mg-folic acid 400 mcg tablet (Thera-M) omeprazole 20 mg capsule,delayed 20 mg PO DAILY 10/01/24 10/03/24 10/02/24 08:30 History release vancomycin 1 gram/200 mL in 1 g IV Q24H 10/01/24 10/03/24 10/02/24 08:30 History diluent combination IV piggyback bacitracin 500 unit/gram topical 1 applic topical DAILY 10/03/24 10/03/24 10/01/24 11:00 History ointment sacubitril 49 mg-valsartan 51 mg 1 tab PO BID 10/03/24 10/03/24 10/02/24 08:30 History tablet Allergies Allergy/AdvReac Type Severity Reaction Status Date / Time No Known Allergies Allergy Verified 10/01/24 15:54 Current Medications Generic Name Dose Route Start Last Admin Trade Name Freq PRN Reason Stop Dose Admin Aspirin 81 mg 10/03/24 09:00 10/03/24 09:08 Aspirin 81 Mg Ec Tablet PO 81 mg DAILY AMBER Administration Bumetanide 1 mg 10/02/24 21:00 10/03/24 09:08 Bumetanide 0.25 Mg/Ml Sdv 4 Ml IVP 1 mg Q12H AMBER Administration Enoxaparin Sodium 40 mg 10/02/24 16:10 10/02/24 16:41 Enoxaparin 40 Mg/0.4 Ml Syringe SUBCUT 40 mg Q24H AMBER Administration Vancomycin HCl 1,000 mg/ 250 mls @ 250 mls/hr 10/03/24 04:45 10/03/24 05:05 Sodium Chloride IV Infused Q12H AMBER Infusion Meropenem 1,000 mg 10/02/24 16:10 10/03/24 09:08 Meropenem 1,000 Mg Sdv IVP 1,000 mg Q8H AMBER Administration Protocol Metoprolol Succinate 50 mg 10/03/24 09:00 10/03/24 09:08 Metoprolol Succinate Er (24 Hr) 50 Mg Tablet PO 50 mg DAILY AMBER Administration Pantoprazole Sodium 40 mg 10/02/24 16:10 10/02/24 16:42 Pantoprazole 40 Mg Sdv IVP 40 mg Q24H AMBER Administration Sacubitril/Valsartan 1 each 10/02/24 18:00 10/03/24 09:08 Sacubitril/Valsartan 24-26 Mg Tablet PO 1 each BID AMBER Administration Spironolactone 25 mg 10/03/24 09:00 10/03/24 09:08 Spironolactone 25 Mg Tablet PO 25 mg DAILY AMBER Administration Trazodone HCl 50 mg 10/02/24 20:47 10/02/24 21:16 Trazodone 50 Mg Tablet PO 50 mg BEDTIME PRN Administration INSOMNIA PFSH Acute PFSH: Medical History Chronic kidney disease Gout Type 2 diabetes mellitus Cardiogenic shock 06/2024 Hypertension Chronic wound of extremity HFrEF (heart failure with reduced ejection fraction) Hypertensive urgency Lower extremity edema Third degree heart block Status post pacemaker placement, 2024 [facility] Congestive heart failure Seropositive rheumatoid arthritis of multiple sites Surgical History H/O umbilical hernia repair (~11/2022) History of cardiac catheterization 03/06/2024 nonischemic cardiomyopathy [facility] - LM normal; LAD luminal irregularities; LCx, OM1, OM2, RCA, PDA normal S/P placement of cardiac pacemaker (04/29/24) kalyani chamber, placed at [facility], due to 3rd degree heart block Status post debridement 06/2024 Dr Cervantes RLE wounds x several 04/2024 BLE at [facility], left 2nd toe ray amputation History of hernia repair Family History Mother Cancer breast Father Cancer non hodgkins lymphoma Other CAD (coronary artery disease) Diabetes Family history of premature coronary artery disease Denies family history of Rheumatoid arthritis Lupus Hyperlipidemia Chronic kidney disease (CKD) Lung disease Hypertension Stroke Social History Smoking and tobacco/nicotine status: never used tobacco/nicotine Alcohol intake: never Substance/Drug Use: never Lives independently: Yes Marital status: Single Number of children: 1 Current occupational status: retired Special jennifer needs: No Agree to transfusion: Yes Vitals/I&O/Wt Last Vital Signs Temp 98.9 F 10/03/24 07:49 Pulse 80 10/03/24 07:49 Resp 22 H 10/03/24 07:49 BP 135/91 10/03/24 07:49 Pulse Ox 94 10/03/24 07:49 O2 Del Method Nasal Cannula 10/03/24 07:49 O2 Flow Rate 2 10/03/24 03:47 10/02/24 10/03/24 10/03/24 22:59 06:59 14:59 Intake Total 520 / 520 250 / 770 Output Total 1370 / 1370 2325 / 3695 Balance -850 / -850 -2075 / -2925 Weight last 48 hrs Weight 101.242 kg Weight 90.718 kg Weight 90.718 kg Physical Exam Const: COMMON NORMALS: no acute distress, patient oriented x3 and alert GENERAL APPEARANCE: cooperative and comfortable NUTRITIONAL APPEARANCE: obese ORIENTATION/CONSCIOUSNESS: Yes awake, Yes oriented to person, Yes oriented to place and Yes oriented to time HENMT: HEAD & SCALP: normal to inspection Eye: GENERAL EYE: appearance normal, both eyes and all related structures Neck/C-Spine: GENERAL: Yes trachea midline Chest: CHEST: Yes Symmetrical chest wall rise Resp: COMMON NORMALS: normal respiratory effort EFFORT & INSPECTION: Yes able to speak in complete sentences and Yes symmetric chest movement Cardio: COMMON NORMALS: regular rate and regular rhythm RATE: regular rate RHYTHM: regular rhythm Extremity: COMMON NORMALS: capillary refill normal RIGHT LOWER EXTREMITY: Yes lower leg Right lower leg: Yes inspection (1+ pitting edema) and Yes neurovascular exam (2+ palpable dorsalis pedis pulse, less than 3-second capillary refill) LEFT LOWER EXTREMITY: Yes lower leg Left lower leg: Yes inspection (1+ edema) and Yes neurovascular exam (2+ palpable dorsalis pedis pulse; capillary refill less than 3 seconds) and Yes foot & digits Left foot and digits: Yes inspection (Second toe absent, crusting over amputation site with no active drainage ) Neuro: COMMON NORMALS: patient oriented x3 SENSORIUM/ORIENTATION: Yes alert, Yes oriented to person, Yes oriented to place and Yes oriented to time Psych: COMMON NORMALS: mental status grossly normal, Normal thought process present, cooperative and speech normal ATTITUDE: Yes calm ACTIVITY/MOTOR BEHAVIOR: Yes appropriate eye contact SPEECH: Yes normal speech THOUGHT PROCESS: Normal thought process present Skin: OTHER: See wound assessment Urinary Catheter Management: Marsh: Cath Placed During This Visit: yes Reason for Continuing Indwelling Catheter: Accurate Measurement of Urinary Output in Critically Ill Patients Urinary Catheter Date of Insertion: 10/02/24 Urinary Catheter Time of Insertion: 14:53 Data 10/03/24 04:01 10/03/24 04:01 A&P Assessment and plan (1) Type 2 diabetes mellitus with other skin ulcer: (2) Venous stasis ulcer: Plan Clinically appear to be venous stasis ulcerations, no confirmatory studies are available to confirm venous insufficiency. It would be beneficial to obtain venous ultrasounds to investigate for reflux once outpatient. Lower extremity edema is definitely contributing to non/slow healing nature of these wounds. Right is slightly more swollen than left. Capillary refill less than 3 seconds in distal digits of both feet. Palpable dorsalis pedis 2+ pulses bilaterally. Open wounds to left anterior lower leg, left posterior lower leg, right anterior lower leg, and right lateral lower leg appear slightly improved from last evaluation on October 01. All wounds are without signs or symptoms of active infection. Will continue with Hydrofera Blue to wounds secured with a 2 layer compression wrap. Frequent leg elevation is encouraged. 2 layer wraps were applied bilaterally by myself. No signs of distal ischemia were noted after wrap application. - The wraps will need to be changed on Friday 10/06 or sooner if the wrap slides down or drainage strikethrough is noted. Upon discharge, he plans to go back to [facility] shelter. The shelter should continue changing the wrap every 3 days until time of discharge which is expected by 10/10. He is currently scheduled for an appointment at [facility] wound care on September 10 at 9:15am pending discharge from shelter. Wound care will follow up tomorrow to ensure wraps are still proper position and good condition. PDMP PDMP Reviewed: Not Reviewed Consult Attestations Time Spent in Patient Care: 16 - 35 minutes Coding Level of Care Code Acute Code for Chg Fwd Diagnoses Type 2 diabetes mellitus with other skin ulcer E11.622; L98.499 Venous stasis ulcer I83.009; L97.909 Wound Assessment Wound Assessment Wound Number 1 Lower Leg: Cluster Wound: Yes Descriptor: Left and Anterior Primary Etiology: Diabetic Would/Ulcer of the Lower Extremity Classification: Grade 1 Length (cm): 2 cm Width (cm): 4.5 cm Depth (cm): 0.1 cm Epithelialization: None Tunneling: No Undermining: No Limited to Skin Breakdown: Yes Exudate Amount: Medium Drainage Type: Serosanguineous Foul Odor After Cleansing: No Slough/Fibrin?: Yes Granulation Amount: Small (1-33%) Granulation Quality: Henagar Necrotic Amount: Medium (34-66%) Necrotic Type: Adherent Slough Wound Number 2 Lower Leg: Descriptor: Right and Anterior Primary Etiology: Diabetic Would/Ulcer of the Lower Extremity Classification: Grade 3 Length (cm): 10.3 cm Width (cm): 1.8 cm Depth (cm): 0.2 cm Epithelialization: Small (1-33%) Tunneling: No Undermining: No Limited to Skin Breakdown: No Exudate Amount: Medium Drainage Type: Serosanguineous Foul Odor After Cleansing: No Slough/Fibrin?: Yes Granulation Amount: Small (1-33%) Granulation Quality: Henagar Necrotic Amount: Medium (34-66%) Necrotic Type: Adherent Slough Wound Number 3 Lower Leg: Descriptor: Right and Lateral Primary Etiology: Diabetic Would/Ulcer of the Lower Extremity Classification: Grade 1 Length (cm): 3 cm Width (cm): 1 cm Depth (cm): 0.1 cm Epithelialization: Small (1-33%) Tunneling: No Undermining: No Limited to Skin Breakdown: Yes Exudate Amount: Medium Drainage Type: Serosanguineous Foul Odor After Cleansing: No Slough/Fibrin?: Yes Granulation Amount: Medium (34-66%) Granulation Quality: Henagar Necrotic Amount: Small (1-33%) Necrotic Type: Adherent Slough Wound Number 4 Lower Leg: Cluster Wound: Yes Descriptor: Left and Posterior Primary Etiology: Diabetic Would/Ulcer of the Lower Extremity Classification: Grade 1 Length (cm): 3 cm Width (cm): 5 cm Depth (cm): 0.1 cm Epithelialization: Small (1-33%) Tunneling: No Undermining: No Limited to Skin Breakdown: Yes Exudate Amount: Medium Drainage Type: Serosanguineous Foul Odor After Cleansing: No Slough/Fibrin?: Yes Granulation Amount: Medium (34-66%) Granulation Quality: Henagar Necrotic Amount: Small (1-33%) Necrotic Type: Adherent Slough Non Wound Condition 1 Amputation Site- Toe: Descriptor: Left (2nd) Length (cm): 2.5 cm Width (cm): 0.4 cm Exudate Amount: None Present: Wound Orders All Wounds: All open wounds to bilateral lower extremities Duration: 14 Days Dressing change frequency: Other (Change every 3 days; check wrap placement and capillary refill daily) Wound Cleansing: Saline Skin Barriers/Olivia-Wound Care: Vitamin A&D Ointment (To dry skin) Primary Wound Care Dressing: Hydrofera Blue Secondary Wound Care Dressin layer compression wrap Bathing/Showering/Hygiene: Do not shower or bathe in tub. Sponge bath only. (While wraps are on) Edema Control: Elevate legs to heart level for 30 mins daily and/or when sitting and Avoid standing for long periods of time
--- NOTE | 2024-10-03 10:43 | CTR_ITS ---
PROCEDURE INFORMATION: Exam: CT Abdomen And Pelvis Without Contrast Exam date and time: 10/03/2024 11:27 AM Age: 64 years old Clinical indication: Abnormal findings; Abnormal radiologic finding of the abdomen; Radiologic exam and body structure: US renal; Prior surgery; Surgery date: 6+ months; Surgery type: Pacer; Abdominal distention, concern for bladder and renal mass TECHNIQUE: Imaging protocol: Computed tomography of the abdomen and pelvis without contrast. Radiation optimization: All CT scans at this facility use at least one of these dose optimization techniques: automated exposure control; mA and/or kV adjustment per patient size (includes targeted exams where dose is matched to clinical indication); or iterative reconstruction. COMPARISON: US renal BI* [id number] 10/03/2024 8:36 AM RADIATION DOSE METRICS: Total DLP (mGy-cm): 1175.29 FINDINGS: Lungs: Lung bases are clear. Chronic granulomatous calcifications right hilum. Heart: Heart is mildly enlarged. Liver: Liver has a mildly shrunken, cirrhotic contour. No masses detected. Gallbladder and biliary ducts: Gallbladder is contracted with a few small gallstones. Bile ducts are not dilated. Pancreas: Unremarkable. Main pancreatic duct is not significantly dilated. Spleen: Spleen is mildly enlarged with granulomatous calcifications present. Adrenal glands: Normal. No mass. Kidneys and ureters: 4 x 3.8 cm isodense right renal mass arising from the lower pole presumed solid in nature. There is an adjacent smaller cortical cyst lower pole with indeterminate density. Left kidney is unremarkable. Stomach and bowel: There are multiple diverticuli throughout the large bowel without evidence of diverticulitis. Appendix: No evidence of appendicitis. Intraperitoneal space: Moderate-large amount of ascites throughout the abdomen and pelvis posterior to volume overload. There are scattered small nodular densities within the peritoneal cavity in the upper abdomen best demonstrated in the coronal plane difficult to assess due to the surrounding ascites in needs follow-up to exclude peritoneal metastasis. Vasculature: Scattered atherosclerotic changes of the abdominal aorta and iliac vessels. No aortic aneurysm. Lymph nodes: There is mild pelvic lymphadenopathy along the lower iliac marylin chains bilaterally, nonspecific. Readings. Urinary bladder: There is a Marsh catheter balloon within the urinary bladder which is contracted limiting assessment. Bladder wall appears to be moderately thickened difficult to further assess. Reproductive: Unremarkable as visualized. Bones/joints: Moderate multilevel degenerative changes throughout the thoracolumbar spine. No acute bony abnormalities. Soft tissues: Diffuse anasarca throughout the soft tissues likely due to volume overload. Right-sided inguinal hernia containing ascitic fluid. CT/CT abdomen pelvis wo con [id number] IMPRESSION: 1. 4 cm solid-appearing right renal mass concerning for possible renal cell carcinoma. Indeterminate right renal cyst. Recommend contrast enhanced MRI exam of the kidneys for further evaluation. 2. Extensive anasarca of the soft tissues and moderate-large amount of ascites the main part be due to volume overload.. 3. Limited assessment of the urinary bladder with nonspecific bladder wall thickening that would be better evaluated with CT urography or MRI exam. 4. Scattered peritoneal nodules difficult to assess due to ascites but raises concern for peritoneal metastasis for which continued follow up advised. 5. Mild pelvic lymphadenopathy also nonspecific and needs follow up. 6. Liver contour suggestive of mild cirrhosis. 7. Mild splenomegaly with chronic granulomatous calcifications. 8. Additional chronic findings as above.
--- NOTE | 2024-10-03 15:43 | P.PN_ITS ---
Subjective 2 Subjective: Patient was seen this morning, continues to have abdominal distention, fluid wave present, no nausea, no vomiting, discussed doing a CT scan abdomen pelvis, he has had good urine output, will continue to diurese, his edema is improving Vitals/I&O/Wt Last Vital Signs Temp 98.0 F 10/03/24 12:00 Pulse 81 10/03/24 12:00 Resp 24 H 10/03/24 12:00 BP 138/95 10/03/24 12:00 Pulse Ox 95 10/03/24 12:00 O2 Del Method Room Air 10/03/24 12:00 O2 Flow Rate 2 10/03/24 03:47 10/03/24 10/03/24 10/03/24 06:59 14:59 22:59 Intake Total 250 / 770 600 / 600 Output Total 2325 / 3695 3050 / 3050 Balance -2075 / -2925 -2450 / -2450 Weight last 48 hrs Weight 101.242 kg Weight 90.718 kg Weight 90.718 kg Physical Exam 2 Const: COMMON NORMALS: no acute distress and patient oriented x3 Resp: COMMON NORMALS: normal respiratory effort, No retractions, No use of accessory muscles and clear to auscultation bilaterally AUSCULTATION: clear to auscultation bilaterally Cardio: COMMON NORMALS: regular rate, regular rhythm, S1 normal heart sound present and S2 normal heart sound present RATE: regular rate RHYTHM: r egular rhythm HEART SOUNDS: S1 normal heart sound present and S2 normal heart sound present GI: OTHER: Abdomen soft, distended, fluid wave present, does have abdominal wall edema, no guarding, no rebound, rigidity Extremity: NARRATIVE EXTREMITY EXAM: 2+ pitting edema Bilateral lower extremity wounds Neuro: COMMON NORMALS: patient oriented x3 Psych: COMMON NORMALS: mental status grossly normal Urinary Catheter Management: Marsh: Cath Placed During This Visit: yes Reason for Continuing Indwelling Catheter: Accurate Measurement of Urinary Output in Critically Ill Patients Urinary Catheter Date of Insertion: 10/02/24 Urinary Catheter Time of Insertion: 14:53 Data 10/03/24 04:01 10/03/24 04:01 A&P Assessment and plan (1) HFrEF (heart failure with reduced ejection fraction): (2) Nonischemic congestive cardiomyopathy: (3) PICC (peripherally inserted central catheter) in place: (4) Type 2 diabetes mellitus: (5) SAMANTHA (acute kidney injury): (6) Osteomyelitis of foot: (7) Venous stasis ulcers of both lower extremities: (8) Ulcer of left foot with fat layer exposed: (9) Acute exacerbation of CHF (congestive heart failure): Plan Acute systolic CHF exacerbation - With abdominal wall edema, anasarca, 2+ pitting edema, BNP 7839 -History of systolic CHF EF 10 to 15% - -6 L so far Plan - Fluid restrictions of 1000 cc - Bumex 1 mg IV every 12 hours - Marsh catheter in place - Monitor your, her creatinine - Repeat cardiac echo pending Bilateral lower extremity swelling, venous ultrasound negative for DVT History of bilateral lower extremity wounds - Consult wound care - History of debridement Left foot abscess, second metatarsal osteomyelitis - Continue vancomycin - Continue meropenem Type 2 diabetes mellitus, low-dose sliding scale Patient has hematuria - Renal ultrasound Abdominal distention, CT scan abdomen pelvis Full code Lovenox for DVT prophylaxis PDMP PDMP Reviewed: Not Reviewed Attestations 2 Medical Necessity Statement*: Patient requires hospitalization for acute systolic CHF exacerbation requiring IV diuresis Diagnoses HFrEF (heart failure with reduced ejection fraction) I50.20 Nonischemic congestive cardiomyopathy I42.0 PICC (peripherally inserted central catheter) in place Z45.2 Type 2 diabetes mellitus with diabetic peripheral angiopathy without gangrene, without long-term current use of insulin E11.51 Diabetes mellitus complication detail: with peripheral angiopathy without gangrene Diabetes mellitus complication status: with circulatory complication Diabetes mellitus care home insulin use: without medical terminologist use SAMANTHA (acute kidney injury) N17.9 Subacute osteomyelitis of left foot M86.272 Osteomyelitis type: subacute Laterality: left Venous stasis ulcers of both lower extremities I83.019; I83.029; L97.919; L97.929 Ulcer of left foot with fat layer exposed L97.522 Acute on chronic systolic congestive heart failure I50.23 Heart failure type: systolic
[2024-10-03] MEDS: pantoprazole 40 mg SDV IVP (17:34)
[2024-10-03] MEDS: enoxaparin 40 mg/0.4 mL Syringe SUBCUT (17:34)
[2024-10-03] MEDS: potassium chloride ER 20 mEq Tablet 40 MEQ PO (17:38)
[2024-10-03] MEDS: trazodone 50 mg Tablet PO (21:47)
[2024-10-04] MEDS: meropenem 1,000 mg SDV 1000 MG IVP ×3 (00:58→16:04)
[2024-10-04 03:17] LABS: Basophils # 0.1 10^3/uL (0.0-0.1); Basophils % 0.9 %; Eosinophils # 0.5 10^3/uL (0.0-0.8); Eosinophils % 5.3 %; Hematocrit 33.4 % (37-53); Lymphocytes # 0.9 10^3/uL (0.8-4.8); Mean Corpuscular HGB Conc 30.5 g/dL (30-55); Mean Corpuscular Hemoglobin 25.4 pg (27-33); Mean Corpuscular Volume 83.3 fl (82-101); Mean Platelet Volume 10.5 fL (7.4-10.4); Monocytes # 1.3 10^3/uL (0.2-0.9); Monocytes % 12.6 %; Neutrophils # 7.28 10^3/uL (1.8-7.7); Neutrophils % 71.7 %; Nucleated Red Blood Cells % 0 %; Platelet Count 314 10^3/cmm (157-399); Red Blood Count 4.01 10^6/uL (3.85-5.65); Red Cell Distribution Width 16.2 % (12.1-15.1); White Blood Count 10.15 10^3/uL (3.29-11.43)
[2024-10-04 03:28] LABS: INR 1.33 (0.8-1.2)
[2024-10-04 03:45] LABS: NT Pro B Type Natriuretic Pept 4515 pg/mL (0-125)
[2024-10-04 03:46] LABS: Blood Urea Nitrogen 30 mg/dL (8-23); Calcium 9.1 mg/dL (8.5-10.5); Carbon Dioxide 27 mmol/L (22-29); Chloride 103 mmol/L (98-107); Creatinine Clr Calc Pharmacy 57.5811; Glucose 94 mg/dL (65-115); Osmolality Calculated 300 mOsm/kg (285-295); Sodium 142 mmol/L (136-145)
[2024-10-04 03:47] LABS: Anion Gap 16.6 (5-19); Potassium 4.6 mmol/L (3.5-5.1)
[2024-10-04 04:00] VITALS: BP 98/56; PULSE 75; RESP 17; TEMP 36.5; O2SAT 93
[2024-10-04] MEDS: VANCOMYCIN ADD-Vantage 1,000 MG in 0.9% NaCl ADD-Vantage 250 ML 250 MG IV (05:37)
[2024-10-04 08:00] VITALS: BP 107/71; BP 127/81; PULSE 76; PULSE 88; RESP 16; RESP 17; TEMP 36.5; TEMP 36.6
--- NOTE | 2024-10-04 09:07 | P.PN_ITS ---
Subjective 2 Subjective: Patient evaluated on [facility] stepdown unit today. The wraps are still in place and in good condition. Capillary refill is less than 3 in distal digits of bilateral feet. Vitals/I&O/Wt Last Vital Signs Temp 97.7 F 10/04/24 08:00 Pulse 76 10/04/24 08:00 Resp 17 10/04/24 08:00 BP 107/71 10/04/24 08:00 Pulse Ox 93 10/04/24 04:00 O2 Del Method Room Air 10/04/24 04:00 O2 Flow Rate 2 10/03/24 03:47 10/03/24 10/04/24 10/04/24 22:59 06:59 14:59 Intake Total 710 / 1310 0 / 1310 250 / 250 Output Total 1800 / 4850 3500 / 8350 Balance -1090 / -3540 -3500 / -7040 250 / 250 Weight last 48 hrs Weight 95.254 kg Weight 101.242 kg Weight 90.718 kg Weight 90.718 kg Physical Exam 2 Const: COMMON NORMALS: no acute distress, patient oriented x3 and alert G ENERAL APPEARANCE: cooperative and comfortable NUTRITIONAL APPEARANCE: obese ORIENTATION/CONSCIOUSNESS: Yes awake, Yes oriented to person, Yes oriented to place and Yes oriented to time HENMT: HEAD & SCALP: normal to inspection Eye: GENERAL EYE: appearance normal, both eyes and all related structures Neck/C-Spine: GENERAL: Yes trachea midline Chest: CHEST: Yes Symmetrical chest wall rise Resp: COMMON NORMALS: normal respiratory effort EFFORT & INSPECTION: Yes able to speak in complete sentences and Yes symmetric chest movement Cardio: COMMON NORMALS: regular rate RATE: regular rate Extremity: COMMON NORMALS: capillary refill normal NARRATIVE EXTREMITY EXAM: [address] to bi lateral lower extremities. Neuro: COMMON NORMALS: patient oriented x3 SENSORIUM/ORIENTATION: Yes alert, Yes oriented to person, Yes oriented to place and Yes oriented to time Psych: COMMON NORMALS: mental status grossly normal, Normal thought process present, cooperative and speech normal ATTITUDE: Yes calm ACTIVITY/MOTOR BEHAVIOR: Yes appropriate eye contact SPEECH: Yes normal speech THOUGHT PROCESS: Normal thought process present Urinary Catheter Management: Marsh: Cath Placed During This Visit: yes Reason for Continuing Indwelling Catheter: Accurate Measurement of Urinary Output in Critically Ill Patients Urinary Catheter Date of Insertion: 10/02/24 Urinary Catheter Time of Insertion: 14:53 Data 10/04/24 02:44 10/04/24 02:44 A&P Assessment and plan (1) Type 2 diabetes mellitus with other skin ulcer: (2) Venous stasis ulcer: Plan 10/03: Clinically appear to be venous stasis ulcerations, no confirmatory studies are available to confirm venous insufficiency. It would be beneficial to obtain venous ultrasounds to investigate for reflux once outpatient. Lower extremity edema is definitely contributing to non/slow healing nature of these wounds. Right is slightly more swollen than left. Capillary refill less than 3 seconds in distal digits of both feet. Palpable dorsalis pedis 2+ pulses bilaterally. Open wounds to left anterior lower leg, left posterior lower leg, right anterior lower leg, and right lateral lower leg appear slightly improved from last evaluation on October 01. All wounds are without signs or symptoms of active infection. Will continue with Hydrofera Blue to wounds secured with a 2 layer compression wrap. Frequent leg elevation is encouraged. 2 layer wraps were applied bilaterally by myself. No signs of distal ischemia were noted after wrap application. - The wraps will need to be changed on Friday 10/06 or sooner if the wrap slides down or drainage strikethrough is noted. Upon discharge, he plans to go back to [facility] half-way. The half-way should continue changing the wrap every 3 days until time of discharge which is expected by 10/10. 10/04: [address] with no drainage strikethrough noted. No signs of distal ischemia present. Again, educated patient to elevate legs as frequently as possible. Discouraged him from hanging them in a dependent position on the side of the bed or in the chair for any substantial amount of time. Plan still remains for him to discharge to [facility] to finish his IV antibiotics after discharge from hospital and follow-up with [facility] wound care outpatient after discharge from [facility]. Patient was educated that wraps can only stay on for 3 to 4 days at this time. He was provided with written instructions. Hydrofera blue over healed left 2nd toe amputation site for protection Wound care will sign off. Any further recommendations regarding wound care should be guided by hospitalist service. He is currently scheduled for an appointment at [facility] wound care on September 10 at 9:15am pending discharge from half-way. PDMP PDMP Reviewed: Not Reviewed Attestations 2 Medical Necessity Statement*: ongoing wound care Coding Level of Care Code Acute Code for Chg Fwd Diagnoses Type 2 diabetes mellitus with other skin ulcer E11.622; L98.499 Venous stasis ulcer I83.009; L97.909
[2024-10-04] MEDS: spironolactone 25 mg Tablet PO (09:33)
[2024-10-04] MEDS: metoprolol succinate ER (24 HR) 50 mg Tablet PO (09:33)
[2024-10-04] MEDS: aspirin 81 mg EC Tablet PO (09:33)
[2024-10-04] MEDS: sacubitril/valsartan 24-26 mg Tablet 1 EACH PO ×2 (09:33→17:55)
[2024-10-04 12:00] VITALS: BP 127/81; PULSE 88; RESP 16; TEMP 36.6
--- NOTE | 2024-10-04 12:42 | P.CONIM_ITS ---
<Statement entered by Jose Antonio Head M.D - 10/05/24 14:29> Patient was evaluated and cared for in conjunction with an advanced practice practitioner.? I personally examined the patient and reviewed the chart and all pertinent data including imaging, telemetry, and laboratory results.? I discussed the patient in detail with the advanced practice practitioner.? Please see? their note for complete consult note, testing results and agreed upon plan of care for the patient. Patient is diuresing well. He is volume overloaded. Continue diuretics. Monitor renal function and close I&O's. Will obtain records from [place] from prior cardiac catheterization. On review of prior cardiology assessments, it appears patient had coronary angiogram at [place] and had no significant CAD. Has nonischemic cardiomyopathy. Has a pacemaker GENERAL: Patient is alert, awake and oriented x3. HEART: Regular S1 and S2 LUNGS: Bilateral basilar crackles CENTRAL NERVOUS SYSTEM: Grossly nonfocal. EXTREMITIES: Lower extremities with 1+ edema Providers/Reason For Consult 2 Consulting Physician/Specialty*: Dr Head, cardiology Reason for Consult*: Cardiomyopathy Requesting Physician: Ashish Ortiz MD Attending Physician: Ashish Ortiz MD Primary Care Provider: Itz Pierson MD History of Present Illness History of Present Illness Ely Hare is a 64 year old male with past medical history of hypertension, hyperlipidemia, RA, LAURA, cardiomyopathy with LVEF 30% in Apr 2024 reduced to 15% since June this year, history of LE venous ulcers, left foot second metatarsal amputation with long-term antibiotic therapy, Medtronic dual-chamber pacemaker placement 04/29/2024 due to complete heart block. He was admitted to the hospital 10/02/2024 for increased shortness of breath, orthopnea, anasarca, abdominal distention with edema. BNP initially 7839. Echocardiogram 10/02/2024 revealing LVEF 15 to 20%, grade 3 diastolic dysfunction, moderate mitral regurgitation, mild to moderate aortic regurgitation. He has received Bumex 1 mg twice daily and is diuresing well. Review of Systems 2 Const: Denies: fever(s), chills, change in weight, fatigue or diaphoresis Eyes: Denies: change in vision ENMT: Denies: epistaxis Card: Reports: dyspnea on exertion; Denies: chest pain, palpitations, irregular heart rhythm, edema, syncope, pre- syncope, orthopnea or leg pain with exertion Resp: Denies: dyspnea, productive cough or wheezing GI: Denies: nausea, vomiting, hematemesis, hematochezia or melena : Denies: hematuria Musc: Denies: extremity swelling Robert/Lymph: Denies: easy bruising or easy bleeding Medications/Allergies Home Medications ?Medication ?Instructions ?Recorded ?Confirmed ?Last Taken ?Type aspirin 81 mg tablet,delayed 81 mg PO DAILY #30 tabs 0 06/17/24 10/03/24 10/02/24 08:30 Rx release spironolactone 25 mg tablet 25 mg PO DAILY #30 tabs 10/03/24 10/02/24 08:30 Rx acetaminophen 325 mg capsule 650 mg PO Q6H PRN pain or fever 10/01/24 10/03/24 09/29/24 03:15 History bumetanide 0.5 mg tablet 0.5 mg PO DAILY 10/01/2410/02/24 08:30 History empagliflozin 10 mg tablet 10 mg PO DAILY 10/01/2410/02/24 08:30 History (Jardiance) meropenem 1 gram intravenous 1 g IV Q8H 10/01/2410/0310/02/24 05:30 History solution metoprolol succinate 50 mg 50 mg PO DAILY 10/01/2410/02/24 08:30 History tablet,extended release 24 hr cvakqlxljkue-npjipnyt-xtdu 1 tab PO DAILY 10/01/2410/02/24 08:30 History fumarate 19 mg-folic acid 400 mcg tablet (Thera-M) omeprazole 20 mg capsule,delayed 20 mg PO DAILY 10/03/24 10/02/24 08:30 History release vancomycin 1 gram/200 mL in 1 g IV Q24H 10/01/2410/0310/02/24 08:30 History diluent combination IV piggyback bacitracin 500 unit/gram topical 1 applic topical DELORES Y 10/03/24 10/03/24 10/01/24 11:00 History ointment sacubitril 49 mg-valsartan 51 mg 1 tab PO BID 10/03/24 10/03/2425 08:30 History tablet Allergies Allergy/AdvReac Type Severity Reaction Status Date / Time No Known Allergies Allergy Verified 10/01/24 15:54 Current Medications Generic Name Dose Route Start Last Admin Trade Name Dannyq PRN Reason Stop Dose Admin Aspirin 81 mg 10/03/24 09:00 10/04/24 09:33 Aspirin 81 Mg Ec Tablet PO 81 mg DAILY AMBER Administration Enoxaparin Sodium 40 mg 10/02/24 16:10 10/03/24 17:34 Enoxaparin 40 Mg/0.4 Ml Syringe SUBCUT 40 mg Q24H AMBER Administration Vancomycin HCl 1,000 mg/ 250 mls @ 250 mls/hr 10/03/24 04:45 10/04/24 08:31 Sodium Chloride IV Infused On Hold: 10/04/24 11:03 Q12H AMBER Infusion Meropenem 1,000 mg 10/02/24 16:10 10/04/24 09:33 Meropenem 1,000 Mg Sdv IVP 1,000 mg Q8H AMBER Administration Protocol Metoprolol Succinate 50 mg 10/03/24 09:00 10/04/24 09:33 Metoprolol Succinate Er (24 Hr) 50 Mg Tablet PO 50 mg DAILY AMBER Administration Pantoprazole Sodium 40 mg 10/02/24 16:10 10/03/24 17:34 Pantoprazole 40 Mg Sdv IVP 40 mg Q24H AMBER Administration Sacubitril/Valsartan 1 each 10/02/24 18:00 10/04/24 09:33 Sacubitril/Valsartan 24-26 Mg Tablet PO 1 each BID AMBER Administration Spironolactone 25 mg 10/03/24 09:00 10/04/24 09:33 Spironolactone 25 Mg Tablet PO 25 mg DAILY AMBER Administration Trazodone HCl 50 mg 10/02/24 20:47 10/03/24 21:47 Trazodone 50 Mg Tablet PO 50 mg BEDTIME PRN Administration INSOMNIA PFSH Acute 2 PFSH: Medical History Chronic kidney disease Gout Type 2 diabetes mellitus Cardiogenic shock 06/2024 Hypertension Chronic wound of extremity HFrEF (heart failure with reduced ejection fraction) Hypertensive urgency Lower extremity edema Third degree heart block Status post pacemaker placement, 2024 [facility] Congestive heart failure Seropositive rheumatoid arthritis of multiple sites Surgical History (Updated 10/04/24 @ 13:29 by YOBANY Longo) H/O umbilical hernia repair (~11/2022) History of cardiac catheterization 03/06/2024 nonischemic cardiomyopathy [facility] normal; LAD luminal irregularities; LCx, OM1, OM2, RCA, PDA normal S/P placement of cardiac pacemaker (04/29/24) Medtronic dual chamber, placed at [facility], due to 3rd degree heart block Status post debridement 06/2024 Dr Cervantes RLE wounds x several 04/2024 BLE at [facility], left 2nd toe ray amputation History of hernia repair Family History Mother Cancer breast Father Cancer non hodgkins lymphoma Other CAD (coronary artery disease) Diabetes Family history of premature coronary artery disease Denies family history of Rheumatoid arthritis Lupus Hyperlipidemia Chronic kidney disease (CKD) Lung disease Hypertension Stroke Social History Smoking and tobacco/nicotine status: never used tobacco/nicotine Alcohol intake: never Substance/Drug Use: never Lives independently: Yes Marital status: Single Number of children: 1 Current occupational status: retired Special jennifer needs: No Agree to transfusion: Yes Vitals/I&O/Wt Last Vital Signs Temp 97.8 F 10/04/24 12:00 Pulse 88 10/04/24 12:00 Resp 16 10/04/24 12:00 BP 127/81 10/04/24 12:00 Pulse Ox 93 10/04/24 04:00 O2 Del Method Room Air 10/04/24 04:00 O2 Flow Rate 2 10/03/24 03:47 10/03/24 10/04/24 10/04/24 22:59 06:59 14:59 Intake Total 710 / 1310 0 / 1310 250 / 250 Output Total 1800 / 8350 3500 / 8350 700 / 700 Balance -1090 / -7040 -3500 / -7040 -450 / -450 Weight last 48 hrs Weight 210 lb Weight 223 lb 3.2 oz Weight 200 lb Physical Exam 2 Const: COMMON NORMALS: no acute distress and patient oriented x3 GENERAL APPEARANCE: cooperative and comfortable ORIENTATION/CONSCIOUSNESS: Yes awake, Yes oriented to person, Yes oriented to place and Yes oriented to time Chest: COMMONS NORMALS: normal inspection of the chest and normal palpation of entire chest wall CHEST: Yes Symmetrical chest wall rise Resp: COMMON NORMALS: normal respiratory effort, No retractions, No use of accessory muscles and clear to auscultation bilaterally EFFORT & INSPECTION: Yes symmetric chest movement AUSCULTATION: clear to auscultation bilaterally Cardio: COMMON NORMALS: regular rate, regular rhythm, S1 normal heart sound present, S2 normal heart sound present, No gallops present (Cardio), No clicks present (Cardio), No murmurs present (Cardio) and No rub (Cardio) RATE: r egular rate RHYTHM: regular rhythm HEART SOUNDS: S1 normal heart sound present and S2 normal heart sound present PERIPHERAL PULSES: radial pulses present Extremity: GENERAL: Yes edema Neuro: COMMON NORMALS: patient oriented x3 and moves all extremities S ENSORIUM/ORIENTATION: Yes oriented to person, Yes oriented to place and Yes oriented to time Urinary Catheter Management: Marsh: Cath Placed During This Visit: yes Reason for Continuing Indwelling Catheter: Accurate Measurement of Urinary Output in Critically Ill Patients Urinary Catheter Date of Insertion: 10/02/24 Urinary Catheter Time of Insertion: 14:53 Data 10/04/24 02:44 10/04/24 02:44 Micro: Microbiology 10/02/24 21:24 Urine Culture - Final Urine,Clean Catch A&P Assessment and plan (1) Nonischemic congestive cardiomyopathy: (2) S/P placement of cardiac pacemaker: (3) HFrEF (heart failure with reduced ejection fraction): (4) Type 2 diabetes mellitus: (5) Chronic kidney disease: (6) Venous stasis ulcers of both lower extremities: Plan At the time of my exam he is laying down flat, reports breathing is much improved. He has diuresed 10 L so far. Documentation from [facility] in [place] at the time of the pacemaker placement in April shows discussion regarding cardiomyopathy, apparently he had a coronary angiogram at [facility] which did not show significant blockage. Will request these records. No medication changes recommended, continue aspirin, metoprolol, Entresto, spironolactone. PDMP PDMP Reviewed: Not Reviewed Consult Attestations 2 Medical Necessity Statement: per hospitalist Coding Level of Care Code Acute Code for Chg Fwd Diagnoses Nonischemic congestive cardiomyopathy I42.0 S/P placement of cardiac pacemaker Z95.0 HFrEF (heart failure with reduced ejection fraction) I50.20 Type 2 diabetes mellitus with diabetic peripheral angiopathy without gangrene, without long-term current use of insulin E11.51 Diabetes mellitus complication detail: with peripheral angiopathy without gangrene Diabetes mellitus complication status: with circulatory complication Diabetes mellitus senior living 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
--- NOTE | 2024-10-04 15:00 | P.PN_ITS ---
Subjective 2 Subjective: - Patient's was seen this morning - Alert orient x 3, following all comman ds, his shortness of breath is improving he does have edema increased abdominal distention - No nausea, no vomiting - Yesterday and again today we did detai led discussion with him about his CT abdomen findings - Findings of renal mass, on the right, concerning for renal cell carcinoma - Discussed plans on doing paracentesis today for moderate ascites, also looking for cytology for possible malignancy - There is also scattered peritoneal nod ules, pelvic lymphadenopathy - We had a detailed discussion with him about his overall goals of care - For now he wants to see what his parac entesis shows - Discussed follow-up with urology for e valuation - Discussed watchful waiting versus surg ical intervention - The concern for surgical intervention will be his overall cardiac status with his low EF history - In addition his infection status, with his left foot, he would likely need to finish off antibiotic therapy - He also wants to speak to cardiology, will have cardiology consult, spoke to Dr. Head Vitals/I&O/Wt Last Vital Signs Temp 97.8 F 10/04/24 12:00 Pulse 88 10/04/24 12:00 Resp 16 10/04/24 12:00 BP 127/81 10/04/24 12:00 Pulse Ox 93 10/04/24 04:00 O2 Del Method Room Air 10/04/24 04:00 O2 Flow Rate 2 10/03/24 03:47 10/04/24 10/04/24 10/04/24 06:59 14:59 22:59 Intake Total 0 / 1310 370 / 370 Output Total 3500 / 8350 1400 / 1400 Balance -3500 / -7040 -1030 / -1030 Weight last 48 hrs Weight 95.254 kg Weight 101.242 kg Weight 90.718 kg Physical Exam 2 Const: COMMON NORMALS: no acute distress and patient oriented x3 Resp: COMMON NORMALS: normal respiratory effort, No retractions and No use of accessory muscles AUSCULTATION: crackles Cardio: COMMON NORMALS: regular rate, regular rhythm, S1 normal heart sound present and S2 normal heart sound present RATE: regular rate RHYTHM: r egular rhythm HEART SOUNDS: S1 normal heart sound present and S2 normal heart sound present GI: COMMON NORMALS: Normal to inspection, nondistended, normoactive bowel sounds present and non-tender OTHER: Anasarca, abdominal wall edema Extremity: OTHER: 2+ pitting edema Neuro: COMMON NORMALS: patient oriented x3 Psych: COMMON NORMALS: mental status grossly normal Urinary Catheter Management: Marsh: Cath Placed During This Visit: yes Reason for Continuing Indwelling Catheter: Accurate Measurement of Urinary Output in Critically Ill Patients Urinary Catheter Date of Insertion: 10/02/24 Urinary Catheter Time of Insertion: 14:53 Data 10/04/24 02:44 10/04/24 02:44 Micro: Microbiology 10/02/24 21:24 Urine Culture - Final Urine,Clean Catch A&P Assessment and plan (1) HFrEF (heart failure with reduced ejection fraction): (2) Nonischemic congestive cardiomyopathy: (3) PICC (peripherally inserted central catheter) in place: (4) Type 2 diabetes mellitus: (5) SAMANTHA (acute kidney injury): (6) Osteomyelitis of foot: (7) Venous stasis ulcers of both lower extremities: (8) Ulcer of left foot with fat layer exposed: (9) Acute exacerbation of CHF (congestive heart failure): (10) Renal mass: (11) Ascites: (12) Cirrhosis: Plan Acute systolic CHF exacerbation - With abdominal wall edema, anasarca, 2+ pitting edema, BNP 7839 -History of systolic CHF EF 10 to 15% - -10 L so far Plan - Fluid restrictions of 1000 cc - Bumex 1 mg once today, creatinine 1.5 - Marsh catheter in place - Monitor potassium, monitor creatinine - CONCLUSIONS LV systolic function is severely reduced with EF 15 to 20%. Grade 3 diastolic dysfunction. RV is moderately hypokinetic. Biatrial enlargement. Moderate mitral regurgitation. Mild to moderate aortic regurgitation. Mild tricuspid regurgitation. Pleural effusion seen IVC appears to be dilated Compared to prior echocardiogram from 06/2024, no significant changes are seen Systolic CHF EF 15 to 20% - Cardiology consulted Abdominal distention, ascites - Plan on paracentesis today - Will obtain cytology with paracentesis Concern for liver cirrhosis on CT scan - Potentially congestive hepatopathy from severe heart failure - Will need to follow-up with GI as outpatient Bilateral lower extremity swelling, venous ultrasound negative for DVT History of bilateral lower extremity wounds - Consult wound care - History of debridement Left foot abscess, second metatarsal osteomyelitis - Continue vancomycin - Continue meropenem Type 2 diabetes mellitus, low-dose sliding scale Patient has hematuria -Concerns for 4 4 cm renal mass, with peritoneal nodules, pelvic lymphadenopathy - CT/CT abdomen pelvis wo con [id number] IMPRESSION: 1. 4 cm solid-appearing right renal mass concerning for possible renal cell carcinoma. Indeterminate right renal cyst. Recommend contrast enhanced MRI exam of the kidneys for further evaluation. 2. Extensive anasarca of the soft tissues and moderate-large amount of ascites the main part be due to volume overload.. 3. Limited assessment of the urinary bladder with nonspecific bladder wall thickening that would be better evaluated with CT urography or MRI exam. 4. Scattered peritoneal nodules difficult to assess due to ascites but raises concern for peritoneal metastasis for which continued follow up advised. 5. Mild pelvic lymphadenopathy also nonspecific and needs follow up. 6. Liver contour suggestive of mild cirrhosis. 7. Mild splenomegaly with chronic granulomatous calcifications. 8. Additional chronic findings as above. Plan -Will need to follow-up with urology as outpatient -Will need to follow-up with oncology as outpatient Full code Lovenox for DVT prophylaxis will monitor closely PDMP PDMP Reviewed: Not Reviewed Attestations 2 Medical Necessity Statement*: Patient requires hospitalization, for systolic CHF, fluid overload, abdominal distention, ascites, left renal mass Diagnoses HFrEF (heart failure with reduced ejection fraction) I50.20 Nonischemic congestive cardiomyopathy I42.0 PICC (peripherally inserted central catheter) in place Z45.2 Type 2 diabetes mellitus with diabetic peripheral angiopathy without gangrene, without long-term current use of insulin E11.51 Diabetes mellitus complication detail: with peripheral angiopathy without gangrene Diabetes mellitus complication status: with circulatory complication 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
--- NOTE | 2024-10-04 15:42 | US_ITS ---
WS: [id number] ULTRASOUND-GUIDED PARACENTESIS CLINICAL INFORMATION: ascites Procedure Informed consent: The risks, benefits, and alternatives of the procedure were discussed with the patient. Verbal and written consent was obtained. Timeout: A timeout was performed to confirm the correct patient, procedure, and site. Preparation: A suitable skin site was identified. The patient was prepped and draped in usual sterile fashion. Lidocaine 1% was used for local anesthesia. Catheter: 4 American One-step Yueh catheter. Side: RIGHT lower quadrant. Fluid Volume: 2800 ml Color: Clear yellow DISPOSITION: Discarded safely. Complications: None. US/US paracentesis abd w [id number] IMPRESSION: Uncomplicated ultrasound-guided paracentesis. Removal of 2800 cc
--- NOTE | 2024-10-04 15:58 | PC.SOCIAL ---
IMM updated IMM dated and initialed copy given to patient and Copy placed in chart.
[2024-10-04 16:00] VITALS: BP 123/74; PULSE 82; RESP 22; TEMP 36.5
[2024-10-04] MEDS: pantoprazole 40 mg SDV IVP (16:04)
[2024-10-04] MEDS: bumetanide 0.25 mg/mL SDV 4 mL 1 MG IVP (16:04)
[2024-10-04 16:13] LABS: Body Fluid Polynuclear #Cells 0.072; Body Fluid WBC 568 /uL; Monocytes # Body Fluid 0.496
[2024-10-04 16:15] LABS: Apprearance, Body Fluid CLOUDY; Color, Body Fluid YELLOW; Cyto Order Verification Order Verified; PATH Referral YES
[2024-10-04 16:27] LABS: Body Fluid Specific Gravity 1.025
[2024-10-04 16:36] LABS: Albumin Body Fluid 2.3 g/dL; Fluid Alkaline Phos. 68 IU/L; LDH Body Fluid 100 U/L; Total Protein Body Fluid 3.6 g/dL
[2024-10-04 16:37] LABS: Cholesterol Body Fluid 48 mg/dL (0-200); Triglycerides Body Fluid 22 mg/dL (0-150); Uric Acid Body Fluid 11 mg/dL
[2024-10-04 17:14] LABS: Vancomycin Trough 33.5 ug/mL (10-15)
[2024-10-04 20:00] VITALS: O2SAT 99
[2024-10-04 20:13] VITALS: BP 128/87; PULSE 81; RESP 15; TEMP 37.1
[2024-10-04] MEDS: trazodone 50 mg Tablet PO (22:41)
[2024-10-05] VITALS (7 sets, daily range): BP systolic 107–140; BP diastolic 62–98; PULSE 66–81; RESP 16–18; TEMP 36.5–37.4; O2SAT 90–100; BMI 28.7
[2024-10-05] MEDS: meropenem 1,000 mg SDV 1000 MG IVP ×3 (00:30→16:45)
[2024-10-05 05:48] LABS: Basophils # 0.1 10^3/uL (0.0-0.1); Basophils % 0.7 %; Eosinophils # 0.8 10^3/uL (0.0-0.8); Eosinophils % 6.6 %; Hematocrit 33.5 % (37-53); Lymphocytes # 0.9 10^3/uL (0.8-4.8); Lymphocytes % 7.3 %; Mean Corpuscular HGB Conc 30.7 g/dL (30-55); Mean Corpuscular Hemoglobin 25.8 pg (27-33); Mean Corpuscular Volume 83.8 fl (82-101); Monocytes # 1.5 10^3/uL (0.2-0.9); Monocytes % 12.2 %; Neutrophils % 72.7 %; Nucleated Red Blood Cells % 0 %; Platelet Count 287 10^3/cmm (157-399); Red Cell Distribution Width 16.3 % (12.1-15.1); White Blood Count 12.11 10^3/uL (3.29-11.43)
[2024-10-05 06:08] LABS: Blood Urea Nitrogen 30 mg/dL (8-23); Calcium 8.8 mg/dL (8.5-10.5); Carbon Dioxide 31 mmol/L (22-29); Chloride 97 mmol/L (98-107); Creatinine Clr Calc Pharmacy 64.5205; Glomerular Filtration Rate 55.4 mL/min (90-130); Glucose 93 mg/dL (65-115); Osmolality Calculated 292 mOsm/kg (285-295); Sodium 138 mmol/L (136-145)
[2024-10-05 06:11] LABS: Anion Gap 14.6 (5-19); NT Pro B Type Natriuretic Pept 3570 pg/mL (0-125); Potassium 4.6 mmol/L (3.5-5.1)
[2024-10-05] MEDS: metoprolol succinate ER (24 HR) 50 mg Tablet PO (10:02)
[2024-10-05] MEDS: aspirin 81 mg EC Tablet PO (10:02)
[2024-10-05] MEDS: spironolactone 25 mg Tablet PO (10:02)
[2024-10-05] MEDS: sacubitril/valsartan 24-26 mg Tablet 1 EACH PO ×2 (10:02→16:45)
--- NOTE | 2024-10-05 12:59 | P.PN_ITS ---
Vitals/I&O/Wt Last Vital Signs Temp 99.4 F 10/05/24 11:59 Pulse 80 10/05/24 11:59 Resp 18 10/05/24 11:59 BP 130/98 10/05/24 11:59 Pulse Ox 98 10/05/24 11:59 O2 Del Method Room Air 10/05/24 11:59 O2 Flow Rate 2 10/05/24 08:00 10/04/24 10/05/24 10/05/24 22:59 06:59 14:59 Intake Total 330 / 700 120 / 120 Output Total 2650 / 4050 1999 / 6050 Balance -2320 / -3350 -2000 / -5350 120 / 120 Weight last 48 hrs Weight 210 lb Physical Exam 2 Urinary Catheter Management: Marsh: Cath Placed During This Visit: yes Reason for Continuing Indwelling Catheter: Accurate Measurement of Urinary Output in Critically Ill Patients Urinary Catheter Date of Insertion: 10/02/24 Urinary Catheter Time of Insertion: 14:53 Data 10/05/24 04:44 10/05/24 04:44 Micro: Microbiology 10/04/24 15:30 Gram Stain - Final Peritoneal Fluid 10/02/24 21:24 Urine Culture - Final Urine,Clean Catch A&P PDMP PDMP Reviewed: Not Reviewed Coding Level of Care Code Acute Code for Chg Fwd
--- NOTE | 2024-10-05 14:38 | P.PN_ITS ---
Subjective 2 Subjective: Patient was seen this morning, currently alert to person, to place, to time, he follows all commands he feels significantly better after the paracentesis, Vitals/I&O/Wt Last Vital Signs Temp 99.4 F 10/05/24 11:59 Pulse 80 10/05/24 11:59 Resp 18 10/05/24 11:59 BP 130/98 10/05/24 11:59 Pulse Ox 98 10/05/24 11:59 O2 Del Method Room Air 10/05/24 11:59 O2 Flow Rate 2 10/05/24 08:00 10/04/24 10/05/24 10/05/24 22:59 06:59 14:59 Intake Total 330 / 700 480 / 480 Output Total 2650 / 4050 1999 / 6050 Balance -2320 / -3350 -2000 / -5350 480 / 480 Weight last 48 hrs Weight 95.254 kg Physical Exam 2 Const: COMMON NORMALS: no acute distress and patient oriented x3 Resp: COMMON NORMALS: normal respiratory effort, No retractions, No use of accessory muscles and clear to auscultation bilaterally AUSCULTATION: clear to auscultation bilaterally Cardio: COMMON NORMALS: regular rate, regular rhythm, S1 normal heart sound present and S2 normal heart sound present RATE: regular rate RHYTHM: r egular rhythm HEART SOUNDS: S1 normal heart sound present and S2 normal heart sound present GI: COMMON NORMALS: Normal to inspection, nondistended, normoactive bowel sounds present and non-tender Extremity: COMMON NORMALS: no pedal edema Neuro: COMMON NORMALS: patient oriented x3 and moves all extremities Psych: COMMON NORMALS: mental status grossly normal Skin: OTHER: 1+ pitting edema Urinary Catheter Management: Marsh: Cath Placed During This Visit: yes Reason for Continuing Indwelling Catheter: Accurate Measurement of Urinary Output in Critically Ill Patients Urinary Catheter Date of Insertion: 10/02/24 Urinary Catheter Time of Insertion: 14:53 Data 10/05/24 04:44 10/05/24 04:44 Micro: Microbiology 10/04/24 15:30 Gram Stain - Final Peritoneal Fluid Body Fluid Culture - Preliminary 10/02/24 21:24 Urine Culture - Final Urine,Clean Catch A&P Assessment and plan (1) HFrEF (heart failure with reduced ejection fraction): (2) Nonischemic congestive cardiomyopathy: (3) PICC (peripherally inserted central catheter) in place: (4) Type 2 diabetes mellitus: (5) SAMANTHA (acute kidney injury): (6) Osteomyelitis of foot: (7) Venous stasis ulcers of both lower extremities: (8) Ulcer of left foot with fat layer exposed: (9) Acute exacerbation of CHF (congestive heart failure): (10) Renal mass: (11) Ascites: (12) Cirrhosis: Plan Acute systolic CHF exacerbation - With abdominal wall edema, anasarca, 2+ pitting edema, BNP 7839 -History of systolic CHF EF 10 to 15% - -15 L so far Plan - Fluid restrictions of 1000 cc - Bumex 1 mg once today, creatinine 1.3 - Marsh catheter in place - Monitor potassium, monitor creatinine - CONCLUSIONS LV systolic function is severely reduced with EF 15 to 20%. Grade 3 diastolic dysfunction. RV is moderately hypokinetic. Biatrial enlargement. Moderate mitral regurgitation. Mild to moderate aortic regurgitation. Mild tricuspid regurgitation. Pleural effusion seen IVC appears to be dilated Compared to prior echocardiogram from 06/2024, no significant changes are seen Systolic CHF EF 15 to 20% - Cardiology consulted Abdominal distention, ascites - Status post paracentesis -Cultures so far no growth, Gram stain many white blood cells, no organisms -Culture no growth - Will obtain cytology with paracentesis Concern for liver cirrhosis on CT scan - Potentially congestive hepatopathy from severe heart failure - Will need to follow-up with GI as outpatient Bilateral lower extremity swelling, venous ultrasound negative for DVT History of bilateral lower extremity wounds - Consult wound care - History of debridement Left foot abscess, second metatarsal osteomyelitis - Continue vancomycin - Continue meropenem Type 2 diabetes mellitus, low-dose sliding scale Patient has hematuria -Concerns for 4 4 cm renal mass, with peritoneal nodules, pelvic lymphadenopathy - CT/CT abdomen pelvis wo con [id number] IMPRESSION: 1. 4 cm solid-appearing right renal mass concerning for possible renal cell carcinoma. Indeterminate right renal cyst. Recommend contrast enhanced MRI exam of the kidneys for further evaluation. 2. Extensive anasarca of the soft tissues and moderate-large amount of ascites the main part be due to volume overload.. 3. Limited assessment of the urinary bladder with nonspecific bladder wall thickening that would be better evaluated with CT urography or MRI exam. 4. Scattered peritoneal nodules difficult to assess due to ascites but raises concern for peritoneal metastasis for which continued follow up advised. 5. Mild pelvic lymphadenopathy also nonspecific and needs follow up. 6. Liver contour suggestive of mild cirrhosis. 7. Mild splenomegaly with chronic granulomatous calcifications. 8. Additional chronic findings as above. Plan -Will need to follow-up with urology as outpatient -Will need to follow-up with oncology as outpatient Full code Lovenox for DVT prophylaxis will monitor closely Plan for today monitor blood pressure closely, hold off on further doses of Lasix, follow paracentesis studies, vancomycin trough 33.6, recheck vancomycin trough this afternoon, hold vancomycin for now, watch renal function PDMP PDMP Reviewed: Not Reviewed Attestations 2 Medical Necessity Statement*: Patient requires hospitalization for acute CHF exacerbation requiring IV diuresis, elevated vancomycin levels requiring monitoring Diagnoses HFrEF (heart failure with reduced ejection fraction) I50.20 Nonischemic congestive cardiomyopathy I42.0 PICC (peripherally inserted central catheter) in place Z45.2 Type 2 diabetes mellitus with diabetic peripheral angiopathy without gangrene, without long-term current use of insulin E11.51 Diabetes mellitus complication detail: with peripheral angiopathy without gangrene Diabetes mellitus complication status: with circulatory complication 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
[2024-10-05 16:21] LABS: Vancomycin Trough 18.5 ug/mL (10-15)
[2024-10-05] MEDS: enoxaparin 40 mg/0.4 mL Syringe SUBCUT (16:45)
[2024-10-05] MEDS: pantoprazole 40 mg SDV IVP (16:45)
[2024-10-05] MEDS: trazodone 50 mg Tablet PO (20:46)
[2024-10-06] VITALS (8 sets, daily range): BP systolic 105–141; BP diastolic 56–90; PULSE 64–82; RESP 15–24; TEMP 36.6–36.9; O2SAT 94–99; BMI 28.7
[2024-10-06] MEDS: meropenem 1,000 mg SDV 1000 MG IVP ×4 (00:11→23:35)
[2024-10-06 05:42] LABS: Basophils # 0.1 10^3/uL (0.0-0.1); Basophils % 0.8 %; Eosinophils # 0.9 10^3/uL (0.0-0.8); Eosinophils % 7.9 %; Hematocrit 35.1 % (37-53); Lymphocytes # 1.2 10^3/uL (0.8-4.8); Lymphocytes % 10.6 %; Mean Corpuscular HGB Conc 30.2 g/dL (30-55); Mean Corpuscular Hemoglobin 25.7 pg (27-33); Mean Corpuscular Volume 85.2 fl (82-101); Mean Platelet Volume 10.2 fL (7.4-10.4); Monocytes # 1.1 10^3/uL (0.2-0.9); Monocytes % 9.7 %; Neutrophils # 8.13 10^3/uL (1.8-7.7); Neutrophils % 70.5 %; Nucleated Red Blood Cells % 0 %; Platelet Count 305 10^3/cmm (157-399); Red Blood Count 4.12 10^6/uL (3.85-5.65); Red Cell Distribution Width 16.3 % (12.1-15.1); White Blood Count 11.53 10^3/uL (3.29-11.43)
[2024-10-06 05:59] LABS: Blood Urea Nitrogen 26 mg/dL (8-23); Calcium 8.8 mg/dL (8.5-10.5); Carbon Dioxide 28 mmol/L (22-29); Creatinine Clr Calc Pharmacy 73.5777; Glomerular Filtration Rate 67.2 mL/min (90-130); Glucose 95 mg/dL (65-115)
[2024-10-06 06:08] LABS: Vancomycin Random 15.3 ug/mL (20.0-40.0)
[2024-10-06 06:29] LABS: Chloride 98 mmol/L (98-107); Osmolality Calculated 289 mOsm/kg (285-295); Sodium 137 mmol/L (136-145)
[2024-10-06 06:32] LABS: Anion Gap 15.4 (5-19); Potassium 4.4 mmol/L (3.5-5.1)
[2024-10-06] MEDS: metoprolol succinate ER (24 HR) 50 mg Tablet PO (09:05)
[2024-10-06] MEDS: FUROsemide 40 mg Tablet PO (09:05)
[2024-10-06] MEDS: spironolactone 25 mg Tablet PO (09:05)
[2024-10-06] MEDS: potassium chloride ER 20 mEq Tablet PO (09:05)
[2024-10-06] MEDS: sacubitril/valsartan 24-26 mg Tablet 1 EACH PO ×2 (09:05→17:45)
[2024-10-06] MEDS: aspirin 81 mg EC Tablet PO (09:05)
[2024-10-06] MEDS: vancomycin 500 MG in sodium chloride 0.9% (plus) 100 ML 200 MG IV (09:57)
--- NOTE | 2024-10-06 15:16 | P.PN_ITS ---
Subjective 2 Subjective: Patient was seen this morning, currently alert oriented x 3, following all commands no fevers, chills, cough, nausea, vomiting, abdominal pain Vitals/I&O/Wt Last Vital Signs Temp 98.2 F 10/06/24 12:00 Pulse 71 10/06/24 12:00 Resp 24 H 10/06/24 12:00 BP 141/86 10/06/24 12:00 Pulse Ox 94 10/06/24 12:00 O2 Del Method Room Air 10/06/24 12:00 O2 Flow Rate 98 10/06/24 00:30 10/06/24 10/06/24 10/06/24 06:59 14:59 22:59 Intake Total 580 / 580 Output Total 400 / 2300 750 / 750 Balance -400 / -1220 -170 / -170 Weight last 48 hrs Weight 88.195 kg Weight 88.195 kg Physical Exam 2 Const: COMMON NORMALS: no acute distress and patient oriented x3 Resp: COMMON NORMALS: normal respiratory effort, No retractions, No use of accessory muscles and clear to auscultation bilaterally AUSCULTATION: clear to auscultation bilaterally Cardio: COMMON NORMALS: regular rate, regular rhythm, S1 normal heart sound present and S2 normal heart sound present RATE: regular rate RHYTHM: r egular rhythm HEART SOUNDS: S1 normal heart sound present and S2 normal heart sound present GI: COMMON NORMALS: Normal to inspection, nondistended, normoactive bowel sounds present and non-tender Extremity: COMMON NORMALS: no pedal edema Neuro: COMMON NORMALS: patient oriented x3 Psych: COMMON NORMALS: mental status grossly normal Urinary Catheter Management: Marsh: Cath Placed During This Visit: yes Reason for Continuing Indwelling Catheter: Accurate Measurement of Urinary Output in Critically Ill Patients Urinary Catheter Date of Insertion: 10/02/24 Urinary Catheter Time of Insertion: 14:53 Data 10/06/24 05:25 10/06/24 05:25 Micro: Microbiology 10/04/24 15:30 Gram Stain - Final Peritoneal Fluid Anaerobic Culture - Preliminary Body Fluid Culture - Preliminary 10/04/24 15:30 Mycobacterial Smear - Preliminary Body Fluids - Peritoneal A&P Assessment and plan (1) HFrEF (heart failure with reduced ejection fraction): (2) Nonischemic congestive cardiomyopathy: (3) PICC (peripherally inserted central catheter) in place: (4) Type 2 diabetes mellitus: (5) SAMANTHA (acute kidney injury): (6) Osteomyelitis of foot: (7) Venous stasis ulcers of both lower extremities: (8) Ulcer of left foot with fat layer exposed: (9) Acute exacerbation of CHF (congestive heart failure): (10) Renal mass: (11) Ascites: (12) Cirrhosis: Plan Acute systolic CHF exacerbation - With abdominal wall edema, anasarca, 2+ pitting edema, BNP 7839 -History of systolic CHF EF 10 to 15% - -15 L so far Plan - Fluid restrictions of 1000 cc - Bumex 1 mg once today, creatinine 1.3 - Marsh catheter in place - Monitor potassium, monitor creatinine - CONCLUSIONS LV systolic function is severely reduced with EF 15 to 20%. Grade 3 diastolic dysfunction. RV is moderately hypokinetic. Biatrial enlargement. Moderate mitral regurgitation. Mild to moderate aortic regurgitation. Mild tricuspid regurgitation. Pleural effusion seen IVC appears to be dilated Compared to prior echocardiogram from 06/2024, no significant changes are seen Systolic CHF EF 15 to 20% - Cardiology consulted Abdominal distention, ascites - Status post paracentesis -Cultures so far no growth, Gram stain many white blood cells, no organisms -Culture no growth - Will obtain cytology with paracentesis Concern for liver cirrhosis on CT scan - Potentially congestive hepatopathy from severe heart failure - Will need to follow-up with GI as outpatient Bilateral lower extremity swelling, venous ultrasound negative for DVT History of bilateral lower extremity wounds - Consult wound care - History of debridement Left foot abscess, second metatarsal osteomyelitis - Continue vancomycin - Continue meropenem Type 2 diabetes mellitus, low-dose sliding scale Patient has hematuria -Concerns for 4 4 cm renal mass, with peritoneal nodules, pelvic lymphadenopathy - CT/CT abdomen pelvis wo con [id number] IMPRESSION: 1. 4 cm solid-appearing right renal mass concerning for possible renal cell carcinoma. Indeterminate right renal cyst. Recommend contrast enhanced MRI exam of the kidneys for further evaluation. 2. Extensive anasarca of the soft tissues and moderate-large amount of ascites the main part be due to volume overload.. 3. Limited assessment of the urinary bladder with nonspecific bladder wall thickening that would be better evaluated with CT urography or MRI exam. 4. Scattered peritoneal nodules difficult to assess due to ascites but raises concern for peritoneal metastasis for which continued follow up advised. 5. Mild pelvic lymphadenopathy also nonspecific and needs follow up. 6. Liver contour suggestive of mild cirrhosis. 7. Mild splenomegaly with chronic granulomatous calcifications. 8. Additional chronic findings as above. Plan -Will need to follow-up with urology as outpatient -Will need to follow-up with oncology as outpatient Full code Lovenox for DVT prophylaxis will monitor closely Plan for today monitor blood pressures, continue diuresis PDMP PDMP Reviewed: Not Reviewed Attestations 2 Medical Necessity Statement*: Patient requires hospitalization for CHF exacerbation Diagnoses HFrEF (heart failure with reduced ejection fraction) I50.20 Nonischemic congestive cardiomyopathy I42.0 PICC (peripherally inserted central catheter) in place Z45.2 Type 2 diabetes mellitus with diabetic peripheral angiopathy without gangrene, without long-term current use of insulin E11.51 Diabetes mellitus complication detail: with peripheral angiopathy without gangrene Diabetes mellitus complication status: with circulatory complication 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
[2024-10-06] MEDS: enoxaparin 40 mg/0.4 mL Syringe SUBCUT (17:44)
[2024-10-06] MEDS: pantoprazole 40 mg SDV IVP (17:45)
[2024-10-06] MEDS: trazodone 50 mg Tablet PO (20:34)
[2024-10-07] VITALS: BP 112/69; PULSE 75; RESP 16; TEMP 36.9
[2024-10-07 02:48] LABS: Basophils # 0.1 10^3/uL (0.0-0.1); Basophils % 0.8 %; Eosinophils # 0.8 10^3/uL (0.0-0.8); Eosinophils % 7.3 %; Hematocrit 33.1 % (37-53); Lymphocytes # 1.3 10^3/uL (0.8-4.8); Lymphocytes % 12.1 %; Mean Corpuscular HGB Conc 31.1 g/dL (30-55); Mean Corpuscular Hemoglobin 25.3 pg (27-33); Mean Corpuscular Volume 81.3 fl (82-101); Mean Platelet Volume 9.5 fL (7.4-10.4); Monocytes # 1.1 10^3/uL (0.2-0.9); Monocytes % 10.1 %; Neutrophils # 7.37 10^3/uL (1.8-7.7); Neutrophils % 69.4 %; Nucleated Red Blood Cells % 0 %; Platelet Count 264 10^3/cmm (157-399); Red Blood Count 4.07 10^6/uL (3.85-5.65); White Blood Count 10.62 10^3/uL (3.29-11.43)
[2024-10-07 03:16] LABS: Blood Urea Nitrogen 26 mg/dL (8-23); Calcium 9.1 mg/dL (8.5-10.5); Carbon Dioxide 31 mmol/L (22-29); Chloride 98 mmol/L (98-107); Creatinine Clr Calc Pharmacy 67.4462; Glomerular Filtration Rate 60.8 mL/min (90-130); Glucose 101 mg/dL (65-115); Osmolality Calculated 293 mOsm/kg (285-295); Sodium 139 mmol/L (136-145)
[2024-10-07 03:17] LABS: Vancomycin Random 13.8 ug/mL (20.0-40.0)
[2024-10-07 03:42] LABS: Anion Gap 14.5 (5-19); Potassium 4.5 mmol/L (3.5-5.1)
[2024-10-07 04:00] VITALS: BP 90/64; PULSE 80; RESP 16; TEMP 36.8
--- NOTE | 2024-10-07 07:56 | PC.SOCIAL ---
IMM Update Pg. 2 of IMM updated and copy provided at bedside.
[2024-10-07 08:00] VITALS: BP 119/64; PULSE 78; RESP 18; TEMP 36.9; O2SAT 96
--- NOTE | 2024-10-07 08:31 | PM.DCS ---
Discharge Providers Date of Admission: 10/02/24 16:08 Date of Discharge: October 07, 2024 Attending Provider at Admission: Ashish Ortiz MD Attending Provider at Discharge: Ashish Ortiz MD Primary Care Provider: Itz Pierson MD Diagnoses at Discharge Discharge Diagnosis (1) HFrEF (heart failure with reduced ejection fraction): Status: Chronic (2) Nonischemic congestive cardiomyopathy: Status: Acute (3) PICC (peripherally inserted central catheter) in place: Status: Acute (4) Type 2 diabetes mellitus: Status: Chronic Qualifiers: Diabetes mellitus complication detail: with peripheral angiopathy without gangrene Diabetes mellitus complication status: with circulatory complication Diabetes mellitus residential insulin use: without residential use Qualified Code(s): E11.51 - Type 2 diabetes mellitus with diabetic peripheral angiopathy without gangrene (5) SAMANTHA (acute kidney injury): Status: Acute (6) Osteomyelitis of foot: Status: Acute Qualifiers: Laterality: left Osteomyelitis type: subacute Qualified Code(s): M86.272 - Subacute osteomyelitis, left ankle and foot (7) Venous stasis ulcers of both lower extremities: Status: Acute (8) Ulcer of left foot with fat layer exposed: Status: Acute (9) Acute exacerbation of CHF (congestive heart failure): Status: Inactive Qualifiers: Heart failure type: systolic Qualified Code(s): I50.23 - Acute on chronic systolic (congestive) heart failure (10) Renal mass: Status: Acute (11) Ascites: Status: Acute (12) Cirrhosis: Status: Acute Reason for Visit Reason for Visit: Abd Distention Hospital Course Hospital Course Ely Hare is a 64 year old male hypertension, hyperlipidemia, rheumatoid arthritis of, obstructive sleep apnea, cardiomyopathy with EF of 15%, history of bilateral lower extremity venous ulcer debridement, recent history of left foot second metatarsal amputation currently on IV vancomycin, meropenem, history of pacemaker placement, with plans in the near future for conversion to AICD, history of bilateral lower extremity wounds to mesh by wound care, who presents [facility] due to shortness of breath, lower extremity edema, orthopnea, paroxysmal nocturnal dyspnea. Patient tells me that he was at [facility], he is currently at [facility], he has been experiencing increased shortness of breath, increased lower extremity edema, no fevers, chills, no cough no hemoptysis, has orthopnea, paroxysmal nocturnal dyspnea, has anasarca, increased abdominal distention Patient had a prolonged hospitalization please look at my last progress notes for detail Patient was admitted to [facility] for acute systolic CHF exacerbation, patient received IV diuresis during his hospitalization, he was diuresed over 17 L negative, overall clinically improved, on room air. Patient will be discharged on Lasix therapy with potassium replacement therapy, with instructions to limit fluid intake to 1 L a day For his history of ascites, abdominal distention status post paracentesis, so far cultures negative Concern for liver cirrhosis, likely congestive hepatopathy nonetheless follow-up with GI as outpatient Patient was found to have hematuria, CT scan shows findings concerning for 4.4 cm renal mass with peritoneal lymph nodes, pelvic lymphadenopathy - I have referred him to urology in [place] - Follow-up with Dr. Taylor -Paracentesis pathology is pending Left foot abscess, second metatarsal osteomyelitis - Continue vancomycin, last date 10/09/2024, dose adjusted to vancomycin 1 g IV every 24 hours, recheck vancomycin trough on Monday before last dose - Continue meropenem, last date 10/10/2024 - Surgical site looks clean and dry on examination, good DP PT pulses Bilateral extremity wounds, received inpatient wound care, follow-up with wound care as outpatient For his systolic CHF, he will follow-up with cardiology as outpatient, there has been plans on AICD conversion, once patient's infection is cleared, follow-up with cardiology for follow-up - Patient has a LifeVest at home - Patient refuses to wear LifeVest, understands morbidity and mortality, voices understanding, all questions answered Physical Exam Const: COMMON NORMALS: no acute distress and patient oriented x3 Resp: COMMON NORMALS: normal respiratory effort, No retractions, No use of accessory muscles and clear to auscultation bilaterally AUSCULTATION: clear to auscultation bilaterally Cardio: COMMON NORMALS: regular rate, regular rhythm, S1 normal heart sound present and S2 normal heart sound present RATE: regular rate RHYTHM: regular rhythm HEART SOUNDS: S1 normal heart sound present and S2 normal heart sound present GI: COMMON NORMALS: Normal to inspection, nondistended, normoactive bowel sounds present and non-tender Extremity: COMMON NORMALS: no pedal edema Neuro: COMMON NORMALS: patient oriented x3 Psych: COMMON NORMALS: mental status grossly normal Urinary Catheter Management: Marsh: Cath Placed During This Visit: yes Reason for Continuing Indwelling Catheter: Accurate Measurement of Urinary Output in Critically Ill Patients Urinary Catheter Date of Insertion: 10/02/24 Urinary Catheter Time of Insertion: 14:53 Discharge Data Studies Completed and Pending Completed Studies During Hospitalization Category Date Time Status CT abdomen pelvis wo con [id number] Routine Cat Scan 10/03/24 10:43 Completed XR chest 1V portable [id number] Stat Exams 10/02/24 12:37 [place] [id number] Stat Ultrasound 10/02/24 15:31 Completed CV. echo complete* [id number] Stat Ultrasound 10/02/24 15:31 Completed US renal BI* [id number] Routine Ultrasound 10/03/24 07:52 Completed Pending at discharge Category Date Time Status Amylase, Peritoneal Fluid Routine Lab 10/03/24 15:30 Received Anaerobic Culture Routine Lab 10/03/24 15:30 Results Basic Metabolic Panel AM LABS Lab 10/08/24 04:00 Ordered Body Fluid Culture & GS Routine Lab 10/03/24 15:30 Results Complete Blood Count w/Auto AM LABS Lab 10/08/24 04:00 Ordered Mycobacteria, Culture w/Fluor Routine Lab 10/03/24 15:30 Results Cytology [PTH] Routine Pth 10/03/24 15:42 Re[place]acentesis abd w [id number] Routine Ultrasound 10/04/24 15:42 Taken Radiology Impressions Chest X-Ray 10/02/24 12:37 IMPRESSION: No acute findings. Venous Duplex 10/02/24 15:31 IMPRESSION: No evidence of deep vein thrombosis. Renal Ultrasound 10/03/24 07:52 IMPRESSION: 1. 4 cm circumscribed right renal mass and 2.2 cm indeterminate right renal cyst. Recommend nonemergent MRI examination of the kidneys or CT urography for further evaluation. 2. Limited assessment of the urinary bladder that appears abnormally thickened with questionable intraluminal bladder mass that needs further evaluation and could also be further assessed on CT urography. 3. Extensive ascites throughout the abdomen and pelvis. Abdomen/Pelvis CT 10/03/24 10:43 IMPRESSION: 1. 4 cm solid-appearing right renal mass concerning for possible renal cell carcinoma. Indeterminate right renal cyst. Recommend contrast enhanced MRI exam of the kidneys for further evaluation. 2. Extensive anasarca of the soft tissues and moderate-large amount of ascites the main part be due to volume overload.. 3. Limited assessment of the urinary bladder with nonspecific bladder wall thickening that would be better evaluated with CT urography or MRI exam. 4. Scattered peritoneal nodules difficult to assess due to ascites but raises concern for peritoneal metastasis for which continued follow up advised. 5. Mild pelvic lymphadenopathy also nonspecific and needs follow up. 6. Liver contour suggestive of mild cirrhosis. 7. Mild splenomegaly with chronic granulomatous calcifications. 8. Additional chronic findings as above. Laboratory Results WBC 10.62 10^3/uL (3.29-11.43) 10/07/24 02:20 RBC 4.07 10^6/uL (3.85-5.65) 10/07/24 02:20 Hgb 10.30 g/dL (11.27-16.99) L 10/07/24 02:20 Hct 33.1 % (37-53) L 10/07/24 02:20 MCV 81.3 fl (82-101) L 10/07/24 02:20 MCH 25.3 pg (27-33) L 10/07/24 02:20 MCHC 31.1 g/dL (30-55) 10/07/24 02:20 RDW 16.0 % (12.1-15.1) H 10/07/24 02:20 Plt Count 264 10^3/cmm (157-399) 10/07/24 02:20 MPV 9.5 fL (7.4-10.4) 10/07/24 02:20 Neut % (Auto) 69.4 % 10/07/24 02:20 Lymph % (Auto) 12.1 % 10/07/24 02:20 [place] % (Auto) 10.1 % 10/07/24 02:20 Eos % (Auto) 7.3 % 10/07/24 02:20 Baso % (Auto) 0.8 % 10/07/24 02:20 Neut # (Auto) 7.37 10^3/uL (1.8-7.7) 10/07/24 02:20 Lymph # (Auto) 1.3 10^3/uL (0.8-4.8) 10/07/24 02:20 [place] # (Auto) 1.1 10^3/uL (0.2-0.9) H 10/07/24 02:20 Eos # (Auto) 0.8 10^3/uL (0.0-0.8) 10/07/24 02:20 Baso # (Auto) 0.1 10^3/uL (0.0-0.1) 10/07/24 02:20 Nucleated RBC % (auto) 0 % 10/07/24 02:20 Nucleated RBCs # 0.0 /100WBC 10/07/24 02:20 Differential Comment Yes 10/04/24 15:30 PT 17.40 SECONDS (12.1-14.9) H 10/04/24 02:44 INR 1.33 (0.8-1.2) H 10/04/24 02:44 APTT 39.0 SECONDS (23.9-36.7) H 10/04/24 02:44 Sodium 139 mmol/L (136-145) 10/07/24 02:20 Potassium 4.5 mmol/L (3.5-5.1) 10/07/24 02:20 Chloride 98 mmol/L (98-107) 10/07/24 02:20 Carbon Dioxide 31 mmol/L (22-29) H 10/07/24 02:20 Anion Gap 14.5 (5-19) 10/07/24 02:20 BUN 26 mg/dL (8-23) H 10/07/24 02:20 Creatinine 1.2 mg/dL (0.7-1.2) 10/07/24 02:20 GFR Calculation 60.8 mL/min (90-130) L 10/07/24 02:20 Glucose 101 mg/dL (65-115) 10/07/24 02:20 POC Glucose 112 mg/dL (70-110) H 10/02/24 16:29 Calculated Osmolality 293 mOsm/kg (285-295) 10/07/24 02:20 Calcium 9.1 mg/dL (8.5-10.5) 10/07/24 02:20 Total Bilirubin 1.4 mg/dL (0.15-1.2) H 10/02/24 12:50 AST 17 U/L (0-40) 10/02/24 12:50 ALT 13 U/L (0-41) 10/02/24 12:50 Alkaline Phosphatase 166 U/L (40-130) H 10/02/24 12:50 NT-Pro-B Natriuret Pep 3570 pg/mL (0-125) H 10/05/24 04:44 Total Protein 6.7 g/dL (6.6-8.7) 10/02/24 12:50 Albumin 3.6 g/dL (3.5-5.2) 10/02/24 12:50 Globulin 3.1 g/dL (1.3-4.6) 10/02/24 12:50 Lipase 20 U/L (13-60) 10/02/24 12:50 TSH 4.03 uIU/mL (0.27-4.20) 10/02/24 12:50 Urine Color Yellow (Yellow) 10/02/24 21: Urine Appearance Slightly cloudy (CLEAR) 10/02/24 21: Urine pH 5.0 (5-7) 10/02/24 21:24 Ur Specific [place] 1.009 (1.005-1.030) 10/02/24 21:24 Urine Protein 1+ (Negative) A 10/02/24 21:24 Urine Glucose (UA) Trace (Normal) H 10/02/24 21:24 Urine Ketones Negative (Negative) 10/02/24 21:24 Urine Blood 3+ (Negative) A 10/02/24 21:24 Urine Nitrate Negative (Negative) 10/02/24 21: Urine Bilirubin Negative (Negative) 10/02/24 21:24 Urine Urobilinogen 0.2 mg/dL (Negative) 10/02/24 21:24 Ur Leukocyte Esterase 1+ (Negative) A 10/02/24 21:24 Urine RBC >100 /hpf (0-2) H 10/02/24 21:24 Urine WBC 21-50 /hpf (0-5) H 10/02/24 21:24 Ur Squamous Epith Cells 0-5 /hpf (0-5) 10/02/24 21:24 Amorphous Sediment Not Reportable 10/02/24 21:24 Urine Bacteria None seen /hpf (NONE) 10/02/24 21:24 Hyaline Casts 2.05 /lpf 10/02/24 21:24 Fluid Color Yellow 10/04/24 15:30 Fluid Appearance Cloudy 10/04/24 15:30 Fluid Specific Grav 1.025 10/04/24 15:30 Fluid pH 7.0 10/04/24 15:30 Fluid WBC 568 /uL 10/04/24 15:30 Fluid RBC 1.000 10^3/uL 10/04/24 15:30 Fld Polynuclear WBCs # 0.072 10/04/24 15:30 Fld Polynuclear WBCs % 12.700 % 10/04/24 15:30 Fl Mononucl WBCs #(Auto) 0.496 10/04/24 15:30 Fl Mononuclear % Auto 87.300 % 10/04/24 15:30 Fld Crystal Laterality Not Reportable 10/04/24 15:30 Fluid Glucose 125.0 mg/dL 10/04/24 15:30 Fluid Total Protein 3.6 g/dL 10/04/24 15:30 Fluid Albumin 2.3 g/dL 10/04/24 15:30 Fluid LDH 100 U/L 10/04/24 15:30 Fluid Alk Phosphatase 68 IU/L 10/04/24 15:30 Fluid Cholesterol 48 mg/dL (0-200) 10/04/24 15:30 Fluid Triglycerides 22 mg/dL (0-150) 10/04/24 15:30 Fluid Uric Acid 11 mg/dL 10/04/24 15:30 Pleural Amylase Cancelled 10/04/24 15:30 Vancomycin Trough 18.5 ug/mL (10-15) H 10/05/24 15:57 Random Vancomycin 13.8 ug/mL (20.0-40.0) L 10/07/24 02:20 Vitals Last Vital Signs Temp 98.4 F 10/07/24 08:00 Pulse 78 10/07/24 08:00 Resp 18 10/07/24 08:00 BP 119/64 10/07/24 08:00 Pulse Ox 96 10/07/24 08:00 O2 Del Method Room Air 10/07/24 08:00 O2 Flow Rate 98 10/06/24 00:30 Discharge Plan Discharge Patient Disposition: Xfer SNF Condition: Stable Prescriptions: New furosemide 40 mg Tablet 40 mg PO DAILY@0800 30 Days Qty: 30 0RF potassium chloride [Klor-Con M20] 20 mEq Tablet,Er Particles/Crystals 20 meq PO DAILY 30 Days Qty: 30 0RF Entresto 24-26 mg Tablet 1 tab PO BID 30 Days Qty: 60 0RF Continued metoprolol succinate 50 mg tablet extended release 24 hr 50 mg PO DAILY meropenem 1 gram recon soln 1 g IV Q8H omeprazole 20 mg capsule,delayed release(DR/EC) 20 mg PO DAILY acetaminophen 325 mg capsule 650 mg PO Q6H PRN (Reason: pain or fever) Jardiance 10 mg tablet 10 mg PO DAILY Thera-M 19 mg iron- 400 mcg tablet 1 tab PO DAILY aspirin 81 mg Tablet,Delayed Release (Dr/Ec) 81 mg PO DAILY Qty: 30 0RF spironolactone 25 mg Tablet 25 mg PO DAILY Qty: 30 0RF bacitracin 500 unit/gram ointment 1 applic TOPICAL DAILY Rx Instructions: apply to affected areas for wound healing sacubitril-valsartan 49-51 mg Tablet 1 tab PO BID Changed vancomycin-diluent combo no.1 1 gram/200 mL piggyback 1,000 mg IV Q24H Qty: 100 0RF Discontinued bumetanide 0.5 mg tablet 0.5 mg PO DAILY Discharge Orders: Discharge Order (Routine); Ordered 10/07/24 Ordered By: Ashish Ortiz Referrals: [facility] [Outside] Joni Mcdermott FNP [Nurse Practitioner, Wound Care] - 10/11/24 9:15 am Referral Note: will see Annalise Sawyer MD [Hospitalist, Oncology] - 1 week Referral Note: We have notified your physician's clinic of the need for a follow-up appointment to be scheduled. If you have not heard from them within the next 2 business days, please call them directly. Junaid Mahoney MD [Referring, Urology] - 7-10 days Referral Note: renal cell carcinoma Gary Archer DO [Physician, Internal Medicine] Discharge Activity: Resume usual activity Patient Instructions: Furosemide (By mouth) (Lasix), Potassium Chloride (By mouth), Sacubitril/Valsartan (By mouth) (Entresto, Entresto Sprinkle), Heart Failure (DC), Acute Kidney Injury (DC), CHF Stoplight, Opioid Safety Activity Restrictions/Additional Instructions: - Please take Lasix 40 mg daily, with potassium replacement therapy -Limit fluids 1000 cc a day - Please follow-up with primary care - Follow-up with cardiology -Please follow-up with wound care - Please follow-up with oncology - Please follow-up with urology -Vancomycin 1 g IV every 24 hours - Recheck vancomycin trough before Monday's dose Discharge Attestations Time Spent in Discharge Care*: greater than 30 min Status at Discharge: Cognitive status at discharge: cognitively intact, Behavioral status at discharge: cooperative, Quality Metrics Clinical Quality Measures [ No reported AMI, CVA or VTE this stay] Coding Level of Care Code 73395 Total time (in minutes) for Discharge: 45 Diagnoses HFrEF (heart failure with reduced ejection fraction) I50.20 Nonischemic congestive cardiomyopathy I42.0 PICC (peripherally inserted central catheter) in place Z45.2 Type 2 diabetes mellitus with diabetic peripheral angiopathy without gangrene, without long-term current use of insulin E11.51 Diabetes mellitus complication detail: with peripheral angiopathy without gangrene Diabetes mellitus complication status: with circulatory complication Diabetes mellitus buttermaker continuous churn insulin use: without buttermaker continuous churn use SAMANTHA (acute kidney injury) N17.9 Subacute osteomyelitis of left foot M86.272 Laterality: left Osteomyelitis type: subacute Venous stasis ulcers of both lower extremities I83.019; I83.029; L97.919; L97.929 Ulcer of left foot with fat layer exposed L97.522 Acute on chronic systolic congestive heart failure I50.23 Heart failure type: systolic Renal mass N28.89 Ascites R18.8 Cirrhosis K74.60
[2024-10-07] MEDS: spironolactone 25 mg Tablet PO (08:48)
[2024-10-07] MEDS: meropenem 1,000 mg SDV 1000 MG IVP (08:48)
[2024-10-07] MEDS: sacubitril/valsartan 24-26 mg Tablet 1 EACH PO (08:48)
[2024-10-07] MEDS: aspirin 81 mg EC Tablet PO (08:48)
[2024-10-07] MEDS: metoprolol succinate ER (24 HR) 50 mg Tablet PO (08:48)
[2024-10-07] MEDS: potassium chloride ER 20 mEq Tablet PO (08:48)
[2024-10-07] MEDS: FUROsemide 40 mg Tablet PO (08:48)
--- NOTE | 2024-10-07 09:21 | PC.NURSE ---
Provider is updated on stop date of 10/10/2024 for vancomycin and 10/09/2024 for meropenem.
[2024-10-07] MEDS: VANCOMYCIN ADD-Vantage 1,000 MG in 0.9% NaCl ADD-Vantage 250 ML 250 MG IV (09:31)
[2024-10-07 10:19] LABS: SARS Covid-2 Antigen Negative (Negative)
--- NOTE | 2024-10-07 11:44 | PC.NURSE ---
New patient referral paperwork has been sent to [facility] urology to arrange for appointment. Voicemail left.
[2024-10-07 12:00] VITALS: BP 138/88; PULSE 74; RESP 20; TEMP 36.7; O2SAT 97
--- NOTE | 2024-10-07 12:53 | PC.NURSE ---
Report is called to CLAUDIO Marquez at [facility] at [phone]. [facility] will provider transportation.
--- NOTE | 2024-10-07 13:13 | P.PN_ITS ---
<Statement entered by Jose Antonio Head M.D - 10/09/24 09:39> Patient was cared for in conjunction with an advanced practice practitioner.? I reviewed the chart and all pertinent data including imaging, telemetry, and laboratory results.? I discussed the patient in detail with the advanced practice practitioner.? Please see? their note for progress note, testing results and agreed upon plan of care for the patient. Subjective 2 Subjective: Patient doing well today. Overall appears euvolemic. Creatinine is stable at 1.2. He is -1250 L over 24 hours. Vital signs stable. EF is 15 to 20%. Patient has LifeVest at home but previously reported he did not want to wear it but is planning on going back to the LT[facility]. He denies any chest pain or shortness of breath Vitals/I&O/Wt Last Vital Signs Temp 98.1 F 10/07/24 12:00 Pulse 74 10/07/24 12:00 Resp 20 H 10/07/24 12:00 BP 138/88 10/07/24 12:00 Pulse Ox 97 10/07/24 12:00 O2 Del Method Room Air 10/07/24 12:00 O2 Flow Rate 98 10/06/24 00:30 10/06/24 10/07/24 10/07/24 22:59 06:59 14:59 Intake Total 460 / 1040 490 / 490 Output Total 650 / 1400 650 / 2050 Balance -190 / -360 -650 / -1010 490 / 490 Weight last 48 hrs Weight 193 lb 14.4 oz Weight 194 lb 7 oz Physical Exam 2 Narrative: General: No apparent distress, healthy appearing, well nourished HENMT: normoceophalic Muskuloskeletal: Full ROM Respiratory: Normal respiratory effort, clear to auscultation bilaterally throughout all lung brasher, no use of accessory muscles Cardio: No JVD, regular rate, regular rhythm, S1 S2 normal, no murmurs, peripheral pulses 2+ radial palpated bilaterally GI: Normal to inspection, nondistended Extremities: Full ROM, normal, normal capillary refill, no cyanosis, unable to assess edema due to patient's legs are wrapped Neuro: Alert and oriented x4, no focal motor deficits Psych: Affect normal, denies suicidal ideation, mental status grossly normal Skin: bilateral lower extremities wrapped Urinary Catheter Management: Marsh: Cath Placed During This Visit: yes, but has since been removed by the nurse Reason for Continuing Indwelling Catheter: Accurate Measurement of Urinary Output in Critically Ill Patients Urinary Catheter Date of Insertion: 10/02/24 Urinary Catheter Time of Insertion: 14:53 Date Urinary Catheter Removed: 10/07/24 Time Urinary Catheter Discontinued: 09:41 Data 10/07/24 02:20 10/07/24 02:20 Micro: Microbiology 10/04/24 15:30 Gram Stain - Final Peritoneal Fluid Anaerobic Culture - Preliminary Body Fluid Culture - Final A&P Assessment and plan (1) Nonischemic congestive cardiomyopathy: (2) S/P placement of cardiac pacemaker: (3) HFrEF (heart failure with reduced ejection fraction): (4) Type 2 diabetes mellitus: (5) Chronic kidney disease: (6) Venous stasis ulcers of both lower extremities: Plan Patient is doing well with no complaints. He has diuresed well. Creatinine is stable. Recommend continue aspirin and metoprolol as well as spironolactone and Lasix. From cardiology standpoint may be discharged. Patient to follow-up after discharge from LTAC. PDMP PDMP Reviewed: Not Reviewed Attestations 2 Medical Necessity Statement*: Defer to primary. Coding Level of Care Code Acute Code for [facility] Fwd Diagnoses Nonischemic congestive cardiomyopathy I42.0 S/P placement of cardiac pacemaker Z95.0 HFrEF (heart failure with reduced ejection fraction) I50.20 Type 2 diabetes mellitus with diabetic peripheral angiopathy without gangrene, without long-term current use of insulin E11.51 Diabetes mellitus complication detail: with peripheral angiopathy without gangrene Diabetes mellitus complication status: with circulatory complication Diabetes mellitus group home insulin use: without terminologist use Stage 3a chronic kidney disease N18.31 Chronic kidney disease stage: stage 3 (moderate) Chronic kidney disease stage 3 subtype: stage 3a (GFR 45-59) Venous stasis ulcers of both lower extremities I83.019; I83.029; L97.919; L97.925
== END 2024-10-07 13:56 | disposition skilled nursing facility (03) | DRG 291 ==
LOC: ER 16:01 → CSU 16:09
PROVIDERS: Admitting Provider Family Medicine; Emergency Provider Emergency Medicine; PCP Family Medicine; Visit Provider Family Medicine
DX: I13.0 Hypertensive heart and chronic kidney disease with heart failure and stage 1 through stage 4 chronic kidney disease, or unspecified chronic kidney disease (principal); I50.23 Acute on chronic systolic (congestive) heart failure; N17.9 Acute kidney failure, unspecified; M86.8X7 Other osteomyelitis, ankle and foot; L97.922 Non-pressure chronic ulcer of unspecified part of left lower leg with fat layer exposed; R18.8 Other ascites; E11.22 Type 2 diabetes mellitus with diabetic chronic kidney disease; N18.9 Chronic kidney disease, unspecified; Z79.84 Long term (current) use of oral hypoglycemic drugs; I42.8 Other cardiomyopathies; E11.51 Type 2 diabetes mellitus with diabetic peripheral angiopathy without gangrene; E11.69 Type 2 diabetes mellitus with other specified complication; I87.8 Other specified disorders of veins; N28.89 Other specified disorders of kidney and ureter; K74.60 Unspecified cirrhosis of liver; E78.5 Hyperlipidemia, unspecified; R31.9 Hematuria, unspecified; Z95.828 Presence of other vascular implants and grafts; Z95.0 Presence of cardiac pacemaker; Z79.82 Long term (current) use of aspirin; Z89.422 Acquired absence of other left toe(s)
CPT/HCPCS: 36415; 36416; 36592; 49083; 51702; 71045; 74176; 76770; 80048; 80053; 80202; 80503; 81001; 82042; 82150; 82465; 82945; 82962; 83615; 83690; 83880; 83986; 84075; 84157; 84315; 84443; 84478; 84560; 85025; 85610; 85730; 87015; 87070; 87075; 87086; 87116; 87205; 87206; 87426; 87801; 88112; 88305; 89050; 93005; 93306; 93970; 96372; 96374; 96376; 97116; 97161; 97165; 99285; J1650; J2185; J2470; J3370; J3372; J3490; J7050; J9999

== ENCOUNTER → 2024-10-11 09:05 | Outpatient (BNVA) | payer MEDICARE, SELFPAY | PROVIDERS: PCP Family Medicine; Visit Provider Thoracic Surgery (Cardiothoracic Vascular Surgery) | DX: I96 Gangrene, not elsewhere classified (principal); I87.2 Venous insufficiency (chronic) (peripheral); L97.812 Non-pressure chronic ulcer of other part of right lower leg with fat layer exposed; L97.821 Non-pressure chronic ulcer of other part of left lower leg limited to breakdown of skin; L97.521 Non-pressure chronic ulcer of other part of left foot limited to breakdown of skin | CPT/HCPCS: 11042; 97597 ==

== ENCOUNTER 2024-10-17 08:37 | Oncology outpatient (recurring) (ONCR) | payer MEDICARE, SELFPAY ==
[2024-10-17 10:40] LABS: Basophils # 0.1 10^3/uL (0.0-0.1); Eosinophils # 0.5 10^3/uL (0.0-0.8); Eosinophils % 4.5 %; Hematocrit 33.7 % (37-53); Lymphocytes % 8.3 %; Mean Corpuscular HGB Conc 30.9 g/dL (30-55); Mean Corpuscular Hemoglobin 25.4 pg (27-33); Mean Corpuscular Volume 82.2 fl (82-101); Monocytes # 0.9 10^3/uL (0.2-0.9); Monocytes % 7.9 %; Neutrophils # 8.98 10^3/uL (1.8-7.7); Nucleated Red Blood Cells % 0 %; Platelet Count 312 10^3/cmm (157-399); Red Cell Distribution Width 17.2 % (12.1-15.1); White Blood Count 11.51 10^3/uL (3.29-11.43)
[2024-10-17 10:41] LABS: Reticulocyte % 1.5 % (0.5-2.0)
[2024-10-17 10:51] LABS: INR 1.18 (0.8-1.2)
[2024-10-17 10:52] LABS: Partial Thromboplastin Time 34.3 SECONDS (23.9-36.7)
[2024-10-17 14:57] LABS: Folate Level 19.5 ng/mL (4.5-32.2)
[2024-10-17 15:12] LABS: Alanine Aminotransferase 12 U/L (0-41); Albumin Level 3.7 g/dL (3.5-5.2); Alkaline Phosphatase 121 U/L (40-130); Anion Gap 14.8 (5-19); Aspartate Amino Transferase 18 U/L (0-40); Blood Urea Nitrogen 21 mg/dL (8-23); Calcium 9.1 mg/dL (8.5-10.5); Carbon Dioxide 24 mmol/L (22-29); Chloride 106 mmol/L (98-107); Creatinine Clr Calc Pharmacy 57.7521; Ferritin 53 ng/mL (30-400); Glomerular Filtration Rate 50.9 mL/min (90-130); Glucose 114 mg/dL (65-115); Iron 28 ug/dL (59-158); Lactate Dehydrogenase 190 U/L (135-225); Osmolality Calculated 296 mOsm/kg (285-295); Percent Saturation 10.1 % (20-50); Potassium 3.8 mmol/L (3.5-5.1); Sodium 141 mmol/L (136-145); Total Bilirubin 1.2 mg/dL (0.15-1.2); Total Iron Binding Capacity 276 mcg/dl; Total Protein 6.7 g/dL (6.6-8.7); Unsaturated Iron Binding 248 ug/dL (112-347); Vitamin B12 535 pg/mL (232-1245)
[2024-10-17 16:46] LABS: Tumor Marker Alpha Fetoprotein 1.8 ng/mL (0-8.3)
== END 2024-10-17 23:59 | disposition home or self-care (01) ==
PROVIDERS: Internal Medicine; PCP Family Medicine; Visit Provider Student in an Organized Health Care Education/Training Program
DX: N28.89 Other specified disorders of kidney and ureter (principal); K74.60 Unspecified cirrhosis of liver; E11.9 Type 2 diabetes mellitus without complications; I42.9 Cardiomyopathy, unspecified; I50.20 Unspecified systolic (congestive) heart failure; I11.0 Hypertensive heart disease with heart failure; E78.5 Hyperlipidemia, unspecified; M06.9 Rheumatoid arthritis, unspecified; G47.33 Obstructive sleep apnea (adult) (pediatric); I83.018 Varicose veins of right lower extremity with ulcer other part of lower leg; I83.028 Varicose veins of left lower extremity with ulcer other part of lower leg; D64.9 Anemia, unspecified; Z95.0 Presence of cardiac pacemaker; N42.9 Disorder of prostate, unspecified
CPT/HCPCS: 36415; 36592; 80053; 82105; 82607; 82728; 82746; 83010; 83540; 83550; 83615; 84153; 85025; 85045; 85610; 85730; 99204

== ENCOUNTER 2024-10-18 09:30 | Oncology outpatient (recurring) (ONCR) | payer MEDICARE, MEDICAID, SELFPAY | END 2024-11-04 23:59 | disposition home or self-care (01) | LOC: ONCMED 10-23 07:28 | PROVIDERS: PCP Family Medicine; Visit Provider Student in an Organized Health Care Education/Training Program | DX: L97.522 Non-pressure chronic ulcer of other part of left foot with fat layer exposed (principal); L97.812 Non-pressure chronic ulcer of other part of right lower leg with fat layer exposed; L97.821 Non-pressure chronic ulcer of other part of left lower leg limited to breakdown of skin | CPT/HCPCS: 11042; 97597; A6252 ==

== ENCOUNTER → 2024-10-25 09:06 | Outpatient (BNVA) | payer MEDICARE, MEDICAID, SELFPAY | PROVIDERS: PCP Family Medicine; Visit Provider Thoracic Surgery (Cardiothoracic Vascular Surgery) | DX: I96 Gangrene, not elsewhere classified (principal); I87.2 Venous insufficiency (chronic) (peripheral); L97.522 Non-pressure chronic ulcer of other part of left foot with fat layer exposed; L97.811 Non-pressure chronic ulcer of other part of right lower leg limited to breakdown of skin; L97.821 Non-pressure chronic ulcer of other part of left lower leg limited to breakdown of skin | CPT/HCPCS: 11042; 97597; A6253 ==

== ENCOUNTER → 2024-11-01 09:14 | Outpatient (BNVA) | payer MEDICARE, MEDICAID, SELFPAY | PROVIDERS: PCP Family Medicine; Visit Provider Thoracic Surgery (Cardiothoracic Vascular Surgery) | DX: E11.52 Type 2 diabetes mellitus with diabetic peripheral angiopathy with gangrene (principal); E11.622 Type 2 diabetes mellitus with other skin ulcer; L97.811 Non-pressure chronic ulcer of other part of right lower leg limited to breakdown of skin; L97.821 Non-pressure chronic ulcer of other part of left lower leg limited to breakdown of skin; E11.621 Type 2 diabetes mellitus with foot ulcer; L97.521 Non-pressure chronic ulcer of other part of left foot limited to breakdown of skin | CPT/HCPCS: 97597; A6210; A6253 ==

== ENCOUNTER → 2024-11-07 09:01 | Outpatient (BNVA) | payer MEDICARE, MEDICAID, SELFPAY | PROVIDERS: PCP Family Medicine; Visit Provider Thoracic Surgery (Cardiothoracic Vascular Surgery) | DX: I96 Gangrene, not elsewhere classified (principal); I87.2 Venous insufficiency (chronic) (peripheral); L97.821 Non-pressure chronic ulcer of other part of left lower leg limited to breakdown of skin; L97.521 Non-pressure chronic ulcer of other part of left foot limited to breakdown of skin | CPT/HCPCS: 97597 ==

== ENCOUNTER → 2024-11-14 14:01 | Outpatient (BNVA) | payer MEDICARE, MEDICAID, SELFPAY | PROVIDERS: PCP Family Medicine; Visit Provider Thoracic Surgery (Cardiothoracic Vascular Surgery) | DX: I96 Gangrene, not elsewhere classified (principal); L97.811 Non-pressure chronic ulcer of other part of right lower leg limited to breakdown of skin; Z09 Encounter for follow-up examination after completed treatment for conditions other than malignant neoplasm | CPT/HCPCS: 97597; J9999 ==

== ENCOUNTER → 2024-11-21 10:47 | Outpatient (BNVA) | payer MEDICARE, MEDICAID, SELFPAY | PROVIDERS: PCP Family Medicine; Visit Provider Thoracic Surgery (Cardiothoracic Vascular Surgery) | DX: I96 Gangrene, not elsewhere classified (principal); I87.2 Venous insufficiency (chronic) (peripheral); L97.811 Non-pressure chronic ulcer of other part of right lower leg limited to breakdown of skin | CPT/HCPCS: 97597; A6210 ==

== ENCOUNTER → 2024-11-29 08:59 | Outpatient (BNVA) | payer MEDICARE, MEDICAID, SELFPAY | PROVIDERS: PCP Family Medicine; Visit Provider Thoracic Surgery (Cardiothoracic Vascular Surgery) | DX: I96 Gangrene, not elsewhere classified (principal); I87.2 Venous insufficiency (chronic) (peripheral); L97.811 Non-pressure chronic ulcer of other part of right lower leg limited to breakdown of skin; Z09 Encounter for follow-up examination after completed treatment for conditions other than malignant neoplasm | CPT/HCPCS: 97597; A6210 ==

== ENCOUNTER → 2024-12-06 09:42 | Outpatient (BNVA) | payer MEDICARE, MEDICAID, SELFPAY | PROVIDERS: PCP Family Medicine; Visit Provider Thoracic Surgery (Cardiothoracic Vascular Surgery) | DX: I96 Gangrene, not elsewhere classified (principal); I87.2 Venous insufficiency (chronic) (peripheral); L97.811 Non-pressure chronic ulcer of other part of right lower leg limited to breakdown of skin | CPT/HCPCS: 97597; A6210 ==

== ENCOUNTER → 2024-12-13 09:48 | Outpatient (BNVA) | payer MEDICARE, MEDICAID, SELFPAY | PROVIDERS: PCP Family Medicine; Visit Provider Thoracic Surgery (Cardiothoracic Vascular Surgery) | DX: I96 Gangrene, not elsewhere classified (principal); I87.2 Venous insufficiency (chronic) (peripheral); L97.811 Non-pressure chronic ulcer of other part of right lower leg limited to breakdown of skin; L97.821 Non-pressure chronic ulcer of other part of left lower leg limited to breakdown of skin | CPT/HCPCS: 97597; A6210; A6252 ==

== ENCOUNTER → 2024-12-20 09:24 | Outpatient (BNVA) | payer MEDICARE, MEDICAID, SELFPAY | PROVIDERS: PCP Family Medicine; Visit Provider Thoracic Surgery (Cardiothoracic Vascular Surgery) | DX: I96 Gangrene, not elsewhere classified (principal); L97.811 Non-pressure chronic ulcer of other part of right lower leg limited to breakdown of skin; Z09 Encounter for follow-up examination after completed treatment for conditions other than malignant neoplasm | CPT/HCPCS: 97597; A6210 ==

== ENCOUNTER → 2024-12-27 09:28 | Outpatient (BNVA) | payer MEDICARE, MEDICAID, SELFPAY | PROVIDERS: PCP Family Medicine; Visit Provider Thoracic Surgery (Cardiothoracic Vascular Surgery) | DX: I96 Gangrene, not elsewhere classified (principal); I87.2 Venous insufficiency (chronic) (peripheral); L97.811 Non-pressure chronic ulcer of other part of right lower leg limited to breakdown of skin | CPT/HCPCS: 97597; A6210 ==

== ENCOUNTER → 2025-01-09 08:24 | Outpatient (BNVA) | payer MEDICARE, MEDICAID, SELFPAY | PROVIDERS: PCP Family Medicine; Visit Provider Nurse Practitioner Family | DX: M25.50 Pain in unspecified joint (principal); L81.4 Other melanin hyperpigmentation; L57.8 Other skin changes due to chronic exposure to nonionizing radiation; D22.39 Melanocytic nevi of other parts of face; Z08 Encounter for follow-up examination after completed treatment for malignant neoplasm; Z85.828 Personal history of other malignant neoplasm of skin; D48.5 Neoplasm of uncertain behavior of skin; L57.0 Actinic keratosis | CPT/HCPCS: 11102; 17000; 99213 ==